=== PATIENT | male | born 1940 | race African-American/Black ===

== ENCOUNTER 2018-11-24 15:25 | Inpatient (IN) | payer BC, OTHER ==
[~2018-11-24] VITALS: Ht 162.6 cm; Wt 114.8 kg
[~2018-11-24 15:25] MED LIST: ACET325T9 PO; ACET500T33 PO; ACET500T68 PO; ALLO100T PO; AMLO10TA8 PO; AMLO5TAB10 PO; AMOX1TAB10 PO; ASPI-612 PO; ATOR40TA59 PO; ATORVASTATIN CA80 MG PO; CALC0.5C8 PO; CARV12.511 PO; CARV25TA2 PO; CARV3.1210 PO; CHOL2000 PO; CHOL200074 PO; CLON0.1T12 PO; CLOP75TA PO; CYAN-25 PO; FOLI0.8T21 PO; FURO20TA3 PO; FURO40TA4 PO; FURO80TA3 PO; HUM100VI5 SQ; HYDR-2761 PO; HYDR-3164 PO; INSU100I11 SQ; INSU100I16 SQ; LACT1CAP19 PO; LISI10TA2 PO; LOSA-73 PO; OMEP20CA10 PO; OMEP40CA5 PO; PANT40TA77 PO; PRED-220 PO; PREG25CA PO; PREG50CA PO; Pantoprazole PO; SENN1TAB15 PO; SEVE800T9 PO; WARF-31 PO; WARF-78 PO; WARF2TAB PO; WARF3TAB50 PO; WARF6TAB47 PO
[2018-11-24 17:52] VITALS: BP 119/35
[2018-11-24 19:00] VITALS: BP 149/90
[2018-11-24] MEDS ORDERED: ASPI-630 PO (20:22)
[2018-11-24] MEDS ORDERED: HYDR-2761 PO (20:22)
[2018-11-24] MEDS ORDERED: ACET325T9 PO (20:22)
[2018-11-24] MEDS ORDERED: CYAN-25 PO (20:22)
[2018-11-24] MEDS ORDERED: PREG50CA PO (20:22)
[2018-11-24] MEDS ORDERED: PANT20TA2 PO (20:22)
[2018-11-24] MEDS ORDERED: LACT1CAP48 PO (20:22)
[2018-11-24] MEDS ORDERED: SEVE800T9 PO (20:22)
[2018-11-24] MEDS ORDERED: FOLI1CAP10 PO (20:22)
[2018-11-24] MEDS ORDERED: CHOL10003 PO (20:22)
[2018-11-24] MEDS ORDERED: ALLO100T PO (20:22)
[2018-11-24] MEDS ORDERED: ATOR40TA PO (20:22)
[2018-11-24] MEDS ORDERED: CLOP75TA PO (20:22)
[2018-11-24] MEDS ORDERED: CARV3.1210 PO (20:22)
[2018-11-24] MEDS ORDERED: INSU100V SQ (20:29)
[2018-11-24] MEDS ORDERED: DEXTROSE 50% 25 GM / 50ML DISP.SYRIN. IV PRN (20:45)
[2018-11-24] MEDS ORDERED: INSULIN LISPRO 300 UNITS/3 ML INSULN.PEN. SQ SCH (21:00)
[2018-11-24] MEDS: LACTOBACILLUS RHAMNOSUS GG 1 CAPSULE. PO SCH (21:47)
[2018-11-24] MEDS: ATORVASTATIN CALCIUM 40 MG TABLET. PO SCH (21:47)
[2018-11-24] MEDS: HYDROcodone/APAP 5/325MG 1 TAB TABLET PO PRN (21:47)
[2018-11-24] MEDS: PREGABALIN 50 MG CAPSULE PO SCH (21:47)
[2018-11-24] MEDS: CARVEDILOL 3.125 MG TABLET. PO SCH (21:48)
[2018-11-24 22:44] VITALS: BP 136/88
--- NOTE | 2018-11-25 00:01 | NUR ---
Pt. arrived around 174 as a direct admit. He is A/O x4 and will make needs known.
[2018-11-25 02:37] VITALS: BP 108/43
[2018-11-25 06:07] LABS: BASO % 0 % (0-3); EOS # 0.3 x10^3/uL (0.0-0.7); EOS % 6 % (0-3); HEMATOCRIT 21.3 % (39.0-53.0); HEMOGLOBIN 7.2 g/dL (13.0-17.5); LYMPH # 1.1 x10^3/uL (1.0-4.8); LYMPH % 22 % (24-48); MEAN CORPUSCULAR HEMOGLOBIN 31 pg (25-35); MEAN CORPUSCULAR HGB CONC 34 g/dL (31-37); MEAN CORPUSCULAR VOLUME 92 fL (79-100); MONO # 0.4 x10^3/uL (0.0-1.1); MONO % 8 % (0-9); NEUT # 3.4 x10^3uL (1.8-7.7); NEUT % 64 % (31-73); PLATELET COUNT 109 x10^3/uL (140-400); RED BLOOD COUNT 2.32 x10^6/uL (4.30-5.70); WHITE BLOOD COUNT 5.3 x10^3/uL (4.0-11.0)
--- NOTE | 2018-11-25 06:23 | EKG ---
[facility] [address] [place] [address] Test Date: 2018-11-25 Test Time: 07:16:32 Pat Name: NARENDRA MACIAS Department: Room: 4 Gender: M E Commerce Developer: ADAN : 1940 Requested By: KIMI TIDWELL Order Number: [id number] Reading MD: Griffin Soto Measurements Intervals [place] Rate: 60 P: RI: QRS: 117 QRSD: 146 T: -178 QT: 474 QTc: 474 Interpretive Statements V PACED RHYTHM Electronically Signed On 11-30-2018 15:12:25 DIGITAL STRATEGIST SENIOR MANAGER by Griffin Soto
[2018-11-25 06:26] LABS: ALBUMIN 2.4 g/dL (3.4-5.0); ALBUMIN/GLOBULIN RATIO 0.5 (1.0-1.7); CALCIUM 8.6 mg/dL (8.5-10.1); CREATININE 6.9 mg/dL (0.7-1.3); GFR 9.4; TOTAL BILIRUBIN 0.9 mg/dL (0.2-1.0); TOTAL PROTEIN 6.9 g/dL (6.4-8.2)
[2018-11-25 06:31] LABS: POTASSIUM 5.9 mmol/L (3.5-5.1)
[2018-11-25 06:46] LABS: PROTHROMBIN TIME PATIENT 17.6 SEC (11.7-14.0)
[2018-11-25 07:00] VITALS: BP 109/43
--- NOTE | 2018-11-25 07:32 | NUR ---
Notified Dr. Byers's and Dr. James's answering services about consults and waiting for a call back. Talked w/ Dr Clay about consult and he will see him this am.
[2018-11-25] MEDS ORDERED: INSULIN LISPRO 300 UNITS/3 ML INSULN.PEN. SQ SCH (08:00)
[2018-11-25] MEDS: INSULIN LISPRO 300 UNITS/3 ML INSULN.PEN. SQ SCH ×3 (08:00→17:00)
[2018-11-25] MEDS: PANTOPRAZOLE 40 MG TABLET.DR. PO SCH (08:19)
[2018-11-25] MEDS: HYDROcodone/APAP 5/325MG 1 TAB TABLET PO PRN ×2 (08:19→21:21)
[2018-11-25] MEDS: ALLOPURINOL 100 MG TABLET. PO SCH (08:19)
[2018-11-25] MEDS: ASPIRIN CHEWABLE 81 MG TABLET. PO SCH (08:20)
[2018-11-25] MEDS: FOLIC/VIT B COMP W-C (RENAL) TABLET. PO SCH (08:20)
[2018-11-25] MEDS: CARVEDILOL 3.125 MG TABLET. PO SCH ×2 (08:20→19:20)
[2018-11-25] MEDS: LACTOBACILLUS RHAMNOSUS GG 1 CAPSULE. PO SCH ×2 (08:20→21:21)
[2018-11-25] MEDS: CLOPIDOGREL BISULFATE 75 MG TABLET PO SCH (08:20)
[2018-11-25] MEDS: SEVELAMER CARBONATE 800 MG TABLET. PO SCH ×3 (08:20→17:00)
[2018-11-25] MEDS: CHOLECALCIFEROL (VITAMIN D3) 1,000 UNIT TABLET PO SCH (08:20)
[2018-11-25] MEDS: CYANOCOBALAMIN (VITAMIN B-12) 1,000 MCG TABLET. PO SCH (08:21)
--- NOTE | 2018-11-25 08:38 | RAD ---
Chest radiograph 11/25/2018 7:26 AM INDICATION: Shortness of air, COPD COMPARISON: November 01, 2018 TECHNIQUE: Portable upright frontal view of the chest is provided. FINDINGS: The cardiomediastinal silhouette is enlarged. Right IJ central venous catheter is identified at the distal tip projecting over the cavoatrial junction. Left chest wall cardiac device is identified with a single lead projecting over the right ventricle. There are no pleural effusions. There is no pulmonary vascular congestion. There is no pneumothorax. The lungs are clear. No significant osseous abnormality is identified. IMPRESSION: Stable cardiomegaly without acute cardiopulmonary process. Electronically signed by: Radha Gonzalez MD (11/25/2018 8:34 AM) [id number]
--- NOTE | 2018-11-25 09:07 | PDOC ---
Provider Note Provider Note Vascular F/U consult , not dictated S/P recent amputation rt 1st toe S/P recent angiogram showing severe distal tibial disease Pt. with CRF on dialysis/DM/PVD S/P remote amp lt 1st toe , healed well PE: unable to palpate rt. popliteal or pedal pulse Nicely granulating ulcer lateral rt. ankle Some granulation tissue in proximal aspect of rt. 1st toe amp site, distally still with some necrotic tissue Imp: Poor chance of healing due to severe distal tibial disease Plan: Phani to wound, recommend HBO consult, if unable to heal would require a rt BK amp., Will follow while here. KIMI REBOLLEDO MD Nov 25, 2018 09:07
--- NOTE | 2018-11-25 09:31 | NUR ---
IP: Pt has a hx of vre and MSSA in toe on and R foot wound on 11/02/18. Pt readmitted with wound. Pt to be in contact precautions.
--- NOTE | 2018-11-25 09:36 | NUR ---
SW following for discharge planning, Discussed with RN. Pt is from [facility] and can return to [facility] when he is ready to discharge. SW will continue to follow.
[2018-11-25] MEDS: COLLAGENASE 250 UNIT/GM TOPICAL OINTMENT 30GM TUBE. TP SCH (09:51)
--- NOTE | 2018-11-25 10:22 | PDOC1 ---
History and Physical Date of Admission Date of Admission DATE: 11/25/18 TIME: 10:10 Identification/Chief Complaint Chief Complaint necrotic left foot wound with history of osteomyelitis of right first toe and first metatarsal History of Present Illness History of Present Illness history of osteomyelitis of right first toe and first metatarsal and non healing right great toe wound treated with iv meropenem and oral zyvox and wound vac at [facility] seeen by ID doctor Joselito trejo who recommended hospitalization because wound was necrotic and looked worse. no fever. Past Medical History Cardiovascular: AFIB, HTN, Other (PAD) CENTRAL NERVOUS SYSTEM: Periperal neuropathy Renal/: Other (end stage renal disease on hemodialyusis) Endocrine: Diabetes Past Surgical History Past Surgical History: Pacemaker, Cataract Removal, Other (pacemaker and lefgt femoral artery stend and amputation of lecft gret toe) Family History Family History: Other (not contributory) Social History Smoke: No ALCOHOL: none Drugs: None Current Medications Current Medications Current Medications Acetaminophen (Tylenol) 325 mg PRN Q4HRS PRN PO MILD PAIN / TEMP; Start at 20:30 Allopurinol (Zyloprim) 100 mg DAILY PO Last administered on 11/25/18at 08:19; Start 11/25/18 at 09:00 Aspirin (Children'S Aspirin) 81 mg DAILY PO Last administered on 11/25/18at 08: 20; Start 11/25/18 at 09:00 Atorvastatin Calcium (Lipitor) 40 mg HS PO Last administered on 11/24/18at 21: 47; Start 11/24/18 at 21:00 Carvedilol (Coreg) 3.125 mg BIDWMEALS PO Last administered on 11/25/18at 08:20 ; Start 11/24/18 at 21:00 Vitamin D (Vitamin D3) 1,000 unit DAILY PO Last administered on 11/25/18at 08: 20; Start 11/25/18 at 09:00 Clopidogrel Bisulfate (Plavix) 75 mg DAILY PO Last administered on 11/25/18at 08:20; Start 11/25/18 at 09:00 Cyanocobalamin (Vitamin B-12) 1,000 mcg DAILY PO Last administered on at 08:21; Start 11/25/18 at 09:00 Acetaminophen/ Hydrocodone Bitart (Lortab 5/325) 1 tab PRN Q4HRS PRN PO MODERATE - SEVERE PAIN Last administered on 11/25/18at 08:19; Start 11/24/18 at 20:30 Pregabalin (Lyrica) 50 mg HS PO Last administered on 11/24/18at 21:47; Start 11/24/18 at 21:00 Sevelamer Carbonate (Renvela) 800 mg TIDWMEALS PO Last administered on at 08:20; Start 11/25/18 at 08:00 Vitamin B Complex/ Vitamin C (Krista-Beatriz) 1 tab DAILY PO Last administered on at 08:20; Start 11/25/18 at 09:00 Lactobacillus Rhamnosus (Culturelle) 1 cap BID PO Last administered on at 08:20; Start 11/24/18 at 21:00 Pantoprazole Sodium (Protonix) 40 mg DAILYAC PO Last administered on at 08:19; Start 11/25/18 at 07:30 Insulin Human Lispro (HumaLOG) 0-5 UNITS TIDWMEALS SQ ; Start 11/24/18 at 21:00 ; Stop 11/24/18 at 21:57; Status DC Dextrose (Dextrose 50%-Water Syringe) 12.5 gm PRN Q15MIN PRN IV SEE COMMENTS; Start 11/24/18 at 20:45 Insulin Human Lispro (HumaLOG) 0-5 UNITS TIDWMEALS SQ ; Start 11/25/18 at 08:00 ; Stop 11/25/18 at 08:00; Status DC Insulin Human Lispro (HumaLOG) 0-5 UNITS TIDWMEALS SQ ; Start 11/25/18 at 08:00 Collagenase (Santyl) 1 judi DAILY TP Last administered on 11/25/18at 09:51; Start 11/25/18 at 10:00 Active Scripts Active Hydrocodone-Apap 5-325 (Hydrocodone Bit/Acetaminophen) 1 Tab Tablet 1 Tab PO PRN Q4HRS PRN 30 Days Aspirin Ec (Aspirin) 81 Mg Tablet. 81 Mg PO DAILYWBKFT 30 Days [Pantoprazole] 40 MG Tablet.dr 40 Mg PO DAILYAC 30 Days Humalog (Insulin Lispro) 100 Unit/1 Ml Insuln.pen 0 Units SQ TIDWMEALS 30 Days BG 150-199= 1 units 200-299= 2 units 300-399= 4 units 400-499= 6 units ac tid sliding scale Prednisone (Prednisone) 10 Mg Tablet 10 Mg PO DAILY 4 Days Culturelle (Lactobacillus Rhamnosus Gg) 1 Each Cap.sprink 1 Cap PO BID 30 Days Tylenol (Acetaminophen) 325 Mg Tablet 325 Mg PO PRN Q4HRS PRN 30 Days Carvedilol (Carvedilol) 3.125 Mg Tablet 3.125 Mg PO BIDWMEALS 30 Days Renvela (Sevelamer Carbonate) 800 Mg Tablet 800 Mg PO TIDWMEALS 30 Days Pantoprazole Sodium 40 Mg Tablet.dr 40 Mg PO DAILYAC 30 Days Krista-Beatriz Tablet (Folic Acid/Vitamin B Comp W-C) 0.8 Mg Tablet 1 Tab PO DAILY 30 Days Reported Humalog (Insulin Lispro) 100 Unit/1 Ml Vial 1 Unit SQ TIDAC Vitamin B-12 (Cyanocobalamin (Vitamin B-12)) 1,000 Mcg Tablet 1 Tab PO DAILY Vitamin D3 (Cholecalciferol (Vitamin D3)) 1,000 Unit Tablet 1 Tab PO DAILY Allopurinol 100 Mg Tablet 1 Tab PO DAILY Renal Caps Softgel (Folic Acid/Vitamin B Comp W-C) 1 Mg Capsule 1 Cap PO DAILY Acidophilus Lactobacilli (Lactobacillus Acidophilus) 1 Each Capsule 1 Each PO BID Protonix (Pantoprazole Sodium) 20 Mg Tablet.dr 40 Mg PO DAILY Renvela (Sevelamer Carbonate) 800 Mg Tablet 800 Mg PO TIDWMEALS Lyrica (Pregabalin) 50 Mg Capsule 50 Mg PO HS Tylenol (Acetaminophen) 325 Mg Tablet 1 Tab PO PRN Q4HRS Hydrocodone-Apap 5-325 (Hydrocodone Bit/Acetaminophen) 1 Tab Tablet 1 Tab PO PRN Q4HRS PRN Aspirin 81 Mg Tab.chew 81 Mg PO DAILY Carvedilol (Carvedilol) 3.125 Mg Tablet 3.125 Mg PO BIDWMEALS Lipitor (Atorvastatin Calcium) 40 Mg Tablet 40 Mg PO HS Clopidogrel (Clopidogrel Bisulfate) 75 Mg Tablet 75 Mg PO DAILY Vitamin D (Cholecalciferol (Vitamin D3)) 2,000 Unit Capsule 1 Cap PO DAILY Counselor 5-325 Tablet (Acetaminophen/Hydrocodone Bitart) 1 Each Tablet 1 Tab PO PRN Q4HRS PRN Lyrica (Pregabalin) 50 Mg Capsule 25 Mg PO HS Clopidogrel (Clopidogrel Bisulfate) 75 Mg Tablet 1 Tab PO DAILY Atorvastatin Calcium 40 Mg Tablet 40 Mg PO HS Allopurinol 100 Mg Tablet 1 Tab PO DAILY Vitamin B-12 (Cyanocobalamin (Vitamin B-12)) 1,000 Mcg Tablet 1 Tab PO DAILY Vitamin D-3 (Cholecalciferol (Vitamin D3)) 2,000 Unit Capsule 1,000 Unit PO DAILY Allergies Allergies: Coded Allergies: I S O L A T I O N *CONTACT* (Verified Allergy, Unknown, 11/25/18) vre No Known Medication Allergies (Verified Allergy, Unknown, 11/25/18) ROS Skin: Yes Other (foot wound) Physical Exam General: Alert HEENT: Atraumatic Lungs: Clear to auscultation Heart: S1S2 Abdomen: Soft, Other (obese) Extremities: No edema, Other (left great toe amputation. granulation tissure right ankle wound. necrotic left foot wound) Skin: No rashes Vitals Vitals Vital Signs Date Time Temp Pulse Resp B/P (MAP) Pulse Ox O2 Delivery O2 Flow Rate FiO2 11/25/18 09:44 Nasal Cannula 3.0 11/25/18 08:20 60 109/43 11/25/18 07:00 98.0 20 100 98.0 Labs Labs Laboratory Tests Test 11/24/18 19:56 11/25/18 05:25 11/25/18 07:03 Glucose (Fingerstick) 146 mg/dL (70-99) 82 mg/dL (70-99) White Blood Count 5.3 x10^3/uL (4.0-11.0) Red Blood Count 2.32 x10^6/uL (4.30-5.70) Hemoglobin 7.2 g/dL (13.0-17.5) Hematocrit 21.3 % (39.0-53.0) Mean Corpuscular Volume 92 fL (79-100) Mean Corpuscular Hemoglobin 31 pg (25-35) Mean Corpuscular Hemoglobin Concent 34 g/dL (31-37) Red Cell Distribution Width 19.0 % (11.5-14.5) Platelet Count 109 x10^3/uL (140-400) Neutrophils (%) (Auto) 64 % (31-73) Lymphocytes (%) (Auto) 22 % (24-48) Monocytes (%) (Auto) 8 % (0-9) Eosinophils (%) (Auto) 6 % (0-3) Basophils (%) (Auto) 0 % (0-3) Neutrophils # (Auto) 3.4 x10^3uL (1.8-7.7) Lymphocytes # (Auto) 1.1 x10^3/uL (1.0-4.8) Monocytes # (Auto) 0.4 x10^3/uL (0.0-1.1) Eosinophils # (Auto) 0.3 x10^3/uL (0.0-0.7) Basophils # (Auto) 0.0 x10^3/uL (0.0-0.2) Erythrocyte Sedimentation Rate 90 (0-15) Prothrombin Time 17.6 SEC (11.7-14.0) Prothromb Time International Ratio 1.5 (0.8-1.1) Sodium Level 138 mmol/L (136-145) Potassium Level 5.9 mmol/L (3.5-5.1) Chloride Level 99 mmol/L (98-107) Carbon Dioxide Level 31 mmol/L (21-32) Anion Gap 8 (6-14) Blood Urea Nitrogen 64 mg/dL (8-26) Creatinine 6.9 mg/dL (0.7-1.3) Estimated GFR (Cockcroft-Gault) 9.4 BUN/Creatinine Ratio 9 (6-20) Glucose Level 97 mg/dL (70-99) Calcium Level 8.6 mg/dL (8.5-10.1) Total Bilirubin 0.9 mg/dL (0.2-1.0) Aspartate Amino Transf (AST/SGOT) 20 U/L (15-37) Alanine Aminotransferase (ALT/SGPT) 22 U/L (16-63) Alkaline Phosphatase 144 U/L (46-116) Total Protein 6.9 g/dL (6.4-8.2) Albumin 2.4 g/dL (3.4-5.0) Albumin/Globulin Ratio 0.5 (1.0-1.7) Laboratory Tests Test 11/24/18 19:56 11/25/18 05:25 11/25/18 07:03 Glucose (Fingerstick) 146 mg/dL (70-99) 82 mg/dL (70-99) White Blood Count 5.3 x10^3/uL (4.0-11.0) Red Blood Count 2.32 x10^6/uL (4.30-5.70) Hemoglobin 7.2 g/dL (13.0-17.5) Hematocrit 21.3 % (39.0-53.0) Mean Corpuscular Volume 92 fL (79-100) Mean Corpuscular Hemoglobin 31 pg (25-35) Mean Corpuscular Hemoglobin Concent 34 g/dL (31-37) Red Cell Distribution Width 19.0 % (11.5-14.5) Platelet Count 109 x10^3/uL (140-400) Neutrophils (%) (Auto) 64 % (31-73) Lymphocytes (%) (Auto) 22 % (24-48) Monocytes (%) (Auto) 8 % (0-9) Eosinophils (%) (Auto) 6 % (0-3) Basophils (%) (Auto) 0 % (0-3) Neutrophils # (Auto) 3.4 x10^3uL (1.8-7.7) Lymphocytes # (Auto) 1.1 x10^3/uL (1.0-4.8) Monocytes # (Auto) 0.4 x10^3/uL (0.0-1.1) Eosinophils # (Auto) 0.3 x10^3/uL (0.0-0.7) Basophils # (Auto) 0.0 x10^3/uL (0.0-0.2) Erythrocyte Sedimentation Rate 90 (0-15) Prothrombin Time 17.6 SEC (11.7-14.0) Prothromb Time International Ratio 1.5 (0.8-1.1) Sodium Level 138 mmol/L (136-145) Potassium Level 5.9 mmol/L (3.5-5.1) Chloride Level 99 mmol/L (98-107) Carbon Dioxide Level 31 mmol/L (21-32) Anion Gap 8 (6-14) Blood Urea Nitrogen 64 mg/dL (8-26) Creatinine 6.9 mg/dL (0.7-1.3) Estimated GFR (Cockcroft-Gault) 9.4 BUN/Creatinine Ratio 9 (6-20) Glucose Level 97 mg/dL (70-99) Calcium Level 8.6 mg/dL (8.5-10.1) Total Bilirubin 0.9 mg/dL (0.2-1.0) Aspartate Amino Transf (AST/SGOT) 20 U/L (15-37) Alanine Aminotransferase (ALT/SGPT) 22 U/L (16-63) Alkaline Phosphatase 144 U/L (46-116) Total Protein 6.9 g/dL (6.4-8.2) Albumin 2.4 g/dL (3.4-5.0) Albumin/Globulin Ratio 0.5 (1.0-1.7) Images Images cxr negative ekg paced VTE Prophylaxis Ordered VTE Prophylaxis Devices: Yes VTE Pharmacological Prophylaxi: Yes (heparin sq) Assessment/Plan Assessment/Plan necrotic left foot wound osteomyelitis of right great toe and first metatarsal left ankle wound with granulation tissue severe PAD RLE involving tibial and pedal vessels ESRD on hemodialysis m-w-f diabetes mellitus type 2 with peripheral neuropathy morbid obesity debility Plan consult vascular surgery and ID and wound care HBO consult continue antibiotics and wound care and wound vac hemodialysis micaf KIMI TIDWELL MD Nov 25, 2018 10:22
--- NOTE | 2018-11-25 10:23 | PDOC ---
Infectious Disease Note Subjective Subjective pt known to us, was admitted from office with necrotic wound. ALEXUS VAUGHAN denies n/v/d/fever Vital Sign Vital Signs Vital Signs Date Time Temp Pulse Resp B/P (MAP) Pulse Ox O2 Delivery O2 Flow Rate FiO2 11/25/18 09:44 Nasal Cannula 3.0 11/25/18 08:20 60 109/43 11/25/18 07:00 98.0 20 100 98.0 Physical Exam PHYSICAL EXAM GENERAL:axox3 in nad HEENT: Oral cavity clear NECK: Supple. RT SCL (11/09) LUNGS: Clear. HEART: S1, S2 regular. ABDOMEN: Soft, NT, BS present EXTREMITIES: Wound vac in place right foot. seen wound with wound team, half wound looks good, rest necrotic NEUROLOGIC: Awake, responds appropriately Labs Lab Laboratory Tests Test 11/24/18 19:56 11/25/18 05:25 11/25/18 07:03 Glucose (Fingerstick) 146 mg/dL (70-99) 82 mg/dL (70-99) White Blood Count 5.3 x10^3/uL (4.0-11.0) Red Blood Count 2.32 x10^6/uL (4.30-5.70) Hemoglobin 7.2 g/dL (13.0-17.5) Hematocrit 21.3 % (39.0-53.0) Mean Corpuscular Volume 92 fL (79-100) Mean Corpuscular Hemoglobin 31 pg (25-35) Mean Corpuscular Hemoglobin Concent 34 g/dL (31-37) Red Cell Distribution Width 19.0 % (11.5-14.5) Platelet Count 109 x10^3/uL (140-400) Neutrophils (%) (Auto) 64 % (31-73) Lymphocytes (%) (Auto) 22 % (24-48) Monocytes (%) (Auto) 8 % (0-9) Eosinophils (%) (Auto) 6 % (0-3) Basophils (%) (Auto) 0 % (0-3) Neutrophils # (Auto) 3.4 x10^3uL (1.8-7.7) Lymphocytes # (Auto) 1.1 x10^3/uL (1.0-4.8) Monocytes # (Auto) 0.4 x10^3/uL (0.0-1.1) Eosinophils # (Auto) 0.3 x10^3/uL (0.0-0.7) Basophils # (Auto) 0.0 x10^3/uL (0.0-0.2) Erythrocyte Sedimentation Rate 90 (0-15) Prothrombin Time 17.6 SEC (11.7-14.0) Prothromb Time International Ratio 1.5 (0.8-1.1) Sodium Level 138 mmol/L (136-145) Potassium Level 5.9 mmol/L (3.5-5.1) Chloride Level 99 mmol/L (98-107) Carbon Dioxide Level 31 mmol/L (21-32) Anion Gap 8 (6-14) Blood Urea Nitrogen 64 mg/dL (8-26) Creatinine 6.9 mg/dL (0.7-1.3) Estimated GFR (Cockcroft-Gault) 9.4 BUN/Creatinine Ratio 9 (6-20) Glucose Level 97 mg/dL (70-99) Calcium Level 8.6 mg/dL (8.5-10.1) Total Bilirubin 0.9 mg/dL (0.2-1.0) Aspartate Amino Transf (AST/SGOT) 20 U/L (15-37) Alanine Aminotransferase (ALT/SGPT) 22 U/L (16-63) Alkaline Phosphatase 144 U/L (46-116) Total Protein 6.9 g/dL (6.4-8.2) Albumin 2.4 g/dL (3.4-5.0) Albumin/Globulin Ratio 0.5 (1.0-1.7) Objective Assessment Recent 1 st toe amp with developing gangrene, s/p right first toe open ray amputation, Right lateral malleolus wound s/p sharp excisional debridement removing necrotic subcutaneous tissue, 11/02. BC neg 11/02. enterobacter aerogenes,Cipro sensitive, enterococcus fecalis VRE, linezolid sensitive,Amp sens not available, daptomycin suscep,d/w micro Gram variable nuria id still pending PAD s/p angio recently ESRD/HD Diarrhea Plan Plan of Care cont zyvox and meropenem hyperbaric o2 supportive care d/w ROD Rucker MD Nov 25, 2018 10:23
[2018-11-25] MEDS ORDERED: DIALYSIS PATIENT. MC PRN ×3 (10:45→14:45)
[2018-11-25 11:00] VITALS: BP 96/33
[2018-11-25] MEDS: LINEZOLID 600 MG TABLET PO SCH ×2 (12:04→21:22)
--- NOTE | 2018-11-25 13:22 | PDOC2 ---
CONSULT Date of Consult Date of Consult DATE: 11/25/18 TIME: 13:16 Reason for Consult Reason for Consult: ESRD Source Source: Chart review, Patient History of Present Illness Reason for Visit: Pt is 77 yo AAM with necrotic left foot wound with history of osteomyelitis of right first toe and first metatarsal and non healing right great toe wound treated with iv meropenem and oral zyvox and wound vac at [facility] ESRD on HD MWF . denies N/V/D. No F/C Past Medical History Cardiovascular: AFIB, HTN, Other (PAD) CENTRAL NERVOUS SYSTEM: Periperal neuropathy Renal/: Other (end stage renal disease on hemodialyusis) Endocrine: Diabetes Past Surgical History Past Surgical History: Pacemaker, Cataract Removal, Other (pacemaker and lefgt femoral artery stend and amputation of lecft gret toe) Family History Family History: Other (not contributory) Social History No ALCOHOL: none Drugs: None Current Medications Current Medications Current Medications Acetaminophen (Tylenol) 325 mg PRN Q4HRS PRN PO MILD PAIN / TEMP; Start at 20:30 Allopurinol (Zyloprim) 100 mg DAILY PO Last administered on 11/25/18at 08:19; Start 11/25/18 at 09:00 Aspirin (Children'S Aspirin) 81 mg DAILY PO Last administered on 11/25/18at 08: 20; Start 11/25/18 at 09:00 Atorvastatin Calcium (Lipitor) 40 mg HS PO Last administered on 11/24/18at 21: 47; Start 11/24/18 at 21:00 Carvedilol (Coreg) 3.125 mg BIDWMEALS PO Last administered on 11/25/18at 08:20 ; Start 11/24/18 at 21:00 Vitamin D (Vitamin D3) 1,000 unit DAILY PO Last administered on 11/25/18at 08: 20; Start 11/25/18 at 09:00 Clopidogrel Bisulfate (Plavix) 75 mg DAILY PO Last administered on 11/25/18at 08:20; Start 11/25/18 at 09:00 Cyanocobalamin (Vitamin B-12) 1,000 mcg DAILY PO Last administered on at 08:21; Start 11/25/18 at 09:00 Acetaminophen/ Hydrocodone Bitart (Lortab 5/325) 1 tab PRN Q4HRS PRN PO MODERATE - SEVERE PAIN Last administered on 11/25/18at 08:19; Start 11/24/18 at 20:30 Pregabalin (Lyrica) 50 mg HS PO Last administered on 11/24/18at 21:47; Start 11/24/18 at 21:00 Sevelamer Carbonate (Renvela) 800 mg TIDWMEALS PO Last administered on at 12:04; Start 11/25/18 at 08:00 Vitamin B Complex/ Vitamin C (Krista-Beatriz) 1 tab DAILY PO Last administered on at 08:20; Start 11/25/18 at 09:00 Lactobacillus Rhamnosus (Culturelle) 1 cap BID PO Last administered on at 08:20; Start 11/24/18 at 21:00 Pantoprazole Sodium (Protonix) 40 mg DAILYAC PO Last administered on at 08:19; Start 11/25/18 at 07:30 Insulin Human Lispro (HumaLOG) 0-5 UNITS TIDWMEALS SQ ; Start 11/24/18 at 21:00 ; Stop 11/24/18 at 21:57; Status DC Dextrose (Dextrose 50%-Water Syringe) 12.5 gm PRN Q15MIN PRN IV SEE COMMENTS; Start 11/24/18 at 20:45 Insulin Human Lispro (HumaLOG) 0-5 UNITS TIDWMEALS SQ ; Start 11/25/18 at 08:00 ; Stop 11/25/18 at 08:00; Status DC Insulin Human Lispro (HumaLOG) 0-5 UNITS BG 300-39... TIDWMEALS SQ ; Start at 08:00 Collagenase (Santyl) 1 judi DAILY TP Last administered on 11/25/18at 09:51; Start 11/25/18 at 10:00 Meropenem 500 mg/ Sodium Chloride 50 ml @ 100 mls/hr Q12HR IV ; Start at 21:00; Status UNV Daptomycin 690 mg/ Sodium Chloride 50 ml @ 100 mls/hr MoWeFr@1600 IV ; Start 11/25/18 at 16:00 Heparin Sodium (Porcine) (Heparin Sodium) 5,000 unit Q12HR SQ ; Start 11/25/18 at 21:00 Meropenem 500 mg/ Sodium Chloride 50 ml @ 100 mls/hr DAILY16 IV ; Start at 16:00 Linezolid (Zyvox) 600 mg BID PO Last administered on 11/25/18at 12:04; Start 11/25/18 at 11:00 Info (PHARMACY MONITORING -- do not chart) 1 each PRN DAILY PRN MC SEE COMMENTS ; Start 11/25/18 at 10:45 Active Scripts Active Hydrocodone-Apap 5-325 (Hydrocodone Bit/Acetaminophen) 1 Tab Tablet 1 Tab PO PRN Q4HRS PRN 30 Days Aspirin Ec (Aspirin) 81 Mg Tablet. 81 Mg PO DAILYWBKFT 30 Days [Pantoprazole] 40 MG Tablet. 40 Mg PO DAILYAC 30 Days Humalog (Insulin Lispro) 100 Unit/1 Ml Insuln.pen 0 Units SQ TIDWMEALS 30 Days BG 150-199= 1 units 200-299= 2 units 300-399= 4 units 400-499= 6 units ac tid sliding scale Prednisone (Prednisone) 10 Mg Tablet 10 Mg PO DAILY 4 Days Culturelle (Lactobacillus Rhamnosus Gg) 1 Each Cap.sprink 1 Cap PO BID 30 Days Tylenol (Acetaminophen) 325 Mg Tablet 325 Mg PO PRN Q4HRS PRN 30 Days Carvedilol (Carvedilol) 3.125 Mg Tablet 3.125 Mg PO BIDWMEALS 30 Days Renvela (Sevelamer Carbonate) 800 Mg Tablet 800 Mg PO TIDWMEALS 30 Days Pantoprazole Sodium 40 Mg Tablet. 40 Mg PO DAILYAC 30 Days Krista-Beatriz Tablet (Folic Acid/Vitamin B Comp W-C) 0.8 Mg Tablet 1 Tab PO DAILY 30 Days Reported Humalog (Insulin Lispro) 100 Unit/1 Ml Vial 1 Unit SQ TIDAC Vitamin B-12 (Cyanocobalamin (Vitamin B-12)) 1,000 Mcg Tablet 1 Tab PO DAILY Vitamin D3 (Cholecalciferol (Vitamin D3)) 1,000 Unit Tablet 1 Tab PO DAILY Allopurinol 100 Mg Tablet 1 Tab PO DAILY Renal Caps Softgel (Folic Acid/Vitamin B Comp W-C) 1 Mg Capsule 1 Cap PO DAILY Acidophilus Lactobacilli (Lactobacillus Acidophilus) 1 Each Capsule 1 Each PO BID Protonix (Pantoprazole Sodium) 20 Mg Tablet.dr 40 Mg PO DAILY Renvela (Sevelamer Carbonate) 800 Mg Tablet 800 Mg PO TIDWMEALS Lyrica (Pregabalin) 50 Mg Capsule 50 Mg PO HS Tylenol (Acetaminophen) 325 Mg Tablet 1 Tab PO PRN Q4HRS Hydrocodone-Apap 5-325 (Hydrocodone Bit/Acetaminophen) 1 Tab Tablet 1 Tab PO PRN Q4HRS PRN Aspirin 81 Mg Tab.chew 81 Mg PO DAILY Carvedilol (Carvedilol) 3.125 Mg Tablet 3.125 Mg PO BIDWMEALS Lipitor (Atorvastatin Calcium) 40 Mg Tablet 40 Mg PO HS Clopidogrel (Clopidogrel Bisulfate) 75 Mg Tablet 75 Mg PO DAILY Vitamin D (Cholecalciferol (Vitamin D3)) 2,000 Unit Capsule 1 Cap PO DAILY [place] 5-325 Tablet (Acetaminophen/Hydrocodone Bitart) 1 Each Tablet 1 Tab PO PRN Q4HRS PRN Lyrica (Pregabalin) 50 Mg Capsule 25 Mg PO HS Clopidogrel (Clopidogrel Bisulfate) 75 Mg Tablet 1 Tab PO DAILY Atorvastatin Calcium 40 Mg Tablet 40 Mg PO HS Allopurinol 100 Mg Tablet 1 Tab PO DAILY Vitamin B-12 (Cyanocobalamin (Vitamin B-12)) 1,000 Mcg Tablet 1 Tab PO DAILY Vitamin D-3 (Cholecalciferol (Vitamin D3)) 2,000 Unit Capsule 1,000 Unit PO DAILY Allergies Allergies: Coded Allergies: I S O L A T I O N *CONTACT* (Verified Allergy, Unknown, 11/25/18) vre No Known Medication Allergies (Verified Allergy, Unknown, 11/25/18) ROS Review of System As per HPI Physical Exam Physical Exam GEN: NAD HEEN: om moist NECK: Supple CVS: RRR RESP: CTA, No Acc. Muscle Use GI: BS + ve, Non Tender, Non Distended : No Miller Ext- No edema Neuro Grossly normal Vital Signs Vital Signs Date Time Temp Pulse Resp B/P (MAP) Pulse Ox O2 Delivery O2 Flow Rate FiO2 11/25/18 11:00 98.8 68 20 96/33 (54) 100 RA/2L 98.8 11/25/18 09:44 3.0 Assessment & Plan ESRD - On HD MWF HD today as Ordered, seen on HD, tolerating well Discussed with lump receiver Labs reviewed Necrotic left foot wound/osteomyelitis of right great toe and first metatarsal ID and vascular Severe PAD RLE i DM type 2 with peripheral neuropathy- Morbid obesity Labs Labs Laboratory Tests Test 11/24/18 19:56 11/25/18 05:25 11/25/18 07:03 11/25/18 10:48 Glucose (Fingerstick) 146 mg/dL (70-99) 82 mg/dL (70-99) 101 mg/dL (70-99) White Blood Count 5.3 x10^3/uL (4.0-11.0) Red Blood Count 2.32 x10^6/uL (4.30-5.70) Hemoglobin 7.2 g/dL (13.0-17.5) Hematocrit 21.3 % (39.0-53.0) Mean Corpuscular Volume 92 fL (79-100) Mean Corpuscular Hemoglobin 31 pg (25-35) Mean Corpuscular Hemoglobin Concent 34 g/dL (31-37) Red Cell Distribution Width 19.0 % (11.5-14.5) Platelet Count 109 x10^3/uL (140-400) Neutrophils (%) (Auto) 64 % (31-73) Lymphocytes (%) (Auto) 22 % (24-48) Monocytes (%) (Auto) 8 % (0-9) Eosinophils (%) (Auto) 6 % (0-3) Basophils (%) (Auto) 0 % (0-3) Neutrophils # (Auto) 3.4 x10^3uL (1.8-7.7) Lymphocytes # (Auto) 1.1 x10^3/uL (1.0-4.8) Monocytes # (Auto) 0.4 x10^3/uL (0.0-1.1) Eosinophils # (Auto) 0.3 x10^3/uL (0.0-0.7) Basophils # (Auto) 0.0 x10^3/uL (0.0-0.2) Erythrocyte Sedimentation Rate 90 (0-15) Prothrombin Time 17.6 SEC (11.7-14.0) Prothromb Time International Ratio 1.5 (0.8-1.1) Sodium Level 138 mmol/L (136-145) Potassium Level 5.9 mmol/L (3.5-5.1) Chloride Level 99 mmol/L (98-107) Carbon Dioxide Level 31 mmol/L (21-32) Anion Gap 8 (6-14) Blood Urea Nitrogen 64 mg/dL (8-26) Creatinine 6.9 mg/dL (0.7-1.3) Estimated GFR (Cockcroft-Gault) 9.4 BUN/Creatinine Ratio 9 (6-20) Glucose Level 97 mg/dL (70-99) Calcium Level 8.6 mg/dL (8.5-10.1) Total Bilirubin 0.9 mg/dL (0.2-1.0) Aspartate Amino Transf (AST/SGOT) 20 U/L (15-37) Alanine Aminotransferase (ALT/SGPT) 22 U/L (16-63) Alkaline Phosphatase 144 U/L (46-116) Total Protein 6.9 g/dL (6.4-8.2) Albumin 2.4 g/dL (3.4-5.0) Albumin/Globulin Ratio 0.5 (1.0-1.7) Laboratory Tests Test 11/24/18 19:56 11/25/18 05:25 11/25/18 07:03 11/25/18 10:48 Glucose (Fingerstick) 146 mg/dL (70-99) 82 mg/dL (70-99) 101 mg/dL (70-99) White Blood Count 5.3 x10^3/uL (4.0-11.0) Red Blood Count 2.32 x10^6/uL (4.30-5.70) Hemoglobin 7.2 g/dL (13.0-17.5) Hematocrit 21.3 % (39.0-53.0) Mean Corpuscular Volume 92 fL (79-100) Mean Corpuscular Hemoglobin 31 pg (25-35) Mean Corpuscular Hemoglobin Concent 34 g/dL (31-37) Red Cell Distribution Width 19.0 % (11.5-14.5) Platelet Count 109 x10^3/uL (140-400) Neutrophils (%) (Auto) 64 % (31-73) Lymphocytes (%) (Auto) 22 % (24-48) Monocytes (%) (Auto) 8 % (0-9) Eosinophils (%) (Auto) 6 % (0-3) Basophils (%) (Auto) 0 % (0-3) Neutrophils # (Auto) 3.4 x10^3uL (1.8-7.7) Lymphocytes # (Auto) 1.1 x10^3/uL (1.0-4.8) Monocytes # (Auto) 0.4 x10^3/uL (0.0-1.1) Eosinophils # (Auto) 0.3 x10^3/uL (0.0-0.7) Basophils # (Auto) 0.0 x10^3/uL (0.0-0.2) Erythrocyte Sedimentation Rate 90 (0-15) Prothrombin Time 17.6 SEC (11.7-14.0) Prothromb Time International Ratio 1.5 (0.8-1.1) Sodium Level 138 mmol/L (136-145) Potassium Level 5.9 mmol/L (3.5-5.1) Chloride Level 99 mmol/L (98-107) Carbon Dioxide Level 31 mmol/L (21-32) Anion Gap 8 (6-14) Blood Urea Nitrogen 64 mg/dL (8-26) Creatinine 6.9 mg/dL (0.7-1.3) Estimated GFR (Cockcroft-Gault) 9.4 BUN/Creatinine Ratio 9 (6-20) Glucose Level 97 mg/dL (70-99) Calcium Level 8.6 mg/dL (8.5-10.1) Total Bilirubin 0.9 mg/dL (0.2-1.0) Aspartate Amino Transf (AST/SGOT) 20 U/L (15-37) Alanine Aminotransferase (ALT/SGPT) 22 U/L (16-63) Alkaline Phosphatase 144 U/L (46-116) Total Protein 6.9 g/dL (6.4-8.2) Albumin 2.4 g/dL (3.4-5.0) Albumin/Globulin Ratio 0.5 (1.0-1.7) Review All relevant outside records, renal labs, imaging studies, telemetry/EKG's were reviewed. WAYLON GONZALEZ MD Nov 25, 2018 13:22
--- NOTE | 2018-11-25 14:08 | NUR ---
Patient admitted last night. Spoke to Dr. Wilson, from vascular this morning, who reported no plan for surgery and that his recommendation is HBO therapy. Dr. Street updated with this plan who asked this RN to reach out to wound care for this to be set up as well as nephrology to have dialysis set up. This RN spoke to Kathryn MARTINEZ from Wound Care about the possibility of HBO therapy and how Dr. Wilson reported no need for surgery at this time. Kathryn reported to this RN that HBO therapy is usually done as outpatient and that their team will reach out to Dr. Wilson with this update and discuss patient . Dialysis set up as well and to start at 1530 today. Central line dressing also changed at this time.
[2018-11-25] MEDS ORDERED: IV NORMAL SALINE 1000ML BAG 1,000 ML IV PRN ×2 (14:30)
--- NOTE | 2018-11-25 16:00 | NUR ---
wound care patient in dialysis at this time, wound care will f/u on Wednesday11/28/2018.
[2018-11-25 19:00] VITALS: BP 125/35
[2018-11-25] MEDS: NORMAL SALINE IV SCH (19:21)
[2018-11-25] MEDS: DAPTOMYCIN IV SCH (19:21)
[2018-11-25] MEDS ORDERED: MEROPENEM 500 MG in IV NORMAL SALINE 50ML 50 ML IV SCH (21:00)
[2018-11-25] MEDS: MEROPENEM 500 MG in IV NORMAL SALINE 50ML 50 ML IV SCH (21:20)
[2018-11-25] MEDS: ATORVASTATIN CALCIUM 40 MG TABLET. PO SCH (21:22)
[2018-11-25] MEDS: PREGABALIN 50 MG CAPSULE PO SCH (21:22)
[2018-11-25] MEDS: HEPARIN for SUB-Q USE 5,000 UNIT/ML VIAL. SQ SCH (21:29)
[2018-11-25 22:42] VITALS: BP 121/30
--- NOTE | 2018-11-25 22:45 | NUR ---
Pt is refusing to be placed on the bipap due to the mask. He stated that he does not like the air to be all in his face. He has a nasal mask at home which he also states that his nephew will bring the mask in tomorrow.
--- NOTE | 2018-11-25 23:55 | NUR ---
Assuming care for this pt, report obtained from JUAN Dye. Will continue to monitor.
[2018-11-26 03:00] VITALS: BP 131/53
[2018-11-26 07:00] VITALS: BP 130/62
[2018-11-26] MEDS: INSULIN LISPRO 300 UNITS/3 ML INSULN.PEN. SQ SCH ×3 (07:39→16:48)
[2018-11-26] MEDS: CARVEDILOL 3.125 MG TABLET. PO SCH ×2 (08:03→16:47)
[2018-11-26] MEDS: HYDROcodone/APAP 5/325MG 1 TAB TABLET PO PRN ×3 (08:03→19:38)
[2018-11-26] MEDS: SEVELAMER CARBONATE 800 MG TABLET. PO SCH ×3 (08:03→16:47)
[2018-11-26] MEDS: PANTOPRAZOLE 40 MG TABLET.DR. PO SCH (08:03)
[2018-11-26] MEDS: ASPIRIN CHEWABLE 81 MG TABLET. PO SCH (08:04)
[2018-11-26] MEDS: CYANOCOBALAMIN (VITAMIN B-12) 1,000 MCG TABLET. PO SCH (08:04)
[2018-11-26] MEDS: ALLOPURINOL 100 MG TABLET. PO SCH (08:04)
[2018-11-26] MEDS: CLOPIDOGREL BISULFATE 75 MG TABLET PO SCH (08:04)
[2018-11-26] MEDS: LINEZOLID 600 MG TABLET PO SCH ×2 (08:04→21:09)
[2018-11-26] MEDS: LACTOBACILLUS RHAMNOSUS GG 1 CAPSULE. PO SCH ×2 (08:04→21:09)
[2018-11-26] MEDS: FOLIC/VIT B COMP W-C (RENAL) TABLET. PO SCH (08:04)
[2018-11-26] MEDS: CHOLECALCIFEROL (VITAMIN D3) 1,000 UNIT TABLET PO SCH (08:04)
[2018-11-26] MEDS: HEPARIN for SUB-Q USE 5,000 UNIT/ML VIAL. SQ SCH ×2 (08:24→21:18)
[2018-11-26] MEDS: COLLAGENASE 250 UNIT/GM TOPICAL OINTMENT 30GM TUBE. TP SCH (10:29)
--- NOTE | 2018-11-26 10:49 | PDOC ---
PROGRESS NOTES Subjective Subjective feels okay. discussed with nurse and patient. vascular surgery wants to rx with santyl and d/c wound vac and proceed with HBO which is done as out patient. Objective Objective Vital Signs Date Time Temp Pulse Resp B/P (MAP) Pulse Ox O2 Delivery O2 Flow Rate FiO2 11/26/18 09:10 Room Air 11/26/18 08:03 2.0 11/26/18 08:03 63 130/62 11/26/18 07:00 98.2 20 100 98.2 Intake and Output 11/26/18 07:01 Intake Total 600 ml Output Total 0 ml Balance 600 ml Intake Oral 600 ml Output Urine Total 0 ml # Voids 1 # Bowel Movements 1 Physical Exam Abdomen: Soft, Other (obese) Heart: Normal S1, Normal S2 Extremities: No edema, Other (left great toe amputation) General: Alert HEENT: Atraumatic Neuro: Normal speech Psych/Mental Status: Mental status NL Skin: No rashes, Other (dry dressing right foot) Assessment Assessment necrotic left foot wound osteomyelitis of right great toe and first metatarsal left ankle wound with granulation tissue severe PAD RLE involving tibial and pedal vessels ESRD on hemodialysis m-w-f diabetes mellitus type 2 with peripheral neuropathy morbid obesity debility Plan Plan of Care dismiss today to SNF if okay with ID out patient HBO rx santyl to wound continue iv meropenem and zyvox Comment Review of Relevant I have reviewed the following items simeon (where applicable) has been applied. Labs Laboratory Tests Test 11/24/18 19:56 11/24/18 22:50 11/25/18 05:25 11/25/18 07:03 Glucose (Fingerstick) 146 mg/dL (70-99) 82 mg/dL (70-99) Nasal Screen MRSA (PCR) Negative (Negative) White Blood Count 5.3 x10^3/uL (4.0-11.0) Red Blood Count 2.32 x10^6/uL (4.30-5.70) Hemoglobin 7.2 g/dL (13.0-17.5) Hematocrit 21.3 % (39.0-53.0) Mean Corpuscular Volume 92 fL (79-100) Mean Corpuscular Hemoglobin 31 pg (25-35) Mean Corpuscular Hemoglobin Concent 34 g/dL (31-37) Red Cell Distribution Width 19.0 % (11.5-14.5) Platelet Count 109 x10^3/uL (140-400) Neutrophils (%) (Auto) 64 % (31-73) Lymphocytes (%) (Auto) 22 % (24-48) Monocytes (%) (Auto) 8 % (0-9) Eosinophils (%) (Auto) 6 % (0-3) Basophils (%) (Auto) 0 % (0-3) Neutrophils # (Auto) 3.4 x10^3uL (1.8-7.7) Lymphocytes # (Auto) 1.1 x10^3/uL (1.0-4.8) Monocytes # (Auto) 0.4 x10^3/uL (0.0-1.1) Eosinophils # (Auto) 0.3 x10^3/uL (0.0-0.7) Basophils # (Auto) 0.0 x10^3/uL (0.0-0.2) Erythrocyte Sedimentation Rate 90 (0-15) Prothrombin Time 17.6 SEC (11.7-14.0) Prothromb Time International Ratio 1.5 (0.8-1.1) Sodium Level 138 mmol/L (136-145) Potassium Level 5.9 mmol/L (3.5-5.1) Chloride Level 99 mmol/L (98-107) Carbon Dioxide Level 31 mmol/L (21-32) Anion Gap 8 (6-14) Blood Urea Nitrogen 64 mg/dL (8-26) Creatinine 6.9 mg/dL (0.7-1.3) Estimated GFR (Cockcroft-Gault) 9.4 BUN/Creatinine Ratio 9 (6-20) Glucose Level 97 mg/dL (70-99) Calcium Level 8.6 mg/dL (8.5-10.1) Total Bilirubin 0.9 mg/dL (0.2-1.0) Aspartate Amino Transf (AST/SGOT) 20 U/L (15-37) Alanine Aminotransferase (ALT/SGPT) 22 U/L (16-63) Alkaline Phosphatase 144 U/L (46-116) Total Protein 6.9 g/dL (6.4-8.2) Albumin 2.4 g/dL (3.4-5.0) Albumin/Globulin Ratio 0.5 (1.0-1.7) Test 11/25/18 10:48 11/25/18 20:36 11/26/18 07:36 Glucose (Fingerstick) 101 mg/dL (70-99) 80 mg/dL (70-99) 103 mg/dL (70-99) Laboratory Tests Test 11/25/18 10:48 11/25/18 20:36 11/26/18 07:36 Glucose (Fingerstick) 101 mg/dL (70-99) 80 mg/dL (70-99) 103 mg/dL (70-99) Medications Current Medications Acetaminophen (Tylenol) 325 mg PRN Q4HRS PRN PO MILD PAIN / TEMP; Start at 20:30 Allopurinol (Zyloprim) 100 mg DAILY PO Last administered on 11/26/18 08:04; Start 11/25/18 at 09:00 Aspirin (Children'S Aspirin) 81 mg DAILY PO Last administered on 11/26/18 08: 04; Start 11/25/18 at 09:00 Atorvastatin Calcium (Lipitor) 40 mg HS PO Last administered on 11/25/18 21: 22; Start 11/24/18 at 21:00 Carvedilol (Coreg) 3.125 mg BIDWMEALS PO Last administered on 11/26/18 08:03 ; Start 11/24/18 at 21:00 Vitamin D (Vitamin D3) 1,000 unit DAILY PO Last administered on 11/26/18 08: 04; Start 11/25/18 at 09:00 Clopidogrel Bisulfate (Plavix) 75 mg DAILY PO Last administered on 11/26/18 08:04; Start 11/25/18 at 09:00 Cyanocobalamin (Vitamin B-12) 1,000 mcg DAILY PO Last administered on 08:04; Start 11/25/18 at 09:00 Acetaminophen/ Hydrocodone Bitart (Lortab 5/325) 1 tab PRN Q4HRS PRN PO MODERATE - SEVERE PAIN Last administered on 11/26/18 08:03; Start 11/24/18 at 20:30 Pregabalin (Lyrica) 50 mg HS PO Last administered on 11/25/18at 21:22; Start 11/24/18 at 21:00 Sevelamer Carbonate (Renvela) 800 mg TIDWMEALS PO Last administered on at 08:03; Start 11/25/18 at 08:00 Vitamin B Complex/ Vitamin C (Krista-Beatriz) 1 tab DAILY PO Last administered on at 08:04; Start 11/25/18 at 09:00 Lactobacillus Rhamnosus (Culturelle) 1 cap BID PO Last administered on at 08:04; Start 11/24/18 at 21:00 Pantoprazole Sodium (Protonix) 40 mg DAILYAC PO Last administered on at 08:03; Start 11/25/18 at 07:30 Insulin Human Lispro (HumaLOG) 0-5 UNITS TIDWMEALS SQ ; Start 11/24/18 at 21:00 ; Stop 11/24/18 at 21:57; Status DC Dextrose (Dextrose 50%-Water Syringe) 12.5 gm PRN Q15MIN PRN IV SEE COMMENTS; Start 11/24/18 at 20:45 Insulin Human Lispro (HumaLOG) 0-5 UNITS TIDWMEALS SQ ; Start 11/25/18 at 08:00 ; Stop 11/25/18 at 08:00; Status DC Insulin Human Lispro (HumaLOG) 0-5 UNITS BG 300-39... TIDWMEALS SQ ; Start at 08:00 Collagenase (Santyl) 1 judi DAILY TP Last administered on 11/26/18at 10:29; Start 11/25/18 at 10:00 Meropenem 500 mg/ Sodium Chloride 50 ml @ 100 mls/hr Q12HR IV ; Start at 21:00; Status UNV Daptomycin 690 mg/ Sodium Chloride 50 ml @ 100 mls/hr MoWeFr@1600 IV Last administered on 11/25/18at 19:21; Start 11/25/18 at 16:00 Heparin Sodium (Porcine) (Heparin Sodium) 5,000 unit Q12HR SQ Last administered on 11/26/18at 08:24; Start 11/25/18 at 21:00 Meropenem 500 mg/ Sodium Chloride 50 ml @ 100 mls/hr DAILY16 IV Last administered on 11/25/18at 21:20; Start 11/25/18 at 16:00 Linezolid (Zyvox) 600 mg BID PO Last administered on 11/26/18at 08:04; Start 11/25/18 at 11:00 Info (PHARMACY MONITORING -- do not chart) 1 each PRN DAILY PRN MC SEE COMMENTS ; Start 11/25/18 at 10:45 Sodium Chloride 1,000 ml @ 1,000 mls/hr Q1H PRN IV hypotension; Start at 14:30; Stop 11/25/18 at 20:30; Status DC Sodium Chloride 1,000 ml @ 400 mls/hr Q2H30M PRN IV PATENCY; Start 11/25/18 at 14:30; Stop 11/25/18 at 20:30; Status DC Info (PHARMACY MONITORING -- do not chart) 1 each PRN DAILY PRN MC SEE COMMENTS ; Start 11/25/18 at 14:45; Status UNV Info (PHARMACY MONITORING -- do not chart) 1 each PRN DAILY PRN MC SEE COMMENTS ; Start 11/25/18 at 14:45; Status UNV Active Scripts Active Hydrocodone-Apap 5-325 (Hydrocodone Bit/Acetaminophen) 1 Tab Tablet 1 Tab PO PRN Q4HRS PRN 30 Days Aspirin Ec (Aspirin) 81 Mg Tablet. 81 Mg PO DAILYWBKFT 30 Days [Pantoprazole] 40 MG Tablet. 40 Mg PO DAILYAC 30 Days Humalog (Insulin Lispro) 100 Unit/1 Ml Insuln.pen 0 Units SQ TIDWMEALS 30 Days BG 150-199= 1 units 200-299= 2 units 300-399= 4 units 400-499= 6 units ac tid sliding scale Prednisone (Prednisone) 10 Mg Tablet 10 Mg PO DAILY 4 Days Culturelle (Lactobacillus Rhamnosus Gg) 1 Each Cap.sprink 1 Cap PO BID 30 Days Tylenol (Acetaminophen) 325 Mg Tablet 325 Mg PO PRN Q4HRS PRN 30 Days Carvedilol (Carvedilol) 3.125 Mg Tablet 3.125 Mg PO BIDWMEALS 30 Days Renvela (Sevelamer Carbonate) 800 Mg Tablet 800 Mg PO TIDWMEALS 30 Days Pantoprazole Sodium 40 Mg Tablet. 40 Mg PO DAILYAC 30 Days Krista-Beatriz Tablet (Folic Acid/Vitamin B Comp W-C) 0.8 Mg Tablet 1 Tab PO DAILY 30 Days Reported Humalog (Insulin Lispro) 100 Unit/1 Ml Vial 1 Unit SQ TIDAC Vitamin B-12 (Cyanocobalamin (Vitamin B-12)) 1,000 Mcg Tablet 1 Tab PO DAILY Vitamin D3 (Cholecalciferol (Vitamin D3)) 1,000 Unit Tablet 1 Tab PO DAILY Allopurinol 100 Mg Tablet 1 Tab PO DAILY Renal Caps Softgel (Folic Acid/Vitamin B Comp W-C) 1 Mg Capsule 1 Cap PO DAILY Acidophilus Lactobacilli (Lactobacillus Acidophilus) 1 Each Capsule 1 Each PO BID Protonix (Pantoprazole Sodium) 20 Mg Tablet.dr 40 Mg PO DAILY Renvela (Sevelamer Carbonate) 800 Mg Tablet 800 Mg PO TIDWMEALS Lyrica (Pregabalin) 50 Mg Capsule 50 Mg PO HS Tylenol (Acetaminophen) 325 Mg Tablet 1 Tab PO PRN Q4HRS Hydrocodone-Apap 5-325 (Hydrocodone Bit/Acetaminophen) 1 Tab Tablet 1 Tab PO PRN Q4HRS PRN Aspirin 81 Mg Tab.chew 81 Mg PO DAILY Carvedilol (Carvedilol) 3.125 Mg Tablet 3.125 Mg PO BIDWMEALS Lipitor (Atorvastatin Calcium) 40 Mg Tablet 40 Mg PO HS Clopidogrel (Clopidogrel Bisulfate) 75 Mg Tablet 75 Mg PO DAILY Vitamin D (Cholecalciferol (Vitamin D3)) 2,000 Unit Capsule 1 Cap PO DAILY [place] 5-325 Tablet (Acetaminophen/Hydrocodone Bitart) 1 Each Tablet 1 Tab PO PRN Q4HRS PRN Lyrica (Pregabalin) 50 Mg Capsule 25 Mg PO HS Clopidogrel (Clopidogrel Bisulfate) 75 Mg Tablet 1 Tab PO DAILY Atorvastatin Calcium 40 Mg Tablet 40 Mg PO HS Allopurinol 100 Mg Tablet 1 Tab PO DAILY Vitamin B-12 (Cyanocobalamin (Vitamin B-12)) 1,000 Mcg Tablet 1 Tab PO DAILY Vitamin D-3 (Cholecalciferol (Vitamin D3)) 2,000 Unit Capsule 1,000 Unit PO DAILY Vitals/I & O Vital Sign - Last 24 Hours 11/25/18 11/25/18 11/25/18 11/25/18 11:00 19:00 19:20 20:19 Temp 98.8 98.0 98.8 98.0 Pulse 68 63 60 Resp 20 18 B/P (MAP) 96/33 (54) 125/35 (65) 108/60 Pulse Ox 100 97 O2 Delivery RA/2L Nasal Cannula Room Air O2 Flow Rate 2.0 11/25/18 11/25/18 11/25/18 11/26/18 21:21 22:22 22:42 03:00 Temp 98.4 98.5 98.4 98.5 Pulse 66 60 Resp 18 18 18 18 B/P (MAP) 121/30 (60) 131/53 (79) Pulse Ox 97 97 100 100 O2 Delivery Room Air Room Air Nasal Cannula O2 Flow Rate 3.0 3.0 2.0 11/26/18 11/26/18 11/26/18 11/26/18 07:00 08:00 08:03 08:03 Temp 98.2 98.2 Pulse 63 63 Resp 20 B/P (MAP) 130/62 (84) 130/62 Pulse Ox 100 O2 Delivery Nasal Cannula Nasal Cannula Room Air O2 Flow Rate 2.0 2.0 2.0 11/26/18 09:10 O2 Delivery Room Air Intake and Output 11/25/18 11/25/18 11/26/18 15:01 23:01 07:01 Intake Total 600 ml Output Total 0 ml Balance 600 ml 0 ml KIMI TIDWELL MD Nov 26, 2018 10:49
[2018-11-26] MEDS ORDERED: LINE600T PO (10:55)
--- NOTE | 2018-11-26 10:58 | DISCH ---
DISCHARGE DISCHARGE INFORMATION: DISCHARGE DATE: Nov 26, 2018 CONDITION ON DISCHARGE: Stable CODE STATUS: Code Status: Full FCI: SNF STAY <30 DAYS: Yes POST DISCHARGE ORDERS: DIET AFTER DISCHARGE: renal and ada diet WOUND/INCISION CARE: Other, see below (apply santyl to left foot wound daily. d /c wound vac. call [facility] wound care on wednesday to arrange out patient hyperbaric oxygen rx ) OTHER ORDERS: hemodialysis every -- FOLLOW-UP: PHYSICIAN FOLLOW-UP: vascular surgeon 11/30/18 as previously ordered ADDITIONAL FOLLOW-UP: cbc and sed reate and bmp every wednesday and fax results to dr. Talita trejo LAB ORDERS FOR FOLLOW-UP: cbc and bmp and sed rate every wednesday TREATMENT/EQUIPMENT ORDERS: Physical Therapy For: Evalulation/Treatment Occupational Therapy For: Evaluation/Treatment DISCHARGE MEDICATIONS: Home Meds Active Scripts Linezolid (ZYVOX) 600 Mg Tablet, 600 MG PO BID for osteomyelitis for 30 Days, # 60 TAB Prov:KIMI STREET MD 11/26/18 Hydrocodone Bit/Acetaminophen (HYDROCODONE-APAP 5-325 ) 1 Tab Tablet, 1 TAB PO PRN Q4HRS PRN for MODERATE - SEVERE PAIN for 30 Days, #30 TAB Prov:KIMI STREET MD 11/11/18 Aspirin (ASPIRIN EC) 81 Mg Tablet., 81 MG PO DAILYWBKFT for PAD for 30 Days, # 30 TAB.SR Prov:KIMI STREET MD 11/11/18 [Pantoprazole] 40 MG TABLET. No Conflict Check, 40 MG PO DAILYAC for gerd for 30 Days Prov:KIMI STREET MD 11/11/18 Insulin Lispro (HUMALOG) 100 Unit/1 Ml Insuln.pen, 0 UNITS SQ TIDWMEALS for diabetes for 30 Days, EACH BG 150-199= 1 units 200-299= 2 units 300-399= 4 units 400-499= 6 units ac tid sliding scale Prov:KIMI STREET MD 11/11/18 Prednisone (PREDNISONE ) 10 Mg Tablet, 10 MG PO DAILY for gout synovitis for 4 Days, #4 TAB Prov:KIMI STREET MD 11/11/18 Lactobacillus Rhamnosus Gg (CULTURELLE) 1 Each Cap.sprink, 1 CAP PO BID for probiotic for 30 Days, #60 CAP Prov:KIMI STREET MD 11/11/18 Acetaminophen (TYLENOL) 325 Mg Tablet, 325 MG PO PRN Q4HRS PRN for MILD PAIN / TEMP for 30 Days, TAB Prov:KIMI STREET MD 08/19/18 Carvedilol (CARVEDILOL ) 3.125 Mg Tablet, 3.125 MG PO BIDWMEALS for 30 Days, # 60 TAB Prov:KIMI STREET MD 01/15/18 Sevelamer Carbonate (RENVELA) 800 Mg Tablet, 800 MG PO TIDWMEALS for 30 Days, # 90 TAB Prov:KIMI STREET MD 09/26/17 Pantoprazole Sodium (PANTOPRAZOLE SODIUM) 40 Mg Tablet.dr, 40 MG PO DAILYAC for 30 Days, #30 TAB.SR Prov:KIMI STREET MD 09/26/17 Folic Acid/Vitamin B Comp W-C (HARPREET-MORA TABLET) 0.8 Mg Tablet, 1 TAB PO DAILY for 30 Days, #30 TAB Prov:KIMI STREET MD 09/26/17 Reported Medications Insulin Lispro (HUMALOG) 100 Unit/1 Ml Vial, 1 UNIT SQ TIDAC for sliding scale, VIAL 11/24/18 Cyanocobalamin (Vitamin B-12) (VITAMIN B-12) 1,000 Mcg Tablet, 1 TAB PO DAILY for supplement, #30 TAB 2 Refills 11/24/18 Cholecalciferol (Vitamin D3) (VITAMIN D3) 1,000 Unit Tablet, 1 TAB PO DAILY for supplement, #90 TAB 3 Refills 11/24/18 Allopurinol (ALLOPURINOL) 100 Mg Tablet, 1 TAB PO DAILY for gout, #90 TAB 3 Refills 11/24/18 Folic Acid/Vitamin B Comp W-C (RENAL CAPS SOFTGEL) 1 Mg Capsule, 1 CAP PO DAILY for renal vitamin, #90 CAP 3 Refills 11/24/18 Lactobacillus Acidophilus (Acidophilus Lactobacilli) 1 Each Capsule, 1 EACH PO BID for prophylaxis, CAP 11/24/18 Pantoprazole Sodium (PROTONIX) 20 Mg Tablet.dr, 40 MG PO DAILY for GERD, TAB 11/24/18 Sevelamer Carbonate (RENVELA) 800 Mg Tablet, 800 MG PO TIDWMEALS for ESRD, TAB 11/24/18 Pregabalin (LYRICA) 50 Mg Capsule, 50 MG PO HS for neuropathy, CAP 11/24/18 Acetaminophen (TYLENOL) 325 Mg Tablet, 1 TAB PO PRN Q4HRS for pain/temp, #30 TAB 11/24/18 Hydrocodone Bit/Acetaminophen (HYDROCODONE-APAP 5-325 ) 1 Tab Tablet, 1 TAB PO PRN Q4HRS PRN for PAIN, TAB 0 Refills 11/24/18 Aspirin (ASPIRIN) 81 Mg Tab.chew, 81 MG PO DAILY for prophylaxis, TAB.CHEW 11/24/18 Carvedilol (CARVEDILOL ) 3.125 Mg Tablet, 3.125 MG PO BIDWMEALS for CARDIAC, TAB 11/24/18 Atorvastatin Calcium (LIPITOR) 40 Mg Tablet, 40 MG PO HS for FOR CHOLESTEROL, # 30 TAB 0 Refills 11/24/18 Clopidogrel Bisulfate (CLOPIDOGREL) 75 Mg Tablet, 75 MG PO DAILY for TO PREVENT BLOOD CLOTS, #30 TAB 0 Refills 11/24/18 Cholecalciferol (Vitamin D3) (VITAMIN D) 2,000 Unit Capsule, 1 CAP PO DAILY for per Dr. Street's H&P, #30 CAP 3 Refills 11/01/18 Hydrocodone/Apap 5-325 (NORCO 5-325 TABLET) 1 Each Tablet, 1 TAB PO PRN Q4HRS PRN for PAIN, TAB 0 Refills 11/01/18 Pregabalin (LYRICA) 50 Mg Capsule, 25 MG PO HS for per Dr. street's H&P, CAP 11/01/18 Clopidogrel Bisulfate (CLOPIDOGREL) 75 Mg Tablet, 1 TAB PO DAILY for per Dr. street's H&P, #90 TAB 1 Refill 11/01/18 Atorvastatin Calcium (ATORVASTATIN CALCIUM) 40 Mg Tablet, 40 MG PO HS for FOR CHOLESTEROL, #30 TAB 0 Refills 10/12/18 Allopurinol (ALLOPURINOL) 100 Mg Tablet, 1 TAB PO DAILY, #30 TAB 5 Refills 09/13/17 Cyanocobalamin (Vitamin B-12) (VITAMIN B-12) 1,000 Mcg Tablet, 1 TAB PO DAILY, # 30 TAB 2 Refills 09/13/17 Cholecalciferol (Vitamin D3) (VITAMIN D-3) 2,000 Unit Capsule, 1000 UNIT PO DAILY, CAP 09/13/[address] MD Nov 26, 2018 10:58
[2018-11-26 11:00] VITALS: BP 142/40
--- NOTE | 2018-11-26 11:08 | PDOC ---
Provider Note Provider Note discharge summary dictated # [id number] KIMI TIDWELL MD Nov 26, 2018 11:08
--- NOTE | 2018-11-26 13:26 | PDOC ---
Infectious Disease Note Subjective Subjective Comfortable, denies pain Hoping to return to [facility] soon + loose stools Denies N/V/bloating/F/C/S ROS ROS per HPI otherwise neg Vital Sign Vital Signs Vital Signs Date Time Temp Pulse Resp B/P (MAP) Pulse Ox O2 Delivery O2 Flow Rate FiO2 11/26/18 11:00 98.1 59 20 142/40 (74) 100 Nasal Cannula 2.0 98.1 Physical Exam PHYSICAL EXAM GENERAL:Sitting in the chair, alert, NAD HEENT: Oral cavity clear NECK: Supple. LUNGS: Clear HEART: S1, S2 ABDOMEN: Soft, NT, BS present EXTREMITIES: Trace edema; right 1st toe amp site, w/ some necrotic tissue. Lateral ankle wound granulating. NEUROLOGIC: Alert, responds appropriately SKIN: No rash Right SCL (11/10) clean Labs Lab Laboratory Tests Test 11/25/18 20:36 11/26/18 07:36 11/26/18 11:38 Glucose (Fingerstick) 80 mg/dL (70-99) 103 mg/dL (70-99) 104 mg/dL (70-99) Objective Assessment Recent 1 st toe amp with developing gangrene, s/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 (h/o MSSA, Enterobacter and VRE). ESR 90 - wound is very clean Right lateral malleolus wound s/p sharp excisional debridement removing necrotic subcutaneous tissue, 11/02. -11/02. Enterobacter aerogenes, Cipro sensitive, VRE (linezolid sensitive, Amp sens not available, dapto sensitive) and Gram variable nuria id still pending PAD s/p angio 11/03. ESRD/HD Diarrhea/loose stools Thrombocytopenia Plan Plan of Care Discharging to [facility] when can be arranged Continue Dapto and meropenem Every Wednesday CBC, ESR, CPK. Fax results to [phone] f/u appt with us in 1-2 weeks f/u with vascular as directed HBO therapy d/w nursing Attending Co-Sign Attending Co-Sign The patient was seen and interviewed as well as examined at the bedside. The chart was reviewed. The case was discussed. Agree with the plan of care. SHAVON KNAPP APRN Nov 26, 2018 13:26 JAYY SUÁREZ MD Nov 26, 2018 17:00
[2018-11-26 14:55] VITALS: BP 136/60
--- NOTE | 2018-11-26 15:09 | PDOC ---
SUBJECTIVE ROS Were asked to see this gentleman for his ESRD needs He appears to be doing well today and wants to go home. CVS: no Orthopnea, no CP RESP: no SOB, no HUGGINS GI: no Nausea, no Vomiting : no Dysuria, no Urgency OBJECTIVE Vital Signs Vital Signs Date Time Temp Pulse Resp B/P (MAP) Pulse Ox O2 Delivery O2 Flow Rate FiO2 11/26/18 14:55 98.9 66 136/60 (85) 100 Nasal Cannula 2.0 98.9 11/26/18 11:00 20 I & 0 Intake and Output 11/26/18 07:01 Intake Total 600 ml Output Total 0 ml Balance 600 ml Intake Oral 600 ml Output Urine Total 0 ml # Voids 1 # Bowel Movements 1 PHYSICAL EXAM Physical Exam GEN: Awake, Oriented x 3, In no distress EYES: Vision Unchanged, Conjunctiva Normal EN: No EN Drainage, Mucous Membranes moist NECK: no JVD, no JVP, Supple, no Thyromegaly; short thick CVS: S1S2, no Murmur, No Gallop, No Rub,no Edema RESP: no Rales, no Rhonchi,no Acc. Muscle Use GI: BS + ve, NO Bruit, Non Tender, Non Distended : no CVA tenderness, no Suprapubic Tenderness DIAGNOSIS/ASSESSMENT Assessment & Plan ESRD: Current fluid and E-lyte status does not necessitate emergent need for dialysis. Will re-evaluate for dialysis in the am and continue on Wednesday schedule. Hyperkalemia from yesterday: I anticipate this to have resolved after dialysis as done yesterday. We'll recheck labs ANEMIA; Aranap as ordered, Transfuse with next HD as needed HTN: Current BP meds as reviewed. See orders for changes. BONE & MINERAL: Follow phosphorus levels and alter binder regimen as needed. Right foot wound: Antibiotics as an outpatient are being set up. We'll attempt to coordinate this with dialysis as an outpatient Discussed Plan of Care with family at bedside over the phone COMMENT/RELEVANT DATA Meds Current Medications Medications (Trade) Dose Ordered Sig/Bhavesh Start Time Stop Time Status Last Admin Dose Admin Acetaminophen (Tylenol) 325 mg PRN Q4HRS PRN 11/24/18 20:30 Acetaminophen/ Hydrocodone Bitart (Lortab 5/325) 1 tab PRN Q4HRS PRN 11/24/18 20:30 11/26/18 14:05 1 TAB Allopurinol (Zyloprim) 100 mg DAILY 11/25/18 09:00 11/26/18 08:04 100 MG Aspirin (Children'S Aspirin) 81 mg DAILY 11/25/18 09:00 11/26/18 08:04 81 MG Atorvastatin Calcium (Lipitor) 40 mg HS 11/24/18 21:00 11/25/18 21:22 40 MG Carvedilol (Coreg) 3.125 mg BIDWMEALS 11/24/18 21:00 11/26/18 08:03 3.125 MG Clopidogrel Bisulfate (Plavix) 75 mg DAILY 11/25/18 09:00 11/26/18 08:04 75 MG Collagenase (Santyl) 1 judi DAILY 11/25/18 10:00 11/26/18 10:29 1 JUDI Cyanocobalamin (Vitamin B-12) 1,000 mcg DAILY 11/25/18 09:00 11/26/18 08:04 1,000 MCG Daptomycin 690 mg/ Sodium Chloride 50 ml @ 100 mls/hr MoWeFr@1600 11/25/18 16:00 11/25/18 19:21 100 MLS/HR Dextrose (Dextrose 50%-Water Syringe) 12.5 gm PRN Q15MIN PRN 11/24/18 20:45 Heparin Sodium (Porcine) (Heparin Sodium) 5,000 unit Q12HR 11/25/18 21:00 11/26/18 08:24 5,000 UNIT Info (PHARMACY MONITORING -- do not chart) 1 each PRN DAILY PRN 11/25/18 14:45 UNV Insulin Human Lispro (HumaLOG) 0-5 UNITS BG 300-39... TIDWMEALS 11/25/18 08:00 Lactobacillus Rhamnosus (Culturelle) 1 cap BID 11/24/18 21:00 11/26/18 08:04 1 CAP Linezolid (Zyvox) 600 mg BID 11/25/18 11:00 11/26/18 08:04 600 MG Meropenem 500 mg/ Sodium Chloride 50 ml @ 100 mls/hr DAILY16 11/25/18 16:00 11/25/18 21:20 100 MLS/HR Pantoprazole Sodium (Protonix) 40 mg DAILYAC 11/25/18 07:30 11/26/18 08:03 40 MG Pregabalin (Lyrica) 50 mg HS 11/24/18 21:00 11/25/18 21:22 50 MG Sevelamer Carbonate (Renvela) 800 mg TIDWMEALS 11/25/18 08:00 11/26/18 11:52 800 MG Sodium Chloride 1,000 ml @ 400 mls/hr Q2H30M PRN 11/25/18 14:30 11/25/18 20:30 DC Vitamin B Complex/ Vitamin C (Krista-Beatriz) 1 tab DAILY 11/25/18 09:00 11/26/18 08:04 1 TAB Vitamin D (Vitamin D3) 1,000 unit DAILY 11/25/18 09:00 11/26/18 08:04 1,000 UNIT Lab Laboratory Tests Test 11/25/18 20:36 11/26/18 07:36 11/26/18 11:38 Glucose (Fingerstick) 80 mg/dL (70-99) 103 mg/dL (70-99) 104 mg/dL (70-99) Results All relevant outside records, renal labs, imaging studies, telemetry/EKG's were reviewed. JANAE MONTAGUE MD Nov 26, 2018 15:09
[2018-11-26] MEDS: MEROPENEM 500 MG in IV NORMAL SALINE 50ML 50 ML IV SCH (16:47)
--- NOTE | 2018-11-26 17:32 | NUR ---
Patient was not discharged due to patient needing to be set up with daptomycin during dialysis days and needing approval from insurance. Spoke to Dr. Street about situation, Dr. Street stated we had been through the process before and it was not approved due to daptomycin being too expensive and [facility] not accepting. Dr. Street asked to make Dr. Prado. Dr. Prado rounded on patient and was made aware of the daptomycin situation. Dr. Prado stated we will have to find another antibiotic for patient, however, he did not want patient going anywhere today. Will continue to monitor patient.
[2018-11-26 19:00] VITALS: BP 111/46
[2018-11-26] MEDS: PREGABALIN 50 MG CAPSULE PO SCH (21:09)
[2018-11-26] MEDS: ATORVASTATIN CALCIUM 40 MG TABLET. PO SCH (21:09)
--- NOTE | 2018-11-26 21:26 | DS ---
DATE OF DISCHARGE: 11/26/2018 CONSULTANTS: Dr. Wilson, Dr. Alex Muir, and Dr. Bear. FINAL DIAGNOSES: 1. Necrotic right foot wound. 2. Osteomyelitis of the right great toe and right first metatarsal. 3. Right ankle wound with granulation tissue. 4. Severe peripheral arterial disease to right lower extremity involving the tibial and pedal arteries. 5. End-stage renal disease on hemodialysis Mondays, Wednesdays and Fridays. 6. Diabetes mellitus type 2 with peripheral neuropathy. 7. Morbid obesity. 8. Debility. HOSPITAL COURSE: The patient is a 77-year-old morbidly obese -[place] male who has diabetes mellitus type 2 and peripheral arterial disease, end-stage renal disease, on hemodialysis Mondays, Wednesdays and Fridays with a history of a necrotic right great toe wound following a partial amputation of the right great toe. He had further amputation of the right great toe and the first metatarsal, right foot and was noted to have osteomyelitis of the right great toe and first metatarsal treated with IV daptomycin and oral Zyvox in a long-term facility with a wound VAC. The patient was seen by Dr. Ashley Muir for Infectious Disease in the office on 11/25/2018 and noted the foot wound looked worse with more necrosis, prompting admission to the [facility]. Her IV daptomycin and oral Zyvox were continued and the patient was seen by Dr. Wilson for Vascular Surgery in consultation who recommended discontinuing the wound VAC and to apply Santyl ointment to once a day to the right foot wound and recommended hyperbaric oxygen treatment, which needs to be done as an outpatient. The patient was seen by Dr. Alex Muir for Infectious Disease and also by Dr. Bear for Nephrology and he was dialyzed yesterday. The patient will be dismissed back to the long-term facility hopefully later today where hyperbaric oxygen treatment will be arranged as an outpatient and he will continue with the Zyvox 600 mg b.i.d. for 4 weeks and meropenem 500 mg IV every 24 hours at 4:00 p.m. for another 4 weeks and hydrocodone 5/325 mg one every 4 hours p.r.n. He will also be dismissed on Tylenol 325 mg every 4 hours, allopurinol 100 mg every day, aspirin 81 mg every day, atorvastatin 40 mg at bedtime, carvedilol 3.125 mg b.i.d., vitamin D 2000 units every day, Plavix 75 mg every day, Santyl apply daily to his right foot wound, vitamin B12 1000 mcg every day, as mentioned, meropenem 500 mg IV every day at 4:00 p.m., Nephro-Beatriz 1 every day, Amberg 5/325 one every 4 hours p.r.n., Humalog insulin sliding scale before meals t.i.d., lactobacilli 1 b.i.d., Zyvox 600 mg b.i.d. for 4 weeks. He is on meropenem 500 mg IV daily. He also be dismissed on Protonix 40 mg every day, Lyrica 50 mg at bedtime, Renvela 800 mg t.i.d. with meals. So it will not be daptomycin, he will be dismissed on Zyvox 600 mg b.i.d. for 4 weeks and meropenem 500 mg IV daily for 4 weeks and have a followup visit to see the vascular surgeon on November 30. KIMI TIDWELL MD DR: LOBO/dianna JOB#: [id number] / [id number]
[2018-11-26 23:00] VITALS: BP_SYST 119; BP_SYST 128; BP_DIAS 52; BP_DIAS 67
[2018-11-27] MEDS: ONDANSETRON ODT 4 MG TAB.RAPDIS. PO PRN ×2 (02:35→08:40)
[2018-11-27 03:00] VITALS: BP 117/49
[2018-11-27 07:00] VITALS: BP 123/49
[2018-11-27] MEDS: INSULIN LISPRO 300 UNITS/3 ML INSULN.PEN. SQ SCH ×3 (07:55→17:00)
[2018-11-27] MEDS: ASPIRIN CHEWABLE 81 MG TABLET. PO SCH (08:38)
[2018-11-27] MEDS: LINEZOLID 600 MG TABLET PO SCH ×2 (08:39→20:22)
[2018-11-27] MEDS: PANTOPRAZOLE 40 MG TABLET.DR. PO SCH (08:39)
[2018-11-27] MEDS: LACTOBACILLUS RHAMNOSUS GG 1 CAPSULE. PO SCH ×2 (08:39→20:21)
[2018-11-27] MEDS: FOLIC/VIT B COMP W-C (RENAL) TABLET. PO SCH (08:39)
[2018-11-27] MEDS: CARVEDILOL 3.125 MG TABLET. PO SCH ×2 (08:39→17:18)
[2018-11-27] MEDS: CYANOCOBALAMIN (VITAMIN B-12) 1,000 MCG TABLET. PO SCH (08:39)
[2018-11-27] MEDS: CHOLECALCIFEROL (VITAMIN D3) 1,000 UNIT TABLET PO SCH (08:39)
[2018-11-27] MEDS: CLOPIDOGREL BISULFATE 75 MG TABLET PO SCH (08:39)
[2018-11-27] MEDS: SEVELAMER CARBONATE 800 MG TABLET. PO SCH ×3 (08:39→17:17)
[2018-11-27] MEDS: ALLOPURINOL 100 MG TABLET. PO SCH (08:39)
[2018-11-27] MEDS: HYDROcodone/APAP 5/325MG 1 TAB TABLET PO PRN ×3 (08:40→20:21)
[2018-11-27] MEDS: HEPARIN for SUB-Q USE 5,000 UNIT/ML VIAL. SQ SCH ×2 (08:41→20:28)
--- NOTE | 2018-11-27 09:52 | PDOC ---
PROGRESS NOTES Subjective Subjective nausea resolved last night with zofran. had a soft stool. feels okay now. SNF will not cover daptomycin . currently receiving daptomycin and meropenem. was taking zyvox and metopenem piror to admission. Objective Objective Vital Signs Date Time Temp Pulse Resp B/P (MAP) Pulse Ox O2 Delivery O2 Flow Rate FiO2 11/27/18 08:40 Room Air 11/27/18 08:39 61 123/49 11/27/18 07:55 2.0 11/27/18 07:00 97.8 20 97 97.8 Intake and Output 11/27/18 07:01 Intake Total 1305 ml Output Total 600 ml Balance 705 ml Intake Oral 1230 ml IV Total 75 ml Output Urine Total 600 ml Physical Exam Abdomen: Soft Heart: Regular rate, Normal S1, Normal S2 Extremities: No edema, Other (dressing right foot. left great toe amputation) General: Alert HEENT: Atraumatic Lungs: Clear to auscultation Neuro: Normal speech Psych/Mental Status: Mental status NL Skin: No rashes Assessment Assessment necrotic right foot wound osteomyelitis of right great toe and first metatarsal right ankle wound with granulation tissue severe PAD RLE involving tibial and pedal vessels ESRD on hemodialysis m-w-f diabetes mellitus type 2 with peripheral neuropathy morbid obesity debility Plan Plan of Care antibiotics per ID wound care hemodialysis tomorrow anticipate dismissal to SNF tomorrow after hemodialysis Comment Review of Relevant I have reviewed the following items simeon (where applicable) has been applied. Labs Laboratory Tests Test 11/25/18 10:48 11/25/18 20:36 11/26/18 07:36 11/26/18 11:38 Glucose (Fingerstick) 101 mg/dL (70-99) 80 mg/dL (70-99) 103 mg/dL (70-99) 104 mg/dL (70-99) Test 11/26/18 16:39 11/26/18 19:27 11/26/18 21:22 11/27/18 07:11 Glucose (Fingerstick) 111 mg/dL (70-99) 85 mg/dL (70-99) 102 mg/dL (70-99) 76 mg/dL (70-99) Laboratory Tests Test 11/26/18 11:38 11/26/18 16:39 11/26/18 19:27 11/26/18 21:22 Glucose (Fingerstick) 104 mg/dL (70-99) 111 mg/dL (70-99) 85 mg/dL (70-99) 102 mg/dL (70-99) Test 11/27/18 07:11 Glucose (Fingerstick) 76 mg/dL (70-99) Medications Current Medications Acetaminophen (Tylenol) 325 mg PRN Q4HRS PRN PO MILD PAIN / TEMP; Start at 20:30 Allopurinol (Zyloprim) 100 mg DAILY PO Last administered on 11/27/18 08:39; Start 11/25/18 at 09:00 Aspirin (Children'S Aspirin) 81 mg DAILY PO Last administered on 11/27/18 08: 38; Start 11/25/18 at 09:00 Atorvastatin Calcium (Lipitor) 40 mg HS PO Last administered on 11/26/18 21: 09; Start 11/24/18 at 21:00 Carvedilol (Coreg) 3.125 mg BIDWMEALS PO Last administered on 11/27/18 08:39 ; Start 11/24/18 at 21:00 Vitamin D (Vitamin D3) 1,000 unit DAILY PO Last administered on 11/27/18 08: 39; Start 11/25/18 at 09:00 Clopidogrel Bisulfate (Plavix) 75 mg DAILY PO Last administered on 11/27/18 08:39; Start 11/25/18 at 09:00 Cyanocobalamin (Vitamin B-12) 1,000 mcg DAILY PO Last administered on 08:39; Start 11/25/18 at 09:00 Acetaminophen/ Hydrocodone Bitart (Lortab 5/325) 1 tab PRN Q4HRS PRN PO MODERATE - SEVERE PAIN Last administered on 11/27/18 08:40; Start 11/24/18 at 20:30 Pregabalin (Lyrica) 50 mg HS PO Last administered on 11/26/18 21:09; Start 11/24/18 at 21:00 Sevelamer Carbonate (Renvela) 800 mg TIDWMEALS PO Last administered on 08:39; Start 11/25/18 at 08:00 Vitamin B Complex/ Vitamin C (Krista-Beatriz) 1 tab DAILY PO Last administered on at 08:39; Start 11/25/18 at 09:00 Lactobacillus Rhamnosus (Culturelle) 1 cap BID PO Last administered on at 08:39; Start 11/24/18 at 21:00 Pantoprazole Sodium (Protonix) 40 mg DAILYAC PO Last administered on at 08:39; Start 11/25/18 at 07:30 Insulin Human Lispro (HumaLOG) 0-5 UNITS TIDWMEALS SQ ; Start 11/24/18 at 21:00 ; Stop 11/24/18 at 21:57; Status DC Dextrose (Dextrose 50%-Water Syringe) 12.5 gm PRN Q15MIN PRN IV SEE COMMENTS; Start 11/24/18 at 20:45 Insulin Human Lispro (HumaLOG) 0-5 UNITS TIDWMEALS SQ ; Start 11/25/18 at 08:00 ; Stop 11/25/18 at 08:00; Status DC Insulin Human Lispro (HumaLOG) 0-5 UNITS BG 300-39... TIDWMEALS SQ ; Start at 08:00 Collagenase (Santyl) 1 jdui DAILY TP Last administered on 11/26/18at 10:29; Start 11/25/18 at 10:00 Meropenem 500 mg/ Sodium Chloride 50 ml @ 100 mls/hr Q12HR IV ; Start at 21:00; Status UNV Daptomycin 690 mg/ Sodium Chloride 50 ml @ 100 mls/hr MoWeFr@1600 IV Last administered on 11/25/18at 19:21; Start 11/25/18 at 16:00 Heparin Sodium (Porcine) (Heparin Sodium) 5,000 unit Q12HR SQ Last administered on 11/27/18at 08:41; Start 11/25/18 at 21:00 Meropenem 500 mg/ Sodium Chloride 50 ml @ 100 mls/hr DAILY16 IV Last administered on 11/26/18at 16:47; Start 11/25/18 at 16:00 Linezolid (Zyvox) 600 mg BID PO Last administered on 11/27/18at 08:39; Start 11/25/18 at 11:00 Info (PHARMACY MONITORING -- do not chart) 1 each PRN DAILY PRN MC SEE COMMENTS ; Start 11/25/18 at 10:45 Sodium Chloride 1,000 ml @ 1,000 mls/hr Q1H PRN IV hypotension; Start at 14:30; Stop 11/25/18 at 20:30; Status DC Sodium Chloride 1,000 ml @ 400 mls/hr Q2H30M PRN IV PATENCY; Start 11/25/18 at 14:30; Stop 11/25/18 at 20:30; Status DC Info (PHARMACY MONITORING -- do not chart) 1 each PRN DAILY PRN MC SEE COMMENTS ; Start 11/25/18 at 14:45; Status UNV Info (PHARMACY MONITORING -- do not chart) 1 each PRN DAILY PRN MC SEE COMMENTS ; Start 11/25/18 at 14:45; Status UNV Ondansetron HCl (Zofran Odt) 4 mg PRN Q6HRS PRN PO NAUSEA/VOMITING Last administered on 11/27/18at 08:40; Start 11/27/18 at 02:15 Active Scripts Active Zyvox (Linezolid) 600 Mg Tablet 600 Mg PO BID 30 Days Hydrocodone-Apap 5-325 (Hydrocodone Bit/Acetaminophen) 1 Tab Tablet 1 Tab PO PRN Q4HRS PRN 30 Days Aspirin Ec (Aspirin) 81 Mg Tablet. 81 Mg PO DAILYWBKFT 30 Days [Pantoprazole] 40 MG Tablet.dr 40 Mg PO DAILYAC 30 Days Humalog (Insulin Lispro) 100 Unit/1 Ml Insuln.pen 0 Units SQ TIDWMEALS 30 Days BG 150-199= 1 units 200-299= 2 units 300-399= 4 units 400-499= 6 units ac tid sliding scale Culturelle (Lactobacillus Rhamnosus Gg) 1 Each Cap.sprink 1 Cap PO BID 30 Days Tylenol (Acetaminophen) 325 Mg Tablet 325 Mg PO PRN Q4HRS PRN 30 Days Carvedilol (Carvedilol) 3.125 Mg Tablet 3.125 Mg PO BIDWMEALS 30 Days Renvela (Sevelamer Carbonate) 800 Mg Tablet 800 Mg PO TIDWMEALS 30 Days Pantoprazole Sodium 40 Mg Tablet. 40 Mg PO DAILYAC 30 Days Krista-Beatriz Tablet (Folic Acid/Vitamin B Comp W-C) 0.8 Mg Tablet 1 Tab PO DAILY 30 Days Reported Vitamin B-12 (Cyanocobalamin (Vitamin B-12)) 1,000 Mcg Tablet 1 Tab PO DAILY Allopurinol 100 Mg Tablet 1 Tab PO DAILY Renal Caps Softgel (Folic Acid/Vitamin B Comp W-C) 1 Mg Capsule 1 Cap PO DAILY Acidophilus Lactobacilli (Lactobacillus Acidophilus) 1 Each Capsule 1 Each PO BID Protonix (Pantoprazole Sodium) 20 Mg Tablet.dr 40 Mg PO DAILY Renvela (Sevelamer Carbonate) 800 Mg Tablet 800 Mg PO TIDWMEALS Lyrica (Pregabalin) 50 Mg Capsule 50 Mg PO HS Tylenol (Acetaminophen) 325 Mg Tablet 1 Tab PO PRN Q4HRS Hydrocodone-Apap 5-325 (Hydrocodone Bit/Acetaminophen) 1 Tab Tablet 1 Tab PO PRN Q4HRS PRN Aspirin 81 Mg Tab.chew 81 Mg PO DAILY Carvedilol (Carvedilol) 3.125 Mg Tablet 3.125 Mg PO BIDWMEALS Lipitor (Atorvastatin Calcium) 40 Mg Tablet 40 Mg PO HS Clopidogrel (Clopidogrel Bisulfate) 75 Mg Tablet 75 Mg PO DAILY Vitamin D (Cholecalciferol (Vitamin D3)) 2,000 Unit Capsule 1 Cap PO DAILY [place] 5-325 Tablet (Acetaminophen/Hydrocodone Bitart) 1 Each Tablet 1 Tab PO PRN Q4HRS PRN Lyrica (Pregabalin) 50 Mg Capsule 25 Mg PO HS Clopidogrel (Clopidogrel Bisulfate) 75 Mg Tablet 1 Tab PO DAILY Atorvastatin Calcium 40 Mg Tablet 40 Mg PO HS Allopurinol 100 Mg Tablet 1 Tab PO DAILY Vitamin B-12 (Cyanocobalamin (Vitamin B-12)) 1,000 Mcg Tablet 1 Tab PO DAILY Vitamin D-3 (Cholecalciferol (Vitamin D3)) 2,000 Unit Capsule 1,000 Unit PO DAILY Vitals/I & O Vital Sign - Last 24 Hours 11/26/18 11/26/18 11/26/18 11/26/18 11:00 14:05 14:55 16:47 Temp 98.1 98.9 98.1 98.9 Pulse 59 66 60 Resp 20 B/P (MAP) 142/40 (74) 136/60 (85) 126/57 Pulse Ox 100 100 O2 Delivery Nasal Cannula Room Air Nasal Cannula O2 Flow Rate 2.0 2.0 11/26/18 11/26/18 11/26/1829/18 19:00 19:38 20:00 20:40 Temp 98.4 98.4 Pulse 76 Resp 17 B/P (MAP) 111/46 (67) Pulse Ox 90 100 100 O2 Delivery Nasal Cannula Room Air Nasal Cannula Nasal Cannula O2 Flow Rate 2.0 2.0 2.0 11/26/18 11/27/18 11/27/18 11/27/18 23:00 03:00 07:00 07:55 Temp 98.0 98.1 97.8 98.0 98.1 97.8 Pulse 59 57 61 Resp 16 16 20 B/P (MAP) 119/52 (74) 117/49 (71) 123/49 (73) Pulse Ox 93 94 97 O2 Delivery Room Air Room Air Room Air Nasal Cannula O2 Flow Rate 2.0 11/27/18 11/27/18 08:39 08:40 Pulse 61 B/P (MAP) 123/49 O2 Delivery Room Air Intake and Output 11/26/18 11/26/18 11/27/18 15:01 23:01 07:01 Intake Total 480 ml 825 ml Output Total 600 ml 0 ml Balance 480 ml 225 ml 0 ml KIMI TIDWELL MD Nov 27, 2018 09:52
[2018-11-27 10:39] VITALS: BP 125/50
[2018-11-27] MEDS: COLLAGENASE 250 UNIT/GM TOPICAL OINTMENT 30GM TUBE. TP SCH (12:11)
[2018-11-27] MEDS ORDERED: MAGNESIUM SULFATE 2GM 50 ML IV PRN (14:00)
--- NOTE | 2018-11-27 14:00 | PDOC ---
SUBJECTIVE ROS F/up for ESRD on HD Doing well overall. Waiting on Daptomycin approval as OP to be given on HD CVS: no Orthopnea, no CP RESP: no SOB, no HUGGINS GI: no Nausea, no Vomiting : no Dysuria, no Urgency OBJECTIVE Vital Signs Vital Signs Date Time Temp Pulse Resp B/P (MAP) Pulse Ox O2 Delivery O2 Flow Rate FiO2 11/27/18 13:29 Room Air 11/27/18 10:39 97.9 60 20 125/50 (75) 96 97.9 11/27/18 07:55 2.0 I & 0 Intake and Output 11/27/18 07:01 Intake Total 1305 ml Output Total 600 ml Balance 705 ml Intake Oral 1230 ml IV Total 75 ml Output Urine Total 600 ml PHYSICAL EXAM Physical Exam GEN: Awake, Oriented x 3, In no distress EYES: Vision Unchanged, Conjunctiva Normal EN: No EN Drainage, Mucous Membranes moist NECK: no JVD, no JVP, Supple, no Thyromegaly; short thick CVS: S1S2, no Murmur, No Gallop, No Rub,no Edema RESP: no Rales, no Rhonchi,no Acc. Muscle Use GI: BS + ve, NO Bruit, Non Tender, Non Distended : no CVA tenderness, no Suprapubic Tenderness DIAGNOSIS/ASSESSMENT Assessment & Plan ESRD: Current fluid and E-lyte status does not necessitate emergent need for dialysis. Will re-evaluate for dialysis in the am and continue on Wednesday schedule. Hyperkalemia from yesterday: I anticipate this to have resolved after dialysis as done . We'll recheck labs ANEMIA; Aranesp as ordered, Transfuse with next HD as needed HTN: Current BP meds as reviewed. See orders for changes. BONE & MINERAL: Follow phosphorus levels and alter binder regimen as needed. Right foot wound: Antibiotics as an outpatient are being set up. We'll attempt to coordinate this with dialysis as an outpatient if possible Discussed Plan of Care with family at bedside over the phone COMMENT/RELEVANT DATA Meds Current Medications Medications (Trade) Dose Ordered Sig/Bhavesh Start Time Stop Time Status Last Admin Dose Admin Acetaminophen (Tylenol) 325 mg PRN Q4HRS PRN 11/24/18 20:30 Acetaminophen/ Hydrocodone Bitart (Lortab 5/325) 1 tab PRN Q4HRS PRN 11/24/18 20:30 11/27/18 13:29 1 TAB Allopurinol (Zyloprim) 100 mg DAILY 11/25/18 09:00 11/27/18 08:39 100 MG Aspirin (Children'S Aspirin) 81 mg DAILY 11/25/18 09:00 11/27/18 08:38 81 MG Atorvastatin Calcium (Lipitor) 40 mg HS 11/24/18 21:00 11/26/18 21:09 40 MG Carvedilol (Coreg) 3.125 mg BIDWMEALS 11/24/18 21:00 11/27/18 08:39 3.125 MG Clopidogrel Bisulfate (Plavix) 75 mg DAILY 11/25/18 09:00 11/27/18 08:39 75 MG Collagenase (Santyl) 1 judi DAILY 11/25/18 10:00 11/27/18 12:11 1 JUDI Cyanocobalamin (Vitamin B-12) 1,000 mcg DAILY 11/25/18 09:00 11/27/18 08:39 1,000 MCG Daptomycin 690 mg/ Sodium Chloride 50 ml @ 100 mls/hr MoWeFr@1600 11/25/18 16:00 11/25/18 19:21 100 MLS/HR Dextrose (Dextrose 50%-Water Syringe) 12.5 gm PRN Q15MIN PRN 11/24/18 20:45 Heparin Sodium (Porcine) (Heparin Sodium) 5,000 unit Q12HR 11/25/18 21:00 11/27/18 08:41 5,000 UNIT Info (PHARMACY MONITORING -- do not chart) 1 each PRN DAILY PRN 11/25/18 14:45 UNV Insulin Human Lispro (HumaLOG) 0-5 UNITS BG 300-39... TIDWMEALS 11/25/18 08:00 Lactobacillus Rhamnosus (Culturelle) 1 cap BID 11/24/18 21:00 11/27/18 08:39 1 CAP Linezolid (Zyvox) 600 mg BID 11/25/18 11:00 11/27/18 08:39 600 MG Meropenem 500 mg/ Sodium Chloride 50 ml @ 100 mls/hr DAILY16 11/25/18 16:00 11/26/18 16:47 100 MLS/HR Ondansetron HCl (Zofran Odt) 4 mg PRN Q6HRS PRN 11/27/18 02:15 11/27/18 08:40 4 MG Pantoprazole Sodium (Protonix) 40 mg DAILYAC 11/25/18 07:30 11/27/18 08:39 40 MG Pregabalin (Lyrica) 50 mg HS 11/24/18 21:00 11/26/18 21:09 50 MG Sevelamer Carbonate (Renvela) 800 mg TIDWMEALS 11/25/18 08:00 11/27/18 12:10 800 MG Sodium Chloride 1,000 ml @ 400 mls/hr Q2H30M PRN 11/25/18 14:30 11/25/18 20:30 DC Vitamin B Complex/ Vitamin C (Krista-Beatriz) 1 tab DAILY 11/25/18 09:00 11/27/18 08:39 1 TAB Vitamin D (Vitamin D3) 1,000 unit DAILY 11/25/18 09:00 11/27/18 08:39 1,000 UNIT Lab Laboratory Tests Test 11/26/18 16:39 11/26/18 19:27 11/26/18 21:22 11/27/18 07:11 Glucose (Fingerstick) 111 mg/dL (70-99) 85 mg/dL (70-99) 102 mg/dL (70-99) 76 mg/dL (70-99) Test 11/27/18 11:15 Glucose (Fingerstick) 123 mg/dL (70-99) Results All relevant outside records, renal labs, imaging studies, telemetry/EKG's were reviewed. JANAE MONTAGUE MD Nov 27, 2018 14:00
[2018-11-27 15:00] VITALS: BP 122/49
[2018-11-27] MEDS: MEROPENEM 500 MG in IV NORMAL SALINE 50ML 50 ML IV SCH (16:39)
[2018-11-27 19:00] VITALS: BP 139/73
[2018-11-27] MEDS: ATORVASTATIN CALCIUM 40 MG TABLET. PO SCH (20:22)
[2018-11-27] MEDS: PREGABALIN 50 MG CAPSULE PO SCH (20:22)
[2018-11-27 23:00] VITALS: BP 128/67
[2018-11-28 03:00] VITALS: BP 118/50
[2018-11-28 07:00] VITALS: BP 88/35
[2018-11-28 07:33] LABS: BASO % 0 % (0-3); EOS # 0.2 x10^3/uL (0.0-0.7); EOS % 3 % (0-3); HEMATOCRIT 25.3 % (39.0-53.0); HEMOGLOBIN 8.3 g/dL (13.0-17.5); LYMPH # 0.9 x10^3/uL (1.0-4.8); LYMPH % 15 % (24-48); MEAN CORPUSCULAR HEMOGLOBIN 31 pg (25-35); MEAN CORPUSCULAR HGB CONC 33 g/dL (31-37); MEAN CORPUSCULAR VOLUME 94 fL (79-100); MONO # 0.6 x10^3/uL (0.0-1.1); MONO % 9 % (0-9); NEUT # 4.6 x10^3uL (1.8-7.7); NEUT % 73 % (31-73); PLATELET COUNT 92 x10^3/uL (140-400); RED CELL DISTRIBUTION WIDTH 19.2 % (11.5-14.5); WHITE BLOOD COUNT 6.3 x10^3/uL (4.0-11.0)
[2018-11-28 07:39] LABS: ALBUMIN 2.4 g/dL (3.4-5.0); CALCIUM 8.5 mg/dL (8.5-10.1); CREATININE 8.1 mg/dL (0.7-1.3); GFR 7.8; PHOSPHORUS 5.1 mg/dL (2.6-4.7)
[2018-11-28 07:47] LABS: POTASSIUM 6.3 mmol/L (3.5-5.1)
[2018-11-28] MEDS: INSULIN LISPRO 300 UNITS/3 ML INSULN.PEN. SQ SCH ×3 (08:00→17:00)
[2018-11-28] MEDS: ASPIRIN CHEWABLE 81 MG TABLET. PO SCH (08:47)
[2018-11-28] MEDS: CHOLECALCIFEROL (VITAMIN D3) 1,000 UNIT TABLET PO SCH (08:47)
[2018-11-28] MEDS: ALLOPURINOL 100 MG TABLET. PO SCH (08:47)
[2018-11-28] MEDS: SEVELAMER CARBONATE 800 MG TABLET. PO SCH ×3 (08:47→17:00)
[2018-11-28] MEDS: CYANOCOBALAMIN (VITAMIN B-12) 1,000 MCG TABLET. PO SCH (08:48)
[2018-11-28] MEDS: CLOPIDOGREL BISULFATE 75 MG TABLET PO SCH (08:48)
[2018-11-28] MEDS: LINEZOLID 600 MG TABLET PO SCH (08:48)
[2018-11-28] MEDS: LACTOBACILLUS RHAMNOSUS GG 1 CAPSULE. PO SCH ×2 (08:48→20:45)
[2018-11-28] MEDS: PANTOPRAZOLE 40 MG TABLET.DR. PO SCH (08:48)
[2018-11-28] MEDS: CARVEDILOL 3.125 MG TABLET. PO SCH ×2 (08:48→17:00)
[2018-11-28] MEDS: FOLIC/VIT B COMP W-C (RENAL) TABLET. PO SCH (08:48)
[2018-11-28] MEDS: COLLAGENASE 250 UNIT/GM TOPICAL OINTMENT 30GM TUBE. TP SCH (09:00)
[2018-11-28] MEDS ORDERED: IV NORMAL SALINE 1000ML BAG 1,000 ML IV PRN ×2 (09:05)
[2018-11-28] MEDS: ONDANSETRON ODT 4 MG TAB.RAPDIS. PO PRN ×2 (09:08→18:25)
[2018-11-28] MEDS ORDERED: DIALYSIS PATIENT. MC PRN ×2 (09:15)
[2018-11-28] MEDS: HYDROcodone/APAP 5/325MG 1 TAB TABLET PO PRN ×2 (09:15→23:30)
[2018-11-28] MEDS ORDERED: ALBUMIN HUMAN 25% 200 ML IV PRN (09:15)
--- NOTE | 2018-11-28 09:19 | PDOC ---
Provider Note Provider Note Vascular F/U Re: open amp rt 1st toe, PVD Distal necrotic tissue dissolving with Santyl Spoke with Daughter, Plan: HBO, if can't heal with HBO will require Rt BK amp KIMI REBOLLEDO MD Nov 28, 2018 09:19
--- NOTE | 2018-11-28 09:48 | PDOC ---
PROGRESS NOTES Subjective Subjective discussed with dr. Wilson and ID DIRECTOR MARKETING COMMUNICATIONS and patients nurse and with patient and his sister. discussed that if HBO oxygen rx does not work that he will need a right BKA. ID to evaluate antibiotics. platelet count 94K and will d/c sq heparin but also receiving zyvox. lab reviewed.. had loose stool today. some nausea. Objective Objective Vital Signs Date Time Temp Pulse Resp B/P (MAP) Pulse Ox O2 Delivery O2 Flow Rate FiO2 11/28/18 09:15 100 Room Air 2.0 11/28/18 08:48 60 88/35 11/28/18 07:00 98.1 18 98.1 Intake and Output 11/28/18 07:01 Intake Total 1280 ml Balance 1280 ml Intake Oral 1280 ml # Voids 2 # Bowel Movements 4 Physical Exam Abdomen: Soft, Other (obese) Heart: Normal S1, Normal S2 Extremities: No edema, Other (left great toe amputation. wound right ankle and right foot. latter with some necrosis distal wound) General: Alert HEENT: Atraumatic Lungs: Clear to auscultation Neuro: Normal speech Psych/Mental Status: Mental status NL Skin: No rashes Assessment Assessment necrotic right foot wound osteomyelitis of right great toe and first metatarsal right ankle wound with granulation tissue severe PAD RLE involving tibial and pedal vessels ESRD on hemodialysis m-w- diabetes mellitus type 2 with peripheral neuropathy morbid obesity debility Plan Plan of Care hemodialysis today antibiotics per ID d/c sq heparin continue aspirin and plavix zofran prn stool for c. diff toxin dismiss today to snf Comment Review of Relevant I have reviewed the following items simeon (where applicable) has been applied. Labs Laboratory Tests Test 11/26/18 11:38 11/26/18 16:39 11/26/18 19:27 11/26/18 21:22 Glucose (Fingerstick) 104 mg/dL (70-99) 111 mg/dL (70-99) 85 mg/dL (70-99) 102 mg/dL (70-99) Test 11/27/18 07:11 11/27/18 11:15 11/27/18 16:12 11/27/18 21:40 Glucose (Fingerstick) 76 mg/dL (70-99) 123 mg/dL (70-99) 125 mg/dL (70-99) 78 mg/dL (70-99) Test 11/28/18 07:00 11/28/18 07:23 White Blood Count 6.3 x10^3/uL (4.0-11.0) Red Blood Count 2.70 x10^6/uL (4.30-5.70) Hemoglobin 8.3 g/dL (13.0-17.5) Hematocrit 25.3 % (39.0-53.0) Mean Corpuscular Volume 94 fL (79-100) Mean Corpuscular Hemoglobin 31 pg (25-35) Mean Corpuscular Hemoglobin Concent 33 g/dL (31-37) Red Cell Distribution Width 19.2 % (11.5-14.5) Platelet Count 92 x10^3/uL (140-400) Neutrophils (%) (Auto) 73 % (31-73) Lymphocytes (%) (Auto) 15 % (24-48) Monocytes (%) (Auto) 9 % (0-9) Eosinophils (%) (Auto) 3 % (0-3) Basophils (%) (Auto) 0 % (0-3) Neutrophils # (Auto) 4.6 x10^3uL (1.8-7.7) Lymphocytes # (Auto) 0.9 x10^3/uL (1.0-4.8) Monocytes # (Auto) 0.6 x10^3/uL (0.0-1.1) Eosinophils # (Auto) 0.2 x10^3/uL (0.0-0.7) Basophils # (Auto) 0.0 x10^3/uL (0.0-0.2) Sodium Level 138 mmol/L (136-145) Potassium Level 6.3 mmol/L (3.5-5.1) Chloride Level 98 mmol/L (98-107) Carbon Dioxide Level 27 mmol/L (21-32) Anion Gap 13 (6-14) Blood Urea Nitrogen 70 mg/dL (8-26) Creatinine 8.1 mg/dL (0.7-1.3) Estimated GFR (Cockcroft-Gault) 7.8 Glucose Level 104 mg/dL (70-99) Calcium Level 8.5 mg/dL (8.5-10.1) Phosphorus Level 5.1 mg/dL (2.6-4.7) Magnesium Level 2.0 mg/dL (1.8-2.4) Creatine Kinase 35 U/L (39-308) Albumin 2.4 g/dL (3.4-5.0) Glucose (Fingerstick) 77 mg/dL (70-99) Laboratory Tests Test 11/27/18 11:15 11/27/18 16:12 11/27/18 21:40 11/28/18 07:00 Glucose (Fingerstick) 123 mg/dL (70-99) 125 mg/dL (70-99) 78 mg/dL (70-99) White Blood Count 6.3 x10^3/uL (4.0-11.0) Red Blood Count 2.70 x10^6/uL (4.30-5.70) Hemoglobin 8.3 g/dL (13.0-17.5) Hematocrit 25.3 % (39.0-53.0) Mean Corpuscular Volume 94 fL (79-100) Mean Corpuscular Hemoglobin 31 pg (25-35) Mean Corpuscular Hemoglobin Concent 33 g/dL (31-37) Red Cell Distribution Width 19.2 % (11.5-14.5) Platelet Count 92 x10^3/uL (140-400) Neutrophils (%) (Auto) 73 % (31-73) Lymphocytes (%) (Auto) 15 % (24-48) Monocytes (%) (Auto) 9 % (0-9) Eosinophils (%) (Auto) 3 % (0-3) Basophils (%) (Auto) 0 % (0-3) Neutrophils # (Auto) 4.6 x10^3uL (1.8-7.7) Lymphocytes # (Auto) 0.9 x10^3/uL (1.0-4.8) Monocytes # (Auto) 0.6 x10^3/uL (0.0-1.1) Eosinophils # (Auto) 0.2 x10^3/uL (0.0-0.7) Basophils # (Auto) 0.0 x10^3/uL (0.0-0.2) Sodium Level 138 mmol/L (136-145) Potassium Level 6.3 mmol/L (3.5-5.1) Chloride Level 98 mmol/L (98-107) Carbon Dioxide Level 27 mmol/L (21-32) Anion Gap 13 (6-14) Blood Urea Nitrogen 70 mg/dL (8-26) Creatinine 8.1 mg/dL (0.7-1.3) Estimated GFR (Cockcroft-Gault) 7.8 Glucose Level 104 mg/dL (70-99) Calcium Level 8.5 mg/dL (8.5-10.1) Phosphorus Level 5.1 mg/dL (2.6-4.7) Magnesium Level 2.0 mg/dL (1.8-2.4) Creatine Kinase 35 U/L (39-308) Albumin 2.4 g/dL (3.4-5.0) Test 11/28/18 07:23 Glucose (Fingerstick) 77 mg/dL (70-99) Medications Current Medications Acetaminophen (Tylenol) 325 mg PRN Q4HRS PRN PO MILD PAIN / TEMP; Start at 20:30 Allopurinol (Zyloprim) 100 mg DAILY PO Last administered on 11/28/18 08:47; Start 11/25/18 at 09:00 Aspirin (Children'S Aspirin) 81 mg DAILY PO Last administered on 11/28/18 08: 47; Start 11/25/18 at 09:00 Atorvastatin Calcium (Lipitor) 40 mg HS PO Last administered on 11/27/18at 20: 22; Start 11/24/18 at 21:00 Carvedilol (Coreg) 3.125 mg BIDWMEALS PO Last administered on 11/28/18 08:48 ; Start 11/24/18 at 21:00 Vitamin D (Vitamin D3) 1,000 unit DAILY PO Last administered on 11/28/18 08: 47; Start 11/25/18 at 09:00 Clopidogrel Bisulfate (Plavix) 75 mg DAILY PO Last administered on 11/28/18 08:48; Start 11/25/18 at 09:00 Cyanocobalamin (Vitamin B-12) 1,000 mcg DAILY PO Last administered on 08:48; Start 11/25/18 at 09:00 Acetaminophen/ Hydrocodone Bitart (Lortab 5/325) 1 tab PRN Q4HRS PRN PO MODERATE - SEVERE PAIN Last administered on 11/28/18at 09:15; Start 11/24/18 at 20:30 Pregabalin (Lyrica) 50 mg HS PO Last administered on 11/27/18at 20:22; Start 11/24/18 at 21:00 Sevelamer Carbonate (Renvela) 800 mg TIDWMEALS PO Last administered on at 08:47; Start 11/25/18 at 08:00 Vitamin B Complex/ Vitamin C (Krista-Beatriz) 1 tab DAILY PO Last administered on at 08:48; Start 11/25/18 at 09:00 Lactobacillus Rhamnosus (Culturelle) 1 cap BID PO Last administered on 08:48; Start 11/24/18 at 21:00 Pantoprazole Sodium (Protonix) 40 mg DAILYAC PO Last administered on at 08:48; Start 11/25/18 at 07:30 Insulin Human Lispro (HumaLOG) 0-5 UNITS TIDWMEALS SQ ; Start 11/24/18 at 21:00 ; Stop 11/24/18 at 21:57; Status DC Dextrose (Dextrose 50%-Water Syringe) 12.5 gm PRN Q15MIN PRN IV SEE COMMENTS; Start 11/24/18 at 20:45 Insulin Human Lispro (HumaLOG) 0-5 UNITS TIDWMEALS SQ ; Start 11/25/18 at 08:00 ; Stop 11/25/18 at 08:00; Status DC Insulin Human Lispro (HumaLOG) 0-5 UNITS BG 300-39... TIDWMEALS SQ ; Start at 08:00 Collagenase (Santyl) 1 judi DAILY TP Last administered on 11/27/18at 12:11; Start 11/25/18 at 10:00 Meropenem 500 mg/ Sodium Chloride 50 ml @ 100 mls/hr Q12HR IV ; Start at 21:00; Status UNV Daptomycin 690 mg/ Sodium Chloride 50 ml @ 100 mls/hr MoWeFr@1600 IV Last administered on 11/25/18at 19:21; Start 11/25/18 at 16:00 Heparin Sodium (Porcine) (Heparin Sodium) 5,000 unit Q12HR SQ Last administered on 11/27/18at 20:28; Start 11/25/18 at 21:00 Meropenem 500 mg/ Sodium Chloride 50 ml @ 100 mls/hr DAILY16 IV Last administered on 11/27/18at 16:39; Start 11/25/18 at 16:00 Linezolid (Zyvox) 600 mg BID PO Last administered on 11/28/18at 08:48; Start 11/25/18 at 11:00 Info (PHARMACY MONITORING -- do not chart) 1 each PRN DAILY PRN MC SEE COMMENTS ; Start 11/25/18 at 10:45 Sodium Chloride 1,000 ml @ 1,000 mls/hr Q1H PRN IV hypotension; Start at 14:30; Stop 11/25/18 at 20:30; Status DC Sodium Chloride 1,000 ml @ 400 mls/hr Q2H30M PRN IV PATENCY; Start 11/25/18 at 14:30; Stop 11/25/18 at 20:30; Status DC Info (PHARMACY MONITORING -- do not chart) 1 each PRN DAILY PRN MC SEE COMMENTS ; Start 11/25/18 at 14:45; Status UNV Info (PHARMACY MONITORING -- do not chart) 1 each PRN DAILY PRN MC SEE COMMENTS ; Start 11/25/18 at 14:45; Status UNV Ondansetron HCl (Zofran Odt) 4 mg PRN Q6HRS PRN PO NAUSEA/VOMITING Last administered on 11/28/18at 09:08; Start 11/27/18 at 02:15 Magnesium Sulfate 50 ml @ 25 mls/hr PRN DAILY PRN IV for Mag < 1.7 on am labs; Start 11/27/18 at 14:00 Sodium Chloride 1,000 ml @ 1,000 mls/hr Q1H PRN IV hypotension; Start at 09:05; Stop 11/28/18 at 15:04 Albumin Human 200 ml @ 200 mls/hr 1X PRN PRN IV Hypotension; Start 11/28/18 at 09:15; Stop 11/28/18 at 15:14 Sodium Chloride 1,000 ml @ 400 mls/hr Q2H30M PRN IV PATENCY; Start 11/28/18 at 09:05; Stop 11/28/18 at 21:04 Info (PHARMACY MONITORING -- do not chart) 1 each PRN DAILY PRN MC SEE COMMENTS ; Start 11/28/18 at 09:15 Info (PHARMACY MONITORING -- do not chart) 1 each PRN DAILY PRN MC SEE COMMENTS ; Start 11/28/18 at 09:15 Active Scripts Active Zyvox (Linezolid) 600 Mg Tablet 600 Mg PO BID 30 Days Hydrocodone-Apap 5-325 (Hydrocodone Bit/Acetaminophen) 1 Tab Tablet 1 Tab PO PRN Q4HRS PRN 30 Days Aspirin Ec (Aspirin) 81 Mg Tablet.dr 81 Mg PO DAILYWBKFT 30 Days [Pantoprazole] 40 MG Tablet.dr 40 Mg PO DAILYAC 30 Days Humalog (Insulin Lispro) 100 Unit/1 Ml Insuln.pen 0 Units SQ TIDWMEALS 30 Days BG 150-199= 1 units 200-299= 2 units 300-399= 4 units 400-499= 6 units ac tid sliding scale Culturelle (Lactobacillus Rhamnosus Gg) 1 Each Cap.sprink 1 Cap PO BID 30 Days Tylenol (Acetaminophen) 325 Mg Tablet 325 Mg PO PRN Q4HRS PRN 30 Days Carvedilol (Carvedilol) 3.125 Mg Tablet 3.125 Mg PO BIDWMEALS 30 Days Renvela (Sevelamer Carbonate) 800 Mg Tablet 800 Mg PO TIDWMEALS 30 Days Pantoprazole Sodium 40 Mg Tablet.dr 40 Mg PO DAILYAC 30 Days Krista-Beatriz Tablet (Folic Acid/Vitamin B Comp W-C) 0.8 Mg Tablet 1 Tab PO DAILY 30 Days Reported Vitamin B-12 (Cyanocobalamin (Vitamin B-12)) 1,000 Mcg Tablet 1 Tab PO DAILY Allopurinol 100 Mg Tablet 1 Tab PO DAILY Renal Caps Softgel (Folic Acid/Vitamin B Comp W-C) 1 Mg Capsule 1 Cap PO DAILY Acidophilus Lactobacilli (Lactobacillus Acidophilus) 1 Each Capsule 1 Each PO BID Protonix (Pantoprazole Sodium) 20 Mg Tablet.dr 40 Mg PO DAILY Renvela (Sevelamer Carbonate) 800 Mg Tablet 800 Mg PO TIDWMEALS Lyrica (Pregabalin) 50 Mg Capsule 50 Mg PO HS Tylenol (Acetaminophen) 325 Mg Tablet 1 Tab PO PRN Q4HRS Hydrocodone-Apap 5-325 (Hydrocodone Bit/Acetaminophen) 1 Tab Tablet 1 Tab PO PRN Q4HRS PRN Aspirin 81 Mg Tab.chew 81 Mg PO DAILY Carvedilol (Carvedilol) 3.125 Mg Tablet 3.125 Mg PO BIDWMEALS Lipitor (Atorvastatin Calcium) 40 Mg Tablet 40 Mg PO HS Clopidogrel (Clopidogrel Bisulfate) 75 Mg Tablet 75 Mg PO DAILY Vitamin D (Cholecalciferol (Vitamin D3)) 2,000 Unit Capsule 1 Cap PO DAILY [place] 5-325 Tablet (Acetaminophen/Hydrocodone Bitart) 1 Each Tablet 1 Tab PO PRN Q4HRS PRN Lyrica (Pregabalin) 50 Mg Capsule 25 Mg PO HS Clopidogrel (Clopidogrel Bisulfate) 75 Mg Tablet 1 Tab PO DAILY Atorvastatin Calcium 40 Mg Tablet 40 Mg PO HS Allopurinol 100 Mg Tablet 1 Tab PO DAILY Vitamin B-12 (Cyanocobalamin (Vitamin B-12)) 1,000 Mcg Tablet 1 Tab PO DAILY Vitamin D-3 (Cholecalciferol (Vitamin D3)) 2,000 Unit Capsule 1,000 Unit PO DAILY Vitals/I & O Vital Sign - Last 24 Hours 11/27/18 11/27/18 11/27/18 11/27/18 10:39 13:29 15:00 17:18 Temp 97.9 97.9 97.9 97.9 Pulse 60 60 60 Resp 20 20 B/P (MAP) 125/50 (75) 122/49 (73) 139/73 Pulse Ox 96 97 O2 Delivery Room Air Room Air Room Air 11/27/18 11/27/18 11/27/18 11/27/18 19:00 20:00 20:21 21:27 Temp 97.5 97.5 Pulse 60 Resp 20 B/P (MAP) 139/73 (95) Pulse Ox 69 97 97 O2 Delivery Room Air Room Air Nasal Cannula O2 Flow Rate 2.0 11/27/18 11/28/18 11/28/18 11/28/18 23:00 03:00 07:00 08:48 Temp 97.8 97.4 98.1 97.8 97.4 98.1 Pulse 63 82 60 60 Resp 20 16 18 B/P (MAP) 128/67 (87) 118/50 (72) 88/35 (52) 88/35 Pulse Ox 95 96 100 O2 Delivery 2L PRN 11/28/18 09:15 Pulse Ox 100 O2 Delivery Room Air O2 Flow Rate 2.0 Intake and Output 1211/27/18 11/28/18 15:01 23:01 07:01 Intake Total 960 ml 320 ml Balance 960 ml 320 ml KIMI TIDWELL MD Nov 28, 2018 09:48
[2018-11-28] MEDS ORDERED: ONDA4TAB7 PO (09:49)
--- NOTE | 2018-11-28 09:53 | PDOC ---
Provider Note Provider Note discharge summary addendum dictated # [id number] KIMI TIDWELL MD Nov 28, 2018 09:53
--- NOTE | 2018-11-28 10:26 | NUR ---
FABRIZIO following for dc planning. Discussed with RN, pt needs PT/OT for two days for insurance recertification to go back to [facility]. FABRIZIO faxed update to [facility]. Anticipate pt will discharge back to [facility] on Wednesday (11/30/18). FABRIZIO will continue to follow.
[2018-11-28 11:00] VITALS: BP 125/58
--- NOTE | 2018-11-28 11:10 | PDOC ---
Infectious Disease Note Subjective Subjective c/o N/V as well as 3-4 loose stools a day Diminished appetite Denies cramps/bloating Denies F/C/S/muscle aches ROS ROS per HPI otherwise neg Vital Sign Vital Signs Vital Signs Date Time Temp Pulse Resp B/P (MAP) Pulse Ox O2 Delivery O2 Flow Rate FiO2 11/28/18 09:15 100 Room Air 2.0 11/28/18 08:48 60 88/35 11/28/18 07:00 98.1 18 98.1 Physical Exam PHYSICAL EXAM GENERAL: Resting quietly HEENT: Oral cavity clear NECK: Supple. LUNGS: Clear HEART: S1, S2 ABDOMEN: Soft, NT, BS present EXTREMITIES: Trace edema; right 1st toe amp site w/ some nonviable tissue. Lateral ankle wound granulating. AV fistula NEUROLOGIC: Arouses to name, responds appropriately SKIN: No rash Right SCL (11/10) clean Labs Lab Laboratory Tests Test 11/27/18 11:15 11/27/18 16:12 11/27/18 21:40 11/28/18 07:00 Glucose (Fingerstick) 123 mg/dL (70-99) 125 mg/dL (70-99) 78 mg/dL (70-99) White Blood Count 6.3 x10^3/uL (4.0-11.0) Red Blood Count 2.70 x10^6/uL (4.30-5.70) Hemoglobin 8.3 g/dL (13.0-17.5) Hematocrit 25.3 % (39.0-53.0) Mean Corpuscular Volume 94 fL (79-100) Mean Corpuscular Hemoglobin 31 pg (25-35) Mean Corpuscular Hemoglobin Concent 33 g/dL (31-37) Red Cell Distribution Width 19.2 % (11.5-14.5) Platelet Count 92 x10^3/uL (140-400) Neutrophils (%) (Auto) 73 % (31-73) Lymphocytes (%) (Auto) 15 % (24-48) Monocytes (%) (Auto) 9 % (0-9) Eosinophils (%) (Auto) 3 % (0-3) Basophils (%) (Auto) 0 % (0-3) Neutrophils # (Auto) 4.6 x10^3uL (1.8-7.7) Lymphocytes # (Auto) 0.9 x10^3/uL (1.0-4.8) Monocytes # (Auto) 0.6 x10^3/uL (0.0-1.1) Eosinophils # (Auto) 0.2 x10^3/uL (0.0-0.7) Basophils # (Auto) 0.0 x10^3/uL (0.0-0.2) Sodium Level 138 mmol/L (136-145) Potassium Level 6.3 mmol/L (3.5-5.1) Chloride Level 98 mmol/L (98-107) Carbon Dioxide Level 27 mmol/L (21-32) Anion Gap 13 (6-14) Blood Urea Nitrogen 70 mg/dL (8-26) Creatinine 8.1 mg/dL (0.7-1.3) Estimated GFR (Cockcroft-Gault) 7.8 Glucose Level 104 mg/dL (70-99) Calcium Level 8.5 mg/dL (8.5-10.1) Phosphorus Level 5.1 mg/dL (2.6-4.7) Magnesium Level 2.0 mg/dL (1.8-2.4) Creatine Kinase 35 U/L (39-308) Albumin 2.4 g/dL (3.4-5.0) Test 11/28/18 07:23 Glucose (Fingerstick) 77 mg/dL (70-99) Objective Assessment Recent 1 st toe amp with developing gangrene, s/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 (h/o MSSA, Enterobacter and VRE). ESR 90 Right lateral malleolus wound s/p sharp excisional debridement removing necrotic subcutaneous tissue, 11/02. -11/02. Enterobacter aerogenes, Cipro sensitive, VRE (linezolid & Dapto sensistive; PCN resistent) and Gram variable nuria not ID PAD s/p angio 11/03. ESRD/HD Diarrhea/loose stools. C. diff pending Thrombocytopenia - on Zyvox Plan Plan of Care Discharging to [facility] when can be arranged Continue Dapto and meropenem D/c zyvox Repeat CBC in am monitor platelets f/u C. diff results Every Wednesday CBC, ESR, CPK. Fax results to [phone] f/u appt with us in 1-2 weeks f/u with vascular as directed HBO therapy - wound care team following D/w nursing and social insurance analyst D/w Dr. Street Attending Co-Sign Attending Co-Sign The patient was seen and interviewed as well as examined at the bedside. The chart was reviewed. The case was discussed. Agree with the plan of care. SHAVON KNAPP APRN Nov 28, 2018 11:10 JAYY SUÁREZ MD Nov 28, 2018 15:11
--- NOTE | 2018-11-28 11:15 | NUR ---
Wound Care Wound care follow up for multiple DFU's. Cleansed and measured and pictured R 2nd toe. L 2nd toe- applied xeroform and bandaid, change Q3D. R med foot- santyl and ABD with kerlix, change QD. R 2nd toe- betadine and bandaid, change Q3D. R lat ankle- xeroform and foam, change Q3D. No other wounds found on full skin inspection. Pt on P500 bed, left with heels floated. Educated pt on PU prevention. Discussed POC with Fern MARTINEZ. Pt will follow up in clinic on for hyperbarics consult and wound care.
--- NOTE | 2018-11-28 12:33 | NUR ---
1200 dose renvela non-admin as patient did not want to eat lunch
--- NOTE | 2018-11-28 13:37 | PDOC2 ---
CONSULT Date of Consult Date of Consult DATE: 11/28/18 TIME: 13:10 Reason for Consult Reason for Consult: Consideration of adjunctive hyperbaric oxygen therapy in the treatment of right forefoot diabetic ulcer Referring Physician Referring Physician: Dr. Street Identification/Chief Complaint Chief Complaint Right forefoot diabetic ulcer in the setting of severe diabetic angiopathy Source Source: Chart review, Patient History of Present Illness Reason for Visit: This is a 77-year-old patient previously known to the wound care center for right forefoot diabetic ulcer with evidence of bone necrosis. He underwent vascular intervention with angioplasty of the superficial femoral and tibial vessels by IR followed by right first toe partial closed amputation by orthopedic surgery in July of this year. Patient experienced wound dehiscence and was readmitted on 11/01 requiring right first toe amputation and distal metatarsal resection. He appeared to be improving in the immediate postoperative period until just recently when necrotic tissue and infection was evident requiring a third hospitalization. The patient has been unable to heal these and per vascular surgery has no further vascular intervention options. For this reason, adjunctive hyperbaric oxygen therapy is now considered in a limb saving effort. He has demonstrate consistent inability to heal surgical debridements despite all efforts to improve blood flow. Prior transcutaneous oximetry assessment has demonstrated poor readings. The original ulcer predates the July 2018 partial toe amputation for osteomyelitis. Original measurements in July showed ulcer square surface area less than 5 cm� with current measurement now greater than 21 cm�. Past Medical History Cardiovascular: AFIB, HTN, Other (PAD) CENTRAL NERVOUS SYSTEM: Periperal neuropathy Renal/: Other (end stage renal disease on hemodialyusis) Endocrine: Diabetes Past Surgical History Past Surgical History: Pacemaker, Cataract Removal, Other (pacemaker and lefgt femoral artery stend and amputation of lecft gret toe) Family History Family History: Other (not contributory) Social History No ALCOHOL: none Drugs: None Current Medications Current Medications Current Medications Acetaminophen (Tylenol) 325 mg PRN Q4HRS PRN PO MILD PAIN / TEMP; Start at 20:30 Allopurinol (Zyloprim) 100 mg DAILY PO Last administered on 11/28/18at 08:47; Start 11/25/18 at 09:00 Aspirin (Children'S Aspirin) 81 mg DAILY PO Last administered on 11/28/18at 08: 47; Start 11/25/18 at 09:00 Atorvastatin Calcium (Lipitor) 40 mg HS PO Last administered on 11/27/18 20: 22; Start 11/24/18 at 21:00 Carvedilol (Coreg) 3.125 mg BIDWMEALS PO Last administered on 11/28/18 08:48 ; Start 11/24/18 at 21:00 Vitamin D (Vitamin D3) 1,000 unit DAILY PO Last administered on 11/28/18 08: 47; Start 11/25/18 at 09:00 Clopidogrel Bisulfate (Plavix) 75 mg DAILY PO Last administered on 11/28/18 08:48; Start 11/25/18 at 09:00 Cyanocobalamin (Vitamin B-12) 1,000 mcg DAILY PO Last administered on 08:48; Start 11/25/18 at 09:00 Acetaminophen/ Hydrocodone Bitart (Lortab 5/325) 1 tab PRN Q4HRS PRN PO MODERATE - SEVERE PAIN Last administered on 11/28/18 09:15; Start 11/24/18 at 20:30 Pregabalin (Lyrica) 50 mg HS PO Last administered on 11/27/18 20:22; Start 11/24/18 at 21:00 Sevelamer Carbonate (Renvela) 800 mg TIDWMEALS PO Last administered on 08:47; Start 11/25/18 at 08:00 Vitamin B Complex/ Vitamin C (Krista-Beatriz) 1 tab DAILY PO Last administered on 08:48; Start 11/25/18 at 09:00 Lactobacillus Rhamnosus (Culturelle) 1 cap BID PO Last administered on 08:48; Start 11/24/18 at 21:00 Pantoprazole Sodium (Protonix) 40 mg DAILYAC PO Last administered on 08:48; Start 11/25/18 at 07:30 Insulin Human Lispro (HumaLOG) 0-5 UNITS TIDWMEALS SQ ; Start 11/24/18 at 21:00 ; Stop 11/24/18 at 21:57; Status DC Dextrose (Dextrose 50%-Water Syringe) 12.5 gm PRN Q15MIN PRN IV SEE COMMENTS; Start 11/24/18 at 20:45 Insulin Human Lispro (HumaLOG) 0-5 UNITS TIDWMEALS SQ ; Start 11/25/18 at 08:00 ; Stop 11/25/18 at 08:00; Status DC Insulin Human Lispro (HumaLOG) 0-5 UNITS BG 300-39... TIDWMEALS SQ ; Start at 08:00 Collagenase (Santyl) 1 judi DAILY TP Last administered on 11/27/18at 12:11; Start 11/25/18 at 10:00 Meropenem 500 mg/ Sodium Chloride 50 ml @ 100 mls/hr Q12HR IV ; Start at 21:00; Status UNV Daptomycin 690 mg/ Sodium Chloride 50 ml @ 100 mls/hr MoWeFr@1600 IV Last administered on 11/25/18at 19:21; Start 11/25/18 at 16:00 Heparin Sodium (Porcine) (Heparin Sodium) 5,000 unit Q12HR SQ Last administered on 11/27/18at 20:28; Start 11/25/18 at 21:00; Stop 11/28/18 at 09 :44; Status DC Meropenem 500 mg/ Sodium Chloride 50 ml @ 100 mls/hr DAILY16 IV Last administered on 11/27/18at 16:39; Start 11/25/18 at 16:00 Linezolid (Zyvox) 600 mg BID PO Last administered on 11/28/18at 08:48; Start 11/25/18 at 11:00; Stop 11/28/18 at 10:04; Status DC Info (PHARMACY MONITORING -- do not chart) 1 each PRN DAILY PRN MC SEE COMMENTS ; Start 11/25/18 at 10:45 Sodium Chloride 1,000 ml @ 1,000 mls/hr Q1H PRN IV hypotension; Start at 14:30; Stop 11/25/18 at 20:30; Status DC Sodium Chloride 1,000 ml @ 400 mls/hr Q2H30M PRN IV PATENCY; Start 11/25/18 at 14:30; Stop 11/25/18 at 20:30; Status DC Info (PHARMACY MONITORING -- do not chart) 1 each PRN DAILY PRN MC SEE COMMENTS ; Start 11/25/18 at 14:45; Status UNV Info (PHARMACY MONITORING -- do not chart) 1 each PRN DAILY PRN MC SEE COMMENTS ; Start 11/25/18 at 14:45; Status UNV Ondansetron HCl (Zofran Odt) 4 mg PRN Q6HRS PRN PO NAUSEA/VOMITING Last administered on 11/28/18at 09:08; Start 11/27/18 at 02:15 Magnesium Sulfate 50 ml @ 25 mls/hr PRN DAILY PRN IV for Mag < 1.7 on am labs; Start 11/27/18 at 14:00 Sodium Chloride 1,000 ml @ 1,000 mls/hr Q1H PRN IV hypotension; Start at 09:05; Stop 11/28/18 at 15:04 Albumin Human 200 ml @ 200 mls/hr 1X PRN PRN IV Hypotension; Start 11/28/18 at 09:15; Stop 11/28/18 at 15:14 Sodium Chloride 1,000 ml @ 400 mls/hr Q2H30M PRN IV PATENCY; Start 11/28/18 at 09:05; Stop 11/28/18 at 21:04 Info (PHARMACY MONITORING -- do not chart) 1 each PRN DAILY PRN MC SEE COMMENTS ; Start 11/28/18 at 09:15 Info (PHARMACY MONITORING -- do not chart) 1 each PRN DAILY PRN MC SEE COMMENTS ; Start 11/28/18 at 09:15 Active Scripts Active Zofran (Ondansetron Hcl) 4 Mg Tablet 1 Tab PO Q6HRS Zyvox (Linezolid) 600 Mg Tablet 600 Mg PO BID 30 Days Hydrocodone-Apap 5-325 (Hydrocodone Bit/Acetaminophen) 1 Tab Tablet 1 Tab PO PRN Q4HRS PRN 30 Days Aspirin Ec (Aspirin) 81 Mg Tablet.dr 81 Mg PO DAILYWBKFT 30 Days [Pantoprazole] 40 MG Tablet.dr 40 Mg PO DAILYAC 30 Days Humalog (Insulin Lispro) 100 Unit/1 Ml Insuln.pen 0 Units SQ TIDWMEALS 30 Days BG 150-199= 1 units 200-299= 2 units 300-399= 4 units 400-499= 6 units ac tid sliding scale Culturelle (Lactobacillus Rhamnosus Gg) 1 Each Cap.sprink 1 Cap PO BID 30 Days Tylenol (Acetaminophen) 325 Mg Tablet 325 Mg PO PRN Q4HRS PRN 30 Days Carvedilol (Carvedilol) 3.125 Mg Tablet 3.125 Mg PO BIDWMEALS 30 Days Renvela (Sevelamer Carbonate) 800 Mg Tablet 800 Mg PO TIDWMEALS 30 Days Pantoprazole Sodium 40 Mg Tablet.dr 40 Mg PO DAILYAC 30 Days Krista-Beatriz Tablet (Folic Acid/Vitamin B Comp W-C) 0.8 Mg Tablet 1 Tab PO DAILY 30 Days Reported Vitamin B-12 (Cyanocobalamin (Vitamin B-12)) 1,000 Mcg Tablet 1 Tab PO DAILY Allopurinol 100 Mg Tablet 1 Tab PO DAILY Renal Caps Softgel (Folic Acid/Vitamin B Comp W-C) 1 Mg Capsule 1 Cap PO DAILY Acidophilus Lactobacilli (Lactobacillus Acidophilus) 1 Each Capsule 1 Each PO BID Protonix (Pantoprazole Sodium) 20 Mg Tablet.dr 40 Mg PO DAILY Renvela (Sevelamer Carbonate) 800 Mg Tablet 800 Mg PO TIDWMEALS Lyrica (Pregabalin) 50 Mg Capsule 50 Mg PO HS Tylenol (Acetaminophen) 325 Mg Tablet 1 Tab PO PRN Q4HRS Hydrocodone-Apap 5-325 (Hydrocodone Bit/Acetaminophen) 1 Tab Tablet 1 Tab PO PRN Q4HRS PRN Aspirin 81 Mg Tab.chew 81 Mg PO DAILY Carvedilol (Carvedilol) 3.125 Mg Tablet 3.125 Mg PO BIDWMEALS Lipitor (Atorvastatin Calcium) 40 Mg Tablet 40 Mg PO HS Clopidogrel (Clopidogrel Bisulfate) 75 Mg Tablet 75 Mg PO DAILY Vitamin D (Cholecalciferol (Vitamin D3)) 2,000 Unit Capsule 1 Cap PO DAILY Melrose 5-325 Tablet (Acetaminophen/Hydrocodone Bitart) 1 Each Tablet 1 Tab PO PRN Q4HRS PRN Lyrica (Pregabalin) 50 Mg Capsule 25 Mg PO HS Clopidogrel (Clopidogrel Bisulfate) 75 Mg Tablet 1 Tab PO DAILY Atorvastatin Calcium 40 Mg Tablet 40 Mg PO HS Allopurinol 100 Mg Tablet 1 Tab PO DAILY Vitamin B-12 (Cyanocobalamin (Vitamin B-12)) 1,000 Mcg Tablet 1 Tab PO DAILY Vitamin D-3 (Cholecalciferol (Vitamin D3)) 2,000 Unit Capsule 1,000 Unit PO DAILY Allergies Allergies: Coded Allergies: I S O L A T I O N *CONTACT* (Verified Allergy, Unknown, 11/25/18) vre No Known Medication Allergies (Verified Allergy, Unknown, 11/25/18) ROS Review of System Negative except as reported below General: YES: Fatigue Eyes: Yes Blurry vision Respiratory: YES: SOB with excertion Genitourinary: YES Other (end-stage renal disease) Musculoskeletal: Yes Muscular Weakness Neurological: Yes Gait Disturbance, Yes Numbness/Tingling, Yes Weakness Skin: Yes Dry Skin, Yes Other (history of diabetic ulcerations resulting in amputation and multiple surgical debridements) Physical Exam General: Alert, Cooperative HEENT: Atraumatic, EOMI Lungs: Clear to auscultation, Normal air movement Heart: Regular rate Abdomen: Soft, No tenderness Extremities: Other (not palpable popliteal or dorsalis pedis pulse) Skin: Other (diabetic ulcer in consideration for a adjunctive hyperbaric therapy measures 2.9 cm x 7.3 cm x 0.9 cm with 50% slough) Neuro: Other Psych/Mental Status: Mental status NL ( of the right foot) MUSCULOSKELETAL: Not examined Vitals VITALS Vital Signs Date Time Temp Pulse Resp B/P (MAP) Pulse Ox O2 Delivery O2 Flow Rate FiO2 11/28/18 12:12 100 Room Air 2.0 11/28/18 11:00 97.7 61 18 125/58 (80) 97.7 Labs Labs Laboratory Tests Test 11/26/18 16:39 11/26/18 19:27 11/26/18 21:22 11/27/18 07:11 Glucose (Fingerstick) 111 mg/dL (70-99) 85 mg/dL (70-99) 102 mg/dL (70-99) 76 mg/dL (70-99) Test 11/27/18 11:15 11/27/18 16:12 11/27/18 21:40 11/28/18 07:00 Glucose (Fingerstick) 123 mg/dL (70-99) 125 mg/dL (70-99) 78 mg/dL (70-99) White Blood Count 6.3 x10^3/uL (4.0-11.0) Red Blood Count 2.70 x10^6/uL (4.30-5.70) Hemoglobin 8.3 g/dL (13.0-17.5) Hematocrit 25.3 % (39.0-53.0) Mean Corpuscular Volume 94 fL (79-100) Mean Corpuscular Hemoglobin 31 pg (25-35) Mean Corpuscular Hemoglobin Concent 33 g/dL (31-37) Red Cell Distribution Width 19.2 % (11.5-14.5) Platelet Count 92 x10^3/uL (140-400) Neutrophils (%) (Auto) 73 % (31-73) Lymphocytes (%) (Auto) 15 % (24-48) Monocytes (%) (Auto) 9 % (0-9) Eosinophils (%) (Auto) 3 % (0-3) Basophils (%) (Auto) 0 % (0-3) Neutrophils # (Auto) 4.6 x10^3uL (1.8-7.7) Lymphocytes # (Auto) 0.9 x10^3/uL (1.0-4.8) Monocytes # (Auto) 0.6 x10^3/uL (0.0-1.1) Eosinophils # (Auto) 0.2 x10^3/uL (0.0-0.7) Basophils # (Auto) 0.0 x10^3/uL (0.0-0.2) Sodium Level 138 mmol/L (136-145) Potassium Level 6.3 mmol/L (3.5-5.1) Chloride Level 98 mmol/L (98-107) Carbon Dioxide Level 27 mmol/L (21-32) Anion Gap 13 (6-14) Blood Urea Nitrogen 70 mg/dL (8-26) Creatinine 8.1 mg/dL (0.7-1.3) Estimated GFR (Cockcroft-Gault) 7.8 Glucose Level 104 mg/dL (70-99) Calcium Level 8.5 mg/dL (8.5-10.1) Phosphorus Level 5.1 mg/dL (2.6-4.7) Magnesium Level 2.0 mg/dL (1.8-2.4) Creatine Kinase 35 U/L (39-308) Albumin 2.4 g/dL (3.4-5.0) Test 11/28/18 07:23 11/28/18 11:22 Glucose (Fingerstick) 77 mg/dL (70-99) 85 mg/dL (70-99) Laboratory Tests Test 11/27/18 16:12 11/27/18 21:40 11/28/18 07:00 11/28/18 07:23 Glucose (Fingerstick) 125 mg/dL (70-99) 78 mg/dL (70-99) 77 mg/dL (70-99) White Blood Count 6.3 x10^3/uL (4.0-11.0) Red Blood Count 2.70 x10^6/uL (4.30-5.70) Hemoglobin 8.3 g/dL (13.0-17.5) Hematocrit 25.3 % (39.0-53.0) Mean Corpuscular Volume 94 fL (79-100) Mean Corpuscular Hemoglobin 31 pg (25-35) Mean Corpuscular Hemoglobin Concent 33 g/dL (31-37) Red Cell Distribution Width 19.2 % (11.5-14.5) Platelet Count 92 x10^3/uL (140-400) Neutrophils (%) (Auto) 73 % (31-73) Lymphocytes (%) (Auto) 15 % (24-48) Monocytes (%) (Auto) 9 % (0-9) Eosinophils (%) (Auto) 3 % (0-3) Basophils (%) (Auto) 0 % (0-3) Neutrophils # (Auto) 4.6 x10^3uL (1.8-7.7) Lymphocytes # (Auto) 0.9 x10^3/uL (1.0-4.8) Monocytes # (Auto) 0.6 x10^3/uL (0.0-1.1) Eosinophils # (Auto) 0.2 x10^3/uL (0.0-0.7) Basophils # (Auto) 0.0 x10^3/uL (0.0-0.2) Sodium Level 138 mmol/L (136-145) Potassium Level 6.3 mmol/L (3.5-5.1) Chloride Level 98 mmol/L (98-107) Carbon Dioxide Level 27 mmol/L (21-32) Anion Gap 13 (6-14) Blood Urea Nitrogen 70 mg/dL (8-26) Creatinine 8.1 mg/dL (0.7-1.3) Estimated GFR (Cockcroft-Gault) 7.8 Glucose Level 104 mg/dL (70-99) Calcium Level 8.5 mg/dL (8.5-10.1) Phosphorus Level 5.1 mg/dL (2.6-4.7) Magnesium Level 2.0 mg/dL (1.8-2.4) Creatine Kinase 35 U/L (39-308) Albumin 2.4 g/dL (3.4-5.0) Test 11/28/18 11:22 Glucose (Fingerstick) 85 mg/dL (70-99) Assessment/Plan Assessment/Plan Diabetic Emerson 3 ulceration of the right forefoot with evidence of bone necrosis in the setting of severe diabetic angiopathy and macrovascular peripheral vascular disease. Patient has failed to demonstrate healing in the course of >30 days with appropriate efforts to offload, treat infection, control blood sugar and maximize vascular status to the extremity. This failure will likely qualify the patient for adjunctive hyperbaric therapy in an effort to heal recalcitrant diabetic ulcer and salvage right lower leg. We're anticipating outpatient, wound clinic evaluation of the patient to complete education, discussed with family and verify insurance approval. In the interim, we are assessing his pacemaker device for safety at pressure, in the hyperbaric chamber. Complicating the administration of hyperbaric therapy will be the patient's hemodialysis regimen and time requirements. We are currently anticipating outpatient follow-up of Mr. Gaxiola in the wound care setting in 48 hours time. ULISES VELA DO Nov 28, 2018 13:37
--- NOTE | 2018-11-28 14:32 | PDOC ---
Dialysis Progress Note Dialysis Note Dialysis Note Seen on Hemodialysis, tolerating treatment Okay so far Vitals on Hemodialysis General Appearance: Asleep on dialysis and did not awaken Neck: No JVD or JVP Chest: CTA Misha Heart: S1 S2 Abdomen - Soft NTND Extremities - No Edema ESRD: Dialysis as below F 180 NR 3.5 Hrs 2 K 2.5 Ca 140 Na 35 HC03 Qb 350 + Qd 500+ Heparin 0 Units Uf 1 Kgs or to dry weight as tolerated May give 25-50 gms of 25% Albumin if needed to maintain Hemodynamic stability Treatment plan reviewed and discussed with project administrative assistant Vitals Vital Signs Vital Signs Date Time Temp Pulse Resp B/P (MAP) Pulse Ox O2 Delivery O2 Flow Rate FiO2 11/28/18 12:12 100 Room Air 2.0 11/28/18 11:00 97.7 61 18 125/58 (80) 97.7 Labs Last Labs Laboratory Tests Test 11/26/18 16:39 11/26/18 19:27 11/26/18 21:22 11/27/18 07:11 Glucose (Fingerstick) 111 mg/dL (70-99) 85 mg/dL (70-99) 102 mg/dL (70-99) 76 mg/dL (70-99) Test 11/27/18 11:15 11/27/18 16:12 11/27/18 21:40 11/28/18 07:00 Glucose (Fingerstick) 123 mg/dL (70-99) 125 mg/dL (70-99) 78 mg/dL (70-99) White Blood Count 6.3 x10^3/uL (4.0-11.0) Red Blood Count 2.70 x10^6/uL (4.30-5.70) Hemoglobin 8.3 g/dL (13.0-17.5) Hematocrit 25.3 % (39.0-53.0) Mean Corpuscular Volume 94 fL (79-100) Mean Corpuscular Hemoglobin 31 pg (25-35) Mean Corpuscular Hemoglobin Concent 33 g/dL (31-37) Red Cell Distribution Width 19.2 % (11.5-14.5) Platelet Count 92 x10^3/uL (140-400) Neutrophils (%) (Auto) 73 % (31-73) Lymphocytes (%) (Auto) 15 % (24-48) Monocytes (%) (Auto) 9 % (0-9) Eosinophils (%) (Auto) 3 % (0-3) Basophils (%) (Auto) 0 % (0-3) Neutrophils # (Auto) 4.6 x10^3uL (1.8-7.7) Lymphocytes # (Auto) 0.9 x10^3/uL (1.0-4.8) Monocytes # (Auto) 0.6 x10^3/uL (0.0-1.1) Eosinophils # (Auto) 0.2 x10^3/uL (0.0-0.7) Basophils # (Auto) 0.0 x10^3/uL (0.0-0.2) Sodium Level 138 mmol/L (136-145) Potassium Level 6.3 mmol/L (3.5-5.1) Chloride Level 98 mmol/L (98-107) Carbon Dioxide Level 27 mmol/L (21-32) Anion Gap 13 (6-14) Blood Urea Nitrogen 70 mg/dL (8-26) Creatinine 8.1 mg/dL (0.7-1.3) Estimated GFR (Cockcroft-Gault) 7.8 Glucose Level 104 mg/dL (70-99) Calcium Level 8.5 mg/dL (8.5-10.1) Phosphorus Level 5.1 mg/dL (2.6-4.7) Magnesium Level 2.0 mg/dL (1.8-2.4) Creatine Kinase 35 U/L (39-308) Albumin 2.4 g/dL (3.4-5.0) Test 11/28/18 07:23 11/28/18 11:22 Glucose (Fingerstick) 77 mg/dL (70-99) 85 mg/dL (70-99) Laboratory Tests Test 11/27/18 16:12 11/27/18 21:40 11/28/18 07:00 11/28/18 07:23 Glucose (Fingerstick) 125 mg/dL (70-99) 78 mg/dL (70-99) 77 mg/dL (70-99) White Blood Count 6.3 x10^3/uL (4.0-11.0) Red Blood Count 2.70 x10^6/uL (4.30-5.70) Hemoglobin 8.3 g/dL (13.0-17.5) Hematocrit 25.3 % (39.0-53.0) Mean Corpuscular Volume 94 fL (79-100) Mean Corpuscular Hemoglobin 31 pg (25-35) Mean Corpuscular Hemoglobin Concent 33 g/dL (31-37) Red Cell Distribution Width 19.2 % (11.5-14.5) Platelet Count 92 x10^3/uL (140-400) Neutrophils (%) (Auto) 73 % (31-73) Lymphocytes (%) (Auto) 15 % (24-48) Monocytes (%) (Auto) 9 % (0-9) Eosinophils (%) (Auto) 3 % (0-3) Basophils (%) (Auto) 0 % (0-3) Neutrophils # (Auto) 4.6 x10^3uL (1.8-7.7) Lymphocytes # (Auto) 0.9 x10^3/uL (1.0-4.8) Monocytes # (Auto) 0.6 x10^3/uL (0.0-1.1) Eosinophils # (Auto) 0.2 x10^3/uL (0.0-0.7) Basophils # (Auto) 0.0 x10^3/uL (0.0-0.2) Sodium Level 138 mmol/L (136-145) Potassium Level 6.3 mmol/L (3.5-5.1) Chloride Level 98 mmol/L (98-107) Carbon Dioxide Level 27 mmol/L (21-32) Anion Gap 13 (6-14) Blood Urea Nitrogen 70 mg/dL (8-26) Creatinine 8.1 mg/dL (0.7-1.3) Estimated GFR (Cockcroft-Gault) 7.8 Glucose Level 104 mg/dL (70-99) Calcium Level 8.5 mg/dL (8.5-10.1) Phosphorus Level 5.1 mg/dL (2.6-4.7) Magnesium Level 2.0 mg/dL (1.8-2.4) Creatine Kinase 35 U/L (39-308) Albumin 2.4 g/dL (3.4-5.0) Test 11/28/18 11:22 Glucose (Fingerstick) 85 mg/dL (70-99) MONTAGUE,ACHAL K MD Nov 28, 2018 14:32
[2018-11-28] MEDS: MEROPENEM 500 MG in IV NORMAL SALINE 50ML 50 ML IV SCH (18:25)
[2018-11-28 19:00] VITALS: BP 147/66
--- NOTE | 2018-11-28 19:36 | DS ---
DATE OF DISCHARGE: 11/28/2018 ADDENDUM Discharge summary is actually on the chart. He had to stay a couple more days because of [facility] not [facility] accept IV daptomycin and Infectious Disease doctors were deciding which antibiotics to put him on for his infected wound and osteomyelitis involving his right foot. So today is 11/28 and he will be dialyzed today and the antibiotics will be per the Infectious Disease doctor. The platelet counts a little bit lower than 94,000, so we will discontinue the subcutaneous heparin. Continue aspirin and Plavix. Infectious Disease will decide which antibiotics he will go with to halfway facility with hopefully later today after hemodialysis. I discussed the case with the patient and the nurse practitioner, Infectious Disease person Belen, the patient's daughter and also Dr. Wilson, the vascular surgeon. The plan is to treat him with outpatient hyperbaric oxygen treatment at the [facility] and if that does not help heal the wound, he will need to have a right below knee amputation due to poor circulation from the right knee to the right foot. He is not a candidate for any type of further angioplasty or bypass surgery to improve circulation as the anatomy will not support those procedures. Otherwise, his discharge medications are the same. We will be dismissed later today followed by the wound care center and hyperbaric oxygen treatments will be set up too. He will follow up with the vascular surgeon, I think he has got an appointment, 11/30. Follow up with the Infectious Disease doctor. He will receive physical therapy at the halfway facility and wound care. KIMI TIDWELL MD DR: LOBO/dianna JOB#: [id number] / [id number]
[2018-11-28] MEDS: NORMAL SALINE IV SCH (20:45)
[2018-11-28] MEDS: PREGABALIN 50 MG CAPSULE PO SCH (20:45)
[2018-11-28] MEDS: DAPTOMYCIN IV SCH (20:45)
[2018-11-28] MEDS: ATORVASTATIN CALCIUM 40 MG TABLET. PO SCH (20:45)
[2018-11-28 23:00] VITALS: BP 131/63
[2018-11-29 03:00] VITALS: BP 119/51
[2018-11-29 06:25] LABS: ALBUMIN 2.3 g/dL (3.4-5.0); CALCIUM 8.2 mg/dL (8.5-10.1); CREATININE 6.3 mg/dL (0.7-1.3); GFR 10.5; PHOSPHORUS 4.2 mg/dL (2.6-4.7); POTASSIUM 5.4 mmol/L (3.5-5.1)
[2018-11-29 07:00] VITALS: BP 132/64
[2018-11-29] MEDS: INSULIN LISPRO 300 UNITS/3 ML INSULN.PEN. SQ SCH ×3 (08:00→17:00)
[2018-11-29] MEDS: SEVELAMER CARBONATE 800 MG TABLET. PO SCH ×3 (08:21→17:00)
[2018-11-29] MEDS: CARVEDILOL 3.125 MG TABLET. PO SCH ×2 (08:21→18:49)
[2018-11-29] MEDS: CYANOCOBALAMIN (VITAMIN B-12) 1,000 MCG TABLET. PO SCH (08:21)
[2018-11-29] MEDS: LACTOBACILLUS RHAMNOSUS GG 1 CAPSULE. PO SCH ×2 (08:22→20:38)
[2018-11-29] MEDS: CLOPIDOGREL BISULFATE 75 MG TABLET PO SCH (08:22)
[2018-11-29] MEDS: ALLOPURINOL 100 MG TABLET. PO SCH (08:22)
[2018-11-29] MEDS: COLLAGENASE 250 UNIT/GM TOPICAL OINTMENT 30GM TUBE. TP SCH (08:22)
[2018-11-29] MEDS: PANTOPRAZOLE 40 MG TABLET.DR. PO SCH (08:22)
[2018-11-29] MEDS: FOLIC/VIT B COMP W-C (RENAL) TABLET. PO SCH (08:22)
[2018-11-29] MEDS: ASPIRIN CHEWABLE 81 MG TABLET. PO SCH (08:22)
[2018-11-29] MEDS: CHOLECALCIFEROL (VITAMIN D3) 1,000 UNIT TABLET PO SCH (08:22)
[2018-11-29] MEDS: HYDROcodone/APAP 5/325MG 1 TAB TABLET PO PRN ×3 (08:33→20:52)
--- NOTE | 2018-11-29 10:46 | PDOC ---
Infectious Disease Note Subjective Subjective Nausea better but still loose stools last pm Diminished appetite but some better Denies cramps/bloating Denies F/C/S/muscle aches ROS ROS o/w neg Vital Sign Vital Signs Vital Signs Date Time Temp Pulse Resp B/P (MAP) Pulse Ox O2 Delivery O2 Flow Rate FiO2 11/29/18 10:08 Room Air 11/29/18 08:21 61 132/64 11/29/18 07:00 99.5 18 95 99.5 11/29/18 00:30 2.0 Physical Exam PHYSICAL EXAM GENERAL: NAD - in chair HEENT: Oral cavity clear NECK: Supple. LUNGS: Clear HEART: S1, S2 ABDOMEN: Soft, NT, BS present - obese EXTREMITIES: Trace edema; right 1st toe amp site dressed AV fistula NEUROLOGIC: Alert and oriented SKIN: No rash Right SCL (11/10) clean Labs Lab Laboratory Tests Test 11/28/18 11:22 11/28/18 21:24 11/29/18 06:00 11/29/18 07:27 Glucose (Fingerstick) 85 mg/dL (70-99) 80 mg/dL (70-99) 74 mg/dL (70-99) Sodium Level 140 mmol/L (136-145) Potassium Level 5.4 mmol/L (3.5-5.1) Chloride Level 101 mmol/L (98-107) Carbon Dioxide Level 27 mmol/L (21-32) Anion Gap 12 (6-14) Blood Urea Nitrogen 45 mg/dL (8-26) Creatinine 6.3 mg/dL (0.7-1.3) Estimated GFR (Cockcroft-Gault) 10.5 Glucose Level 84 mg/dL (70-99) Calcium Level 8.2 mg/dL (8.5-10.1) Phosphorus Level 4.2 mg/dL (2.6-4.7) Magnesium Level 1.8 mg/dL (1.8-2.4) Albumin 2.3 g/dL (3.4-5.0) Objective Assessment Recent 1 st toe amp with developing gangrene, s/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 (h/o MSSA, Enterobacter and VRE). ESR 90 Right lateral malleolus wound s/p sharp excisional debridement removing necrotic subcutaneous tissue, 11/02. -12/5. Enterobacter aerogenes, Cipro sensitive, VRE (linezolid & Dapto sensistive; PCN resistent) and Gram variable nuria not ID PAD s/p angio 11/03. ESRD/HD Diarrhea/loose stools. C. diff pending Thrombocytopenia - on Zyvox Plan Plan of Care Discharging to [facility] when can be arranged however have issues with cost of Daptomycin and Zyvox causes issue with Thrombocytopenia Continue Dapto and meropenem Soc Service to check cost of Tigecycline as possible option D/c zyvox Repeat CBC in am monitor platelets f/u C. diff results Every Wednesday CBC, ESR, CPK. Fax results to [phone] f/u appt with us in 1-2 weeks f/u with vascular as directed HBO therapy - wound care team following D/w nursing D/w JAYY Robles MD Nov 29, 2018 10:46
--- NOTE | 2018-11-29 10:47 | PDOC ---
PROGRESS NOTES Subjective Subjective says he had diarrhea. stool neg for c. diff toxin. discussed with dr. Prado. has low grade fever. Objective Objective Vital Signs Date Time Temp Pulse Resp B/P (MAP) Pulse Ox O2 Delivery O2 Flow Rate FiO2 11/29/18 10:08 Room Air 11/29/18 08:21 61 132/64 11/29/18 07:00 99.5 18 95 99.5 11/29/18 00:30 2.0 Intake and Output 11/29/18 07:01 Intake Total 830 ml Output Total 200 ml Balance 630 ml Intake Oral 830 ml Output Urine Total 200 ml # Voids 3 # Bowel Movements 5 Physical Exam Abdomen: Soft, Other (obese) Heart: Normal S1, Normal S2 Extremities: No edema, Other (left great toe amputation) General: Alert HEENT: Atraumatic Lungs: Clear to auscultation Neuro: Normal speech Psych/Mental Status: Mental status NL Skin: Other (right ankle wound and right foot wound with dressing) Assessment Assessment necrotic right foot wound osteomyelitis of right great toe and first metatarsal right ankle wound with granulation tissue severe PAD RLE involving tibial and pedal vessels ESRD on hemodialysis m-w-f diabetes mellitus type 2 with peripheral neuropathy morbid obesity debility low grade fever thrombocytopenia suspect due to zyvox Plan Plan of Care continue iv daptomycin and meropenem SNF may not cover daptomycin. discussed with dr. Prado lab tomorrow hemodialysis tomorrow wound care Comment Review of Relevant I have reviewed the following items simeon (where applicable) has been applied. Labs Laboratory Tests Test 11/27/18 11:15 11/27/18 16:12 11/27/18 21:40 11/28/18 07:00 Glucose (Fingerstick) 123 mg/dL (70-99) 125 mg/dL (70-99) 78 mg/dL (70-99) White Blood Count 6.3 x10^3/uL (4.0-11.0) Red Blood Count 2.70 x10^6/uL (4.30-5.70) Hemoglobin 8.3 g/dL (13.0-17.5) Hematocrit 25.3 % (39.0-53.0) Mean Corpuscular Volume 94 fL (79-100) Mean Corpuscular Hemoglobin 31 pg (25-35) Mean Corpuscular Hemoglobin Concent 33 g/dL (31-37) Red Cell Distribution Width 19.2 % (11.5-14.5) Platelet Count 92 x10^3/uL (140-400) Neutrophils (%) (Auto) 73 % (31-73) Lymphocytes (%) (Auto) 15 % (24-48) Monocytes (%) (Auto) 9 % (0-9) Eosinophils (%) (Auto) 3 % (0-3) Basophils (%) (Auto) 0 % (0-3) Neutrophils # (Auto) 4.6 x10^3uL (1.8-7.7) Lymphocytes # (Auto) 0.9 x10^3/uL (1.0-4.8) Monocytes # (Auto) 0.6 x10^3/uL (0.0-1.1) Eosinophils # (Auto) 0.2 x10^3/uL (0.0-0.7) Basophils # (Auto) 0.0 x10^3/uL (0.0-0.2) Sodium Level 138 mmol/L (136-145) Potassium Level 6.3 mmol/L (3.5-5.1) Chloride Level 98 mmol/L (98-107) Carbon Dioxide Level 27 mmol/L (21-32) Anion Gap 13 (6-14) Blood Urea Nitrogen 70 mg/dL (8-26) Creatinine 8.1 mg/dL (0.7-1.3) Estimated GFR (Cockcroft-Gault) 7.8 Glucose Level 104 mg/dL (70-99) Calcium Level 8.5 mg/dL (8.5-10.1) Phosphorus Level 5.1 mg/dL (2.6-4.7) Magnesium Level 2.0 mg/dL (1.8-2.4) Creatine Kinase 35 U/L (39-308) Albumin 2.4 g/dL (3.4-5.0) Test 11/28/18 07:23 11/28/18 09:35 11/28/18 11:22 11/28/18 21:24 Glucose (Fingerstick) 77 mg/dL (70-99) 85 mg/dL (70-99) 80 mg/dL (70-99) Clostridium difficile Toxin B Gene Negative (Negative) Test 11/29/18 06:00 11/29/18 07:27 Sodium Level 140 mmol/L (136-145) Potassium Level 5.4 mmol/L (3.5-5.1) Chloride Level 101 mmol/L (98-107) Carbon Dioxide Level 27 mmol/L (21-32) Anion Gap 12 (6-14) Blood Urea Nitrogen 45 mg/dL (8-26) Creatinine 6.3 mg/dL (0.7-1.3) Estimated GFR (Cockcroft-Gault) 10.5 Glucose Level 84 mg/dL (70-99) Calcium Level 8.2 mg/dL (8.5-10.1) Phosphorus Level 4.2 mg/dL (2.6-4.7) Magnesium Level 1.8 mg/dL (1.8-2.4) Albumin 2.3 g/dL (3.4-5.0) Glucose (Fingerstick) 74 mg/dL (70-99) Laboratory Tests Test 11/28/18 11:22 11/28/18 21:24 11/29/18 06:00 11/29/18 07:27 Glucose (Fingerstick) 85 mg/dL (70-99) 80 mg/dL (70-99) 74 mg/dL (70-99) Sodium Level 140 mmol/L (136-145) Potassium Level 5.4 mmol/L (3.5-5.1) Chloride Level 101 mmol/L (98-107) Carbon Dioxide Level 27 mmol/L (21-32) Anion Gap 12 (6-14) Blood Urea Nitrogen 45 mg/dL (8-26) Creatinine 6.3 mg/dL (0.7-1.3) Estimated GFR (Cockcroft-Gault) 10.5 Glucose Level 84 mg/dL (70-99) Calcium Level 8.2 mg/dL (8.5-10.1) Phosphorus Level 4.2 mg/dL (2.6-4.7) Magnesium Level 1.8 mg/dL (1.8-2.4) Albumin 2.3 g/dL (3.4-5.0) Medications Current Medications Acetaminophen (Tylenol) 325 mg PRN Q4HRS PRN PO MILD PAIN / TEMP; Start at 20:30 Allopurinol (Zyloprim) 100 mg DAILY PO Last administered on 11/29/18 08:22; Start 11/25/18 at 09:00 Aspirin (Children'S Aspirin) 81 mg DAILY PO Last administered on 11/29/18 08:22 ; Start 11/25/18 at 09:00 Atorvastatin Calcium (Lipitor) 40 mg HS PO Last administered on 11/28/18 20: 45; Start 11/24/18 at 21:00 Carvedilol (Coreg) 3.125 mg BIDWMEALS PO Last administered on 11/29/18 08:21; Start 11/24/18 at 21:00 Vitamin D (Vitamin D3) 1,000 unit DAILY PO Last administered on 11/29/18 08:22 ; Start 11/25/18 at 09:00 Clopidogrel Bisulfate (Plavix) 75 mg DAILY PO Last administered on 11/29/18 08: 22; Start 11/25/18 at 09:00 Cyanocobalamin (Vitamin B-12) 1,000 mcg DAILY PO Last administered on 11/29/18 08:21; Start 11/25/18 at 09:00 Acetaminophen/ Hydrocodone Bitart (Lortab 5/325) 1 tab PRN Q4HRS PRN PO MODERATE - SEVERE PAIN Last administered on 11/29/18 08:33; Start 11/24/18 at 20:30 Pregabalin (Lyrica) 50 mg HS PO Last administered on 11/28/18at 20:45; Start 11/24/18 at 21:00 Sevelamer Carbonate (Renvela) 800 mg TIDWMEALS PO Last administered on 08:21; Start 11/25/18 at 08:00 Vitamin B Complex/ Vitamin C (Krista-Beatriz) 1 tab DAILY PO Last administered on 08:22; Start 11/25/18 at 09:00 Lactobacillus Rhamnosus (Culturelle) 1 cap BID PO Last administered on 08:22; Start 11/24/18 at 21:00 Pantoprazole Sodium (Protonix) 40 mg DAILYAC PO Last administered on 11/29/18 08:22; Start 11/25/18 at 07:30 Insulin Human Lispro (HumaLOG) 0-5 UNITS TIDWMEALS SQ ; Start 11/24/18 at 21:00 ; Stop 11/24/18 at 21:57; Status DC Dextrose (Dextrose 50%-Water Syringe) 12.5 gm PRN Q15MIN PRN IV SEE COMMENTS; Start 11/24/18 at 20:45 Insulin Human Lispro (HumaLOG) 0-5 UNITS TIDWMEALS SQ ; Start 11/25/18 at 08:00 ; Stop 11/25/18 at 08:00; Status DC Insulin Human Lispro (HumaLOG) 0-5 UNITS BG 300-39... TIDWMEALS SQ ; Start at 08:00 Collagenase (Santyl) 1 judi DAILY TP Last administered on 11/29/18at 08:22; Start 11/25/18 at 10:00 Meropenem 500 mg/ Sodium Chloride 50 ml @ 100 mls/hr Q12HR IV ; Start at 21:00; Status UNV Daptomycin 690 mg/ Sodium Chloride 50 ml @ 100 mls/hr MoWeFr@1600 IV Last administered on 11/28/18at 20:45; Start 11/25/18 at 16:00 Heparin Sodium (Porcine) (Heparin Sodium) 5,000 unit Q12HR SQ Last administered on 11/27/18at 20:28; Start 11/25/18 at 21:00; Stop 11/28/18 at 09 :44; Status DC Meropenem 500 mg/ Sodium Chloride 50 ml @ 100 mls/hr DAILY16 IV Last administered on 11/28/18at 18:25; Start 11/25/18 at 16:00 Linezolid (Zyvox) 600 mg BID PO Last administered on 11/28/18at 08:48; Start 11/25/18 at 11:00; Stop 11/28/18 at 10:04; Status DC Info (PHARMACY MONITORING -- do not chart) 1 each PRN DAILY PRN MC SEE COMMENTS ; Start 11/25/18 at 10:45; Stop 11/28/18 at 17:07; Status DC Sodium Chloride 1,000 ml @ 1,000 mls/hr Q1H PRN IV hypotension; Start at 14:30; Stop 11/25/18 at 20:30; Status DC Sodium Chloride 1,000 ml @ 400 mls/hr Q2H30M PRN IV PATENCY; Start 11/25/18 at 14:30; Stop 11/25/18 at 20:30; Status DC Info (PHARMACY MONITORING -- do not chart) 1 each PRN DAILY PRN MC SEE COMMENTS ; Start 11/25/18 at 14:45; Status UNV Info (PHARMACY MONITORING -- do not chart) 1 each PRN DAILY PRN MC SEE COMMENTS ; Start 11/25/18 at 14:45; Status UNV Ondansetron HCl (Zofran Odt) 4 mg PRN Q6HRS PRN PO NAUSEA/VOMITING Last administered on 11/28/18at 18:25; Start 11/27/18 at 02:15 Magnesium Sulfate 50 ml @ 25 mls/hr PRN DAILY PRN IV for Mag < 1.7 on am labs; Start 11/27/18 at 14:00 Sodium Chloride 1,000 ml @ 1,000 mls/hr Q1H PRN IV hypotension; Start at 09:05; Stop 11/28/18 at 15:04; Status DC Albumin Human 200 ml @ 200 mls/hr 1X PRN PRN IV Hypotension; Start 11/28/18 at 09:15; Stop 11/28/18 at 15:14; Status DC Sodium Chloride 1,000 ml @ 400 mls/hr Q2H30M PRN IV PATENCY; Start 11/28/18 at 09:05; Stop 11/28/18 at 21:04; Status DC Info (PHARMACY MONITORING -- do not chart) 1 each PRN DAILY PRN MC SEE COMMENTS ; Start 11/28/18 at 09:15; Stop 11/28/18 at 17:07; Status DC Info (PHARMACY MONITORING -- do not chart) 1 each PRN DAILY PRN MC SEE COMMENTS ; Start 11/28/18 at 09:15 Active Scripts Active Zofran (Ondansetron Hcl) 4 Mg Tablet 1 Tab PO Q6HRS Zyvox (Linezolid) 600 Mg Tablet 600 Mg PO BID 30 Days Hydrocodone-Apap 5-325 (Hydrocodone Bit/Acetaminophen) 1 Tab Tablet 1 Tab PO PRN Q4HRS PRN 30 Days Aspirin Ec (Aspirin) 81 Mg Tablet. 81 Mg PO DAILYWBKFT 30 Days [Pantoprazole] 40 MG Tablet. 40 Mg PO DAILYAC 30 Days Humalog (Insulin Lispro) 100 Unit/1 Ml Insuln.pen 0 Units SQ TIDWMEALS 30 Days BG 150-199= 1 units 200-299= 2 units 300-399= 4 units 400-499= 6 units ac tid sliding scale Culturelle (Lactobacillus Rhamnosus Gg) 1 Each Cap.sprink 1 Cap PO BID 30 Days Tylenol (Acetaminophen) 325 Mg Tablet 325 Mg PO PRN Q4HRS PRN 30 Days Carvedilol (Carvedilol) 3.125 Mg Tablet 3.125 Mg PO BIDWMEALS 30 Days Renvela (Sevelamer Carbonate) 800 Mg Tablet 800 Mg PO TIDWMEALS 30 Days Pantoprazole Sodium 40 Mg Tablet.dr 40 Mg PO DAILYAC 30 Days Krista-Beatriz Tablet (Folic Acid/Vitamin B Comp W-C) 0.8 Mg Tablet 1 Tab PO DAILY 30 Days Reported Vitamin B-12 (Cyanocobalamin (Vitamin B-12)) 1,000 Mcg Tablet 1 Tab PO DAILY Allopurinol 100 Mg Tablet 1 Tab PO DAILY Renal Caps Softgel (Folic Acid/Vitamin B Comp W-C) 1 Mg Capsule 1 Cap PO DAILY Acidophilus Lactobacilli (Lactobacillus Acidophilus) 1 Each Capsule 1 Each PO BID Protonix (Pantoprazole Sodium) 20 Mg Tablet.dr 40 Mg PO DAILY Renvela (Sevelamer Carbonate) 800 Mg Tablet 800 Mg PO TIDWMEALS Lyrica (Pregabalin) 50 Mg Capsule 50 Mg PO HS Tylenol (Acetaminophen) 325 Mg Tablet 1 Tab PO PRN Q4HRS Hydrocodone-Apap 5-325 (Hydrocodone Bit/Acetaminophen) 1 Tab Tablet 1 Tab PO PRN Q4HRS PRN Aspirin 81 Mg Tab.chew 81 Mg PO DAILY Carvedilol (Carvedilol) 3.125 Mg Tablet 3.125 Mg PO BIDWMEALS Lipitor (Atorvastatin Calcium) 40 Mg Tablet 40 Mg PO HS Clopidogrel (Clopidogrel Bisulfate) 75 Mg Tablet 75 Mg PO DAILY Vitamin D (Cholecalciferol (Vitamin D3)) 2,000 Unit Capsule 1 Cap PO DAILY Camp 5-325 Tablet (Acetaminophen/Hydrocodone Bitart) 1 Each Tablet 1 Tab PO PRN Q4HRS PRN Lyrica (Pregabalin) 50 Mg Capsule 25 Mg PO HS Clopidogrel (Clopidogrel Bisulfate) 75 Mg Tablet 1 Tab PO DAILY Atorvastatin Calcium 40 Mg Tablet 40 Mg PO HS Allopurinol 100 Mg Tablet 1 Tab PO DAILY Vitamin B-12 (Cyanocobalamin (Vitamin B-12)) 1,000 Mcg Tablet 1 Tab PO DAILY Vitamin D-3 (Cholecalciferol (Vitamin D3)) 2,000 Unit Capsule 1,000 Unit PO DAILY Vitals/I & O Vital Sign - Last 24 Hours 11/28/18 11/28/18 11/28/18 11/28/18 11:00 19:00 20:00 23:00 Temp 97.7 97.8 99.9 97.7 97.8 99.9 Pulse 61 64 62 Resp 18 20 20 B/P (MAP) 125/58 (80) 147/66 (93) 131/63 (85) Pulse Ox 100 98 99 O2 Delivery 2L PRN Room Air Room Air Room Air O2 Flow Rate 2.0 11/28/18 11/29/18 11/29/18 11/29/18 23:30 00:30 03:00 07:00 Temp 99.6 99.5 99.6 99.5 Pulse 63 61 Resp 20 18 B/P (MAP) 119/51 (73) 132/64 (86) Pulse Ox 98 98 98 95 O2 Delivery Room Air Room Air Room Air O2 Flow Rate 2.0 2.0 11/29/18 11/29/18 11/29/18 11/29/18 08:00 08:21 08:33 10:08 Pulse 61 B/P (MAP) 132/64 O2 Delivery Room Air Room Air Room Air Intake and Output 11/28/18 11/28/18 11/29/18 15:01 23:01 07:01 Intake Total 600 ml 30 ml 200 ml Output Total 200 ml Balance 600 ml -170 ml 200 ml KIMI TIDWELL MD Nov 29, 2018 10:47
[2018-11-29 11:00] VITALS: BP 109/52
--- NOTE | 2018-11-29 14:26 | PDOC ---
SUBJECTIVE ROS Follow-up for ESRD Pt reports he has ongoing diarrhea. CVS: no Orthopnea, no CP RESP: no SOB, no HUGGINS GI: no Nausea, no Vomiting : no Dysuria, no Urgency OBJECTIVE Vital Signs Vital Signs Date Time Temp Pulse Resp B/P (MAP) Pulse Ox O2 Delivery O2 Flow Rate FiO2 11/29/18 13:51 Room Air 11/29/18 11:00 99.3 62 18 109/52 (71) 96 99.3 11/29/18 00:30 2.0 I & 0 Intake and Output 11/29/18 07:01 Intake Total 830 ml Output Total 200 ml Balance 630 ml Intake Oral 830 ml Output Urine Total 200 ml # Voids 3 # Bowel Movements 5 PHYSICAL EXAM Physical Exam GEN: Awake, Oriented x 2- 3, In no distress EYES: Vision Unchanged, Conjunctiva Normal EN: No EN Drainage, Mucous Membranes moist NECK: no JVD, no JVP, Supple, no Thyromegaly; short thick CVS: S1S2, no Murmur, No Gallop, No Rub,no Edema RESP: no Rales, no Rhonchi,no Acc. Muscle Use GI: BS + ve, NO Bruit, Non Tender, Non Distended : no CVA tenderness, no Suprapubic Tenderness DIAGNOSIS/ASSESSMENT Assessment & Plan ESRD: We'll proceed with short run of dialysis today due to persistent hyperkalemia. Dialysis as below F 180 NR 2.0 Hrs 2 K 2.5 Ca 140 Na 35 HC03 Qb 350 + Qd 500+ Heparin 0 Units Uf 0 Kgs or to dry weight as tolerated May give 25-50 gms of 25% Albumin if needed to maintain Hemodynamic stability Treatment plan reviewed and discussed with social media marketing analyst Hyperkalemia from yesterday: It is better today but not back to normal yet. Unclear etiology of the same. Will order ultrasound of his shunt. CPK was normal previously. No obviously incriminating medications are noted ANEMIA; Aranesp as ordered, Transfuse with next HD as needed HTN: Current BP meds as reviewed. See orders for changes. BONE & MINERAL: Follow phosphorus levels and alter binder regimen as needed. Right foot wound: Antibiotics as an outpatient are being set up. We'll attempt to coordinate this with dialysis as an outpatient if possible Discussed Plan of Care with family at bedside over the phone COMMENT/RELEVANT DATA Meds Current Medications Medications (Trade) Dose Ordered Sig/Bhavesh Start Time Stop Time Status Last Admin Dose Admin Acetaminophen (Tylenol) 325 mg PRN Q4HRS PRN 11/24/18 20:30 Acetaminophen/ Hydrocodone Bitart (Lortab 5/325) 1 tab PRN Q4HRS PRN 11/24/18 20:30 11/29/18 12:44 1 TAB Albumin Human 200 ml @ 200 mls/hr 1X PRN PRN 11/28/18 09:15 11/28/18 15:14 DC Allopurinol (Zyloprim) 100 mg DAILY 11/25/18 09:00 11/29/18 08:22 100 MG Aspirin (Children'S Aspirin) 81 mg DAILY 11/25/18 09:00 11/29/18 08:22 81 MG Atorvastatin Calcium (Lipitor) 40 mg HS 11/24/18 21:00 11/28/18 20:45 40 MG Carvedilol (Coreg) 3.125 mg BIDWMEALS 11/24/18 21:00 11/29/18 08:21 3.125 MG Clopidogrel Bisulfate (Plavix) 75 mg DAILY 11/25/18 09:00 11/29/18 08:22 75 MG Collagenase (Santyl) 1 judi DAILY 11/25/18 10:00 11/29/18 08:22 1 JUDI Cyanocobalamin (Vitamin B-12) 1,000 mcg DAILY 11/25/18 09:00 11/29/18 08:21 1,000 MCG Daptomycin 690 mg/ Sodium Chloride 50 ml @ 100 mls/hr MoWeFr@1600 11/25/18 16:00 11/28/18 20:45 100 MLS/HR Dextrose (Dextrose 50%-Water Syringe) 12.5 gm PRN Q15MIN PRN 11/24/18 20:45 Heparin Sodium (Porcine) (Heparin Sodium) 5,000 unit Q12HR 11/25/18 21:00 11/28/18 09:44 DC 11/27/18 20:28 5,000 UNIT Info (PHARMACY MONITORING -- do not chart) 1 each PRN DAILY PRN 11/28/18 09:15 Insulin Human Lispro (HumaLOG) 0-5 UNITS BG 300-39... TIDWMEALS 11/25/18 08:00 Lactobacillus Rhamnosus (Culturelle) 1 cap BID 11/24/18 21:00 11/29/18 08:22 1 CAP Linezolid (Zyvox) 600 mg BID 11/25/18 11:00 11/28/18 10:04 DC 11/28/18 08:48 600 MG Magnesium Sulfate 50 ml @ 25 mls/hr PRN DAILY PRN 11/27/18 14:00 Meropenem 500 mg/ Sodium Chloride 50 ml @ 100 mls/hr DAILY16 11/25/18 16:00 11/28/18 18:25 100 MLS/HR Ondansetron HCl (Zofran Odt) 4 mg PRN Q6HRS PRN 11/27/18 02:15 11/28/18 18:25 4 MG Pantoprazole Sodium (Protonix) 40 mg DAILYAC 11/25/18 07:30 11/29/18 08:22 40 MG Pregabalin (Lyrica) 50 mg HS 11/24/18 21:00 11/28/18 20:45 50 MG Sevelamer Carbonate (Renvela) 800 mg TIDWMEALS 11/25/18 08:00 11/29/18 12:44 800 MG Sodium Chloride 1,000 ml @ 400 mls/hr Q2H30M PRN 11/28/18 09:05 11/28/18 21:04 DC Vitamin B Complex/ Vitamin C (Krista-Beatriz) 1 tab DAILY 11/25/18 09:00 11/29/18 08:22 1 TAB Vitamin D (Vitamin D3) 1,000 unit DAILY 11/25/18 09:00 11/29/18 08:22 1,000 UNIT Lab Laboratory Tests Test 11/28/18 21:24 11/29/18 06:00 11/29/18 07:27 11/29/18 10:58 Glucose (Fingerstick) 80 mg/dL (70-99) 74 mg/dL (70-99) 114 mg/dL (70-99) Sodium Level 140 mmol/L (136-145) Potassium Level 5.4 mmol/L (3.5-5.1) Chloride Level 101 mmol/L (98-107) Carbon Dioxide Level 27 mmol/L (21-32) Anion Gap 12 (6-14) Blood Urea Nitrogen 45 mg/dL (8-26) Creatinine 6.3 mg/dL (0.7-1.3) Estimated GFR (Cockcroft-Gault) 10.5 Glucose Level 84 mg/dL (70-99) Calcium Level 8.2 mg/dL (8.5-10.1) Phosphorus Level 4.2 mg/dL (2.6-4.7) Magnesium Level 1.8 mg/dL (1.8-2.4) Albumin 2.3 g/dL (3.4-5.0) Results All relevant outside records, renal labs, imaging studies, telemetry/EKG's were reviewed. JANAE MONTAGUE MD Nov 29, 2018 14:26
[2018-11-29 15:00] VITALS: BP 124/62
[2018-11-29] MEDS ORDERED: IV NORMAL SALINE 1000ML BAG 1,000 ML IV PRN (16:30)
[2018-11-29] MEDS ORDERED: DIALYSIS PATIENT. MC PRN ×2 (16:45)
[2018-11-29] MEDS: MEROPENEM 500 MG in IV NORMAL SALINE 50ML 50 ML IV SCH (18:48)
[2018-11-29 19:00] VITALS: BP 118/59
[2018-11-29] MEDS: PREGABALIN 50 MG CAPSULE PO SCH (20:37)
[2018-11-29] MEDS: ATORVASTATIN CALCIUM 40 MG TABLET. PO SCH (20:38)
[2018-11-29 23:00] VITALS: BP 111/57
[2018-11-30] VITALS (7 sets, daily range): BP systolic 96–141; BP diastolic 42–65
[2018-11-30 05:32] LABS: BASO % 0 % (0-3); EOS # 0.2 x10^3/uL (0.0-0.7); EOS % 5 % (0-3); HEMOGLOBIN 7.7 g/dL (13.0-17.5); LYMPH # 1.1 x10^3/uL (1.0-4.8); LYMPH % 23 % (24-48); MEAN CORPUSCULAR HEMOGLOBIN 31 pg (25-35); MEAN CORPUSCULAR HGB CONC 34 g/dL (31-37); MEAN CORPUSCULAR VOLUME 92 fL (79-100); MONO # 0.5 x10^3/uL (0.0-1.1); MONO % 11 % (0-9); NEUT % 62 % (31-73); PLATELET COUNT 71 x10^3/uL (140-400); RED BLOOD COUNT 2.49 x10^6/uL (4.30-5.70); WHITE BLOOD COUNT 4.9 x10^3/uL (4.0-11.0)
[2018-11-30 05:52] LABS: ALBUMIN 2.1 g/dL (3.4-5.0); CALCIUM 8.2 mg/dL (8.5-10.1); CREATININE 6.1 mg/dL (0.7-1.3); GFR 10.9; POTASSIUM 4.6 mmol/L (3.5-5.1)
[2018-11-30] MEDS: CARVEDILOL 3.125 MG TABLET. PO SCH (08:00)
[2018-11-30] MEDS: INSULIN LISPRO 300 UNITS/3 ML INSULN.PEN. SQ SCH ×3 (08:00→17:00)
--- NOTE | 2018-11-30 08:15 | RAD ---
Right upper extremity arterial ultrasound November 29, 2018 INDICATION: Arteriovenous shunt with dialysis on 11/29/2018. COMPARISON: None available TECHNIQUE: Sonographic evaluation of the right upper extremity arteriovenous shunt was performed utilizing grayscale, color Doppler and spectral waveform analysis. FINDINGS: The proximal right cephalic vein is patent with normal color Doppler and spectral analysis. Distal right subclavian vein is patent. Right brachial artery is normal in caliber, patent with normal spectral analysis and waveform. Findings are most suggestive of a brachial artery cephalic vein arteriovenous fistula with peak systolic velocity measuring 511 cm/s. No thrombus is identified. 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 Electronically signed by: Radha Gonzalez MD (11/30/2018 8:10 AM) [id number]
[2018-11-30] MEDS ORDERED: DIALYSIS PATIENT. MC PRN (08:30)
[2018-11-30] MEDS: CYANOCOBALAMIN (VITAMIN B-12) 1,000 MCG TABLET. PO SCH (08:57)
[2018-11-30] MEDS: SEVELAMER CARBONATE 800 MG TABLET. PO SCH ×3 (08:57→20:18)
[2018-11-30] MEDS: CLOPIDOGREL BISULFATE 75 MG TABLET PO SCH (08:57)
[2018-11-30] MEDS: LACTOBACILLUS RHAMNOSUS GG 1 CAPSULE. PO SCH ×2 (08:58→20:18)
[2018-11-30] MEDS: CHOLECALCIFEROL (VITAMIN D3) 1,000 UNIT TABLET PO SCH (08:58)
[2018-11-30] MEDS: PANTOPRAZOLE 40 MG TABLET.DR. PO SCH (08:59)
[2018-11-30] MEDS: ASPIRIN CHEWABLE 81 MG TABLET. PO SCH (08:59)
[2018-11-30] MEDS: FOLIC/VIT B COMP W-C (RENAL) TABLET. PO SCH (08:59)
[2018-11-30] MEDS: ALLOPURINOL 100 MG TABLET. PO SCH (08:59)
[2018-11-30] MEDS: COLLAGENASE 250 UNIT/GM TOPICAL OINTMENT 30GM TUBE. TP SCH (09:00)
--- NOTE | 2018-11-30 09:59 | PDOC ---
PROGRESS NOTES Subjective Subjective lab reviewed. platelet count 71K and magnesium low 1.7. will order iv magnesium today and monitor platelets. takes aspirin and plavix and will hold if platelet count less than 50K. no bleeding. discussed with ID BINDER AND BOX BUILDER and trying to find an antibiotic that SNF will accept as daptomycin is too expensive for SNF to accept. no new complaints. Objective Objective Vital Signs Date Time Temp Pulse Resp B/P (MAP) Pulse Ox O2 Delivery O2 Flow Rate FiO2 11/30/18 08:00 42 109/50 11/30/18 07:00 97.7 18 90 2L PRN 97.7 11/30/18 03:00 2.0 Intake and Output 11/30/18 07:01 Intake Total 650 ml Output Total 550 ml Balance 100 ml Intake Oral 600 ml IV Total 50 ml Output Urine Total 550 ml # Voids 2 # Bowel Movements 1 Physical Exam Abdomen: Soft, Other (obese) Heart: Normal S1, Normal S2 Extremities: No edema, Other (left great toe amputation. right ankle and right foot wound) General: Alert HEENT: Atraumatic Lungs: Clear to auscultation Neuro: Normal speech Psych/Mental Status: Mood NL Skin: No rashes Assessment Assessment necrotic right foot wound osteomyelitis of right great toe and first metatarsal right ankle wound with granulation tissue severe PAD RLE involving tibial and pedal vessels ESRD on hemodialysis m-w-f diabetes mellitus type 2 with peripheral neuropathy morbid obesity debility hypomagnesemia thrombocytopenia suspect due to zyvox Plan Plan of Care antibiotics per ID hemodialysis today iv magnesium today wound care iv daptomycin and meropenem but SNF wont accept daptomycin due to expense monitor platelet count Comment Review of Relevant I have reviewed the following items simeon (where applicable) has been applied. Labs Laboratory Tests Test 11/28/18 11:22 11/28/18 21:24 11/29/18 06:00 11/29/18 07:27 Glucose (Fingerstick) 85 mg/dL (70-99) 80 mg/dL (70-99) 74 mg/dL (70-99) Sodium Level 140 mmol/L (136-145) Potassium Level 5.4 mmol/L (3.5-5.1) Chloride Level 101 mmol/L (98-107) Carbon Dioxide Level 27 mmol/L (21-32) Anion Gap 12 (6-14) Blood Urea Nitrogen 45 mg/dL (8-26) Creatinine 6.3 mg/dL (0.7-1.3) Estimated GFR (Cockcroft-Gault) 10.5 Glucose Level 84 mg/dL (70-99) Calcium Level 8.2 mg/dL (8.5-10.1) Phosphorus Level 4.2 mg/dL (2.6-4.7) Magnesium Level 1.8 mg/dL (1.8-2.4) Albumin 2.3 g/dL (3.4-5.0) Test 11/29/18 10:58 11/29/18 20:16 11/30/18 05:10 11/30/18 07:46 Glucose (Fingerstick) 114 mg/dL (70-99) 108 mg/dL (70-99) 104 mg/dL (70-99) White Blood Count 4.9 x10^3/uL (4.0-11.0) Red Blood Count 2.49 x10^6/uL (4.30-5.70) Hemoglobin 7.7 g/dL (13.0-17.5) Hematocrit 23.0 % (39.0-53.0) Mean Corpuscular Volume 92 fL (79-100) Mean Corpuscular Hemoglobin 31 pg (25-35) Mean Corpuscular Hemoglobin Concent 34 g/dL (31-37) Red Cell Distribution Width 19.0 % (11.5-14.5) Platelet Count 71 x10^3/uL (140-400) Neutrophils (%) (Auto) 62 % (31-73) Lymphocytes (%) (Auto) 23 % (24-48) Monocytes (%) (Auto) 11 % (0-9) Eosinophils (%) (Auto) 5 % (0-3) Basophils (%) (Auto) 0 % (0-3) Neutrophils # (Auto) 3.0 x10^3uL (1.8-7.7) Lymphocytes # (Auto) 1.1 x10^3/uL (1.0-4.8) Monocytes # (Auto) 0.5 x10^3/uL (0.0-1.1) Eosinophils # (Auto) 0.2 x10^3/uL (0.0-0.7) Basophils # (Auto) 0.0 x10^3/uL (0.0-0.2) Sodium Level 139 mmol/L (136-145) Potassium Level 4.6 mmol/L (3.5-5.1) Chloride Level 101 mmol/L (98-107) Carbon Dioxide Level 29 mmol/L (21-32) Anion Gap 9 (6-14) Blood Urea Nitrogen 38 mg/dL (8-26) Creatinine 6.1 mg/dL (0.7-1.3) Estimated GFR (Cockcroft-Gault) 10.9 Glucose Level 107 mg/dL (70-99) Calcium Level 8.2 mg/dL (8.5-10.1) Phosphorus Level 4.0 mg/dL (2.6-4.7) Magnesium Level 1.7 mg/dL (1.8-2.4) Albumin 2.1 g/dL (3.4-5.0) Laboratory Tests Test 11/29/18 10:58 11/29/18 20:16 11/30/18 05:10 11/30/18 07:46 Glucose (Fingerstick) 114 mg/dL (70-99) 108 mg/dL (70-99) 104 mg/dL (70-99) White Blood Count 4.9 x10^3/uL (4.0-11.0) Red Blood Count 2.49 x10^6/uL (4.30-5.70) Hemoglobin 7.7 g/dL (13.0-17.5) Hematocrit 23.0 % (39.0-53.0) Mean Corpuscular Volume 92 fL (79-100) Mean Corpuscular Hemoglobin 31 pg (25-35) Mean Corpuscular Hemoglobin Concent 34 g/dL (31-37) Red Cell Distribution Width 19.0 % (11.5-14.5) Platelet Count 71 x10^3/uL (140-400) Neutrophils (%) (Auto) 62 % (31-73) Lymphocytes (%) (Auto) 23 % (24-48) Monocytes (%) (Auto) 11 % (0-9) Eosinophils (%) (Auto) 5 % (0-3) Basophils (%) (Auto) 0 % (0-3) Neutrophils # (Auto) 3.0 x10^3uL (1.8-7.7) Lymphocytes # (Auto) 1.1 x10^3/uL (1.0-4.8) Monocytes # (Auto) 0.5 x10^3/uL (0.0-1.1) Eosinophils # (Auto) 0.2 x10^3/uL (0.0-0.7) Basophils # (Auto) 0.0 x10^3/uL (0.0-0.2) Sodium Level 139 mmol/L (136-145) Potassium Level 4.6 mmol/L (3.5-5.1) Chloride Level 101 mmol/L (98-107) Carbon Dioxide Level 29 mmol/L (21-32) Anion Gap 9 (6-14) Blood Urea Nitrogen 38 mg/dL (8-26) Creatinine 6.1 mg/dL (0.7-1.3) Estimated GFR (Cockcroft-Gault) 10.9 Glucose Level 107 mg/dL (70-99) Calcium Level 8.2 mg/dL (8.5-10.1) Phosphorus Level 4.0 mg/dL (2.6-4.7) Magnesium Level 1.7 mg/dL (1.8-2.4) Albumin 2.1 g/dL (3.4-5.0) Medications Current Medications Acetaminophen (Tylenol) 325 mg PRN Q4HRS PRN PO MILD PAIN / TEMP; Start at 20:30 Allopurinol (Zyloprim) 100 mg DAILY PO Last administered on 11/30/18 08:59; Start 11/25/18 at 09:00 Aspirin (Children'S Aspirin) 81 mg DAILY PO Last administered on 11/30/18 08:59 ; Start 11/25/18 at 09:00 Atorvastatin Calcium (Lipitor) 40 mg HS PO Last administered on 11/29/18 20:38 ; Start 11/24/18 at 21:00 Carvedilol (Coreg) 3.125 mg BIDWMEALS PO Last administered on 11/29/18 18:49; Start 11/24/18 at 21:00 Vitamin D (Vitamin D3) 1,000 unit DAILY PO Last administered on 11/30/18 08:58 ; Start 11/25/18 at 09:00 Clopidogrel Bisulfate (Plavix) 75 mg DAILY PO Last administered on 11/30/18 08: 57; Start 11/25/18 at 09:00 Cyanocobalamin (Vitamin B-12) 1,000 mcg DAILY PO Last administered on 11/30/18 08:57; Start 11/25/18 at 09:00 Acetaminophen/ Hydrocodone Bitart (Lortab 5/325) 1 tab PRN Q4HRS PRN PO MODERATE - SEVERE PAIN Last administered on 11/29/18 20:52; Start 11/24/18 at 20:30 Pregabalin (Lyrica) 50 mg HS PO Last administered on 11/29/18 20:37; Start at 21:00 Sevelamer Carbonate (Renvela) 800 mg TIDWMEALS PO Last administered on 08:57; Start 11/25/18 at 08:00 Vitamin B Complex/ Vitamin C (Krista-Beatriz) 1 tab DAILY PO Last administered on 08:59; Start 11/25/18 at 09:00 Lactobacillus Rhamnosus (Culturelle) 1 cap BID PO Last administered on 08:58; Start 11/24/18 at 21:00 Pantoprazole Sodium (Protonix) 40 mg DAILYAC PO Last administered on 11/30/18 08:59; Start 11/25/18 at 07:30 Insulin Human Lispro (HumaLOG) 0-5 UNITS TIDWMEALS SQ ; Start 11/24/18 at 21:00 ; Stop 11/24/18 at 21:57; Status DC Dextrose (Dextrose 50%-Water Syringe) 12.5 gm PRN Q15MIN PRN IV SEE COMMENTS; Start 11/24/18 at 20:45 Insulin Human Lispro (HumaLOG) 0-5 UNITS TIDWMEALS SQ ; Start 11/25/18 at 08:00 ; Stop 11/25/18 at 08:00; Status DC Insulin Human Lispro (HumaLOG) 0-5 UNITS BG 300-39... TIDWMEALS SQ ; Start at 08:00 Collagenase (Santyl) 1 judi DAILY TP Last administered on 11/30/18 09:00; Start 11/25/18 at 10:00 Meropenem 500 mg/ Sodium Chloride 50 ml @ 100 mls/hr Q12HR IV ; Start at 21:00; Status UNV Daptomycin 690 mg/ Sodium Chloride 50 ml @ 100 mls/hr MoWeFr@1600 IV Last administered on 11/28/18at 20:45; Start 11/25/18 at 16:00 Heparin Sodium (Porcine) (Heparin Sodium) 5,000 unit Q12HR SQ Last administered on 11/27/18at 20:28; Start 11/25/18 at 21:00; Stop 11/28/18 at 09 :44; Status DC Meropenem 500 mg/ Sodium Chloride 50 ml @ 100 mls/hr DAILY16 IV Last administered on 11/29/18at 18:48; Start 11/25/18 at 16:00 Linezolid (Zyvox) 600 mg BID PO Last administered on 11/28/18at 08:48; Start 11/25/18 at 11:00; Stop 11/28/18 at 10:04; Status DC Info (PHARMACY MONITORING -- do not chart) 1 each PRN DAILY PRN MC SEE COMMENTS ; Start 11/25/18 at 10:45; Stop 11/28/18 at 17:07; Status DC Sodium Chloride 1,000 ml @ 1,000 mls/hr Q1H PRN IV hypotension; Start at 14:30; Stop 11/25/18 at 20:30; Status DC Sodium Chloride 1,000 ml @ 400 mls/hr Q2H30M PRN IV PATENCY; Start 11/25/18 at 14:30; Stop 11/25/18 at 20:30; Status DC Info (PHARMACY MONITORING -- do not chart) 1 each PRN DAILY PRN MC SEE COMMENTS ; Start 11/25/18 at 14:45; Status UNV Info (PHARMACY MONITORING -- do not chart) 1 each PRN DAILY PRN MC SEE COMMENTS ; Start 11/25/18 at 14:45; Status UNV Ondansetron HCl (Zofran Odt) 4 mg PRN Q6HRS PRN PO NAUSEA/VOMITING Last administered on 11/28/18at 18:25; Start 11/27/18 at 02:15 Magnesium Sulfate 50 ml @ 25 mls/hr PRN DAILY PRN IV for Mag < 1.7 on am labs; Start 11/27/18 at 14:00 Sodium Chloride 1,000 ml @ 1,000 mls/hr Q1H PRN IV hypotension; Start at 09:05; Stop 11/28/18 at 15:04; Status DC Albumin Human 200 ml @ 200 mls/hr 1X PRN PRN IV Hypotension; Start 11/28/18 at 09:15; Stop 11/28/18 at 15:14; Status DC Sodium Chloride 1,000 ml @ 400 mls/hr Q2H30M PRN IV PATENCY; Start 11/28/18 at 09:05; Stop 11/28/18 at 21:04; Status DC Info (PHARMACY MONITORING -- do not chart) 1 each PRN DAILY PRN MC SEE COMMENTS ; Start 11/28/18 at 09:15; Stop 11/28/18 at 17:07; Status DC Info (PHARMACY MONITORING -- do not chart) 1 each PRN DAILY PRN MC SEE COMMENTS ; Start 11/28/18 at 09:15 Sodium Chloride 1,000 ml @ 1,000 mls/hr Q1H PRN IV hypotension; Start 11/29/18 at 16:30; Stop 11/29/18 at 23:00; Status DC Info (PHARMACY MONITORING -- do not chart) 1 each PRN DAILY PRN MC SEE COMMENTS ; Start 11/29/18 at 16:45; Status UNV Info (PHARMACY MONITORING -- do not chart) 1 each PRN DAILY PRN MC SEE COMMENTS ; Start 11/29/18 at 16:45; Status UNV Info (PHARMACY MONITORING -- do not chart) 1 each PRN DAILY PRN MC SEE COMMENTS ; Start 11/30/18 at 08:30 Active Scripts Active Zofran (Ondansetron Hcl) 4 Mg Tablet 1 Tab PO Q6HRS Zyvox (Linezolid) 600 Mg Tablet 600 Mg PO BID 30 Days Hydrocodone-Apap 5-325 (Hydrocodone Bit/Acetaminophen) 1 Tab Tablet 1 Tab PO PRN Q4HRS PRN 30 Days Aspirin Ec (Aspirin) 81 Mg Tablet. 81 Mg PO DAILYWBKFT 30 Days [Pantoprazole] 40 MG Tablet. 40 Mg PO DAILYAC 30 Days Humalog (Insulin Lispro) 100 Unit/1 Ml Insuln.pen 0 Units SQ TIDWMEALS 30 Days BG 150-199= 1 units 200-299= 2 units 300-399= 4 units 400-499= 6 units ac tid sliding scale Culturelle (Lactobacillus Rhamnosus Gg) 1 Each Cap.sprink 1 Cap PO BID 30 Days Tylenol (Acetaminophen) 325 Mg Tablet 325 Mg PO PRN Q4HRS PRN 30 Days Carvedilol (Carvedilol) 3.125 Mg Tablet 3.125 Mg PO BIDWMEALS 30 Days Renvela (Sevelamer Carbonate) 800 Mg Tablet 800 Mg PO TIDWMEALS 30 Days Pantoprazole Sodium 40 Mg Tablet.dr 40 Mg PO DAILYAC 30 Days Krista-Beatriz Tablet (Folic Acid/Vitamin B Comp W-C) 0.8 Mg Tablet 1 Tab PO DAILY 30 Days Reported Vitamin B-12 (Cyanocobalamin (Vitamin B-12)) 1,000 Mcg Tablet 1 Tab PO DAILY Allopurinol 100 Mg Tablet 1 Tab PO DAILY Renal Caps Softgel (Folic Acid/Vitamin B Comp W-C) 1 Mg Capsule 1 Cap PO DAILY Acidophilus Lactobacilli (Lactobacillus Acidophilus) 1 Each Capsule 1 Each PO BID Protonix (Pantoprazole Sodium) 20 Mg Tablet.dr 40 Mg PO DAILY Renvela (Sevelamer Carbonate) 800 Mg Tablet 800 Mg PO TIDWMEALS Lyrica (Pregabalin) 50 Mg Capsule 50 Mg PO HS Tylenol (Acetaminophen) 325 Mg Tablet 1 Tab PO PRN Q4HRS Hydrocodone-Apap 5-325 (Hydrocodone Bit/Acetaminophen) 1 Tab Tablet 1 Tab PO PRN Q4HRS PRN Aspirin 81 Mg Tab.chew 81 Mg PO DAILY Carvedilol (Carvedilol) 3.125 Mg Tablet 3.125 Mg PO BIDWMEALS Lipitor (Atorvastatin Calcium) 40 Mg Tablet 40 Mg PO HS Clopidogrel (Clopidogrel Bisulfate) 75 Mg Tablet 75 Mg PO DAILY Vitamin D (Cholecalciferol (Vitamin D3)) 2,000 Unit Capsule 1 Cap PO DAILY [place] 5-325 Tablet (Acetaminophen/Hydrocodone Bitart) 1 Each Tablet 1 Tab PO PRN Q4HRS PRN Lyrica (Pregabalin) 50 Mg Capsule 25 Mg PO HS Clopidogrel (Clopidogrel Bisulfate) 75 Mg Tablet 1 Tab PO DAILY Atorvastatin Calcium 40 Mg Tablet 40 Mg PO HS Allopurinol 100 Mg Tablet 1 Tab PO DAILY Vitamin B-12 (Cyanocobalamin (Vitamin B-12)) 1,000 Mcg Tablet 1 Tab PO DAILY Vitamin D-3 (Cholecalciferol (Vitamin D3)) 2,000 Unit Capsule 1,000 Unit PO DAILY Vitals/I & O Vital Sign - Last 24 Hours 11/29/18 11/29/18 11/29/18 11/29/18 11:00 12:44 15:00 18:49 Temp 99.3 99.5 99.3 99.5 Pulse 62 62 62 Resp 18 18 B/P (MAP) 109/52 (71) 124/62 (82) 140/50 Pulse Ox 96 96 O2 Delivery Room Air Room Air Room Air 11/29/18 11/29/18 11/29/18 11/29/18 19:00 20:05 20:52 21:52 Temp 98.1 98.1 Pulse 63 Resp 22 20 20 B/P (MAP) 118/59 (78) Pulse Ox 95 O2 Delivery Room Air Nasal Cannula Nasal Cannula Nasal Cannula O2 Flow Rate 2.0 11/29/18 11/30/18 11/30/18 11/30/18 23:00 03:00 07:00 08:00 Temp 98.6 97.6 97.7 98.6 97.6 97.7 Pulse 60 61 42 42 Resp 20 14 18 B/P (MAP) 111/57 (75) 141/63 (89) 109/50 (69) 109/50 Pulse Ox 100 97 90 O2 Delivery Nasal Cannula Nasal Cannula 2L PRN O2 Flow Rate 2.0 2.0 Intake and Output 11/29/18 11/29/18 11/30/18 15:01 23:01 07:01 Intake Total 600 ml 50 ml Output Total 550 ml Balance 50 ml 50 ml KIMI TIDWELL MD Nov 30, 2018 09:59
[2018-11-30] MEDS ORDERED: MAGNESIUM SULFATE 2GM 50 ML IV ONE (10:00)
[2018-11-30] MEDS ORDERED: ALBUMIN HUMAN 25% 200 ML IV PRN (10:00)
[2018-11-30] MEDS ORDERED: IV NORMAL SALINE 1000ML BAG 1,000 ML IV PRN (10:00)
--- NOTE | 2018-11-30 10:21 | PDOC ---
SUBJECTIVE ROS Follow-up of ESRD on hemodialysis Wednesday Patient claims he currently has some right lower extremity pain. He denies any other sent symptoms at this time he does appear somewhat drowsy though. CVS: no Orthopnea, no CP RESP: no SOB, no HUGGINS GI: no Nausea, no Vomiting : no Dysuria, no Urgency OBJECTIVE Vital Signs Vital Signs Date Time Temp Pulse Resp B/P (MAP) Pulse Ox O2 Delivery O2 Flow Rate FiO2 11/30/18 08:00 Room Air 11/30/18 08:00 42 109/50 11/30/18 07:00 97.7 18 90 97.7 11/30/18 03:00 2.0 I & 0 Intake and Output 11/30/18 07:01 Intake Total 650 ml Output Total 550 ml Balance 100 ml Intake Oral 600 ml IV Total 50 ml Output Urine Total 550 ml # Voids 2 # Bowel Movements 1 PHYSICAL EXAM Physical Exam GEN: Awake, Oriented x1, Peter somewhat drowsy In no distress EYES: Vision Unchanged, Conjunctiva Normal EN: No EN Drainage, Mucous Membranes moist NECK: no JVD, no JVP, Supple, no Thyromegaly; short thick CVS: S1S2, no Murmur, No Gallop, No Rub,no Edema appears bradycardic RESP: no Rales, no Rhonchi,no Acc. Muscle Use GI: BS + ve, NO Bruit, Non Tender, Non Distended : no CVA tenderness, no Suprapubic Tenderness DIAGNOSIS/ASSESSMENT Assessment & Plan ESRD: We'll proceed with dialysis later today Dialysis as below F 180 NR 4.0 Hrs 2 K 2.5 Ca 140 Na 30 HC03 Qb 350 + Qd 500+ Heparin 0 Units Uf to dry weight as tolerated May give 25-50 gms of 25% Albumin if needed to maintain Hemodynamic stability Treatment plan reviewed and discussed with web developer programmer Possible symptomatic bradycardia. Discussed with nurse. May need transfer to telemetry unit. Coreg was discontinued Hyperkalemia from yesterday: Resolved currently. No signs of access recirculation is noted. Central vein stenosis cannot be ruled out. May need angiography later ANEMIA of chronic kidney disease; hemoglobin is lower, worse today. Aranesp as ordered, Transfuse with next HD as needed HTN: Current blood pressures somewhat marginal. Current BP meds as reviewed. See orders for changes. BONE & MINERAL: Follow phosphorus levels and alter binder regimen as needed. Marginal magnesium: magnesium ordered for today by Dr. Street. Underlying drowsiness, question of encephalopathy. Noted to have a fever currently. He is noted to be bradycardic. We'll hence transferred to environmental monitoring technician with Dr. Street's approval. May need cardiology evaluation. We'll check TSH Right foot wound: Antibiotics as an outpatient are being set up. We'll attempt to coordinate this with dialysis as an outpatient if possible Discussed Plan of Care with family at bedside over the phone COMMENT/RELEVANT DATA Meds Current Medications Medications (Trade) Dose Ordered Sig/Bhavesh Start Time Stop Time Status Last Admin Dose Admin Acetaminophen (Tylenol) 325 mg PRN Q4HRS PRN 11/24/18 20:30 Acetaminophen/ Hydrocodone Bitart (Lortab 5/325) 1 tab PRN Q4HRS PRN 11/24/18 20:30 11/29/18 20:52 1 TAB Albumin Human 200 ml @ 200 mls/hr 1X PRN PRN 11/28/18 09:15 11/28/18 15:14 DC Allopurinol (Zyloprim) 100 mg DAILY 11/25/18 09:00 11/30/18 08:59 100 MG Aspirin (Children'S Aspirin) 81 mg DAILY 11/25/18 09:00 11/30/18 08:59 81 MG Atorvastatin Calcium (Lipitor) 40 mg HS 11/24/18 21:00 11/29/18 20:38 40 MG Carvedilol (Coreg) 3.125 mg BIDWMEALS 11/24/18 21:00 11/29/18 18:49 3.125 MG Clopidogrel Bisulfate (Plavix) 75 mg DAILY 11/25/18 09:00 11/30/18 08:57 75 MG Collagenase (Santyl) 1 judi DAILY 11/25/18 10:00 11/30/18 09:00 1 JUDI Cyanocobalamin (Vitamin B-12) 1,000 mcg DAILY 11/25/18 09:00 11/30/18 08:57 1,000 MCG Daptomycin 690 mg/ Sodium Chloride 50 ml @ 100 mls/hr MoWeFr@1600 11/25/18 16:00 11/28/18 20:45 100 MLS/HR Dextrose (Dextrose 50%-Water Syringe) 12.5 gm PRN Q15MIN PRN 11/24/18 20:45 Heparin Sodium (Porcine) (Heparin Sodium) 5,000 unit Q12HR 11/25/18 21:00 11/28/18 09:44 DC 11/27/18 20:28 5,000 UNIT Info (PHARMACY MONITORING -- do not chart) 1 each PRN DAILY PRN 11/30/18 08:30 Insulin Human Lispro (HumaLOG) 0-5 UNITS BG 300-39... TIDWMEALS 11/25/18 08:00 Lactobacillus Rhamnosus (Culturelle) 1 cap BID 11/24/18 21:00 11/30/18 08:58 1 CAP Linezolid (Zyvox) 600 mg BID 11/25/18 11:00 11/28/18 10:04 DC 11/28/18 08:48 600 MG Magnesium Sulfate 50 ml @ 25 mls/hr 1X ONCE 11/30/18 10:00 11/30/18 11:59 Meropenem 500 mg/ Sodium Chloride 50 ml @ 100 mls/hr DAILY16 11/25/18 16:00 11/29/18 18:48 100 MLS/HR Ondansetron HCl (Zofran Odt) 4 mg PRN Q6HRS PRN 11/27/18 02:15 11/28/18 18:25 4 MG Pantoprazole Sodium (Protonix) 40 mg DAILYAC 11/25/18 07:30 11/30/18 08:59 40 MG Pregabalin (Lyrica) 50 mg HS 11/24/18 21:00 11/29/18 20:37 50 MG Sevelamer Carbonate (Renvela) 800 mg TIDWMEALS 11/25/18 08:00 11/30/18 08:57 800 MG Sodium Chloride 1,000 ml @ 1,000 mls/hr Q1H PRN 11/29/18 16:30 11/29/18 23:00 DC Vitamin B Complex/ Vitamin C (Krista-Beatriz) 1 tab DAILY 11/25/18 09:00 11/30/18 08:59 1 TAB Vitamin D (Vitamin D3) 1,000 unit DAILY 11/25/18 09:00 11/30/18 08:58 1,000 UNIT Lab Laboratory Tests Test 11/29/18 10:58 11/29/18 20:16 11/30/18 05:10 11/30/18 07:46 Glucose (Fingerstick) 114 mg/dL (70-99) 108 mg/dL (70-99) 104 mg/dL (70-99) White Blood Count 4.9 x10^3/uL (4.0-11.0) Red Blood Count 2.49 x10^6/uL (4.30-5.70) Hemoglobin 7.7 g/dL (13.0-17.5) Hematocrit 23.0 % (39.0-53.0) Mean Corpuscular Volume 92 fL (79-100) Mean Corpuscular Hemoglobin 31 pg (25-35) Mean Corpuscular Hemoglobin Concent 34 g/dL (31-37) Red Cell Distribution Width 19.0 % (11.5-14.5) Platelet Count 71 x10^3/uL (140-400) Neutrophils (%) (Auto) 62 % (31-73) Lymphocytes (%) (Auto) 23 % (24-48) Monocytes (%) (Auto) 11 % (0-9) Eosinophils (%) (Auto) 5 % (0-3) Basophils (%) (Auto) 0 % (0-3) Neutrophils # (Auto) 3.0 x10^3uL (1.8-7.7) Lymphocytes # (Auto) 1.1 x10^3/uL (1.0-4.8) Monocytes # (Auto) 0.5 x10^3/uL (0.0-1.1) Eosinophils # (Auto) 0.2 x10^3/uL (0.0-0.7) Basophils # (Auto) 0.0 x10^3/uL (0.0-0.2) Sodium Level 139 mmol/L (136-145) Potassium Level 4.6 mmol/L (3.5-5.1) Chloride Level 101 mmol/L (98-107) Carbon Dioxide Level 29 mmol/L (21-32) Anion Gap 9 (6-14) Blood Urea Nitrogen 38 mg/dL (8-26) Creatinine 6.1 mg/dL (0.7-1.3) Estimated GFR (Cockcroft-Gault) 10.9 Glucose Level 107 mg/dL (70-99) Calcium Level 8.2 mg/dL (8.5-10.1) Phosphorus Level 4.0 mg/dL (2.6-4.7) Magnesium Level 1.7 mg/dL (1.8-2.4) Albumin 2.1 g/dL (3.4-5.0) Results All relevant outside records, renal labs, imaging studies, telemetry/EKG's were reviewed. Other FINDINGS: The proximal right cephalic vein is patent with normal color Doppler and spectral analysis. Distal right subclavian vein is patent. Right brachial artery is normal in caliber, patent with normal spectral analysis and waveform. Findings are most suggestive of a brachial artery cephalic vein arteriovenous fistula with peak systolic velocity measuring 511 cm/s. No thrombus is identified. 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 JANAE MONTAGUE MD Nov 30, 2018 10:21
--- NOTE | 2018-11-30 10:23 | PDOC ---
Provider Note Provider Note Vascular S: Patient without complaints, asking about HBO therapy O: Awake and alert VSS, afebrile Right amputation site inspected, minimal change, large amount of slough distal wound, granulation distal proximal wound. Ankle ulcer clean with granulation tissue, 2nd toe with ulcer, dry. A/P: S/P recent amputation rt 1st toe, some areas of necrosis S/P recent angiogram showing severe distal tibial disease. Recommend Santyl and HBO-evaluation in process. If unsuccessful healing with wound care and HBO patient may need BKA. Antibiotics per ID Pt. with CRF on dialysis/DM/PVD, US of AVF demonstrates patent fistula with no central stenosis. [facility] and with Dr. Byers on 12/22/2018 1:45 DILLON MALDONADO APRN Nov 30, 2018 10:23
[2018-11-30] MEDS ORDERED: traMADol 50 MG TABLET PO PRN (11:00)
[2018-11-30 11:02] LABS: FREE T4 0.99 ng/dL (0.76-1.46); THYROID STIM HORMONE (TSH) 0.101 uIU/mL (0.358-3.74)
--- NOTE | 2018-11-30 11:49 | PDOC ---
Infectious Disease Note Subjective: Subjective pt sleepy did not wake him up transferred to 2nd floor for radha cardia on 5th floor but none since awaiting placement D/W RN ROS: ROS Negative except for above. Vital Signs: Vital Signs Vital Signs Date Time Temp Pulse Resp B/P (MAP) Pulse Ox O2 Delivery O2 Flow Rate FiO2 11/30/18 10:56 97.8 60 20 96/42 (60) 92 Room Air 97.8 11/30/18 10:24 2.0 Physical Exam: PHYSICAL EXAM GENERAL: NAD - in chair HEENT: Oral cavity clear NECK: Supple. LUNGS: Clear HEART: S1, S2 ABDOMEN: Soft, NT, BS present - obese EXTREMITIES: Trace edema; right 1st toe amp site dressed AV fistula NEUROLOGIC: Alert and oriented SKIN: No rash Right SCL (11/10) clean Medications: Inpatient Meds: Current Medications Medications (Trade) Dose Ordered Sig/Bhavesh Start Time Stop Time Status Last Admin Dose Admin Acetaminophen (Tylenol) 325 mg PRN Q4HRS PRN 11/24/18 20:30 Acetaminophen/ Hydrocodone Bitart (Lortab 5/325) 1 tab PRN Q4HRS PRN 11/24/18 20:30 11/30/18 11:04 DC 11/29/18 20:52 1 TAB Albumin Human 200 ml @ 200 mls/hr 1X PRN PRN 11/28/18 09:15 11/28/18 15:14 DC Allopurinol (Zyloprim) 100 mg DAILY 11/25/18 09:00 11/30/18 08:59 100 MG Aspirin (Children'S Aspirin) 81 mg DAILY 11/25/18 09:00 11/30/18 08:59 81 MG Atorvastatin Calcium (Lipitor) 40 mg HS 11/24/18 21:00 11/29/18 20:38 40 MG Carvedilol (Coreg) 3.125 mg BIDWMEALS 11/24/18 21:00 11/30/18 10:19 DC 11/29/18 18:49 3.125 MG Clopidogrel Bisulfate (Plavix) 75 mg DAILY 11/25/18 09:00 11/30/18 08:57 75 MG Collagenase (Santyl) 1 judi DAILY 11/25/18 10:00 11/30/18 09:00 1 JUDI Cyanocobalamin (Vitamin B-12) 1,000 mcg DAILY 11/25/18 09:00 11/30/18 08:57 1,000 MCG Daptomycin 690 mg/ Sodium Chloride 50 ml @ 100 mls/hr MoWeFr@1600 11/25/18 16:00 11/28/18 20:45 100 MLS/HR Darbepoetin Reinaldo (Aranesp) 100 mcg WEEKLYHS 11/30/18 21:00 Dextrose (Dextrose 50%-Water Syringe) 12.5 gm PRN Q15MIN PRN 11/24/18 20:45 Heparin Sodium (Porcine) (Heparin Sodium) 5,000 unit Q12HR 11/25/18 21:00 11/28/18 09:44 DC 11/27/18 20:28 5,000 UNIT Info (PHARMACY MONITORING -- do not chart) 1 each PRN DAILY PRN 11/30/18 08:30 Insulin Human Lispro (HumaLOG) 0-5 UNITS BG 300-39... TIDWMEALS 11/25/18 08:00 Lactobacillus Rhamnosus (Culturelle) 1 cap BID 11/24/18 21:00 11/30/18 08:58 1 CAP Linezolid (Zyvox) 600 mg BID 11/25/18 11:00 11/28/18 10:04 DC 11/28/18 08:48 600 MG Magnesium Sulfate 50 ml @ 25 mls/hr 1X ONCE 11/30/18 10:00 11/30/18 11:59 11/30/18 10:44 25 MLS/HR Meropenem 500 mg/ Sodium Chloride 50 ml @ 100 mls/hr DAILY16 11/25/18 16:00 11/29/18 18:48 100 MLS/HR Nystatin (Nystop) 1 judi BID 11/30/18 12:00 Ondansetron HCl (Zofran Odt) 4 mg PRN Q6HRS PRN 11/27/18 02:15 11/28/18 18:25 4 MG Pantoprazole Sodium (Protonix) 40 mg DAILYAC 11/25/18 07:30 11/30/18 08:59 40 MG Pregabalin (Lyrica) 50 mg HS 11/24/18 21:00 11/29/18 20:37 50 MG Sevelamer Carbonate (Renvela) 800 mg TIDWMEALS 11/25/18 08:00 11/30/18 08:57 800 MG Sodium Chloride 1,000 ml @ 1,000 mls/hr Q1H PRN 11/29/18 16:30 11/29/18 23:00 DC Tramadol HCl (Ultram) 25 mg PRN Q6HRS PRN 11/30/18 11:00 Vitamin B Complex/ Vitamin C (Krista-Beatriz) 1 tab DAILY 11/25/18 09:00 11/30/18 08:59 1 TAB Vitamin D (Vitamin D3) 1,000 unit DAILY 11/25/18 09:00 11/30/18 08:58 1,000 UNIT Labs: Lab Laboratory Tests Test 11/29/18 20:16 11/30/18 05:10 11/30/18 07:46 11/30/18 11:15 Glucose (Fingerstick) 108 mg/dL (70-99) 104 mg/dL (70-99) 128 mg/dL (70-99) White Blood Count 4.9 x10^3/uL (4.0-11.0) Red Blood Count 2.49 x10^6/uL (4.30-5.70) Hemoglobin 7.7 g/dL (13.0-17.5) Hematocrit 23.0 % (39.0-53.0) Mean Corpuscular Volume 92 fL (79-100) Mean Corpuscular Hemoglobin 31 pg (25-35) Mean Corpuscular Hemoglobin Concent 34 g/dL (31-37) Red Cell Distribution Width 19.0 % (11.5-14.5) Platelet Count 71 x10^3/uL (140-400) Neutrophils (%) (Auto) 62 % (31-73) Lymphocytes (%) (Auto) 23 % (24-48) Monocytes (%) (Auto) 11 % (0-9) Eosinophils (%) (Auto) 5 % (0-3) Basophils (%) (Auto) 0 % (0-3) Neutrophils # (Auto) 3.0 x10^3uL (1.8-7.7) Lymphocytes # (Auto) 1.1 x10^3/uL (1.0-4.8) Monocytes # (Auto) 0.5 x10^3/uL (0.0-1.1) Eosinophils # (Auto) 0.2 x10^3/uL (0.0-0.7) Basophils # (Auto) 0.0 x10^3/uL (0.0-0.2) Sodium Level 139 mmol/L (136-145) Potassium Level 4.6 mmol/L (3.5-5.1) Chloride Level 101 mmol/L (98-107) Carbon Dioxide Level 29 mmol/L (21-32) Anion Gap 9 (6-14) Blood Urea Nitrogen 38 mg/dL (8-26) Creatinine 6.1 mg/dL (0.7-1.3) Estimated GFR (Cockcroft-Gault) 10.9 Glucose Level 107 mg/dL (70-99) Calcium Level 8.2 mg/dL (8.5-10.1) Phosphorus Level 4.0 mg/dL (2.6-4.7) Magnesium Level 1.7 mg/dL (1.8-2.4) Albumin 2.1 g/dL (3.4-5.0) Thyroid Stimulating Hormone (TSH) 0.101 uIU/mL (0.358-3.74) Free Thyroxine 0.99 ng/dL (0.76-1.46) Objective: Assessment: Recent 1 st toe amp with developing gangrene, s/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 (h/o MSSA, Enterobacter and VRE). ESR 90 Right lateral malleolus wound s/p sharp excisional debridement removing necrotic subcutaneous tissue, 11/02. -11/02. Enterobacter aerogenes, Cipro sensitive, VRE (linezolid & Dapto sensistive; PCN resistent) and Gram variable nuria not ID PAD s/p angio 11/03. ESRD/HD Diarrhea/loose stools. C. diff neg Thrombocytopenia - on Zyvox,off zyvox Plan: Plan of Care Discharging to [facility] when can be arranged however have issues with cost of Daptomycin Zyvox causes issue with Thrombocytopenia so not an option Continue Dapto and meropenem Soc Service to check cost of Tigecycline as possible option Repeat CBC in am monitor platelets,plt still low at 79 Every Wednesday CBC, ESR, CPK. Fax results to [phone] f/u appt with us in 1-2 weeks f/u with vascular as directed HBO therapy - wound care team following LARISA MONTAGUE MD Nov 30, 2018 11:49
[2018-11-30] MEDS: NYSTATIN TOPICAL POWDER 15GM BOTTLE. TP SCH ×2 (12:00→20:12)
--- NOTE | 2018-11-30 12:02 | PDOC2 ---
YULI GANDHI LUSTER REPAIRER 11/30/18 1202: CARDIAC CONSULT DATE OF CONSULT Date of Consult DATE: 11/30/18 TIME: 11:54 REASON FOR CONSULT Reason for Consult: bradycardia REFERRING PHYSICIAN Referring Physician: Dr. Street SOURCE Source: Chart review, Patient HISTORY OF PRESENT ILLNESS HISTORY OF PRESENT ILLNESS This is a 77 yo male, with a history of PAD and non-healing right great toe wound, who was referred to hospitalization as wound continued to worsen despite aggressive antibiotic therapy and wound vac. Patient denies any chest pain, palpitations, dizziness, diaphoresis, or fevers. HR noted in the 40's this morning, which prompted this consult and transfer to [facility]. PAST MEDICAL HISTORY Past Medical History Cardiovascular: AFIB, CAD, CHF, HTN, Hyperlipidemia, PAD, SSS Pulmonary: Other (MOUNIKA) CENTRAL NERVOUS SYSTEM: CVA, peripheral neuropathy GI: GERD, diverticulosis Heme/Onc: Anemia Hepatobiliary: No pertinent hx Psych: No pertinent hx Musculoskeletal: Osteoarthritis Rheumatologic: No pertinent hx Infectious disease: No pertinent hx ENT: No pertinent hx Renal/: Chronic renal failure (ESRD on HD) Endocrine: Diabetes (2) Dermatology: No pertinent hx PAST SURGICAL HISTORY Past Surgical History Pacemaker, Cataract Removal, Other ((left toe amputation, right great toe partial amputations, PCI/stent; right SFA stent, left SFA and tibial angioplasty ) FAMILY HISTORY Family History: Coronary Artery Disease SOCIAL HISTORY Social History Smoke: No ALCOHOL: none Drugs: None Lives: Alone CURRENT MEDICATIONS CURRENT MEDICATIONS Current Medications Medications (Trade) Dose Ordered Sig/Bhavesh Route PRN Reason Start Time Stop Time Status Last Admin Dose Admin Magnesium Sulfate 50 ml @ 25 mls/hr 1X ONCE IV 11/30/18 10:00 11/30/18 11:59 11/30/18 10:44 ALLERGIES ALLERGIES: Coded Allergies: I S O L A T I O N *CONTACT* (Verified Allergy, Unknown, 11/25/18) vre No Known Medication Allergies (Verified Allergy, Unknown, 11/25/18) ROS Review of System 14 point ROS conducted with pertinent positives noted above in HPI. PHYSICAL EXAM PHYSICAL EXAM General: Alert, Cooperative, No acute distress HEENT: Atraumatic, Mucous membr. moist/pink Lungs: Clear to auscultation, Normal air movement Heart: Regular rate, Normal S1, Normal S2, Other (2/6 systolic murmur ) Abdomen: Soft, No tenderness Skin: right great toe s/p amputation with wound, right ankle ulcer Neuro: Normal speech, Sensation intact Psych/Mental Status: Mental status NL, Mood NL, drowsy MUSCULOSKELETAL: Osteoarthritic changes both hands VITALS VITALS Vital Signs Date Time Temp Pulse Resp B/P (MAP) Pulse Ox O2 Delivery O2 Flow Rate FiO2 11/30/18 10:56 97.8 60 20 96/42 (60) 92 Room Air 97.8 11/30/18 10:24 2.0 LABS Lab: Laboratory Tests Test 11/29/18 20:16 11/30/18 05:10 11/30/18 07:46 11/30/18 11:15 Glucose (Fingerstick) 108 mg/dL (70-99) 104 mg/dL (70-99) 128 mg/dL (70-99) White Blood Count 4.9 x10^3/uL (4.0-11.0) Red Blood Count 2.49 x10^6/uL (4.30-5.70) Hemoglobin 7.7 g/dL (13.0-17.5) Hematocrit 23.0 % (39.0-53.0) Mean Corpuscular Volume 92 fL (79-100) Mean Corpuscular Hemoglobin 31 pg (25-35) Mean Corpuscular Hemoglobin Concent 34 g/dL (31-37) Red Cell Distribution Width 19.0 % (11.5-14.5) Platelet Count 71 x10^3/uL (140-400) Neutrophils (%) (Auto) 62 % (31-73) Lymphocytes (%) (Auto) 23 % (24-48) Monocytes (%) (Auto) 11 % (0-9) Eosinophils (%) (Auto) 5 % (0-3) Basophils (%) (Auto) 0 % (0-3) Neutrophils # (Auto) 3.0 x10^3uL (1.8-7.7) Lymphocytes # (Auto) 1.1 x10^3/uL (1.0-4.8) Monocytes # (Auto) 0.5 x10^3/uL (0.0-1.1) Eosinophils # (Auto) 0.2 x10^3/uL (0.0-0.7) Basophils # (Auto) 0.0 x10^3/uL (0.0-0.2) Sodium Level 139 mmol/L (136-145) Potassium Level 4.6 mmol/L (3.5-5.1) Chloride Level 101 mmol/L (98-107) Carbon Dioxide Level 29 mmol/L (21-32) Anion Gap 9 (6-14) Blood Urea Nitrogen 38 mg/dL (8-26) Creatinine 6.1 mg/dL (0.7-1.3) Estimated GFR (Cockcroft-Gault) 10.9 Glucose Level 107 mg/dL (70-99) Calcium Level 8.2 mg/dL (8.5-10.1) Phosphorus Level 4.0 mg/dL (2.6-4.7) Magnesium Level 1.7 mg/dL (1.8-2.4) Albumin 2.1 g/dL (3.4-5.0) Thyroid Stimulating Hormone (TSH) 0.101 uIU/mL (0.358-3.74) Free Thyroxine 0.99 ng/dL (0.76-1.46) ECHOCARDIOGRAM ECHOCARDIOGRAM <Conclusion> The left ventricular systolic function is normal. The Ejection Fraction is 55-60%. There is normal LV segmental wall motion. There is a pacemaker lead in the right atrium and right ventricle. Mild aortic stenosis. Trace mitral regurgitation. Trace tricuspid regurgitation with an estimated PAP 56 mmHg. There is no evidence of significant pericardial effusion. DATE: 11/07/181801 ASSESSMENT/PLAN ASSESSMENT/PLAN 1. PAD; s/p previous right SFA stent and recent left SFA and tibial angioplasty. Vascular surgery following. 2. Right great toe wound. S/p recent amputation; non-healing with necrotic tissue and osteomyelitis. Also right ankle wound 3. SSS; s/p PPM ([employer]). Gen change earlier this year. HR noted to be in the 40's this am; no rhythm strips available to view; will have device interrogated. 4. CAD s/p PCI/stent. clinically stable. CP free. MPI conducted earlier this year with MAC 5. Chronic AFIB; previously on warfarin but was discontinued due to psoas hematoma, Rate controlled 6. Chronic diastolic CHF; compensated. LVEF 50% 7. Hypertension; controlled 8. Hyperlipidemia; well controlled. 9. Diabetes, II 10. ESRD on HD 11. Anemia of chronic disease 12. MOUNIKA; CPAP at home 13. H/o CVA with left side hemiparesis PAL CAMACHO MD 11/30/18 1632: CARDIAC CONSULT ASSESSMENT/PLAN ASSESSMENT/PLAN Patient seen and examined. Agree with ALTERNATIVE MEDICINE PRACTITIONER's assessment and plan. Agree with holding Coreg for episodes of bradycardia Permanent atrial fibrillation rate controlled now CAD status clinically stable Chronic diastolic heart failure well compensated SSS s/p PPM clinically stable Continue current treatment for PAD per vascular surgery team Thank you for your consultation YULI GANDHI APRN Nov 30, 2018 12:02 PAL CAMACHO MD Nov 30, 2018 16:32
--- NOTE | 2018-11-30 12:19 | NUR ---
Patient heart rate this morning 42, held Coreg dose, rechecked and HR now at 60. Dr. Emir Muir expressed concerned with patient bradycardia episode and remaining borderline bradycardic, as well as persistent drowsiness. Recommended for patient to be placed on tele. This RN said patient would have to be transferred as this floor no longer operates tele monitors. Dr. Muir said to ask Dr. Street permission. This RN paged Dr. Street who agreed with transfer to tele floor. Additional orders included cardiology consult, EKG, stop hydrocodone and replace with tramadol. This RN placed all orders. This RN gave report to Karey MARTINEZ, answered questions and concerns and can call back at anytime with further questions. Patient notified of transfer. This RN called Jennifer who is patient's sister with the new room number and asked her to spread the word to all family members. Shalini community midwife, called in new cardiology consult as patient was being transferred off of floor. This RN spoke with Dialysis nurse of [facility] room, who said it would be a couple hours before she got to run him. Patient transferred to [facility] room 246 with assistance of transportation team.
--- NOTE | 2018-11-30 14:17 | NUR ---
SW following for discharge planning. [facility] cannot pay for Tigecycline. Dr. Street and RN advised. Dahiana from [facility] is wanting to meet with pt. FABRIZIO will continue to follow.
--- NOTE | 2018-11-30 16:09 | EKG ---
[facility] [address] [place] [address] Test Date: 2018-11-30 Test Time: 16:02:33 Pat Name: NARENDRA MACIAS Department: Room: 246 1 Gender: M Ditcher: [facility] : 1940 Requested By: KIMI TIDWELL Order Number: [id number] Reading MD: David Henning Measurements Intervals [place] Rate: 60 P: 90 CT: 346 QRS: 152 QRSD: 154 T: -32 QT: 502 QTc: 502 Interpretive Statements VENTRICULAR PACED RHYTHM Electronically Signed On 12-10-2018 18:44:36 COAL INSPECTOR by David Henning
[2018-11-30] MEDS ORDERED: ALBUMIN HUMAN 25% 200 ML IV ONE (16:45)
[2018-11-30 18:18] LABS: BASE EXCESS ABG 4 mmol/L (-3-3); HCO3 ABG 29 mmol/L (21-28); PCO2 ABG 47 mmHg (35-46); PO2 ABG 115 mmHg (65-108); SAT O2 ABG 97 % (92-99)
[2018-11-30 18:19] LABS: FIO2 ABG 24
[2018-11-30] MEDS: MEROPENEM 500 MG in IV NORMAL SALINE 50ML 50 ML IV SCH (20:02)
[2018-11-30] MEDS: PREGABALIN 50 MG CAPSULE PO SCH (20:18)
[2018-11-30] MEDS: ATORVASTATIN CALCIUM 40 MG TABLET. PO SCH (20:18)
[2018-11-30] MEDS: DARBEPOETIN ALFA 100 MCG/0.5 ML DISP.SYRIN. SQ SCH (20:22)
[2018-11-30] MEDS: DAPTOMYCIN IV SCH (20:25)
[2018-11-30] MEDS: NORMAL SALINE IV SCH (20:25)
[2018-12-01 03:25] VITALS: BP 121/54
[2018-12-01 05:28] LABS: BASO % 0 % (0-3); EOS # 0.5 x10^3/uL (0.0-0.7); EOS % 8 % (0-3); HEMATOCRIT 22.1 % (39.0-53.0); HEMOGLOBIN 7.3 g/dL (13.0-17.5); LYMPH # 1.3 x10^3/uL (1.0-4.8); LYMPH % 21 % (24-48); MEAN CORPUSCULAR HEMOGLOBIN 31 pg (25-35); MEAN CORPUSCULAR HGB CONC 33 g/dL (31-37); MEAN CORPUSCULAR VOLUME 92 fL (79-100); MONO # 0.6 x10^3/uL (0.0-1.1); MONO % 10 % (0-9); NEUT # 3.6 x10^3uL (1.8-7.7); NEUT % 60 % (31-73); PLATELET COUNT 53 x10^3/uL (140-400); RED BLOOD COUNT 2.39 x10^6/uL (4.30-5.70); RED CELL DISTRIBUTION WIDTH 18.7 % (11.5-14.5); WHITE BLOOD COUNT 6.1 x10^3/uL (4.0-11.0)
[2018-12-01 05:54] LABS: ALBUMIN 2.7 g/dL (3.4-5.0); CALCIUM 8.5 mg/dL (8.5-10.1); CREATININE 5.4 mg/dL (0.7-1.3); GFR 12.5; PHOSPHORUS 3.3 mg/dL (2.6-4.7); POTASSIUM 4.4 mmol/L (3.5-5.1)
[2018-12-01] MEDS: PANTOPRAZOLE 40 MG TABLET.DR. PO SCH (06:54)
[2018-12-01 07:10] VITALS: BP 110/60
--- NOTE | 2018-12-01 07:13 | PDOC ---
Infectious Disease Note Subjective: Subjective pt has nausea , no vomiting cont to have diarrhea feels tired no f/c/v/abdo pain awaiting hbo tx today awaiting placement D/W RN ROS: ROS Negative except for above. Vital Signs: Vital Signs Vital Signs Date Time Temp Pulse Resp B/P (MAP) Pulse Ox O2 Delivery O2 Flow Rate FiO2 12/01/18 03:25 98.4 64 20 121/54 (76) 97 Nasal Cannula 2.0 98.4 Physical Exam: PHYSICAL EXAM GENERAL: NAD - in chair HEENT: Oral cavity clear NECK: Supple. LUNGS: Clear HEART: S1, S2 ABDOMEN: Soft, NT, BS present - obese EXTREMITIES: Trace edema; right 1st toe amp site dressed AV fistula NEUROLOGIC: Alert and oriented SKIN: No rash Right SCL (11/10) clean Medications: Inpatient Meds: Current Medications Medications (Trade) Dose Ordered Sig/Bhavesh Start Time Stop Time Status Last Admin Dose Admin Acetaminophen (Tylenol) 325 mg PRN Q4HRS PRN 11/24/18 20:30 Acetaminophen/ Hydrocodone Bitart (Lortab 5/325) 1 tab PRN Q4HRS PRN 11/24/18 20:30 11/30/18 11:04 DC 11/29/18 20:52 1 TAB Albumin Human 200 ml @ 100 mls/hr 1X ONCE 11/30/18 16:45 11/30/18 18:44 DC Allopurinol (Zyloprim) 100 mg DAILY 11/25/18 09:00 11/30/18 08:59 100 MG Aspirin (Children'S Aspirin) 81 mg DAILY 11/25/18 09:00 11/30/18 08:59 81 MG Atorvastatin Calcium (Lipitor) 40 mg HS 11/24/18 21:00 11/30/18 20:18 40 MG Carvedilol (Coreg) 3.125 mg BIDWMEALS 11/24/18 21:00 11/30/18 10:19 DC 11/29/18 18:49 3.125 MG Clopidogrel Bisulfate (Plavix) 75 mg DAILY 11/25/18 09:00 11/30/18 08:57 75 MG Collagenase (Santyl) 1 judi DAILY 11/25/18 10:00 11/30/18 09:00 1 JUDI Cyanocobalamin (Vitamin B-12) 1,000 mcg DAILY 11/25/18 09:00 1/2/19 08:57 1,000 MCG Daptomycin 690 mg/ Sodium Chloride 50 ml @ 100 mls/hr MoWeFr@1600 11/25/18 16:00 11/30/18 20:25 100 MLS/HR Darbepoetin Reinaldo (Aranesp) 100 mcg WEEKLYHS 11/30/18 21:00 11/30/18 20:22 100 MCG Dextrose (Dextrose 50%-Water Syringe) 12.5 gm PRN Q15MIN PRN 11/24/18 20:45 Heparin Sodium (Porcine) (Heparin Sodium) 5,000 unit Q12HR 11/25/18 21:00 11/28/18 09:44 DC 11/27/18 20:28 5,000 UNIT Info (PHARMACY MONITORING -- do not chart) 1 each PRN DAILY PRN 11/30/18 08:30 Insulin Human Lispro (HumaLOG) 0-5 UNITS BG 300-39... TIDWMEALS 11/25/18 08:00 Lactobacillus Rhamnosus (Culturelle) 1 cap BID 11/24/18 21:00 11/30/18 20:18 1 CAP Linezolid (Zyvox) 600 mg BID 11/25/18 11:00 11/28/18 10:04 DC 11/28/18 08:48 600 MG Magnesium Sulfate 50 ml @ 25 mls/hr 1X ONCE 11/30/18 10:00 11/30/18 11:59 DC 11/30/18 10:44 25 MLS/HR Meropenem 500 mg/ Sodium Chloride 50 ml @ 100 mls/hr DAILY16 11/25/18 16:00 11/30/18 20:02 100 MLS/HR Nystatin (Nystop) 1 judi BID 11/30/18 12:00 11/30/18 20:12 1 JUDI Ondansetron HCl (Zofran Odt) 4 mg PRN Q6HRS PRN 11/27/18 02:15 11/28/18 18:25 4 MG Pantoprazole Sodium (Protonix) 40 mg DAILYAC 11/25/18 07:30 12/01/18 06:54 40 MG Pregabalin (Lyrica) 50 mg HS 11/24/18 21:00 11/30/18 20:18 50 MG Sevelamer Carbonate (Renvela) 800 mg TIDWMEALS 11/25/18 08:00 11/30/18 20:18 800 MG Sodium Chloride 1,000 ml @ 1,000 mls/hr Q1H PRN 11/30/18 10:00 11/30/18 16:30 DC Tramadol HCl (Ultram) 25 mg PRN Q6HRS PRN 11/30/18 11:00 11/30/18 23:44 25 MG Vitamin B Complex/ Vitamin C (Krista-Beatriz) 1 tab DAILY 11/25/18 09:00 11/30/18 08:59 1 TAB Vitamin D (Vitamin D3) 1,000 unit DAILY 11/25/18 09:00 11/30/18 08:58 1,000 UNIT Labs: Lab Laboratory Tests Test 11/30/18 07:46 11/30/18 11:15 11/30/18 11:59 11/30/18 18:15 Glucose (Fingerstick) 104 mg/dL (70-99) 128 mg/dL (70-99) 111 mg/dL (70-99) O2 Saturation 97 % (92-99) Arterial Blood pH 7.41 (7.35-7.45) Arterial Blood pCO2 at Patient Temp 47 mmHg (35-46) Arterial Blood pO2 at Patient Temp 115 mmHg (65-108) Arterial Blood HCO3 29 mmol/L (21-28) Arterial Blood Base Excess 4 mmol/L (-3-3) FiO2 24 Test 11/30/18 19:59 12/01/18 05:15 Glucose (Fingerstick) 71 mg/dL (70-99) White Blood Count 6.1 x10^3/uL (4.0-11.0) Red Blood Count 2.39 x10^6/uL (4.30-5.70) Hemoglobin 7.3 g/dL (13.0-17.5) Hematocrit 22.1 % (39.0-53.0) Mean Corpuscular Volume 92 fL (79-100) Mean Corpuscular Hemoglobin 31 pg (25-35) Mean Corpuscular Hemoglobin Concent 33 g/dL (31-37) Red Cell Distribution Width 18.7 % (11.5-14.5) Platelet Count 53 x10^3/uL (140-400) Neutrophils (%) (Auto) 60 % (31-73) Lymphocytes (%) (Auto) 21 % (24-48) Monocytes (%) (Auto) 10 % (0-9) Eosinophils (%) (Auto) 8 % (0-3) Basophils (%) (Auto) 0 % (0-3) Neutrophils # (Auto) 3.6 x10^3uL (1.8-7.7) Lymphocytes # (Auto) 1.3 x10^3/uL (1.0-4.8) Monocytes # (Auto) 0.6 x10^3/uL (0.0-1.1) Eosinophils # (Auto) 0.5 x10^3/uL (0.0-0.7) Basophils # (Auto) 0.0 x10^3/uL (0.0-0.2) Sodium Level 140 mmol/L (136-145) Potassium Level 4.4 mmol/L (3.5-5.1) Chloride Level 102 mmol/L (98-107) Carbon Dioxide Level 31 mmol/L (21-32) Anion Gap 7 (6-14) Blood Urea Nitrogen 25 mg/dL (8-26) Creatinine 5.4 mg/dL (0.7-1.3) Estimated GFR (Cockcroft-Gault) 12.5 Glucose Level 121 mg/dL (70-99) Calcium Level 8.5 mg/dL (8.5-10.1) Phosphorus Level 3.3 mg/dL (2.6-4.7) Magnesium Level 2.0 mg/dL (1.8-2.4) Albumin 2.7 g/dL (3.4-5.0) Objective: Assessment: Recent 1 st toe amp with developing gangrene, s/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 (h/o MSSA, Enterobacter and VRE). ESR 90 Right lateral malleolus wound s/p sharp excisional debridement removing necrotic subcutaneous tissue, 11/02. -11/02. Enterobacter aerogenes, Cipro sensitive, VRE (linezolid & Dapto sensistive; PCN resistent) and Gram variable nuria not ID PAD s/p angio 11/03. ESRD/HD Diarrhea/loose stools. C. diff neg Thrombocytopenia - on Zyvox,off zyvox Nausea Plan: Plan of Care Nausea less likely from daptomycin and merrem as pt had been on the same during last admission starting hbo tx today no radha episodes per rn since transfer yesterday dc plans in process Discharging to [facility] when can be arranged however have issues with cost of Daptomycin Zyvox causes issue with Thrombocytopenia so not an option Continue Dapto and meropenem Soc Service to check cost of Tigecycline as possible option though latter can cause nausea would avoid giving a test dose until nausea subsides CPK 35 Repeat CBC in am monitor platelets When ready for dc home Every Wednesday CBC, ESR, CPK. Fax results to [phone] f/u appt with us in 1-2 weeks f/u with vascular as directed HBO therapy - wound care team following LARISA MONTAGUE MD Dec 01, 2018 07:13
[2018-12-01] MEDS: ONDANSETRON ODT 4 MG TAB.RAPDIS. PO PRN (07:30)
[2018-12-01] MEDS: INSULIN LISPRO 300 UNITS/3 ML INSULN.PEN. SQ SCH ×3 (08:00→17:00)
[2018-12-01] MEDS: CLOPIDOGREL BISULFATE 75 MG TABLET PO SCH (09:00)
[2018-12-01] MEDS: CHOLECALCIFEROL (VITAMIN D3) 1,000 UNIT TABLET PO SCH (09:23)
[2018-12-01] MEDS: LACTOBACILLUS RHAMNOSUS GG 1 CAPSULE. PO SCH ×2 (09:23→20:58)
[2018-12-01] MEDS: CYANOCOBALAMIN (VITAMIN B-12) 1,000 MCG TABLET. PO SCH (09:23)
[2018-12-01] MEDS: FOLIC/VIT B COMP W-C (RENAL) TABLET. PO SCH (09:23)
[2018-12-01] MEDS: ASPIRIN CHEWABLE 81 MG TABLET. PO SCH (09:23)
[2018-12-01] MEDS: ALLOPURINOL 100 MG TABLET. PO SCH (09:23)
[2018-12-01] MEDS: SEVELAMER CARBONATE 800 MG TABLET. PO SCH ×3 (09:23→17:22)
[2018-12-01] MEDS: NYSTATIN TOPICAL POWDER 15GM BOTTLE. TP SCH ×2 (09:24→20:58)
[2018-12-01 11:14] VITALS: BP 91/55
--- NOTE | 2018-12-01 11:34 | PDOC ---
Provider Note Provider Note Vascular S: Patient with complaints of nausea. Daughter at bedside O: Awake and alert VSS, afebrile Dressings dry and intact to right foot. Prevalon boot in place. A/P: S/P recent amputation rt 1st toe, some areas of necrosis S/P recent angiogram showing severe distal tibial disease. Discussed with wound care, re-evaluation and possibly resuming wound vac. HBO-evaluation in process. Discussed with SS, if patient is to remain in hospital recommend to start HBO now, this gives the patient the best option to salvage his leg. SS to also continue efforts to coordinate as outpatient along with dialysis. If unsuccessful healing with wound care and HBO patient may need BKA. Antibiotics per ID Pt. with CRF on dialysis/DM/PVD, US of AVF demonstrates patent fistula with no central stenosis. [facility] and with Dr. Byers on 12/22/2018 1:45 DILLON MALDONADO APRN Dec 01, 2018 11:34
--- NOTE | 2018-12-01 11:52 | PDOC ---
SUBJECTIVE ROS F/up for ESRD on HD MWF Pt claims that he has been having loose stools but RN reports none recently CVS: no Orthopnea, no CP RESP: no SOB, no HUGGINS GI: no Nausea, no Vomiting - ? Diarrhea : no Dysuria, no Urgency OBJECTIVE Vital Signs Vital Signs Date Time Temp Pulse Resp B/P (MAP) Pulse Ox O2 Delivery O2 Flow Rate FiO2 12/01/18 11:14 98.8 66 18 91/55 (67) 100 Nasal Cannula 2.0 98.8 I & 0 Intake and Output 12/01/18 07:01 Intake Total 950 ml Balance 950 ml Intake Oral 900 ml IV Total 50 ml # Voids 1 # Bowel Movements 3 PHYSICAL EXAM Physical Exam GEN: Awake, Oriented x 2- 3, In no distress EYES: Vision Unchanged, Conjunctiva Normal EN: No EN Drainage, Mucous Membranes moist NECK: no JVD, no JVP, Supple, no Thyromegaly; short thick CVS: S1S2, no Murmur, No Gallop, No Rub,no Edema RESP: no Rales, no Rhonchi,no Acc. Muscle Use GI: BS + ve, NO Bruit, Non Tender, Non Distended : no CVA tenderness, no Suprapubic Tenderness DIAGNOSIS/ASSESSMENT Assessment & Plan ESRD: Current fluid and E-lyte status does not necessitate emergent need for dialysis. Will re-evaluate for dialysis in the am and continue on MWF schedule. Hyperkalemia : now resolved ANEMIA; Aranesp as ordered, Transfuse with next HD as needed - suspect he will need BT in am HypoTN: with OCc Bradycardia - will use Vol repletion due to reported diarrhea and assess response. BONE & MINERAL: Follow phosphorus levels and alter binder regimen as needed. WNL for now Right foot wound: Antibiotics + HBO as an outpatient are being set up. We'll attempt to coordinate this with dialysis as an outpatient if possible - D/w VS [employer] Discussed Plan of Care with family at bedside over the phone DIAGNOSIS/ASSESSMENT Assessment & Plan COMMENT/RELEVANT DATA Meds Current Medications Medications (Trade) Dose Ordered Sig/Bhavesh Start Time Stop Time Status Last Admin Dose Admin Acetaminophen (Tylenol) 325 mg PRN Q4HRS PRN 11/24/18 20:30 Acetaminophen/ Hydrocodone Bitart (Lortab 5/325) 1 tab PRN Q4HRS PRN 11/24/18 20:30 11/30/18 11:04 DC 11/29/18 20:52 1 TAB Albumin Human 200 ml @ 100 mls/hr 1X ONCE 11/30/18 16:45 11/30/18 18:44 DC Allopurinol (Zyloprim) 100 mg DAILY 11/25/18 09:00 12/01/18 09:23 100 MG Aspirin (Children'S Aspirin) 81 mg DAILY 11/25/18 09:00 12/01/18 09:23 81 MG Atorvastatin Calcium (Lipitor) 40 mg HS 11/24/18 21:00 11/30/18 20:18 40 MG Carvedilol (Coreg) 3.125 mg BIDWMEALS 11/24/18 21:00 11/30/18 10:19 DC 11/29/18 18:49 3.125 MG Clopidogrel Bisulfate (Plavix) 75 mg DAILY 11/25/18 09:00 11/30/18 08:57 75 MG Collagenase (Santyl) 1 judi DAILY 11/25/18 10:00 11/30/18 09:00 1 JUDI Cyanocobalamin (Vitamin B-12) 1,000 mcg DAILY 11/25/18 09:00 12/01/18 09:23 1,000 MCG Daptomycin 690 mg/ Sodium Chloride 50 ml @ 100 mls/hr MoWeFr@1600 11/25/18 16:00 11/30/18 20:25 100 MLS/HR Darbepoetin Reinaldo (Aranesp) 100 mcg WEEKLYHS 11/30/18 21:00 11/30/18 20:22 100 MCG Dextrose (Dextrose 50%-Water Syringe) 12.5 gm PRN Q15MIN PRN 11/24/18 20:45 Heparin Sodium (Porcine) (Heparin Sodium) 5,000 unit Q12HR 11/25/18 21:00 11/28/18 09:44 DC 11/27/18 20:28 5,000 UNIT Info (PHARMACY MONITORING -- do not chart) 1 each PRN DAILY PRN 11/30/18 08:30 Insulin Human Lispro (HumaLOG) 0-5 UNITS BG 300-39... TIDWMEALS 11/25/18 08:00 Lactobacillus Rhamnosus (Culturelle) 1 cap BID 11/24/18 21:00 12/01/18 09:23 1 CAP Linezolid (Zyvox) 600 mg BID 11/25/18 11:00 11/28/18 10:04 DC 11/28/18 08:48 600 MG Magnesium Sulfate 50 ml @ 25 mls/hr 1X ONCE 11/30/18 10:00 11/30/18 11:59 DC 11/30/18 10:44 25 MLS/HR Meropenem 500 mg/ Sodium Chloride 50 ml @ 100 mls/hr DAILY16 11/25/18 16:00 11/30/18 20:02 100 MLS/HR Nystatin (Nystop) 1 judi BID 11/30/18 12:00 12/01/18 09:24 1 JUDI Ondansetron HCl (Zofran Odt) 4 mg PRN Q6HRS PRN 11/27/18 02:15 12/01/18 07:30 4 MG Pantoprazole Sodium (Protonix) 40 mg DAILYAC 11/25/18 07:30 12/01/18 06:54 40 MG Pregabalin (Lyrica) 50 mg HS 11/24/18 21:00 11/30/18 20:18 50 MG Sevelamer Carbonate (Renvela) 800 mg TIDWMEALS 11/25/18 08:00 12/01/18 09:23 800 MG Sodium Chloride 1,000 ml @ 1,000 mls/hr Q1H PRN 11/30/18 10:00 11/30/18 16:30 DC Tramadol HCl (Ultram) 25 mg PRN Q6HRS PRN 11/30/18 11:00 11/30/18 23:44 25 MG Vitamin B Complex/ Vitamin C (Krista-Beatriz) 1 tab DAILY 11/25/18 09:00 12/01/18 09:23 1 TAB Vitamin D (Vitamin D3) 1,000 unit DAILY 11/25/18 09:00 12/01/18 09:23 1,000 UNIT Lab Laboratory Tests Test 11/30/18 11:59 11/30/18 18:15 11/30/18 19:59 12/01/18 05:15 Glucose (Fingerstick) 111 mg/dL (70-99) 71 mg/dL (70-99) O2 Saturation 97 % (92-99) Arterial Blood pH 7.41 (7.35-7.45) Arterial Blood pCO2 at Patient Temp 47 mmHg (35-46) Arterial Blood pO2 at Patient Temp 115 mmHg (65-108) Arterial Blood HCO3 29 mmol/L (21-28) Arterial Blood Base Excess 4 mmol/L (-3-3) FiO2 24 White Blood Count 6.1 x10^3/uL (4.0-11.0) Red Blood Count 2.39 x10^6/uL (4.30-5.70) Hemoglobin 7.3 g/dL (13.0-17.5) Hematocrit 22.1 % (39.0-53.0) Mean Corpuscular Volume 92 fL (79-100) Mean Corpuscular Hemoglobin 31 pg (25-35) Mean Corpuscular Hemoglobin Concent 33 g/dL (31-37) Red Cell Distribution Width 18.7 % (11.5-14.5) Platelet Count 53 x10^3/uL (140-400) Neutrophils (%) (Auto) 60 % (31-73) Lymphocytes (%) (Auto) 21 % (24-48) Monocytes (%) (Auto) 10 % (0-9) Eosinophils (%) (Auto) 8 % (0-3) Basophils (%) (Auto) 0 % (0-3) Neutrophils # (Auto) 3.6 x10^3uL (1.8-7.7) Lymphocytes # (Auto) 1.3 x10^3/uL (1.0-4.8) Monocytes # (Auto) 0.6 x10^3/uL (0.0-1.1) Eosinophils # (Auto) 0.5 x10^3/uL (0.0-0.7) Basophils # (Auto) 0.0 x10^3/uL (0.0-0.2) Sodium Level 140 mmol/L (136-145) Potassium Level 4.4 mmol/L (3.5-5.1) Chloride Level 102 mmol/L (98-107) Carbon Dioxide Level 31 mmol/L (21-32) Anion Gap 7 (6-14) Blood Urea Nitrogen 25 mg/dL (8-26) Creatinine 5.4 mg/dL (0.7-1.3) Estimated GFR (Cockcroft-Gault) 12.5 Glucose Level 121 mg/dL (70-99) Calcium Level 8.5 mg/dL (8.5-10.1) Phosphorus Level 3.3 mg/dL (2.6-4.7) Magnesium Level 2.0 mg/dL (1.8-2.4) Albumin 2.7 g/dL (3.4-5.0) Test 12/01/18 07:57 Glucose (Fingerstick) 76 mg/dL (70-99) Results All relevant outside records, renal labs, imaging studies, telemetry/EKG's were reviewed. JANAE MONTAGUE MD Dec 01, 2018 11:52
[2018-12-01] MEDS: COLLAGENASE 250 UNIT/GM TOPICAL OINTMENT 30GM TUBE. TP SCH (11:56)
--- NOTE | 2018-12-01 12:17 | PDOC ---
PROGRESS NOTES Subjective Subjective has nausea and vomiting. platelet count lower 53K. SNF will not accept daptomycin due to expense. discussed with daughter. Objective Objective Vital Signs Date Time Temp Pulse Resp B/P (MAP) Pulse Ox O2 Delivery O2 Flow Rate FiO2 12/01/18 11:14 98.8 66 18 91/55 (67) 100 Nasal Cannula 2.0 98.8 Intake and Output 12/01/18 07:01 Intake Total 950 ml Balance 950 ml Intake Oral 900 ml IV Total 50 ml # Voids 1 # Bowel Movements 3 Physical Exam Abdomen: Soft, Other (obese) Heart: Normal S1, Normal S2 Extremities: No edema, Other (left great toe amputation . right ankle and right foot wound) General: Alert HEENT: Atraumatic Lungs: Clear to auscultation Neuro: Normal speech Psych/Mental Status: Mental status NL Skin: No rashes Assessment Assessment necrotic right foot wound osteomyelitis of right great toe and first metatarsal right ankle wound with granulation tissue severe PAD RLE involving tibial and pedal vessels ESRD on hemodialysis -- diabetes mellitus type 2 with peripheral neuropathy morbid obesity debility hypomagnesemia treated thrombocytopenia worsesuspect due to zyvox nausea and vomiting Plan Plan of Care zofran ac tid and prn start metoclopramide consult dr. silveira ID to address daptomycin as too expensive hemodialysis tomorrow may need to change dialysis on so he can receive HBO rx -- d/c tramadol GI consult Comment Review of Relevant I have reviewed the following items simeon (where applicable) has been applied. Labs Laboratory Tests Test 11/29/18 20:16 11/30/18 05:10 11/30/18 07:46 11/30/18 11:15 Glucose (Fingerstick) 108 mg/dL (70-99) 104 mg/dL (70-99) 128 mg/dL (70-99) White Blood Count 4.9 x10^3/uL (4.0-11.0) Red Blood Count 2.49 x10^6/uL (4.30-5.70) Hemoglobin 7.7 g/dL (13.0-17.5) Hematocrit 23.0 % (39.0-53.0) Mean Corpuscular Volume 92 fL (79-100) Mean Corpuscular Hemoglobin 31 pg (25-35) Mean Corpuscular Hemoglobin Concent 34 g/dL (31-37) Red Cell Distribution Width 19.0 % (11.5-14.5) Platelet Count 71 x10^3/uL (140-400) Neutrophils (%) (Auto) 62 % (31-73) Lymphocytes (%) (Auto) 23 % (24-48) Monocytes (%) (Auto) 11 % (0-9) Eosinophils (%) (Auto) 5 % (0-3) Basophils (%) (Auto) 0 % (0-3) Neutrophils # (Auto) 3.0 x10^3uL (1.8-7.7) Lymphocytes # (Auto) 1.1 x10^3/uL (1.0-4.8) Monocytes # (Auto) 0.5 x10^3/uL (0.0-1.1) Eosinophils # (Auto) 0.2 x10^3/uL (0.0-0.7) Basophils # (Auto) 0.0 x10^3/uL (0.0-0.2) Sodium Level 139 mmol/L (136-145) Potassium Level 4.6 mmol/L (3.5-5.1) Chloride Level 101 mmol/L (98-107) Carbon Dioxide Level 29 mmol/L (21-32) Anion Gap 9 (6-14) Blood Urea Nitrogen 38 mg/dL (8-26) Creatinine 6.1 mg/dL (0.7-1.3) Estimated GFR (Cockcroft-Gault) 10.9 Glucose Level 107 mg/dL (70-99) Calcium Level 8.2 mg/dL (8.5-10.1) Phosphorus Level 4.0 mg/dL (2.6-4.7) Magnesium Level 1.7 mg/dL (1.8-2.4) Albumin 2.1 g/dL (3.4-5.0) Thyroid Stimulating Hormone (TSH) 0.101 uIU/mL (0.358-3.74) Free Thyroxine 0.99 ng/dL (0.76-1.46) Test 11/30/18 11:59 11/30/18 18:15 11/30/18 19:59 12/01/18 05:15 Glucose (Fingerstick) 111 mg/dL (70-99) 71 mg/dL (70-99) O2 Saturation 97 % (92-99) Arterial Blood pH 7.41 (7.35-7.45) Arterial Blood pCO2 at Patient Temp 47 mmHg (35-46) Arterial Blood pO2 at Patient Temp 115 mmHg (65-108) Arterial Blood HCO3 29 mmol/L (21-28) Arterial Blood Base Excess 4 mmol/L (-3-3) FiO2 24 White Blood Count 6.1 x10^3/uL (4.0-11.0) Red Blood Count 2.39 x10^6/uL (4.30-5.70) Hemoglobin 7.3 g/dL (13.0-17.5) Hematocrit 22.1 % (39.0-53.0) Mean Corpuscular Volume 92 fL (79-100) Mean Corpuscular Hemoglobin 31 pg (25-35) Mean Corpuscular Hemoglobin Concent 33 g/dL (31-37) Red Cell Distribution Width 18.7 % (11.5-14.5) Platelet Count 53 x10^3/uL (140-400) Neutrophils (%) (Auto) 60 % (31-73) Lymphocytes (%) (Auto) 21 % (24-48) Monocytes (%) (Auto) 10 % (0-9) Eosinophils (%) (Auto) 8 % (0-3) Basophils (%) (Auto) 0 % (0-3) Neutrophils # (Auto) 3.6 x10^3uL (1.8-7.7) Lymphocytes # (Auto) 1.3 x10^3/uL (1.0-4.8) Monocytes # (Auto) 0.6 x10^3/uL (0.0-1.1) Eosinophils # (Auto) 0.5 x10^3/uL (0.0-0.7) Basophils # (Auto) 0.0 x10^3/uL (0.0-0.2) Sodium Level 140 mmol/L (136-145) Potassium Level 4.4 mmol/L (3.5-5.1) Chloride Level 102 mmol/L (98-107) Carbon Dioxide Level 31 mmol/L (21-32) Anion Gap 7 (6-14) Blood Urea Nitrogen 25 mg/dL (8-26) Creatinine 5.4 mg/dL (0.7-1.3) Estimated GFR (Cockcroft-Gault) 12.5 Glucose Level 121 mg/dL (70-99) Calcium Level 8.5 mg/dL (8.5-10.1) Phosphorus Level 3.3 mg/dL (2.6-4.7) Magnesium Level 2.0 mg/dL (1.8-2.4) Albumin 2.7 g/dL (3.4-5.0) Test 12/01/18 07:57 12/01/18 11:53 Glucose (Fingerstick) 76 mg/dL (70-99) 97 mg/dL (70-99) Laboratory Tests Test 11/30/18 18:15 11/30/18 19:59 12/01/18 05:15 12/01/18 07:57 O2 Saturation 97 % (92-99) Arterial Blood pH 7.41 (7.35-7.45) Arterial Blood pCO2 at Patient Temp 47 mmHg (35-46) Arterial Blood pO2 at Patient Temp 115 mmHg (65-108) Arterial Blood HCO3 29 mmol/L (21-28) Arterial Blood Base Excess 4 mmol/L (-3-3) FiO2 24 Glucose (Fingerstick) 71 mg/dL (70-99) 76 mg/dL (70-99) White Blood Count 6.1 x10^3/uL (4.0-11.0) Red Blood Count 2.39 x10^6/uL (4.30-5.70) Hemoglobin 7.3 g/dL (13.0-17.5) Hematocrit 22.1 % (39.0-53.0) Mean Corpuscular Volume 92 fL (79-100) Mean Corpuscular Hemoglobin 31 pg (25-35) Mean Corpuscular Hemoglobin Concent 33 g/dL (31-37) Red Cell Distribution Width 18.7 % (11.5-14.5) Platelet Count 53 x10^3/uL (140-400) Neutrophils (%) (Auto) 60 % (31-73) Lymphocytes (%) (Auto) 21 % (24-48) Monocytes (%) (Auto) 10 % (0-9) Eosinophils (%) (Auto) 8 % (0-3) Basophils (%) (Auto) 0 % (0-3) Neutrophils # (Auto) 3.6 x10^3uL (1.8-7.7) Lymphocytes # (Auto) 1.3 x10^3/uL (1.0-4.8) Monocytes # (Auto) 0.6 x10^3/uL (0.0-1.1) Eosinophils # (Auto) 0.5 x10^3/uL (0.0-0.7) Basophils # (Auto) 0.0 x10^3/uL (0.0-0.2) Sodium Level 140 mmol/L (136-145) Potassium Level 4.4 mmol/L (3.5-5.1) Chloride Level 102 mmol/L (98-107) Carbon Dioxide Level 31 mmol/L (21-32) Anion Gap 7 (6-14) Blood Urea Nitrogen 25 mg/dL (8-26) Creatinine 5.4 mg/dL (0.7-1.3) Estimated GFR (Cockcroft-Gault) 12.5 Glucose Level 121 mg/dL (70-99) Calcium Level 8.5 mg/dL (8.5-10.1) Phosphorus Level 3.3 mg/dL (2.6-4.7) Magnesium Level 2.0 mg/dL (1.8-2.4) Albumin 2.7 g/dL (3.4-5.0) Test 12/01/18 11:53 Glucose (Fingerstick) 97 mg/dL (70-99) Medications Current Medications Acetaminophen (Tylenol) 325 mg PRN Q4HRS PRN PO MILD PAIN / TEMP; Start at 20:30 Allopurinol (Zyloprim) 100 mg DAILY PO Last administered on 12/01/18 09:23; Start 11/25/18 at 09:00 Aspirin (Children'S Aspirin) 81 mg DAILY PO Last administered on 12/01/18 09:23 ; Start 11/25/18 at 09:00 Atorvastatin Calcium (Lipitor) 40 mg HS PO Last administered on 11/30/18 20:18 ; Start 11/24/18 at 21:00 Carvedilol (Coreg) 3.125 mg BIDWMEALS PO Last administered on 11/29/18 18:49; Start 11/24/18 at 21:00; Stop 11/30/18 at 10:19; Status DC Vitamin D (Vitamin D3) 1,000 unit DAILY PO Last administered on 12/01/18 09:23 ; Start 11/25/18 at 09:00 Clopidogrel Bisulfate (Plavix) 75 mg DAILY PO Last administered on 11/30/18 08: 57; Start 11/25/18 at 09:00 Cyanocobalamin (Vitamin B-12) 1,000 mcg DAILY PO Last administered on 12/01/18 09:23; Start 11/25/18 at 09:00 Acetaminophen/ Hydrocodone Bitart (Lortab 5/325) 1 tab PRN Q4HRS PRN PO MODERATE - SEVERE PAIN Last administered on 11/29/18 20:52; Start 11/24/18 at 20:30; Stop 11/30/18 at 11:04; Status DC Pregabalin (Lyrica) 50 mg HS PO Last administered on 11/30/18 20:18; Start at 21:00; Stop 12/01/18 at 12:12; Status DC Sevelamer Carbonate (Renvela) 800 mg TIDWMEALS PO Last administered on 11:56; Start 11/25/18 at 08:00 Vitamin B Complex/ Vitamin C (Krista-Beatriz) 1 tab DAILY PO Last administered on 09:23; Start 11/25/18 at 09:00 Lactobacillus Rhamnosus (Culturelle) 1 cap BID PO Last administered on 09:23; Start 11/24/18 at 21:00 Pantoprazole Sodium (Protonix) 40 mg DAILYAC PO Last administered on 12/01/18 06:54; Start 11/25/18 at 07:30 Insulin Human Lispro (HumaLOG) 0-5 UNITS TIDWMEALS SQ ; Start 11/24/18 at 21:00 ; Stop 11/24/18 at 21:57; Status DC Dextrose (Dextrose 50%-Water Syringe) 12.5 gm PRN Q15MIN PRN IV SEE COMMENTS; Start 11/24/18 at 20:45 Insulin Human Lispro (HumaLOG) 0-5 UNITS TIDWMEALS SQ ; Start 11/25/18 at 08:00 ; Stop 11/25/18 at 08:00; Status DC Insulin Human Lispro (HumaLOG) 0-5 UNITS BG 300-39... TIDWMEALS SQ ; Start at 08:00 Collagenase (Santyl) 1 judi DAILY TP Last administered on 12/01/18at 11:56; Start 11/25/18 at 10:00 Meropenem 500 mg/ Sodium Chloride 50 ml @ 100 mls/hr Q12HR IV ; Start at 21:00; Status UNV Daptomycin 690 mg/ Sodium Chloride 50 ml @ 100 mls/hr MoWeFr@1600 IV Last administered on 11/30/18 20:25; Start 11/25/18 at 16:00 Heparin Sodium (Porcine) (Heparin Sodium) 5,000 unit Q12HR SQ Last administered on 11/27/18at 20:28; Start 11/25/18 at 21:00; Stop 11/28/18 at 09 :44; Status DC Meropenem 500 mg/ Sodium Chloride 50 ml @ 100 mls/hr DAILY16 IV Last administered on 11/30/18 20:02; Start 11/25/18 at 16:00 Linezolid (Zyvox) 600 mg BID PO Last administered on 11/28/18at 08:48; Start 11/25/18 at 11:00; Stop 11/28/18 at 10:04; Status DC Info (PHARMACY MONITORING -- do not chart) 1 each PRN DAILY PRN MC SEE COMMENTS ; Start 11/25/18 at 10:45; Stop 11/28/18 at 17:07; Status DC Sodium Chloride 1,000 ml @ 1,000 mls/hr Q1H PRN IV hypotension; Start at 14:30; Stop 11/25/18 at 20:30; Status DC Sodium Chloride 1,000 ml @ 400 mls/hr Q2H30M PRN IV PATENCY; Start 11/25/18 at 14:30; Stop 11/25/18 at 20:30; Status DC Info (PHARMACY MONITORING -- do not chart) 1 each PRN DAILY PRN MC SEE COMMENTS ; Start 11/25/18 at 14:45; Status UNV Info (PHARMACY MONITORING -- do not chart) 1 each PRN DAILY PRN MC SEE COMMENTS ; Start 11/25/18 at 14:45; Status UNV Ondansetron HCl (Zofran Odt) 4 mg PRN Q6HRS PRN PO NAUSEA/VOMITING Last administered on 12/01/18at 07:30; Start 11/27/18 at 02:15 Magnesium Sulfate 50 ml @ 25 mls/hr PRN DAILY PRN IV for Mag < 1.7 on am labs; Start 11/27/18 at 14:00 Sodium Chloride 1,000 ml @ 1,000 mls/hr Q1H PRN IV hypotension; Start at 09:05; Stop 11/28/18 at 15:04; Status DC Albumin Human 200 ml @ 200 mls/hr 1X PRN PRN IV Hypotension; Start 11/28/18 at 09:15; Stop 11/28/18 at 15:14; Status DC Sodium Chloride 1,000 ml @ 400 mls/hr Q2H30M PRN IV PATENCY; Start 11/28/18 at 09:05; Stop 11/28/18 at 21:04; Status DC Info (PHARMACY MONITORING -- do not chart) 1 each PRN DAILY PRN MC SEE COMMENTS ; Start 11/28/18 at 09:15; Stop 11/28/18 at 17:07; Status DC Info (PHARMACY MONITORING -- do not chart) 1 each PRN DAILY PRN MC SEE COMMENTS ; Start 11/28/18 at 09:15 Sodium Chloride 1,000 ml @ 1,000 mls/hr Q1H PRN IV hypotension; Start 11/29/18 at 16:30; Stop 11/29/18 at 23:00; Status DC Info (PHARMACY MONITORING -- do not chart) 1 each PRN DAILY PRN MC SEE COMMENTS ; Start 11/29/18 at 16:45; Status UNV Info (PHARMACY MONITORING -- do not chart) 1 each PRN DAILY PRN MC SEE COMMENTS ; Start 11/29/18 at 16:45; Status UNV Info (PHARMACY MONITORING -- do not chart) 1 each PRN DAILY PRN MC SEE COMMENTS ; Start 11/30/18 at 08:30 Magnesium Sulfate 50 ml @ 25 mls/hr 1X ONCE IV Last administered on 11/30/18at 10:44; Start 11/30/18 at 10:00; Stop 11/30/18 at 11:59; Status DC Darbepoetin Reinaldo (Aranesp) 100 mcg WEEKLYHS SQ Last administered on 11/30/18at 20 :22; Start 11/30/18 at 21:00 Tramadol HCl (Ultram) 25 mg PRN Q6HRS PRN PO MODERATE PAIN Last administered on 11/30/18at 23:44; Start 11/30/18 at 11:00; Stop 12/01/18 at 12:12; Status DC Nystatin (Nystop) 1 judi BID TP Last administered on 12/01/18at 09:24; Start at 12:00 Sodium Chloride 1,000 ml @ 1,000 mls/hr Q1H PRN IV hypotension; Start 11/30/18 at 10:00; Stop 11/30/18 at 16:30; Status DC Albumin Human 200 ml @ 200 mls/hr 1X PRN PRN IV Hypotension; Start 11/30/18 at 10:00; Stop 11/30/18 at 16:30; Status DC Albumin Human 200 ml @ 100 mls/hr 1X ONCE IV ; Start 11/30/18 at 16:45; Stop at 18:44; Status DC Albumin Human 500 ml @ 125 mls/hr Q4H IV ; Start 12/01/18 at 12:00; Stop at 19:59 Pregabalin (Lyrica) 25 mg HS PO ; Start 12/01/18 at 21:00; Status UNV Ondansetron HCl (Zofran Odt) 4 mg TIDAC PO ; Start 12/01/18 at 16:30; Status UNV Metoclopramide HCl (Reglan) 5 mg TIDACHC PO ; Start 12/01/18 at 16:30; Status UNV Active Scripts Active Zofran (Ondansetron Hcl) 4 Mg Tablet 1 Tab PO Q6HRS Zyvox (Linezolid) 600 Mg Tablet 600 Mg PO BID 30 Days Hydrocodone-Apap 5-325 (Hydrocodone Bit/Acetaminophen) 1 Tab Tablet 1 Tab PO PRN Q4HRS PRN 30 Days Aspirin Ec (Aspirin) 81 Mg Tablet.dr 81 Mg PO DAILYWBKFT 30 Days [Pantoprazole] 40 MG Tablet.dr 40 Mg PO DAILYAC 30 Days Humalog (Insulin Lispro) 100 Unit/1 Ml Insuln.pen 0 Units SQ TIDWMEALS 30 Days BG 150-199= 1 units 200-299= 2 units 300-399= 4 units 400-499= 6 units ac tid sliding scale Culturelle (Lactobacillus Rhamnosus Gg) 1 Each Cap.sprink 1 Cap PO BID 30 Days Tylenol (Acetaminophen) 325 Mg Tablet 325 Mg PO PRN Q4HRS PRN 30 Days Carvedilol (Carvedilol) 3.125 Mg Tablet 3.125 Mg PO BIDWMEALS 30 Days Renvela (Sevelamer Carbonate) 800 Mg Tablet 800 Mg PO TIDWMEALS 30 Days Pantoprazole Sodium 40 Mg Tablet.dr 40 Mg PO DAILYAC 30 Days Krista-Beatriz Tablet (Folic Acid/Vitamin B Comp W-C) 0.8 Mg Tablet 1 Tab PO DAILY 30 Days Reported Vitamin B-12 (Cyanocobalamin (Vitamin B-12)) 1,000 Mcg Tablet 1 Tab PO DAILY Allopurinol 100 Mg Tablet 1 Tab PO DAILY Renal Caps Softgel (Folic Acid/Vitamin B Comp W-C) 1 Mg Capsule 1 Cap PO DAILY Acidophilus Lactobacilli (Lactobacillus Acidophilus) 1 Each Capsule 1 Each PO BID Protonix (Pantoprazole Sodium) 20 Mg Tablet.dr 40 Mg PO DAILY Renvela (Sevelamer Carbonate) 800 Mg Tablet 800 Mg PO TIDWMEALS Lyrica (Pregabalin) 50 Mg Capsule 50 Mg PO HS Tylenol (Acetaminophen) 325 Mg Tablet 1 Tab PO PRN Q4HRS Hydrocodone-Apap 5-325 (Hydrocodone Bit/Acetaminophen) 1 Tab Tablet 1 Tab PO PRN Q4HRS PRN Aspirin 81 Mg Tab.chew 81 Mg PO DAILY Carvedilol (Carvedilol) 3.125 Mg Tablet 3.125 Mg PO BIDWMEALS Lipitor (Atorvastatin Calcium) 40 Mg Tablet 40 Mg PO HS Clopidogrel (Clopidogrel Bisulfate) 75 Mg Tablet 75 Mg PO DAILY Vitamin D (Cholecalciferol (Vitamin D3)) 2,000 Unit Capsule 1 Cap PO DAILY [place] 5-325 Tablet (Acetaminophen/Hydrocodone Bitart) 1 Each Tablet 1 Tab PO PRN Q4HRS PRN Lyrica (Pregabalin) 50 Mg Capsule 25 Mg PO HS Clopidogrel (Clopidogrel Bisulfate) 75 Mg Tablet 1 Tab PO DAILY Atorvastatin Calcium 40 Mg Tablet 40 Mg PO HS Allopurinol 100 Mg Tablet 1 Tab PO DAILY Vitamin B-12 (Cyanocobalamin (Vitamin B-12)) 1,000 Mcg Tablet 1 Tab PO DAILY Vitamin D-3 (Cholecalciferol (Vitamin D3)) 2,000 Unit Capsule 1,000 Unit PO DAILY Vitals/I & O Vital Sign - Last 24 Hours 11/30/18 11/30/18 11/30/18 11/30/18 18:03 19:35 19:54 23:00 Temp 98.7 98.8 98.7 98.8 Pulse 60 59 Resp 18 20 B/P (MAP) 113/65 (81) 128/52 (77) Pulse Ox 96 96 O2 Delivery Nasal Cannula Nasal Cannula Nasal Cannula Nasal Cannula O2 Flow Rate 1.0 2.0 2.0 2.0 11/30/18 12/01/18 12/01/18 12/01/18 23:44 00:44 03:25 07:10 Temp 98.4 98.2 98.4 98.2 Pulse 64 58 Resp 18 18 20 16 B/P (MAP) 121/54 (76) 110/60 (77) Pulse Ox 95 95 97 95 O2 Delivery Nasal Cannula Nasal Cannula Nasal Cannula Nasal Cannula O2 Flow Rate 2.0 2.0 2.0 3.0 12/01/18 12/01/18 08:00 11:14 Temp 98.8 98.8 Pulse 66 Resp 18 B/P (MAP) 91/55 (67) Pulse Ox 100 O2 Delivery Nasal Cannula Nasal Cannula O2 Flow Rate 2.0 2.0 Intake and Output 11/30/18 11/30/18 12/01/18 15:01 23:01 07:01 Intake Total 650 ml 300 ml Balance 650 ml 300 ml KIMI TIDWELL MD Dec 01, 2018 12:17
[2018-12-01] MEDS: ALBUMIN HUMAN 5% 500 ML IV SCH ×2 (12:39→17:22)
--- NOTE | 2018-12-01 13:59 | PDOC2 ---
GI CONSULT Reason For Consult: N/v HPI: HPI: 77 y/o male here since 11/25 w/ necrotic foot wound and PAD. GI asked to see today for n/v. Per RN - complains of nausea, tolerating PO, not a great appetite today, no vomiting. Yesterday slept most of the day, then went to dialysis, then ate dinner very quickly and felt nauseated. Has had borderline runny stool today (C Diff negative on 11/28/18). On PPI and Zofran, Reglan added for later. The patient (who is not the greatest historian) says he has felt nauseous for a few days and vomited a couple times several days ago. He also reports diarrhea (says 4 stools today). Thinks symptoms are related to antibiotics. H/o GERD controlled w/ medication (I think on PPI at home). Denies dysphagia. Denies abdominal pain. Denies bleeding. Says nausea is unusual for him. I asked if he felt dizzy - he first said yes, and then no. EGD and colonoscopy (Dr. Coy) in 2012: mild esophagitis, gastric nodule ( hyperplastic polyp on biopsy), adenomatous and hyperplastic colon polyps, diverticulosis. Colonoscopy (Dr. Coy) in 07/2016: two adenomatous polyps in transverse colon, sigmoid diverticulosis. Cholelithiasis on past CT (ordered for elevated lipase in 700-800 range). Denies liver history. On Plavix and ASA. (Per chart, past Warfarin discontinued due to psoas hematoma ). PMH: PMH: A Fib, CAD, HTN, HLD, PAD w/ LE stents, CVA, ESRD on HD, DM, peripheral neuropathy, GERD, cholelithiasis, adenomatous colon polyps, diverticulosis, pacemaker, left great tow amputation, right great tow partial amputation FH: Family History: Other ("I don't think so but I don't remember.") Social History: Smoke: No ALCOHOL: none Drugs: None ROS: GEN: Denies fevers, chills, sweats HEENT: Denies blurred vision, sore throat CV: Denies chest pain RESP: Denies shortness of air, cough GI: Per HPI : Denies hematuria, dysuria ENDO: Denies weight changes NEURO: Denies confusion, dizziness MSK: +weakness +RLQ pain SKIN: Denies jaundice, pruritus Vitals: Vitals: Vital Signs Date Time Temp Pulse Resp B/P (MAP) Pulse Ox O2 Delivery O2 Flow Rate FiO2 12/01/18 11:14 98.8 66 18 91/55 (67) 100 Nasal Cannula 2.0 98.8 Labs: Labs: Laboratory Tests Test 11/30/18 18:15 11/30/18 19:59 12/01/18 05:15 12/01/18 07:57 O2 Saturation 97 % (92-99) Arterial Blood pH 7.41 (7.35-7.45) Arterial Blood pCO2 at Patient Temp 47 mmHg (35-46) Arterial Blood pO2 at Patient Temp 115 mmHg (65-108) Arterial Blood HCO3 29 mmol/L (21-28) Arterial Blood Base Excess 4 mmol/L (-3-3) FiO2 24 Glucose (Fingerstick) 71 mg/dL (70-99) 76 mg/dL (70-99) White Blood Count 6.1 x10^3/uL (4.0-11.0) Red Blood Count 2.39 x10^6/uL (4.30-5.70) Hemoglobin 7.3 g/dL (13.0-17.5) Hematocrit 22.1 % (39.0-53.0) Mean Corpuscular Volume 92 fL (79-100) Mean Corpuscular Hemoglobin 31 pg (25-35) Mean Corpuscular Hemoglobin Concent 33 g/dL (31-37) Red Cell Distribution Width 18.7 % (11.5-14.5) Platelet Count 53 x10^3/uL (140-400) Neutrophils (%) (Auto) 60 % (31-73) Lymphocytes (%) (Auto) 21 % (24-48) Monocytes (%) (Auto) 10 % (0-9) Eosinophils (%) (Auto) 8 % (0-3) Basophils (%) (Auto) 0 % (0-3) Neutrophils # (Auto) 3.6 x10^3uL (1.8-7.7) Lymphocytes # (Auto) 1.3 x10^3/uL (1.0-4.8) Monocytes # (Auto) 0.6 x10^3/uL (0.0-1.1) Eosinophils # (Auto) 0.5 x10^3/uL (0.0-0.7) Basophils # (Auto) 0.0 x10^3/uL (0.0-0.2) Sodium Level 140 mmol/L (136-145) Potassium Level 4.4 mmol/L (3.5-5.1) Chloride Level 102 mmol/L (98-107) Carbon Dioxide Level 31 mmol/L (21-32) Anion Gap 7 (6-14) Blood Urea Nitrogen 25 mg/dL (8-26) Creatinine 5.4 mg/dL (0.7-1.3) Estimated GFR (Cockcroft-Gault) 12.5 Glucose Level 121 mg/dL (70-99) Calcium Level 8.5 mg/dL (8.5-10.1) Phosphorus Level 3.3 mg/dL (2.6-4.7) Magnesium Level 2.0 mg/dL (1.8-2.4) Albumin 2.7 g/dL (3.4-5.0) Test 12/01/18 11:53 Glucose (Fingerstick) 97 mg/dL (70-99) Allergies: Coded Allergies: I S O L A T I O N *CONTACT* (Verified Allergy, Unknown, 11/25/18) vre No Known Medication Allergies (Verified Allergy, Unknown, 11/25/18) Medications: Current Medications Medications (Trade) Dose Ordered Sig/Bhavesh Route PRN Reason Start Time Stop Time Status Last Admin Dose Admin Darbepoetin Reinaldo (Aranesp) 100 mcg WEEKLYHS SQ 11/30/18 21:00 11/30/18 20:22 Albumin Human 500 ml @ 125 mls/hr Q4H IV 12/01/18 12:00 12/01/18 19:59 12/01/18 12:39 Imaging: Imaging: CXR IMPRESSION: Stable cardiomegaly without acute cardiopulmonary process. UE US IMPRESSION: Patent brachiocephalic arteriovenous fistula in the right upper extremity. PE: GEN: NAD HEENT: Atraumatic, PERRL LUNGS: CTAB, NC HEART: RRR ABD: NABS, S/ND/NT EXTREMITY/SKIN: LLE w/ sock, RLE w/ sock and boot NEURO/PSYCH: A & O �3 A/P: A/P: Right toe wound, PAD ESRD, CAD, DM N/v GERD - on PPI, mild esophagitis on past EGD CRC screen, h/o adenomatous polyps - UTD Diverticulosis Cholelithiasis - on past CT ACD -- Plans to try Reglan. Will review additional recs w/ Dr. Ty. KARLA WATT Dec 01, 2018 13:59
[2018-12-01] MEDS: HYDROcodone/APAP 5/325MG 1 TAB TABLET PO PRN ×2 (14:39→22:36)
[2018-12-01 15:10] VITALS: BP 98/62
[2018-12-01] MEDS: MEROPENEM 500 MG in IV NORMAL SALINE 50ML 50 ML IV SCH (17:22)
[2018-12-01] MEDS: METOCLOPRAMIDE 5 MG TABLET. PO SCH ×2 (17:22→20:58)
[2018-12-01] MEDS: ONDANSETRON ODT 4 MG TAB.RAPDIS. PO SCH (17:27)
[2018-12-01 19:43] VITALS: BP 134/79
[2018-12-01] MEDS: PREGABALIN 25 MG CAPSULE PO SCH (20:57)
[2018-12-01] MEDS: ATORVASTATIN CALCIUM 40 MG TABLET. PO SCH (20:58)
[2018-12-01 23:33] VITALS: BP 138/68
[2018-12-02] VITALS (11 sets, daily range): BP systolic 106–136; BP diastolic 44–67
[2018-12-02 05:18] LABS: BASO % 0 % (0-3); EOS # 0.4 x10^3/uL (0.0-0.7); EOS % 9 % (0-3); LYMPH # 1.1 x10^3/uL (1.0-4.8); LYMPH % 22 % (24-48); MEAN CORPUSCULAR HEMOGLOBIN 31 pg (25-35); MEAN CORPUSCULAR HGB CONC 33 g/dL (31-37); MEAN CORPUSCULAR VOLUME 92 fL (79-100); MONO # 0.6 x10^3/uL (0.0-1.1); MONO % 12 % (0-9); NEUT % 58 % (31-73); RED BLOOD COUNT 2.27 x10^6/uL (4.30-5.70); RED CELL DISTRIBUTION WIDTH 18.9 % (11.5-14.5); WHITE BLOOD COUNT 5.3 x10^3/uL (4.0-11.0)
[2018-12-02 05:26] LABS: HEMATOCRIT 20.9 % (39.0-53.0)
[2018-12-02 05:36] LABS: CALCIUM 8.7 mg/dL (8.5-10.1); CREATININE 7.1 mg/dL (0.7-1.3); GFR 9.1; PHOSPHORUS 2.9 mg/dL (2.6-4.7)
[2018-12-02] MEDS: METOCLOPRAMIDE 5 MG TABLET. PO SCH ×6 (07:30→21:05)
--- NOTE | 2018-12-02 08:13 | PDOC ---
Infectious Disease Note Subjective: Subjective pt drowsy but arousable denies any n/v/d/abdo pain underwent hbo tx yesterday had pain and took some lortab for pain control awaiting placement ROS: ROS Negative except for above. Vital Signs: Vital Signs Vital Signs Date Time Temp Pulse Resp B/P (MAP) Pulse Ox O2 Delivery O2 Flow Rate FiO2 12/02/18 07:00 99.1 59 20 106/44 (64) 92 Room Air 99.1 12/01/18 20:00 2.0 Physical Exam: PHYSICAL EXAM GENERAL: NAD - in chair HEENT: Oral cavity clear NECK: Supple. LUNGS: Clear HEART: S1, S2 ABDOMEN: Soft, NT, BS present - obese EXTREMITIES: Trace edema; right 1st toe amp site dressed AV fistula NEUROLOGIC: Alert and oriented SKIN: No rash Right SCL (11/10) clean Medications: Inpatient Meds: Current Medications Medications (Trade) Dose Ordered Sig/Bhavesh Start Time Stop Time Status Last Admin Dose Admin Acetaminophen (Tylenol) 325 mg PRN Q4HRS PRN 11/24/18 20:30 Acetaminophen/ Hydrocodone Bitart (Lortab 5/325) 0.5 tab PRN Q4HRS PRN 12/01/18 12:30 12/01/18 22:36 0.5 TAB Albumin Human 500 ml @ 125 mls/hr Q4H 12/01/18 12:00 12/01/18 19:59 DC 12/01/18 17:22 125 MLS/HR Allopurinol (Zyloprim) 100 mg DAILY 11/25/18 09:00 12/01/18 09:23 100 MG Aspirin (Children'S Aspirin) 81 mg DAILY 11/25/18 09:00 12/01/18 09:23 81 MG Atorvastatin Calcium (Lipitor) 40 mg HS 11/24/18 21:00 12/01/18 20:58 40 MG Carvedilol (Coreg) 3.125 mg BIDWMEALS 11/24/18 21:00 11/30/18 10:19 DC 11/29/18 18:49 3.125 MG Clopidogrel Bisulfate (Plavix) 75 mg DAILY 11/25/18 09:00 11/30/18 08:57 75 MG Collagenase (Santyl) 1 judi DAILY 11/25/18 10:00 12/01/18 11:56 1 JUDI Cyanocobalamin (Vitamin B-12) 1,000 mcg DAILY 11/25/18 09:00 12/01/18 09:23 1,000 MCG Daptomycin 690 mg/ Sodium Chloride 50 ml @ 100 mls/hr MoWeFr@1600 11/25/18 16:00 11/30/18 20:25 100 MLS/HR Darbepoetin Reinaldo (Aranesp) 100 mcg WEEKLYHS 11/30/18 21:00 11/30/18 20:22 100 MCG Dextrose (Dextrose 50%-Water Syringe) 12.5 gm PRN Q15MIN PRN 11/24/18 20:45 Heparin Sodium (Porcine) (Heparin Sodium) 5,000 unit Q12HR 11/25/18 21:00 11/28/18 09:44 DC 11/27/18 20:28 5,000 UNIT Info (PHARMACY MONITORING -- do not chart) 1 each PRN DAILY PRN 11/30/18 08:30 Insulin Human Lispro (HumaLOG) 0-5 UNITS BG 300-39... TIDWMEALS 11/25/18 08:00 Lactobacillus Rhamnosus (Culturelle) 1 cap BID 11/24/18 21:00 12/01/18 20:58 1 CAP Linezolid (Zyvox) 600 mg BID 11/25/18 11:00 11/28/18 10:04 DC 11/28/18 08:48 600 MG Magnesium Sulfate 50 ml @ 25 mls/hr 1X ONCE 11/30/18 10:00 11/30/18 11:59 DC 11/30/18 10:44 25 MLS/HR Meropenem 500 mg/ Sodium Chloride 50 ml @ 100 mls/hr DAILY16 11/25/18 16:00 12/01/18 17:22 100 MLS/HR Metoclopramide HCl (Reglan) 5 mg TIDACHC 12/01/18 16:30 12/01/18 20:58 5 MG Nystatin (Nystop) 1 judi BID 11/30/18 12:00 12/01/18 20:58 1 JUDI Ondansetron HCl (Zofran Odt) 4 mg TIDAC 12/01/18 16:30 12/01/18 17:27 4 MG Pantoprazole Sodium (Protonix) 40 mg DAILYAC 11/25/18 07:30 1/3/19 06:54 40 MG Pregabalin (Lyrica) 25 mg HS 12/01/18 21:00 Sevelamer Carbonate (Renvela) 800 mg TIDWMEALS 11/25/18 08:00 12/01/18 17:22 800 MG Sodium Chloride 1,000 ml @ 1,000 mls/hr Q1H PRN 11/30/18 10:00 11/30/18 16:30 DC Tramadol HCl (Ultram) 25 mg PRN Q6HRS PRN 11/30/18 11:00 12/01/18 12:12 DC 11/30/18 23:44 25 MG Vitamin B Complex/ Vitamin C (Krista-Beatriz) 1 tab DAILY 11/25/18 09:00 12/01/18 09:23 1 TAB Vitamin D (Vitamin D3) 1,000 unit DAILY 11/25/18 09:00 12/01/18 09:23 1,000 UNIT Labs: Lab Laboratory Tests Test 12/01/18 11:53 12/01/18 17:01 12/02/18 05:00 12/02/18 07:14 Glucose (Fingerstick) 97 mg/dL (70-99) 118 mg/dL (70-99) 138 mg/dL (70-99) White Blood Count 5.3 x10^3/uL (4.0-11.0) Red Blood Count 2.27 x10^6/uL (4.30-5.70) Hemoglobin 7.0 g/dL (13.0-17.5) Hematocrit 20.9 % (39.0-53.0) Mean Corpuscular Volume 92 fL (79-100) Mean Corpuscular Hemoglobin 31 pg (25-35) Mean Corpuscular Hemoglobin Concent 33 g/dL (31-37) Red Cell Distribution Width 18.9 % (11.5-14.5) Platelet Count 57 x10^3/uL (140-400) Neutrophils (%) (Auto) 58 % (31-73) Lymphocytes (%) (Auto) 22 % (24-48) Monocytes (%) (Auto) 12 % (0-9) Eosinophils (%) (Auto) 9 % (0-3) Basophils (%) (Auto) 0 % (0-3) Neutrophils # (Auto) 3.0 x10^3uL (1.8-7.7) Lymphocytes # (Auto) 1.1 x10^3/uL (1.0-4.8) Monocytes # (Auto) 0.6 x10^3/uL (0.0-1.1) Eosinophils # (Auto) 0.4 x10^3/uL (0.0-0.7) Basophils # (Auto) 0.0 x10^3/uL (0.0-0.2) Sodium Level 140 mmol/L (136-145) Potassium Level 4.0 mmol/L (3.5-5.1) Chloride Level 101 mmol/L (98-107) Carbon Dioxide Level 29 mmol/L (21-32) Anion Gap 10 (6-14) Blood Urea Nitrogen 31 mg/dL (8-26) Creatinine 7.1 mg/dL (0.7-1.3) Estimated GFR (Cockcroft-Gault) 9.1 Glucose Level 140 mg/dL (70-99) Calcium Level 8.7 mg/dL (8.5-10.1) Phosphorus Level 2.9 mg/dL (2.6-4.7) Magnesium Level 2.0 mg/dL (1.8-2.4) Albumin 3.0 g/dL (3.4-5.0) Objective: Assessment: Recent 1 st toe amp with developing gangrene, s/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 (h/o MSSA, Enterobacter and VRE). ESR 90 Right lateral malleolus wound s/p sharp excisional debridement removing necrotic subcutaneous tissue, 11/02. -11/02. Enterobacter aerogenes, Cipro sensitive, VRE (linezolid & Dapto sensistive; PCN resistent) and Gram variable nuria not ID PAD s/p angio 11/03. ESRD/HD Diarrhea/loose stools. C. diff neg Thrombocytopenia - on Zyvox,off zyvox Nausea Plan: Plan of Care Discharging to [facility] when can be arranged however have issues with cost of Daptomycin Zyvox causes issue with Thrombocytopenia so not an option Continue Dapto and meropenem for now Soc Service to check cost of Tigecycline as possible option though latter can cause nausea Give first dose here before transfer if approved by osh facility,give it slowly as it can cause nausea and gi upset CPK 35 Repeat CBC in am monitor platelets When ready for dc home Every Wednesday CBC, ESR, CPK.LFT Fax results to [id number] f/u appt with us in 1-2 weeks f/u with vascular as directed HBO therapy - wound care team following D/W Daughter at b [facility] D/W LARISA FARRELL MD Dec 02, 2018 08:13
[2018-12-02] MEDS ORDERED: IV NORMAL SALINE 1000ML BAG 1,000 ML IV PRN ×2 (08:27)
[2018-12-02] MEDS ORDERED: ALBUMIN HUMAN 25% 200 ML IV PRN (08:30)
[2018-12-02] MEDS ORDERED: DIALYSIS PATIENT. MC PRN ×2 (08:30)
[2018-12-02] MEDS: COLLAGENASE 250 UNIT/GM TOPICAL OINTMENT 30GM TUBE. TP SCH (08:43)
[2018-12-02] MEDS: NYSTATIN TOPICAL POWDER 15GM BOTTLE. TP SCH ×2 (08:44→21:05)
[2018-12-02] MEDS: PANTOPRAZOLE 40 MG TABLET.DR. PO SCH (08:44)
[2018-12-02] MEDS: FOLIC/VIT B COMP W-C (RENAL) TABLET. PO SCH (08:44)
[2018-12-02] MEDS: CYANOCOBALAMIN (VITAMIN B-12) 1,000 MCG TABLET. PO SCH (08:44)
[2018-12-02] MEDS: INSULIN LISPRO 300 UNITS/3 ML INSULN.PEN. SQ SCH ×3 (08:45→17:32)
[2018-12-02] MEDS: LACTOBACILLUS RHAMNOSUS GG 1 CAPSULE. PO SCH ×2 (08:45→21:00)
[2018-12-02] MEDS: ALLOPURINOL 100 MG TABLET. PO SCH (08:45)
[2018-12-02] MEDS: ONDANSETRON ODT 4 MG TAB.RAPDIS. PO SCH ×3 (08:45→17:30)
[2018-12-02] MEDS: SEVELAMER CARBONATE 800 MG TABLET. PO SCH ×3 (08:45→17:29)
[2018-12-02] MEDS: CHOLECALCIFEROL (VITAMIN D3) 1,000 UNIT TABLET PO SCH (09:00)
--- NOTE | 2018-12-02 09:46 | PDOC2 ---
CONSULT Date of Consult Date of Consult DATE: 12/02/18 TIME: 09:34 Reason for consultation: Thrombocytopenia Consult: Hematology oncology, Dr. Rosette Matthews History of present illness: He is a 77-year-old male with acute onset (normal plt's on 11/21) thrombocytopenia, moderately severe nadired at 53,000, however it remains greater than 50,000, slightly improved, had been lowering while on heparin but had been on Zyvox prior and had been lowering and has improved since the Zyvox has stopped, the linezolid was likely the main contributor, also he does remain off of heparin products which were recently stopped, gets dialysis, not having significant bleeding complications, but the thrombocytopenia is associated with anemia to a hemoglobin of 7 which is likely due to end-stage renal disease as well and all are likely worsened due to his necrotic foot wound and recent osteomyelitis, he has had bilat great toe amputations for PAD. Past medical history: End-stage renal disease on dialysis Anemia of chronic renal insufficiency Nausea GERD History of esophagitis and gastric polyp Colon polyps and diverticula in the past Cholelithiasis History of stroke History of diabetes with peripheral neuropathy History of psoas hematoma on Coumadin in the past A fibrillation Coronary artery disease Hypertension Hyperlipidemia Peripheral arterial disease with stents Past surgical history: Bilateral great toe amputation Peripheral arterial disease stents EGD Colonoscopy Pacemaker Cataract surgery Allergies: No known drug allergies Medications: See attached list Social history: No alcohol or tobacco or drugs Family history: He can't remember Review of systems: Right foot infection, nausea, some shortness of air, otherwise 10 point review of systems was negative Physical exam: Vitals reviewed Gen.: AA man in bed, in no acute distress HEENT: mucous membranes moist, head normocephalic atraumatic Neck: Supple, no lymphadenopathy Lymph nodes: No palpable lymphadenopathy neck or axilla though exam limited Lungs: Breathing comfortably, no evidence of respiratory distress Heart: Regular rate Abdomen: Soft, nontender, distended Extremities: BLE sl pitting edema, R foot bandaged, AVF R arm Skin: R foot wound Neuro: Alert and oriented �3, his helped answer ?s Psych: Normal mood and affect Lab reviewed: White count normal, hemoglobin 7 down from 11.4, platelets 57 up from 53, had been 174 on [place], MCV of 92 ESR of 98 INR 1.5 MRSA negative C. difficile negative Creatinine 7.1 Retic 2% Protein creatinine ratio 1036 Negative hep B and C and flu B12 elevated in July TSH suppressed Rads reviewed: Chest x-ray no acute disease Ultrasound showed patent right upper extremity AV fistula Case discussed with: Patient and his , and Dr. Street, records reviewed in [facility] and [facility], including labs and radiology, please see note for summary details. Assessment and Plan: He is a 77-year-old male with peripheral arterial disease and right foot wound as well as anemia and thrombocytopenia and end-stage renal disease and multiple other comorbidities. Thrombocytopenia: We'll check smear, PTT, fibrinogen, platelets are improving, suspect linezolid was contributing significantly as well as other multifactorial reasons, heparin has been avoided recently, low threshold to check PF 4 antibody if platelets don't continue to improve nicely, would continue to hold heparin products End-stage renal disease: Remains on dialysis, is on Aranesp 100 �g daily, will check a ferritin and iron panel, unsure if he's received IV iron in the recent past? Infection: On antibiotics, vascular surgery is involved, on Plavix and aspirin, okay to continue these with platelet count greater than 50 Suppressed TSH: Defer to primary Anemia: We'll continue the Aranesp, check an iron panel, will also review peripheral smear and he's getting red blood cell transfusion today On nausea: Improved with antiemetics Disposition: May be going to [facility] after discharge Thank you kindly for this consultation, and please don't hesitate to call with further questions. Past Medical History Cardiovascular: AFIB, HTN, Other (PAD) CENTRAL NERVOUS SYSTEM: Periperal neuropathy Renal/: Other (end stage renal disease on hemodialyusis) Endocrine: Diabetes Past Surgical History Past Surgical History: Pacemaker, Cataract Removal, Other (pacemaker and lefgt femoral artery stend and amputation of lecft gret toe) Family History Family History: Coronary Artery Disease Social History No ALCOHOL: none Drugs: None Current Medications Current Medications Current Medications Acetaminophen (Tylenol) 325 mg PRN Q4HRS PRN PO MILD PAIN / TEMP; Start at 20:30 Allopurinol (Zyloprim) 100 mg DAILY PO Last administered on 12/02/18at 08:45; Start 11/25/18 at 09:00 Aspirin (Children'S Aspirin) 81 mg DAILY PO Last administered on 12/01/18 09:23 ; Start 11/25/18 at 09:00 Atorvastatin Calcium (Lipitor) 40 mg HS PO Last administered on 12/01/18 20:58 ; Start 11/24/18 at 21:00 Carvedilol (Coreg) 3.125 mg BIDWMEALS PO Last administered on 11/29/18 18:49; Start 11/24/18 at 21:00; Stop 11/30/18 at 10:19; Status DC Vitamin D (Vitamin D3) 1,000 unit DAILY PO Last administered on 12/01/18 09:23 ; Start 11/25/18 at 09:00 Clopidogrel Bisulfate (Plavix) 75 mg DAILY PO Last administered on 11/30/18 08: 57; Start 11/25/18 at 09:00 Cyanocobalamin (Vitamin B-12) 1,000 mcg DAILY PO Last administered on 12/02/18 08:44; Start 11/25/18 at 09:00 Acetaminophen/ Hydrocodone Bitart (Lortab 5/325) 1 tab PRN Q4HRS PRN PO MODERATE - SEVERE PAIN Last administered on 11/29/18 20:52; Start 11/24/18 at 20:30; Stop 11/30/18 at 11:04; Status DC Pregabalin (Lyrica) 50 mg HS PO Last administered on 11/30/18 20:18; Start at 21:00; Stop 12/01/18 at 12:12; Status DC Sevelamer Carbonate (Renvela) 800 mg TIDWMEALS PO Last administered on 08:45; Start 11/25/18 at 08:00 Vitamin B Complex/ Vitamin C (Krista-Beatriz) 1 tab DAILY PO Last administered on 08:44; Start 11/25/18 at 09:00 Lactobacillus Rhamnosus (Culturelle) 1 cap BID PO Last administered on 08:45; Start 11/24/18 at 21:00 Pantoprazole Sodium (Protonix) 40 mg DAILYAC PO Last administered on 12/02/18 08:44; Start 11/25/18 at 07:30 Insulin Human Lispro (HumaLOG) 0-5 UNITS TIDWMEALS SQ ; Start 11/24/18 at 21:00 ; Stop 11/24/18 at 21:57; Status DC Dextrose (Dextrose 50%-Water Syringe) 12.5 gm PRN Q15MIN PRN IV SEE COMMENTS; Start 11/24/18 at 20:45 Insulin Human Lispro (HumaLOG) 0-5 UNITS TIDWMEALS SQ ; Start 11/25/18 at 08:00 ; Stop 11/25/18 at 08:00; Status DC Insulin Human Lispro (HumaLOG) 0-5 UNITS BG 300-39... TIDWMEALS SQ ; Start at 08:00 Collagenase (Santyl) 1 judi DAILY TP Last administered on 12/02/18at 08:43; Start 11/25/18 at 10:00 Meropenem 500 mg/ Sodium Chloride 50 ml @ 100 mls/hr Q12HR IV ; Start at 21:00; Status UNV Daptomycin 690 mg/ Sodium Chloride 50 ml @ 100 mls/hr [id number]@1600 IV Last administered on 11/30/18at 20:25; Start 11/25/18 at 16:00 Heparin Sodium (Porcine) (Heparin Sodium) 5,000 unit Q12HR SQ Last administered on 11/27/18at 20:28; Start 11/25/18 at 21:00; Stop 11/28/18 at 09 :44; Status DC Meropenem 500 mg/ Sodium Chloride 50 ml @ 100 mls/hr DAILY16 IV Last administered on 12/01/18at 17:22; Start 11/25/18 at 16:00 Linezolid (Zyvox) 600 mg BID PO Last administered on 11/28/18at 08:48; Start 11/25/18 at 11:00; Stop 11/28/18 at 10:04; Status DC Info (PHARMACY MONITORING -- do not chart) 1 each PRN DAILY PRN MC SEE COMMENTS ; Start 11/25/18 at 10:45; Stop 11/28/18 at 17:07; Status DC Sodium Chloride 1,000 ml @ 1,000 mls/hr Q1H PRN IV hypotension; Start at 14:30; Stop 11/25/18 at 20:30; Status DC Sodium Chloride 1,000 ml @ 400 mls/hr Q2H30M PRN IV PATENCY; Start 11/25/18 at 14:30; Stop 11/25/18 at 20:30; Status DC Info (PHARMACY MONITORING -- do not chart) 1 each PRN DAILY PRN MC SEE COMMENTS ; Start 11/25/18 at 14:45; Status UNV Info (PHARMACY MONITORING -- do not chart) 1 each PRN DAILY PRN MC SEE COMMENTS ; Start 11/25/18 at 14:45; Status UNV Ondansetron HCl (Zofran Odt) 4 mg PRN Q6HRS PRN PO NAUSEA/VOMITING Last administered on 12/01/18at 07:30; Start 11/27/18 at 02:15 Magnesium Sulfate 50 ml @ 25 mls/hr PRN DAILY PRN IV for Mag < 1.7 on am labs; Start 11/27/18 at 14:00 Sodium Chloride 1,000 ml @ 1,000 mls/hr Q1H PRN IV hypotension; Start at 09:05; Stop 11/28/18 at 15:04; Status DC Albumin Human 200 ml @ 200 mls/hr 1X PRN PRN IV Hypotension; Start 11/28/18 at 09:15; Stop 11/28/18 at 15:14; Status DC Sodium Chloride 1,000 ml @ 400 mls/hr Q2H30M PRN IV PATENCY; Start 11/28/18 at 09:05; Stop 11/28/18 at 21:04; Status DC Info (PHARMACY MONITORING -- do not chart) 1 each PRN DAILY PRN MC SEE COMMENTS ; Start 11/28/18 at 09:15; Stop 11/28/18 at 17:07; Status DC Info (PHARMACY MONITORING -- do not chart) 1 each PRN DAILY PRN MC SEE COMMENTS ; Start 11/28/18 at 09:15 Sodium Chloride 1,000 ml @ 1,000 mls/hr Q1H PRN IV hypotension; Start 11/29/18 at 16:30; Stop 11/29/18 at 23:00; Status DC Info (PHARMACY MONITORING -- do not chart) 1 each PRN DAILY PRN MC SEE COMMENTS ; Start 11/29/18 at 16:45; Status UNV Info (PHARMACY MONITORING -- do not chart) 1 each PRN DAILY PRN MC SEE COMMENTS ; Start 11/29/18 at 16:45; Status UNV Info (PHARMACY MONITORING -- do not chart) 1 each PRN DAILY PRN MC SEE COMMENTS ; Start 11/30/18 at 08:30 Magnesium Sulfate 50 ml @ 25 mls/hr 1X ONCE IV Last administered on 11/30/18 10:44; Start 11/30/18 at 10:00; Stop 11/30/18 at 11:59; Status DC Darbepoetin Reinaldo (Aranesp) 100 mcg WEEKLYHS SQ Last administered on 11/30/18at 20 :22; Start 11/30/18 at 21:00 Tramadol HCl (Ultram) 25 mg PRN Q6HRS PRN PO MODERATE PAIN Last administered on 11/30/18 23:44; Start 11/30/18 at 11:00; Stop 12/01/18 at 12:12; Status DC Nystatin (Nystop) 1 judi BID TP Last administered on 12/02/18 08:44; Start at 12:00 Sodium Chloride 1,000 ml @ 1,000 mls/hr Q1H PRN IV hypotension; Start 11/30/18 at 10:00; Stop 11/30/18 at 16:30; Status DC Albumin Human 200 ml @ 200 mls/hr 1X PRN PRN IV Hypotension; Start 11/30/18 at 10:00; Stop 11/30/18 at 16:30; Status DC Albumin Human 200 ml @ 100 mls/hr 1X ONCE IV Last administered on 11/30/18at 16 :45; Start 11/30/18 at 16:45; Stop 11/30/18 at 18:44; Status DC Albumin Human 500 ml @ 125 mls/hr Q4H IV Last administered on 12/01/18 17:22; Start 12/01/18 at 12:00; Stop 12/01/18 at 19:59; Status DC Pregabalin (Lyrica) 25 mg HS PO ; Start 12/01/18 at 21:00 Ondansetron HCl (Zofran Odt) 4 mg TIDAC PO Last administered on 12/02/18 08:45 ; Start 12/01/18 at 16:30 Metoclopramide HCl (Reglan) 5 mg TIDACHC PO Last administered on 12/02/18 08:44 ; Start 12/01/18 at 16:30 Acetaminophen/ Hydrocodone Bitart (Lortab 5/325) 0.5 tab PRN Q4HRS PRN PO MODERATE PAIN Last administered on 12/01/18at 22:36; Start 12/01/18 at 12:30 Sodium Chloride 1,000 ml @ 1,000 mls/hr Q1H PRN IV hypotension; Start 12/02/18 at 08:27; Stop 12/02/18 at 14:26 Albumin Human 200 ml @ 200 mls/hr 1X PRN PRN IV Hypotension; Start 12/02/18 at 08:30; Stop 12/02/18 at 14:29 Sodium Chloride 1,000 ml @ 400 mls/hr Q2H30M PRN IV PATENCY; Start 12/02/18 at 08:27; Stop 12/02/18 at 20:26 Info (PHARMACY MONITORING -- do not chart) 1 each PRN DAILY PRN MC SEE COMMENTS ; Start 12/02/18 at 08:30; Status UNV Info (PHARMACY MONITORING -- do not chart) 1 each PRN DAILY PRN MC SEE COMMENTS ; Start 12/02/18 at 08:30; Status UNV Active Scripts Active Zofran (Ondansetron Hcl) 4 Mg Tablet 1 Tab PO Q6HRS Zyvox (Linezolid) 600 Mg Tablet 600 Mg PO BID 30 Days Hydrocodone-Apap 5-325 (Hydrocodone Bit/Acetaminophen) 1 Tab Tablet 1 Tab PO PRN Q4HRS PRN 30 Days Aspirin Ec (Aspirin) 81 Mg Tablet. 81 Mg PO DAILYWBKFT 30 Days [Pantoprazole] 40 MG Tablet. 40 Mg PO DAILYAC 30 Days Humalog (Insulin Lispro) 100 Unit/1 Ml Insuln.pen 0 Units SQ TIDWMEALS 30 Days BG 150-199= 1 units 200-299= 2 units 300-399= 4 units 400-499= 6 units ac tid sliding scale Culturelle (Lactobacillus Rhamnosus Gg) 1 Each Cap.sprink 1 Cap PO BID 30 Days Tylenol (Acetaminophen) 325 Mg Tablet 325 Mg PO PRN Q4HRS PRN 30 Days Carvedilol (Carvedilol) 3.125 Mg Tablet 3.125 Mg PO BIDWMEALS 30 Days Renvela (Sevelamer Carbonate) 800 Mg Tablet 800 Mg PO TIDWMEALS 30 Days Pantoprazole Sodium 40 Mg Tablet.dr 40 Mg PO DAILYAC 30 Days Krista-Beatriz Tablet (Folic Acid/Vitamin B Comp W-C) 0.8 Mg Tablet 1 Tab PO DAILY 30 Days Reported Vitamin B-12 (Cyanocobalamin (Vitamin B-12)) 1,000 Mcg Tablet 1 Tab PO DAILY Allopurinol 100 Mg Tablet 1 Tab PO DAILY Renal Caps Softgel (Folic Acid/Vitamin B Comp W-C) 1 Mg Capsule 1 Cap PO DAILY Acidophilus Lactobacilli (Lactobacillus Acidophilus) 1 Each Capsule 1 Each PO BID Protonix (Pantoprazole Sodium) 20 Mg Tablet.dr 40 Mg PO DAILY Renvela (Sevelamer Carbonate) 800 Mg Tablet 800 Mg PO TIDWMEALS Lyrica (Pregabalin) 50 Mg Capsule 50 Mg PO HS Tylenol (Acetaminophen) 325 Mg Tablet 1 Tab PO PRN Q4HRS Hydrocodone-Apap 5-325 (Hydrocodone Bit/Acetaminophen) 1 Tab Tablet 1 Tab PO PRN Q4HRS PRN Aspirin 81 Mg Tab.chew 81 Mg PO DAILY Carvedilol (Carvedilol) 3.125 Mg Tablet 3.125 Mg PO BIDWMEALS Lipitor (Atorvastatin Calcium) 40 Mg Tablet 40 Mg PO HS Clopidogrel (Clopidogrel Bisulfate) 75 Mg Tablet 75 Mg PO DAILY Vitamin D (Cholecalciferol (Vitamin D3)) 2,000 Unit Capsule 1 Cap PO DAILY [place] 5-325 Tablet (Acetaminophen/Hydrocodone Bitart) 1 Each Tablet 1 Tab PO PRN Q4HRS PRN Lyrica (Pregabalin) 50 Mg Capsule 25 Mg PO HS Clopidogrel (Clopidogrel Bisulfate) 75 Mg Tablet 1 Tab PO DAILY Atorvastatin Calcium 40 Mg Tablet 40 Mg PO HS Allopurinol 100 Mg Tablet 1 Tab PO DAILY Vitamin B-12 (Cyanocobalamin (Vitamin B-12)) 1,000 Mcg Tablet 1 Tab PO DAILY Vitamin D-3 (Cholecalciferol (Vitamin D3)) 2,000 Unit Capsule 1,000 Unit PO DAILY Allergies Allergies: Coded Allergies: I S O L A T I O N *CONTACT* (Verified Allergy, Unknown, 11/25/18) vre No Known Medication Allergies (Verified Allergy, Unknown, 11/25/18) Vitals VITALS Vital Signs Date Time Temp Pulse Resp B/P (MAP) Pulse Ox O2 Delivery O2 Flow Rate FiO2 12/02/18 07:00 99.1 59 20 106/44 (64) 92 Room Air 99.1 12/01/18 20:00 2.0 Labs Labs Laboratory Tests Test 11/30/18 11:15 11/30/18 11:59 11/30/18 18:15 11/30/18 19:59 Glucose (Fingerstick) 128 mg/dL (70-99) 111 mg/dL (70-99) 71 mg/dL (70-99) O2 Saturation 97 % (92-99) Arterial Blood pH 7.41 (7.35-7.45) Arterial Blood pCO2 at Patient Temp 47 mmHg (35-46) Arterial Blood pO2 at Patient Temp 115 mmHg (65-108) Arterial Blood HCO3 29 mmol/L (21-28) Arterial Blood Base Excess 4 mmol/L (-3-3) FiO2 24 Test 12/01/18 05:15 12/01/18 07:57 12/01/18 11:53 12/01/18 17:01 White Blood Count 6.1 x10^3/uL (4.0-11.0) Red Blood Count 2.39 x10^6/uL (4.30-5.70) Hemoglobin 7.3 g/dL (13.0-17.5) Hematocrit 22.1 % (39.0-53.0) Mean Corpuscular Volume 92 fL (79-100) Mean Corpuscular Hemoglobin 31 pg (25-35) Mean Corpuscular Hemoglobin Concent 33 g/dL (31-37) Red Cell Distribution Width 18.7 % (11.5-14.5) Platelet Count 53 x10^3/uL (140-400) Neutrophils (%) (Auto) 60 % (31-73) Lymphocytes (%) (Auto) 21 % (24-48) Monocytes (%) (Auto) 10 % (0-9) Eosinophils (%) (Auto) 8 % (0-3) Basophils (%) (Auto) 0 % (0-3) Neutrophils # (Auto) 3.6 x10^3uL (1.8-7.7) Lymphocytes # (Auto) 1.3 x10^3/uL (1.0-4.8) Monocytes # (Auto) 0.6 x10^3/uL (0.0-1.1) Eosinophils # (Auto) 0.5 x10^3/uL (0.0-0.7) Basophils # (Auto) 0.0 x10^3/uL (0.0-0.2) Sodium Level 140 mmol/L (136-145) Potassium Level 4.4 mmol/L (3.5-5.1) Chloride Level 102 mmol/L (98-107) Carbon Dioxide Level 31 mmol/L (21-32) Anion Gap 7 (6-14) Blood Urea Nitrogen 25 mg/dL (8-26) Creatinine 5.4 mg/dL (0.7-1.3) Estimated GFR (Cockcroft-Gault) 12.5 Glucose Level 121 mg/dL (70-99) Calcium Level 8.5 mg/dL (8.5-10.1) Phosphorus Level 3.3 mg/dL (2.6-4.7) Magnesium Level 2.0 mg/dL (1.8-2.4) Albumin 2.7 g/dL (3.4-5.0) Glucose (Fingerstick) 76 mg/dL (70-99) 97 mg/dL (70-99) 118 mg/dL (70-99) Test 12/02/18 05:00 12/02/18 07:14 White Blood Count 5.3 x10^3/uL (4.0-11.0) Red Blood Count 2.27 x10^6/uL (4.30-5.70) Hemoglobin 7.0 g/dL (13.0-17.5) Hematocrit 20.9 % (39.0-53.0) Mean Corpuscular Volume 92 fL (79-100) Mean Corpuscular Hemoglobin 31 pg (25-35) Mean Corpuscular Hemoglobin Concent 33 g/dL (31-37) Red Cell Distribution Width 18.9 % (11.5-14.5) Platelet Count 57 x10^3/uL (140-400) Neutrophils (%) (Auto) 58 % (31-73) Lymphocytes (%) (Auto) 22 % (24-48) Monocytes (%) (Auto) 12 % (0-9) Eosinophils (%) (Auto) 9 % (0-3) Basophils (%) (Auto) 0 % (0-3) Neutrophils # (Auto) 3.0 x10^3uL (1.8-7.7) Lymphocytes # (Auto) 1.1 x10^3/uL (1.0-4.8) Monocytes # (Auto) 0.6 x10^3/uL (0.0-1.1) Eosinophils # (Auto) 0.4 x10^3/uL (0.0-0.7) Basophils # (Auto) 0.0 x10^3/uL (0.0-0.2) Sodium Level 140 mmol/L (136-145) Potassium Level 4.0 mmol/L (3.5-5.1) Chloride Level 101 mmol/L (98-107) Carbon Dioxide Level 29 mmol/L (21-32) Anion Gap 10 (6-14) Blood Urea Nitrogen 31 mg/dL (8-26) Creatinine 7.1 mg/dL (0.7-1.3) Estimated GFR (Cockcroft-Gault) 9.1 Glucose Level 140 mg/dL (70-99) Calcium Level 8.7 mg/dL (8.5-10.1) Phosphorus Level 2.9 mg/dL (2.6-4.7) Magnesium Level 2.0 mg/dL (1.8-2.4) Iron Level 52 ug/dL (65-175) Total Iron Binding Capacity 110 ug/dL (250-450) Iron Saturation 47 % (15-34) Ferritin 273 ng/mL (26-388) Albumin 3.0 g/dL (3.4-5.0) Glucose (Fingerstick) 138 mg/dL (70-99) Laboratory Tests Test 12/01/18 11:53 12/01/18 17:01 12/02/18 05:00 12/02/18 07:14 Glucose (Fingerstick) 97 mg/dL (70-99) 118 mg/dL (70-99) 138 mg/dL (70-99) White Blood Count 5.3 x10^3/uL (4.0-11.0) Red Blood Count 2.27 x10^6/uL (4.30-5.70) Hemoglobin 7.0 g/dL (13.0-17.5) Hematocrit 20.9 % (39.0-53.0) Mean Corpuscular Volume 92 fL (79-100) Mean Corpuscular Hemoglobin 31 pg (25-35) Mean Corpuscular Hemoglobin Concent 33 g/dL (31-37) Red Cell Distribution Width 18.9 % (11.5-14.5) Platelet Count 57 x10^3/uL (140-400) Neutrophils (%) (Auto) 58 % (31-73) Lymphocytes (%) (Auto) 22 % (24-48) Monocytes (%) (Auto) 12 % (0-9) Eosinophils (%) (Auto) 9 % (0-3) Basophils (%) (Auto) 0 % (0-3) Neutrophils # (Auto) 3.0 x10^3uL (1.8-7.7) Lymphocytes # (Auto) 1.1 x10^3/uL (1.0-4.8) Monocytes # (Auto) 0.6 x10^3/uL (0.0-1.1) Eosinophils # (Auto) 0.4 x10^3/uL (0.0-0.7) Basophils # (Auto) 0.0 x10^3/uL (0.0-0.2) Sodium Level 140 mmol/L (136-145) Potassium Level 4.0 mmol/L (3.5-5.1) Chloride Level 101 mmol/L (98-107) Carbon Dioxide Level 29 mmol/L (21-32) Anion Gap 10 (6-14) Blood Urea Nitrogen 31 mg/dL (8-26) Creatinine 7.1 mg/dL (0.7-1.3) Estimated GFR (Cockcroft-Gault) 9.1 Glucose Level 140 mg/dL (70-99) Calcium Level 8.7 mg/dL (8.5-10.1) Phosphorus Level 2.9 mg/dL (2.6-4.7) Magnesium Level 2.0 mg/dL (1.8-2.4) Iron Level 52 ug/dL (65-175) Total Iron Binding Capacity 110 ug/dL (250-450) Iron Saturation 47 % (15-34) Ferritin 273 ng/mL (26-388) Albumin 3.0 g/dL (3.4-5.0) ROSETTE MATTHEWS MD Dec 02, 2018 09:46
--- NOTE | 2018-12-02 09:50 | PDOC ---
PROGRESS NOTES Subjective Subjective no further nausea or vomiting per nurse. he did not receive HBO rx yesterday. discussed with dr. Matthews and note platelet count is slightly better 57K. hgb low 7.0 and bp is low and will transfuse 2 units prbc during dialysis to help with oxygen carrying capacity of his blood to facilitate wound healing. discussed with daughter and dr. Montaño. Isadora. Objective Objective Vital Signs Date Time Temp Pulse Resp B/P (MAP) Pulse Ox O2 Delivery O2 Flow Rate FiO2 12/02/18 07:00 99.1 59 20 106/44 (64) 92 Room Air 99.1 12/01/18 20:00 2.0 Intake and Output 12/02/18 07:01 Intake Total 2370 ml Output Total 200 ml Balance 2170 ml Intake Oral 1320 ml IV Total 1050 ml Output Urine Total 200 ml # Voids 3 # Bowel Movements 5 Physical Exam Abdomen: Soft (obese) Heart: Normal S1, Normal S2 Extremities: No edema, Other (dry dressing righit foot) General: Alert HEENT: Atraumatic Lungs: Clear to auscultation MUSCULOSKELETAL: Abnormal passive ROM of Neuro: Normal speech Psych/Mental Status: Mood NL Skin: No rashes Assessment Assessment necrotic right foot wound osteomyelitis of right great toe and first metatarsal right ankle wound with granulation tissue severe PAD RLE involving tibial and pedal vessels ESRD on hemodialysis m-w-f diabetes mellitus type 2 with peripheral neuropathy morbid obesity debility hypomagnesemia treated thrombocytopenia suspect due to zyvox nausea and vomiting better anemia of chronic disease Plan Plan of Care transfuse 2 units prbc with dialysis today continue zofran ac tid and relgan ac tid and hs continue wound care continue iv daptomycin and meropenem SNF will not accept patient back on iv daptomycin due to cost and ID to consider less expensive alternative Comment Review of Relevant I have reviewed the following items simeon (where applicable) has been applied. Labs Laboratory Tests Test 11/30/18 11:15 11/30/18 11:59 11/30/18 18:15 11/30/18 19:59 Glucose (Fingerstick) 128 mg/dL (70-99) 111 mg/dL (70-99) 71 mg/dL (70-99) O2 Saturation 97 % (92-99) Arterial Blood pH 7.41 (7.35-7.45) Arterial Blood pCO2 at Patient Temp 47 mmHg (35-46) Arterial Blood pO2 at Patient Temp 115 mmHg (65-108) Arterial Blood HCO3 29 mmol/L (21-28) Arterial Blood Base Excess 4 mmol/L (-3-3) FiO2 24 Test 12/01/18 05:15 12/01/18 07:57 12/01/18 11:53 12/01/18 17:01 White Blood Count 6.1 x10^3/uL (4.0-11.0) Red Blood Count 2.39 x10^6/uL (4.30-5.70) Hemoglobin 7.3 g/dL (13.0-17.5) Hematocrit 22.1 % (39.0-53.0) Mean Corpuscular Volume 92 fL (79-100) Mean Corpuscular Hemoglobin 31 pg (25-35) Mean Corpuscular Hemoglobin Concent 33 g/dL (31-37) Red Cell Distribution Width 18.7 % (11.5-14.5) Platelet Count 53 x10^3/uL (140-400) Neutrophils (%) (Auto) 60 % (31-73) Lymphocytes (%) (Auto) 21 % (24-48) Monocytes (%) (Auto) 10 % (0-9) Eosinophils (%) (Auto) 8 % (0-3) Basophils (%) (Auto) 0 % (0-3) Neutrophils # (Auto) 3.6 x10^3uL (1.8-7.7) Lymphocytes # (Auto) 1.3 x10^3/uL (1.0-4.8) Monocytes # (Auto) 0.6 x10^3/uL (0.0-1.1) Eosinophils # (Auto) 0.5 x10^3/uL (0.0-0.7) Basophils # (Auto) 0.0 x10^3/uL (0.0-0.2) Sodium Level 140 mmol/L (136-145) Potassium Level 4.4 mmol/L (3.5-5.1) Chloride Level 102 mmol/L (98-107) Carbon Dioxide Level 31 mmol/L (21-32) Anion Gap 7 (6-14) Blood Urea Nitrogen 25 mg/dL (8-26) Creatinine 5.4 mg/dL (0.7-1.3) Estimated GFR (Cockcroft-Gault) 12.5 Glucose Level 121 mg/dL (70-99) Calcium Level 8.5 mg/dL (8.5-10.1) Phosphorus Level 3.3 mg/dL (2.6-4.7) Magnesium Level 2.0 mg/dL (1.8-2.4) Albumin 2.7 g/dL (3.4-5.0) Glucose (Fingerstick) 76 mg/dL (70-99) 97 mg/dL (70-99) 118 mg/dL (70-99) Test 12/02/18 05:00 12/02/18 07:14 White Blood Count 5.3 x10^3/uL (4.0-11.0) Red Blood Count 2.27 x10^6/uL (4.30-5.70) Hemoglobin 7.0 g/dL (13.0-17.5) Hematocrit 20.9 % (39.0-53.0) Mean Corpuscular Volume 92 fL (79-100) Mean Corpuscular Hemoglobin 31 pg (25-35) Mean Corpuscular Hemoglobin Concent 33 g/dL (31-37) Red Cell Distribution Width 18.9 % (11.5-14.5) Platelet Count 57 x10^3/uL (140-400) Neutrophils (%) (Auto) 58 % (31-73) Lymphocytes (%) (Auto) 22 % (24-48) Monocytes (%) (Auto) 12 % (0-9) Eosinophils (%) (Auto) 9 % (0-3) Basophils (%) (Auto) 0 % (0-3) Neutrophils # (Auto) 3.0 x10^3uL (1.8-7.7) Lymphocytes # (Auto) 1.1 x10^3/uL (1.0-4.8) Monocytes # (Auto) 0.6 x10^3/uL (0.0-1.1) Eosinophils # (Auto) 0.4 x10^3/uL (0.0-0.7) Basophils # (Auto) 0.0 x10^3/uL (0.0-0.2) Sodium Level 140 mmol/L (136-145) Potassium Level 4.0 mmol/L (3.5-5.1) Chloride Level 101 mmol/L (98-107) Carbon Dioxide Level 29 mmol/L (21-32) Anion Gap 10 (6-14) Blood Urea Nitrogen 31 mg/dL (8-26) Creatinine 7.1 mg/dL (0.7-1.3) Estimated GFR (Cockcroft-Gault) 9.1 Glucose Level 140 mg/dL (70-99) Calcium Level 8.7 mg/dL (8.5-10.1) Phosphorus Level 2.9 mg/dL (2.6-4.7) Magnesium Level 2.0 mg/dL (1.8-2.4) Iron Level 52 ug/dL (65-175) Total Iron Binding Capacity 110 ug/dL (250-450) Iron Saturation 47 % (15-34) Ferritin 273 ng/mL (26-388) Albumin 3.0 g/dL (3.4-5.0) Glucose (Fingerstick) 138 mg/dL (70-99) Laboratory Tests Test 12/01/18 11:53 12/01/18 17:01 12/02/18 05:00 12/02/18 07:14 Glucose (Fingerstick) 97 mg/dL (70-99) 118 mg/dL (70-99) 138 mg/dL (70-99) White Blood Count 5.3 x10^3/uL (4.0-11.0) Red Blood Count 2.27 x10^6/uL (4.30-5.70) Hemoglobin 7.0 g/dL (13.0-17.5) Hematocrit 20.9 % (39.0-53.0) Mean Corpuscular Volume 92 fL (79-100) Mean Corpuscular Hemoglobin 31 pg (25-35) Mean Corpuscular Hemoglobin Concent 33 g/dL (31-37) Red Cell Distribution Width 18.9 % (11.5-14.5) Platelet Count 57 x10^3/uL (140-400) Neutrophils (%) (Auto) 58 % (31-73) Lymphocytes (%) (Auto) 22 % (24-48) Monocytes (%) (Auto) 12 % (0-9) Eosinophils (%) (Auto) 9 % (0-3) Basophils (%) (Auto) 0 % (0-3) Neutrophils # (Auto) 3.0 x10^3uL (1.8-7.7) Lymphocytes # (Auto) 1.1 x10^3/uL (1.0-4.8) Monocytes # (Auto) 0.6 x10^3/uL (0.0-1.1) Eosinophils # (Auto) 0.4 x10^3/uL (0.0-0.7) Basophils # (Auto) 0.0 x10^3/uL (0.0-0.2) Sodium Level 140 mmol/L (136-145) Potassium Level 4.0 mmol/L (3.5-5.1) Chloride Level 101 mmol/L (98-107) Carbon Dioxide Level 29 mmol/L (21-32) Anion Gap 10 (6-14) Blood Urea Nitrogen 31 mg/dL (8-26) Creatinine 7.1 mg/dL (0.7-1.3) Estimated GFR (Cockcroft-Gault) 9.1 Glucose Level 140 mg/dL (70-99) Calcium Level 8.7 mg/dL (8.5-10.1) Phosphorus Level 2.9 mg/dL (2.6-4.7) Magnesium Level 2.0 mg/dL (1.8-2.4) Iron Level 52 ug/dL (65-175) Total Iron Binding Capacity 110 ug/dL (250-450) Iron Saturation 47 % (15-34) Ferritin 273 ng/mL (26-388) Albumin 3.0 g/dL (3.4-5.0) Medications Current Medications Acetaminophen (Tylenol) 325 mg PRN Q4HRS PRN PO MILD PAIN / TEMP; Start at 20:30 Allopurinol (Zyloprim) 100 mg DAILY PO Last administered on 12/02/18 08:45; Start 11/25/18 at 09:00 Aspirin (Children'S Aspirin) 81 mg DAILY PO Last administered on 12/01/18 09:23 ; Start 11/25/18 at 09:00 Atorvastatin Calcium (Lipitor) 40 mg HS PO Last administered on 12/01/18 20:58 ; Start 11/24/18 at 21:00 Carvedilol (Coreg) 3.125 mg BIDWMEALS PO Last administered on 11/29/18 18:49; Start 11/24/18 at 21:00; Stop 11/30/18 at 10:19; Status DC Vitamin D (Vitamin D3) 1,000 unit DAILY PO Last administered on 12/01/18 09:23 ; Start 11/25/18 at 09:00 Clopidogrel Bisulfate (Plavix) 75 mg DAILY PO Last administered on 11/30/18 08: 57; Start 11/25/18 at 09:00 Cyanocobalamin (Vitamin B-12) 1,000 mcg DAILY PO Last administered on 12/02/18 08:44; Start 11/25/18 at 09:00 Acetaminophen/ Hydrocodone Bitart (Lortab 5/325) 1 tab PRN Q4HRS PRN PO MODERATE - SEVERE PAIN Last administered on 11/29/18 20:52; Start 11/24/18 at 20:30; Stop 11/30/18 at 11:04; Status DC Pregabalin (Lyrica) 50 mg HS PO Last administered on 11/30/18 20:18; Start at 21:00; Stop 12/01/18 at 12:12; Status DC Sevelamer Carbonate (Renvela) 800 mg TIDWMEALS PO Last administered on 08:45; Start 11/25/18 at 08:00 Vitamin B Complex/ Vitamin C (Krista-Beatriz) 1 tab DAILY PO Last administered on 08:44; Start 11/25/18 at 09:00 Lactobacillus Rhamnosus (Culturelle) 1 cap BID PO Last administered on 08:45; Start 11/24/18 at 21:00 Pantoprazole Sodium (Protonix) 40 mg DAILYAC PO Last administered on 12/02/18 08:44; Start 11/25/18 at 07:30 Insulin Human Lispro (HumaLOG) 0-5 UNITS TIDWMEALS SQ ; Start 11/24/18 at 21:00 ; Stop 11/24/18 at 21:57; Status DC Dextrose (Dextrose 50%-Water Syringe) 12.5 gm PRN Q15MIN PRN IV SEE COMMENTS; Start 11/24/18 at 20:45 Insulin Human Lispro (HumaLOG) 0-5 UNITS TIDWMEALS SQ ; Start 11/25/18 at 08:00 ; Stop 11/25/18 at 08:00; Status DC Insulin Human Lispro (HumaLOG) 0-5 UNITS BG 300-39... TIDWMEALS SQ ; Start at 08:00 Collagenase (Santyl) 1 judi DAILY TP Last administered on 12/02/18at 08:43; Start 11/25/18 at 10:00 Meropenem 500 mg/ Sodium Chloride 50 ml @ 100 mls/hr Q12HR IV ; Start at 21:00; Status UNV Daptomycin 690 mg/ Sodium Chloride 50 ml @ 100 mls/hr [id number]@1600 IV Last administered on 11/30/18at 20:25; Start 11/25/18 at 16:00 Heparin Sodium (Porcine) (Heparin Sodium) 5,000 unit Q12HR SQ Last administered on 11/27/18at 20:28; Start 11/25/18 at 21:00; Stop 11/28/18 at 09 :44; Status DC Meropenem 500 mg/ Sodium Chloride 50 ml @ 100 mls/hr DAILY16 IV Last administered on 12/01/18at 17:22; Start 11/25/18 at 16:00 Linezolid (Zyvox) 600 mg BID PO Last administered on 11/28/18at 08:48; Start 11/25/18 at 11:00; Stop 11/28/18 at 10:04; Status DC Info (PHARMACY MONITORING -- do not chart) 1 each PRN DAILY PRN MC SEE COMMENTS ; Start 11/25/18 at 10:45; Stop 11/28/18 at 17:07; Status DC Sodium Chloride 1,000 ml @ 1,000 mls/hr Q1H PRN IV hypotension; Start at 14:30; Stop 11/25/18 at 20:30; Status DC Sodium Chloride 1,000 ml @ 400 mls/hr Q2H30M PRN IV PATENCY; Start 11/25/18 at 14:30; Stop 11/25/18 at 20:30; Status DC Info (PHARMACY MONITORING -- do not chart) 1 each PRN DAILY PRN MC SEE COMMENTS ; Start 11/25/18 at 14:45; Status UNV Info (PHARMACY MONITORING -- do not chart) 1 each PRN DAILY PRN MC SEE COMMENTS ; Start 11/25/18 at 14:45; Status UNV Ondansetron HCl (Zofran Odt) 4 mg PRN Q6HRS PRN PO NAUSEA/VOMITING Last administered on 12/01/18at 07:30; Start 11/27/18 at 02:15 Magnesium Sulfate 50 ml @ 25 mls/hr PRN DAILY PRN IV for Mag < 1.7 on am labs; Start 11/27/18 at 14:00 Sodium Chloride 1,000 ml @ 1,000 mls/hr Q1H PRN IV hypotension; Start at 09:05; Stop 11/28/18 at 15:04; Status DC Albumin Human 200 ml @ 200 mls/hr 1X PRN PRN IV Hypotension; Start 11/28/18 at 09:15; Stop 11/28/18 at 15:14; Status DC Sodium Chloride 1,000 ml @ 400 mls/hr Q2H30M PRN IV PATENCY; Start 11/28/18 at 09:05; Stop 11/28/18 at 21:04; Status DC Info (PHARMACY MONITORING -- do not chart) 1 each PRN DAILY PRN MC SEE COMMENTS ; Start 11/28/18 at 09:15; Stop 11/28/18 at 17:07; Status DC Info (PHARMACY MONITORING -- do not chart) 1 each PRN DAILY PRN MC SEE COMMENTS ; Start 11/28/18 at 09:15 Sodium Chloride 1,000 ml @ 1,000 mls/hr Q1H PRN IV hypotension; Start 11/29/18 at 16:30; Stop 11/29/18 at 23:00; Status DC Info (PHARMACY MONITORING -- do not chart) 1 each PRN DAILY PRN MC SEE COMMENTS ; Start 11/29/18 at 16:45; Status UNV Info (PHARMACY MONITORING -- do not chart) 1 each PRN DAILY PRN MC SEE COMMENTS ; Start 11/29/18 at 16:45; Status UNV Info (PHARMACY MONITORING -- do not chart) 1 each PRN DAILY PRN MC SEE COMMENTS ; Start 11/30/18 at 08:30 Magnesium Sulfate 50 ml @ 25 mls/hr 1X ONCE IV Last administered on 11/30/18at 10:44; Start 11/30/18 at 10:00; Stop 11/30/18 at 11:59; Status DC Darbepoetin Reinaldo (Aranesp) 100 mcg WEEKLYHS SQ Last administered on 11/30/18 20 :22; Start 11/30/18 at 21:00 Tramadol HCl (Ultram) 25 mg PRN Q6HRS PRN PO MODERATE PAIN Last administered on 11/30/18 23:44; Start 11/30/18 at 11:00; Stop 12/01/18 at 12:12; Status DC Nystatin (Nystop) 1 judi BID TP Last administered on 12/02/18 08:44; Start at 12:00 Sodium Chloride 1,000 ml @ 1,000 mls/hr Q1H PRN IV hypotension; Start 11/30/18 at 10:00; Stop 11/30/18 at 16:30; Status DC Albumin Human 200 ml @ 200 mls/hr 1X PRN PRN IV Hypotension; Start 11/30/18 at 10:00; Stop 11/30/18 at 16:30; Status DC Albumin Human 200 ml @ 100 mls/hr 1X ONCE IV Last administered on 11/30/18at 16 :45; Start 11/30/18 at 16:45; Stop 11/30/18 at 18:44; Status DC Albumin Human 500 ml @ 125 mls/hr Q4H IV Last administered on 12/01/18 17:22; Start 12/01/18 at 12:00; Stop 12/01/18 at 19:59; Status DC Pregabalin (Lyrica) 25 mg HS PO ; Start 12/01/18 at 21:00 Ondansetron HCl (Zofran Odt) 4 mg TIDAC PO Last administered on 12/02/18 08:45 ; Start 12/01/18 at 16:30 Metoclopramide HCl (Reglan) 5 mg TIDACHC PO Last administered on 12/02/18 08:44 ; Start 12/01/18 at 16:30 Acetaminophen/ Hydrocodone Bitart (Lortab 5/325) 0.5 tab PRN Q4HRS PRN PO MODERATE PAIN Last administered on 12/01/18 22:36; Start 12/01/18 at 12:30 Sodium Chloride 1,000 ml @ 1,000 mls/hr Q1H PRN IV hypotension; Start 12/02/18 at 08:27; Stop 12/02/18 at 14:26 Albumin Human 200 ml @ 200 mls/hr 1X PRN PRN IV Hypotension; Start 12/02/18 at 08:30; Stop 12/02/18 at 14:29 Sodium Chloride 1,000 ml @ 400 mls/hr Q2H30M PRN IV PATENCY; Start 12/02/18 at 08:27; Stop 12/02/18 at 20:26 Info (PHARMACY MONITORING -- do not chart) 1 each PRN DAILY PRN MC SEE COMMENTS ; Start 12/02/18 at 08:30; Status UNV Info (PHARMACY MONITORING -- do not chart) 1 each PRN DAILY PRN MC SEE COMMENTS ; Start 12/02/18 at 08:30; Status UNV Active Scripts Active Zofran (Ondansetron Hcl) 4 Mg Tablet 1 Tab PO Q6HRS Zyvox (Linezolid) 600 Mg Tablet 600 Mg PO BID 30 Days Hydrocodone-Apap 5-325 (Hydrocodone Bit/Acetaminophen) 1 Tab Tablet 1 Tab PO PRN Q4HRS PRN 30 Days Aspirin Ec (Aspirin) 81 Mg Tablet. 81 Mg PO DAILYWBKFT 30 Days [Pantoprazole] 40 MG Tablet. 40 Mg PO DAILYAC 30 Days Humalog (Insulin Lispro) 100 Unit/1 Ml Insuln.pen 0 Units SQ TIDWMEALS 30 Days BG 150-199= 1 units 200-299= 2 units 300-399= 4 units 400-499= 6 units ac tid sliding scale Culturelle (Lactobacillus Rhamnosus Gg) 1 Each Cap.sprink 1 Cap PO BID 30 Days Tylenol (Acetaminophen) 325 Mg Tablet 325 Mg PO PRN Q4HRS PRN 30 Days Carvedilol (Carvedilol) 3.125 Mg Tablet 3.125 Mg PO BIDWMEALS 30 Days Renvela (Sevelamer Carbonate) 800 Mg Tablet 800 Mg PO TIDWMEALS 30 Days Pantoprazole Sodium 40 Mg Tablet. 40 Mg PO DAILYAC 30 Days Krista-Beatriz Tablet (Folic Acid/Vitamin B Comp W-C) 0.8 Mg Tablet 1 Tab PO DAILY 30 Days Reported Vitamin B-12 (Cyanocobalamin (Vitamin B-12)) 1,000 Mcg Tablet 1 Tab PO DAILY Allopurinol 100 Mg Tablet 1 Tab PO DAILY Renal Caps Softgel (Folic Acid/Vitamin B Comp W-C) 1 Mg Capsule 1 Cap PO DAILY Acidophilus Lactobacilli (Lactobacillus Acidophilus) 1 Each Capsule 1 Each PO BID Protonix (Pantoprazole Sodium) 20 Mg Tablet.dr 40 Mg PO DAILY Renvela (Sevelamer Carbonate) 800 Mg Tablet 800 Mg PO TIDWMEALS Lyrica (Pregabalin) 50 Mg Capsule 50 Mg PO HS Tylenol (Acetaminophen) 325 Mg Tablet 1 Tab PO PRN Q4HRS Hydrocodone-Apap 5-325 (Hydrocodone Bit/Acetaminophen) 1 Tab Tablet 1 Tab PO PRN Q4HRS PRN Aspirin 81 Mg Tab.chew 81 Mg PO DAILY Carvedilol (Carvedilol) 3.125 Mg Tablet 3.125 Mg PO BIDWMEALS Lipitor (Atorvastatin Calcium) 40 Mg Tablet 40 Mg PO HS Clopidogrel (Clopidogrel Bisulfate) 75 Mg Tablet 75 Mg PO DAILY Vitamin D (Cholecalciferol (Vitamin D3)) 2,000 Unit Capsule 1 Cap PO DAILY [place] 5-325 Tablet (Acetaminophen/Hydrocodone Bitart) 1 Each Tablet 1 Tab PO PRN Q4HRS PRN Lyrica (Pregabalin) 50 Mg Capsule 25 Mg PO HS Clopidogrel (Clopidogrel Bisulfate) 75 Mg Tablet 1 Tab PO DAILY Atorvastatin Calcium 40 Mg Tablet 40 Mg PO HS Allopurinol 100 Mg Tablet 1 Tab PO DAILY Vitamin B-12 (Cyanocobalamin (Vitamin B-12)) 1,000 Mcg Tablet 1 Tab PO DAILY Vitamin D-3 (Cholecalciferol (Vitamin D3)) 2,000 Unit Capsule 1,000 Unit PO DAILY Vitals/I & O Vital Sign - Last 24 Hours 12/01/18 12/01/18 12/01/18 12/01/18 11:14 14:39 15:10 19:43 Temp 98.8 98.6 98.5 98.8 98.6 98.5 Pulse 66 60 61 Resp 18 16 16 B/P (MAP) 91/55 (67) 98/62 (74) 134/79 (97) Pulse Ox 100 93 97 O2 Delivery Nasal Cannula Nasal Cannula Room Air Room Air O2 Flow Rate 2.0 2.0 12/01/18 12/01/18 12/01/18 12/01/18 20:00 22:36 23:33 23:36 Temp 97.7 97.7 Pulse 63 Resp 20 B/P (MAP) 138/68 (91) Pulse Ox 97 97 O2 Delivery Nasal Cannula Nasal Cannula Room Air Room Air O2 Flow Rate 2.0 12/02/18 12/02/18 04:50 07:00 Temp 98.9 99.1 98.9 99.1 Pulse 72 59 Resp 24 20 B/P (MAP) 108/46 (66) 106/44 (64) Pulse Ox 94 92 O2 Delivery Room Air Room Air Intake and Output 12/01/18 12/01/18 12/02/18 15:01 23:01 07:01 Intake Total 600 ml 1420 ml 350 ml Output Total 200 ml Balance 600 ml 1420 ml 150 ml KIMI TIDWELL MD Dec 02, 2018 09:50
[2018-12-02 10:30] LABS: FIBRINOGEN 389 mg/dL (200-440); PARTIAL THROMBOPLASTIN TIME 38 SEC (24-38)
--- NOTE | 2018-12-02 11:33 | PDOC ---
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 Vitals Vital Signs Vital Signs Date Time Temp Pulse Resp B/P (MAP) Pulse Ox O2 Delivery O2 Flow Rate FiO2 12/02/18 11:15 99.4 62 19 121/63 99.4 12/02/18 07:40 Nasal Cannula 2.0 12/02/18 07:00 92 Labs Last Labs Laboratory Tests Test 11/30/18 11:59 11/30/18 18:15 11/30/18 19:59 12/01/18 05:15 Glucose (Fingerstick) 111 mg/dL (70-99) 71 mg/dL (70-99) O2 Saturation 97 % (92-99) Arterial Blood pH 7.41 (7.35-7.45) Arterial Blood pCO2 at Patient Temp 47 mmHg (35-46) Arterial Blood pO2 at Patient Temp 115 mmHg (65-108) Arterial Blood HCO3 29 mmol/L (21-28) Arterial Blood Base Excess 4 mmol/L (-3-3) FiO2 24 White Blood Count 6.1 x10^3/uL (4.0-11.0) Red Blood Count 2.39 x10^6/uL (4.30-5.70) Hemoglobin 7.3 g/dL (13.0-17.5) Hematocrit 22.1 % (39.0-53.0) Mean Corpuscular Volume 92 fL (79-100) Mean Corpuscular Hemoglobin 31 pg (25-35) Mean Corpuscular Hemoglobin Concent 33 g/dL (31-37) Red Cell Distribution Width 18.7 % (11.5-14.5) Platelet Count 53 x10^3/uL (140-400) Neutrophils (%) (Auto) 60 % (31-73) Lymphocytes (%) (Auto) 21 % (24-48) Monocytes (%) (Auto) 10 % (0-9) Eosinophils (%) (Auto) 8 % (0-3) Basophils (%) (Auto) 0 % (0-3) Neutrophils # (Auto) 3.6 x10^3uL (1.8-7.7) Lymphocytes # (Auto) 1.3 x10^3/uL (1.0-4.8) Monocytes # (Auto) 0.6 x10^3/uL (0.0-1.1) Eosinophils # (Auto) 0.5 x10^3/uL (0.0-0.7) Basophils # (Auto) 0.0 x10^3/uL (0.0-0.2) Sodium Level 140 mmol/L (136-145) Potassium Level 4.4 mmol/L (3.5-5.1) Chloride Level 102 mmol/L (98-107) Carbon Dioxide Level 31 mmol/L (21-32) Anion Gap 7 (6-14) Blood Urea Nitrogen 25 mg/dL (8-26) Creatinine 5.4 mg/dL (0.7-1.3) Estimated GFR (Cockcroft-Gault) 12.5 Glucose Level 121 mg/dL (70-99) Calcium Level 8.5 mg/dL (8.5-10.1) Phosphorus Level 3.3 mg/dL (2.6-4.7) Magnesium Level 2.0 mg/dL (1.8-2.4) Albumin 2.7 g/dL (3.4-5.0) Test 12/01/18 07:57 12/01/18 11:53 12/01/18 17:01 12/02/18 05:00 Glucose (Fingerstick) 76 mg/dL (70-99) 97 mg/dL (70-99) 118 mg/dL (70-99) White Blood Count 5.3 x10^3/uL (4.0-11.0) Red Blood Count 2.27 x10^6/uL (4.30-5.70) Hemoglobin 7.0 g/dL (13.0-17.5) Hematocrit 20.9 % (39.0-53.0) Mean Corpuscular Volume 92 fL (79-100) Mean Corpuscular Hemoglobin 31 pg (25-35) Mean Corpuscular Hemoglobin Concent 33 g/dL (31-37) Red Cell Distribution Width 18.9 % (11.5-14.5) Platelet Count 57 x10^3/uL (140-400) Neutrophils (%) (Auto) 58 % (31-73) Lymphocytes (%) (Auto) 22 % (24-48) Monocytes (%) (Auto) 12 % (0-9) Eosinophils (%) (Auto) 9 % (0-3) Basophils (%) (Auto) 0 % (0-3) Neutrophils # (Auto) 3.0 x10^3uL (1.8-7.7) Lymphocytes # (Auto) 1.1 x10^3/uL (1.0-4.8) Monocytes # (Auto) 0.6 x10^3/uL (0.0-1.1) Eosinophils # (Auto) 0.4 x10^3/uL (0.0-0.7) Basophils # (Auto) 0.0 x10^3/uL (0.0-0.2) Sodium Level 140 mmol/L (136-145) Potassium Level 4.0 mmol/L (3.5-5.1) Chloride Level 101 mmol/L (98-107) Carbon Dioxide Level 29 mmol/L (21-32) Anion Gap 10 (6-14) Blood Urea Nitrogen 31 mg/dL (8-26) Creatinine 7.1 mg/dL (0.7-1.3) Estimated GFR (Cockcroft-Gault) 9.1 Glucose Level 140 mg/dL (70-99) Calcium Level 8.7 mg/dL (8.5-10.1) Phosphorus Level 2.9 mg/dL (2.6-4.7) Magnesium Level 2.0 mg/dL (1.8-2.4) Iron Level 52 ug/dL (65-175) Total Iron Binding Capacity 110 ug/dL (250-450) Iron Saturation 47 % (15-34) Ferritin 273 ng/mL (26-388) Albumin 3.0 g/dL (3.4-5.0) Test 12/02/18 07:14 12/02/18 10:05 Glucose (Fingerstick) 138 mg/dL (70-99) Activated Partial Thromboplast Time 38 SEC (24-38) Fibrinogen 389 mg/dL (200-440) Laboratory Tests Test 12/01/18 11:53 12/01/18 17:01 12/02/18 05:00 12/02/18 07:14 Glucose (Fingerstick) 97 mg/dL (70-99) 118 mg/dL (70-99) 138 mg/dL (70-99) White Blood Count 5.3 x10^3/uL (4.0-11.0) Red Blood Count 2.27 x10^6/uL (4.30-5.70) Hemoglobin 7.0 g/dL (13.0-17.5) Hematocrit 20.9 % (39.0-53.0) Mean Corpuscular Volume 92 fL (79-100) Mean Corpuscular Hemoglobin 31 pg (25-35) Mean Corpuscular Hemoglobin Concent 33 g/dL (31-37) Red Cell Distribution Width 18.9 % (11.5-14.5) Platelet Count 57 x10^3/uL (140-400) Neutrophils (%) (Auto) 58 % (31-73) Lymphocytes (%) (Auto) 22 % (24-48) Monocytes (%) (Auto) 12 % (0-9) Eosinophils (%) (Auto) 9 % (0-3) Basophils (%) (Auto) 0 % (0-3) Neutrophils # (Auto) 3.0 x10^3uL (1.8-7.7) Lymphocytes # (Auto) 1.1 x10^3/uL (1.0-4.8) Monocytes # (Auto) 0.6 x10^3/uL (0.0-1.1) Eosinophils # (Auto) 0.4 x10^3/uL (0.0-0.7) Basophils # (Auto) 0.0 x10^3/uL (0.0-0.2) Sodium Level 140 mmol/L (136-145) Potassium Level 4.0 mmol/L (3.5-5.1) Chloride Level 101 mmol/L (98-107) Carbon Dioxide Level 29 mmol/L (21-32) Anion Gap 10 (6-14) Blood Urea Nitrogen 31 mg/dL (8-26) Creatinine 7.1 mg/dL (0.7-1.3) Estimated GFR (Cockcroft-Gault) 9.1 Glucose Level 140 mg/dL (70-99) Calcium Level 8.7 mg/dL (8.5-10.1) Phosphorus Level 2.9 mg/dL (2.6-4.7) Magnesium Level 2.0 mg/dL (1.8-2.4) Iron Level 52 ug/dL (65-175) Total Iron Binding Capacity 110 ug/dL (250-450) Iron Saturation 47 % (15-34) Ferritin 273 ng/mL (26-388) Albumin 3.0 g/dL (3.4-5.0) Test 12/02/18 10:05 Activated Partial Thromboplast Time 38 SEC (24-38) Fibrinogen 389 mg/dL (200-440) JANAE MONTAGUE MD Dec 02, 2018 11:33
--- NOTE | 2018-12-02 14:36 | PDOC ---
Subjective: Subjective: Denies vomiting, feeling better - just tired. Objective: Objective: D/w RN this morning and saw pt in dialysis this morning. RN says gagged on a pill this morning but no vomiting, tolerated breakfast. Vital Signs: Vital Signs Date Time Temp Pulse Resp B/P (MAP) Pulse Ox O2 Delivery O2 Flow Rate FiO2 12/02/18 12:30 98.9 69 18 120/59 98.9 12/02/18 07:40 Nasal Cannula 2.0 12/02/18 07:00 92 Labs: Laboratory Tests Test 12/01/18 17:01 12/02/18 05:00 12/02/18 07:14 12/02/18 10:05 Glucose (Fingerstick) 118 mg/dL 138 mg/dL White Blood Count 5.3 x10^3/uL Red Blood Count 2.27 x10^6/uL Hemoglobin 7.0 g/dL Hematocrit 20.9 % Mean Corpuscular Volume 92 fL Mean Corpuscular Hemoglobin 31 pg Mean Corpuscular Hemoglobin Concent 33 g/dL Red Cell Distribution Width 18.9 % Platelet Count 57 x10^3/uL Neutrophils (%) (Auto) 58 % Lymphocytes (%) (Auto) 22 % Monocytes (%) (Auto) 12 % Eosinophils (%) (Auto) 9 % Basophils (%) (Auto) 0 % Neutrophils # (Auto) 3.0 x10^3uL Lymphocytes # (Auto) 1.1 x10^3/uL Monocytes # (Auto) 0.6 x10^3/uL Eosinophils # (Auto) 0.4 x10^3/uL Basophils # (Auto) 0.0 x10^3/uL Sodium Level 140 mmol/L Potassium Level 4.0 mmol/L Chloride Level 101 mmol/L Carbon Dioxide Level 29 mmol/L Anion Gap 10 Blood Urea Nitrogen 31 mg/dL Creatinine 7.1 mg/dL Estimated GFR (Cockcroft-Gault) 9.1 Glucose Level 140 mg/dL Calcium Level 8.7 mg/dL Phosphorus Level 2.9 mg/dL Magnesium Level 2.0 mg/dL Iron Level 52 ug/dL Total Iron Binding Capacity 110 ug/dL Iron Saturation 47 % Ferritin 273 ng/mL Albumin 3.0 g/dL Activated Partial Thromboplast Time 38 SEC Fibrinogen 389 mg/dL PE: GEN: dialyzing LUNGS: CTAB HEART: RRR ABD: non-tender NEURO/PSYCH: A & O �3 but drowsy A/P: Right toe wound, PAD, ESRD N/v -h/o GERD on PPI Anemia - transfused today -- Continue PPI, also looks like got Reglan twice yesterday. KARLA WATT Dec 02, 2018 14:36
[2018-12-02] MEDS: CLOPIDOGREL BISULFATE 75 MG TABLET PO SCH (14:38)
[2018-12-02] MEDS: ASPIRIN CHEWABLE 81 MG TABLET. PO SCH (14:38)
[2018-12-02] MEDS: HYDROcodone/APAP 5/325MG 1 TAB TABLET PO PRN ×3 (14:49→22:44)
--- NOTE | 2018-12-02 15:11 | NUR ---
SS following up with discharge planning. SS met with pt. Pt stated that he wants to do hypobaric treatments after speaking with physicians and does not want to transfer dialysis clinics due to the time and proximity to his home. Pt currently has M-W- dialysis chair time at 1030 at [facility]. SS also discuss pt's need for IV antibiotics as well. Pt requested to return to [facility] at discharge as he cannot manage wound care and IV abt at home. Pt reported that he would be agreeable to waking up early in the morning for treatments on Wednesday, Wednesday, and Fridays. SS met with piano case and bench assembler, Jaycee Garza, and discussed possible plans. SS suggested meeting with administration and discussing the possibility of having [facility] get pt up, dressed, and fed by 0630am and having pt brought to the hospital by 645am and receive hypobaric treatment from [id number] and then having transport take pt to dialysis at 0945 for his 1030 chair time and then have pt returned to [facility] at 1530 once dialysis is completed. enterprise applications manager, Jaycee Garza, reported that she would discuss with administration.
--- NOTE | 2018-12-02 15:29 | PDOC ---
Provider Note Provider Note AF VSS awake and alert right lateral ankle wound clean with good granulation tissue, right 1st toe open amputation has pink granulation tissue in the distal wound however there is necrotic tissue throughout the mid wound and adjacent to the 2nd metatarsal region, medial 2nd toe ulcer Hgb 7 A/P 77 year old male with a right 1st toe open ray amputation with necrotic tissue within the wound - plan right 1st toe amputation debridement and likely 2nd toe amputation on wednesday - will restart wound VAC following surgery on wednesday - continue antibiotics per ID - Hgb 7, will transfuse 1 unit of blood in preparation for surgery SITA ENRIQUEZ MD Dec 02, 2018 15:29
[2018-12-02] MEDS: NORMAL SALINE IV SCH (17:29)
[2018-12-02] MEDS: DAPTOMYCIN IV SCH (17:29)
[2018-12-02] MEDS: MEROPENEM 500 MG in IV NORMAL SALINE 50ML 50 ML IV SCH (17:29)
[2018-12-02] MEDS: ATORVASTATIN CALCIUM 40 MG TABLET. PO SCH (21:00)
[2018-12-02] MEDS: PREGABALIN 25 MG CAPSULE PO SCH (21:00)
[2018-12-02] MEDS: ACETAMINOPHEN 325 MG TABLET. PO PRN (21:01)
[2018-12-03] MEDS: ACETAMINOPHEN 325 MG TABLET. PO PRN (00:58)
[2018-12-03 03:30] VITALS: BP 125/56
[2018-12-03] MEDS: HYDROcodone/APAP 5/325MG 1 TAB TABLET PO PRN (03:53)
[2018-12-03 05:54] LABS: ALBUMIN 2.7 g/dL (3.4-5.0); CALCIUM 8.8 mg/dL (8.5-10.1); CREATININE 6.2 mg/dL (0.7-1.3); GFR 10.7; PHOSPHORUS 1.9 mg/dL (2.6-4.7); POTASSIUM 3.8 mmol/L (3.5-5.1)
[2018-12-03 07:20] VITALS: BP 120/59
--- NOTE | 2018-12-03 07:33 | PDOC ---
CARDIO Progress Notes Date and Time Date of Service 12/02/2018 Time of Evaluation 1500 Subjective Subjective: No Chest Pain, No shortness of breath, No Palpitations Vitals Vitals Vital Signs Date Time Temp Pulse Resp B/P (MAP) Pulse Ox O2 Delivery O2 Flow Rate FiO2 12/03/18 04:53 20 Room Air 3.0 12/03/18 03:30 98.9 68 125/56 (79) 96 98.9 Weight Weight [ ] Input and Output Intake and Output Intake and Output 12/03/18 07:01 Intake Total 100 ml Balance 100 ml Intake Oral 100 ml # Voids 1 # Bowel Movements 5 Laboratory Labs Laboratory Tests Test 12/02/18 10:05 12/02/18 14:56 12/02/18 16:54 12/02/18 21:11 Activated Partial Thromboplast Time 38 SEC (24-38) Fibrinogen 389 mg/dL (200-440) Glucose (Fingerstick) 113 mg/dL (70-99) 129 mg/dL (70-99) 139 mg/dL (70-99) Test 12/03/18 04:00 Sodium Level 140 mmol/L (136-145) Potassium Level 3.8 mmol/L (3.5-5.1) Chloride Level 100 mmol/L (98-107) Carbon Dioxide Level 30 mmol/L (21-32) Anion Gap 10 (6-14) Blood Urea Nitrogen 24 mg/dL (8-26) Creatinine 6.2 mg/dL (0.7-1.3) Estimated GFR (Cockcroft-Gault) 10.7 Glucose Level 126 mg/dL (70-99) Calcium Level 8.8 mg/dL (8.5-10.1) Phosphorus Level 1.9 mg/dL (2.6-4.7) Albumin 2.7 g/dL (3.4-5.0) Physical Exam HEENT: Neck Supple W Full Motion Chest: Symmetric LUNGS: Clear to Auscultation Heart: S1S2, irregularly irregular (AFIB rate controlled with lowest HR 60) Abdomen: Soft N/T Extremities: Other (amputated right first toe) Neurology: alert, oriented, follow commands Assessment Assessment Late entry 1. PAD; s/p previous right SFA stent and recent left SFA and tibial angioplasty. S/P right first toe amputation with pending further debridement. Vascular surgery managing 2. SSS; s/p PPM ([employer]). Normal device function single lead. 3. CAD s/p PCI/stent. clinically stable. Clinically stable. 4. Chronic AFIB; previously on warfarin but was discontinued due to psoas hematoma, Rate controlled 5. Chronic diastolic CHF; compensated. LVEF 50%, compensated 6 Hypertension; controlled 7. DM2/HLP 8. ESRD 9. Anemia of chronic disease: Hgb 7 per PCP 10.. MOUNIKA; CPAP at home 11. H/o CVA with left side hemiparesis Recommendations 1. Continue secondary prevention measures 2. Discussed with [employer] rep as I was not able to find the interrogation report done Wednesday. Normal device function with baseline set rate at 60 hence not possible to have bradycardic episode with normal functioning device. Will restart on coreg for rate control unless BP is marginally low. May switch to low dose metoprolol if need be. Further review of tele monitor did not reveal any forms of bradycardia and lowest noted HR was 60 3. ASA for stroke prevention as pt has been taken off coumadin due to psoas hematoma. Continue plavix 4. Fluid off loading per HD 5. Follow up with [facility] in 2-3 weeks. ROBBIE TORRES APRN Dec 03, 2018 07:33
[2018-12-03] MEDS: INSULIN LISPRO 300 UNITS/3 ML INSULN.PEN. SQ SCH ×3 (07:59→17:00)
[2018-12-03] MEDS: SEVELAMER CARBONATE 800 MG TABLET. PO SCH ×3 (08:52→16:40)
[2018-12-03] MEDS: ASPIRIN CHEWABLE 81 MG TABLET. PO SCH (08:52)
[2018-12-03] MEDS: ONDANSETRON ODT 4 MG TAB.RAPDIS. PO SCH ×3 (08:52→16:40)
[2018-12-03] MEDS: CLOPIDOGREL BISULFATE 75 MG TABLET PO SCH (08:52)
[2018-12-03] MEDS: LACTOBACILLUS RHAMNOSUS GG 1 CAPSULE. PO SCH ×2 (08:52→20:23)
[2018-12-03] MEDS: FOLIC/VIT B COMP W-C (RENAL) TABLET. PO SCH (08:52)
[2018-12-03] MEDS: ALLOPURINOL 100 MG TABLET. PO SCH (08:52)
[2018-12-03] MEDS: CYANOCOBALAMIN (VITAMIN B-12) 1,000 MCG TABLET. PO SCH (08:52)
[2018-12-03] MEDS: CHOLECALCIFEROL (VITAMIN D3) 1,000 UNIT TABLET PO SCH (08:53)
[2018-12-03] MEDS: PANTOPRAZOLE 40 MG TABLET.DR. PO SCH (08:53)
[2018-12-03] MEDS: CARVEDILOL 3.125 MG TABLET. PO SCH ×2 (08:53→16:47)
[2018-12-03] MEDS: METOCLOPRAMIDE 5 MG TABLET. PO SCH ×4 (08:53→20:22)
[2018-12-03] MEDS: COLLAGENASE 250 UNIT/GM TOPICAL OINTMENT 30GM TUBE. TP SCH (08:54)
[2018-12-03] MEDS: NYSTATIN TOPICAL POWDER 15GM BOTTLE. TP SCH ×2 (08:56→20:23)
[2018-12-03 11:30] VITALS: BP 121/62
--- NOTE | 2018-12-03 11:51 | PDOC ---
PROGRESS NOTES Subjective Subjective feels better. eating a big breakfast. appetite good. no nausea or vomiting. Objective Objective Vital Signs Date Time Temp Pulse Resp B/P (MAP) Pulse Ox O2 Delivery O2 Flow Rate FiO2 12/03/18 08:53 65 120/59 12/03/18 07:58 Room Air 12/03/18 07:20 98.5 16 97 98.5 12/03/18 04:53 3.0 Intake and Output 12/03/18 07:01 Intake Total 100 ml Balance 100 ml Intake Oral 100 ml # Voids 1 # Bowel Movements 5 Physical Exam Abdomen: Soft Heart: Normal S1, Normal S2 Extremities: No edema General: Alert HEENT: Atraumatic Lungs: Clear to auscultation Neuro: Normal speech Psych/Mental Status: Mental status NL Skin: No rashes Assessment Assessment necrotic right foot wound osteomyelitis of right great toe and first metatarsal right ankle wound with granulation tissue severe PAD RLE involving tibial and pedal vessels ESRD on hemodialysis m-w-f diabetes mellitus type 2 with peripheral neuropathy morbid obesity debility hypomagnesemia treated thrombocytopenia suspect due to zyvox nausea and vomiting better anemia of chronic disease Plan Plan of Care continue iv daptomycin and meropenem hemodialysis wednesday continue metoclopramide and zofran right great toe amputation debridement and 2 nd toe amputation wednesday wound vac to be ordered after surgery on wednesday lab tomorrow. monitor hgb and platelet count Comment Review of Relevant I have reviewed the following items simeon (where applicable) has been applied. Labs Laboratory Tests Test 12/01/18 11:53 12/01/18 17:01 12/02/18 05:00 12/02/18 07:14 Glucose (Fingerstick) 97 mg/dL (70-99) 118 mg/dL (70-99) 138 mg/dL (70-99) White Blood Count 5.3 x10^3/uL (4.0-11.0) Red Blood Count 2.27 x10^6/uL (4.30-5.70) Hemoglobin 7.0 g/dL (13.0-17.5) Hematocrit 20.9 % (39.0-53.0) Mean Corpuscular Volume 92 fL (79-100) Mean Corpuscular Hemoglobin 31 pg (25-35) Mean Corpuscular Hemoglobin Concent 33 g/dL (31-37) Red Cell Distribution Width 18.9 % (11.5-14.5) Platelet Count 57 x10^3/uL (140-400) Neutrophils (%) (Auto) 58 % (31-73) Lymphocytes (%) (Auto) 22 % (24-48) Monocytes (%) (Auto) 12 % (0-9) Eosinophils (%) (Auto) 9 % (0-3) Basophils (%) (Auto) 0 % (0-3) Neutrophils # (Auto) 3.0 x10^3uL (1.8-7.7) Lymphocytes # (Auto) 1.1 x10^3/uL (1.0-4.8) Monocytes # (Auto) 0.6 x10^3/uL (0.0-1.1) Eosinophils # (Auto) 0.4 x10^3/uL (0.0-0.7) Basophils # (Auto) 0.0 x10^3/uL (0.0-0.2) Sodium Level 140 mmol/L (136-145) Potassium Level 4.0 mmol/L (3.5-5.1) Chloride Level 101 mmol/L (98-107) Carbon Dioxide Level 29 mmol/L (21-32) Anion Gap 10 (6-14) Blood Urea Nitrogen 31 mg/dL (8-26) Creatinine 7.1 mg/dL (0.7-1.3) Estimated GFR (Cockcroft-Gault) 9.1 Glucose Level 140 mg/dL (70-99) Calcium Level 8.7 mg/dL (8.5-10.1) Phosphorus Level 2.9 mg/dL (2.6-4.7) Magnesium Level 2.0 mg/dL (1.8-2.4) Iron Level 52 ug/dL (65-175) Total Iron Binding Capacity 110 ug/dL (250-450) Iron Saturation 47 % (15-34) Ferritin 273 ng/mL (26-388) Albumin 3.0 g/dL (3.4-5.0) Test 12/02/18 10:05 12/02/18 14:56 12/02/18 16:54 12/02/18 21:11 Activated Partial Thromboplast Time 38 SEC (24-38) Fibrinogen 389 mg/dL (200-440) Glucose (Fingerstick) 113 mg/dL (70-99) 129 mg/dL (70-99) 139 mg/dL (70-99) Test 12/03/18 04:00 12/03/18 07:52 Sodium Level 140 mmol/L (136-145) Potassium Level 3.8 mmol/L (3.5-5.1) Chloride Level 100 mmol/L (98-107) Carbon Dioxide Level 30 mmol/L (21-32) Anion Gap 10 (6-14) Blood Urea Nitrogen 24 mg/dL (8-26) Creatinine 6.2 mg/dL (0.7-1.3) Estimated GFR (Cockcroft-Gault) 10.7 Glucose Level 126 mg/dL (70-99) Calcium Level 8.8 mg/dL (8.5-10.1) Phosphorus Level 1.9 mg/dL (2.6-4.7) Albumin 2.7 g/dL (3.4-5.0) Glucose (Fingerstick) 120 mg/dL (70-99) Laboratory Tests Test 12/02/18 14:56 12/02/18 16:54 12/02/18 21:11 12/03/18 04:00 Glucose (Fingerstick) 113 mg/dL (70-99) 129 mg/dL (70-99) 139 mg/dL (70-99) Sodium Level 140 mmol/L (136-145) Potassium Level 3.8 mmol/L (3.5-5.1) Chloride Level 100 mmol/L (98-107) Carbon Dioxide Level 30 mmol/L (21-32) Anion Gap 10 (6-14) Blood Urea Nitrogen 24 mg/dL (8-26) Creatinine 6.2 mg/dL (0.7-1.3) Estimated GFR (Cockcroft-Gault) 10.7 Glucose Level 126 mg/dL (70-99) Calcium Level 8.8 mg/dL (8.5-10.1) Phosphorus Level 1.9 mg/dL (2.6-4.7) Albumin 2.7 g/dL (3.4-5.0) Test 12/03/18 07:52 Glucose (Fingerstick) 120 mg/dL (70-99) Medications Current Medications Acetaminophen (Tylenol) 325 mg PRN Q4HRS PRN PO MILD PAIN / TEMP Last administered on 12/03/18 00:58; Start 11/24/18 at 20:30 Allopurinol (Zyloprim) 100 mg DAILY PO Last administered on 12/03/18 08:52; Start 11/25/18 at 09:00 Aspirin (Children'S Aspirin) 81 mg DAILY PO Last administered on 12/03/18 08:52 ; Start 11/25/18 at 09:00 Atorvastatin Calcium (Lipitor) 40 mg HS PO Last administered on 12/02/18 21:00 ; Start 11/24/18 at 21:00 Carvedilol (Coreg) 3.125 mg BIDWMEALS PO Last administered on 11/29/18 18:49; Start 11/24/18 at 21:00; Stop 11/30/18 at 10:19; Status DC Vitamin D (Vitamin D3) 1,000 unit DAILY PO Last administered on 12/03/18 08:53 ; Start 11/25/18 at 09:00 Clopidogrel Bisulfate (Plavix) 75 mg DAILY PO Last administered on 12/03/18 08: 52; Start 11/25/18 at 09:00 Cyanocobalamin (Vitamin B-12) 1,000 mcg DAILY PO Last administered on 12/03/18 08:52; Start 11/25/18 at 09:00 Acetaminophen/ Hydrocodone Bitart (Lortab 5/325) 1 tab PRN Q4HRS PRN PO MODERATE - SEVERE PAIN Last administered on 11/29/18 20:52; Start 11/24/18 at 20:30; Stop 11/30/18 at 11:04; Status DC Pregabalin (Lyrica) 50 mg HS PO Last administered on 11/30/18 20:18; Start at 21:00; Stop 12/01/18 at 12:12; Status DC Sevelamer Carbonate (Renvela) 800 mg TIDWMEALS PO Last administered on 11:39; Start 11/25/18 at 08:00 Vitamin B Complex/ Vitamin C (Krista-Beatriz) 1 tab DAILY PO Last administered on 08:52; Start 11/25/18 at 09:00 Lactobacillus Rhamnosus (Culturelle) 1 cap BID PO Last administered on 08:52; Start 11/24/18 at 21:00 Pantoprazole Sodium (Protonix) 40 mg DAILYAC PO Last administered on 12/03/18 08:53; Start 11/25/18 at 07:30 Insulin Human Lispro (HumaLOG) 0-5 UNITS TIDWMEALS SQ ; Start 11/24/18 at 21:00 ; Stop 11/24/18 at 21:57; Status DC Dextrose (Dextrose 50%-Water Syringe) 12.5 gm PRN Q15MIN PRN IV SEE COMMENTS; Start 11/24/18 at 20:45 Insulin Human Lispro (HumaLOG) 0-5 UNITS TIDWMEALS SQ ; Start 11/25/18 at 08:00 ; Stop 11/25/18 at 08:00; Status DC Insulin Human Lispro (HumaLOG) 0-5 UNITS BG 300-39... TIDWMEALS SQ ; Start at 08:00 Collagenase (Santyl) 1 judi DAILY TP Last administered on 12/03/18 08:54; Start 11/25/18 at 10:00 Meropenem 500 mg/ Sodium Chloride 50 ml @ 100 mls/hr Q12HR IV ; Start at 21:00; Status UNV Daptomycin 690 mg/ Sodium Chloride 50 ml @ 100 mls/hr MoWeFr@1600 IV Last administered on 12/02/18 17:29; Start 11/25/18 at 16:00 Heparin Sodium (Porcine) (Heparin Sodium) 5,000 unit Q12HR SQ Last administered on 11/27/18at 20:28; Start 11/25/18 at 21:00; Stop 11/28/18 at 09 :44; Status DC Meropenem 500 mg/ Sodium Chloride 50 ml @ 100 mls/hr DAILY16 IV Last administered on 12/02/18 17:29; Start 11/25/18 at 16:00 Linezolid (Zyvox) 600 mg BID PO Last administered on 11/28/18at 08:48; Start 11/25/18 at 11:00; Stop 11/28/18 at 10:04; Status DC Info (PHARMACY MONITORING -- do not chart) 1 each PRN DAILY PRN MC SEE COMMENTS ; Start 11/25/18 at 10:45; Stop 11/28/18 at 17:07; Status DC Sodium Chloride 1,000 ml @ 1,000 mls/hr Q1H PRN IV hypotension; Start at 14:30; Stop 11/25/18 at 20:30; Status DC Sodium Chloride 1,000 ml @ 400 mls/hr Q2H30M PRN IV PATENCY; Start 11/25/18 at 14:30; Stop 11/25/18 at 20:30; Status DC Info (PHARMACY MONITORING -- do not chart) 1 each PRN DAILY PRN MC SEE COMMENTS ; Start 11/25/18 at 14:45; Status UNV Info (PHARMACY MONITORING -- do not chart) 1 each PRN DAILY PRN MC SEE COMMENTS ; Start 11/25/18 at 14:45; Status UNV Ondansetron HCl (Zofran Odt) 4 mg PRN Q6HRS PRN PO NAUSEA/VOMITING Last administered on 12/01/18at 07:30; Start 11/27/18 at 02:15 Magnesium Sulfate 50 ml @ 25 mls/hr PRN DAILY PRN IV for Mag < 1.7 on am labs; Start 11/27/18 at 14:00 Sodium Chloride 1,000 ml @ 1,000 mls/hr Q1H PRN IV hypotension; Start at 09:05; Stop 11/28/18 at 15:04; Status DC Albumin Human 200 ml @ 200 mls/hr 1X PRN PRN IV Hypotension; Start 11/28/18 at 09:15; Stop 11/28/18 at 15:14; Status DC Sodium Chloride 1,000 ml @ 400 mls/hr Q2H30M PRN IV PATENCY; Start 11/28/18 at 09:05; Stop 11/28/18 at 21:04; Status DC Info (PHARMACY MONITORING -- do not chart) 1 each PRN DAILY PRN MC SEE COMMENTS ; Start 11/28/18 at 09:15; Stop 11/28/18 at 17:07; Status DC Info (PHARMACY MONITORING -- do not chart) 1 each PRN DAILY PRN MC SEE COMMENTS ; Start 11/28/18 at 09:15; Stop 12/02/18 at 15:15; Status DC Sodium Chloride 1,000 ml @ 1,000 mls/hr Q1H PRN IV hypotension; Start 11/29/18 at 16:30; Stop 11/29/18 at 23:00; Status DC Info (PHARMACY MONITORING -- do not chart) 1 each PRN DAILY PRN MC SEE COMMENTS ; Start 11/29/18 at 16:45; Status UNV Info (PHARMACY MONITORING -- do not chart) 1 each PRN DAILY PRN MC SEE COMMENTS ; Start 11/29/18 at 16:45; Status UNV Info (PHARMACY MONITORING -- do not chart) 1 each PRN DAILY PRN MC SEE COMMENTS ; Start 11/30/18 at 08:30 Magnesium Sulfate 50 ml @ 25 mls/hr 1X ONCE IV Last administered on 11/30/18at 10:44; Start 11/30/18 at 10:00; Stop 11/30/18 at 11:59; Status DC Darbepoetin Reinaldo (Aranesp) 100 mcg WEEKLYHS SQ Last administered on 11/30/18at 20 :22; Start 11/30/18 at 21:00 Tramadol HCl (Ultram) 25 mg PRN Q6HRS PRN PO MODERATE PAIN Last administered on 11/30/18at 23:44; Start 11/30/18 at 11:00; Stop 12/01/18 at 12:12; Status DC Nystatin (Nystop) 1 judi BID TP Last administered on 12/03/18at 08:56; Start at 12:00 Sodium Chloride 1,000 ml @ 1,000 mls/hr Q1H PRN IV hypotension; Start 11/30/18 at 10:00; Stop 11/30/18 at 16:30; Status DC Albumin Human 200 ml @ 200 mls/hr 1X PRN PRN IV Hypotension; Start 11/30/18 at 10:00; Stop 11/30/18 at 16:30; Status DC Albumin Human 200 ml @ 100 mls/hr 1X ONCE IV Last administered on 11/30/18at 16 :45; Start 11/30/18 at 16:45; Stop 11/30/18 at 18:44; Status DC Albumin Human 500 ml @ 125 mls/hr Q4H IV Last administered on 12/01/18at 17:22; Start 12/01/18 at 12:00; Stop 12/01/18 at 19:59; Status DC Pregabalin (Lyrica) 25 mg HS PO Last administered on 12/02/18at 21:00; Start 12/01 at 21:00 Ondansetron HCl (Zofran Odt) 4 mg TIDAC PO Last administered on 12/03/18at 11:39 ; Start 12/01/18 at 16:30 Metoclopramide HCl (Reglan) 5 mg TIDACHC PO Last administered on 12/03/18at 11:39 ; Start 12/01/18 at 16:30 Acetaminophen/ Hydrocodone Bitart (Lortab 5/325) 0.5 tab PRN Q4HRS PRN PO MODERATE PAIN Last administered on 12/03/18at 03:53; Start 12/01/18 at 12:30 Sodium Chloride 1,000 ml @ 1,000 mls/hr Q1H PRN IV hypotension; Start 12/02/18 at 08:27; Stop 12/02/18 at 14:26; Status DC Albumin Human 200 ml @ 200 mls/hr 1X PRN PRN IV Hypotension; Start 12/02/18 at 08:30; Stop 12/02/18 at 14:29; Status DC Sodium Chloride 1,000 ml @ 400 mls/hr Q2H30M PRN IV PATENCY; Start 12/02/18 at 08:27; Stop 12/02/18 at 20:26; Status DC Info (PHARMACY MONITORING -- do not chart) 1 each PRN DAILY PRN MC SEE COMMENTS ; Start 12/02/18 at 08:30; Status UNV Info (PHARMACY MONITORING -- do not chart) 1 each PRN DAILY PRN MC SEE COMMENTS ; Start 12/02/18 at 08:30; Status UNV Ondansetron HCl (Zofran) 4 mg PRN Q6HRS PRN IV NAUSEA/VOMITING; Start 12/05/18 at 07:00; Stop 12/06/18 at 06:59 Morphine Sulfate (Morphine Sulfate) 1 mg PRN Q10MIN PRN IV SEVERE PAIN; Start 12/05/18 at 07:00; Stop 12/05/18 at 18:00 Ringer's Solution 1,000 ml @ 30 mls/hr Q24H IV ; Start 12/05/18 at 07:00; Stop 12/05/18 at 18:59 Lidocaine HCl (Xylocaine-Mpf 1% 2ml Vial) 2 ml PRN 1X PRN ID PRIOR TO IV START ; Start 12/05/18 at 07:00; Stop 12/05/18 at 07:01 Hydromorphone HCl (Dilaudid) 0.5 mg PRN Q10MIN PRN IV SEV PAIN, Second choice; Start 12/05/18 at 07:00; Stop 12/06/18 at 06:59 Carvedilol (Coreg) 3.125 mg BIDWMEALS PO Last administered on 12/03/18at 08:53; Start 12/03/18 at 08:00 Active Scripts Active Zofran (Ondansetron Hcl) 4 Mg Tablet 1 Tab PO Q6HRS Zyvox (Linezolid) 600 Mg Tablet 600 Mg PO BID 30 Days Hydrocodone-Apap 5-325 (Hydrocodone Bit/Acetaminophen) 1 Tab Tablet 1 Tab PO PRN Q4HRS PRN 30 Days Aspirin Ec (Aspirin) 81 Mg Tablet. 81 Mg PO DAILYWBKFT 30 Days [Pantoprazole] 40 MG Tablet.dr 40 Mg PO DAILYAC 30 Days Humalog (Insulin Lispro) 100 Unit/1 Ml Insuln.pen 0 Units SQ TIDWMEALS 30 Days BG 150-199= 1 units 200-299= 2 units 300-399= 4 units 400-499= 6 units ac tid sliding scale Culturelle (Lactobacillus Rhamnosus Gg) 1 Each Cap.sprink 1 Cap PO BID 30 Days Tylenol (Acetaminophen) 325 Mg Tablet 325 Mg PO PRN Q4HRS PRN 30 Days Carvedilol (Carvedilol) 3.125 Mg Tablet 3.125 Mg PO BIDWMEALS 30 Days Renvela (Sevelamer Carbonate) 800 Mg Tablet 800 Mg PO TIDWMEALS 30 Days Pantoprazole Sodium 40 Mg Tablet.dr 40 Mg PO DAILYAC 30 Days Krista-Beatriz Tablet (Folic Acid/Vitamin B Comp W-C) 0.8 Mg Tablet 1 Tab PO DAILY 30 Days Reported Vitamin B-12 (Cyanocobalamin (Vitamin B-12)) 1,000 Mcg Tablet 1 Tab PO DAILY Allopurinol 100 Mg Tablet 1 Tab PO DAILY Renal Caps Softgel (Folic Acid/Vitamin B Comp W-C) 1 Mg Capsule 1 Cap PO DAILY Acidophilus Lactobacilli (Lactobacillus Acidophilus) 1 Each Capsule 1 Each PO BID Protonix (Pantoprazole Sodium) 20 Mg Tablet.dr 40 Mg PO DAILY Renvela (Sevelamer Carbonate) 800 Mg Tablet 800 Mg PO TIDWMEALS Lyrica (Pregabalin) 50 Mg Capsule 50 Mg PO HS Tylenol (Acetaminophen) 325 Mg Tablet 1 Tab PO PRN Q4HRS Hydrocodone-Apap 5-325 (Hydrocodone Bit/Acetaminophen) 1 Tab Tablet 1 Tab PO PRN Q4HRS PRN Aspirin 81 Mg Tab.chew 81 Mg PO DAILY Carvedilol (Carvedilol) 3.125 Mg Tablet 3.125 Mg PO BIDWMEALS Lipitor (Atorvastatin Calcium) 40 Mg Tablet 40 Mg PO HS Clopidogrel (Clopidogrel Bisulfate) 75 Mg Tablet 75 Mg PO DAILY Vitamin D (Cholecalciferol (Vitamin D3)) 2,000 Unit Capsule 1 Cap PO DAILY [place] 5-325 Tablet (Acetaminophen/Hydrocodone Bitart) 1 Each Tablet 1 Tab PO PRN Q4HRS PRN Lyrica (Pregabalin) 50 Mg Capsule 25 Mg PO HS Clopidogrel (Clopidogrel Bisulfate) 75 Mg Tablet 1 Tab PO DAILY Atorvastatin Calcium 40 Mg Tablet 40 Mg PO HS Allopurinol 100 Mg Tablet 1 Tab PO DAILY Vitamin B-12 (Cyanocobalamin (Vitamin B-12)) 1,000 Mcg Tablet 1 Tab PO DAILY Vitamin D-3 (Cholecalciferol (Vitamin D3)) 2,000 Unit Capsule 1,000 Unit PO DAILY Vitals/I & O Vital Sign - Last 24 Hours 12/02/18 12/02/18 12/02/18 12/02/18 12:30 14:49 15:00 19:04 Temp 98.9 99.2 98.9 99.2 Pulse 69 67 Resp 18 16 18 14 B/P (MAP) 120/59 129/57 (81) Pulse Ox 92 93 93 O2 Delivery Nasal Cannula Room Air Room Air O2 Flow Rate 2.0 2.0 12/02/18 12/02/18 12/02/18 12/02/18 19:15 19:25 22:44 23:46 Temp 98.8 99.2 98.8 99.2 Pulse 72 69 Resp 17 20 20 B/P (MAP) 127/66 (86) 136/67 (90) Pulse Ox 92 93 O2 Delivery Room Air Room Air Room Air Room Air 1/5/19 12/03/18 12/03/18 12/03/18 03:30 03:53 04:53 07:20 Temp 98.9 98.5 98.9 98.5 Pulse 68 60 Resp 16 20 20 16 B/P (MAP) 125/56 (79) 120/59 (79) Pulse Ox 96 97 O2 Delivery Room Air Room Air Room Air Room Air O2 Flow Rate 3.0 12/03/18 12/03/18 07:58 08:53 Pulse 65 B/P (MAP) 120/59 O2 Delivery Room Air Intake and Output 12/02/18 12/02/18 12/03/18 15:01 23:01 07:01 Intake Total 100 ml Balance 100 ml KIMI TIDWELL MD Dec 03, 2018 11:51
[2018-12-03 15:15] VITALS: BP 129/69
[2018-12-03 15:56] LABS: PLATELET COUNT 57 x10^3/uL (140-400)
[2018-12-03] MEDS: MEROPENEM 500 MG in IV NORMAL SALINE 50ML 50 ML IV SCH (17:11)
[2018-12-03 19:10] VITALS: BP 148/66
[2018-12-03] MEDS: PREGABALIN 25 MG CAPSULE PO SCH (20:23)
[2018-12-03] MEDS: ATORVASTATIN CALCIUM 40 MG TABLET. PO SCH (20:23)
[2018-12-03 23:05] VITALS: BP 142/62
[2018-12-04 03:55] VITALS: BP 128/54
[2018-12-04 06:37] LABS: ALBUMIN 2.4 g/dL (3.4-5.0); CALCIUM 8.8 mg/dL (8.5-10.1); PHOSPHORUS 1.7 mg/dL (2.6-4.7); POTASSIUM 3.8 mmol/L (3.5-5.1)
[2018-12-04 06:42] LABS: BASO % 0 % (0-3); EOS # 0.3 x10^3/uL (0.0-0.7); EOS % 5 % (0-3); HEMATOCRIT 24.3 % (39.0-53.0); HEMOGLOBIN 8.2 g/dL (13.0-17.5); LYMPH % 16 % (24-48); MEAN CORPUSCULAR HEMOGLOBIN 31 pg (25-35); MEAN CORPUSCULAR HGB CONC 34 g/dL (31-37); MEAN CORPUSCULAR VOLUME 91 fL (79-100); MONO # 0.7 x10^3/uL (0.0-1.1); MONO % 10 % (0-9); NEUT # 4.6 x10^3uL (1.8-7.7); NEUT % 69 % (31-73); PLATELET COUNT 103 x10^3/uL (140-400); RED BLOOD COUNT 2.67 x10^6/uL (4.30-5.70); RED CELL DISTRIBUTION WIDTH 17.6 % (11.5-14.5); WHITE BLOOD COUNT 6.6 x10^3/uL (4.0-11.0)
[2018-12-04 07:00] VITALS: BP 124/59
[2018-12-04] MEDS: INSULIN LISPRO 300 UNITS/3 ML INSULN.PEN. SQ SCH ×3 (08:00→16:47)
[2018-12-04] MEDS: FOLIC/VIT B COMP W-C (RENAL) TABLET. PO SCH (08:49)
[2018-12-04] MEDS: CLOPIDOGREL BISULFATE 75 MG TABLET PO SCH (08:49)
[2018-12-04] MEDS: NYSTATIN TOPICAL POWDER 15GM BOTTLE. TP SCH ×2 (08:49→20:15)
[2018-12-04] MEDS: ONDANSETRON ODT 4 MG TAB.RAPDIS. PO SCH ×3 (08:49→17:01)
[2018-12-04] MEDS: ALLOPURINOL 100 MG TABLET. PO SCH (08:49)
[2018-12-04] MEDS: COLLAGENASE 250 UNIT/GM TOPICAL OINTMENT 30GM TUBE. TP SCH (08:49)
[2018-12-04] MEDS: ASPIRIN CHEWABLE 81 MG TABLET. PO SCH (08:49)
[2018-12-04] MEDS: METOCLOPRAMIDE 5 MG TABLET. PO SCH ×4 (08:49→20:15)
[2018-12-04] MEDS: PANTOPRAZOLE 40 MG TABLET.DR. PO SCH (08:49)
[2018-12-04] MEDS: SEVELAMER CARBONATE 800 MG TABLET. PO SCH ×3 (08:49→17:01)
[2018-12-04] MEDS: CYANOCOBALAMIN (VITAMIN B-12) 1,000 MCG TABLET. PO SCH (08:49)
[2018-12-04] MEDS: LACTOBACILLUS RHAMNOSUS GG 1 CAPSULE. PO SCH ×2 (08:50→20:15)
[2018-12-04] MEDS: CHOLECALCIFEROL (VITAMIN D3) 1,000 UNIT TABLET PO SCH (08:50)
[2018-12-04] MEDS: CARVEDILOL 3.125 MG TABLET. PO SCH ×2 (08:51→17:02)
[2018-12-04] MEDS: HYDROcodone/APAP 5/325MG 1 TAB TABLET PO PRN ×2 (10:19→23:14)
--- NOTE | 2018-12-04 10:53 | PDOC ---
PROGRESS NOTES Subjective Subjective denies nausea and vomiting. lab reviewed. platelet count up to 103K . hgb better 8.2. discussed his surgery tomorrow with patient and his daughter. Objective Objective Vital Signs Date Time Temp Pulse Resp B/P (MAP) Pulse Ox O2 Delivery O2 Flow Rate FiO2 12/04/18 10:19 18 92 Room Air 3.0 12/04/18 08:51 124/59 12/04/18 07:00 99.7 60 99.7 Intake and Output 12/04/18 07:01 Intake Total 1240 ml Output Total 0 ml Balance 1240 ml Intake Oral 1240 ml Output Urine Total 0 ml # Voids 2 # Bowel Movements 1 Physical Exam Abdomen: Soft, Other (obese) Heart: Regular rate, Normal S1, Normal S2 Extremities: Other (left great toe amputaion. wounds right ankle and right foot with dry dressing) General: Alert HEENT: Atraumatic Lungs: Clear to auscultation Neuro: Normal speech Psych/Mental Status: Mental status NL Skin: No rashes Assessment Assessment necrotic right foot wound osteomyelitis of right great toe and first metatarsal right ankle wound with granulation tissue severe PAD RLE involving tibial and pedal vessels ESRD on hemodialysis m-w-f diabetes mellitus type 2 with peripheral neuropathy morbid obesity debility hypomagnesemia treated thrombocytopenia suspect due to zyvox . improved nausea and vomiting better anemia of chronic disease Plan Plan of Care right great toe amputation site debridement and 2nd toe amputation tomorrow continue iv daptomycin and meropenem. ID aware that SNF will not accept iv daptomycin due to expense hemodialysis tomorrow lab tomorrow wound care Comment Review of Relevant I have reviewed the following items simeon (where applicable) has been applied. Labs Laboratory Tests Test 12/02/18 14:56 12/02/18 16:54 12/02/18 21:11 12/03/18 04:00 Glucose (Fingerstick) 113 mg/dL (70-99) 129 mg/dL (70-99) 139 mg/dL (70-99) Sodium Level 140 mmol/L (136-145) Potassium Level 3.8 mmol/L (3.5-5.1) Chloride Level 100 mmol/L (98-107) Carbon Dioxide Level 30 mmol/L (21-32) Anion Gap 10 (6-14) Blood Urea Nitrogen 24 mg/dL (8-26) Creatinine 6.2 mg/dL (0.7-1.3) Estimated GFR (Cockcroft-Gault) 10.7 Glucose Level 126 mg/dL (70-99) Calcium Level 8.8 mg/dL (8.5-10.1) Phosphorus Level 1.9 mg/dL (2.6-4.7) Albumin 2.7 g/dL (3.4-5.0) Test 12/03/18 07:52 12/03/18 11:51 12/03/18 20:47 12/04/18 06:10 Glucose (Fingerstick) 120 mg/dL (70-99) 167 mg/dL (70-99) 134 mg/dL (70-99) White Blood Count 6.6 x10^3/uL (4.0-11.0) Red Blood Count 2.67 x10^6/uL (4.30-5.70) Hemoglobin 8.2 g/dL (13.0-17.5) Hematocrit 24.3 % (39.0-53.0) Mean Corpuscular Volume 91 fL (79-100) Mean Corpuscular Hemoglobin 31 pg (25-35) Mean Corpuscular Hemoglobin Concent 34 g/dL (31-37) Red Cell Distribution Width 17.6 % (11.5-14.5) Platelet Count 103 x10^3/uL (140-400) Neutrophils (%) (Auto) 69 % (31-73) Lymphocytes (%) (Auto) 16 % (24-48) Monocytes (%) (Auto) 10 % (0-9) Eosinophils (%) (Auto) 5 % (0-3) Basophils (%) (Auto) 0 % (0-3) Neutrophils # (Auto) 4.6 x10^3uL (1.8-7.7) Lymphocytes # (Auto) 1.0 x10^3/uL (1.0-4.8) Monocytes # (Auto) 0.7 x10^3/uL (0.0-1.1) Eosinophils # (Auto) 0.3 x10^3/uL (0.0-0.7) Basophils # (Auto) 0.0 x10^3/uL (0.0-0.2) Sodium Level 137 mmol/L (136-145) Potassium Level 3.8 mmol/L (3.5-5.1) Chloride Level 100 mmol/L (98-107) Carbon Dioxide Level 31 mmol/L (21-32) Anion Gap 6 (6-14) Blood Urea Nitrogen 33 mg/dL (8-26) Creatinine 8.0 mg/dL (0.7-1.3) Estimated GFR (Cockcroft-Gault) 8.0 Glucose Level 143 mg/dL (70-99) Calcium Level 8.8 mg/dL (8.5-10.1) Phosphorus Level 1.7 mg/dL (2.6-4.7) Albumin 2.4 g/dL (3.4-5.0) Test 12/04/18 07:17 Glucose (Fingerstick) 134 mg/dL (70-99) Laboratory Tests Test 12/03/18 11:51 12/03/18 20:47 12/04/18 06:10 12/04/18 07:17 Glucose (Fingerstick) 167 mg/dL (70-99) 134 mg/dL (70-99) 134 mg/dL (70-99) White Blood Count 6.6 x10^3/uL (4.0-11.0) Red Blood Count 2.67 x10^6/uL (4.30-5.70) Hemoglobin 8.2 g/dL (13.0-17.5) Hematocrit 24.3 % (39.0-53.0) Mean Corpuscular Volume 91 fL (79-100) Mean Corpuscular Hemoglobin 31 pg (25-35) Mean Corpuscular Hemoglobin Concent 34 g/dL (31-37) Red Cell Distribution Width 17.6 % (11.5-14.5) Platelet Count 103 x10^3/uL (140-400) Neutrophils (%) (Auto) 69 % (31-73) Lymphocytes (%) (Auto) 16 % (24-48) Monocytes (%) (Auto) 10 % (0-9) Eosinophils (%) (Auto) 5 % (0-3) Basophils (%) (Auto) 0 % (0-3) Neutrophils # (Auto) 4.6 x10^3uL (1.8-7.7) Lymphocytes # (Auto) 1.0 x10^3/uL (1.0-4.8) Monocytes # (Auto) 0.7 x10^3/uL (0.0-1.1) Eosinophils # (Auto) 0.3 x10^3/uL (0.0-0.7) Basophils # (Auto) 0.0 x10^3/uL (0.0-0.2) Sodium Level 137 mmol/L (136-145) Potassium Level 3.8 mmol/L (3.5-5.1) Chloride Level 100 mmol/L (98-107) Carbon Dioxide Level 31 mmol/L (21-32) Anion Gap 6 (6-14) Blood Urea Nitrogen 33 mg/dL (8-26) Creatinine 8.0 mg/dL (0.7-1.3) Estimated GFR (Cockcroft-Gault) 8.0 Glucose Level 143 mg/dL (70-99) Calcium Level 8.8 mg/dL (8.5-10.1) Phosphorus Level 1.7 mg/dL (2.6-4.7) Albumin 2.4 g/dL (3.4-5.0) Medications Current Medications Acetaminophen (Tylenol) 325 mg PRN Q4HRS PRN PO MILD PAIN / TEMP Last administered on 12/03/18 00:58; Start 11/24/18 at 20:30 Allopurinol (Zyloprim) 100 mg DAILY PO Last administered on 12/04/18 08:49; Start 11/25/18 at 09:00 Aspirin (Children'S Aspirin) 81 mg DAILY PO Last administered on 12/04/18 08:49 ; Start 11/25/18 at 09:00 Atorvastatin Calcium (Lipitor) 40 mg HS PO Last administered on 12/03/18 20:23 ; Start 11/24/18 at 21:00 Carvedilol (Coreg) 3.125 mg BIDWMEALS PO Last administered on 11/29/18 18:49; Start 11/24/18 at 21:00; Stop 11/30/18 at 10:19; Status DC Vitamin D (Vitamin D3) 1,000 unit DAILY PO Last administered on 12/04/18 08:50 ; Start 11/25/18 at 09:00 Clopidogrel Bisulfate (Plavix) 75 mg DAILY PO Last administered on 12/04/18 08: 49; Start 11/25/18 at 09:00 Cyanocobalamin (Vitamin B-12) 1,000 mcg DAILY PO Last administered on 12/04/18 08:49; Start 11/25/18 at 09:00 Acetaminophen/ Hydrocodone Bitart (Lortab 5/325) 1 tab PRN Q4HRS PRN PO MODERATE - SEVERE PAIN Last administered on 11/29/18 20:52; Start 11/24/18 at 20:30; Stop 11/30/18 at 11:04; Status DC Pregabalin (Lyrica) 50 mg HS PO Last administered on 11/30/18 20:18; Start at 21:00; Stop 12/01/18 at 12:12; Status DC Sevelamer Carbonate (Renvela) 800 mg TIDWMEALS PO Last administered on 08:49; Start 11/25/18 at 08:00 Vitamin B Complex/ Vitamin C (Krista-Beatriz) 1 tab DAILY PO Last administered on 08:49; Start 11/25/18 at 09:00 Lactobacillus Rhamnosus (Culturelle) 1 cap BID PO Last administered on 08:50; Start 11/24/18 at 21:00 Pantoprazole Sodium (Protonix) 40 mg DAILYAC PO Last administered on 12/04/18 08:49; Start 11/25/18 at 07:30 Insulin Human Lispro (HumaLOG) 0-5 UNITS TIDWMEALS SQ ; Start 11/24/18 at 21:00 ; Stop 11/24/18 at 21:57; Status DC Dextrose (Dextrose 50%-Water Syringe) 12.5 gm PRN Q15MIN PRN IV SEE COMMENTS; Start 11/24/18 at 20:45 Insulin Human Lispro (HumaLOG) 0-5 UNITS TIDWMEALS SQ ; Start 11/25/18 at 08:00 ; Stop 11/25/18 at 08:00; Status DC Insulin Human Lispro (HumaLOG) 0-5 UNITS BG 300-39... TIDWMEALS SQ ; Start at 08:00 Collagenase (Santyl) 1 judi DAILY TP Last administered on 12/04/18 08:49; Start 11/25/18 at 10:00 Meropenem 500 mg/ Sodium Chloride 50 ml @ 100 mls/hr Q12HR IV ; Start at 21:00; Status UNV Daptomycin 690 mg/ Sodium Chloride 50 ml @ 100 mls/hr MoWeFr@1600 IV Last administered on 12/02/18at 17:29; Start 11/25/18 at 16:00 Heparin Sodium (Porcine) (Heparin Sodium) 5,000 unit Q12HR SQ Last administered on 11/27/18at 20:28; Start 11/25/18 at 21:00; Stop 11/28/18 at 09 :44; Status DC Meropenem 500 mg/ Sodium Chloride 50 ml @ 100 mls/hr DAILY16 IV Last administered on 12/03/18at 17:11; Start 11/25/18 at 16:00 Linezolid (Zyvox) 600 mg BID PO Last administered on 11/28/18at 08:48; Start 11/25/18 at 11:00; Stop 11/28/18 at 10:04; Status DC Info (PHARMACY MONITORING -- do not chart) 1 each PRN DAILY PRN MC SEE COMMENTS ; Start 11/25/18 at 10:45; Stop 11/28/18 at 17:07; Status DC Sodium Chloride 1,000 ml @ 1,000 mls/hr Q1H PRN IV hypotension; Start at 14:30; Stop 11/25/18 at 20:30; Status DC Sodium Chloride 1,000 ml @ 400 mls/hr Q2H30M PRN IV PATENCY; Start 11/25/18 at 14:30; Stop 11/25/18 at 20:30; Status DC Info (PHARMACY MONITORING -- do not chart) 1 each PRN DAILY PRN MC SEE COMMENTS ; Start 11/25/18 at 14:45; Status UNV Info (PHARMACY MONITORING -- do not chart) 1 each PRN DAILY PRN MC SEE COMMENTS ; Start 11/25/18 at 14:45; Status UNV Ondansetron HCl (Zofran Odt) 4 mg PRN Q6HRS PRN PO NAUSEA/VOMITING Last administered on 12/01/18 07:30; Start 11/27/18 at 02:15 Magnesium Sulfate 50 ml @ 25 mls/hr PRN DAILY PRN IV for Mag < 1.7 on am labs; Start 11/27/18 at 14:00 Sodium Chloride 1,000 ml @ 1,000 mls/hr Q1H PRN IV hypotension; Start at 09:05; Stop 11/28/18 at 15:04; Status DC Albumin Human 200 ml @ 200 mls/hr 1X PRN PRN IV Hypotension; Start 11/28/18 at 09:15; Stop 11/28/18 at 15:14; Status DC Sodium Chloride 1,000 ml @ 400 mls/hr Q2H30M PRN IV PATENCY; Start 11/28/18 at 09:05; Stop 11/28/18 at 21:04; Status DC Info (PHARMACY MONITORING -- do not chart) 1 each PRN DAILY PRN MC SEE COMMENTS ; Start 11/28/18 at 09:15; Stop 11/28/18 at 17:07; Status DC Info (PHARMACY MONITORING -- do not chart) 1 each PRN DAILY PRN MC SEE COMMENTS ; Start 11/28/18 at 09:15; Stop 12/02/18 at 15:15; Status DC Sodium Chloride 1,000 ml @ 1,000 mls/hr Q1H PRN IV hypotension; Start 11/29/18 at 16:30; Stop 11/29/18 at 23:00; Status DC Info (PHARMACY MONITORING -- do not chart) 1 each PRN DAILY PRN MC SEE COMMENTS ; Start 11/29/18 at 16:45; Status UNV Info (PHARMACY MONITORING -- do not chart) 1 each PRN DAILY PRN MC SEE COMMENTS ; Start 11/29/18 at 16:45; Status UNV Info (PHARMACY MONITORING -- do not chart) 1 each PRN DAILY PRN MC SEE COMMENTS ; Start 11/30/18 at 08:30 Magnesium Sulfate 50 ml @ 25 mls/hr 1X ONCE IV Last administered on 11/30/18at 10:44; Start 11/30/18 at 10:00; Stop 11/30/18 at 11:59; Status DC Darbepoetin Reinaldo (Aranesp) 100 mcg WEEKLYHS SQ Last administered on 11/30/18at 20 :22; Start 11/30/18 at 21:00 Tramadol HCl (Ultram) 25 mg PRN Q6HRS PRN PO MODERATE PAIN Last administered on 11/30/18at 23:44; Start 11/30/18 at 11:00; Stop 12/01/18 at 12:12; Status DC Nystatin (Nystop) 1 judi BID TP Last administered on 12/04/18at 08:49; Start at 12:00 Sodium Chloride 1,000 ml @ 1,000 mls/hr Q1H PRN IV hypotension; Start 11/30/18 at 10:00; Stop 11/30/18 at 16:30; Status DC Albumin Human 200 ml @ 200 mls/hr 1X PRN PRN IV Hypotension; Start 11/30/18 at 10:00; Stop 11/30/18 at 16:30; Status DC Albumin Human 200 ml @ 100 mls/hr 1X ONCE IV Last administered on 11/30/18at 16 :45; Start 11/30/18 at 16:45; Stop 11/30/18 at 18:44; Status DC Albumin Human 500 ml @ 125 mls/hr Q4H IV Last administered on 12/01/18at 17:22; Start 12/01/18 at 12:00; Stop 12/01/18 at 19:59; Status DC Pregabalin (Lyrica) 25 mg HS PO Last administered on 12/03/18at 20:23; Start 12/01 at 21:00 Ondansetron HCl (Zofran Odt) 4 mg TIDAC PO Last administered on 12/04/18at 08:49 ; Start 12/01/18 at 16:30 Metoclopramide HCl (Reglan) 5 mg TIDACHC PO Last administered on 12/04/18at 08:49 ; Start 12/01/18 at 16:30 Acetaminophen/ Hydrocodone Bitart (Lortab 5/325) 0.5 tab PRN Q4HRS PRN PO MODERATE PAIN Last administered on 12/04/18at 10:19; Start 12/01/18 at 12:30 Sodium Chloride 1,000 ml @ 1,000 mls/hr Q1H PRN IV hypotension; Start 12/02/18 at 08:27; Stop 12/02/18 at 14:26; Status DC Albumin Human 200 ml @ 200 mls/hr 1X PRN PRN IV Hypotension; Start 12/02/18 at 08:30; Stop 12/02/18 at 14:29; Status DC Sodium Chloride 1,000 ml @ 400 mls/hr Q2H30M PRN IV PATENCY; Start 12/02/18 at 08:27; Stop 12/02/18 at 20:26; Status DC Info (PHARMACY MONITORING -- do not chart) 1 each PRN DAILY PRN MC SEE COMMENTS ; Start 12/02/18 at 08:30; Status UNV Info (PHARMACY MONITORING -- do not chart) 1 each PRN DAILY PRN MC SEE COMMENTS ; Start 12/02/18 at 08:30; Status UNV Ondansetron HCl (Zofran) 4 mg PRN Q6HRS PRN IV NAUSEA/VOMITING; Start 12/05/18 at 07:00; Stop 12/06/18 at 06:59 Morphine Sulfate (Morphine Sulfate) 1 mg PRN Q10MIN PRN IV SEVERE PAIN; Start 12/05/18 at 07:00; Stop 12/05/18 at 18:00 Ringer's Solution 1,000 ml @ 30 mls/hr Q24H IV ; Start 12/05/18 at 07:00; Stop 12/05/18 at 18:59 Lidocaine HCl (Xylocaine-Mpf 1% 2ml Vial) 2 ml PRN 1X PRN ID PRIOR TO IV START ; Start 12/05/18 at 07:00; Stop 12/05/18 at 07:01 Hydromorphone HCl (Dilaudid) 0.5 mg PRN Q10MIN PRN IV SEV PAIN, Second choice; Start 12/05/18 at 07:00; Stop 12/06/18 at 06:59 Carvedilol (Coreg) 3.125 mg BIDWMEALS PO Last administered on 12/04/18at 08:51; Start 12/03/18 at 08:00 Active Scripts Active Zofran (Ondansetron Hcl) 4 Mg Tablet 1 Tab PO Q6HRS Zyvox (Linezolid) 600 Mg Tablet 600 Mg PO BID 30 Days Hydrocodone-Apap 5-325 (Hydrocodone Bit/Acetaminophen) 1 Tab Tablet 1 Tab PO PRN Q4HRS PRN 30 Days Aspirin Ec (Aspirin) 81 Mg Tablet. 81 Mg PO DAILYWBKFT 30 Days [Pantoprazole] 40 MG Tablet. 40 Mg PO DAILYAC 30 Days Humalog (Insulin Lispro) 100 Unit/1 Ml Insuln.pen 0 Units SQ TIDWMEALS 30 Days BG 150-199= 1 units 200-299= 2 units 300-399= 4 units 400-499= 6 units ac tid sliding scale Culturelle (Lactobacillus Rhamnosus Gg) 1 Each Cap.sprink 1 Cap PO BID 30 Days Tylenol (Acetaminophen) 325 Mg Tablet 325 Mg PO PRN Q4HRS PRN 30 Days Carvedilol (Carvedilol) 3.125 Mg Tablet 3.125 Mg PO BIDWMEALS 30 Days Renvela (Sevelamer Carbonate) 800 Mg Tablet 800 Mg PO TIDWMEALS 30 Days Pantoprazole Sodium 40 Mg Tablet.dr 40 Mg PO DAILYAC 30 Days Krista-Beatriz Tablet (Folic Acid/Vitamin B Comp W-C) 0.8 Mg Tablet 1 Tab PO DAILY 30 Days Reported Vitamin B-12 (Cyanocobalamin (Vitamin B-12)) 1,000 Mcg Tablet 1 Tab PO DAILY Allopurinol 100 Mg Tablet 1 Tab PO DAILY Renal Caps Softgel (Folic Acid/Vitamin B Comp W-C) 1 Mg Capsule 1 Cap PO DAILY Acidophilus Lactobacilli (Lactobacillus Acidophilus) 1 Each Capsule 1 Each PO BID Protonix (Pantoprazole Sodium) 20 Mg Tablet.dr 40 Mg PO DAILY Renvela (Sevelamer Carbonate) 800 Mg Tablet 800 Mg PO TIDWMEALS Lyrica (Pregabalin) 50 Mg Capsule 50 Mg PO HS Tylenol (Acetaminophen) 325 Mg Tablet 1 Tab PO PRN Q4HRS Hydrocodone-Apap 5-325 (Hydrocodone Bit/Acetaminophen) 1 Tab Tablet 1 Tab PO PRN Q4HRS PRN Aspirin 81 Mg Tab.chew 81 Mg PO DAILY Carvedilol (Carvedilol) 3.125 Mg Tablet 3.125 Mg PO BIDWMEALS Lipitor (Atorvastatin Calcium) 40 Mg Tablet 40 Mg PO HS Clopidogrel (Clopidogrel Bisulfate) 75 Mg Tablet 75 Mg PO DAILY Vitamin D (Cholecalciferol (Vitamin D3)) 2,000 Unit Capsule 1 Cap PO DAILY [place] 5-325 Tablet (Acetaminophen/Hydrocodone Bitart) 1 Each Tablet 1 Tab PO PRN Q4HRS PRN Lyrica (Pregabalin) 50 Mg Capsule 25 Mg PO HS Clopidogrel (Clopidogrel Bisulfate) 75 Mg Tablet 1 Tab PO DAILY Atorvastatin Calcium 40 Mg Tablet 40 Mg PO HS Allopurinol 100 Mg Tablet 1 Tab PO DAILY Vitamin B-12 (Cyanocobalamin (Vitamin B-12)) 1,000 Mcg Tablet 1 Tab PO DAILY Vitamin D-3 (Cholecalciferol (Vitamin D3)) 2,000 Unit Capsule 1,000 Unit PO DAILY Vitals/I & O Vital Sign - Last 24 Hours 12/03/18 12/03/18 12/03/18 12/03/18 11:30 15:15 16:47 19:10 Temp 99.2 99.0 98.0 99.2 99.0 98.0 Pulse 62 50 60 62 Resp 16 20 18 B/P (MAP) 121/62 (81) 129/69 (89) 148/66 (93) Pulse Ox 93 96 96 O2 Delivery Room Air Room Air Room Air 12/03/18 12/03/18 12/04/18 12/04/18 19:15 23:05 03:55 07:00 Temp 99.1 98.8 99.7 99.1 98.8 99.7 Pulse 60 63 60 Resp 20 17 B/P (MAP) 142/62 (88) 128/54 (78) 124/59 (80) Pulse Ox 97 95 92 O2 Delivery Room Air Room Air Room Air Room Air 12/04/18 12/04/18 12/04/18 07:58 08:51 10:19 Resp 18 B/P (MAP) 124/59 Pulse Ox 92 O2 Delivery Room Air Room Air O2 Flow Rate 3.0 Intake and Output 12/03/18 12/03/18 12/04/18 15:01 23:01 07:01 Intake Total 280 ml 360 ml 600 ml Output Total 0 ml Balance 280 ml 360 ml 600 ml KIMI TIDWELL MD Dec 04, 2018 10:53
[2018-12-04 11:49] VITALS: BP 114/96
[2018-12-04 15:51] VITALS: BP 136/30
[2018-12-04] MEDS: MEROPENEM 500 MG in IV NORMAL SALINE 50ML 50 ML IV SCH (17:01)
[2018-12-04 19:25] VITALS: BP 103/40
[2018-12-04] MEDS: ATORVASTATIN CALCIUM 40 MG TABLET. PO SCH (20:15)
[2018-12-04] MEDS: PREGABALIN 25 MG CAPSULE PO SCH (20:15)
[2018-12-04 22:35] VITALS: BP 121/65
[2018-12-05 02:50] VITALS: BP 111/59
[2018-12-05] MEDS ORDERED: IV RINGERS,LACTATED 1000ML 1,000 ML IV SCH (07:00)
[2018-12-05] MEDS ORDERED: ONDANSETRON PF 4 MG/2 ML VIAL. IV PRN (07:00)
[2018-12-05] MEDS ORDERED: HYDROmorphone 2 MG/ML VIAL IV PRN (07:00)
[2018-12-05] MEDS ORDERED: MORPHINE SULFATE 2 MG/ML VIAL. IV PRN (07:00)
[2018-12-05] MEDS ORDERED: LIDOCAINE 1% PF 2 ML VIAL. ID PRN (07:00)
[2018-12-05 07:02] LABS: CALCIUM 8.7 mg/dL (8.5-10.1); CREATININE 9.6 mg/dL (0.7-1.3); GFR 6.4; POTASSIUM 4.2 mmol/L (3.5-5.1)
[2018-12-05 07:09] LABS: BASO % 0 % (0-3); EOS # 0.5 x10^3/uL (0.0-0.7); EOS % 6 % (0-3); HEMATOCRIT 23.6 % (39.0-53.0); LYMPH # 1.3 x10^3/uL (1.0-4.8); LYMPH % 18 % (24-48); MEAN CORPUSCULAR HEMOGLOBIN 31 pg (25-35); MEAN CORPUSCULAR HGB CONC 34 g/dL (31-37); MEAN CORPUSCULAR VOLUME 91 fL (79-100); MONO # 0.8 x10^3/uL (0.0-1.1); MONO % 11 % (0-9); NEUT # 4.8 x10^3uL (1.8-7.7); NEUT % 65 % (31-73); PLATELET COUNT 146 x10^3/uL (140-400); RED BLOOD COUNT 2.58 x10^6/uL (4.30-5.70); RED CELL DISTRIBUTION WIDTH 17.5 % (11.5-14.5); WHITE BLOOD COUNT 7.3 x10^3/uL (4.0-11.0)
--- NOTE | 2018-12-05 07:10 | NUR ---
Pt off unit for surgical procedure, amputation and debridement R 1st and 2nd toes. Assessment pending return.
[2018-12-05] MEDS ORDERED: PROPOFOL 20 ML IV ONE (07:15)
[2018-12-05] MEDS ORDERED: ONDANSETRON PF 4 MG/2 ML VIAL. ONE (07:15)
[2018-12-05] MEDS ORDERED: fentaNYL PF VIAL 100 MCG/2 ML VIAL ONE (07:15)
[2018-12-05] MEDS ORDERED: SEVOFLURANE 31 TO 60 MINUTES. IH ONE (07:15)
[2018-12-05] MEDS ORDERED: LIDOCAINE 2% PF 5 ML VIAL. ONE (07:15)
[2018-12-05] MEDS ORDERED: DEXAMETHASONE SOD PHOS 20 MG/5 ML VIAL. ONE (07:15)
[2018-12-05] MEDS ORDERED: SURGICEL FIBRILLAR 1X2 EACH. ONE (07:33)
[2018-12-05] MEDS ORDERED: LIDOCAINE 1% 20 ML VIAL. ONE (07:33)
[2018-12-05 07:42] LABS: PROTHROMBIN TIME PATIENT 17.4 SEC (11.7-14.0)
[2018-12-05] MEDS ORDERED: PHENYLEPHRINE in 0.9% NACL PF 1 MG/10 ML SYRINGE. IV ONE (07:56)
[2018-12-05] MEDS: CARVEDILOL 3.125 MG TABLET. PO SCH ×2 (08:00→17:00)
--- NOTE | 2018-12-05 08:15 | PDOC ---
Provider Note Provider Note Operative Report Dictated Pre-op: right 1st toe open ray amputation with necrotic tissue Post op: same Operation: debridement of the right 1st to ray amputation wound with amputation of the right 2nd toe and metatarsal bone, wound VAC placement Surgeon: Dr. Sita Byers Anesthesia: general Blood loss: 5ml SITA BYERS MD Dec 05, 2018 08:15
[2018-12-05] MEDS ORDERED: IV NORMAL SALINE 1000ML BAG 1,000 ML IV PRN ×2 (08:31)
[2018-12-05] MEDS ORDERED: DIALYSIS PATIENT. MC PRN ×2 (08:45)
[2018-12-05] MEDS ORDERED: ALBUMIN HUMAN 25% 200 ML IV PRN (08:45)
--- NOTE | 2018-12-05 08:55 | PDOC ---
SUBJECTIVE Subjective S: plt's improved O: vitals reviewed Gen: NAD, resting in bed Psych: pleasant mood and affect Labs: wbc 7.3, Hb 8.0, plt 146 fibrinogen nl PTT nl INR 1.7 A/P: He is a 77-year-old male with peripheral arterial disease and right foot wound as well as anemia and thrombocytopenia and end-stage renal disease and multiple other comorbidities. Thrombocytopenia: platelets are improving, almost normal, suspect linezolid was contributing significantly as well as other multifactorial reasons, heparin has been avoided recently End-stage renal disease: Remains on dialysis, is on Aranesp 100 �g weekly, ferritin 273 and iron panel w/ sat of 47%, no need for iron Infection: On antibiotics, vascular surgery is involved, on Plavix and aspirin, okay to continue these with platelet count greater than 50 Suppressed TSH: Defer to primary Anemia: he'll continue the Aranesp, transfuse if Hb <8 On nausea: Improved with antiemetics Disposition: May be going to [facility] after discharge, f/u w/ us is prn Thank you kindly and please do not hesitate to call w/ further questions. OBJECTIVE Vital Signs Vital Signs Date Time Temp Pulse Resp B/P (MAP) Pulse Ox O2 Delivery O2 Flow Rate FiO2 12/05/18 06:50 98.1 60 20 95/55 95 Room Air 98.1 12/05/18 02:50 98.1 62 20 111/59 (76) 97 Nasal Cannula 2.0 98.1 12/04/18 22:35 98.7 60 20 121/65 (83) 93 Nasal Cannula 2.0 98.7 12/04/18 19:26 Room Air 12/04/18 19:25 97.7 59 18 103/40 (61) 96 Room Air 97.7 12/04/18 17:02 63 12/04/18 15:51 99.1 60 136/30 (65) 97 Room Air 99.1 12/04/18 11:49 99.3 58 114/96 (102) 93 Room Air 99.3 12/04/18 11:19 18 92 Room Air 3.0 12/04/18 10:19 18 92 Room Air 3.0 12/04/18 08:51 124/59 I & O Intake and Output 12/05/18 07:01 Intake Total 1150 ml Balance 1150 ml Intake Oral 1100 ml IV Total 50 ml # Voids 1 # Bowel Movements 3 COMMENT Lab Laboratory Tests Test 12/04/18 11:12 12/04/18 16:33 12/04/18 21:03 12/05/18 06:30 Glucose (Fingerstick) 176 mg/dL (70-99) 130 mg/dL (70-99) 138 mg/dL (70-99) 61 mg/dL (70-99) Test 12/05/18 06:31 12/05/18 06:40 Glucose (Fingerstick) 124 mg/dL (70-99) White Blood Count 7.3 x10^3/uL (4.0-11.0) Red Blood Count 2.58 x10^6/uL (4.30-5.70) Hemoglobin 8.0 g/dL (13.0-17.5) Hematocrit 23.6 % (39.0-53.0) Mean Corpuscular Volume 91 fL (79-100) Mean Corpuscular Hemoglobin 31 pg (25-35) Mean Corpuscular Hemoglobin Concent 34 g/dL (31-37) Red Cell Distribution Width 17.5 % (11.5-14.5) Platelet Count 146 x10^3/uL (140-400) Neutrophils (%) (Auto) 65 % (31-73) Lymphocytes (%) (Auto) 18 % (24-48) Monocytes (%) (Auto) 11 % (0-9) Eosinophils (%) (Auto) 6 % (0-3) Basophils (%) (Auto) 0 % (0-3) Neutrophils # (Auto) 4.8 x10^3uL (1.8-7.7) Lymphocytes # (Auto) 1.3 x10^3/uL (1.0-4.8) Monocytes # (Auto) 0.8 x10^3/uL (0.0-1.1) Eosinophils # (Auto) 0.5 x10^3/uL (0.0-0.7) Basophils # (Auto) 0.0 x10^3/uL (0.0-0.2) Prothrombin Time 17.4 SEC (11.7-14.0) Prothromb Time International Ratio 1.5 (0.8-1.1) Sodium Level 139 mmol/L (136-145) Potassium Level 4.2 mmol/L (3.5-5.1) Chloride Level 101 mmol/L (98-107) Carbon Dioxide Level 31 mmol/L (21-32) Anion Gap 7 (6-14) Blood Urea Nitrogen 46 mg/dL (8-26) Creatinine 9.6 mg/dL (0.7-1.3) Estimated GFR (Cockcroft-Gault) 6.4 Glucose Level 128 mg/dL (70-99) Calcium Level 8.7 mg/dL (8.5-10.1) ROSETTE PEARSON MD Dec 05, 2018 08:55
[2018-12-05] MEDS: COLLAGENASE 250 UNIT/GM TOPICAL OINTMENT 30GM TUBE. TP SCH (09:00)
[2018-12-05] MEDS: NYSTATIN TOPICAL POWDER 15GM BOTTLE. TP SCH ×2 (09:00→21:47)
--- NOTE | 2018-12-05 09:02 | OP ---
DATE OF SURGERY: 12/05/2018 SURGEON: Sita Byers M.D. ANESTHESIA USED: General anesthesia. PREOPERATIVE DIAGNOSES: Right foot recent first toe ray amputation for severe gangrene and infection, this has developed further gangrene along the superior aspect of the wound adjacent to the second metatarsal bone, for which I recommend surgical debridement. POSTOPERATIVE DIAGNOSES: Right foot recent first toe ray amputation for severe gangrene and infection, this has developed further gangrene along the superior aspect of the wound adjacent to the second metatarsal bone, for which I recommend surgical debridement. OPERATION PERFORMED: 1. Right first toe open ray amputation wound debridement with amputation of his second toe including excision of the metatarsal head and proximal and mid metatarsal bone. 2. Right foot wound VAC dressing. BLOOD LOSS: 5 mL. INDICATIONS: The patient is a 77-year-old male with history of severe right lower extremity peripheral arterial disease and diabetes mellitus. He initially presented to [facility] with right first toe gangrene and severe infection. For this, he underwent a right open first toe ray amputation. He has been treated with a wound VAC. Portions of his wound along the distal aspect are healthy with granulation tissue; however, along the superior portion of the wounds adjacent to the second metatarsal bone, there is necrotic tissue and gangrene throughout this area of the wound. I recommend surgical debridement of this and likely second toe and metatarsal bone amputation. Informed consent was obtained from the patient and the family including the risk of nonhealing wound, possible need for future below the knee amputation if we cannot get this wound to heal, especially in light of his severe peripheral arterial disease and no further options for revascularization. DETAILS OF THE OPERATION: The patient was brought to the operating room and placed on table in supine position. He received general anesthesia monitored throughout the case by the anesthesiologist. His right foot was prepped and draped by normal sterile fashion. Sharp excisional debridement was used to excise necrotic tissue off the superior aspect of the wound where the first toe had been amputated, just beneath this was a copious amount of necrotic tissue which encompassed around the second metatarsal bone. I felt he needed to have the second toe removed for a chance to get this wound to heal. I therefore made an elliptical incision around the base of the second toe, extended the incision down along the length of the metatarsal bone and transected the mid metatarsal bone within the wound and removing the toe. I brought the bone back with a rongeur. I explored other areas of the wound. There was some necrotic tissue overlying the first metatarsal bone that I excised. I also excised more of the first metatarsal bone back to healthier tissue. After debridement, removing all tendons and necrotic tissue within the wound, the wound appeared healthy. There was adequate bleeding. Hemostasis was gained with electrocautery. I irrigated the open wound with copious amounts of antibiotic solution. A wound VAC sponge was placed within the wound and placed to suction. He tolerated the surgery with no immediate complications. SITA BYERS MD DR: KATLIN/dianna JOB#: [id number] / [id number]
[2018-12-05] MEDS ORDERED: MORPHINE SULFATE 4 MG/ML VIAL. ONE (09:35)
--- NOTE | 2018-12-05 09:50 | PDOC ---
Renal-Progress Notes Subjective Notes Notes NONE History of Present Illness Hx of present illness STABLE Vitals Vitals Vital Signs Date Time Temp Pulse Resp B/P (MAP) Pulse Ox O2 Delivery O2 Flow Rate FiO2 12/05/18 09:39 20 100 Nasal Cannula 3.0 12/05/18 06:50 98.1 60 95/55 98.1 Weight Weight [ ] I.O. Intake and Output Intake and Output 12/05/18 07:01 Intake Total 1150 ml Balance 1150 ml Intake Oral 1100 ml IV Total 50 ml # Voids 1 # Bowel Movements 3 Labs Labs Laboratory Tests Test 12/04/18 11:12 12/04/18 16:33 12/04/18 21:03 12/05/18 06:30 Glucose (Fingerstick) 176 mg/dL (70-99) 130 mg/dL (70-99) 138 mg/dL (70-99) 61 mg/dL (70-99) Test 12/05/18 06:31 12/05/18 06:40 12/05/18 09:15 Glucose (Fingerstick) 124 mg/dL (70-99) 111 mg/dL (70-99) White Blood Count 7.3 x10^3/uL (4.0-11.0) Red Blood Count 2.58 x10^6/uL (4.30-5.70) Hemoglobin 8.0 g/dL (13.0-17.5) Hematocrit 23.6 % (39.0-53.0) Mean Corpuscular Volume 91 fL (79-100) Mean Corpuscular Hemoglobin 31 pg (25-35) Mean Corpuscular Hemoglobin Concent 34 g/dL (31-37) Red Cell Distribution Width 17.5 % (11.5-14.5) Platelet Count 146 x10^3/uL (140-400) Neutrophils (%) (Auto) 65 % (31-73) Lymphocytes (%) (Auto) 18 % (24-48) Monocytes (%) (Auto) 11 % (0-9) Eosinophils (%) (Auto) 6 % (0-3) Basophils (%) (Auto) 0 % (0-3) Neutrophils # (Auto) 4.8 x10^3uL (1.8-7.7) Lymphocytes # (Auto) 1.3 x10^3/uL (1.0-4.8) Monocytes # (Auto) 0.8 x10^3/uL (0.0-1.1) Eosinophils # (Auto) 0.5 x10^3/uL (0.0-0.7) Basophils # (Auto) 0.0 x10^3/uL (0.0-0.2) Prothrombin Time 17.4 SEC (11.7-14.0) Prothromb Time International Ratio 1.5 (0.8-1.1) Sodium Level 139 mmol/L (136-145) Potassium Level 4.2 mmol/L (3.5-5.1) Chloride Level 101 mmol/L (98-107) Carbon Dioxide Level 31 mmol/L (21-32) Anion Gap 7 (6-14) Blood Urea Nitrogen 46 mg/dL (8-26) Creatinine 9.6 mg/dL (0.7-1.3) Estimated GFR (Cockcroft-Gault) 6.4 Glucose Level 128 mg/dL (70-99) Calcium Level 8.7 mg/dL (8.5-10.1) Review of Systems Constitutional: yes: alert, oriented Ears/Nose/Throat: Yes: no symptom reported Eyes: Yes: no symptom reported Pulmonary: Yes no symptom reported Cardiovascular: Yes no symptom reported Gastrointestional: Yes: no symptom reported Genitourinary: Yes: no symptom reported Musculoskeletal: Yes: no symptom reported Skin: Yes no symptom reported Psychiatric/Neurological: Yes: no symptom reported Endocrine: Yes: no symptom reported Physical Exam General Appearance: no apparent distress Skin: warm Respiratory: bilateral CTA Heart: S1S2, RRR Abdomen: soft Genitourinary: no mass Extremities: pulses present Assessment Assessment IMP ESRD DM II ANEMIA HTN RIGHT TOE WOUND PLAN HD TODAY' UF TO DW TOE AMP TODAY CONT BELLA CHAITANYA HILARIO MD Dec 05, 2018 09:50
--- NOTE | 2018-12-05 10:11 | PDOC ---
PROGRESS NOTES Subjective Subjective seen in recovery room. sleepy. lab reviewed. platelet count 146K Objective Objective Vital Signs Date Time Temp Pulse Resp B/P (MAP) Pulse Ox O2 Delivery O2 Flow Rate FiO2 12/05/18 09:39 20 100 Nasal Cannula 3.0 12/05/18 08:55 98.1 60 96/48 98.1 Intake and Output 12/05/18 07:01 Intake Total 1150 ml Balance 1150 ml Intake Oral 1100 ml IV Total 50 ml # Voids 1 # Bowel Movements 3 Physical Exam Abdomen: Soft Heart: Normal S1, Normal S2 Extremities: No edema, Other (dressing right foot with wound vac) General: Other (sleepy) HEENT: Atraumatic Lungs: Clear to auscultation Neuro: Other (sleepy) Psych/Mental Status: Mood NL Skin: No rashes Assessment Assessment necrotic right foot wound debridement of right first ray and 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 improved and almost normal nausea and vomiting resolved anemia of chronic disease Plan Plan of Care continue wound care and wound vac hemodialysis today continue iv daptomycin and meropenem Comment Review of Relevant I have reviewed the following items simeon (where applicable) has been applied. Labs Laboratory Tests Test 12/03/18 11:51 12/03/18 20:47 12/04/18 06:10 12/04/18 07:17 Glucose (Fingerstick) 167 mg/dL (70-99) 134 mg/dL (70-99) 134 mg/dL (70-99) White Blood Count 6.6 x10^3/uL (4.0-11.0) Red Blood Count 2.67 x10^6/uL (4.30-5.70) Hemoglobin 8.2 g/dL (13.0-17.5) Hematocrit 24.3 % (39.0-53.0) Mean Corpuscular Volume 91 fL (79-100) Mean Corpuscular Hemoglobin 31 pg (25-35) Mean Corpuscular Hemoglobin Concent 34 g/dL (31-37) Red Cell Distribution Width 17.6 % (11.5-14.5) Platelet Count 103 x10^3/uL (140-400) Neutrophils (%) (Auto) 69 % (31-73) Lymphocytes (%) (Auto) 16 % (24-48) Monocytes (%) (Auto) 10 % (0-9) Eosinophils (%) (Auto) 5 % (0-3) Basophils (%) (Auto) 0 % (0-3) Neutrophils # (Auto) 4.6 x10^3uL (1.8-7.7) Lymphocytes # (Auto) 1.0 x10^3/uL (1.0-4.8) Monocytes # (Auto) 0.7 x10^3/uL (0.0-1.1) Eosinophils # (Auto) 0.3 x10^3/uL (0.0-0.7) Basophils # (Auto) 0.0 x10^3/uL (0.0-0.2) Sodium Level 137 mmol/L (136-145) Potassium Level 3.8 mmol/L (3.5-5.1) Chloride Level 100 mmol/L (98-107) Carbon Dioxide Level 31 mmol/L (21-32) Anion Gap 6 (6-14) Blood Urea Nitrogen 33 mg/dL (8-26) Creatinine 8.0 mg/dL (0.7-1.3) Estimated GFR (Cockcroft-Gault) 8.0 Glucose Level 143 mg/dL (70-99) Calcium Level 8.8 mg/dL (8.5-10.1) Phosphorus Level 1.7 mg/dL (2.6-4.7) Albumin 2.4 g/dL (3.4-5.0) Test 12/04/18 11:12 12/04/18 16:33 12/04/18 21:03 12/05/18 06:30 Glucose (Fingerstick) 176 mg/dL (70-99) 130 mg/dL (70-99) 138 mg/dL (70-99) 61 mg/dL (70-99) Test 12/05/18 06:31 12/05/18 06:40 12/05/18 09:15 Glucose (Fingerstick) 124 mg/dL (70-99) 111 mg/dL (70-99) White Blood Count 7.3 x10^3/uL (4.0-11.0) Red Blood Count 2.58 x10^6/uL (4.30-5.70) Hemoglobin 8.0 g/dL (13.0-17.5) Hematocrit 23.6 % (39.0-53.0) Mean Corpuscular Volume 91 fL (79-100) Mean Corpuscular Hemoglobin 31 pg (25-35) Mean Corpuscular Hemoglobin Concent 34 g/dL (31-37) Red Cell Distribution Width 17.5 % (11.5-14.5) Platelet Count 146 x10^3/uL (140-400) Neutrophils (%) (Auto) 65 % (31-73) Lymphocytes (%) (Auto) 18 % (24-48) Monocytes (%) (Auto) 11 % (0-9) Eosinophils (%) (Auto) 6 % (0-3) Basophils (%) (Auto) 0 % (0-3) Neutrophils # (Auto) 4.8 x10^3uL (1.8-7.7) Lymphocytes # (Auto) 1.3 x10^3/uL (1.0-4.8) Monocytes # (Auto) 0.8 x10^3/uL (0.0-1.1) Eosinophils # (Auto) 0.5 x10^3/uL (0.0-0.7) Basophils # (Auto) 0.0 x10^3/uL (0.0-0.2) Prothrombin Time 17.4 SEC (11.7-14.0) Prothromb Time International Ratio 1.5 (0.8-1.1) Sodium Level 139 mmol/L (136-145) Potassium Level 4.2 mmol/L (3.5-5.1) Chloride Level 101 mmol/L (98-107) Carbon Dioxide Level 31 mmol/L (21-32) Anion Gap 7 (6-14) Blood Urea Nitrogen 46 mg/dL (8-26) Creatinine 9.6 mg/dL (0.7-1.3) Estimated GFR (Cockcroft-Gault) 6.4 Glucose Level 128 mg/dL (70-99) Calcium Level 8.7 mg/dL (8.5-10.1) Laboratory Tests Test 12/04/18 11:12 12/04/18 16:33 12/04/18 21:03 12/05/18 06:30 Glucose (Fingerstick) 176 mg/dL (70-99) 130 mg/dL (70-99) 138 mg/dL (70-99) 61 mg/dL (70-99) Test 12/05/18 06:31 12/05/18 06:40 12/05/18 09:15 Glucose (Fingerstick) 124 mg/dL (70-99) 111 mg/dL (70-99) White Blood Count 7.3 x10^3/uL (4.0-11.0) Red Blood Count 2.58 x10^6/uL (4.30-5.70) Hemoglobin 8.0 g/dL (13.0-17.5) Hematocrit 23.6 % (39.0-53.0) Mean Corpuscular Volume 91 fL (79-100) Mean Corpuscular Hemoglobin 31 pg (25-35) Mean Corpuscular Hemoglobin Concent 34 g/dL (31-37) Red Cell Distribution Width 17.5 % (11.5-14.5) Platelet Count 146 x10^3/uL (140-400) Neutrophils (%) (Auto) 65 % (31-73) Lymphocytes (%) (Auto) 18 % (24-48) Monocytes (%) (Auto) 11 % (0-9) Eosinophils (%) (Auto) 6 % (0-3) Basophils (%) (Auto) 0 % (0-3) Neutrophils # (Auto) 4.8 x10^3uL (1.8-7.7) Lymphocytes # (Auto) 1.3 x10^3/uL (1.0-4.8) Monocytes # (Auto) 0.8 x10^3/uL (0.0-1.1) Eosinophils # (Auto) 0.5 x10^3/uL (0.0-0.7) Basophils # (Auto) 0.0 x10^3/uL (0.0-0.2) Prothrombin Time 17.4 SEC (11.7-14.0) Prothromb Time International Ratio 1.5 (0.8-1.1) Sodium Level 139 mmol/L (136-145) Potassium Level 4.2 mmol/L (3.5-5.1) Chloride Level 101 mmol/L (98-107) Carbon Dioxide Level 31 mmol/L (21-32) Anion Gap 7 (6-14) Blood Urea Nitrogen 46 mg/dL (8-26) Creatinine 9.6 mg/dL (0.7-1.3) Estimated GFR (Cockcroft-Gault) 6.4 Glucose Level 128 mg/dL (70-99) Calcium Level 8.7 mg/dL (8.5-10.1) Medications Current Medications Acetaminophen (Tylenol) 325 mg PRN Q4HRS PRN PO MILD PAIN / TEMP Last administered on 12/03/18 00:58; Start 11/24/18 at 20:30 Allopurinol (Zyloprim) 100 mg DAILY PO Last administered on 12/04/18 08:49; Start 11/25/18 at 09:00 Aspirin (Children'S Aspirin) 81 mg DAILY PO Last administered on 12/04/18 08:49 ; Start 11/25/18 at 09:00 Atorvastatin Calcium (Lipitor) 40 mg HS PO Last administered on 12/04/18 20:15 ; Start 11/24/18 at 21:00 Carvedilol (Coreg) 3.125 mg BIDWMEALS PO Last administered on 11/29/18 18:49; Start 11/24/18 at 21:00; Stop 11/30/18 at 10:19; Status DC Vitamin D (Vitamin D3) 1,000 unit DAILY PO Last administered on 12/04/18 08:50 ; Start 11/25/18 at 09:00 Clopidogrel Bisulfate (Plavix) 75 mg DAILY PO Last administered on 12/04/18 08: 49; Start 11/25/18 at 09:00 Cyanocobalamin (Vitamin B-12) 1,000 mcg DAILY PO Last administered on 12/04/18 08:49; Start 11/25/18 at 09:00 Acetaminophen/ Hydrocodone Bitart (Lortab 5/325) 1 tab PRN Q4HRS PRN PO MODERATE - SEVERE PAIN Last administered on 11/29/18 20:52; Start 11/24/18 at 20:30; Stop 11/30/18 at 11:04; Status DC Pregabalin (Lyrica) 50 mg HS PO Last administered on 1/2/19at 20:18; Start at 21:00; Stop 12/01/18 at 12:12; Status DC Sevelamer Carbonate (Renvela) 800 mg TIDWMEALS PO Last administered on 17:01; Start 11/25/18 at 08:00 Vitamin B Complex/ Vitamin C (Krista-Beatriz) 1 tab DAILY PO Last administered on 08:49; Start 11/25/18 at 09:00 Lactobacillus Rhamnosus (Culturelle) 1 cap BID PO Last administered on 20:15; Start 11/24/18 at 21:00 Pantoprazole Sodium (Protonix) 40 mg DAILYAC PO Last administered on 12/04/18 08:49; Start 11/25/18 at 07:30 Insulin Human Lispro (HumaLOG) 0-5 UNITS TIDWMEALS SQ ; Start 11/24/18 at 21:00 ; Stop 11/24/18 at 21:57; Status DC Dextrose (Dextrose 50%-Water Syringe) 12.5 gm PRN Q15MIN PRN IV SEE COMMENTS; Start 11/24/18 at 20:45 Insulin Human Lispro (HumaLOG) 0-5 UNITS TIDWMEALS SQ ; Start 11/25/18 at 08:00 ; Stop 11/25/18 at 08:00; Status DC Insulin Human Lispro (HumaLOG) 0-5 UNITS BG 300-39... TIDWMEALS SQ Last administered on 12/04/18 11:51; Start 11/25/18 at 08:00 Collagenase (Santyl) 1 judi DAILY TP Last administered on 12/04/18 08:49; Start 11/25/18 at 10:00 Meropenem 500 mg/ Sodium Chloride 50 ml @ 100 mls/hr Q12HR IV ; Start at 21:00; Status UNV Daptomycin 690 mg/ Sodium Chloride 50 ml @ 100 mls/hr [id number] IV Last administered on 12/02/18 17:29; Start 11/25/18 at 16:00 Heparin Sodium (Porcine) (Heparin Sodium) 5,000 unit Q12HR SQ Last administered on 11/27/18at 20:28; Start 11/25/18 at 21:00; Stop 11/28/18 at 09 :44; Status DC Meropenem 500 mg/ Sodium Chloride 50 ml @ 100 mls/hr DAILY16 IV Last administered on 12/04/18at 17:01; Start 11/25/18 at 16:00 Linezolid (Zyvox) 600 mg BID PO Last administered on 11/28/18at 08:48; Start 11/25/18 at 11:00; Stop 11/28/18 at 10:04; Status DC Info (PHARMACY MONITORING -- do not chart) 1 each PRN DAILY PRN MC SEE COMMENTS ; Start 11/25/18 at 10:45; Stop 11/28/18 at 17:07; Status DC Sodium Chloride 1,000 ml @ 1,000 mls/hr Q1H PRN IV hypotension; Start at 14:30; Stop 11/25/18 at 20:30; Status DC Sodium Chloride 1,000 ml @ 400 mls/hr Q2H30M PRN IV PATENCY; Start 11/25/18 at 14:30; Stop 11/25/18 at 20:30; Status DC Info (PHARMACY MONITORING -- do not chart) 1 each PRN DAILY PRN MC SEE COMMENTS ; Start 11/25/18 at 14:45; Status UNV Info (PHARMACY MONITORING -- do not chart) 1 each PRN DAILY PRN MC SEE COMMENTS ; Start 11/25/18 at 14:45; Status UNV Ondansetron HCl (Zofran Odt) 4 mg PRN Q6HRS PRN PO NAUSEA/VOMITING Last administered on 12/01/18at 07:30; Start 11/27/18 at 02:15 Magnesium Sulfate 50 ml @ 25 mls/hr PRN DAILY PRN IV for Mag < 1.7 on am labs; Start 11/27/18 at 14:00 Sodium Chloride 1,000 ml @ 1,000 mls/hr Q1H PRN IV hypotension; Start at 09:05; Stop 11/28/18 at 15:04; Status DC Albumin Human 200 ml @ 200 mls/hr 1X PRN PRN IV Hypotension; Start 11/28/18 at 09:15; Stop 11/28/18 at 15:14; Status DC Sodium Chloride 1,000 ml @ 400 mls/hr Q2H30M PRN IV PATENCY; Start 11/28/18 at 09:05; Stop 11/28/18 at 21:04; Status DC Info (PHARMACY MONITORING -- do not chart) 1 each PRN DAILY PRN MC SEE COMMENTS ; Start 11/28/18 at 09:15; Stop 11/28/18 at 17:07; Status DC Info (PHARMACY MONITORING -- do not chart) 1 each PRN DAILY PRN MC SEE COMMENTS ; Start 11/28/18 at 09:15; Stop 12/02/18 at 15:15; Status DC Sodium Chloride 1,000 ml @ 1,000 mls/hr Q1H PRN IV hypotension; Start 11/29/18 at 16:30; Stop 11/29/18 at 23:00; Status DC Info (PHARMACY MONITORING -- do not chart) 1 each PRN DAILY PRN MC SEE COMMENTS ; Start 11/29/18 at 16:45; Status UNV Info (PHARMACY MONITORING -- do not chart) 1 each PRN DAILY PRN MC SEE COMMENTS ; Start 11/29/18 at 16:45; Status UNV Info (PHARMACY MONITORING -- do not chart) 1 each PRN DAILY PRN MC SEE COMMENTS ; Start 11/30/18 at 08:30 Magnesium Sulfate 50 ml @ 25 mls/hr 1X ONCE IV Last administered on 11/30/18at 10:44; Start 11/30/18 at 10:00; Stop 11/30/18 at 11:59; Status DC Darbepoetin Reinaldo (Aranesp) 100 mcg WEEKLYHS SQ Last administered on 11/30/18at 20 :22; Start 11/30/18 at 21:00 Tramadol HCl (Ultram) 25 mg PRN Q6HRS PRN PO MODERATE PAIN Last administered on 11/30/18at 23:44; Start 11/30/18 at 11:00; Stop 12/01/18 at 12:12; Status DC Nystatin (Nystop) 1 judi BID TP Last administered on 12/04/18at 20:15; Start at 12:00 Sodium Chloride 1,000 ml @ 1,000 mls/hr Q1H PRN IV hypotension; Start 11/30/18 at 10:00; Stop 11/30/18 at 16:30; Status DC Albumin Human 200 ml @ 200 mls/hr 1X PRN PRN IV Hypotension; Start 11/30/18 at 10:00; Stop 11/30/18 at 16:30; Status DC Albumin Human 200 ml @ 100 mls/hr 1X ONCE IV Last administered on 11/30/18at 16 :45; Start 11/30/18 at 16:45; Stop 11/30/18 at 18:44; Status DC Albumin Human 500 ml @ 125 mls/hr Q4H IV Last administered on 12/01/18at 17:22; Start 12/01/18 at 12:00; Stop 12/01/18 at 19:59; Status DC Pregabalin (Lyrica) 25 mg HS PO Last administered on 12/04/18at 20:15; Start 12/01 at 21:00 Ondansetron HCl (Zofran Odt) 4 mg TIDAC PO Last administered on 12/04/18at 17:01 ; Start 12/01/18 at 16:30 Metoclopramide HCl (Reglan) 5 mg TIDACHC PO Last administered on 12/04/18at 20:15 ; Start 12/01/18 at 16:30 Acetaminophen/ Hydrocodone Bitart (Lortab 5/325) 0.5 tab PRN Q4HRS PRN PO MODERATE PAIN Last administered on 12/04/18at 23:14; Start 12/01/18 at 12:30 Sodium Chloride 1,000 ml @ 1,000 mls/hr Q1H PRN IV hypotension; Start 12/02/18 at 08:27; Stop 12/02/18 at 14:26; Status DC Albumin Human 200 ml @ 200 mls/hr 1X PRN PRN IV Hypotension; Start 12/02/18 at 08:30; Stop 12/02/18 at 14:29; Status DC Sodium Chloride 1,000 ml @ 400 mls/hr Q2H30M PRN IV PATENCY; Start 12/02/18 at 08:27; Stop 12/02/18 at 20:26; Status DC Info (PHARMACY MONITORING -- do not chart) 1 each PRN DAILY PRN MC SEE COMMENTS ; Start 12/02/18 at 08:30; Status UNV Info (PHARMACY MONITORING -- do not chart) 1 each PRN DAILY PRN MC SEE COMMENTS ; Start 12/02/18 at 08:30; Status UNV Ondansetron HCl (Zofran) 4 mg PRN Q6HRS PRN IV NAUSEA/VOMITING; Start 12/05/18 at 07:00; Stop 12/06/18 at 06:59 Morphine Sulfate (Morphine Sulfate) 1 mg PRN Q10MIN PRN IV SEVERE PAIN Last administered on 12/05/18at 09:39; Start 12/05/18 at 07:00; Stop 12/05/18 at 18:00 Ringer's Solution 1,000 ml @ 30 mls/hr Q24H IV ; Start 12/05/18 at 07:00; Stop 12/05/18 at 18:59 Lidocaine HCl (Xylocaine-Mpf 1% 2ml Vial) 2 ml PRN 1X PRN ID PRIOR TO IV START ; Start 12/05/18 at 07:00; Stop 12/05/18 at 07:01; Status DC Hydromorphone HCl (Dilaudid) 0.5 mg PRN Q10MIN PRN IV SEV PAIN, Second choice; Start 12/05/18 at 07:00; Stop 12/06/18 at 06:59 Carvedilol (Coreg) 3.125 mg BIDWMEALS PO Last administered on 12/04/18at 17:02; Start 12/03/18 at 08:00 Sodium Chloride 500 ml @ 30 mls/hr [id number] IV ; Start 12/05/18 at 06:30; Stop at 06:29 Cefazolin Sodium 1 gm/Sodium Chloride 500 ml @ 500 mls/hr 1X ONCE IRR Last administered on 12/05/18at 07:45; Start 12/05/18 at 08:00; Stop 12/05/18 at 08:59; Status DC Sevoflurane (Ultane) 30 ml STK-MED ONCE IH ; Start 12/05/18 at 07:15; Stop at 07:16; Status DC Fentanyl Citrate (Fentanyl 2ml Vial) 100 mcg STK-MED ONCE .ROUTE ; Start at 07:15; Stop 12/05/18 at 07:17; Status DC Propofol 20 ml @ As Directed STK-MED ONCE IV ; Start 12/05/18 at 07:15; Stop 12/05 at 07:17; Status DC Lidocaine HCl (Lidocaine Pf 2% Vial) 5 ml STK-MED ONCE .ROUTE ; Start 12/05/18 at 07:15; Stop 12/05/18 at 07:17; Status DC Dexamethasone Sodium Phosphate (Decadron) 20 mg STK-MED ONCE .ROUTE ; Start 12/05 at 07:15; Stop 12/05/18 at 07:17; Status DC Ondansetron HCl (Zofran) 4 mg STK-MED ONCE .ROUTE ; Start 12/05/18 at 07:15; Stop 12/05/18 at 07:17; Status DC Lidocaine HCl 20 ml STK-MED ONCE .ROUTE ; Start 12/05/18 at 07:33; Stop 12/05/18 at 07:34; Status DC Cellulose (Surgicel Fibrillar 1x2) 1 each STK-MED ONCE .ROUTE ; Start 12/05/18 at 07:33; Stop 12/05/18 at 07:34; Status DC Phenylephrine HCl (PHENYLEPHRINE in 0.9% NACL PF) 1 mg STK-MED ONCE IV ; Start 12/05/18 at 07:56; Stop 12/05/18 at 07:58; Status DC Sodium Chloride 1,000 ml @ 1,000 mls/hr Q1H PRN IV hypotension; Start 12/05/18 at 08:31; Stop 12/05/18 at 14:30 Albumin Human 200 ml @ 200 mls/hr 1X PRN PRN IV Hypotension; Start 12/05/18 at 08:45; Stop 12/05/18 at 14:44 Sodium Chloride 1,000 ml @ 400 mls/hr Q2H30M PRN IV PATENCY; Start 12/05/18 at 08:31; Stop 12/05/18 at 20:30 Info (PHARMACY MONITORING -- do not chart) 1 each PRN DAILY PRN MC SEE COMMENTS ; Start 12/05/18 at 08:45; Status UNV Info (PHARMACY MONITORING -- do not chart) 1 each PRN DAILY PRN MC SEE COMMENTS ; Start 12/05/18 at 08:45; Status Cancel Morphine Sulfate (Morphine Sulfate) 4 mg STK-MED ONCE .ROUTE ; Start 12/05/18 at 09:35; Stop 12/05/18 at 09:37; Status DC Active Scripts Active Zofran (Ondansetron Hcl) 4 Mg Tablet 1 Tab PO Q6HRS Zyvox (Linezolid) 600 Mg Tablet 600 Mg PO BID 30 Days Hydrocodone-Apap 5-325 (Hydrocodone Bit/Acetaminophen) 1 Tab Tablet 1 Tab PO PRN Q4HRS PRN 30 Days Aspirin Ec (Aspirin) 81 Mg Tablet.dr 81 Mg PO DAILYWBKFT 30 Days [Pantoprazole] 40 MG Tablet.dr 40 Mg PO DAILYAC 30 Days Humalog (Insulin Lispro) 100 Unit/1 Ml Insuln.pen 0 Units SQ TIDWMEALS 30 Days BG 150-199= 1 units 200-299= 2 units 300-399= 4 units 400-499= 6 units ac tid sliding scale Culturelle (Lactobacillus Rhamnosus Gg) 1 Each Cap.sprink 1 Cap PO BID 30 Days Tylenol (Acetaminophen) 325 Mg Tablet 325 Mg PO PRN Q4HRS PRN 30 Days Carvedilol (Carvedilol) 3.125 Mg Tablet 3.125 Mg PO BIDWMEALS 30 Days Renvela (Sevelamer Carbonate) 800 Mg Tablet 800 Mg PO TIDWMEALS 30 Days Pantoprazole Sodium 40 Mg Tablet.dr 40 Mg PO DAILYAC 30 Days Krista-Beatriz Tablet (Folic Acid/Vitamin B Comp W-C) 0.8 Mg Tablet 1 Tab PO DAILY 30 Days Reported Vitamin B-12 (Cyanocobalamin (Vitamin B-12)) 1,000 Mcg Tablet 1 Tab PO DAILY Allopurinol 100 Mg Tablet 1 Tab PO DAILY Renal Caps Softgel (Folic Acid/Vitamin B Comp W-C) 1 Mg Capsule 1 Cap PO DAILY Acidophilus Lactobacilli (Lactobacillus Acidophilus) 1 Each Capsule 1 Each PO BID Protonix (Pantoprazole Sodium) 20 Mg Tablet.dr 40 Mg PO DAILY Renvela (Sevelamer Carbonate) 800 Mg Tablet 800 Mg PO TIDWMEALS Lyrica (Pregabalin) 50 Mg Capsule 50 Mg PO HS Tylenol (Acetaminophen) 325 Mg Tablet 1 Tab PO PRN Q4HRS Hydrocodone-Apap 5-325 (Hydrocodone Bit/Acetaminophen) 1 Tab Tablet 1 Tab PO PRN Q4HRS PRN Aspirin 81 Mg Tab.chew 81 Mg PO DAILY Carvedilol (Carvedilol) 3.125 Mg Tablet 3.125 Mg PO BIDWMEALS Lipitor (Atorvastatin Calcium) 40 Mg Tablet 40 Mg PO HS Clopidogrel (Clopidogrel Bisulfate) 75 Mg Tablet 75 Mg PO DAILY Vitamin D (Cholecalciferol (Vitamin D3)) 2,000 Unit Capsule 1 Cap PO DAILY [place] 5-325 Tablet (Acetaminophen/Hydrocodone Bitart) 1 Each Tablet 1 Tab PO PRN Q4HRS PRN Lyrica (Pregabalin) 50 Mg Capsule 25 Mg PO HS Clopidogrel (Clopidogrel Bisulfate) 75 Mg Tablet 1 Tab PO DAILY Atorvastatin Calcium 40 Mg Tablet 40 Mg PO HS Allopurinol 100 Mg Tablet 1 Tab PO DAILY Vitamin B-12 (Cyanocobalamin (Vitamin B-12)) 1,000 Mcg Tablet 1 Tab PO DAILY Vitamin D-3 (Cholecalciferol (Vitamin D3)) 2,000 Unit Capsule 1,000 Unit PO DAILY Vitals/I & O Vital Sign - Last 24 Hours 12/04/18 12/04/18 12/04/18 12/04/18 10:19 11:19 11:49 15:51 Temp 99.3 99.1 99.3 99.1 Pulse 58 60 Resp 18 18 B/P (MAP) 114/96 (102) 136/30 (65) Pulse Ox 92 92 93 97 O2 Delivery Room Air Room Air Room Air Room Air O2 Flow Rate 3.0 3.0 12/04/18 12/04/18 12/04/18 12/04/18 17:02 19:25 19:26 22:35 Temp 97.7 98.7 97.7 98.7 Pulse 63 59 60 Resp 18 20 B/P (MAP) 103/40 (61) 121/65 (83) Pulse Ox 96 93 O2 Delivery Room Air Room Air Nasal Cannula O2 Flow Rate 2.0 12/05/18 12/05/18 12/05/18 12/05/18 02:50 06:50 08:10 08:25 Temp 98.1 98.1 98.1 98.1 98.1 98.1 98.1 98.1 Pulse 62 60 60 60 Resp 20 20 16 18 B/P (MAP) 111/59 (76) 95/55 90/52 96/55 Pulse Ox 97 95 98 100 O2 Delivery Nasal Cannula Room Air Simple Mask Simple Mask O2 Flow Rate 2.0 8 8 12/05/18 12/05/18 12/05/18 08:40 08:55 09:39 Temp 98.1 98.1 98.1 98.1 Pulse 60 60 Resp 18 18 20 B/P (MAP) 92/55 96/48 Pulse Ox 100 88 100 O2 Delivery Simple Mask Room Air Nasal Cannula O2 Flow Rate 8 3.0 Intake and Output 12/04/18 12/04/18 12/05/18 15:01 23:01 07:01 Intake Total 600 ml 250 ml 300 ml Balance 600 ml 250 ml 300 ml KIMI TIDWELL MD Dec 05, 2018 10:11
[2018-12-05] MEDS: FOLIC/VIT B COMP W-C (RENAL) TABLET. PO SCH (10:46)
[2018-12-05] MEDS: SEVELAMER CARBONATE 800 MG TABLET. PO SCH ×3 (10:46→17:30)
[2018-12-05] MEDS: HYDROcodone/APAP 5/325MG 1 TAB TABLET PO PRN ×3 (10:46→21:45)
[2018-12-05] MEDS: PANTOPRAZOLE 40 MG TABLET.DR. PO SCH (10:47)
[2018-12-05] MEDS: METOCLOPRAMIDE 5 MG TABLET. PO SCH ×4 (10:47→21:00)
[2018-12-05] MEDS: CYANOCOBALAMIN (VITAMIN B-12) 1,000 MCG TABLET. PO SCH (10:47)
[2018-12-05] MEDS: CHOLECALCIFEROL (VITAMIN D3) 1,000 UNIT TABLET PO SCH (10:47)
[2018-12-05] MEDS: CLOPIDOGREL BISULFATE 75 MG TABLET PO SCH (10:47)
[2018-12-05] MEDS: ONDANSETRON ODT 4 MG TAB.RAPDIS. PO SCH ×3 (10:47→17:30)
[2018-12-05] MEDS: LACTOBACILLUS RHAMNOSUS GG 1 CAPSULE. PO SCH ×2 (10:47→20:24)
[2018-12-05] MEDS: ASPIRIN CHEWABLE 81 MG TABLET. PO SCH (10:47)
[2018-12-05] MEDS: ALLOPURINOL 100 MG TABLET. PO SCH (10:47)
[2018-12-05] MEDS: INSULIN LISPRO 300 UNITS/3 ML INSULN.PEN. SQ SCH ×3 (10:58→17:30)
[2018-12-05] MEDS: IV NORMAL SALINE 500ML BAG 500 ML IV SCH ×2 (11:05→23:10)
--- NOTE | 2018-12-05 13:47 | PDOC ---
Subjective: Subjective: Right foot pain comes and goes. Tolerating PO w/o n/v. Diarrhea "off and on." Objective: Objective: 3 stools charted. Vital Signs: Vital Signs Date Time Temp Pulse Resp B/P (MAP) Pulse Ox O2 Delivery O2 Flow Rate FiO2 12/05/18 11:46 18 Nasal Cannula 3.0 12/05/18 10:09 100 12/05/18 09:40 98.1 60 100/52 98.1 Labs: Laboratory Tests Test 12/04/18 16:33 12/04/18 21:03 12/05/18 06:30 12/05/18 06:31 Glucose (Fingerstick) 130 mg/dL (70-99) 138 mg/dL (70-99) 61 mg/dL (70-99) 124 mg/dL (70-99) Test 12/05/18 09:15 12/05/18 11:33 Glucose (Fingerstick) 111 mg/dL (70-99) 194 mg/dL (70-99) PE: GEN: dialyzing LUNGS: NC ABD: non-tender EXTREMITY: RLE w/ boot NEURO/PSYCH: A & O �3 A/P: S/p right toe amputations 12/05/18 ESRD on HD Anemia - stable N/v - resolved, looks like getting scheduled Reglan and PPI -- Stable GI-taylor. KARLA WATT Dec 05, 2018 13:47
[2018-12-05] MEDS: NORMAL SALINE IV SCH (17:30)
[2018-12-05] MEDS: DAPTOMYCIN IV SCH (17:30)
[2018-12-05] MEDS: MEROPENEM 500 MG in IV NORMAL SALINE 50ML 50 ML IV SCH (17:30)
[2018-12-05 19:10] VITALS: BP 106/52
[2018-12-05] MEDS: ATORVASTATIN CALCIUM 40 MG TABLET. PO SCH (20:25)
[2018-12-05] MEDS: PREGABALIN 25 MG CAPSULE PO SCH (20:25)
[2018-12-05 23:35] VITALS: BP 111/57
[2018-12-06] MEDS: HYDROcodone/APAP 5/325MG 1 TAB TABLET PO PRN ×3 (03:14→19:53)
[2018-12-06 03:40] VITALS: BP 118/59
[2018-12-06 07:30] VITALS: BP 103/56
[2018-12-06] MEDS: CLOPIDOGREL BISULFATE 75 MG TABLET PO SCH (07:46)
[2018-12-06] MEDS: CHOLECALCIFEROL (VITAMIN D3) 1,000 UNIT TABLET PO SCH (07:46)
[2018-12-06] MEDS: ASPIRIN CHEWABLE 81 MG TABLET. PO SCH (07:46)
[2018-12-06] MEDS: PANTOPRAZOLE 40 MG TABLET.DR. PO SCH (07:46)
[2018-12-06] MEDS: CYANOCOBALAMIN (VITAMIN B-12) 1,000 MCG TABLET. PO SCH (07:46)
[2018-12-06] MEDS: FOLIC/VIT B COMP W-C (RENAL) TABLET. PO SCH (07:47)
[2018-12-06] MEDS: SEVELAMER CARBONATE 800 MG TABLET. PO SCH ×3 (07:47→17:13)
[2018-12-06] MEDS: LACTOBACILLUS RHAMNOSUS GG 1 CAPSULE. PO SCH ×2 (07:47→20:59)
[2018-12-06] MEDS: ONDANSETRON ODT 4 MG TAB.RAPDIS. PO SCH ×3 (07:47→17:14)
[2018-12-06] MEDS: METOCLOPRAMIDE 5 MG TABLET. PO SCH ×4 (07:47→20:59)
[2018-12-06] MEDS: CARVEDILOL 3.125 MG TABLET. PO SCH ×2 (07:50→17:17)
[2018-12-06] MEDS: COLLAGENASE 250 UNIT/GM TOPICAL OINTMENT 30GM TUBE. TP SCH (07:51)
[2018-12-06] MEDS: NYSTATIN TOPICAL POWDER 15GM BOTTLE. TP SCH ×2 (07:54→20:59)
--- NOTE | 2018-12-06 08:08 | PDOC ---
Infectious Disease Note Subjective Subjective Doing ok pain ok denies any n/v/d/abdo pain/rash or generalized aches awaiting placement Vital Sign Vital Signs Vital Signs Date Time Temp Pulse Resp B/P (MAP) Pulse Ox O2 Delivery O2 Flow Rate FiO2 12/06/18 07:50 59 103/56 12/06/18 07:30 98.5 20 96 Room Air 98.5 12/06/18 04:20 2.0 Physical Exam PHYSICAL EXAM GENERAL: NAD - in bed HEENT: Oral cavity clear NECK: Supple. LUNGS: Clear HEART: S1, S2 ABDOMEN: Soft, NT, BS present - obese EXTREMITIES: Trace edema; right foot with vac in place AV fistula NEUROLOGIC: Alert and oriented SKIN: No rash Right SCL (11/10) clean Labs Lab Laboratory Tests Test 12/05/18 09:15 12/05/18 11:33 12/05/18 18:00 Glucose (Fingerstick) 111 mg/dL (70-99) 194 mg/dL (70-99) 191 mg/dL (70-99) Objective Assessment Recent 1 st toe amp with developing gangrene, s/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 (h/o MSSA, Enterobacter and VRE). ESR 90 S/p Right first toe open ray amputation wound debridement with amputation of his second toe including excision of the metatarsal head and proximal and mid metatarsal bone 12/05. Right foot wound VAC dressing. Right lateral malleolus wound s/p sharp excisional debridement removing necrotic subcutaneous tissue, 11/02. -11/02. Enterobacter aerogenes, Cipro sensitive, VRE (linezolid & Dapto sensistive; PCN resistent) and Gram variable nuria not ID PAD s/p angio 11/03. ESRD/HD Diarrhea/loose stools. C. diff pending Thrombocytopenia - on Zyvox Plan Plan of Care Discharging to [facility] when can be arranged however have issues with cost of Daptomycin Zyvox causes issue with Thrombocytopenia so not an option Continue Dapto and meropenem for now Soc Service to check cost of Tigecycline as possible option though latter can cause nausea Give first dose here before transfer if approved by osh facility,give it slowly as it can cause nausea and gi upset Check CK/CBC/CMP in am When ready for dc home Every Wednesday CBC, ESR, CPK.LFT Fax results to [phone] f/u appt with us in 1-2 weeks f/u with vascular as directed HBO therapy - wound care team following D/W Daughter at bedside D/W RN D/w Dr. Byers 12/05 JAYY SUÁREZ MD Dec 06, 2018 08:08
[2018-12-06] MEDS: INSULIN LISPRO 300 UNITS/3 ML INSULN.PEN. SQ SCH ×3 (09:08→17:31)
--- NOTE | 2018-12-06 09:39 | PDOC ---
Subjective: Subjective: Denies nausea - has not eaten breakfast yet (tray not delivered yet) but doesn' t feel too hungry. "But I could eat." Denies abd pain and diarrhea. Objective: Vital Signs: Vital Signs Date Time Temp Pulse Resp B/P (MAP) Pulse Ox O2 Delivery O2 Flow Rate FiO2 12/06/18 08:00 Room Air 12/06/18 07:50 59 103/56 12/06/18 07:30 98.5 20 96 98.5 12/06/18 04:20 2.0 Labs: Laboratory Tests Test 12/05/18 11:33 12/05/18 18:00 Glucose (Fingerstick) 194 mg/dL 191 mg/dL PE: GEN: NAD LUNGS: clear HEART: RRR ABD: NABS, S/ND/NT NEURO/PSYCH: A & O �3, probably a little forgetful A/P: S/p right toe amputations N/v - resolved -- Stable GI-t[facility]. KARLA WATT Dec 06, 2018 09:39
[2018-12-06] MEDS: ALLOPURINOL 100 MG TABLET. PO SCH (09:40)
--- NOTE | 2018-12-06 10:15 | PDOC ---
PROGRESS NOTES Subjective Subjective feels better. ate breakfast well. no vomiting. Objective Objective Vital Signs Date Time Temp Pulse Resp B/P (MAP) Pulse Ox O2 Delivery O2 Flow Rate FiO2 12/06/18 09:43 96 Room Air 12/06/18 07:50 59 103/56 12/06/18 07:30 98.5 20 98.5 12/06/18 04:20 2.0 Intake and Output 12/06/18 07:01 Intake Total 994 ml Output Total 5 ml Balance 989 ml Intake Oral 794 ml IV Total 200 ml Estimated Blood Loss 5 ml # Bowel Movements 1 Physical Exam Abdomen: Soft, Other (obese) Heart: Normal S1, Normal S2 Extremities: Other (right foot dressing with wound vac) General: Alert HEENT: Atraumatic Lungs: Clear to auscultation Neuro: Normal speech Psych/Mental Status: Mental status NL Skin: No rashes Assessment Assessment necrotic right foot wound debridement of right first ray and amputation of 2nd toe and 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 suspect due to zyvox. will avoid heparin products nausea and vomiting resolved anemia of chronic disease Plan Plan of Care continue iv daptomycin and meropenem continue wound care and wound vac hemodialysis tomorrow transfer to snf soon if they accept iv daptomycin Comment Review of Relevant I have reviewed the following items simeon (where applicable) has been applied. Labs Laboratory Tests Test 12/04/18 11:12 12/04/18 16:33 12/04/18 21:03 12/05/18 06:30 Glucose (Fingerstick) 176 mg/dL (70-99) 130 mg/dL (70-99) 138 mg/dL (70-99) 61 mg/dL (70-99) Test 12/05/18 06:31 12/05/18 06:40 12/05/18 09:15 12/05/18 11:33 Glucose (Fingerstick) 124 mg/dL (70-99) 111 mg/dL (70-99) 194 mg/dL (70-99) White Blood Count 7.3 x10^3/uL (4.0-11.0) Red Blood Count 2.58 x10^6/uL (4.30-5.70) Hemoglobin 8.0 g/dL (13.0-17.5) Hematocrit 23.6 % (39.0-53.0) Mean Corpuscular Volume 91 fL (79-100) Mean Corpuscular Hemoglobin 31 pg (25-35) Mean Corpuscular Hemoglobin Concent 34 g/dL (31-37) Red Cell Distribution Width 17.5 % (11.5-14.5) Platelet Count 146 x10^3/uL (140-400) Neutrophils (%) (Auto) 65 % (31-73) Lymphocytes (%) (Auto) 18 % (24-48) Monocytes (%) (Auto) 11 % (0-9) Eosinophils (%) (Auto) 6 % (0-3) Basophils (%) (Auto) 0 % (0-3) Neutrophils # (Auto) 4.8 x10^3uL (1.8-7.7) Lymphocytes # (Auto) 1.3 x10^3/uL (1.0-4.8) Monocytes # (Auto) 0.8 x10^3/uL (0.0-1.1) Eosinophils # (Auto) 0.5 x10^3/uL (0.0-0.7) Basophils # (Auto) 0.0 x10^3/uL (0.0-0.2) Prothrombin Time 17.4 SEC (11.7-14.0) Prothromb Time International Ratio 1.5 (0.8-1.1) Sodium Level 139 mmol/L (136-145) Potassium Level 4.2 mmol/L (3.5-5.1) Chloride Level 101 mmol/L (98-107) Carbon Dioxide Level 31 mmol/L (21-32) Anion Gap 7 (6-14) Blood Urea Nitrogen 46 mg/dL (8-26) Creatinine 9.6 mg/dL (0.7-1.3) Estimated GFR (Cockcroft-Gault) 6.4 Glucose Level 128 mg/dL (70-99) Calcium Level 8.7 mg/dL (8.5-10.1) Test 12/05/18 18:00 Glucose (Fingerstick) 191 mg/dL (70-99) Laboratory Tests Test 12/05/18 11:33 1/7/19 18:00 Glucose (Fingerstick) 194 mg/dL (70-99) 191 mg/dL (70-99) Medications Current Medications Acetaminophen (Tylenol) 325 mg PRN Q4HRS PRN PO MILD PAIN / TEMP Last administered on 12/03/18 00:58; Start 11/24/18 at 20:30 Allopurinol (Zyloprim) 100 mg DAILY PO Last administered on 12/06/18 09:40; Start 11/25/18 at 09:00 Aspirin (Children'S Aspirin) 81 mg DAILY PO Last administered on 12/06/18 07:46 ; Start 11/25/18 at 09:00 Atorvastatin Calcium (Lipitor) 40 mg HS PO Last administered on 12/05/18 20:25 ; Start 11/24/18 at 21:00 Carvedilol (Coreg) 3.125 mg BIDWMEALS PO Last administered on 11/29/18 18:49; Start 11/24/18 at 21:00; Stop 11/30/18 at 10:19; Status DC Vitamin D (Vitamin D3) 1,000 unit DAILY PO Last administered on 12/06/18 07:46 ; Start 11/25/18 at 09:00 Clopidogrel Bisulfate (Plavix) 75 mg DAILY PO Last administered on 12/06/18 07: 46; Start 11/25/18 at 09:00 Cyanocobalamin (Vitamin B-12) 1,000 mcg DAILY PO Last administered on 12/06/18 07:46; Start 11/25/18 at 09:00 Acetaminophen/ Hydrocodone Bitart (Lortab 5/325) 1 tab PRN Q4HRS PRN PO MODERATE - SEVERE PAIN Last administered on 11/29/18 20:52; Start 11/24/18 at 20:30; Stop 11/30/18 at 11:04; Status DC Pregabalin (Lyrica) 50 mg HS PO Last administered on 11/30/18 20:18; Start at 21:00; Stop 12/01/18 at 12:12; Status DC Sevelamer Carbonate (Renvela) 800 mg TIDWMEALS PO Last administered on 07:47; Start 11/25/18 at 08:00 Vitamin B Complex/ Vitamin C (Krista-Beatriz) 1 tab DAILY PO Last administered on 07:47; Start 11/25/18 at 09:00 Lactobacillus Rhamnosus (Culturelle) 1 cap BID PO Last administered on 07:47; Start 11/24/18 at 21:00 Pantoprazole Sodium (Protonix) 40 mg DAILYAC PO Last administered on 12/06/18 07:46; Start 11/25/18 at 07:30 Insulin Human Lispro (HumaLOG) 0-5 UNITS TIDWMEALS SQ ; Start 11/24/18 at 21:00 ; Stop 11/24/18 at 21:57; Status DC Dextrose (Dextrose 50%-Water Syringe) 12.5 gm PRN Q15MIN PRN IV SEE COMMENTS; Start 11/24/18 at 20:45 Insulin Human Lispro (HumaLOG) 0-5 UNITS TIDWMEALS SQ ; Start 11/25/18 at 08:00 ; Stop 11/25/18 at 08:00; Status DC Insulin Human Lispro (HumaLOG) 0-5 UNITS BG 300-39... TIDWMEALS SQ Last administered on 12/06/18 09:08; Start 11/25/18 at 08:00 Collagenase (Santyl) 1 judi DAILY TP Last administered on 12/04/18 08:49; Start 11/25/18 at 10:00 Meropenem 500 mg/ Sodium Chloride 50 ml @ 100 mls/hr Q12HR IV ; Start at 21:00; Status UNV Daptomycin 690 mg/ Sodium Chloride 50 ml @ 100 mls/hr [id number]@1600 IV Last administered on 12/05/18 17:30; Start 11/25/18 at 16:00 Heparin Sodium (Porcine) (Heparin Sodium) 5,000 unit Q12HR SQ Last administered on 11/27/18at 20:28; Start 11/25/18 at 21:00; Stop 11/28/18 at 09 :44; Status DC Meropenem 500 mg/ Sodium Chloride 50 ml @ 100 mls/hr DAILY16 IV Last administered on 12/05/18 17:30; Start 11/25/18 at 16:00 Linezolid (Zyvox) 600 mg BID PO Last administered on 11/28/18at 08:48; Start 11/25/18 at 11:00; Stop 11/28/18 at 10:04; Status DC Info (PHARMACY MONITORING -- do not chart) 1 each PRN DAILY PRN MC SEE COMMENTS ; Start 11/25/18 at 10:45; Stop 11/28/18 at 17:07; Status DC Sodium Chloride 1,000 ml @ 1,000 mls/hr Q1H PRN IV hypotension; Start at 14:30; Stop 11/25/18 at 20:30; Status DC Sodium Chloride 1,000 ml @ 400 mls/hr Q2H30M PRN IV PATENCY; Start 11/25/18 at 14:30; Stop 11/25/18 at 20:30; Status DC Info (PHARMACY MONITORING -- do not chart) 1 each PRN DAILY PRN MC SEE COMMENTS ; Start 11/25/18 at 14:45; Status UNV Info (PHARMACY MONITORING -- do not chart) 1 each PRN DAILY PRN MC SEE COMMENTS ; Start 11/25/18 at 14:45; Status UNV Ondansetron HCl (Zofran Odt) 4 mg PRN Q6HRS PRN PO NAUSEA/VOMITING Last administered on 12/01/18at 07:30; Start 11/27/18 at 02:15 Magnesium Sulfate 50 ml @ 25 mls/hr PRN DAILY PRN IV for Mag < 1.7 on am labs; Start 11/27/18 at 14:00 Sodium Chloride 1,000 ml @ 1,000 mls/hr Q1H PRN IV hypotension; Start at 09:05; Stop 11/28/18 at 15:04; Status DC Albumin Human 200 ml @ 200 mls/hr 1X PRN PRN IV Hypotension; Start 11/28/18 at 09:15; Stop 11/28/18 at 15:14; Status DC Sodium Chloride 1,000 ml @ 400 mls/hr Q2H30M PRN IV PATENCY; Start 11/28/18 at 09:05; Stop 11/28/18 at 21:04; Status DC Info (PHARMACY MONITORING -- do not chart) 1 each PRN DAILY PRN MC SEE COMMENTS ; Start 11/28/18 at 09:15; Stop 11/28/18 at 17:07; Status DC Info (PHARMACY MONITORING -- do not chart) 1 each PRN DAILY PRN MC SEE COMMENTS ; Start 11/28/18 at 09:15; Stop 12/02/18 at 15:15; Status DC Sodium Chloride 1,000 ml @ 1,000 mls/hr Q1H PRN IV hypotension; Start 11/29/18 at 16:30; Stop 11/29/18 at 23:00; Status DC Info (PHARMACY MONITORING -- do not chart) 1 each PRN DAILY PRN MC SEE COMMENTS ; Start 11/29/18 at 16:45; Status UNV Info (PHARMACY MONITORING -- do not chart) 1 each PRN DAILY PRN MC SEE COMMENTS ; Start 11/29/18 at 16:45; Status UNV Info (PHARMACY MONITORING -- do not chart) 1 each PRN DAILY PRN MC SEE COMMENTS ; Start 11/30/18 at 08:30 Magnesium Sulfate 50 ml @ 25 mls/hr 1X ONCE IV Last administered on 11/30/18at 10:44; Start 11/30/18 at 10:00; Stop 11/30/18 at 11:59; Status DC Darbepoetin Reinaldo (Aranesp) 100 mcg WEEKLYHS SQ Last administered on 11/30/18at 20 :22; Start 11/30/18 at 21:00 Tramadol HCl (Ultram) 25 mg PRN Q6HRS PRN PO MODERATE PAIN Last administered on 11/30/18at 23:44; Start 11/30/18 at 11:00; Stop 12/01/18 at 12:12; Status DC Nystatin (Nystop) 1 judi BID TP Last administered on 12/06/18at 07:54; Start at 12:00 Sodium Chloride 1,000 ml @ 1,000 mls/hr Q1H PRN IV hypotension; Start 11/30/18 at 10:00; Stop 11/30/18 at 16:30; Status DC Albumin Human 200 ml @ 200 mls/hr 1X PRN PRN IV Hypotension; Start 11/30/18 at 10:00; Stop 11/30/18 at 16:30; Status DC Albumin Human 200 ml @ 100 mls/hr 1X ONCE IV Last administered on 11/30/18at 16 :45; Start 11/30/18 at 16:45; Stop 11/30/18 at 18:44; Status DC Albumin Human 500 ml @ 125 mls/hr Q4H IV Last administered on 12/01/18at 17:22; Start 12/01/18 at 12:00; Stop 12/01/18 at 19:59; Status DC Pregabalin (Lyrica) 25 mg HS PO Last administered on 12/05/18at 20:25; Start 12/01 at 21:00 Ondansetron HCl (Zofran Odt) 4 mg TIDAC PO Last administered on 12/06/18at 07:47 ; Start 12/01/18 at 16:30 Metoclopramide HCl (Reglan) 5 mg TIDACHC PO Last administered on 12/06/18at 07:47 ; Start 12/01/18 at 16:30 Acetaminophen/ Hydrocodone Bitart (Lortab 5/325) 0.5 tab PRN Q4HRS PRN PO MODERATE PAIN Last administered on 12/06/18at 09:43; Start 12/01/18 at 12:30 Sodium Chloride 1,000 ml @ 1,000 mls/hr Q1H PRN IV hypotension; Start 12/02/18 at 08:27; Stop 12/02/18 at 14:26; Status DC Albumin Human 200 ml @ 200 mls/hr 1X PRN PRN IV Hypotension; Start 12/02/18 at 08:30; Stop 12/02/18 at 14:29; Status DC Sodium Chloride 1,000 ml @ 400 mls/hr Q2H30M PRN IV PATENCY; Start 12/02/18 at 08:27; Stop 12/02/18 at 20:26; Status DC Info (PHARMACY MONITORING -- do not chart) 1 each PRN DAILY PRN MC SEE COMMENTS ; Start 12/02/18 at 08:30; Status UNV Info (PHARMACY MONITORING -- do not chart) 1 each PRN DAILY PRN MC SEE COMMENTS ; Start 12/02/18 at 08:30; Status UNV Ondansetron HCl (Zofran) 4 mg PRN Q6HRS PRN IV NAUSEA/VOMITING; Start 12/05/18 at 07:00; Stop 12/06/18 at 06:59; Status DC Morphine Sulfate (Morphine Sulfate) 1 mg PRN Q10MIN PRN IV SEVERE PAIN Last administered on 12/05/18at 09:39; Start 12/05/18 at 07:00; Stop 12/05/18 at 18:00; Status DC Ringer's Solution 1,000 ml @ 30 mls/hr Q24H IV ; Start 12/05/18 at 07:00; Stop 12/05/18 at 18:59; Status DC Lidocaine HCl (Xylocaine-Mpf 1% 2ml Vial) 2 ml PRN 1X PRN ID PRIOR TO IV START ; Start 12/05/18 at 07:00; Stop 12/05/18 at 07:01; Status DC Hydromorphone HCl (Dilaudid) 0.5 mg PRN Q10MIN PRN IV SEV PAIN, Second choice; Start 12/05/18 at 07:00; Stop 12/06/18 at 06:59; Status DC Carvedilol (Coreg) 3.125 mg BIDWMEALS PO Last administered on 12/06/18at 07:50; Start 12/03/18 at 08:00 Sodium Chloride 500 ml @ 30 mls/hr [id number] IV Last administered on 12/05/18at 11 :05; Start 12/05/18 at 06:30; Stop 12/06/18 at 06:29; Status DC Cefazolin Sodium 1 gm/Sodium Chloride 500 ml @ 500 mls/hr 1X ONCE IRR Last administered on 12/05/18at 07:45; Start 12/05/18 at 08:00; Stop 12/05/18 at 08:59; Status DC Sevoflurane (Ultane) 30 ml STK-MED ONCE IH ; Start 12/05/18 at 07:15; Stop at 07:16; Status DC Fentanyl Citrate (Fentanyl 2ml Vial) 100 mcg STK-MED ONCE .ROUTE ; Start at 07:15; Stop 12/05/18 at 07:17; Status DC Propofol 20 ml @ As Directed STK-MED ONCE IV ; Start 12/05/18 at 07:15; Stop 12/05 at 07:17; Status DC Lidocaine HCl (Lidocaine Pf 2% Vial) 5 ml STK-MED ONCE .ROUTE ; Start 12/05/18 at 07:15; Stop 12/05/18 at 07:17; Status DC Dexamethasone Sodium Phosphate (Decadron) 20 mg STK-MED ONCE .ROUTE ; Start 12/05 at 07:15; Stop 12/05/18 at 07:17; Status DC Ondansetron HCl (Zofran) 4 mg STK-MED ONCE .ROUTE ; Start 12/05/18 at 07:15; Stop 12/05/18 at 07:17; Status DC Lidocaine HCl 20 ml STK-MED ONCE .ROUTE ; Start 12/05/18 at 07:33; Stop 12/05/18 at 07:34; Status DC Cellulose (Surgicel Fibrillar 1x2) 1 each STK-MED ONCE .ROUTE ; Start 12/05/18 at 07:33; Stop 12/05/18 at 07:34; Status DC Phenylephrine HCl (PHENYLEPHRINE in 0.9% NACL PF) 1 mg STK-MED ONCE IV ; Start 12/05/18 at 07:56; Stop 12/05/18 at 07:58; Status DC Sodium Chloride 1,000 ml @ 1,000 mls/hr Q1H PRN IV hypotension; Start 12/05/18 at 08:31; Stop 12/05/18 at 14:30; Status DC Albumin Human 200 ml @ 200 mls/hr 1X PRN PRN IV Hypotension; Start 12/05/18 at 08:45; Stop 12/05/18 at 14:44; Status DC Sodium Chloride 1,000 ml @ 400 mls/hr Q2H30M PRN IV PATENCY Last administered on 12/05/18at 11:04; Start 12/05/18 at 08:31; Stop 12/05/18 at 20:30; Status DC Info (PHARMACY MONITORING -- do not chart) 1 each PRN DAILY PRN MC SEE COMMENTS ; Start 12/05/18 at 08:45; Status UNV Info (PHARMACY MONITORING -- do not chart) 1 each PRN DAILY PRN MC SEE COMMENTS ; Start 12/05/18 at 08:45; Status Cancel Morphine Sulfate (Morphine Sulfate) 4 mg STK-MED ONCE .ROUTE ; Start 12/05/18 at 09:35; Stop 12/05/18 at 09:37; Status DC Active Scripts Active Zofran (Ondansetron Hcl) 4 Mg Tablet 1 Tab PO Q6HRS Zyvox (Linezolid) 600 Mg Tablet 600 Mg PO BID 30 Days Hydrocodone-Apap 5-325 (Hydrocodone Bit/Acetaminophen) 1 Tab Tablet 1 Tab PO PRN Q4HRS PRN 30 Days Aspirin Ec (Aspirin) 81 Mg Tablet.dr 81 Mg PO DAILYWBKFT 30 Days [Pantoprazole] 40 MG Tablet.dr 40 Mg PO DAILYAC 30 Days Humalog (Insulin Lispro) 100 Unit/1 Ml Insuln.pen 0 Units SQ TIDWMEALS 30 Days BG 150-199= 1 units 200-299= 2 units 300-399= 4 units 400-499= 6 units ac tid sliding scale Culturelle (Lactobacillus Rhamnosus Gg) 1 Each Cap.sprink 1 Cap PO BID 30 Days Tylenol (Acetaminophen) 325 Mg Tablet 325 Mg PO PRN Q4HRS PRN 30 Days Carvedilol (Carvedilol) 3.125 Mg Tablet 3.125 Mg PO BIDWMEALS 30 Days Renvela (Sevelamer Carbonate) 800 Mg Tablet 800 Mg PO TIDWMEALS 30 Days Pantoprazole Sodium 40 Mg Tablet.dr 40 Mg PO DAILYAC 30 Days Krista-Beatriz Tablet (Folic Acid/Vitamin B Comp W-C) 0.8 Mg Tablet 1 Tab PO DAILY 30 Days Reported Vitamin B-12 (Cyanocobalamin (Vitamin B-12)) 1,000 Mcg Tablet 1 Tab PO DAILY Allopurinol 100 Mg Tablet 1 Tab PO DAILY Renal Caps Softgel (Folic Acid/Vitamin B Comp W-C) 1 Mg Capsule 1 Cap PO DAILY Acidophilus Lactobacilli (Lactobacillus Acidophilus) 1 Each Capsule 1 Each PO BID Protonix (Pantoprazole Sodium) 20 Mg Tablet.dr 40 Mg PO DAILY Renvela (Sevelamer Carbonate) 800 Mg Tablet 800 Mg PO TIDWMEALS Lyrica (Pregabalin) 50 Mg Capsule 50 Mg PO HS Tylenol (Acetaminophen) 325 Mg Tablet 1 Tab PO PRN Q4HRS Hydrocodone-Apap 5-325 (Hydrocodone Bit/Acetaminophen) 1 Tab Tablet 1 Tab PO PRN Q4HRS PRN Aspirin 81 Mg Tab.chew 81 Mg PO DAILY Carvedilol (Carvedilol) 3.125 Mg Tablet 3.125 Mg PO BIDWMEALS Lipitor (Atorvastatin Calcium) 40 Mg Tablet 40 Mg PO HS Clopidogrel (Clopidogrel Bisulfate) 75 Mg Tablet 75 Mg PO DAILY Vitamin D (Cholecalciferol (Vitamin D3)) 2,000 Unit Capsule 1 Cap PO DAILY [place] 5-325 Tablet (Acetaminophen/Hydrocodone Bitart) 1 Each Tablet 1 Tab PO PRN Q4HRS PRN Lyrica (Pregabalin) 50 Mg Capsule 25 Mg PO HS Clopidogrel (Clopidogrel Bisulfate) 75 Mg Tablet 1 Tab PO DAILY Atorvastatin Calcium 40 Mg Tablet 40 Mg PO HS Allopurinol 100 Mg Tablet 1 Tab PO DAILY Vitamin B-12 (Cyanocobalamin (Vitamin B-12)) 1,000 Mcg Tablet 1 Tab PO DAILY Vitamin D-3 (Cholecalciferol (Vitamin D3)) 2,000 Unit Capsule 1,000 Unit PO DAILY Vitals/I & O Vital Sign - Last 24 Hours 12/05/18 12/05/18 12/05/18 12/05/18 10:46 14:59 17:00 19:10 Temp 98.5 98.5 Pulse 60 59 Resp 18 18 20 B/P (MAP) 100/52 106/52 (70) Pulse Ox 94 O2 Delivery Nasal Cannula Nasal Cannula Room Air O2 Flow Rate 3.0 3.0 12/05/18 12/05/18 12/05/18 12/06/18 20:00 21:45 23:35 03:14 Temp 98.3 98.3 Pulse 66 Resp 18 18 18 B/P (MAP) 111/57 (75) Pulse Ox 94 97 97 O2 Delivery Room Air Nasal Cannula Room Air Room Air O2 Flow Rate 3.0 3.0 12/06/18 12/06/18 12/06/18 12/06/18 03:40 04:20 07:30 07:50 Temp 99.0 98.5 99.0 98.5 Pulse 63 59 59 Resp 20 20 20 B/P (MAP) 118/59 (78) 103/56 (72) 103/56 Pulse Ox 99 99 96 O2 Delivery Nasal Cannula Room Air Room Air O2 Flow Rate 2.0 2.0 12/06/18 12/06/18 08:00 09:43 Pulse Ox 96 O2 Delivery Room Air Room Air Intake and Output 12/05/18 12/05/18 12/06/18 15:01 23:01 07:01 Intake Total 624 ml 50 ml 320 ml Output Total 5 ml Balance 619 ml 50 ml 320 ml KIMI TIDWELL MD Dec 06, 2018 10:15
--- NOTE | 2018-12-06 10:54 | PDOC ---
Renal-Progress Notes Subjective Notes Notes NO NEW COMPLAINTS History of Present Illness Hx of present illness STABLE Vitals Vitals Vital Signs Date Time Temp Pulse Resp B/P (MAP) Pulse Ox O2 Delivery O2 Flow Rate FiO2 12/06/18 10:49 96 Room Air 12/06/18 07:50 59 103/56 12/06/18 07:30 98.5 20 98.5 12/06/18 04:20 2.0 Weight Weight [ ] I.O. Intake and Output Intake and Output 12/06/18 07:01 Intake Total 994 ml Output Total 5 ml Balance 989 ml Intake Oral 794 ml IV Total 200 ml Estimated Blood Loss 5 ml # Bowel Movements 1 Labs Labs Laboratory Tests Test 12/05/18 11:33 12/05/18 18:00 Glucose (Fingerstick) 194 mg/dL (70-99) 191 mg/dL (70-99) Review of Systems Constitutional: yes: alert, oriented Ears/Nose/Throat: Yes: no symptom reported Eyes: Yes: no symptom reported Pulmonary: Yes no symptom reported Cardiovascular: Yes no symptom reported Gastrointestional: Yes: no symptom reported Genitourinary: Yes: no symptom reported Musculoskeletal: Yes: no symptom reported Skin: Yes no symptom reported Psychiatric/Neurological: Yes: no symptom reported Endocrine: Yes: no symptom reported Physical Exam General Appearance: no apparent distress Skin: warm Respiratory: bilateral CTA Heart: S1S2, RRR Abdomen: soft Genitourinary: no mass Extremities: pulses present Assessment Assessment IMP ESRD DM II ANEMIA HTN RIGHT TOE WOUND-S/P AMP PLAN HD TOMORROW CONT BELLA CHAITANYA HILARIO MD Dec 06, 2018 10:54
--- NOTE | 2018-12-06 10:57 | PDOC ---
PROGRESS NOTES Subjective Subjective "It hurts from time to time but it comes and goes." Objective Objective Vascular Surgery - POD#4 Right 2nd toe amputation O: Seen while on hemodialysis. Fell asleep during exam. Right Foot: Dressing removed. Small dime-sized spot of blood on dressing. 2nd toe amp site with stitches. Faint hue of dusky incision edges. Slight superficial separation noted mid-incision. No active drainage. Plan: 1. Continue to monitor incisional healing. 2. Removal of excess fluid will help wound healing as swelling pulls on incision. 3. Continue daily dressing changes. Vital Signs Date Time Temp Pulse Resp B/P (MAP) Pulse Ox O2 Delivery O2 Flow Rate FiO2 12/06/18 10:49 96 Room Air 12/06/18 07:50 59 103/56 12/06/18 07:30 98.5 20 98.5 12/06/18 04:20 2.0 Intake and Output 12/06/18 07:01 Intake Total 994 ml Output Total 5 ml Balance 989 ml Intake Oral 794 ml IV Total 200 ml Estimated Blood Loss 5 ml # Bowel Movements 1 Comment Review of Relevant I have reviewed the following items simeon (where applicable) has been applied. Labs Laboratory Tests Test 12/04/18 11:12 12/04/18 16:33 12/04/18 21:03 12/05/18 06:30 Glucose (Fingerstick) 176 mg/dL (70-99) 130 mg/dL (70-99) 138 mg/dL (70-99) 61 mg/dL (70-99) Test 12/05/18 06:31 12/05/18 06:40 12/05/18 09:15 12/05/18 11:33 Glucose (Fingerstick) 124 mg/dL (70-99) 111 mg/dL (70-99) 194 mg/dL (70-99) White Blood Count 7.3 x10^3/uL (4.0-11.0) Red Blood Count 2.58 x10^6/uL (4.30-5.70) Hemoglobin 8.0 g/dL (13.0-17.5) Hematocrit 23.6 % (39.0-53.0) Mean Corpuscular Volume 91 fL (79-100) Mean Corpuscular Hemoglobin 31 pg (25-35) Mean Corpuscular Hemoglobin Concent 34 g/dL (31-37) Red Cell Distribution Width 17.5 % (11.5-14.5) Platelet Count 146 x10^3/uL (140-400) Neutrophils (%) (Auto) 65 % (31-73) Lymphocytes (%) (Auto) 18 % (24-48) Monocytes (%) (Auto) 11 % (0-9) Eosinophils (%) (Auto) 6 % (0-3) Basophils (%) (Auto) 0 % (0-3) Neutrophils # (Auto) 4.8 x10^3uL (1.8-7.7) Lymphocytes # (Auto) 1.3 x10^3/uL (1.0-4.8) Monocytes # (Auto) 0.8 x10^3/uL (0.0-1.1) Eosinophils # (Auto) 0.5 x10^3/uL (0.0-0.7) Basophils # (Auto) 0.0 x10^3/uL (0.0-0.2) Prothrombin Time 17.4 SEC (11.7-14.0) Prothromb Time International Ratio 1.5 (0.8-1.1) Sodium Level 139 mmol/L (136-145) Potassium Level 4.2 mmol/L (3.5-5.1) Chloride Level 101 mmol/L (98-107) Carbon Dioxide Level 31 mmol/L (21-32) Anion Gap 7 (6-14) Blood Urea Nitrogen 46 mg/dL (8-26) Creatinine 9.6 mg/dL (0.7-1.3) Estimated GFR (Cockcroft-Gault) 6.4 Glucose Level 128 mg/dL (70-99) Calcium Level 8.7 mg/dL (8.5-10.1) Test 12/05/18 18:00 Glucose (Fingerstick) 191 mg/dL (70-99) Laboratory Tests Test 12/05/18 11:33 12/05/18 18:00 Glucose (Fingerstick) 194 mg/dL (70-99) 191 mg/dL (70-99) Medications Current Medications Acetaminophen (Tylenol) 325 mg PRN Q4HRS PRN PO MILD PAIN / TEMP Last administered on 12/03/18at 00:58; Start 11/24/18 at 20:30 Allopurinol (Zyloprim) 100 mg DAILY PO Last administered on 12/06/18 09:40; Start 11/25/18 at 09:00 Aspirin (Children'S Aspirin) 81 mg DAILY PO Last administered on 12/06/18 07:46 ; Start 11/25/18 at 09:00 Atorvastatin Calcium (Lipitor) 40 mg HS PO Last administered on 12/05/18 20:25 ; Start 11/24/18 at 21:00 Carvedilol (Coreg) 3.125 mg BIDWMEALS PO Last administered on 11/29/18 18:49; Start 11/24/18 at 21:00; Stop 11/30/18 at 10:19; Status DC Vitamin D (Vitamin D3) 1,000 unit DAILY PO Last administered on 12/06/18 07:46 ; Start 11/25/18 at 09:00 Clopidogrel Bisulfate (Plavix) 75 mg DAILY PO Last administered on 12/06/18 07: 46; Start 11/25/18 at 09:00 Cyanocobalamin (Vitamin B-12) 1,000 mcg DAILY PO Last administered on 12/06/18 07:46; Start 11/25/18 at 09:00 Acetaminophen/ Hydrocodone Bitart (Lortab 5/325) 1 tab PRN Q4HRS PRN PO MODERATE - SEVERE PAIN Last administered on 11/29/18 20:52; Start 11/24/18 at 20:30; Stop 11/30/18 at 11:04; Status DC Pregabalin (Lyrica) 50 mg HS PO Last administered on 11/30/18 20:18; Start at 21:00; Stop 12/01/18 at 12:12; Status DC Sevelamer Carbonate (Renvela) 800 mg TIDWMEALS PO Last administered on 07:47; Start 11/25/18 at 08:00 Vitamin B Complex/ Vitamin C (Krista-Beatriz) 1 tab DAILY PO Last administered on 07:47; Start 11/25/18 at 09:00 Lactobacillus Rhamnosus (Culturelle) 1 cap BID PO Last administered on 07:47; Start 11/24/18 at 21:00 Pantoprazole Sodium (Protonix) 40 mg DAILYAC PO Last administered on 12/06/18 07:46; Start 11/25/18 at 07:30 Insulin Human Lispro (HumaLOG) 0-5 UNITS TIDWMEALS SQ ; Start 11/24/18 at 21:00 ; Stop 11/24/18 at 21:57; Status DC Dextrose (Dextrose 50%-Water Syringe) 12.5 gm PRN Q15MIN PRN IV SEE COMMENTS; Start 11/24/18 at 20:45 Insulin Human Lispro (HumaLOG) 0-5 UNITS TIDWMEALS SQ ; Start 11/25/18 at 08:00 ; Stop 11/25/18 at 08:00; Status DC Insulin Human Lispro (HumaLOG) 0-5 UNITS BG 300-39... TIDWMEALS SQ Last administered on 12/06/18 09:08; Start 11/25/18 at 08:00 Collagenase (Santyl) 1 judi DAILY TP Last administered on 12/04/18 08:49; Start 11/25/18 at 10:00 Meropenem 500 mg/ Sodium Chloride 50 ml @ 100 mls/hr Q12HR IV ; Start at 21:00; Status UNV Daptomycin 690 mg/ Sodium Chloride 50 ml @ 100 mls/hr [id number]@1600 IV Last administered on 12/05/18 17:30; Start 11/25/18 at 16:00 Heparin Sodium (Porcine) (Heparin Sodium) 5,000 unit Q12HR SQ Last administered on 11/27/18at 20:28; Start 11/25/18 at 21:00; Stop 11/28/18 at 09 :44; Status DC Meropenem 500 mg/ Sodium Chloride 50 ml @ 100 mls/hr DAILY16 IV Last administered on 12/05/18 17:30; Start 11/25/18 at 16:00 Linezolid (Zyvox) 600 mg BID PO Last administered on 11/28/18at 08:48; Start 11/25/18 at 11:00; Stop 11/28/18 at 10:04; Status DC Info (PHARMACY MONITORING -- do not chart) 1 each PRN DAILY PRN MC SEE COMMENTS ; Start 11/25/18 at 10:45; Stop 11/28/18 at 17:07; Status DC Sodium Chloride 1,000 ml @ 1,000 mls/hr Q1H PRN IV hypotension; Start at 14:30; Stop 11/25/18 at 20:30; Status DC Sodium Chloride 1,000 ml @ 400 mls/hr Q2H30M PRN IV PATENCY; Start 11/25/18 at 14:30; Stop 11/25/18 at 20:30; Status DC Info (PHARMACY MONITORING -- do not chart) 1 each PRN DAILY PRN MC SEE COMMENTS ; Start 11/25/18 at 14:45; Status UNV Info (PHARMACY MONITORING -- do not chart) 1 each PRN DAILY PRN MC SEE COMMENTS ; Start 11/25/18 at 14:45; Status UNV Ondansetron HCl (Zofran Odt) 4 mg PRN Q6HRS PRN PO NAUSEA/VOMITING Last administered on 12/01/18at 07:30; Start 11/27/18 at 02:15 Magnesium Sulfate 50 ml @ 25 mls/hr PRN DAILY PRN IV for Mag < 1.7 on am labs; Start 11/27/18 at 14:00 Sodium Chloride 1,000 ml @ 1,000 mls/hr Q1H PRN IV hypotension; Start at 09:05; Stop 11/28/18 at 15:04; Status DC Albumin Human 200 ml @ 200 mls/hr 1X PRN PRN IV Hypotension; Start 11/28/18 at 09:15; Stop 11/28/18 at 15:14; Status DC Sodium Chloride 1,000 ml @ 400 mls/hr Q2H30M PRN IV PATENCY; Start 11/28/18 at 09:05; Stop 11/28/18 at 21:04; Status DC Info (PHARMACY MONITORING -- do not chart) 1 each PRN DAILY PRN MC SEE COMMENTS ; Start 11/28/18 at 09:15; Stop 11/28/18 at 17:07; Status DC Info (PHARMACY MONITORING -- do not chart) 1 each PRN DAILY PRN MC SEE COMMENTS ; Start 11/28/18 at 09:15; Stop 12/02/18 at 15:15; Status DC Sodium Chloride 1,000 ml @ 1,000 mls/hr Q1H PRN IV hypotension; Start 11/29/18 at 16:30; Stop 11/29/18 at 23:00; Status DC Info (PHARMACY MONITORING -- do not chart) 1 each PRN DAILY PRN MC SEE COMMENTS ; Start 11/29/18 at 16:45; Status UNV Info (PHARMACY MONITORING -- do not chart) 1 each PRN DAILY PRN MC SEE COMMENTS ; Start 11/29/18 at 16:45; Status UNV Info (PHARMACY MONITORING -- do not chart) 1 each PRN DAILY PRN MC SEE COMMENTS ; Start 11/30/18 at 08:30 Magnesium Sulfate 50 ml @ 25 mls/hr 1X ONCE IV Last administered on 11/30/18at 10:44; Start 11/30/18 at 10:00; Stop 11/30/18 at 11:59; Status DC Darbepoetin Reianldo (Aranesp) 100 mcg WEEKLYHS SQ Last administered on 11/30/18at 20 :22; Start 11/30/18 at 21:00 Tramadol HCl (Ultram) 25 mg PRN Q6HRS PRN PO MODERATE PAIN Last administered on 11/30/18at 23:44; Start 11/30/18 at 11:00; Stop 12/01/18 at 12:12; Status DC Nystatin (Nystop) 1 judi BID TP Last administered on 12/06/18at 07:54; Start at 12:00 Sodium Chloride 1,000 ml @ 1,000 mls/hr Q1H PRN IV hypotension; Start 11/30/18 at 10:00; Stop 11/30/18 at 16:30; Status DC Albumin Human 200 ml @ 200 mls/hr 1X PRN PRN IV Hypotension; Start 11/30/18 at 10:00; Stop 11/30/18 at 16:30; Status DC Albumin Human 200 ml @ 100 mls/hr 1X ONCE IV Last administered on 11/30/18at 16 :45; Start 11/30/18 at 16:45; Stop 11/30/18 at 18:44; Status DC Albumin Human 500 ml @ 125 mls/hr Q4H IV Last administered on 12/01/18at 17:22; Start 12/01/18 at 12:00; Stop 12/01/18 at 19:59; Status DC Pregabalin (Lyrica) 25 mg HS PO Last administered on 12/05/18at 20:25; Start 12/01 at 21:00 Ondansetron HCl (Zofran Odt) 4 mg TIDAC PO Last administered on 12/06/18 07:47 ; Start 12/01/18 at 16:30 Metoclopramide HCl (Reglan) 5 mg TIDACHC PO Last administered on 12/06/18 07:47 ; Start 12/01/18 at 16:30 Acetaminophen/ Hydrocodone Bitart (Lortab 5/325) 0.5 tab PRN Q4HRS PRN PO MODERATE PAIN Last administered on 12/06/18 09:43; Start 12/01/18 at 12:30 Sodium Chloride 1,000 ml @ 1,000 mls/hr Q1H PRN IV hypotension; Start 12/02/18 at 08:27; Stop 12/02/18 at 14:26; Status DC Albumin Human 200 ml @ 200 mls/hr 1X PRN PRN IV Hypotension; Start 12/02/18 at 08:30; Stop 12/02/18 at 14:29; Status DC Sodium Chloride 1,000 ml @ 400 mls/hr Q2H30M PRN IV PATENCY; Start 12/02/18 at 08:27; Stop 12/02/18 at 20:26; Status DC Info (PHARMACY MONITORING -- do not chart) 1 each PRN DAILY PRN MC SEE COMMENTS ; Start 12/02/18 at 08:30; Status UNV Info (PHARMACY MONITORING -- do not chart) 1 each PRN DAILY PRN MC SEE COMMENTS ; Start 12/02/18 at 08:30; Status UNV Ondansetron HCl (Zofran) 4 mg PRN Q6HRS PRN IV NAUSEA/VOMITING; Start 12/05/18 at 07:00; Stop 12/06/18 at 06:59; Status DC Morphine Sulfate (Morphine Sulfate) 1 mg PRN Q10MIN PRN IV SEVERE PAIN Last administered on 12/05/18at 09:39; Start 12/05/18 at 07:00; Stop 12/05/18 at 18:00; Status DC Ringer's Solution 1,000 ml @ 30 mls/hr Q24H IV ; Start 12/05/18 at 07:00; Stop 12/05/18 at 18:59; Status DC Lidocaine HCl (Xylocaine-Mpf 1% 2ml Vial) 2 ml PRN 1X PRN ID PRIOR TO IV START ; Start 12/05/18 at 07:00; Stop 12/05/18 at 07:01; Status DC Hydromorphone HCl (Dilaudid) 0.5 mg PRN Q10MIN PRN IV SEV PAIN, Second choice; Start 12/05/18 at 07:00; Stop 12/06/18 at 06:59; Status DC Carvedilol (Coreg) 3.125 mg BIDWMEALS PO Last administered on 12/06/18at 07:50; Start 12/03/18 at 08:00 Sodium Chloride 500 ml @ 30 mls/hr [id number] IV Last administered on 12/05/18at 11 :05; Start 12/05/18 at 06:30; Stop 12/06/18 at 06:29; Status DC Cefazolin Sodium 1 gm/Sodium Chloride 500 ml @ 500 mls/hr 1X ONCE IRR Last administered on 12/05/18at 07:45; Start 12/05/18 at 08:00; Stop 12/05/18 at 08:59; Status DC Sevoflurane (Ultane) 30 ml STK-MED ONCE IH ; Start 12/05/18 at 07:15; Stop at 07:16; Status DC Fentanyl Citrate (Fentanyl 2ml Vial) 100 mcg STK-MED ONCE .ROUTE ; Start at 07:15; Stop 12/05/18 at 07:17; Status DC Propofol 20 ml @ As Directed STK-MED ONCE IV ; Start 12/05/18 at 07:15; Stop 12/05 at 07:17; Status DC Lidocaine HCl (Lidocaine Pf 2% Vial) 5 ml STK-MED ONCE .ROUTE ; Start 12/05/18 at 07:15; Stop 12/05/18 at 07:17; Status DC Dexamethasone Sodium Phosphate (Decadron) 20 mg STK-MED ONCE .ROUTE ; Start 12/05 at 07:15; Stop 12/05/18 at 07:17; Status DC Ondansetron HCl (Zofran) 4 mg STK-MED ONCE .ROUTE ; Start 12/05/18 at 07:15; Stop 12/05/18 at 07:17; Status DC Lidocaine HCl 20 ml STK-MED ONCE .ROUTE ; Start 12/05/18 at 07:33; Stop 12/05/18 at 07:34; Status DC Cellulose (Surgicel Fibrillar 1x2) 1 each STK-MED ONCE .ROUTE ; Start 12/05/18 at 07:33; Stop 12/05/18 at 07:34; Status DC Phenylephrine HCl (PHENYLEPHRINE in 0.9% NACL PF) 1 mg STK-MED ONCE IV ; Start 12/05/18 at 07:56; Stop 12/05/18 at 07:58; Status DC Sodium Chloride 1,000 ml @ 1,000 mls/hr Q1H PRN IV hypotension; Start 12/05/18 at 08:31; Stop 12/05/18 at 14:30; Status DC Albumin Human 200 ml @ 200 mls/hr 1X PRN PRN IV Hypotension; Start 12/05/18 at 08:45; Stop 12/05/18 at 14:44; Status DC Sodium Chloride 1,000 ml @ 400 mls/hr Q2H30M PRN IV PATENCY Last administered on 12/05/18at 11:04; Start 12/05/18 at 08:31; Stop 12/05/18 at 20:30; Status DC Info (PHARMACY MONITORING -- do not chart) 1 each PRN DAILY PRN MC SEE COMMENTS ; Start 12/05/18 at 08:45; Status UNV Info (PHARMACY MONITORING -- do not chart) 1 each PRN DAILY PRN MC SEE COMMENTS ; Start 12/05/18 at 08:45; Status Cancel Morphine Sulfate (Morphine Sulfate) 4 mg STK-MED ONCE .ROUTE ; Start 12/05/18 at 09:35; Stop 12/05/18 at 09:37; Status DC Active Scripts Active Zofran (Ondansetron Hcl) 4 Mg Tablet 1 Tab PO Q6HRS Zyvox (Linezolid) 600 Mg Tablet 600 Mg PO BID 30 Days Hydrocodone-Apap 5-325 (Hydrocodone Bit/Acetaminophen) 1 Tab Tablet 1 Tab PO PRN Q4HRS PRN 30 Days Aspirin Ec (Aspirin) 81 Mg Tablet. 81 Mg PO [id number] 30 Days [Pantoprazole] 40 MG Tablet.dr 40 Mg PO DAILYAC 30 Days Humalog (Insulin Lispro) 100 Unit/1 Ml Insuln.pen 0 Units SQ TIDWMEALS 30 Days BG 150-199= 1 units 200-299= 2 units 300-399= 4 units 400-499= 6 units ac tid sliding scale Culturelle (Lactobacillus Rhamnosus Gg) 1 Each Cap.sprink 1 Cap PO BID 30 Days Tylenol (Acetaminophen) 325 Mg Tablet 325 Mg PO PRN Q4HRS PRN 30 Days Carvedilol (Carvedilol) 3.125 Mg Tablet 3.125 Mg PO BIDWMEALS 30 Days Renvela (Sevelamer Carbonate) 800 Mg Tablet 800 Mg PO TIDWMEALS 30 Days Pantoprazole Sodium 40 Mg Tablet.dr 40 Mg PO DAILYAC 30 Days Krista-Beatriz Tablet (Folic Acid/Vitamin B Comp W-C) 0.8 Mg Tablet 1 Tab PO DAILY 30 Days Reported Vitamin B-12 (Cyanocobalamin (Vitamin B-12)) 1,000 Mcg Tablet 1 Tab PO DAILY Allopurinol 100 Mg Tablet 1 Tab PO DAILY Renal Caps Softgel (Folic Acid/Vitamin B Comp W-C) 1 Mg Capsule 1 Cap PO DAILY Acidophilus Lactobacilli (Lactobacillus Acidophilus) 1 Each Capsule 1 Each PO BID Protonix (Pantoprazole Sodium) 20 Mg Tablet.dr 40 Mg PO DAILY Renvela (Sevelamer Carbonate) 800 Mg Tablet 800 Mg PO TIDWMEALS Lyrica (Pregabalin) 50 Mg Capsule 50 Mg PO HS Tylenol (Acetaminophen) 325 Mg Tablet 1 Tab PO PRN Q4HRS Hydrocodone-Apap 5-325 (Hydrocodone Bit/Acetaminophen) 1 Tab Tablet 1 Tab PO PRN Q4HRS PRN Aspirin 81 Mg Tab.chew 81 Mg PO DAILY Carvedilol (Carvedilol) 3.125 Mg Tablet 3.125 Mg PO BIDWMEALS Lipitor (Atorvastatin Calcium) 40 Mg Tablet 40 Mg PO HS Clopidogrel (Clopidogrel Bisulfate) 75 Mg Tablet 75 Mg PO DAILY Vitamin D (Cholecalciferol (Vitamin D3)) 2,000 Unit Capsule 1 Cap PO DAILY [place]klin 5-325 Tablet (Acetaminophen/Hydrocodone Bitart) 1 Each Tablet 1 Tab PO PRN Q4HRS PRN Lyrica (Pregabalin) 50 Mg Capsule 25 Mg PO HS Clopidogrel (Clopidogrel Bisulfate) 75 Mg Tablet 1 Tab PO DAILY Atorvastatin Calcium 40 Mg Tablet 40 Mg PO HS Allopurinol 100 Mg Tablet 1 Tab PO DAILY Vitamin B-12 (Cyanocobalamin (Vitamin B-12)) 1,000 Mcg Tablet 1 Tab PO DAILY Vitamin D-3 (Cholecalciferol (Vitamin D3)) 2,000 Unit Capsule 1,000 Unit PO DAILY Vitals/I & O Vital Sign - Last 24 Hours 12/05/18 12/05/18 12/05/18 12/05/18 14:59 17:00 19:10 20:00 Temp 98.5 98.5 Pulse 60 59 Resp 18 20 B/P (MAP) 100/52 106/52 (70) Pulse Ox 94 O2 Delivery Nasal Cannula Room Air Room Air O2 Flow Rate 3.0 12/05/18 12/05/18 12/06/18 12/06/18 21:45 23:35 03:14 03:40 Temp 98.3 99.0 98.3 99.0 Pulse 66 63 Resp 18 18 18 20 B/P (MAP) 111/57 (75) 118/59 (78) Pulse Ox 94 97 97 99 O2 Delivery Nasal Cannula Room Air Room Air Nasal Cannula O2 Flow Rate 3.0 3.0 2.0 12/06/18 12/06/18 12/06/18 12/06/18 04:20 07:30 07:50 08:00 Temp 98.5 98.5 Pulse 59 59 Resp 20 20 B/P (MAP) 103/56 (72) 103/56 Pulse Ox 96 O2 Delivery Room Air Room Air O2 Flow Rate 2.0 12/06/18 12/06/18 09:43 10:49 Pulse Ox 96 96 O2 Delivery Room Air Room Air Intake and Output 12/05/18 12/05/18 12/06/18 15:01 23:01 07:01 Intake Total 624 ml 50 ml 320 ml Output Total 5 ml Balance 619 ml 50 ml 320 ml RANDAL REBOLLEDO APRN Dec 06, 2018 10:57
[2018-12-06 11:00] VITALS: BP 106/59
--- NOTE | 2018-12-06 11:09 | PDOC ---
PROGRESS NOTES Subjective Subjective "Do you know what the plan is for me? My daughter has been trying to speak with the social work therapist while she's still in town." Objective Objective Vascular Surgery - POD#1 Debridement right foot wound with amputation right 2nd toe w/wound vac dressing O: Patient in good spirits visiting with daughter and family friend. Complains of mild pain that improves with pain medication. Vital signs stable. Afebrile RLE: Wound vac dressing intact to right foot. Mild bloody drainage noted in collection canister. Assessment/Plan: 1. Continue wound vac therapy. Will plan to observe wound with wound vac dressing change tomorrow. 2. CKD on hemodialysis - Patient scheduled for tomorrow. 3. dietary services director working on LTAC placement 4. Continue IV antibiotic therapy per ID. Vital Signs Date Time Temp Pulse Resp B/P (MAP) Pulse Ox O2 Delivery O2 Flow Rate FiO2 12/06/18 10:49 96 Room Air 12/06/18 07:50 59 103/56 12/06/18 07:30 98.5 20 98.5 12/06/18 04:20 2.0 Intake and Output 12/06/18 07:01 Intake Total 994 ml Output Total 5 ml Balance 989 ml Intake Oral 794 ml IV Total 200 ml Estimated Blood Loss 5 ml # Bowel Movements 1 Comment Review of Relevant I have reviewed the following items simeon (where applicable) has been applied. Labs Laboratory Tests Test 12/04/18 11:12 12/04/18 16:33 12/04/18 21:03 12/05/18 06:30 Glucose (Fingerstick) 176 mg/dL (70-99) 130 mg/dL (70-99) 138 mg/dL (70-99) 61 mg/dL (70-99) Test 12/05/18 06:31 12/05/18 06:40 12/05/18 09:15 12/05/18 11:33 Glucose (Fingerstick) 124 mg/dL (70-99) 111 mg/dL (70-99) 194 mg/dL (70-99) White Blood Count 7.3 x10^3/uL (4.0-11.0) Red Blood Count 2.58 x10^6/uL (4.30-5.70) Hemoglobin 8.0 g/dL (13.0-17.5) Hematocrit 23.6 % (39.0-53.0) Mean Corpuscular Volume 91 fL (79-100) Mean Corpuscular Hemoglobin 31 pg (25-35) Mean Corpuscular Hemoglobin Concent 34 g/dL (31-37) Red Cell Distribution Width 17.5 % (11.5-14.5) Platelet Count 146 x10^3/uL (140-400) Neutrophils (%) (Auto) 65 % (31-73) Lymphocytes (%) (Auto) 18 % (24-48) Monocytes (%) (Auto) 11 % (0-9) Eosinophils (%) (Auto) 6 % (0-3) Basophils (%) (Auto) 0 % (0-3) Neutrophils # (Auto) 4.8 x10^3uL (1.8-7.7) Lymphocytes # (Auto) 1.3 x10^3/uL (1.0-4.8) Monocytes # (Auto) 0.8 x10^3/uL (0.0-1.1) Eosinophils # (Auto) 0.5 x10^3/uL (0.0-0.7) Basophils # (Auto) 0.0 x10^3/uL (0.0-0.2) Prothrombin Time 17.4 SEC (11.7-14.0) Prothromb Time International Ratio 1.5 (0.8-1.1) Sodium Level 139 mmol/L (136-145) Potassium Level 4.2 mmol/L (3.5-5.1) Chloride Level 101 mmol/L (98-107) Carbon Dioxide Level 31 mmol/L (21-32) Anion Gap 7 (6-14) Blood Urea Nitrogen 46 mg/dL (8-26) Creatinine 9.6 mg/dL (0.7-1.3) Estimated GFR (Cockcroft-Gault) 6.4 Glucose Level 128 mg/dL (70-99) Calcium Level 8.7 mg/dL (8.5-10.1) Test 12/05/18 18:00 Glucose (Fingerstick) 191 mg/dL (70-99) Laboratory Tests Test 12/05/18 11:33 12/05/18 18:00 Glucose (Fingerstick) 194 mg/dL (70-99) 191 mg/dL (70-99) Medications Current Medications Acetaminophen (Tylenol) 325 mg PRN Q4HRS PRN PO MILD PAIN / TEMP Last administered on 12/03/18 00:58; Start 11/24/18 at 20:30 Allopurinol (Zyloprim) 100 mg DAILY PO Last administered on 12/06/18 09:40; Start 11/25/18 at 09:00 Aspirin (Children'S Aspirin) 81 mg DAILY PO Last administered on 12/06/18 07:46 ; Start 11/25/18 at 09:00 Atorvastatin Calcium (Lipitor) 40 mg HS PO Last administered on 12/05/18 20:25 ; Start 11/24/18 at 21:00 Carvedilol (Coreg) 3.125 mg BIDWMEALS PO Last administered on 11/29/18 18:49; Start 11/24/18 at 21:00; Stop 11/30/18 at 10:19; Status DC Vitamin D (Vitamin D3) 1,000 unit DAILY PO Last administered on 12/06/18 07:46 ; Start 11/25/18 at 09:00 Clopidogrel Bisulfate (Plavix) 75 mg DAILY PO Last administered on 12/06/18 07: 46; Start 11/25/18 at 09:00 Cyanocobalamin (Vitamin B-12) 1,000 mcg DAILY PO Last administered on 12/06/18 07:46; Start 11/25/18 at 09:00 Acetaminophen/ Hydrocodone Bitart (Lortab 5/325) 1 tab PRN Q4HRS PRN PO MODERATE - SEVERE PAIN Last administered on 11/29/18 20:52; Start 11/24/18 at 20:30; Stop 11/30/18 at 11:04; Status DC Pregabalin (Lyrica) 50 mg HS PO Last administered on 11/30/18 20:18; Start at 21:00; Stop 12/01/18 at 12:12; Status DC Sevelamer Carbonate (Renvela) 800 mg TIDWMEALS PO Last administered on 07:47; Start 11/25/18 at 08:00 Vitamin B Complex/ Vitamin C (Krista-Beatriz) 1 tab DAILY PO Last administered on 07:47; Start 11/25/18 at 09:00 Lactobacillus Rhamnosus (Culturelle) 1 cap BID PO Last administered on 07:47; Start 11/24/18 at 21:00 Pantoprazole Sodium (Protonix) 40 mg DAILYAC PO Last administered on 12/06/18 07:46; Start 11/25/18 at 07:30 Insulin Human Lispro (HumaLOG) 0-5 UNITS TIDWMEALS SQ ; Start 11/24/18 at 21:00 ; Stop 11/24/18 at 21:57; Status DC Dextrose (Dextrose 50%-Water Syringe) 12.5 gm PRN Q15MIN PRN IV SEE COMMENTS; Start 11/24/18 at 20:45 Insulin Human Lispro (HumaLOG) 0-5 UNITS TIDWMEALS SQ ; Start 11/25/18 at 08:00 ; Stop 11/25/18 at 08:00; Status DC Insulin Human Lispro (HumaLOG) 0-5 UNITS BG 300-39... TIDWMEALS SQ Last administered on 12/06/18 09:08; Start 11/25/18 at 08:00 Collagenase (Santyl) 1 judi DAILY TP Last administered on 12/04/18 08:49; Start 11/25/18 at 10:00 Meropenem 500 mg/ Sodium Chloride 50 ml @ 100 mls/hr Q12HR IV ; Start at 21:00; Status UNV Daptomycin 690 mg/ Sodium Chloride 50 ml @ 100 mls/hr [id number]@1600 IV Last administered on 12/05/18 17:30; Start 11/25/18 at 16:00 Heparin Sodium (Porcine) (Heparin Sodium) 5,000 unit Q12HR SQ Last administered on 11/27/18at 20:28; Start 11/25/18 at 21:00; Stop 11/28/18 at 09 :44; Status DC Meropenem 500 mg/ Sodium Chloride 50 ml @ 100 mls/hr DAILY16 IV Last administered on 12/05/18 17:30; Start 11/25/18 at 16:00 Linezolid (Zyvox) 600 mg BID PO Last administered on 11/28/18at 08:48; Start 11/25/18 at 11:00; Stop 11/28/18 at 10:04; Status DC Info (PHARMACY MONITORING -- do not chart) 1 each PRN DAILY PRN MC SEE COMMENTS ; Start 11/25/18 at 10:45; Stop 11/28/18 at 17:07; Status DC Sodium Chloride 1,000 ml @ 1,000 mls/hr Q1H PRN IV hypotension; Start at 14:30; Stop 11/25/18 at 20:30; Status DC Sodium Chloride 1,000 ml @ 400 mls/hr Q2H30M PRN IV PATENCY; Start 11/25/18 at 14:30; Stop 11/25/18 at 20:30; Status DC Info (PHARMACY MONITORING -- do not chart) 1 each PRN DAILY PRN MC SEE COMMENTS ; Start 11/25/18 at 14:45; Status UNV Info (PHARMACY MONITORING -- do not chart) 1 each PRN DAILY PRN MC SEE COMMENTS ; Start 11/25/18 at 14:45; Status UNV Ondansetron HCl (Zofran Odt) 4 mg PRN Q6HRS PRN PO NAUSEA/VOMITING Last administered on 12/01/18at 07:30; Start 11/27/18 at 02:15 Magnesium Sulfate 50 ml @ 25 mls/hr PRN DAILY PRN IV for Mag < 1.7 on am labs; Start 11/27/18 at 14:00 Sodium Chloride 1,000 ml @ 1,000 mls/hr Q1H PRN IV hypotension; Start at 09:05; Stop 11/28/18 at 15:04; Status DC Albumin Human 200 ml @ 200 mls/hr 1X PRN PRN IV Hypotension; Start 11/28/18 at 09:15; Stop 11/28/18 at 15:14; Status DC Sodium Chloride 1,000 ml @ 400 mls/hr Q2H30M PRN IV PATENCY; Start 11/28/18 at 09:05; Stop 11/28/18 at 21:04; Status DC Info (PHARMACY MONITORING -- do not chart) 1 each PRN DAILY PRN MC SEE COMMENTS ; Start 11/28/18 at 09:15; Stop 11/28/18 at 17:07; Status DC Info (PHARMACY MONITORING -- do not chart) 1 each PRN DAILY PRN MC SEE COMMENTS ; Start 11/28/18 at 09:15; Stop 12/02/18 at 15:15; Status DC Sodium Chloride 1,000 ml @ 1,000 mls/hr Q1H PRN IV hypotension; Start 11/29/18 at 16:30; Stop 11/29/18 at 23:00; Status DC Info (PHARMACY MONITORING -- do not chart) 1 each PRN DAILY PRN MC SEE COMMENTS ; Start 11/29/18 at 16:45; Status UNV Info (PHARMACY MONITORING -- do not chart) 1 each PRN DAILY PRN MC SEE COMMENTS ; Start 11/29/18 at 16:45; Status UNV Info (PHARMACY MONITORING -- do not chart) 1 each PRN DAILY PRN MC SEE COMMENTS ; Start 11/30/18 at 08:30 Magnesium Sulfate 50 ml @ 25 mls/hr 1X ONCE IV Last administered on 11/30/18at 10:44; Start 11/30/18 at 10:00; Stop 11/30/18 at 11:59; Status DC Darbepoetin Reinaldo (Aranesp) 100 mcg WEEKLYHS SQ Last administered on 11/30/18at 20 :22; Start 11/30/18 at 21:00 Tramadol HCl (Ultram) 25 mg PRN Q6HRS PRN PO MODERATE PAIN Last administered on 11/30/18at 23:44; Start 11/30/18 at 11:00; Stop 12/01/18 at 12:12; Status DC Nystatin (Nystop) 1 judi BID TP Last administered on 12/06/18at 07:54; Start at 12:00 Sodium Chloride 1,000 ml @ 1,000 mls/hr Q1H PRN IV hypotension; Start 11/30/18 at 10:00; Stop 11/30/18 at 16:30; Status DC Albumin Human 200 ml @ 200 mls/hr 1X PRN PRN IV Hypotension; Start 11/30/18 at 10:00; Stop 11/30/18 at 16:30; Status DC Albumin Human 200 ml @ 100 mls/hr 1X ONCE IV Last administered on 11/30/18at 16 :45; Start 11/30/18 at 16:45; Stop 11/30/18 at 18:44; Status DC Albumin Human 500 ml @ 125 mls/hr Q4H IV Last administered on 12/01/18at 17:22; Start 12/01/18 at 12:00; Stop 12/01/18 at 19:59; Status DC Pregabalin (Lyrica) 25 mg HS PO Last administered on 12/05/18at 20:25; Start 12/01 at 21:00 Ondansetron HCl (Zofran Odt) 4 mg TIDAC PO Last administered on 12/06/18 07:47 ; Start 12/01/18 at 16:30 Metoclopramide HCl (Reglan) 5 mg TIDACHC PO Last administered on 12/06/18at 07:47 ; Start 12/01/18 at 16:30 Acetaminophen/ Hydrocodone Bitart (Lortab 5/325) 0.5 tab PRN Q4HRS PRN PO MODERATE PAIN Last administered on 12/06/18 09:43; Start 12/01/18 at 12:30 Sodium Chloride 1,000 ml @ 1,000 mls/hr Q1H PRN IV hypotension; Start 12/02/18 at 08:27; Stop 12/02/18 at 14:26; Status DC Albumin Human 200 ml @ 200 mls/hr 1X PRN PRN IV Hypotension; Start 12/02/18 at 08:30; Stop 12/02/18 at 14:29; Status DC Sodium Chloride 1,000 ml @ 400 mls/hr Q2H30M PRN IV PATENCY; Start 12/02/18 at 08:27; Stop 12/02/18 at 20:26; Status DC Info (PHARMACY MONITORING -- do not chart) 1 each PRN DAILY PRN MC SEE COMMENTS ; Start 12/02/18 at 08:30; Status UNV Info (PHARMACY MONITORING -- do not chart) 1 each PRN DAILY PRN MC SEE COMMENTS ; Start 12/02/18 at 08:30; Status UNV Ondansetron HCl (Zofran) 4 mg PRN Q6HRS PRN IV NAUSEA/VOMITING; Start 12/05/18 at 07:00; Stop 12/06/18 at 06:59; Status DC Morphine Sulfate (Morphine Sulfate) 1 mg PRN Q10MIN PRN IV SEVERE PAIN Last administered on 12/05/18at 09:39; Start 12/05/18 at 07:00; Stop 12/05/18 at 18:00; Status DC Ringer's Solution 1,000 ml @ 30 mls/hr Q24H IV ; Start 12/05/18 at 07:00; Stop 12/05/18 at 18:59; Status DC Lidocaine HCl (Xylocaine-Mpf 1% 2ml Vial) 2 ml PRN 1X PRN ID PRIOR TO IV START ; Start 12/05/18 at 07:00; Stop 12/05/18 at 07:01; Status DC Hydromorphone HCl (Dilaudid) 0.5 mg PRN Q10MIN PRN IV SEV PAIN, Second choice; Start 12/05/18 at 07:00; Stop 12/06/18 at 06:59; Status DC Carvedilol (Coreg) 3.125 mg BIDWMEALS PO Last administered on 12/06/18at 07:50; Start 12/03/18 at 08:00 Sodium Chloride 500 ml @ 30 mls/hr [id number] IV Last administered on 12/05/18at 11 :05; Start 12/05/18 at 06:30; Stop 12/06/18 at 06:29; Status DC Cefazolin Sodium 1 gm/Sodium Chloride 500 ml @ 500 mls/hr 1X ONCE IRR Last administered on 12/05/18at 07:45; Start 12/05/18 at 08:00; Stop 12/05/18 at 08:59; Status DC Sevoflurane (Ultane) 30 ml STK-MED ONCE IH ; Start 12/05/18 at 07:15; Stop at 07:16; Status DC Fentanyl Citrate (Fentanyl 2ml Vial) 100 mcg STK-MED ONCE .ROUTE ; Start at 07:15; Stop 12/05/18 at 07:17; Status DC Propofol 20 ml @ As Directed STK-MED ONCE IV ; Start 12/05/18 at 07:15; Stop 12/05 at 07:17; Status DC Lidocaine HCl (Lidocaine Pf 2% Vial) 5 ml STK-MED ONCE .ROUTE ; Start 12/05/18 at 07:15; Stop 12/05/18 at 07:17; Status DC Dexamethasone Sodium Phosphate (Decadron) 20 mg STK-MED ONCE .ROUTE ; Start 12/05 at 07:15; Stop 12/05/18 at 07:17; Status DC Ondansetron HCl (Zofran) 4 mg STK-MED ONCE .ROUTE ; Start 12/05/18 at 07:15; Stop 12/05/18 at 07:17; Status DC Lidocaine HCl 20 ml STK-MED ONCE .ROUTE ; Start 12/05/18 at 07:33; Stop 12/05/18 at 07:34; Status DC Cellulose (Surgicel Fibrillar 1x2) 1 each STK-MED ONCE .ROUTE ; Start 12/05/18 at 07:33; Stop 12/05/18 at 07:34; Status DC Phenylephrine HCl (PHENYLEPHRINE in 0.9% NACL PF) 1 mg STK-MED ONCE IV ; Start 12/05/18 at 07:56; Stop 12/05/18 at 07:58; Status DC Sodium Chloride 1,000 ml @ 1,000 mls/hr Q1H PRN IV hypotension; Start 12/05/18 at 08:31; Stop 12/05/18 at 14:30; Status DC Albumin Human 200 ml @ 200 mls/hr 1X PRN PRN IV Hypotension; Start 12/05/18 at 08:45; Stop 12/05/18 at 14:44; Status DC Sodium Chloride 1,000 ml @ 400 mls/hr Q2H30M PRN IV PATENCY Last administered on 12/05/18at 11:04; Start 12/05/18 at 08:31; Stop 12/05/18 at 20:30; Status DC Info (PHARMACY MONITORING -- do not chart) 1 each PRN DAILY PRN MC SEE COMMENTS ; Start 12/05/18 at 08:45; Status UNV Info (PHARMACY MONITORING -- do not chart) 1 each PRN DAILY PRN MC SEE COMMENTS ; Start 12/05/18 at 08:45; Status Cancel Morphine Sulfate (Morphine Sulfate) 4 mg STK-MED ONCE .ROUTE ; Start 12/05/18 at 09:35; Stop 12/05/18 at 09:37; Status DC Active Scripts Active Zofran (Ondansetron Hcl) 4 Mg Tablet 1 Tab PO Q6HRS Zyvox (Linezolid) 600 Mg Tablet 600 Mg PO BID 30 Days Hydrocodone-Apap 5-325 (Hydrocodone Bit/Acetaminophen) 1 Tab Tablet 1 Tab PO PRN Q4HRS PRN 30 Days Aspirin Ec (Aspirin) 81 Mg Tablet.dr 81 Mg PO DAILYWBKFT 30 Days [Pantoprazole] 40 MG Tablet. 40 Mg PO DAILYAC 30 Days Humalog (Insulin Lispro) 100 Unit/1 Ml Insuln.pen 0 Units SQ TIDWMEALS 30 Days BG 150-199= 1 units 200-299= 2 units 300-399= 4 units 400-499= 6 units ac tid sliding scale Culturelle (Lactobacillus Rhamnosus Gg) 1 Each Cap.sprink 1 Cap PO BID 30 Days Tylenol (Acetaminophen) 325 Mg Tablet 325 Mg PO PRN Q4HRS PRN 30 Days Carvedilol (Carvedilol) 3.125 Mg Tablet 3.125 Mg PO BIDWMEALS 30 Days Renvela (Sevelamer Carbonate) 800 Mg Tablet 800 Mg PO TIDWMEALS 30 Days Pantoprazole Sodium 40 Mg Tablet.dr 40 Mg PO DAILYAC 30 Days Krista-Beatriz Tablet (Folic Acid/Vitamin B Comp W-C) 0.8 Mg Tablet 1 Tab PO DAILY 30 Days Reported Vitamin B-12 (Cyanocobalamin (Vitamin B-12)) 1,000 Mcg Tablet 1 Tab PO DAILY Allopurinol 100 Mg Tablet 1 Tab PO DAILY Renal Caps Softgel (Folic Acid/Vitamin B Comp W-C) 1 Mg Capsule 1 Cap PO DAILY Acidophilus Lactobacilli (Lactobacillus Acidophilus) 1 Each Capsule 1 Each PO BID Protonix (Pantoprazole Sodium) 20 Mg Tablet. 40 Mg PO DAILY Renvela (Sevelamer Carbonate) 800 Mg Tablet 800 Mg PO TIDWMEALS Lyrica (Pregabalin) 50 Mg Capsule 50 Mg PO HS Tylenol (Acetaminophen) 325 Mg Tablet 1 Tab PO PRN Q4HRS Hydrocodone-Apap 5-325 (Hydrocodone Bit/Acetaminophen) 1 Tab Tablet 1 Tab PO PRN Q4HRS PRN Aspirin 81 Mg Tab.chew 81 Mg PO DAILY Carvedilol (Carvedilol) 3.125 Mg Tablet 3.125 Mg PO BIDWMEALS Lipitor (Atorvastatin Calcium) 40 Mg Tablet 40 Mg PO HS Clopidogrel (Clopidogrel Bisulfate) 75 Mg Tablet 75 Mg PO DAILY Vitamin D (Cholecalciferol (Vitamin D3)) 2,000 Unit Capsule 1 Cap PO DAILY Rogers 5-325 Tablet (Acetaminophen/Hydrocodone Bitart) 1 Each Tablet 1 Tab PO PRN Q4HRS PRN Lyrica (Pregabalin) 50 Mg Capsule 25 Mg PO HS Clopidogrel (Clopidogrel Bisulfate) 75 Mg Tablet 1 Tab PO DAILY Atorvastatin Calcium 40 Mg Tablet 40 Mg PO HS Allopurinol 100 Mg Tablet 1 Tab PO DAILY Vitamin B-12 (Cyanocobalamin (Vitamin B-12)) 1,000 Mcg Tablet 1 Tab PO DAILY Vitamin D-3 (Cholecalciferol (Vitamin D3)) 2,000 Unit Capsule 1,000 Unit PO DAILY Vitals/I & O Vital Sign - Last 24 Hours 12/05/18 12/05/18 12/05/18 12/05/18 14:59 17:00 19:10 20:00 Temp 98.5 98.5 Pulse 60 59 Resp 18 20 B/P (MAP) 100/52 106/52 (70) Pulse Ox 94 O2 Delivery Nasal Cannula Room Air Room Air O2 Flow Rate 3.0 12/05/18 12/05/18 12/06/18 12/06/18 21:45 23:35 03:14 03:40 Temp 98.3 99.0 98.3 99.0 Pulse 66 63 Resp 18 18 18 20 B/P (MAP) 111/57 (75) 118/59 (78) Pulse Ox 94 97 97 99 O2 Delivery Nasal Cannula Room Air Room Air Nasal Cannula O2 Flow Rate 3.0 3.0 2.0 12/06/18 12/06/18 12/06/18 12/06/18 04:20 07:30 07:50 08:00 Temp 98.5 98.5 Pulse 59 59 Resp 20 20 B/P (MAP) 103/56 (72) 103/56 Pulse Ox 96 O2 Delivery Room Air Room Air O2 Flow Rate 2.0 12/06/18 12/06/18 09:43 10:49 Pulse Ox 96 96 O2 Delivery Room Air Room Air Intake and Output 12/05/18 12/05/18 12/06/18 15:01 23:01 07:01 Intake Total 624 ml 50 ml 320 ml Output Total 5 ml Balance 619 ml 50 ml 320 ml RANDAL REBOLLEDO APRN Dec 06, 2018 11:09
--- NOTE | 2018-12-06 12:00 | NUR ---
SS following up with discharge planning. SS received notification that pt needed referral to [facility]. SS phoned and faxed referral to [facility], ; fax [phone]. Pt's RN notified.
--- NOTE | 2018-12-06 13:09 | NUR ---
Wound Care Will evaluate pt's right foot and leg wound tomorrow with Vascular during next vac change.
[2018-12-06 15:00] VITALS: BP 119/61
[2018-12-06] MEDS: MEROPENEM 500 MG in IV NORMAL SALINE 50ML 50 ML IV SCH (17:13)
[2018-12-06 19:56] VITALS: BP 92/41
[2018-12-06] MEDS: ATORVASTATIN CALCIUM 40 MG TABLET. PO SCH (20:59)
[2018-12-06] MEDS: PREGABALIN 25 MG CAPSULE PO SCH (20:59)
[2018-12-06 23:18] VITALS: BP 104/57
[2018-12-07 03:37] VITALS: BP 97/52
[2018-12-07] MEDS: HYDROcodone/APAP 5/325MG 1 TAB TABLET PO PRN ×4 (06:50→22:34)
[2018-12-07 06:56] LABS: BASO % 1 % (0-3); EOS % 11 % (0-3); HEMATOCRIT 21.1 % (39.0-53.0); HEMOGLOBIN 7.3 g/dL (13.0-17.5); LYMPH # 1.5 x10^3/uL (1.0-4.8); LYMPH % 18 % (24-48); MEAN CORPUSCULAR HEMOGLOBIN 31 pg (25-35); MEAN CORPUSCULAR HGB CONC 35 g/dL (31-37); MEAN CORPUSCULAR VOLUME 91 fL (79-100); MONO # 0.7 x10^3/uL (0.0-1.1); MONO % 8 % (0-9); NEUT # 5.3 x10^3uL (1.8-7.7); NEUT % 63 % (31-73); PLATELET COUNT 179 x10^3/uL (140-400); RED BLOOD COUNT 2.32 x10^6/uL (4.30-5.70); RED CELL DISTRIBUTION WIDTH 17.6 % (11.5-14.5); WHITE BLOOD COUNT 8.4 x10^3/uL (4.0-11.0)
[2018-12-07 07:00] VITALS: BP 105/61
[2018-12-07 07:02] LABS: ALBUMIN 2.2 g/dL (3.4-5.0); ALBUMIN/GLOBULIN RATIO 0.6 (1.0-1.7); CALCIUM 8.4 mg/dL (8.5-10.1); CREATININE 8.9 mg/dL (0.7-1.3); POTASSIUM 4.8 mmol/L (3.5-5.1); TOTAL BILIRUBIN 0.3 mg/dL (0.2-1.0); TOTAL PROTEIN 6.1 g/dL (6.4-8.2)
[2018-12-07] MEDS: INSULIN LISPRO 300 UNITS/3 ML INSULN.PEN. SQ SCH ×3 (08:00→17:49)
[2018-12-07] MEDS: PANTOPRAZOLE 40 MG TABLET.DR. PO SCH (08:35)
[2018-12-07] MEDS: ONDANSETRON ODT 4 MG TAB.RAPDIS. PO SCH ×3 (08:35→17:38)
[2018-12-07] MEDS: ALLOPURINOL 100 MG TABLET. PO SCH (08:35)
[2018-12-07] MEDS: METOCLOPRAMIDE 5 MG TABLET. PO SCH (08:35)
[2018-12-07] MEDS: ASPIRIN CHEWABLE 81 MG TABLET. PO SCH (08:35)
[2018-12-07] MEDS: FOLIC/VIT B COMP W-C (RENAL) TABLET. PO SCH (08:35)
[2018-12-07] MEDS: CHOLECALCIFEROL (VITAMIN D3) 1,000 UNIT TABLET PO SCH (08:35)
[2018-12-07] MEDS: CYANOCOBALAMIN (VITAMIN B-12) 1,000 MCG TABLET. PO SCH (08:35)
[2018-12-07] MEDS: SEVELAMER CARBONATE 800 MG TABLET. PO SCH ×3 (08:35→17:38)
[2018-12-07] MEDS: CLOPIDOGREL BISULFATE 75 MG TABLET PO SCH (08:36)
[2018-12-07] MEDS: LACTOBACILLUS RHAMNOSUS GG 1 CAPSULE. PO SCH ×2 (08:36→21:54)
[2018-12-07] MEDS: CARVEDILOL 3.125 MG TABLET. PO SCH ×2 (08:36→17:40)
[2018-12-07] MEDS: NYSTATIN TOPICAL POWDER 15GM BOTTLE. TP SCH ×2 (08:39→21:00)
[2018-12-07] MEDS: COLLAGENASE 250 UNIT/GM TOPICAL OINTMENT 30GM TUBE. TP SCH (08:54)
--- NOTE | 2018-12-07 09:57 | PDOC ---
Infectious Disease Note Subjective Subjective Swallowed a med wrong and vomited times one but better Doing ok pain ok denies any n/v/d/abdo pain/rash or generalized aches awaiting placement Vital Sign Vital Signs Vital Signs Date Time Temp Pulse Resp B/P (MAP) Pulse Ox O2 Delivery O2 Flow Rate FiO2 12/07/18 08:36 60 105/61 12/07/18 08:36 96 Room Air 12/07/18 07:00 98.2 18 98.2 Physical Exam PHYSICAL EXAM GENERAL: NAD - in bed - eating HEENT: Oral cavity clear NECK: Supple. LUNGS: Clear HEART: S1, S2 ABDOMEN: Soft, NT, BS present - obese EXTREMITIES: Trace edema; right foot with vac in place AV fistula NEUROLOGIC: Alert and oriented SKIN: No rash Right SCL (11/10) clean Labs Lab Laboratory Tests Test 12/06/18 12:08 12/06/18 16:56 12/07/18 06:00 12/07/18 07:21 Glucose (Fingerstick) 168 mg/dL (70-99) 189 mg/dL (70-99) 131 mg/dL (70-99) White Blood Count 8.4 x10^3/uL (4.0-11.0) Red Blood Count 2.32 x10^6/uL (4.30-5.70) Hemoglobin 7.3 g/dL (13.0-17.5) Hematocrit 21.1 % (39.0-53.0) Mean Corpuscular Volume 91 fL (79-100) Mean Corpuscular Hemoglobin 31 pg (25-35) Mean Corpuscular Hemoglobin Concent 35 g/dL (31-37) Red Cell Distribution Width 17.6 % (11.5-14.5) Platelet Count 179 x10^3/uL (140-400) Neutrophils (%) (Auto) 63 % (31-73) Lymphocytes (%) (Auto) 18 % (24-48) Monocytes (%) (Auto) 8 % (0-9) Eosinophils (%) (Auto) 11 % (0-3) Basophils (%) (Auto) 1 % (0-3) Neutrophils # (Auto) 5.3 x10^3uL (1.8-7.7) Lymphocytes # (Auto) 1.5 x10^3/uL (1.0-4.8) Monocytes # (Auto) 0.7 x10^3/uL (0.0-1.1) Eosinophils # (Auto) 1.0 x10^3/uL (0.0-0.7) Basophils # (Auto) 0.0 x10^3/uL (0.0-0.2) Sodium Level 138 mmol/L (136-145) Potassium Level 4.8 mmol/L (3.5-5.1) Chloride Level 100 mmol/L (98-107) Carbon Dioxide Level 29 mmol/L (21-32) Anion Gap 9 (6-14) Blood Urea Nitrogen 58 mg/dL (8-26) Creatinine 8.9 mg/dL (0.7-1.3) Estimated GFR (Cockcroft-Gault) 7.0 BUN/Creatinine Ratio 7 (6-20) Glucose Level 150 mg/dL (70-99) Calcium Level 8.4 mg/dL (8.5-10.1) Total Bilirubin 0.3 mg/dL (0.2-1.0) Aspartate Amino Transf (AST/SGOT) 23 U/L (15-37) Alanine Aminotransferase (ALT/SGPT) 16 U/L (16-63) Alkaline Phosphatase 191 U/L (46-116) Creatine Kinase 25 U/L (39-308) Total Protein 6.1 g/dL (6.4-8.2) Albumin 2.2 g/dL (3.4-5.0) Albumin/Globulin Ratio 0.6 (1.0-1.7) Objective Assessment Recent 1 st toe amp with developing gangrene, s/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 (h/o MSSA, Enterobacter and VRE). ESR 90 S/p Right first toe open ray amputation wound debridement with amputation of his second toe including excision of the metatarsal head and proximal and mid metatarsal bone 12/05. Right foot wound VAC dressing. Right lateral malleolus wound s/p sharp excisional debridement removing necrotic subcutaneous tissue, 11/02. -11/02. Enterobacter aerogenes, Cipro sensitive, VRE (linezolid & Dapto sensistive; PCN resistent) and Gram variable nuria not ID PAD s/p angio 11/03. ESRD/HD Diarrhea/loose stools. C. diff pending Thrombocytopenia - on Zyvox Plan Plan of Care Discharging to [facility] when can be arranged however have issues with cost of Daptomycin Zyvox causes issue with Thrombocytopenia so not an option Continue Dapto and meropenem for now Soc Service to check cost of Tigecycline as possible option though latter can cause nausea Give first dose here before transfer if approved by osh facility,give it slowly as it can cause nausea and gi upset Check CK/CBC/CMP in am When ready for dc home Every Wednesday CBC, ESR, CPK.LFT Fax results to [phone] f/u appt with us in 1-2 weeks f/u with vascular as directed HBO therapy - wound care team following D/W Daughter at bedside D/W RN D/w Dr. Byers 12/05 JAYY SUÁREZ MD Dec 07, 2018 09:57
--- NOTE | 2018-12-07 10:06 | PDOC ---
PROGRESS NOTES Subjective Subjective vomited once during breakfast today. Objective Objective Vital Signs Date Time Temp Pulse Resp B/P (MAP) Pulse Ox O2 Delivery O2 Flow Rate FiO2 12/07/18 08:36 60 105/61 12/07/18 08:36 96 Room Air 12/07/18 07:00 98.2 18 98.2 12/06/18 04:20 2.0 Intake and Output 12/07/18 07:01 Intake Total 1210 ml Balance 1210 ml Intake Oral 1210 ml Physical Exam Abdomen: Soft, Other (obese) Heart: Normal S1, Normal S2 Extremities: No edema, Other (wound vac right foot with dry dressing) General: Alert HEENT: Atraumatic Lungs: Clear to auscultation Neuro: Normal speech Psych/Mental Status: Mental status NL Skin: No rashes Assessment Assessment necrotic right foot wound debridement of right first ray and amputation of 2nd toe and 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 suspect due to zyvox. will avoid heparin products nausea and vomiting . vomited once today anemia of chronic disease Plan Plan of Care continue daptomycin and merepenem continue wound care hemodialysis today Comment Review of Relevant I have reviewed the following items simeon (where applicable) has been applied. Labs Laboratory Tests Test 12/05/18 11:33 12/05/18 18:00 12/06/18 07:45 12/06/18 12:08 Glucose (Fingerstick) 194 mg/dL (70-99) 191 mg/dL (70-99) 164 mg/dL (70-99) 168 mg/dL (70-99) Test 12/06/18 16:56 12/07/18 06:00 12/07/18 07:21 Glucose (Fingerstick) 189 mg/dL (70-99) 131 mg/dL (70-99) White Blood Count 8.4 x10^3/uL (4.0-11.0) Red Blood Count 2.32 x10^6/uL (4.30-5.70) Hemoglobin 7.3 g/dL (13.0-17.5) Hematocrit 21.1 % (39.0-53.0) Mean Corpuscular Volume 91 fL (79-100) Mean Corpuscular Hemoglobin 31 pg (25-35) Mean Corpuscular Hemoglobin Concent 35 g/dL (31-37) Red Cell Distribution Width 17.6 % (11.5-14.5) Platelet Count 179 x10^3/uL (140-400) Neutrophils (%) (Auto) 63 % (31-73) Lymphocytes (%) (Auto) 18 % (24-48) Monocytes (%) (Auto) 8 % (0-9) Eosinophils (%) (Auto) 11 % (0-3) Basophils (%) (Auto) 1 % (0-3) Neutrophils # (Auto) 5.3 x10^3uL (1.8-7.7) Lymphocytes # (Auto) 1.5 x10^3/uL (1.0-4.8) Monocytes # (Auto) 0.7 x10^3/uL (0.0-1.1) Eosinophils # (Auto) 1.0 x10^3/uL (0.0-0.7) Basophils # (Auto) 0.0 x10^3/uL (0.0-0.2) Sodium Level 138 mmol/L (136-145) Potassium Level 4.8 mmol/L (3.5-5.1) Chloride Level 100 mmol/L (98-107) Carbon Dioxide Level 29 mmol/L (21-32) Anion Gap 9 (6-14) Blood Urea Nitrogen 58 mg/dL (8-26) Creatinine 8.9 mg/dL (0.7-1.3) Estimated GFR (Cockcroft-Gault) 7.0 BUN/Creatinine Ratio 7 (6-20) Glucose Level 150 mg/dL (70-99) Calcium Level 8.4 mg/dL (8.5-10.1) Total Bilirubin 0.3 mg/dL (0.2-1.0) Aspartate Amino Transf (AST/SGOT) 23 U/L (15-37) Alanine Aminotransferase (ALT/SGPT) 16 U/L (16-63) Alkaline Phosphatase 191 U/L (46-116) Creatine Kinase 25 U/L (39-308) Total Protein 6.1 g/dL (6.4-8.2) Albumin 2.2 g/dL (3.4-5.0) Albumin/Globulin Ratio 0.6 (1.0-1.7) Laboratory Tests Test 12/06/18 12:08 12/06/18 16:56 12/07/18 06:00 12/07/18 07:21 Glucose (Fingerstick) 168 mg/dL (70-99) 189 mg/dL (70-99) 131 mg/dL (70-99) White Blood Count 8.4 x10^3/uL (4.0-11.0) Red Blood Count 2.32 x10^6/uL (4.30-5.70) Hemoglobin 7.3 g/dL (13.0-17.5) Hematocrit 21.1 % (39.0-53.0) Mean Corpuscular Volume 91 fL (79-100) Mean Corpuscular Hemoglobin 31 pg (25-35) Mean Corpuscular Hemoglobin Concent 35 g/dL (31-37) Red Cell Distribution Width 17.6 % (11.5-14.5) Platelet Count 179 x10^3/uL (140-400) Neutrophils (%) (Auto) 63 % (31-73) Lymphocytes (%) (Auto) 18 % (24-48) Monocytes (%) (Auto) 8 % (0-9) Eosinophils (%) (Auto) 11 % (0-3) Basophils (%) (Auto) 1 % (0-3) Neutrophils # (Auto) 5.3 x10^3uL (1.8-7.7) Lymphocytes # (Auto) 1.5 x10^3/uL (1.0-4.8) Monocytes # (Auto) 0.7 x10^3/uL (0.0-1.1) Eosinophils # (Auto) 1.0 x10^3/uL (0.0-0.7) Basophils # (Auto) 0.0 x10^3/uL (0.0-0.2) Sodium Level 138 mmol/L (136-145) Potassium Level 4.8 mmol/L (3.5-5.1) Chloride Level 100 mmol/L (98-107) Carbon Dioxide Level 29 mmol/L (21-32) Anion Gap 9 (6-14) Blood Urea Nitrogen 58 mg/dL (8-26) Creatinine 8.9 mg/dL (0.7-1.3) Estimated GFR (Cockcroft-Gault) 7.0 BUN/Creatinine Ratio 7 (6-20) Glucose Level 150 mg/dL (70-99) Calcium Level 8.4 mg/dL (8.5-10.1) Total Bilirubin 0.3 mg/dL (0.2-1.0) Aspartate Amino Transf (AST/SGOT) 23 U/L (15-37) Alanine Aminotransferase (ALT/SGPT) 16 U/L (16-63) Alkaline Phosphatase 191 U/L (46-116) Creatine Kinase 25 U/L (39-308) Total Protein 6.1 g/dL (6.4-8.2) Albumin 2.2 g/dL (3.4-5.0) Albumin/Globulin Ratio 0.6 (1.0-1.7) Medications Current Medications Acetaminophen (Tylenol) 325 mg PRN Q4HRS PRN PO MILD PAIN / TEMP Last administered on 12/03/18 00:58; Start 11/24/18 at 20:30 Allopurinol (Zyloprim) 100 mg DAILY PO Last administered on 12/07/18 08:35; Start 11/25/18 at 09:00 Aspirin (Children'S Aspirin) 81 mg DAILY PO Last administered on 12/07/18 08:35 ; Start 11/25/18 at 09:00 Atorvastatin Calcium (Lipitor) 40 mg HS PO Last administered on 12/06/18 20:59 ; Start 11/24/18 at 21:00 Carvedilol (Coreg) 3.125 mg BIDWMEALS PO Last administered on 11/29/18 18:49; Start 11/24/18 at 21:00; Stop 11/30/18 at 10:19; Status DC Vitamin D (Vitamin D3) 1,000 unit DAILY PO Last administered on 12/07/18 08:35 ; Start 11/25/18 at 09:00 Clopidogrel Bisulfate (Plavix) 75 mg DAILY PO Last administered on 12/07/18 08: 36; Start 11/25/18 at 09:00 Cyanocobalamin (Vitamin B-12) 1,000 mcg DAILY PO Last administered on 12/07/18 08:35; Start 11/25/18 at 09:00 Acetaminophen/ Hydrocodone Bitart (Lortab 5/325) 1 tab PRN Q4HRS PRN PO MODERATE - SEVERE PAIN Last administered on 11/29/18 20:52; Start 11/24/18 at 20:30; Stop 11/30/18 at 11:04; Status DC Pregabalin (Lyrica) 50 mg HS PO Last administered on 11/30/18 20:18; Start at 21:00; Stop 12/01/18 at 12:12; Status DC Sevelamer Carbonate (Renvela) 800 mg TIDWMEALS PO Last administered on 08:35; Start 11/25/18 at 08:00 Vitamin B Complex/ Vitamin C (Krista-Beatriz) 1 tab DAILY PO Last administered on 08:35; Start 11/25/18 at 09:00 Lactobacillus Rhamnosus (Culturelle) 1 cap BID PO Last administered on 08:36; Start 11/24/18 at 21:00 Pantoprazole Sodium (Protonix) 40 mg DAILYAC PO Last administered on 12/07/18 08:35; Start 11/25/18 at 07:30 Insulin Human Lispro (HumaLOG) 0-5 UNITS TIDWMEALS SQ ; Start 11/24/18 at 21:00 ; Stop 11/24/18 at 21:57; Status DC Dextrose (Dextrose 50%-Water Syringe) 12.5 gm PRN Q15MIN PRN IV SEE COMMENTS; Start 11/24/18 at 20:45 Insulin Human Lispro (HumaLOG) 0-5 UNITS TIDWMEALS SQ ; Start 11/25/18 at 08:00 ; Stop 11/25/18 at 08:00; Status DC Insulin Human Lispro (HumaLOG) 0-5 UNITS BG 300-39... TIDWMEALS SQ Last administered on 12/06/18 17:31; Start 11/25/18 at 08:00 Collagenase (Santyl) 1 judi DAILY TP Last administered on 12/04/18 08:49; Start 11/25/18 at 10:00 Meropenem 500 mg/ Sodium Chloride 50 ml @ 100 mls/hr Q12HR IV ; Start at 21:00; Status UNV Daptomycin 690 mg/ Sodium Chloride 50 ml @ 100 mls/hr [id number]@1600 IV Last administered on 12/05/18at 17:30; Start 11/25/18 at 16:00 Heparin Sodium (Porcine) (Heparin Sodium) 5,000 unit Q12HR SQ Last administered on 11/27/18at 20:28; Start 11/25/18 at 21:00; Stop 11/28/18 at 09 :44; Status DC Meropenem 500 mg/ Sodium Chloride 50 ml @ 100 mls/hr DAILY16 IV Last administered on 12/06/18at 17:13; Start 11/25/18 at 16:00 Linezolid (Zyvox) 600 mg BID PO Last administered on 11/28/18at 08:48; Start 11/25/18 at 11:00; Stop 11/28/18 at 10:04; Status DC Info (PHARMACY MONITORING -- do not chart) 1 each PRN DAILY PRN MC SEE COMMENTS ; Start 11/25/18 at 10:45; Stop 11/28/18 at 17:07; Status DC Sodium Chloride 1,000 ml @ 1,000 mls/hr Q1H PRN IV hypotension; Start at 14:30; Stop 11/25/18 at 20:30; Status DC Sodium Chloride 1,000 ml @ 400 mls/hr Q2H30M PRN IV PATENCY; Start 11/25/18 at 14:30; Stop 11/25/18 at 20:30; Status DC Info (PHARMACY MONITORING -- do not chart) 1 each PRN DAILY PRN MC SEE COMMENTS ; Start 11/25/18 at 14:45; Status UNV Info (PHARMACY MONITORING -- do not chart) 1 each PRN DAILY PRN MC SEE COMMENTS ; Start 11/25/18 at 14:45; Status UNV Ondansetron HCl (Zofran Odt) 4 mg PRN Q6HRS PRN PO NAUSEA/VOMITING Last administered on 12/01/18at 07:30; Start 11/27/18 at 02:15 Magnesium Sulfate 50 ml @ 25 mls/hr PRN DAILY PRN IV for Mag < 1.7 on am labs; Start 11/27/18 at 14:00 Sodium Chloride 1,000 ml @ 1,000 mls/hr Q1H PRN IV hypotension; Start at 09:05; Stop 11/28/18 at 15:04; Status DC Albumin Human 200 ml @ 200 mls/hr 1X PRN PRN IV Hypotension; Start 11/28/18 at 09:15; Stop 11/28/18 at 15:14; Status DC Sodium Chloride 1,000 ml @ 400 mls/hr Q2H30M PRN IV PATENCY; Start 11/28/18 at 09:05; Stop 11/28/18 at 21:04; Status DC Info (PHARMACY MONITORING -- do not chart) 1 each PRN DAILY PRN MC SEE COMMENTS ; Start 11/28/18 at 09:15; Stop 11/28/18 at 17:07; Status DC Info (PHARMACY MONITORING -- do not chart) 1 each PRN DAILY PRN MC SEE COMMENTS ; Start 11/28/18 at 09:15; Stop 12/02/18 at 15:15; Status DC Sodium Chloride 1,000 ml @ 1,000 mls/hr Q1H PRN IV hypotension; Start 11/29/18 at 16:30; Stop 11/29/18 at 23:00; Status DC Info (PHARMACY MONITORING -- do not chart) 1 each PRN DAILY PRN MC SEE COMMENTS ; Start 11/29/18 at 16:45; Status UNV Info (PHARMACY MONITORING -- do not chart) 1 each PRN DAILY PRN MC SEE COMMENTS ; Start 11/29/18 at 16:45; Status UNV Info (PHARMACY MONITORING -- do not chart) 1 each PRN DAILY PRN MC SEE COMMENTS ; Start 11/30/18 at 08:30 Magnesium Sulfate 50 ml @ 25 mls/hr 1X ONCE IV Last administered on 11/30/18at 10:44; Start 11/30/18 at 10:00; Stop 11/30/18 at 11:59; Status DC Darbepoetin Reinaldo (Aranesp) 100 mcg WEEKLYHS SQ Last administered on 11/30/18at 20 :22; Start 11/30/18 at 21:00 Tramadol HCl (Ultram) 25 mg PRN Q6HRS PRN PO MODERATE PAIN Last administered on 11/30/18at 23:44; Start 11/30/18 at 11:00; Stop 12/01/18 at 12:12; Status DC Nystatin (Nystop) 1 judi BID TP Last administered on 12/07/18at 08:39; Start at 12:00 Sodium Chloride 1,000 ml @ 1,000 mls/hr Q1H PRN IV hypotension; Start 11/30/18 at 10:00; Stop 11/30/18 at 16:30; Status DC Albumin Human 200 ml @ 200 mls/hr 1X PRN PRN IV Hypotension; Start 11/30/18 at 10:00; Stop 11/30/18 at 16:30; Status DC Albumin Human 200 ml @ 100 mls/hr 1X ONCE IV Last administered on 11/30/18at 16 :45; Start 11/30/18 at 16:45; Stop 11/30/18 at 18:44; Status DC Albumin Human 500 ml @ 125 mls/hr Q4H IV Last administered on 12/01/18at 17:22; Start 12/01/18 at 12:00; Stop 12/01/18 at 19:59; Status DC Pregabalin (Lyrica) 25 mg HS PO Last administered on 12/06/18at 20:59; Start 12/01 at 21:00 Ondansetron HCl (Zofran Odt) 4 mg TIDAC PO Last administered on 12/07/18at 08:35 ; Start 12/01/18 at 16:30 Metoclopramide HCl (Reglan) 5 mg TIDACHC PO Last administered on 12/07/18at 08:35 ; Start 12/01/18 at 16:30 Acetaminophen/ Hydrocodone Bitart (Lortab 5/325) 0.5 tab PRN Q4HRS PRN PO MODERATE PAIN Last administered on 12/07/18at 06:50; Start 12/01/18 at 12:30 Sodium Chloride 1,000 ml @ 1,000 mls/hr Q1H PRN IV hypotension; Start 12/02/18 at 08:27; Stop 12/02/18 at 14:26; Status DC Albumin Human 200 ml @ 200 mls/hr 1X PRN PRN IV Hypotension; Start 12/02/18 at 08:30; Stop 12/02/18 at 14:29; Status DC Sodium Chloride 1,000 ml @ 400 mls/hr Q2H30M PRN IV PATENCY; Start 12/02/18 at 08:27; Stop 12/02/18 at 20:26; Status DC Info (PHARMACY MONITORING -- do not chart) 1 each PRN DAILY PRN MC SEE COMMENTS ; Start 12/02/18 at 08:30; Status UNV Info (PHARMACY MONITORING -- do not chart) 1 each PRN DAILY PRN MC SEE COMMENTS ; Start 12/02/18 at 08:30; Status UNV Ondansetron HCl (Zofran) 4 mg PRN Q6HRS PRN IV NAUSEA/VOMITING; Start 12/05/18 at 07:00; Stop 12/06/18 at 06:59; Status DC Morphine Sulfate (Morphine Sulfate) 1 mg PRN Q10MIN PRN IV SEVERE PAIN Last administered on 12/05/18at 09:39; Start 12/05/18 at 07:00; Stop 12/05/18 at 18:00; Status DC Ringer's Solution 1,000 ml @ 30 mls/hr Q24H IV ; Start 12/05/18 at 07:00; Stop 12/05/18 at 18:59; Status DC Lidocaine HCl (Xylocaine-Mpf 1% 2ml Vial) 2 ml PRN 1X PRN ID PRIOR TO IV START ; Start 12/05/18 at 07:00; Stop 12/05/18 at 07:01; Status DC Hydromorphone HCl (Dilaudid) 0.5 mg PRN Q10MIN PRN IV SEV PAIN, Second choice; Start 12/05/18 at 07:00; Stop 12/06/18 at 06:59; Status DC Carvedilol (Coreg) 3.125 mg BIDWMEALS PO Last administered on 12/07/18at 08:36; Start 12/03/18 at 08:00 Sodium Chloride 500 ml @ 30 mls/hr [id number] IV Last administered on 12/05/18at 11 :05; Start 12/05/18 at 06:30; Stop 12/06/18 at 06:29; Status DC Cefazolin Sodium 1 gm/Sodium Chloride 500 ml @ 500 mls/hr 1X ONCE IRR Last administered on 12/05/18at 07:45; Start 12/05/18 at 08:00; Stop 12/05/18 at 08:59; Status DC Sevoflurane (Ultane) 30 ml STK-MED ONCE IH ; Start 12/05/18 at 07:15; Stop at 07:16; Status DC Fentanyl Citrate (Fentanyl 2ml Vial) 100 mcg STK-MED ONCE .ROUTE ; Start at 07:15; Stop 12/05/18 at 07:17; Status DC Propofol 20 ml @ As Directed STK-MED ONCE IV ; Start 12/05/18 at 07:15; Stop 12/05 at 07:17; Status DC Lidocaine HCl (Lidocaine Pf 2% Vial) 5 ml STK-MED ONCE .ROUTE ; Start 12/05/18 at 07:15; Stop 12/05/18 at 07:17; Status DC Dexamethasone Sodium Phosphate (Decadron) 20 mg STK-MED ONCE .ROUTE ; Start 12/05 at 07:15; Stop 12/05/18 at 07:17; Status DC Ondansetron HCl (Zofran) 4 mg STK-MED ONCE .ROUTE ; Start 12/05/18 at 07:15; Stop 12/05/18 at 07:17; Status DC Lidocaine HCl 20 ml STK-MED ONCE .ROUTE ; Start 12/05/18 at 07:33; Stop 12/05/18 at 07:34; Status DC Cellulose (Surgicel Fibrillar 1x2) 1 each STK-MED ONCE .ROUTE ; Start 12/05/18 at 07:33; Stop 12/05/18 at 07:34; Status DC Phenylephrine HCl (PHENYLEPHRINE in 0.9% NACL PF) 1 mg STK-MED ONCE IV ; Start 12/05/18 at 07:56; Stop 12/05/18 at 07:58; Status DC Sodium Chloride 1,000 ml @ 1,000 mls/hr Q1H PRN IV hypotension; Start 12/05/18 at 08:31; Stop 12/05/18 at 14:30; Status DC Albumin Human 200 ml @ 200 mls/hr 1X PRN PRN IV Hypotension; Start 12/05/18 at 08:45; Stop 12/05/18 at 14:44; Status DC Sodium Chloride 1,000 ml @ 400 mls/hr Q2H30M PRN IV PATENCY Last administered on 12/05/18at 11:04; Start 12/05/18 at 08:31; Stop 12/05/18 at 20:30; Status DC Info (PHARMACY MONITORING -- do not chart) 1 each PRN DAILY PRN MC SEE COMMENTS ; Start 12/05/18 at 08:45; Status UNV Info (PHARMACY MONITORING -- do not chart) 1 each PRN DAILY PRN MC SEE COMMENTS ; Start 12/05/18 at 08:45; Status Cancel Morphine Sulfate (Morphine Sulfate) 4 mg STK-MED ONCE .ROUTE ; Start 12/05/18 at 09:35; Stop 12/05/18 at 09:37; Status DC Active Scripts Active Zofran (Ondansetron Hcl) 4 Mg Tablet 1 Tab PO Q6HRS Zyvox (Linezolid) 600 Mg Tablet 600 Mg PO BID 30 Days Hydrocodone-Apap 5-325 (Hydrocodone Bit/Acetaminophen) 1 Tab Tablet 1 Tab PO PRN Q4HRS PRN 30 Days Aspirin Ec (Aspirin) 81 Mg Tablet.dr 81 Mg PO DAILYWBKFT 30 Days [Pantoprazole] 40 MG Tablet.dr 40 Mg PO DAILYAC 30 Days Humalog (Insulin Lispro) 100 Unit/1 Ml Insuln.pen 0 Units SQ TIDWMEALS 30 Days BG 150-199= 1 units 200-299= 2 units 300-399= 4 units 400-499= 6 units ac tid sliding scale Culturelle (Lactobacillus Rhamnosus Gg) 1 Each Cap.sprink 1 Cap PO BID 30 Days Tylenol (Acetaminophen) 325 Mg Tablet 325 Mg PO PRN Q4HRS PRN 30 Days Carvedilol (Carvedilol) 3.125 Mg Tablet 3.125 Mg PO BIDWMEALS 30 Days Renvela (Sevelamer Carbonate) 800 Mg Tablet 800 Mg PO TIDWMEALS 30 Days Pantoprazole Sodium 40 Mg Tablet.dr 40 Mg PO DAILYAC 30 Days Krista-Beatriz Tablet (Folic Acid/Vitamin B Comp W-C) 0.8 Mg Tablet 1 Tab PO DAILY 30 Days Reported Vitamin B-12 (Cyanocobalamin (Vitamin B-12)) 1,000 Mcg Tablet 1 Tab PO DAILY Allopurinol 100 Mg Tablet 1 Tab PO DAILY Renal Caps Softgel (Folic Acid/Vitamin B Comp W-C) 1 Mg Capsule 1 Cap PO DAILY Acidophilus Lactobacilli (Lactobacillus Acidophilus) 1 Each Capsule 1 Each PO BID Protonix (Pantoprazole Sodium) 20 Mg Tablet. 40 Mg PO DAILY Renvela (Sevelamer Carbonate) 800 Mg Tablet 800 Mg PO TIDWMEALS Lyrica (Pregabalin) 50 Mg Capsule 50 Mg PO HS Tylenol (Acetaminophen) 325 Mg Tablet 1 Tab PO PRN Q4HRS Hydrocodone-Apap 5-325 (Hydrocodone Bit/Acetaminophen) 1 Tab Tablet 1 Tab PO PRN Q4HRS PRN Aspirin 81 Mg Tab.chew 81 Mg PO DAILY Carvedilol (Carvedilol) 3.125 Mg Tablet 3.125 Mg PO BIDWMEALS Lipitor (Atorvastatin Calcium) 40 Mg Tablet 40 Mg PO HS Clopidogrel (Clopidogrel Bisulfate) 75 Mg Tablet 75 Mg PO DAILY Vitamin D (Cholecalciferol (Vitamin D3)) 2,000 Unit Capsule 1 Cap PO DAILY Dexter 5-325 Tablet (Acetaminophen/Hydrocodone Bitart) 1 Each Tablet 1 Tab PO PRN Q4HRS PRN Lyrica (Pregabalin) 50 Mg Capsule 25 Mg PO HS Clopidogrel (Clopidogrel Bisulfate) 75 Mg Tablet 1 Tab PO DAILY Atorvastatin Calcium 40 Mg Tablet 40 Mg PO HS Allopurinol 100 Mg Tablet 1 Tab PO DAILY Vitamin B-12 (Cyanocobalamin (Vitamin B-12)) 1,000 Mcg Tablet 1 Tab PO DAILY Vitamin D-3 (Cholecalciferol (Vitamin D3)) 2,000 Unit Capsule 1,000 Unit PO DAILY Vitals/I & O Vital Sign - Last 24 Hours 12/06/18 12/06/18 12/06/18 12/06/18 11:00 15:00 17:17 19:53 Temp 98.6 98.4 98.6 98.4 Pulse 60 60 60 Resp 20 20 B/P (MAP) 106/59 (75) 119/61 (80) 98/53 Pulse Ox 97 97 97 O2 Delivery Room Air Room Air Room Air 12/06/18 12/06/18 12/06/18 12/07/18 19:56 20:00 23:18 03:37 Temp 99.0 98.5 98.6 99.0 98.5 98.6 Pulse 60 60 62 Resp 18 18 16 B/P (MAP) 92/41 (58) 104/57 (73) 97/52 (67) Pulse Ox 95 96 98 O2 Delivery Room Air Room Air Room Air Room Air 12/07/18 12/07/18 12/07/18 12/07/18 06:50 07:00 07:30 08:36 Temp 98.2 98.2 Pulse 60 Resp 18 B/P (MAP) 105/61 (76) Pulse Ox 98 96 96 O2 Delivery Room Air Room Air Room Air Room Air 12/07/18 08:36 Pulse 60 B/P (MAP) 105/61 Intake and Output 12/06/18 12/06/18 12/07/18 15:01 23:01 07:01 Intake Total 810 ml 300 ml 100 ml Balance 810 ml 300 ml 100 ml KIMI TIDWELL MD Dec 07, 2018 10:05
--- NOTE | 2018-12-07 10:18 | PDOC ---
Subjective: Subjective: Vomited while eating breakfast today, feels better now. Objective: Vital Signs: Vital Signs Date Time Temp Pulse Resp B/P (MAP) Pulse Ox O2 Delivery O2 Flow Rate FiO2 12/07/18 08:36 60 105/61 12/07/18 08:36 96 Room Air 12/07/18 07:00 98.2 18 98.2 Labs: Laboratory Tests Test 12/06/18 12:08 12/06/18 16:56 12/07/18 06:00 12/07/18 07:21 Glucose (Fingerstick) 168 mg/dL 189 mg/dL 131 mg/dL White Blood Count 8.4 x10^3/uL Red Blood Count 2.32 x10^6/uL Hemoglobin 7.3 g/dL Hematocrit 21.1 % Mean Corpuscular Volume 91 fL Mean Corpuscular Hemoglobin 31 pg Mean Corpuscular Hemoglobin Concent 35 g/dL Red Cell Distribution Width 17.6 % Platelet Count 179 x10^3/uL Neutrophils (%) (Auto) 63 % Lymphocytes (%) (Auto) 18 % Monocytes (%) (Auto) 8 % Eosinophils (%) (Auto) 11 % Basophils (%) (Auto) 1 % Neutrophils # (Auto) 5.3 x10^3uL Lymphocytes # (Auto) 1.5 x10^3/uL Monocytes # (Auto) 0.7 x10^3/uL Eosinophils # (Auto) 1.0 x10^3/uL Basophils # (Auto) 0.0 x10^3/uL Sodium Level 138 mmol/L Potassium Level 4.8 mmol/L Chloride Level 100 mmol/L Carbon Dioxide Level 29 mmol/L Anion Gap 9 Blood Urea Nitrogen 58 mg/dL Creatinine 8.9 mg/dL Estimated GFR (Cockcroft-Gault) 7.0 BUN/Creatinine Ratio 7 Glucose Level 150 mg/dL Calcium Level 8.4 mg/dL Total Bilirubin 0.3 mg/dL Aspartate Amino Transf (AST/SGOT) 23 U/L Alanine Aminotransferase (ALT/SGPT) 16 U/L Alkaline Phosphatase 191 U/L Creatine Kinase 25 U/L Total Protein 6.1 g/dL Albumin 2.2 g/dL Albumin/Globulin Ratio 0.6 PE: GEN: NAD, was asleep LUNGS: CTAB HEART: RRR ABD: S/ND/NT NEURO/PSYCH: A & O �3 A/P: S/p right toe amputations N/v - recurred this morning, on Reglan tabs TIDAC + PPI QD -- Will review w/ Dr. Ty. KARLA WATT Dec 07, 2018 10:17
--- NOTE | 2018-12-07 10:30 | NUR ---
Wound Care Pt seen for wound care follow up with Dr. Byers, see wound assessments. R foot vac dressing removed, wounds cleaned and assessed. R second toe open amputation site is now contiguous with previous 1st metatarsal open amputation, wound bed is mostly beefy red and granulated, bone exposed in the base of both tunnels with a small amount of dusky tissue at the distal wound edge. Dr. Byers pleased, ordered to continue current wound vac and we will reevaluate on Wednesday. Periwound skin prepped, ostomy ring applied, 3 pieces of silver foam placed into tunnels and wound bed, vac showing strong seal at -125 continuous suction, pt tolerated with minimal pain. R lateral ankle and L 2nd toe wounds cleaned and redressed with xeroform gauze, gauze and kerlix. INDEPENDENT LIVING SPECIALIST at bedside to give pt a bath.
[2018-12-07 10:58] VITALS: BP 108/60
--- NOTE | 2018-12-07 11:32 | PDOC ---
Provider Note Provider Note AF VSS awake and alert right foot wound VAC removed, the open 1st/2nd toe amputation wound is clean with no necrotic tissue, tissue pink lateral foot wound clean A/P POD#2 right 1st toe open amputation debridement and amputation of the right 2nd toe - continue wound care and VAC dressing - antibiotics per ID SITA ENRIQUEZ MD Dec 07, 2018 11:32
[2018-12-07] MEDS: METOCLOPRAMIDE ORAL SOLN 10 MG/10 ML SOLUTION. PO SCH ×3 (12:13→21:54)
--- NOTE | 2018-12-07 14:37 | PDOC ---
Renal-Progress Notes Subjective Notes Notes NONE History of Present Illness Hx of present illness STABLE Vitals Vitals Vital Signs Date Time Temp Pulse Resp B/P (MAP) Pulse Ox O2 Delivery O2 Flow Rate FiO2 12/07/18 11:56 99 Room Air 12/07/18 10:58 97.9 60 20 108/60 (76) 97.9 Weight Weight [ ] I.O. Intake and Output Intake and Output 12/07/18 07:01 Intake Total 1210 ml Balance 1210 ml Intake Oral 1210 ml Labs Labs Laboratory Tests Test 12/06/18 16:56 12/07/18 06:00 12/07/18 07:21 12/07/18 11:10 Glucose (Fingerstick) 189 mg/dL (70-99) 131 mg/dL (70-99) 181 mg/dL (70-99) White Blood Count 8.4 x10^3/uL (4.0-11.0) Red Blood Count 2.32 x10^6/uL (4.30-5.70) Hemoglobin 7.3 g/dL (13.0-17.5) Hematocrit 21.1 % (39.0-53.0) Mean Corpuscular Volume 91 fL (79-100) Mean Corpuscular Hemoglobin 31 pg (25-35) Mean Corpuscular Hemoglobin Concent 35 g/dL (31-37) Red Cell Distribution Width 17.6 % (11.5-14.5) Platelet Count 179 x10^3/uL (140-400) Neutrophils (%) (Auto) 63 % (31-73) Lymphocytes (%) (Auto) 18 % (24-48) Monocytes (%) (Auto) 8 % (0-9) Eosinophils (%) (Auto) 11 % (0-3) Basophils (%) (Auto) 1 % (0-3) Neutrophils # (Auto) 5.3 x10^3uL (1.8-7.7) Lymphocytes # (Auto) 1.5 x10^3/uL (1.0-4.8) Monocytes # (Auto) 0.7 x10^3/uL (0.0-1.1) Eosinophils # (Auto) 1.0 x10^3/uL (0.0-0.7) Basophils # (Auto) 0.0 x10^3/uL (0.0-0.2) Sodium Level 138 mmol/L (136-145) Potassium Level 4.8 mmol/L (3.5-5.1) Chloride Level 100 mmol/L (98-107) Carbon Dioxide Level 29 mmol/L (21-32) Anion Gap 9 (6-14) Blood Urea Nitrogen 58 mg/dL (8-26) Creatinine 8.9 mg/dL (0.7-1.3) Estimated GFR (Cockcroft-Gault) 7.0 BUN/Creatinine Ratio 7 (6-20) Glucose Level 150 mg/dL (70-99) Calcium Level 8.4 mg/dL (8.5-10.1) Total Bilirubin 0.3 mg/dL (0.2-1.0) Aspartate Amino Transf (AST/SGOT) 23 U/L (15-37) Alanine Aminotransferase (ALT/SGPT) 16 U/L (16-63) Alkaline Phosphatase 191 U/L (46-116) Creatine Kinase 25 U/L (39-308) Total Protein 6.1 g/dL (6.4-8.2) Albumin 2.2 g/dL (3.4-5.0) Albumin/Globulin Ratio 0.6 (1.0-1.7) Review of Systems Constitutional: yes: alert, oriented Ears/Nose/Throat: Yes: no symptom reported Eyes: Yes: no symptom reported Pulmonary: Yes no symptom reported Cardiovascular: Yes no symptom reported Gastrointestional: Yes: no symptom reported Genitourinary: Yes: no symptom reported Musculoskeletal: Yes: no symptom reported Skin: Yes no symptom reported Psychiatric/Neurological: Yes: no symptom reported Endocrine: Yes: no symptom reported Physical Exam General Appearance: no apparent distress Skin: warm Respiratory: bilateral CTA Heart: S1S2, RRR Abdomen: soft Genitourinary: no mass Extremities: pulses present Assessment Assessment IMP ESRD DM II ANEMIA HTN RIGHT TOE WOUND-S/P AMP PLAN HD TODAY UF TO [facility] CHAITANYA HILARIO MD Dec 07, 2018 14:37
[2018-12-07 14:59] VITALS: BP 92/54
--- NOTE | 2018-12-07 15:09 | PATHOLOGY ---
[facility] Accession Number: [id number] . 01 Material submitted: . RIGHT SECOND TOE AMPUTATION . 01 Clinical history: . Right second toe necrotic tissue . 02 Diagnosis: Right second toe amputation: - Focal ulceration, necrosis, and acute cellulitis of proximal medial and dorsal medial toe. . (JPM:mm; 12/07/2018) [facility]/12/07/2018 . 02 Comment: There is no evidence of osteomyelitis identified. . (JPM:mm; 12/07/2018) . 02 Electronically signed: . Farhat Mccurdy MD, Pathologist NPI- [id number] . 01 Gross description: . Received in formalin labeled "Keo Gaxiola Jr, right second toe amputation," is a digit amputation specimen measuring 7.9 x 3.6 x 2.1 cm in greatest dimensions. The bone margin is jagged in appearance. A possible nail plate is present in the nailbed that is thickened, granular and yellow-gaitan in appearance. The proximal medial aspect epidermal surface displays a gaitan-brown ulcerative area measuring 2.7 x 2.3 cm that extends to the soft tissue margin. A separate ulcerative lesion is noted on the dorsal medial epidermal surface, measuring 0.5 x 0.3 cm and extending to within 1.4 cm of the nearest soft tissue margin. The bone and soft tissue margins are inked black. A full-thickness cross-section is submitted proximal-distal in cassettes A1 through A4, following decalcification. Additional energy conservation representative sections of the epidermal surface ulcerative lesions are submitted in cassette A5. ([facility]; 12/06/2018) XDC/XDC . 02 Pathologist provided ICD-10: L97.519, I96, L03.031 . 02 CPT . 283125, 478522 Specimen Comment: A courtesy copy of this report has been sent to Specimen Comment: [phone], . Specimen Comment: Report sent to / DR TIDWELL Specimen Comment: A duplicate report has been generated due to demographic updates. Performed at: 01 [facility] [address] [facility] [address], [place] [id number] MD Alfredo Smith MD Phone: [phone] [facility]formed at: [facility] [address] [place], [place] [id number] MD Farhat Mccurdy MD Phone: [phone]
--- NOTE | 2018-12-07 15:56 | NUR ---
SS following up with discharge planning. BCBS denied pt for [facility]. [facility] notified and pursuing authorization and BCBS carve out for IV antibiotics. SS will await insurance determination and will proceed accordingly.
[2018-12-07] MEDS: DAPTOMYCIN IV SCH (16:15)
[2018-12-07] MEDS: NORMAL SALINE IV SCH (16:15)
[2018-12-07] MEDS ORDERED: IV NORMAL SALINE 1000ML BAG 1,000 ML IV PRN ×2 (16:46)
[2018-12-07] MEDS ORDERED: DIALYSIS PATIENT. MC PRN (17:00)
[2018-12-07] MEDS: MEROPENEM 500 MG in IV NORMAL SALINE 50ML 50 ML IV SCH (17:26)
[2018-12-07 17:32] VITALS: BP 127/60
[2018-12-07] MEDS: DARBEPOETIN ALFA 100 MCG/0.5 ML DISP.SYRIN. SQ SCH (21:54)
[2018-12-07] MEDS: PREGABALIN 25 MG CAPSULE PO SCH (21:54)
[2018-12-07] MEDS: ATORVASTATIN CALCIUM 40 MG TABLET. PO SCH (21:54)
[2018-12-07 22:34] VITALS: BP 135/79
[2018-12-08 03:00] VITALS: BP 144/60
[2018-12-08] MEDS: HYDROcodone/APAP 5/325MG 1 TAB TABLET PO PRN ×4 (04:01→23:05)
[2018-12-08 07:00] VITALS: BP 123/74
--- NOTE | 2018-12-08 07:22 | PDOC ---
Infectious Disease Note Subjective Subjective Doing well. Doing ok pain ok denies any n/v/d/abdo pain/rash or generalized aches awaiting placement Vital Sign Vital Signs Vital Signs Date Time Temp Pulse Resp B/P (MAP) Pulse Ox O2 Delivery O2 Flow Rate FiO2 12/08/18 05:01 90 Room Air 12/08/18 03:00 98.1 60 20 144/60 (88) 98.1 12/07/18 22:34 3.0 Physical Exam PHYSICAL EXAM GENERAL: NAD - in bed - looks well HEENT: Oral cavity clear NECK: Supple. LUNGS: Clear HEART: S1, S2 ABDOMEN: Soft, NT, BS present - obese EXTREMITIES: Trace edema; right foot with vac in place AV fistula NEUROLOGIC: Alert and oriented SKIN: No rash Right SCL (11/10) clean Labs Lab Laboratory Tests Test 12/07/18 11:10 12/07/18 16:35 12/07/18 21:50 Glucose (Fingerstick) 181 mg/dL (70-99) 157 mg/dL (70-99) 130 mg/dL (70-99) Objective Assessment Recent 1 st toe amp with developing gangrene, s/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 (h/o MSSA, Enterobacter and VRE). ESR 90 S/p Right first toe open ray amputation wound debridement with amputation of his second toe including excision of the metatarsal head and proximal and mid metatarsal bone 12/05. Right foot wound VAC dressing. Right lateral malleolus wound s/p sharp excisional debridement removing necrotic subcutaneous tissue, 11/02. -11/02. Enterobacter aerogenes, Cipro sensitive, VRE (linezolid & Dapto sensistive; PCN resistent) and Gram variable nuria not ID. Ck 25 on 12/07 PAD s/p angio 11/03. ESRD/HD Diarrhea/loose stools. C. diff pending Thrombocytopenia - on Zyvox Plan Plan of Care Consult IR to change or replace central line to change subclavian or place IJ PICC if possible Discharging to [facility] when can be arranged however have issues with cost of Daptomycin Zyvox causes issue with Thrombocytopenia so not an option Continue Dapto and meropenem for min 4 weeks Rx written When ready for dc home Every Wednesday CBC, ESR, CPK.cmp Fax results to [phone] f/u appt with us in 1-2 weeks f/u with vascular as directed HBO therapy - wound care team following D/W RN D/w Dr. Byers 12/05 JAYY SUÁREZ MD Dec 08, 2018 07:22
[2018-12-08] MEDS: INSULIN LISPRO 300 UNITS/3 ML INSULN.PEN. SQ SCH ×3 (08:00→17:50)
[2018-12-08] MEDS: FOLIC/VIT B COMP W-C (RENAL) TABLET. PO SCH (09:08)
[2018-12-08] MEDS: CLOPIDOGREL BISULFATE 75 MG TABLET PO SCH (09:08)
[2018-12-08] MEDS: CYANOCOBALAMIN (VITAMIN B-12) 1,000 MCG TABLET. PO SCH (09:08)
[2018-12-08] MEDS: LACTOBACILLUS RHAMNOSUS GG 1 CAPSULE. PO SCH ×2 (09:08→21:04)
[2018-12-08] MEDS: ALLOPURINOL 100 MG TABLET. PO SCH (09:09)
[2018-12-08] MEDS: ASPIRIN CHEWABLE 81 MG TABLET. PO SCH (09:09)
[2018-12-08] MEDS: PANTOPRAZOLE 40 MG TABLET.DR. PO SCH (09:09)
[2018-12-08] MEDS: CHOLECALCIFEROL (VITAMIN D3) 1,000 UNIT TABLET PO SCH (09:09)
[2018-12-08] MEDS: SEVELAMER CARBONATE 800 MG TABLET. PO SCH ×3 (09:09→17:42)
[2018-12-08] MEDS: ONDANSETRON ODT 4 MG TAB.RAPDIS. PO SCH ×3 (09:09→17:42)
[2018-12-08] MEDS: CARVEDILOL 3.125 MG TABLET. PO SCH ×2 (09:10→17:44)
[2018-12-08] MEDS: METOCLOPRAMIDE ORAL SOLN 10 MG/10 ML SOLUTION. PO SCH ×4 (09:10→21:04)
[2018-12-08] MEDS: COLLAGENASE 250 UNIT/GM TOPICAL OINTMENT 30GM TUBE. TP SCH (09:11)
[2018-12-08] MEDS: NYSTATIN TOPICAL POWDER 15GM BOTTLE. TP SCH ×2 (09:11→21:00)
--- NOTE | 2018-12-08 09:57 | PDOC ---
PROGRESS NOTES Subjective Subjective feels well comfortable. no nausea or vomiting Objective Objective Vital Signs Date Time Temp Pulse Resp B/P (MAP) Pulse Ox O2 Delivery O2 Flow Rate FiO2 12/08/18 09:10 60 123/74 12/08/18 07:27 Room Air 12/08/18 07:00 98.0 20 100 2.0 98.0 Intake and Output 12/08/18 07:01 Intake Total 720 ml Output Total 150 ml Balance 570 ml Intake Oral 720 ml Output Urine Total 150 ml # Bowel Movements 1 Physical Exam Abdomen: Soft, Other (obese) Heart: Normal S1, Normal S2 Extremities: No edema, Other (wound vac right foot with dry dressing) General: Alert HEENT: Atraumatic Lungs: Clear to auscultation Neuro: Normal gait Psych/Mental Status: Mental status NL Skin: No rashes Assessment Assessment necrotic right foot wound debridement of right first ray and 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 suspect due to zyvox. will avoid heparin products nausea and vomiting . improved anemia of chronic disease Plan Plan of Care wound care and wound vac continue iv daptomycin and meropenem hemodialysis and lab tomorrow continue zofran and metoclopramide awaiting SNF placement Comment Review of Relevant I have reviewed the following items simeon (where applicable) has been applied. Labs Laboratory Tests Test 12/06/18 12:08 12/06/18 16:56 12/07/18 06:00 12/07/18 07:21 Glucose (Fingerstick) 168 mg/dL (70-99) 189 mg/dL (70-99) 131 mg/dL (70-99) White Blood Count 8.4 x10^3/uL (4.0-11.0) Red Blood Count 2.32 x10^6/uL (4.30-5.70) Hemoglobin 7.3 g/dL (13.0-17.5) Hematocrit 21.1 % (39.0-53.0) Mean Corpuscular Volume 91 fL (79-100) Mean Corpuscular Hemoglobin 31 pg (25-35) Mean Corpuscular Hemoglobin Concent 35 g/dL (31-37) Red Cell Distribution Width 17.6 % (11.5-14.5) Platelet Count 179 x10^3/uL (140-400) Neutrophils (%) (Auto) 63 % (31-73) Lymphocytes (%) (Auto) 18 % (24-48) Monocytes (%) (Auto) 8 % (0-9) Eosinophils (%) (Auto) 11 % (0-3) Basophils (%) (Auto) 1 % (0-3) Neutrophils # (Auto) 5.3 x10^3uL (1.8-7.7) Lymphocytes # (Auto) 1.5 x10^3/uL (1.0-4.8) Monocytes # (Auto) 0.7 x10^3/uL (0.0-1.1) Eosinophils # (Auto) 1.0 x10^3/uL (0.0-0.7) Basophils # (Auto) 0.0 x10^3/uL (0.0-0.2) Sodium Level 138 mmol/L (136-145) Potassium Level 4.8 mmol/L (3.5-5.1) Chloride Level 100 mmol/L (98-107) Carbon Dioxide Level 29 mmol/L (21-32) Anion Gap 9 (6-14) Blood Urea Nitrogen 58 mg/dL (8-26) Creatinine 8.9 mg/dL (0.7-1.3) Estimated GFR (Cockcroft-Gault) 7.0 BUN/Creatinine Ratio 7 (6-20) Glucose Level 150 mg/dL (70-99) Calcium Level 8.4 mg/dL (8.5-10.1) Total Bilirubin 0.3 mg/dL (0.2-1.0) Aspartate Amino Transf (AST/SGOT) 23 U/L (15-37) Alanine Aminotransferase (ALT/SGPT) 16 U/L (16-63) Alkaline Phosphatase 191 U/L (46-116) Creatine Kinase 25 U/L (39-308) Total Protein 6.1 g/dL (6.4-8.2) Albumin 2.2 g/dL (3.4-5.0) Albumin/Globulin Ratio 0.6 (1.0-1.7) Test 12/07/18 11:10 12/07/18 16:35 12/07/18 21:50 12/08/18 07:24 Glucose (Fingerstick) 181 mg/dL (70-99) 157 mg/dL (70-99) 130 mg/dL (70-99) 127 mg/dL (70-99) Laboratory Tests Test 12/07/18 11:10 12/07/18 16:35 12/07/18 21:50 12/08/18 07:24 Glucose (Fingerstick) 181 mg/dL (70-99) 157 mg/dL (70-99) 130 mg/dL (70-99) 127 mg/dL (70-99) Medications Current Medications Acetaminophen (Tylenol) 325 mg PRN Q4HRS PRN PO MILD PAIN / TEMP Last administered on 12/03/18 00:58; Start 11/24/18 at 20:30 Allopurinol (Zyloprim) 100 mg DAILY PO Last administered on 12/08/18 09:09; Start 11/25/18 at 09:00 Aspirin (Children'S Aspirin) 81 mg DAILY PO Last administered on 12/08/18 09: 09; Start 11/25/18 at 09:00 Atorvastatin Calcium (Lipitor) 40 mg HS PO Last administered on 12/07/18 21:54 ; Start 11/24/18 at 21:00 Carvedilol (Coreg) 3.125 mg BIDWMEALS PO Last administered on 11/29/18 18:49; Start 11/24/18 at 21:00; Stop 11/30/18 at 10:19; Status DC Vitamin D (Vitamin D3) 1,000 unit DAILY PO Last administered on 12/08/18 09:09 ; Start 11/25/18 at 09:00 Clopidogrel Bisulfate (Plavix) 75 mg DAILY PO Last administered on 12/08/18 09 :08; Start 11/25/18 at 09:00 Cyanocobalamin (Vitamin B-12) 1,000 mcg DAILY PO Last administered on 09:08; Start 11/25/18 at 09:00 Acetaminophen/ Hydrocodone Bitart (Lortab 5/325) 1 tab PRN Q4HRS PRN PO MODERATE - SEVERE PAIN Last administered on 11/29/18 20:52; Start 11/24/18 at 20:30; Stop 11/30/18 at 11:04; Status DC Pregabalin (Lyrica) 50 mg HS PO Last administered on 11/30/18 20:18; Start at 21:00; Stop 12/01/18 at 12:12; Status DC Sevelamer Carbonate (Renvela) 800 mg TIDWMEALS PO Last administered on 09:09; Start 11/25/18 at 08:00 Vitamin B Complex/ Vitamin C (Krista-Beatriz) 1 tab DAILY PO Last administered on 09:08; Start 11/25/18 at 09:00 Lactobacillus Rhamnosus (Culturelle) 1 cap BID PO Last administered on 09:08; Start 11/24/18 at 21:00 Pantoprazole Sodium (Protonix) 40 mg DAILYAC PO Last administered on 12/08/18 09:09; Start 11/25/18 at 07:30 Insulin Human Lispro (HumaLOG) 0-5 UNITS TIDWMEALS SQ ; Start 11/24/18 at 21:00 ; Stop 11/24/18 at 21:57; Status DC Dextrose (Dextrose 50%-Water Syringe) 12.5 gm PRN Q15MIN PRN IV SEE COMMENTS; Start 11/24/18 at 20:45 Insulin Human Lispro (HumaLOG) 0-5 UNITS TIDWMEALS SQ ; Start 11/25/18 at 08:00 ; Stop 11/25/18 at 08:00; Status DC Insulin Human Lispro (HumaLOG) 0-5 UNITS BG 300-39... TIDWMEALS SQ Last administered on 12/07/18 17:49; Start 11/25/18 at 08:00 Collagenase (Santyl) 1 judi DAILY TP Last administered on 12/08/18 09:11; Start 11/25/18 at 10:00 Meropenem 500 mg/ Sodium Chloride 50 ml @ 100 mls/hr Q12HR IV ; Start at 21:00; Status UNV Daptomycin 690 mg/ Sodium Chloride 50 ml @ 100 mls/hr MoWeFr@1600 IV Last administered on 12/07/18 16:15; Start 11/25/18 at 16:00 Heparin Sodium (Porcine) (Heparin Sodium) 5,000 unit Q12HR SQ Last administered on 11/27/18at 20:28; Start 11/25/18 at 21:00; Stop 11/28/18 at 09 :44; Status DC Meropenem 500 mg/ Sodium Chloride 50 ml @ 100 mls/hr DAILY16 IV Last administered on 12/07/18at 17:26; Start 11/25/18 at 16:00 Linezolid (Zyvox) 600 mg BID PO Last administered on 11/28/18at 08:48; Start 11/25/18 at 11:00; Stop 11/28/18 at 10:04; Status DC Info (PHARMACY MONITORING -- do not chart) 1 each PRN DAILY PRN MC SEE COMMENTS ; Start 11/25/18 at 10:45; Stop 11/28/18 at 17:07; Status DC Sodium Chloride 1,000 ml @ 1,000 mls/hr Q1H PRN IV hypotension; Start at 14:30; Stop 11/25/18 at 20:30; Status DC Sodium Chloride 1,000 ml @ 400 mls/hr Q2H30M PRN IV PATENCY; Start 11/25/18 at 14:30; Stop 11/25/18 at 20:30; Status DC Info (PHARMACY MONITORING -- do not chart) 1 each PRN DAILY PRN MC SEE COMMENTS ; Start 11/25/18 at 14:45; Status UNV Info (PHARMACY MONITORING -- do not chart) 1 each PRN DAILY PRN MC SEE COMMENTS ; Start 11/25/18 at 14:45; Status UNV Ondansetron HCl (Zofran Odt) 4 mg PRN Q6HRS PRN PO NAUSEA/VOMITING Last administered on 12/01/18at 07:30; Start 11/27/18 at 02:15 Magnesium Sulfate 50 ml @ 25 mls/hr PRN DAILY PRN IV for Mag < 1.7 on am labs; Start 11/27/18 at 14:00 Sodium Chloride 1,000 ml @ 1,000 mls/hr Q1H PRN IV hypotension; Start at 09:05; Stop 11/28/18 at 15:04; Status DC Albumin Human 200 ml @ 200 mls/hr 1X PRN PRN IV Hypotension; Start 11/28/18 at 09:15; Stop 11/28/18 at 15:14; Status DC Sodium Chloride 1,000 ml @ 400 mls/hr Q2H30M PRN IV PATENCY; Start 11/28/18 at 09:05; Stop 11/28/18 at 21:04; Status DC Info (PHARMACY MONITORING -- do not chart) 1 each PRN DAILY PRN MC SEE COMMENTS ; Start 11/28/18 at 09:15; Stop 11/28/18 at 17:07; Status DC Info (PHARMACY MONITORING -- do not chart) 1 each PRN DAILY PRN MC SEE COMMENTS ; Start 11/28/18 at 09:15; Stop 12/02/18 at 15:15; Status DC Sodium Chloride 1,000 ml @ 1,000 mls/hr Q1H PRN IV hypotension; Start 11/29/18 at 16:30; Stop 11/29/18 at 23:00; Status DC Info (PHARMACY MONITORING -- do not chart) 1 each PRN DAILY PRN MC SEE COMMENTS ; Start 11/29/18 at 16:45; Status UNV Info (PHARMACY MONITORING -- do not chart) 1 each PRN DAILY PRN MC SEE COMMENTS ; Start 11/29/18 at 16:45; Status UNV Info (PHARMACY MONITORING -- do not chart) 1 each PRN DAILY PRN MC SEE COMMENTS ; Start 11/30/18 at 08:30 Magnesium Sulfate 50 ml @ 25 mls/hr 1X ONCE IV Last administered on 11/30/18at 10:44; Start 11/30/18 at 10:00; Stop 11/30/18 at 11:59; Status DC Darbepoetin Reinaldo (Aranesp) 100 mcg WEEKLYHS SQ Last administered on 12/07/18at 21 :54; Start 11/30/18 at 21:00 Tramadol HCl (Ultram) 25 mg PRN Q6HRS PRN PO MODERATE PAIN Last administered on 11/30/18at 23:44; Start 11/30/18 at 11:00; Stop 12/01/18 at 12:12; Status DC Nystatin (Nystop) 1 judi BID TP Last administered on 12/08/18at 09:11; Start 11/30 at 12:00 Sodium Chloride 1,000 ml @ 1,000 mls/hr Q1H PRN IV hypotension; Start 11/30/18 at 10:00; Stop 11/30/18 at 16:30; Status DC Albumin Human 200 ml @ 200 mls/hr 1X PRN PRN IV Hypotension; Start 11/30/18 at 10:00; Stop 11/30/18 at 16:30; Status DC Albumin Human 200 ml @ 100 mls/hr 1X ONCE IV Last administered on 11/30/18at 16 :45; Start 11/30/18 at 16:45; Stop 11/30/18 at 18:44; Status DC Albumin Human 500 ml @ 125 mls/hr Q4H IV Last administered on 12/01/18at 17:22; Start 12/01/18 at 12:00; Stop 12/01/18 at 19:59; Status DC Pregabalin (Lyrica) 25 mg HS PO Last administered on 12/07/18at 21:54; Start 12/01 at 21:00 Ondansetron HCl (Zofran Odt) 4 mg TIDAC PO Last administered on 12/08/18at 09:09 ; Start 12/01/18 at 16:30 Metoclopramide HCl (Reglan) 5 mg TIDACHC PO Last administered on 12/07/18at 08:35 ; Start 12/01/18 at 16:30; Stop 12/07/18 at 11:01; Status DC Acetaminophen/ Hydrocodone Bitart (Lortab 5/325) 0.5 tab PRN Q4HRS PRN PO MODERATE PAIN Last administered on 12/08/18at 04:01; Start 12/01/18 at 12:30 Sodium Chloride 1,000 ml @ 1,000 mls/hr Q1H PRN IV hypotension; Start 12/02/18 at 08:27; Stop 12/02/18 at 14:26; Status DC Albumin Human 200 ml @ 200 mls/hr 1X PRN PRN IV Hypotension; Start 12/02/18 at 08:30; Stop 12/02/18 at 14:29; Status DC Sodium Chloride 1,000 ml @ 400 mls/hr Q2H30M PRN IV PATENCY; Start 12/02/18 at 08:27; Stop 12/02/18 at 20:26; Status DC Info (PHARMACY MONITORING -- do not chart) 1 each PRN DAILY PRN MC SEE COMMENTS ; Start 12/02/18 at 08:30; Status UNV Info (PHARMACY MONITORING -- do not chart) 1 each PRN DAILY PRN MC SEE COMMENTS ; Start 12/02/18 at 08:30; Status UNV Ondansetron HCl (Zofran) 4 mg PRN Q6HRS PRN IV NAUSEA/VOMITING; Start 12/05/18 at 07:00; Stop 12/06/18 at 06:59; Status DC Morphine Sulfate (Morphine Sulfate) 1 mg PRN Q10MIN PRN IV SEVERE PAIN Last administered on 12/05/18at 09:39; Start 12/05/18 at 07:00; Stop 12/05/18 at 18:00; Status DC Ringer's Solution 1,000 ml @ 30 mls/hr Q24H IV ; Start 12/05/18 at 07:00; Stop 12/05/18 at 18:59; Status DC Lidocaine HCl (Xylocaine-Mpf 1% 2ml Vial) 2 ml PRN 1X PRN ID PRIOR TO IV START ; Start 12/05/18 at 07:00; Stop 12/05/18 at 07:01; Status DC Hydromorphone HCl (Dilaudid) 0.5 mg PRN Q10MIN PRN IV SEV PAIN, Second choice; Start 12/05/18 at 07:00; Stop 12/06/18 at 06:59; Status DC Carvedilol (Coreg) 3.125 mg BIDWMEALS PO Last administered on 12/08/18at 09:10; Start 12/03/18 at 08:00 Sodium Chloride 500 ml @ 30 mls/hr [id number] IV Last administered on 12/05/18at 11 :05; Start 12/05/18 at 06:30; Stop 12/06/18 at 06:29; Status DC Cefazolin Sodium 1 gm/Sodium Chloride 500 ml @ 500 mls/hr 1X ONCE IRR Last administered on 12/05/18at 07:45; Start 12/05/18 at 08:00; Stop 12/05/18 at 08:59; Status DC Sevoflurane (Ultane) 30 ml STK-MED ONCE IH ; Start 12/05/18 at 07:15; Stop at 07:16; Status DC Fentanyl Citrate (Fentanyl 2ml Vial) 100 mcg STK-MED ONCE .ROUTE ; Start at 07:15; Stop 12/05/18 at 07:17; Status DC Propofol 20 ml @ As Directed STK-MED ONCE IV ; Start 12/05/18 at 07:15; Stop 12/05 at 07:17; Status DC Lidocaine HCl (Lidocaine Pf 2% Vial) 5 ml STK-MED ONCE .ROUTE ; Start 12/05/18 at 07:15; Stop 12/05/18 at 07:17; Status DC Dexamethasone Sodium Phosphate (Decadron) 20 mg STK-MED ONCE .ROUTE ; Start 12/05 at 07:15; Stop 12/05/18 at 07:17; Status DC Ondansetron HCl (Zofran) 4 mg STK-MED ONCE .ROUTE ; Start 12/05/18 at 07:15; Stop 12/05/18 at 07:17; Status DC Lidocaine HCl 20 ml STK-MED ONCE .ROUTE ; Start 12/05/18 at 07:33; Stop 12/05/18 at 07:34; Status DC Cellulose (Surgicel Fibrillar 1x2) 1 each STK-MED ONCE .ROUTE ; Start 12/05/18 at 07:33; Stop 12/05/18 at 07:34; Status DC Phenylephrine HCl (PHENYLEPHRINE in 0.9% NACL PF) 1 mg STK-MED ONCE IV ; Start 12/05/18 at 07:56; Stop 12/05/18 at 07:58; Status DC Sodium Chloride 1,000 ml @ 1,000 mls/hr Q1H PRN IV hypotension; Start 12/05/18 at 08:31; Stop 12/05/18 at 14:30; Status DC Albumin Human 200 ml @ 200 mls/hr 1X PRN PRN IV Hypotension; Start 12/05/18 at 08:45; Stop 12/05/18 at 14:44; Status DC Sodium Chloride 1,000 ml @ 400 mls/hr Q2H30M PRN IV PATENCY Last administered on 12/05/18at 11:04; Start 12/05/18 at 08:31; Stop 12/05/18 at 20:30; Status DC Info (PHARMACY MONITORING -- do not chart) 1 each PRN DAILY PRN MC SEE COMMENTS ; Start 12/05/18 at 08:45; Status UNV Info (PHARMACY MONITORING -- do not chart) 1 each PRN DAILY PRN MC SEE COMMENTS ; Start 12/05/18 at 08:45; Status Cancel Morphine Sulfate (Morphine Sulfate) 4 mg STK-MED ONCE .ROUTE ; Start 12/05/18 at 09:35; Stop 12/05/18 at 09:37; Status DC Metoclopramide HCl (Reglan Oral Solution) 5 mg QIDACHS PO Last administered on 12/08/18at 09:10; Start 12/07/18 at 11:30 Sodium Chloride 1,000 ml @ 1,000 mls/hr Q1H PRN IV hypotension; Start 12/07/18 at 16:46; Stop 12/07/18 at 22:45; Status DC Sodium Chloride 1,000 ml @ 400 mls/hr Q2H30M PRN IV PATENCY; Start 12/07/18 at 16:46; Stop 12/08/18 at 04:45; Status DC Info (PHARMACY MONITORING -- do not chart) 1 each PRN DAILY PRN MC SEE COMMENTS ; Start 12/07/18 at 17:00 Active Scripts Active Zofran (Ondansetron Hcl) 4 Mg Tablet 1 Tab PO Q6HRS Zyvox (Linezolid) 600 Mg Tablet 600 Mg PO BID 30 Days Hydrocodone-Apap 5-325 (Hydrocodone Bit/Acetaminophen) 1 Tab Tablet 1 Tab PO PRN Q4HRS PRN 30 Days Aspirin Ec (Aspirin) 81 Mg Tablet. 81 Mg PO DAILYWBKFT 30 Days [Pantoprazole] 40 MG Tablet. 40 Mg PO DAILYAC 30 Days Humalog (Insulin Lispro) 100 Unit/1 Ml Insuln.pen 0 Units SQ TIDWMEALS 30 Days BG 150-199= 1 units 200-299= 2 units 300-399= 4 units 400-499= 6 units ac tid sliding scale Culturelle (Lactobacillus Rhamnosus Gg) 1 Each Cap.sprink 1 Cap PO BID 30 Days Tylenol (Acetaminophen) 325 Mg Tablet 325 Mg PO PRN Q4HRS PRN 30 Days Carvedilol (Carvedilol) 3.125 Mg Tablet 3.125 Mg PO BIDWMEALS 30 Days Renvela (Sevelamer Carbonate) 800 Mg Tablet 800 Mg PO TIDWMEALS 30 Days Pantoprazole Sodium 40 Mg Tablet.dr 40 Mg PO DAILYAC 30 Days Krista-Beatriz Tablet (Folic Acid/Vitamin B Comp W-C) 0.8 Mg Tablet 1 Tab PO DAILY 30 Days Reported Vitamin B-12 (Cyanocobalamin (Vitamin B-12)) 1,000 Mcg Tablet 1 Tab PO DAILY Allopurinol 100 Mg Tablet 1 Tab PO DAILY Renal Caps Softgel (Folic Acid/Vitamin B Comp W-C) 1 Mg Capsule 1 Cap PO DAILY Acidophilus Lactobacilli (Lactobacillus Acidophilus) 1 Each Capsule 1 Each PO BID Protonix (Pantoprazole Sodium) 20 Mg Tablet.dr 40 Mg PO DAILY Renvela (Sevelamer Carbonate) 800 Mg Tablet 800 Mg PO TIDWMEALS Lyrica (Pregabalin) 50 Mg Capsule 50 Mg PO HS Tylenol (Acetaminophen) 325 Mg Tablet 1 Tab PO PRN Q4HRS Hydrocodone-Apap 5-325 (Hydrocodone Bit/Acetaminophen) 1 Tab Tablet 1 Tab PO PRN Q4HRS PRN Aspirin 81 Mg Tab.chew 81 Mg PO DAILY Carvedilol (Carvedilol) 3.125 Mg Tablet 3.125 Mg PO BIDWMEALS Lipitor (Atorvastatin Calcium) 40 Mg Tablet 40 Mg PO HS Clopidogrel (Clopidogrel Bisulfate) 75 Mg Tablet 75 Mg PO DAILY Vitamin D (Cholecalciferol (Vitamin D3)) 2,000 Unit Capsule 1 Cap PO DAILY [place] 5-325 Tablet (Acetaminophen/Hydrocodone Bitart) 1 Each Tablet 1 Tab PO PRN Q4HRS PRN Lyrica (Pregabalin) 50 Mg Capsule 25 Mg PO HS Clopidogrel (Clopidogrel Bisulfate) 75 Mg Tablet 1 Tab PO DAILY Atorvastatin Calcium 40 Mg Tablet 40 Mg PO HS Allopurinol 100 Mg Tablet 1 Tab PO DAILY Vitamin B-12 (Cyanocobalamin (Vitamin B-12)) 1,000 Mcg Tablet 1 Tab PO DAILY Vitamin D-3 (Cholecalciferol (Vitamin D3)) 2,000 Unit Capsule 1,000 Unit PO DAILY Vitals/I & O Vital Sign - Last 24 Hours 12/07/18 12/07/18 12/07/18 12/07/18 10:40 10:58 14:59 17:32 Temp 97.9 97.9 97.9 97.9 Pulse 60 61 Resp 20 18 B/P (MAP) 108/60 (76) 92/54 (67) 127/60 (82) Pulse Ox 96 99 97 O2 Delivery Room Air Room Air Room Air 12/07/18 12/07/18 12/07/18 12/07/18 17:32 17:40 20:00 22:34 Pulse 61 B/P (MAP) 127/60 Pulse Ox 97 97 O2 Delivery Room Air Room Air Room Air 12/07/18 12/08/18 12/08/18 12/08/18 22:34 03:00 04:01 05:01 Temp 97.9 98.1 97.9 98.1 Pulse 62 60 Resp 19 20 B/P (MAP) 135/79 (97) 144/60 (88) Pulse Ox 96 90 90 90 O2 Delivery Room Air Room Air Room Air Room Air O2 Flow Rate 3.0 12/08/18 12/08/18 12/08/18 07:00 07:27 09:10 Temp 98.0 98.0 Pulse 60 60 Resp 20 B/P (MAP) 123/74 (90) 123/74 Pulse Ox 100 O2 Delivery Nasal Cannula Room Air O2 Flow Rate 2.0 Intake and Output 12/07/18 12/07/18 12/08/18 15:01 23:01 07:01 Intake Total 480 ml 240 ml Output Total 150 ml Balance 480 ml 240 ml -150 ml KIMI TIDWELL MD Dec 08, 2018 09:57
[2018-12-08 11:00] VITALS: BP 117/51
--- NOTE | 2018-12-08 11:02 | PDOC ---
Subjective: Subjective: No n/v, feels pretty good today. Objective: Vital Signs: Vital Signs Date Time Temp Pulse Resp B/P (MAP) Pulse Ox O2 Delivery O2 Flow Rate FiO2 12/08/18 09:10 60 123/74 12/08/18 07:27 Room Air 12/08/18 07:00 98.0 20 100 2.0 98.0 Labs: Laboratory Tests Test 12/07/18 11:10 12/07/18 16:35 12/07/18 21:50 12/08/18 07:24 Glucose (Fingerstick) 181 mg/dL 157 mg/dL 130 mg/dL 127 mg/dL PE: GEN: NAD LUNGS: NC HEART: RRR ABD: S/ND/NT NEURO/PSYCH: A & O �3 A/P: N/v - better -- Encouraged Reglan susp BEFORE meals. KARLA WATT Dec 08, 2018 11:02
--- NOTE | 2018-12-08 11:05 | PDOC ---
Renal-Progress Notes Subjective Notes Notes NONE History of Present Illness Hx of present illness STABLE Vitals Vitals Vital Signs Date Time Temp Pulse Resp B/P (MAP) Pulse Ox O2 Delivery O2 Flow Rate FiO2 12/08/18 09:10 60 123/74 12/08/18 07:27 Room Air 12/08/18 07:00 98.0 20 100 2.0 98.0 Weight Weight [ ] I.O. Intake and Output Intake and Output 12/08/18 07:01 Intake Total 720 ml Output Total 150 ml Balance 570 ml Intake Oral 720 ml Output Urine Total 150 ml # Bowel Movements 1 Labs Labs Laboratory Tests Test 12/07/18 11:10 12/07/18 16:35 12/07/18 21:50 12/08/18 07:24 Glucose (Fingerstick) 181 mg/dL (70-99) 157 mg/dL (70-99) 130 mg/dL (70-99) 127 mg/dL (70-99) Review of Systems Constitutional: yes: alert, oriented Ears/Nose/Throat: Yes: no symptom reported Eyes: Yes: no symptom reported Pulmonary: Yes no symptom reported Cardiovascular: Yes no symptom reported Gastrointestional: Yes: no symptom reported Genitourinary: Yes: no symptom reported Musculoskeletal: Yes: no symptom reported Skin: Yes no symptom reported Psychiatric/Neurological: Yes: no symptom reported Endocrine: Yes: no symptom reported Physical Exam General Appearance: no apparent distress Skin: warm Respiratory: bilateral CTA Heart: S1S2, RRR Abdomen: soft Genitourinary: no mass Extremities: pulses present Assessment Assessment IMP ESRD DM II ANEMIA HTN RIGHT TOE WOUND-S/P AMP PLAN HD [facility] SOON UPDATED FAMILY CHAITANYA HILARIO MD Dec 08, 2018 11:05
--- NOTE | 2018-12-08 13:43 | PDOC ---
Provider Note Provider Note Subjective Pt doing well today. Up in chair, feels good today. No complaints. Objective VSS, afebrile Alert, oriented, in no apparent distress Respirations nonlabored Wound vac dressing to right foot, with good suction. Mild bloody drainage noted in collection canister. Assessment/Plan: POD#3 Debridement right foot wound with amputation right 2nd toe w/wound vac dressing 1. Continue wound vac therapy. Plan is for patient to go to [facility], awaiting approval. Will plan to assess wound with wound vac dressing change tomorrow if pt still here. 2. Spoke with Alex at , unable to coordinate pt's schedule to do HBO in addition to his regular dialysis schedule. 3. Continue antibiotic therapy per ID. 4. Pt can be full weight bearing IF wearing forefoot offloading shoe. Without the shoe he is heel touch for transfers only with right foot. 5. Vac to be chaned 3x week, he will see Kayy [employer] at then upon leaving there will need weekly wound care visits. Pt will see Dr. Byers in our office as well. AMELIA ALICIA Dec 08, 2018 13:43
[2018-12-08 15:20] VITALS: BP_SYST 117; BP_SYST 131; BP_DIAS 51; BP_DIAS 64
[2018-12-08] MEDS: MEROPENEM 500 MG in IV NORMAL SALINE 50ML 50 ML IV SCH (16:13)
[2018-12-08 19:59] VITALS: BP 109/43
[2018-12-08] MEDS: ATORVASTATIN CALCIUM 40 MG TABLET. PO SCH (21:04)
[2018-12-08] MEDS: PREGABALIN 25 MG CAPSULE PO SCH (21:04)
[2018-12-08 22:16] VITALS: BP 128/64
[2018-12-09] VITALS (16 sets, daily range): BP systolic 110–125; BP diastolic 56–75
[2018-12-09 06:54] LABS: BASO # 0.1 x10^3/uL (0.0-0.2); BASO % 1 % (0-3); EOS # 1.2 x10^3/uL (0.0-0.7); EOS % 12 % (0-3); HEMATOCRIT 22.5 % (39.0-53.0); HEMOGLOBIN 7.6 g/dL (13.0-17.5); LYMPH # 1.8 x10^3/uL (1.0-4.8); LYMPH % 18 % (24-48); MEAN CORPUSCULAR HEMOGLOBIN 31 pg (25-35); MEAN CORPUSCULAR HGB CONC 34 g/dL (31-37); MEAN CORPUSCULAR VOLUME 92 fL (79-100); MONO # 0.6 x10^3/uL (0.0-1.1); MONO % 6 % (0-9); NEUT # 6.3 x10^3uL (1.8-7.7); NEUT % 63 % (31-73); PLATELET COUNT 221 x10^3/uL (140-400); RED BLOOD COUNT 2.46 x10^6/uL (4.30-5.70); RED CELL DISTRIBUTION WIDTH 17.7 % (11.5-14.5)
[2018-12-09 07:12] LABS: CALCIUM 8.7 mg/dL (8.5-10.1); CREATININE 8.3 mg/dL (0.7-1.3); GFR 7.6; POTASSIUM 4.9 mmol/L (3.5-5.1)
[2018-12-09] MEDS: METOCLOPRAMIDE ORAL SOLN 10 MG/10 ML SOLUTION. PO SCH ×4 (07:30→20:52)
[2018-12-09] MEDS: ONDANSETRON ODT 4 MG TAB.RAPDIS. PO SCH ×3 (07:30→16:48)
--- NOTE | 2018-12-09 07:34 | PDOC ---
Infectious Disease Note Subjective Subjective Doing well. Had a good night Doing ok pain ok denies any n/v/d/abdo pain/rash or generalized aches awaiting placement Vital Sign Vital Signs Vital Signs Date Time Temp Pulse Resp B/P (MAP) Pulse Ox O2 Delivery O2 Flow Rate FiO2 12/09/18 03:31 97.9 60 16 112/62 (79) 99 Nasal Cannula 2.0 97.9 Physical Exam PHYSICAL EXAM GENERAL: NAD - in chair- looks well HEENT: Oral cavity clear NECK: Supple. LUNGS: Clear HEART: S1, S2 ABDOMEN: Soft, NT, BS present - obese EXTREMITIES: Trace edema; right foot with vac in place AV fistula NEUROLOGIC: Alert and oriented SKIN: No rash Right SCL (11/10) clean Labs Lab Laboratory Tests Test 12/08/18 12:05 12/08/18 16:51 12/08/18 20:37 12/09/18 06:30 Glucose (Fingerstick) 160 mg/dL (70-99) 175 mg/dL (70-99) 158 mg/dL (70-99) White Blood Count 10.0 x10^3/uL (4.0-11.0) Red Blood Count 2.46 x10^6/uL (4.30-5.70) Hemoglobin 7.6 g/dL (13.0-17.5) Hematocrit 22.5 % (39.0-53.0) Mean Corpuscular Volume 92 fL (79-100) Mean Corpuscular Hemoglobin 31 pg (25-35) Mean Corpuscular Hemoglobin Concent 34 g/dL (31-37) Red Cell Distribution Width 17.7 % (11.5-14.5) Platelet Count 221 x10^3/uL (140-400) Neutrophils (%) (Auto) 63 % (31-73) Lymphocytes (%) (Auto) 18 % (24-48) Monocytes (%) (Auto) 6 % (0-9) Eosinophils (%) (Auto) 12 % (0-3) Basophils (%) (Auto) 1 % (0-3) Neutrophils # (Auto) 6.3 x10^3uL (1.8-7.7) Lymphocytes # (Auto) 1.8 x10^3/uL (1.0-4.8) Monocytes # (Auto) 0.6 x10^3/uL (0.0-1.1) Eosinophils # (Auto) 1.2 x10^3/uL (0.0-0.7) Basophils # (Auto) 0.1 x10^3/uL (0.0-0.2) Sodium Level 137 mmol/L (136-145) Potassium Level 4.9 mmol/L (3.5-5.1) Chloride Level 98 mmol/L (98-107) Carbon Dioxide Level 31 mmol/L (21-32) Anion Gap 8 (6-14) Blood Urea Nitrogen 57 mg/dL (8-26) Creatinine 8.3 mg/dL (0.7-1.3) Estimated GFR (Cockcroft-Gault) 7.6 Glucose Level 118 mg/dL (70-99) Calcium Level 8.7 mg/dL (8.5-10.1) Objective Assessment Recent 1 st toe amp with developing gangrene, s/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 (h/o MSSA, Enterobacter and VRE). ESR 90 S/p Right first toe open ray amputation wound debridement with amputation of his second toe including excision of the metatarsal head and proximal and mid metatarsal bone 12/05. Right foot wound VAC dressing. Right lateral malleolus wound s/p sharp excisional debridement removing necrotic subcutaneous tissue, 11/02. -11/02. Enterobacter aerogenes, Cipro sensitive, VRE (linezolid & Dapto sensistive; PCN resistent) and Gram variable nuria not ID. Ck 25 on 12/07 PAD s/p angio 11/03. ESRD/HD Diarrhea/loose stools. C. diff pending Thrombocytopenia - on Zyvox Plan Plan of Care Consulted IR to change or replace central line to change subclavian or place IJ PICC if possible Discharging to [facility] when can be arranged however have issues with cost of Daptomycin Zyvox causes issue with Thrombocytopenia so not an option Continue Dapto and meropenem for min 4 weeks Rx written When ready for dc home Every Wednesday CBC, ESR, CPK.cmp Fax results to [phone] f/u appt with us in 1-2 weeks f/u with vascular as directed HBO therapy - wound care team following D/W RN D/w Dr. Byers 12/05 JAYY SUÁREZ MD Dec 09, 2018 07:34
--- NOTE | 2018-12-09 07:35 | PDOC ---
SURGICAL PROGRESS NOTE Subjective Doing well with no complaints this am. Vital Signs Vital Signs Date Time Temp Pulse Resp B/P (MAP) Pulse Ox O2 Delivery O2 Flow Rate FiO2 12/09/18 03:31 97.9 60 16 112/62 (79) 99 Nasal Cannula 2.0 97.9 I&O Intake and Output 12/09/18 07:01 Intake Total 680 ml Balance 680 ml Intake Oral 680 ml # Bowel Movements 1 General: Alert, Oriented X3, Cooperative Lungs: Clear to auscultation, Normal air movement Heart: Regular rate, Normal S1, Normal S2 Skin: Other (Vac in place) Labs Laboratory Tests Test 12/07/18 11:10 12/07/18 16:35 12/07/18 21:50 12/08/18 07:24 Glucose (Fingerstick) 181 mg/dL (70-99) 157 mg/dL (70-99) 130 mg/dL (70-99) 127 mg/dL (70-99) Test 12/08/18 12:05 12/08/18 16:51 12/08/18 20:37 12/09/18 06:30 Glucose (Fingerstick) 160 mg/dL (70-99) 175 mg/dL (70-99) 158 mg/dL (70-99) White Blood Count 10.0 x10^3/uL (4.0-11.0) Red Blood Count 2.46 x10^6/uL (4.30-5.70) Hemoglobin 7.6 g/dL (13.0-17.5) Hematocrit 22.5 % (39.0-53.0) Mean Corpuscular Volume 92 fL (79-100) Mean Corpuscular Hemoglobin 31 pg (25-35) Mean Corpuscular Hemoglobin Concent 34 g/dL (31-37) Red Cell Distribution Width 17.7 % (11.5-14.5) Platelet Count 221 x10^3/uL (140-400) Neutrophils (%) (Auto) 63 % (31-73) Lymphocytes (%) (Auto) 18 % (24-48) Monocytes (%) (Auto) 6 % (0-9) Eosinophils (%) (Auto) 12 % (0-3) Basophils (%) (Auto) 1 % (0-3) Neutrophils # (Auto) 6.3 x10^3uL (1.8-7.7) Lymphocytes # (Auto) 1.8 x10^3/uL (1.0-4.8) Monocytes # (Auto) 0.6 x10^3/uL (0.0-1.1) Eosinophils # (Auto) 1.2 x10^3/uL (0.0-0.7) Basophils # (Auto) 0.1 x10^3/uL (0.0-0.2) Sodium Level 137 mmol/L (136-145) Potassium Level 4.9 mmol/L (3.5-5.1) Chloride Level 98 mmol/L (98-107) Carbon Dioxide Level 31 mmol/L (21-32) Anion Gap 8 (6-14) Blood Urea Nitrogen 57 mg/dL (8-26) Creatinine 8.3 mg/dL (0.7-1.3) Estimated GFR (Cockcroft-Gault) 7.6 Glucose Level 118 mg/dL (70-99) Calcium Level 8.7 mg/dL (8.5-10.1) Laboratory Tests Test 12/08/18 12:05 12/08/18 16:51 12/08/18 20:37 12/09/18 06:30 Glucose (Fingerstick) 160 mg/dL (70-99) 175 mg/dL (70-99) 158 mg/dL (70-99) White Blood Count 10.0 x10^3/uL (4.0-11.0) Red Blood Count 2.46 x10^6/uL (4.30-5.70) Hemoglobin 7.6 g/dL (13.0-17.5) Hematocrit 22.5 % (39.0-53.0) Mean Corpuscular Volume 92 fL (79-100) Mean Corpuscular Hemoglobin 31 pg (25-35) Mean Corpuscular Hemoglobin Concent 34 g/dL (31-37) Red Cell Distribution Width 17.7 % (11.5-14.5) Platelet Count 221 x10^3/uL (140-400) Neutrophils (%) (Auto) 63 % (31-73) Lymphocytes (%) (Auto) 18 % (24-48) Monocytes (%) (Auto) 6 % (0-9) Eosinophils (%) (Auto) 12 % (0-3) Basophils (%) (Auto) 1 % (0-3) Neutrophils # (Auto) 6.3 x10^3uL (1.8-7.7) Lymphocytes # (Auto) 1.8 x10^3/uL (1.0-4.8) Monocytes # (Auto) 0.6 x10^3/uL (0.0-1.1) Eosinophils # (Auto) 1.2 x10^3/uL (0.0-0.7) Basophils # (Auto) 0.1 x10^3/uL (0.0-0.2) Sodium Level 137 mmol/L (136-145) Potassium Level 4.9 mmol/L (3.5-5.1) Chloride Level 98 mmol/L (98-107) Carbon Dioxide Level 31 mmol/L (21-32) Anion Gap 8 (6-14) Blood Urea Nitrogen 57 mg/dL (8-26) Creatinine 8.3 mg/dL (0.7-1.3) Estimated GFR (Cockcroft-Gault) 7.6 Glucose Level 118 mg/dL (70-99) Calcium Level 8.7 mg/dL (8.5-10.1) Problem List Ok to D/C once social arrangements made. F/U [facility]. MITCHEL MONTANO DO Dec 09, 2018 07:35
[2018-12-09] MEDS ORDERED: IV NORMAL SALINE 1000ML BAG 1,000 ML IV PRN ×2 (07:50)
[2018-12-09] MEDS: INSULIN LISPRO 300 UNITS/3 ML INSULN.PEN. SQ SCH ×3 (08:00→16:44)
[2018-12-09] MEDS: SEVELAMER CARBONATE 800 MG TABLET. PO SCH ×3 (08:00→16:47)
[2018-12-09] MEDS ORDERED: DIALYSIS PATIENT. MC PRN ×2 (08:00)
--- NOTE | 2018-12-09 10:13 | PDOC ---
PROGRESS NOTES Subjective Subjective seen during hemodialysis and is sleeping. lab reviewed. Objective Objective Vital Signs Date Time Temp Pulse Resp B/P (MAP) Pulse Ox O2 Delivery O2 Flow Rate FiO2 12/09/18 07:45 Room Air 2.0 12/09/18 07:00 97.8 66 18 110/59 (76) 94 97.8 Intake and Output 12/09/18 07:01 Intake Total 680 ml Balance 680 ml Intake Oral 680 ml # Bowel Movements 1 Physical Exam Abdomen: Soft Heart: Normal S1, Normal S2 Extremities: Other (trace edema legs) General: Alert HEENT: Atraumatic Lungs: Clear to auscultation Neuro: Normal speech Psych/Mental Status: Mental status NL Skin: No rashes Assessment Assessment necrotic right foot wound debridement of right first ray and 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 suspect due to zyvox. will avoid heparin products nausea and vomiting . improved anemia of chronic disease Plan Plan of Care continue iv daptomycin and meropenem hemodialysis today HBO as out patient continue wound care and wound vac discussed with dr. 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 Labs Laboratory Tests Test 12/07/18 11:10 12/07/18 16:35 12/07/18 21:50 12/08/18 07:24 Glucose (Fingerstick) 181 mg/dL (70-99) 157 mg/dL (70-99) 130 mg/dL (70-99) 127 mg/dL (70-99) Test 12/08/18 12:05 12/08/18 16:51 12/08/18 20:37 12/09/18 06:30 Glucose (Fingerstick) 160 mg/dL (70-99) 175 mg/dL (70-99) 158 mg/dL (70-99) White Blood Count 10.0 x10^3/uL (4.0-11.0) Red Blood Count 2.46 x10^6/uL (4.30-5.70) Hemoglobin 7.6 g/dL (13.0-17.5) Hematocrit 22.5 % (39.0-53.0) Mean Corpuscular Volume 92 fL (79-100) Mean Corpuscular Hemoglobin 31 pg (25-35) Mean Corpuscular Hemoglobin Concent 34 g/dL (31-37) Red Cell Distribution Width 17.7 % (11.5-14.5) Platelet Count 221 x10^3/uL (140-400) Neutrophils (%) (Auto) 63 % (31-73) Lymphocytes (%) (Auto) 18 % (24-48) Monocytes (%) (Auto) 6 % (0-9) Eosinophils (%) (Auto) 12 % (0-3) Basophils (%) (Auto) 1 % (0-3) Neutrophils # (Auto) 6.3 x10^3uL (1.8-7.7) Lymphocytes # (Auto) 1.8 x10^3/uL (1.0-4.8) Monocytes # (Auto) 0.6 x10^3/uL (0.0-1.1) Eosinophils # (Auto) 1.2 x10^3/uL (0.0-0.7) Basophils # (Auto) 0.1 x10^3/uL (0.0-0.2) Sodium Level 137 mmol/L (136-145) Potassium Level 4.9 mmol/L (3.5-5.1) Chloride Level 98 mmol/L (98-107) Carbon Dioxide Level 31 mmol/L (21-32) Anion Gap 8 (6-14) Blood Urea Nitrogen 57 mg/dL (8-26) Creatinine 8.3 mg/dL (0.7-1.3) Estimated GFR (Cockcroft-Gault) 7.6 Glucose Level 118 mg/dL (70-99) Calcium Level 8.7 mg/dL (8.5-10.1) Test 12/09/18 07:11 Glucose (Fingerstick) 111 mg/dL (70-99) Laboratory Tests Test 12/08/18 12:05 12/08/18 16:51 12/08/18 20:37 12/09/18 06:30 Glucose (Fingerstick) 160 mg/dL (70-99) 175 mg/dL (70-99) 158 mg/dL (70-99) White Blood Count 10.0 x10^3/uL (4.0-11.0) Red Blood Count 2.46 x10^6/uL (4.30-5.70) Hemoglobin 7.6 g/dL (13.0-17.5) Hematocrit 22.5 % (39.0-53.0) Mean Corpuscular Volume 92 fL (79-100) Mean Corpuscular Hemoglobin 31 pg (25-35) Mean Corpuscular Hemoglobin Concent 34 g/dL (31-37) Red Cell Distribution Width 17.7 % (11.5-14.5) Platelet Count 221 x10^3/uL (140-400) Neutrophils (%) (Auto) 63 % (31-73) Lymphocytes (%) (Auto) 18 % (24-48) Monocytes (%) (Auto) 6 % (0-9) Eosinophils (%) (Auto) 12 % (0-3) Basophils (%) (Auto) 1 % (0-3) Neutrophils # (Auto) 6.3 x10^3uL (1.8-7.7) Lymphocytes # (Auto) 1.8 x10^3/uL (1.0-4.8) Monocytes # (Auto) 0.6 x10^3/uL (0.0-1.1) Eosinophils # (Auto) 1.2 x10^3/uL (0.0-0.7) Basophils # (Auto) 0.1 x10^3/uL (0.0-0.2) Sodium Level 137 mmol/L (136-145) Potassium Level 4.9 mmol/L (3.5-5.1) Chloride Level 98 mmol/L (98-107) Carbon Dioxide Level 31 mmol/L (21-32) Anion Gap 8 (6-14) Blood Urea Nitrogen 57 mg/dL (8-26) Creatinine 8.3 mg/dL (0.7-1.3) Estimated GFR (Cockcroft-Gault) 7.6 Glucose Level 118 mg/dL (70-99) Calcium Level 8.7 mg/dL (8.5-10.1) Test 12/09/18 07:11 Glucose (Fingerstick) 111 mg/dL (70-99) Medications Current Medications Acetaminophen (Tylenol) 325 mg PRN Q4HRS PRN PO MILD PAIN / TEMP Last administered on 12/03/18 00:58; Start 11/24/18 at 20:30 Allopurinol (Zyloprim) 100 mg DAILY PO Last administered on 12/08/18 09:09; Start 11/25/18 at 09:00 Aspirin (Children'S Aspirin) 81 mg DAILY PO Last administered on 12/08/18 09: 09; Start 11/25/18 at 09:00 Atorvastatin Calcium (Lipitor) 40 mg HS PO Last administered on 12/08/18 21:04 ; Start 11/24/18 at 21:00 Carvedilol (Coreg) 3.125 mg BIDWMEALS PO Last administered on 11/29/18 18:49; Start 11/24/18 at 21:00; Stop 11/30/18 at 10:19; Status DC Vitamin D (Vitamin D3) 1,000 unit DAILY PO Last administered on 12/08/18 09:09 ; Start 11/25/18 at 09:00 Clopidogrel Bisulfate (Plavix) 75 mg DAILY PO Last administered on 12/08/18 09 :08; Start 11/25/18 at 09:00 Cyanocobalamin (Vitamin B-12) 1,000 mcg DAILY PO Last administered on 09:08; Start 11/25/18 at 09:00 Acetaminophen/ Hydrocodone Bitart (Lortab 5/325) 1 tab PRN Q4HRS PRN PO MODERATE - SEVERE PAIN Last administered on 11/29/18 20:52; Start 11/24/18 at 20:30; Stop 11/30/18 at 11:04; Status DC Pregabalin (Lyrica) 50 mg HS PO Last administered on 11/30/18 20:18; Start at 21:00; Stop 12/01/18 at 12:12; Status DC Sevelamer Carbonate (Renvela) 800 mg TIDWMEALS PO Last administered on 17:42; Start 11/25/18 at 08:00 Vitamin B Complex/ Vitamin C (Krista-Beatriz) 1 tab DAILY PO Last administered on 09:08; Start 11/25/18 at 09:00 Lactobacillus Rhamnosus (Culturelle) 1 cap BID PO Last administered on 21:04; Start 11/24/18 at 21:00 Pantoprazole Sodium (Protonix) 40 mg DAILYAC PO Last administered on 12/08/18 09:09; Start 11/25/18 at 07:30 Insulin Human Lispro (HumaLOG) 0-5 UNITS TIDWMEALS SQ ; Start 11/24/18 at 21:00 ; Stop 11/24/18 at 21:57; Status DC Dextrose (Dextrose 50%-Water Syringe) 12.5 gm PRN Q15MIN PRN IV SEE COMMENTS; Start 11/24/18 at 20:45 Insulin Human Lispro (HumaLOG) 0-5 UNITS TIDWMEALS SQ ; Start 11/25/18 at 08:00 ; Stop 11/25/18 at 08:00; Status DC Insulin Human Lispro (HumaLOG) 0-5 UNITS BG 300-39... TIDWMEALS SQ Last administered on 12/08/18 17:50; Start 11/25/18 at 08:00 Collagenase (Santyl) 1 judi DAILY TP Last administered on 12/08/18 09:11; Start 11/25/18 at 10:00 Meropenem 500 mg/ Sodium Chloride 50 ml @ 100 mls/hr Q12HR IV ; Start at 21:00; Status UNV Daptomycin 690 mg/ Sodium Chloride 50 ml @ 100 mls/hr [id number]@1600 IV Last administered on 12/07/18 16:15; Start 11/25/18 at 16:00 Heparin Sodium (Porcine) (Heparin Sodium) 5,000 unit Q12HR SQ Last administered on 11/27/18at 20:28; Start 11/25/18 at 21:00; Stop 11/28/18 at 09 :44; Status DC Meropenem 500 mg/ Sodium Chloride 50 ml @ 100 mls/hr DAILY16 IV Last administered on 12/08/18 16:13; Start 11/25/18 at 16:00 Linezolid (Zyvox) 600 mg BID PO Last administered on 11/28/18at 08:48; Start 11/25/18 at 11:00; Stop 11/28/18 at 10:04; Status DC Info (PHARMACY MONITORING -- do not chart) 1 each PRN DAILY PRN MC SEE COMMENTS ; Start 11/25/18 at 10:45; Stop 11/28/18 at 17:07; Status DC Sodium Chloride 1,000 ml @ 1,000 mls/hr Q1H PRN IV hypotension; Start at 14:30; Stop 11/25/18 at 20:30; Status DC Sodium Chloride 1,000 ml @ 400 mls/hr Q2H30M PRN IV PATENCY; Start 11/25/18 at 14:30; Stop 11/25/18 at 20:30; Status DC Info (PHARMACY MONITORING -- do not chart) 1 each PRN DAILY PRN MC SEE COMMENTS ; Start 11/25/18 at 14:45; Status UNV Info (PHARMACY MONITORING -- do not chart) 1 each PRN DAILY PRN MC SEE COMMENTS ; Start 11/25/18 at 14:45; Status UNV Ondansetron HCl (Zofran Odt) 4 mg PRN Q6HRS PRN PO NAUSEA/VOMITING Last administered on 12/01/18at 07:30; Start 11/27/18 at 02:15 Magnesium Sulfate 50 ml @ 25 mls/hr PRN DAILY PRN IV for Mag < 1.7 on am labs; Start 11/27/18 at 14:00 Sodium Chloride 1,000 ml @ 1,000 mls/hr Q1H PRN IV hypotension; Start at 09:05; Stop 11/28/18 at 15:04; Status DC Albumin Human 200 ml @ 200 mls/hr 1X PRN PRN IV Hypotension; Start 11/28/18 at 09:15; Stop 11/28/18 at 15:14; Status DC Sodium Chloride 1,000 ml @ 400 mls/hr Q2H30M PRN IV PATENCY; Start 11/28/18 at 09:05; Stop 11/28/18 at 21:04; Status DC Info (PHARMACY MONITORING -- do not chart) 1 each PRN DAILY PRN MC SEE COMMENTS ; Start 11/28/18 at 09:15; Stop 11/28/18 at 17:07; Status DC Info (PHARMACY MONITORING -- do not chart) 1 each PRN DAILY PRN MC SEE COMMENTS ; Start 11/28/18 at 09:15; Stop 12/02/18 at 15:15; Status DC Sodium Chloride 1,000 ml @ 1,000 mls/hr Q1H PRN IV hypotension; Start 11/29/18 at 16:30; Stop 11/29/18 at 23:00; Status DC Info (PHARMACY MONITORING -- do not chart) 1 each PRN DAILY PRN MC SEE COMMENTS ; Start 11/29/18 at 16:45; Status UNV Info (PHARMACY MONITORING -- do not chart) 1 each PRN DAILY PRN MC SEE COMMENTS ; Start 11/29/18 at 16:45; Status UNV Info (PHARMACY MONITORING -- do not chart) 1 each PRN DAILY PRN MC SEE COMMENTS ; Start 11/30/18 at 08:30 Magnesium Sulfate 50 ml @ 25 mls/hr 1X ONCE IV Last administered on 11/30/18at 10:44; Start 11/30/18 at 10:00; Stop 11/30/18 at 11:59; Status DC Darbepoetin Reinaldo (Aranesp) 100 mcg WEEKLYHS SQ Last administered on 12/07/18at 21 :54; Start 11/30/18 at 21:00 Tramadol HCl (Ultram) 25 mg PRN Q6HRS PRN PO MODERATE PAIN Last administered on 11/30/18at 23:44; Start 11/30/18 at 11:00; Stop 12/01/18 at 12:12; Status DC Nystatin (Nystop) 1 judi BID TP Last administered on 12/08/18at 21:00; Start 11/30 at 12:00 Sodium Chloride 1,000 ml @ 1,000 mls/hr Q1H PRN IV hypotension; Start 11/30/18 at 10:00; Stop 11/30/18 at 16:30; Status DC Albumin Human 200 ml @ 200 mls/hr 1X PRN PRN IV Hypotension; Start 11/30/18 at 10:00; Stop 11/30/18 at 16:30; Status DC Albumin Human 200 ml @ 100 mls/hr 1X ONCE IV Last administered on 11/30/18at 16 :45; Start 11/30/18 at 16:45; Stop 11/30/18 at 18:44; Status DC Albumin Human 500 ml @ 125 mls/hr Q4H IV Last administered on 12/01/18at 17:22; Start 12/01/18 at 12:00; Stop 12/01/18 at 19:59; Status DC Pregabalin (Lyrica) 25 mg HS PO Last administered on 12/08/18at 21:04; Start 12/01/18 at 21:00 Ondansetron HCl (Zofran Odt) 4 mg TIDAC PO Last administered on 12/08/18at 17:42 ; Start 12/01/18 at 16:30 Metoclopramide HCl (Reglan) 5 mg TIDACHC PO Last administered on 12/07/18at 08:35 ; Start 12/01/18 at 16:30; Stop 12/07/18 at 11:01; Status DC Acetaminophen/ Hydrocodone Bitart (Lortab 5/325) 0.5 tab PRN Q4HRS PRN PO MODERATE PAIN Last administered on 12/08/18at 23:05; Start 12/01/18 at 12:30 Sodium Chloride 1,000 ml @ 1,000 mls/hr Q1H PRN IV hypotension; Start 12/02/18 at 08:27; Stop 12/02/18 at 14:26; Status DC Albumin Human 200 ml @ 200 mls/hr 1X PRN PRN IV Hypotension; Start 12/02/18 at 08:30; Stop 12/02/18 at 14:29; Status DC Sodium Chloride 1,000 ml @ 400 mls/hr Q2H30M PRN IV PATENCY; Start 12/02/18 at 08:27; Stop 12/02/18 at 20:26; Status DC Info (PHARMACY MONITORING -- do not chart) 1 each PRN DAILY PRN MC SEE COMMENTS ; Start 12/02/18 at 08:30; Status UNV Info (PHARMACY MONITORING -- do not chart) 1 each PRN DAILY PRN MC SEE COMMENTS ; Start 12/02/18 at 08:30; Status UNV Ondansetron HCl (Zofran) 4 mg PRN Q6HRS PRN IV NAUSEA/VOMITING; Start 12/05/18 at 07:00; Stop 12/06/18 at 06:59; Status DC Morphine Sulfate (Morphine Sulfate) 1 mg PRN Q10MIN PRN IV SEVERE PAIN Last administered on 12/05/18at 09:39; Start 12/05/18 at 07:00; Stop 12/05/18 at 18:00; Status DC Ringer's Solution 1,000 ml @ 30 mls/hr Q24H IV ; Start 12/05/18 at 07:00; Stop 12/05/18 at 18:59; Status DC Lidocaine HCl (Xylocaine-Mpf 1% 2ml Vial) 2 ml PRN 1X PRN ID PRIOR TO IV START ; Start 12/05/18 at 07:00; Stop 12/05/18 at 07:01; Status DC Hydromorphone HCl (Dilaudid) 0.5 mg PRN Q10MIN PRN IV SEV PAIN, Second choice; Start 12/05/18 at 07:00; Stop 12/06/18 at 06:59; Status DC Carvedilol (Coreg) 3.125 mg BIDWMEALS PO Last administered on 12/08/18at 17:44; Start 12/03/18 at 08:00 Sodium Chloride 500 ml @ 30 mls/hr [id number] IV Last administered on 12/05/18at 11 :05; Start 12/05/18 at 06:30; Stop 12/06/18 at 06:29; Status DC Cefazolin Sodium 1 gm/Sodium Chloride 500 ml @ 500 mls/hr 1X ONCE IRR Last administered on 12/05/18at 07:45; Start 12/05/18 at 08:00; Stop 12/05/18 at 08:59; Status DC Sevoflurane (Ultane) 30 ml STK-MED ONCE IH ; Start 12/05/18 at 07:15; Stop at 07:16; Status DC Fentanyl Citrate (Fentanyl 2ml Vial) 100 mcg STK-MED ONCE .ROUTE ; Start at 07:15; Stop 12/05/18 at 07:17; Status DC Propofol 20 ml @ As Directed STK-MED ONCE IV ; Start 12/05/18 at 07:15; Stop 12/05 at 07:17; Status DC Lidocaine HCl (Lidocaine Pf 2% Vial) 5 ml STK-MED ONCE .ROUTE ; Start 12/05/18 at 07:15; Stop 12/05/18 at 07:17; Status DC Dexamethasone Sodium Phosphate (Decadron) 20 mg STK-MED ONCE .ROUTE ; Start 12/05 at 07:15; Stop 12/05/18 at 07:17; Status DC Ondansetron HCl (Zofran) 4 mg STK-MED ONCE .ROUTE ; Start 12/05/18 at 07:15; Stop 12/05/18 at 07:17; Status DC Lidocaine HCl 20 ml STK-MED ONCE .ROUTE ; Start 12/05/18 at 07:33; Stop 12/05/18 at 07:34; Status DC Cellulose (Surgicel Fibrillar 1x2) 1 each STK-MED ONCE .ROUTE ; Start 12/05/18 at 07:33; Stop 12/05/18 at 07:34; Status DC Phenylephrine HCl (PHENYLEPHRINE in 0.9% NACL PF) 1 mg STK-MED ONCE IV ; Start 12/05/18 at 07:56; Stop 12/05/18 at 07:58; Status DC Sodium Chloride 1,000 ml @ 1,000 mls/hr Q1H PRN IV hypotension; Start 12/05/18 at 08:31; Stop 12/05/18 at 14:30; Status DC Albumin Human 200 ml @ 200 mls/hr 1X PRN PRN IV Hypotension; Start 12/05/18 at 08:45; Stop 12/05/18 at 14:44; Status DC Sodium Chloride 1,000 ml @ 400 mls/hr Q2H30M PRN IV PATENCY Last administered on 12/05/18at 11:04; Start 12/05/18 at 08:31; Stop 12/05/18 at 20:30; Status DC Info (PHARMACY MONITORING -- do not chart) 1 each PRN DAILY PRN MC SEE COMMENTS ; Start 12/05/18 at 08:45; Status UNV Info (PHARMACY MONITORING -- do not chart) 1 each PRN DAILY PRN MC SEE COMMENTS ; Start 12/05/18 at 08:45; Status Cancel Morphine Sulfate (Morphine Sulfate) 4 mg STK-MED ONCE .ROUTE ; Start 12/05/18 at 09:35; Stop 12/05/18 at 09:37; Status DC Metoclopramide HCl (Reglan Oral Solution) 5 mg QIDACHS PO Last administered on 12/08/18at 21:04; Start 12/07/18 at 11:30 Sodium Chloride 1,000 ml @ 1,000 mls/hr Q1H PRN IV hypotension; Start 12/07/18 at 16:46; Stop 12/07/18 at 22:45; Status DC Sodium Chloride 1,000 ml @ 400 mls/hr Q2H30M PRN IV PATENCY; Start 12/07/18 at 16:46; Stop 12/08/18 at 04:45; Status DC Info (PHARMACY MONITORING -- do not chart) 1 each PRN DAILY PRN MC SEE COMMENTS ; Start 12/07/18 at 17:00 Sodium Chloride 1,000 ml @ 1,000 mls/hr Q1H PRN IV hypotension; Start 12/09/18 at 07:50; Stop 12/09/18 at 13:49 Sodium Chloride 1,000 ml @ 400 mls/hr Q2H30M PRN IV PATENCY; Start 12/09/18 at 07:50; Stop 12/09/18 at 19:49 Info (PHARMACY MONITORING -- do not chart) 1 each PRN DAILY PRN MC SEE COMMENTS ; Start 12/09/18 at 08:00; Status UNV Info (PHARMACY MONITORING -- do not chart) 1 each PRN DAILY PRN MC SEE COMMENTS ; Start 12/09/18 at 08:00; Status UNV Active Scripts Active Zofran (Ondansetron Hcl) 4 Mg Tablet 1 Tab PO Q6HRS Zyvox (Linezolid) 600 Mg Tablet 600 Mg PO BID 30 Days Hydrocodone-Apap 5-325 (Hydrocodone Bit/Acetaminophen) 1 Tab Tablet 1 Tab PO PRN Q4HRS PRN 30 Days Aspirin Ec (Aspirin) 81 Mg Tablet. 81 Mg PO DAILYWBKFT 30 Days [Pantoprazole] 40 MG Tablet.dr 40 Mg PO DAILYAC 30 Days Humalog (Insulin Lispro) 100 Unit/1 Ml Insuln.pen 0 Units SQ TIDWMEALS 30 Days BG 150-199= 1 units 200-299= 2 units 300-399= 4 units 400-499= 6 units ac tid sliding scale Culturelle (Lactobacillus Rhamnosus Gg) 1 Each Cap.sprink 1 Cap PO BID 30 Days Tylenol (Acetaminophen) 325 Mg Tablet 325 Mg PO PRN Q4HRS PRN 30 Days Carvedilol (Carvedilol) 3.125 Mg Tablet 3.125 Mg PO BIDWMEALS 30 Days Renvela (Sevelamer Carbonate) 800 Mg Tablet 800 Mg PO TIDWMEALS 30 Days Pantoprazole Sodium 40 Mg Tablet.dr 40 Mg PO DAILYAC 30 Days Krista-Beatriz Tablet (Folic Acid/Vitamin B Comp W-C) 0.8 Mg Tablet 1 Tab PO DAILY 30 Days Reported Vitamin B-12 (Cyanocobalamin (Vitamin B-12)) 1,000 Mcg Tablet 1 Tab PO DAILY Allopurinol 100 Mg Tablet 1 Tab PO DAILY Renal Caps Softgel (Folic Acid/Vitamin B Comp W-C) 1 Mg Capsule 1 Cap PO DAILY Acidophilus Lactobacilli (Lactobacillus Acidophilus) 1 Each Capsule 1 Each PO BID Protonix (Pantoprazole Sodium) 20 Mg Tablet.dr 40 Mg PO DAILY Renvela (Sevelamer Carbonate) 800 Mg Tablet 800 Mg PO TIDWMEALS Lyrica (Pregabalin) 50 Mg Capsule 50 Mg PO HS Tylenol (Acetaminophen) 325 Mg Tablet 1 Tab PO PRN Q4HRS Hydrocodone-Apap 5-325 (Hydrocodone Bit/Acetaminophen) 1 Tab Tablet 1 Tab PO PRN Q4HRS PRN Aspirin 81 Mg Tab.chew 81 Mg PO DAILY Carvedilol (Carvedilol) 3.125 Mg Tablet 3.125 Mg PO BIDWMEALS Lipitor (Atorvastatin Calcium) 40 Mg Tablet 40 Mg PO HS Clopidogrel (Clopidogrel Bisulfate) 75 Mg Tablet 75 Mg PO DAILY Vitamin D (Cholecalciferol (Vitamin D3)) 2,000 Unit Capsule 1 Cap PO DAILY [place] 5-325 Tablet (Acetaminophen/Hydrocodone Bitart) 1 Each Tablet 1 Tab PO PRN Q4HRS PRN Lyrica (Pregabalin) 50 Mg Capsule 25 Mg PO HS Clopidogrel (Clopidogrel Bisulfate) 75 Mg Tablet 1 Tab PO DAILY Atorvastatin Calcium 40 Mg Tablet 40 Mg PO HS Allopurinol 100 Mg Tablet 1 Tab PO DAILY Vitamin B-12 (Cyanocobalamin (Vitamin B-12)) 1,000 Mcg Tablet 1 Tab PO DAILY Vitamin D-3 (Cholecalciferol (Vitamin D3)) 2,000 Unit Capsule 1,000 Unit PO DAILY Vitals/I & O Vital Sign - Last 24 Hours 12/08/18 12/08/18 12/08/18 12/08/18 11:00 14:29 15:20 17:44 Temp 98.2 97.8 98.2 97.8 Pulse 57 59 61 B/P (MAP) 117/51 (73) 131/64 (86) 131/64 Pulse Ox 94 94 97 O2 Delivery Room Air Room Air Room Air 12/08/18 12/08/18 12/08/18 12/08/18 18:25 19:59 20:00 22:16 Temp 98.8 97.9 98.8 97.9 Pulse 62 63 Resp 18 16 B/P (MAP) 109/43 (65) 128/64 (85) Pulse Ox 97 91 95 O2 Delivery Room Air Room Air Room Air Nasal Cannula O2 Flow Rate 2.0 12/08/18 12/09/18 12/09/18 12/09/18 23:05 00:05 03:31 07:00 Temp 97.9 97.8 97.9 97.8 Pulse 60 66 Resp 16 18 B/P (MAP) 112/62 (79) 110/59 (76) Pulse Ox 95 95 99 94 O2 Delivery Room Air Room Air Nasal Cannula Nasal Cannula O2 Flow Rate 2.0 2.0 12/09/18 07:45 O2 Delivery Room Air O2 Flow Rate 2.0 Intake and Output 12/08/18 12/08/18 12/09/18 15:01 23:01 07:01 Intake Total 240 ml 240 ml 200 ml Balance 240 ml 240 ml 200 ml KIMI TIDWELL MD Dec 09, 2018 10:13
[2018-12-09 10:46] LABS: % BANDS 4 % (0-9); % EOS 16 % (0-5); % LYMPHS 16 % (24-48); % MONOS 7 % (0-10); % SEGS 57 % (35-66)
[2018-12-09 10:47] LABS: PLT ESTIMATE ADEQUATE (ADEQUATE)
--- NOTE | 2018-12-09 10:47 | PDOC ---
Renal-Progress Notes Subjective Notes Notes NO NEW COMPLAINTS History of Present Illness Hx of present illness STABLE Vitals Vitals Vital Signs Date Time Temp Pulse Resp B/P (MAP) Pulse Ox O2 Delivery O2 Flow Rate FiO2 12/09/18 07:45 Room Air 2.0 12/09/18 07:00 97.8 66 18 110/59 (76) 94 97.8 Weight Weight [ ] I.O. Intake and Output Intake and Output 12/09/18 07:01 Intake Total 680 ml Balance 680 ml Intake Oral 680 ml # Bowel Movements 1 Labs Labs Laboratory Tests Test 12/08/18 12:05 12/08/18 16:51 12/08/18 20:37 12/09/18 06:30 Glucose (Fingerstick) 160 mg/dL (70-99) 175 mg/dL (70-99) 158 mg/dL (70-99) White Blood Count 10.0 x10^3/uL (4.0-11.0) Red Blood Count 2.46 x10^6/uL (4.30-5.70) Hemoglobin 7.6 g/dL (13.0-17.5) Hematocrit 22.5 % (39.0-53.0) Mean Corpuscular Volume 92 fL (79-100) Mean Corpuscular Hemoglobin 31 pg (25-35) Mean Corpuscular Hemoglobin Concent 34 g/dL (31-37) Red Cell Distribution Width 17.7 % (11.5-14.5) Platelet Count 221 x10^3/uL (140-400) Neutrophils (%) (Auto) 63 % (31-73) Lymphocytes (%) (Auto) 18 % (24-48) Monocytes (%) (Auto) 6 % (0-9) Eosinophils (%) (Auto) 12 % (0-3) Basophils (%) (Auto) 1 % (0-3) Neutrophils # (Auto) 6.3 x10^3uL (1.8-7.7) Lymphocytes # (Auto) 1.8 x10^3/uL (1.0-4.8) Monocytes # (Auto) 0.6 x10^3/uL (0.0-1.1) Eosinophils # (Auto) 1.2 x10^3/uL (0.0-0.7) Basophils # (Auto) 0.1 x10^3/uL (0.0-0.2) Sodium Level 137 mmol/L (136-145) Potassium Level 4.9 mmol/L (3.5-5.1) Chloride Level 98 mmol/L (98-107) Carbon Dioxide Level 31 mmol/L (21-32) Anion Gap 8 (6-14) Blood Urea Nitrogen 57 mg/dL (8-26) Creatinine 8.3 mg/dL (0.7-1.3) Estimated GFR (Cockcroft-Gault) 7.6 Glucose Level 118 mg/dL (70-99) Calcium Level 8.7 mg/dL (8.5-10.1) Test 12/09/18 07:11 Glucose (Fingerstick) 111 mg/dL (70-99) Review of Systems Constitutional: yes: alert, oriented Ears/Nose/Throat: Yes: no symptom reported Eyes: Yes: no symptom reported Pulmonary: Yes no symptom reported Cardiovascular: Yes no symptom reported Gastrointestional: Yes: no symptom reported Genitourinary: Yes: no symptom reported Musculoskeletal: Yes: no symptom reported Skin: Yes no symptom reported Psychiatric/Neurological: Yes: no symptom reported Endocrine: Yes: no symptom reported Physical Exam General Appearance: no apparent distress Skin: warm Respiratory: bilateral CTA Heart: S1S2, RRR Abdomen: soft Genitourinary: no mass Extremities: pulses present Assessment Assessment IMP ESRD DM II ANEMIA HTN RIGHT TOE WOUND-S/P AMP PLAN HD TODAY CONT [facility] SOON USUALLY MWF BUT WILL CHANGE TO TTS HD SCHEDULE TO ACCOMMODATE HBO TX D/W CHAITANYA JACKSON MD Dec 09, 2018 10:47
[2018-12-09 10:48] LABS: ANISOCYTOSIS SLIGHT
--- NOTE | 2018-12-09 12:52 | PDOC ---
Subjective: Subjective: Feeling good. Objective: Objective: D/w RN this morning - no GI concerns, possible DC today. Vital Signs: Vital Signs Date Time Temp Pulse Resp B/P (MAP) Pulse Ox O2 Delivery O2 Flow Rate FiO2 12/09/18 07:45 Room Air 2.0 12/09/18 07:00 97.8 66 18 110/59 (76) 94 97.8 Labs: Laboratory Tests Test 12/08/18 16:51 12/08/18 20:37 12/09/18 06:30 12/09/18 07:11 Glucose (Fingerstick) 175 mg/dL 158 mg/dL 111 mg/dL White Blood Count 10.0 x10^3/uL Red Blood Count 2.46 x10^6/uL Hemoglobin 7.6 g/dL Hematocrit 22.5 % Mean Corpuscular Volume 92 fL Mean Corpuscular Hemoglobin 31 pg Mean Corpuscular Hemoglobin Concent 34 g/dL Red Cell Distribution Width 17.7 % Platelet Count 221 x10^3/uL Neutrophils (%) (Auto) 63 % Lymphocytes (%) (Auto) 18 % Monocytes (%) (Auto) 6 % Eosinophils (%) (Auto) 12 % Basophils (%) (Auto) 1 % Neutrophils # (Auto) 6.3 x10^3uL Lymphocytes # (Auto) 1.8 x10^3/uL Monocytes # (Auto) 0.6 x10^3/uL Eosinophils # (Auto) 1.2 x10^3/uL Basophils # (Auto) 0.1 x10^3/uL Segmented Neutrophils % 57 % Band Neutrophils % 4 % Lymphocytes % 16 % Monocytes % 7 % Eosinophils % 16 % Platelet Estimate Adequate Basophilic Stippling Present Anisocytosis Slight Sodium Level 137 mmol/L Potassium Level 4.9 mmol/L Chloride Level 98 mmol/L Carbon Dioxide Level 31 mmol/L Anion Gap 8 Blood Urea Nitrogen 57 mg/dL Creatinine 8.3 mg/dL Estimated GFR (Cockcroft-Gault) 7.6 Glucose Level 118 mg/dL Calcium Level 8.7 mg/dL PE: GEN: NAD, leaving dialysis w/ transportation NEURO/PSYCH: A & O �3 A/P: N/v - resolved w/ Reglan susp AC and PPI QD -- DC per primary. KARLA WATT Dec 09, 2018 12:52
[2018-12-09] MEDS ORDERED: LIDOCAINE 1%/EPI 1:100,000 20 ML VIAL. ONE (12:59)
[2018-12-09] MEDS ORDERED: LIDOCAINE 1%/EPI 1:100,000 20 ML VIAL. IJ ONE (13:15)
[2018-12-09] MEDS ORDERED: HEPARIN PF 500 UNIT/5 ML DISP.SYRIN. IV ONE ×2 (13:17→13:30)
--- NOTE | 2018-12-09 14:05 | RAD ---
Procedure: Ultrasound and fluoroscopically guided placement of tunnel central venous catheter. 12/09/2018 1:59 PM Clinical Indication: DETENTION ACCESS FOR ANTIBX Sedation: Conscious sedation was administered for 30 minutes. The patient was monitored by a qualified independent observer throughout the time of sedation. Please refer to the medical record for exact doses of medications utilized to achieve moderate sedation. Fluoroscopy time: 0.3 minutes Dose area product: 2 Gycm2 Consent: The procedure was explained in its entirety to the patient or the patients designated energy conservation representative by a member of the treatment team, including a discussion of the risks, benefits and commonly accepted alternatives to the procedure, as well as the expected consequences of no therapy whatsoever. Discussion of the risks included, but was not limited to, those that are most frequent and those that are rare but possibly severe or life-threatening, as well as the possibility of unforeseen complications. Sterility: All elements of maximal sterile barrier technique including the use of a cap, mask, sterile gown, sterile gloves, large sterile sheet, appropriate hand hygiene, and 2% chlorhexidine for cutaneous antisepsis (or acceptable alternative antiseptic per current guidelines) were followed for this procedure. Technique and Findings: Right internal jugular line was removed prior to procedure. Following informed consent, the patient was prepped and draped in the usual sterile fashion. Ultrasound interrogation of the right neck revealed patency and compressibility of the right internal jugular vein. A 21-gauge micropuncture was then used to gain access to this vein under ultrasound guidance. A hard copy ultrasound image was recorded. The needle was exchanged over a wire for a sheath. A small incision was made several centimeters inferior to the right clavicle. A power line was trimmed to length, advanced from the small skin incision to the venotomy site, and then advanced through a peel-away sheath to the level of the cavoatrial junction. Catheter was found to flush and aspirate normally. Catheter was secured in place with 2-0 Prolene suture and a sterile dressing was applied. Catheter was packed with heparin per protocol. The neck dermatotomy was closed with Dermabond. No immediate complications were identified. Impression: Successful ultrasound and fluoroscopically guided placement of a right internal jugular tunneled central venous catheter
[2018-12-09] MEDS: FOLIC/VIT B COMP W-C (RENAL) TABLET. PO SCH (14:23)
[2018-12-09] MEDS: CYANOCOBALAMIN (VITAMIN B-12) 1,000 MCG TABLET. PO SCH (14:25)
[2018-12-09] MEDS: CLOPIDOGREL BISULFATE 75 MG TABLET PO SCH (14:25)
[2018-12-09] MEDS: LACTOBACILLUS RHAMNOSUS GG 1 CAPSULE. PO SCH ×2 (14:25→20:52)
[2018-12-09] MEDS: PANTOPRAZOLE 40 MG TABLET.DR. PO SCH (14:26)
[2018-12-09] MEDS: ASPIRIN CHEWABLE 81 MG TABLET. PO SCH (14:28)
[2018-12-09] MEDS: CHOLECALCIFEROL (VITAMIN D3) 1,000 UNIT TABLET PO SCH (14:34)
[2018-12-09] MEDS: ALLOPURINOL 100 MG TABLET. PO SCH (14:34)
[2018-12-09] MEDS: NYSTATIN TOPICAL POWDER 15GM BOTTLE. TP SCH ×2 (14:35→20:52)
--- NOTE | 2018-12-09 14:35 | NUR ---
SS following up with discharge planning. SS received notification from [facility] that [facility] has approved carve out for Daptomycin and Meropenum. [facility] stated that Daptomycin could not be delivered until Wednesday. [facility] stated that PT/OT needs to see and treat pt on 12/11/2018, and they will approve for pt to discharge to [facility] on 12/12/2018. Therapy and respiratory therapy director notified.
[2018-12-09] MEDS: CARVEDILOL 3.125 MG TABLET. PO SCH ×2 (14:43→17:00)
[2018-12-09] MEDS: COLLAGENASE 250 UNIT/GM TOPICAL OINTMENT 30GM TUBE. TP SCH (14:46)
[2018-12-09] MEDS: HYDROcodone/APAP 5/325MG 1 TAB TABLET PO PRN ×2 (14:46→20:52)
--- NOTE | 2018-12-09 16:10 | NUR ---
Wound Care Wound care follow up for vac change. Removed dressings and Cleansed wound. Wounds are beefy red with granulation throughout. Reapplied vac with 1 piece black GranuFoam at 125 mmHg continuous pressure. R lateral ankle dressed with Xeroform and gauze pad, secured with Kerlix. L 2nd toe dressing changes with Xeroform and gauze. WC will follow up for vac change on Wednesday. No other wounds found on full skin inspection, pt on P500 bed, left on his back for dinner with heel medix boot, educated pt on PU prevention.
[2018-12-09] MEDS: MEROPENEM 500 MG in IV NORMAL SALINE 50ML 50 ML IV SCH (16:48)
[2018-12-09] MEDS: DAPTOMYCIN IV SCH (16:50)
[2018-12-09] MEDS: NORMAL SALINE IV SCH (16:50)
[2018-12-09] MEDS: PREGABALIN 25 MG CAPSULE PO SCH (20:52)
[2018-12-09] MEDS: ATORVASTATIN CALCIUM 40 MG TABLET. PO SCH (20:52)
[2018-12-10 03:07] VITALS: BP 122/60
[2018-12-10 07:00] VITALS: BP 191/56
[2018-12-10] MEDS: CARVEDILOL 3.125 MG TABLET. PO SCH ×2 (08:00→16:47)
[2018-12-10] MEDS: INSULIN LISPRO 300 UNITS/3 ML INSULN.PEN. SQ SCH ×3 (08:00→17:00)
[2018-12-10] MEDS: PANTOPRAZOLE 40 MG TABLET.DR. PO SCH ×2 (08:04→08:46)
[2018-12-10] MEDS: METOCLOPRAMIDE ORAL SOLN 10 MG/10 ML SOLUTION. PO SCH ×4 (08:45→20:30)
[2018-12-10] MEDS: SEVELAMER CARBONATE 800 MG TABLET. PO SCH ×3 (08:45→17:00)
[2018-12-10] MEDS: CYANOCOBALAMIN (VITAMIN B-12) 1,000 MCG TABLET. PO SCH (08:45)
[2018-12-10] MEDS: ONDANSETRON ODT 4 MG TAB.RAPDIS. PO SCH ×3 (08:45→16:47)
[2018-12-10] MEDS: FOLIC/VIT B COMP W-C (RENAL) TABLET. PO SCH (08:45)
[2018-12-10] MEDS: ASPIRIN CHEWABLE 81 MG TABLET. PO SCH (08:45)
[2018-12-10] MEDS: NYSTATIN TOPICAL POWDER 15GM BOTTLE. TP SCH ×2 (08:46→20:44)
[2018-12-10] MEDS: CHOLECALCIFEROL (VITAMIN D3) 1,000 UNIT TABLET PO SCH (08:46)
[2018-12-10] MEDS: COLLAGENASE 250 UNIT/GM TOPICAL OINTMENT 30GM TUBE. TP SCH (08:46)
[2018-12-10] MEDS: ALLOPURINOL 100 MG TABLET. PO SCH (08:46)
[2018-12-10] MEDS: CLOPIDOGREL BISULFATE 75 MG TABLET PO SCH (08:46)
[2018-12-10] MEDS: LACTOBACILLUS RHAMNOSUS GG 1 CAPSULE. PO SCH ×2 (08:46→20:30)
--- NOTE | 2018-12-10 10:27 | PDOC ---
PROGRESS NOTES Subjective Subjective feels well. comfortable. eating well. insurance approved daptomycin at [facility] and will transfer wednesday. Objective Objective Vital Signs Date Time Temp Pulse Resp B/P (MAP) Pulse Ox O2 Delivery O2 Flow Rate FiO2 12/10/18 08:15 Room Air 12/10/18 08:00 61 191/56 12/10/18 07:00 97.9 20 92 97.9 12/09/18 21:52 2.0 Intake and Output 12/10/18 07:01 Intake Total 607 ml Output Total 50 ml Balance 557 ml Intake Oral 557 ml IV Total 50 ml Output Urine Total 50 ml Physical Exam Abdomen: Soft, Other (obese) Heart: Normal S1, Normal S2 Extremities: No edema, Other (left great toe amputation. 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 suspect due to zyvox. will avoid heparin products nausea and vomiting . resolved anemia of chronic disease Plan Plan of Care continue iv daptomycin and meropenem wound care and wound vac hemodialysis wednesday PT and OT transfer to [facility] on wednesday Comment Review of Relevant I have reviewed the following items simeon (where applicable) has been applied. Labs Laboratory Tests Test 12/08/18 12:05 12/08/18 16:51 12/08/18 20:37 12/09/18 06:30 Glucose (Fingerstick) 160 mg/dL (70-99) 175 mg/dL (70-99) 158 mg/dL (70-99) White Blood Count 10.0 x10^3/uL (4.0-11.0) Red Blood Count 2.46 x10^6/uL (4.30-5.70) Hemoglobin 7.6 g/dL (13.0-17.5) Hematocrit 22.5 % (39.0-53.0) Mean Corpuscular Volume 92 fL (79-100) Mean Corpuscular Hemoglobin 31 pg (25-35) Mean Corpuscular Hemoglobin Concent 34 g/dL (31-37) Red Cell Distribution Width 17.7 % (11.5-14.5) Platelet Count 221 x10^3/uL (140-400) Neutrophils (%) (Auto) 63 % (31-73) Lymphocytes (%) (Auto) 18 % (24-48) Monocytes (%) (Auto) 6 % (0-9) Eosinophils (%) (Auto) 12 % (0-3) Basophils (%) (Auto) 1 % (0-3) Neutrophils # (Auto) 6.3 x10^3uL (1.8-7.7) Lymphocytes # (Auto) 1.8 x10^3/uL (1.0-4.8) Monocytes # (Auto) 0.6 x10^3/uL (0.0-1.1) Eosinophils # (Auto) 1.2 x10^3/uL (0.0-0.7) Basophils # (Auto) 0.1 x10^3/uL (0.0-0.2) Segmented Neutrophils % 57 % (35-66) Band Neutrophils % 4 % (0-9) Lymphocytes % 16 % (24-48) Monocytes % 7 % (0-10) Eosinophils % 16 % (0-5) Platelet Estimate Adequate (ADEQUATE) Basophilic Stippling Present Anisocytosis Slight Sodium Level 137 mmol/L (136-145) Potassium Level 4.9 mmol/L (3.5-5.1) Chloride Level 98 mmol/L (98-107) Carbon Dioxide Level 31 mmol/L (21-32) Anion Gap 8 (6-14) Blood Urea Nitrogen 57 mg/dL (8-26) Creatinine 8.3 mg/dL (0.7-1.3) Estimated GFR (Cockcroft-Gault) 7.6 Glucose Level 118 mg/dL (70-99) Calcium Level 8.7 mg/dL (8.5-10.1) Test 12/09/18 07:11 12/09/18 14:35 12/09/18 16:33 12/09/18 20:52 Glucose (Fingerstick) 111 mg/dL (70-99) 92 mg/dL (70-99) 120 mg/dL (70-99) 157 mg/dL (70-99) Test 12/10/18 08:12 Glucose (Fingerstick) 97 mg/dL (70-99) Laboratory Tests Test 12/09/18 14:35 12/09/18 16:33 12/09/18 20:52 12/10/18 08:12 Glucose (Fingerstick) 92 mg/dL (70-99) 120 mg/dL (70-99) 157 mg/dL (70-99) 97 mg/dL (70-99) Medications Current Medications Acetaminophen (Tylenol) 325 mg PRN Q4HRS PRN PO MILD PAIN / TEMP Last administered on 12/03/18 00:58; Start 11/24/18 at 20:30 Allopurinol (Zyloprim) 100 mg DAILY PO Last administered on 12/10/18 08:46; Start 11/25/18 at 09:00 Aspirin (Children'S Aspirin) 81 mg DAILY PO Last administered on 12/10/18 08: 45; Start 11/25/18 at 09:00 Atorvastatin Calcium (Lipitor) 40 mg HS PO Last administered on 12/09/18 20:52 ; Start 11/24/18 at 21:00 Carvedilol (Coreg) 3.125 mg BIDWMEALS PO Last administered on 11/29/18 18:49; Start 11/24/18 at 21:00; Stop 11/30/18 at 10:19; Status DC Vitamin D (Vitamin D3) 1,000 unit DAILY PO Last administered on 12/10/18 08:46 ; Start 11/25/18 at 09:00 Clopidogrel Bisulfate (Plavix) 75 mg DAILY PO Last administered on 12/10/18 08 :46; Start 11/25/18 at 09:00 Cyanocobalamin (Vitamin B-12) 1,000 mcg DAILY PO Last administered on 08:45; Start 11/25/18 at 09:00 Acetaminophen/ Hydrocodone Bitart (Lortab 5/325) 1 tab PRN Q4HRS PRN PO MODERATE - SEVERE PAIN Last administered on 11/29/18 20:52; Start 11/24/18 at 20:30; Stop 11/30/18 at 11:04; Status DC Pregabalin (Lyrica) 50 mg HS PO Last administered on 11/30/18 20:18; Start at 21:00; Stop 12/01/18 at 12:12; Status DC Sevelamer Carbonate (Renvela) 800 mg TIDWMEALS PO Last administered on 08:45; Start 11/25/18 at 08:00 Vitamin B Complex/ Vitamin C (Krista-Beatriz) 1 tab DAILY PO Last administered on 08:45; Start 11/25/18 at 09:00 Lactobacillus Rhamnosus (Culturelle) 1 cap BID PO Last administered on 08:46; Start 11/24/18 at 21:00 Pantoprazole Sodium (Protonix) 40 mg DAILYAC PO Last administered on 12/10/18 08:46; Start 11/25/18 at 07:30 Insulin Human Lispro (HumaLOG) 0-5 UNITS TIDWMEALS SQ ; Start 11/24/18 at 21:00 ; Stop 11/24/18 at 21:57; Status DC Dextrose (Dextrose 50%-Water Syringe) 12.5 gm PRN Q15MIN PRN IV SEE COMMENTS; Start 11/24/18 at 20:45 Insulin Human Lispro (HumaLOG) 0-5 UNITS TIDWMEALS SQ ; Start 11/25/18 at 08:00 ; Stop 11/25/18 at 08:00; Status DC Insulin Human Lispro (HumaLOG) 0-5 UNITS BG 300-39... TIDWMEALS SQ Last administered on 12/08/18 17:50; Start 11/25/18 at 08:00 Collagenase (Santyl) 1 judi DAILY TP Last administered on 12/10/18 08:46; Start 11/25/18 at 10:00 Meropenem 500 mg/ Sodium Chloride 50 ml @ 100 mls/hr Q12HR IV ; Start at 21:00; Status UNV Daptomycin 690 mg/ Sodium Chloride 50 ml @ 100 mls/hr [id number]@1600 IV Last administered on 12/09/18 16:50; Start 11/25/18 at 16:00 Heparin Sodium (Porcine) (Heparin Sodium) 5,000 unit Q12HR SQ Last administered on 11/27/18at 20:28; Start 11/25/18 at 21:00; Stop 11/28/18 at 09 :44; Status DC Meropenem 500 mg/ Sodium Chloride 50 ml @ 100 mls/hr DAILY16 IV Last administered on 12/09/18at 16:48; Start 11/25/18 at 16:00 Linezolid (Zyvox) 600 mg BID PO Last administered on 11/28/18at 08:48; Start 11/25/18 at 11:00; Stop 11/28/18 at 10:04; Status DC Info (PHARMACY MONITORING -- do not chart) 1 each PRN DAILY PRN MC SEE COMMENTS ; Start 11/25/18 at 10:45; Stop 11/28/18 at 17:07; Status DC Sodium Chloride 1,000 ml @ 1,000 mls/hr Q1H PRN IV hypotension; Start at 14:30; Stop 11/25/18 at 20:30; Status DC Sodium Chloride 1,000 ml @ 400 mls/hr Q2H30M PRN IV PATENCY; Start 11/25/18 at 14:30; Stop 11/25/18 at 20:30; Status DC Info (PHARMACY MONITORING -- do not chart) 1 each PRN DAILY PRN MC SEE COMMENTS ; Start 11/25/18 at 14:45; Status UNV Info (PHARMACY MONITORING -- do not chart) 1 each PRN DAILY PRN MC SEE COMMENTS ; Start 11/25/18 at 14:45; Status UNV Ondansetron HCl (Zofran Odt) 4 mg PRN Q6HRS PRN PO NAUSEA/VOMITING Last administered on 12/01/18at 07:30; Start 11/27/18 at 02:15 Magnesium Sulfate 50 ml @ 25 mls/hr PRN DAILY PRN IV for Mag < 1.7 on am labs; Start 11/27/18 at 14:00 Sodium Chloride 1,000 ml @ 1,000 mls/hr Q1H PRN IV hypotension; Start at 09:05; Stop 11/28/18 at 15:04; Status DC Albumin Human 200 ml @ 200 mls/hr 1X PRN PRN IV Hypotension; Start 11/28/18 at 09:15; Stop 11/28/18 at 15:14; Status DC Sodium Chloride 1,000 ml @ 400 mls/hr Q2H30M PRN IV PATENCY; Start 11/28/18 at 09:05; Stop 11/28/18 at 21:04; Status DC Info (PHARMACY MONITORING -- do not chart) 1 each PRN DAILY PRN MC SEE COMMENTS ; Start 11/28/18 at 09:15; Stop 11/28/18 at 17:07; Status DC Info (PHARMACY MONITORING -- do not chart) 1 each PRN DAILY PRN MC SEE COMMENTS ; Start 11/28/18 at 09:15; Stop 12/02/18 at 15:15; Status DC Sodium Chloride 1,000 ml @ 1,000 mls/hr Q1H PRN IV hypotension; Start 11/29/18 at 16:30; Stop 11/29/18 at 23:00; Status DC Info (PHARMACY MONITORING -- do not chart) 1 each PRN DAILY PRN MC SEE COMMENTS ; Start 11/29/18 at 16:45; Status UNV Info (PHARMACY MONITORING -- do not chart) 1 each PRN DAILY PRN MC SEE COMMENTS ; Start 11/29/18 at 16:45; Status UNV Info (PHARMACY MONITORING -- do not chart) 1 each PRN DAILY PRN MC SEE COMMENTS ; Start 11/30/18 at 08:30 Magnesium Sulfate 50 ml @ 25 mls/hr 1X ONCE IV Last administered on 11/30/18at 10:44; Start 11/30/18 at 10:00; Stop 11/30/18 at 11:59; Status DC Darbepoetin Reinaldo (Aranesp) 100 mcg WEEKLYHS SQ Last administered on 12/07/18at 21 :54; Start 11/30/18 at 21:00 Tramadol HCl (Ultram) 25 mg PRN Q6HRS PRN PO MODERATE PAIN Last administered on 11/30/18at 23:44; Start 11/30/18 at 11:00; Stop 12/01/18 at 12:12; Status DC Nystatin (Nystop) 1 judi BID TP Last administered on 12/10/18at 08:46; Start 11/30 at 12:00 Sodium Chloride 1,000 ml @ 1,000 mls/hr Q1H PRN IV hypotension; Start 11/30/18 at 10:00; Stop 11/30/18 at 16:30; Status DC Albumin Human 200 ml @ 200 mls/hr 1X PRN PRN IV Hypotension; Start 11/30/18 at 10:00; Stop 11/30/18 at 16:30; Status DC Albumin Human 200 ml @ 100 mls/hr 1X ONCE IV Last administered on 11/30/18at 16 :45; Start 11/30/18 at 16:45; Stop 11/30/18 at 18:44; Status DC Albumin Human 500 ml @ 125 mls/hr Q4H IV Last administered on 12/01/18at 17:22; Start 12/01/18 at 12:00; Stop 12/01/18 at 19:59; Status DC Pregabalin (Lyrica) 25 mg HS PO Last administered on 12/09/18at 20:52; Start 12/01/18 at 21:00 Ondansetron HCl (Zofran Odt) 4 mg TIDAC PO Last administered on 12/10/18at 08:45 ; Start 12/01/18 at 16:30 Metoclopramide HCl (Reglan) 5 mg TIDACHC PO Last administered on 12/07/18at 08:35 ; Start 12/01/18 at 16:30; Stop 12/07/18 at 11:01; Status DC Acetaminophen/ Hydrocodone Bitart (Lortab 5/325) 0.5 tab PRN Q4HRS PRN PO MODERATE PAIN Last administered on 12/09/18at 20:52; Start 12/01/18 at 12:30 Sodium Chloride 1,000 ml @ 1,000 mls/hr Q1H PRN IV hypotension; Start 12/02/18 at 08:27; Stop 12/02/18 at 14:26; Status DC Albumin Human 200 ml @ 200 mls/hr 1X PRN PRN IV Hypotension; Start 12/02/18 at 08:30; Stop 12/02/18 at 14:29; Status DC Sodium Chloride 1,000 ml @ 400 mls/hr Q2H30M PRN IV PATENCY; Start 12/02/18 at 08:27; Stop 12/02/18 at 20:26; Status DC Info (PHARMACY MONITORING -- do not chart) 1 each PRN DAILY PRN MC SEE COMMENTS ; Start 12/02/18 at 08:30; Status UNV Info (PHARMACY MONITORING -- do not chart) 1 each PRN DAILY PRN MC SEE COMMENTS ; Start 12/02/18 at 08:30; Status UNV Ondansetron HCl (Zofran) 4 mg PRN Q6HRS PRN IV NAUSEA/VOMITING; Start 12/05/18 at 07:00; Stop 12/06/18 at 06:59; Status DC Morphine Sulfate (Morphine Sulfate) 1 mg PRN Q10MIN PRN IV SEVERE PAIN Last administered on 12/05/18at 09:39; Start 12/05/18 at 07:00; Stop 12/05/18 at 18:00; Status DC Ringer's Solution 1,000 ml @ 30 mls/hr Q24H IV ; Start 12/05/18 at 07:00; Stop 12/05/18 at 18:59; Status DC Lidocaine HCl (Xylocaine-Mpf 1% 2ml Vial) 2 ml PRN 1X PRN ID PRIOR TO IV START ; Start 12/05/18 at 07:00; Stop 12/05/18 at 07:01; Status DC Hydromorphone HCl (Dilaudid) 0.5 mg PRN Q10MIN PRN IV SEV PAIN, Second choice; Start 12/05/18 at 07:00; Stop 12/06/18 at 06:59; Status DC Carvedilol (Coreg) 3.125 mg BIDWMEALS PO Last administered on 12/10/18at 08:00; Start 12/03/18 at 08:00 Sodium Chloride 500 ml @ 30 mls/hr [id number] IV Last administered on 12/05/18at 11 :05; Start 12/05/18 at 06:30; Stop 12/06/18 at 06:29; Status DC Cefazolin Sodium 1 gm/Sodium Chloride 500 ml @ 500 mls/hr 1X ONCE IRR Last administered on 12/05/18at 07:45; Start 12/05/18 at 08:00; Stop 12/05/18 at 08:59; Status DC Sevoflurane (Ultane) 30 ml STK-MED ONCE IH ; Start 12/05/18 at 07:15; Stop at 07:16; Status DC Fentanyl Citrate (Fentanyl 2ml Vial) 100 mcg STK-MED ONCE .ROUTE ; Start at 07:15; Stop 12/05/18 at 07:17; Status DC Propofol 20 ml @ As Directed STK-MED ONCE IV ; Start 12/05/18 at 07:15; Stop 12/05 at 07:17; Status DC Lidocaine HCl (Lidocaine Pf 2% Vial) 5 ml STK-MED ONCE .ROUTE ; Start 12/05/18 at 07:15; Stop 12/05/18 at 07:17; Status DC Dexamethasone Sodium Phosphate (Decadron) 20 mg STK-MED ONCE .ROUTE ; Start 12/05 at 07:15; Stop 12/05/18 at 07:17; Status DC Ondansetron HCl (Zofran) 4 mg STK-MED ONCE .ROUTE ; Start 12/05/18 at 07:15; Stop 12/05/18 at 07:17; Status DC Lidocaine HCl 20 ml STK-MED ONCE .ROUTE ; Start 12/05/18 at 07:33; Stop 12/05/18 at 07:34; Status DC Cellulose (Surgicel Fibrillar 1x2) 1 each STK-MED ONCE .ROUTE ; Start 12/05/18 at 07:33; Stop 12/05/18 at 07:34; Status DC Phenylephrine HCl (PHENYLEPHRINE in 0.9% NACL PF) 1 mg STK-MED ONCE IV ; Start 12/05/18 at 07:56; Stop 12/05/18 at 07:58; Status DC Sodium Chloride 1,000 ml @ 1,000 mls/hr Q1H PRN IV hypotension; Start 12/05/18 at 08:31; Stop 12/05/18 at 14:30; Status DC Albumin Human 200 ml @ 200 mls/hr 1X PRN PRN IV Hypotension; Start 12/05/18 at 08:45; Stop 12/05/18 at 14:44; Status DC Sodium Chloride 1,000 ml @ 400 mls/hr Q2H30M PRN IV PATENCY Last administered on 12/05/18at 11:04; Start 12/05/18 at 08:31; Stop 12/05/18 at 20:30; Status DC Info (PHARMACY MONITORING -- do not chart) 1 each PRN DAILY PRN MC SEE COMMENTS ; Start 12/05/18 at 08:45; Status UNV Info (PHARMACY MONITORING -- do not chart) 1 each PRN DAILY PRN MC SEE COMMENTS ; Start 12/05/18 at 08:45; Status Cancel Morphine Sulfate (Morphine Sulfate) 4 mg STK-MED ONCE .ROUTE ; Start 12/05/18 at 09:35; Stop 12/05/18 at 09:37; Status DC Metoclopramide HCl (Reglan Oral Solution) 5 mg QIDACHS PO Last administered on 12/10/18at 08:45; Start 12/07/18 at 11:30 Sodium Chloride 1,000 ml @ 1,000 mls/hr Q1H PRN IV hypotension; Start 12/07/18 at 16:46; Stop 12/07/18 at 22:45; Status DC Sodium Chloride 1,000 ml @ 400 mls/hr Q2H30M PRN IV PATENCY; Start 12/07/18 at 16:46; Stop 12/08/18 at 04:45; Status DC Info (PHARMACY MONITORING -- do not chart) 1 each PRN DAILY PRN MC SEE COMMENTS ; Start 12/07/18 at 17:00 Sodium Chloride 1,000 ml @ 1,000 mls/hr Q1H PRN IV hypotension; Start 12/09/18 at 07:50; Stop 12/09/18 at 13:49; Status DC Sodium Chloride 1,000 ml @ 400 mls/hr Q2H30M PRN IV PATENCY; Start 12/09/18 at 07:50; Stop 12/09/18 at 19:49; Status DC Info (PHARMACY MONITORING -- do not chart) 1 each PRN DAILY PRN MC SEE COMMENTS ; Start 12/09/18 at 08:00; Status UNV Info (PHARMACY MONITORING -- do not chart) 1 each PRN DAILY PRN MC SEE COMMENTS ; Start 12/09/18 at 08:00; Status UNV Lidocaine/ Epinephrine (LIDOCAINE 1%-EPI 1:100,000 Multi-Dose) 20 ml STK-MED ONCE .ROUTE ; Start 12/09/18 at 12:59; Stop 12/09/18 at 13:01; Status DC Lidocaine/ Epinephrine (LIDOCAINE 1%-EPI 1:100,000 Multi-Dose) 20 ml 1X ONCE IJ Last administered on 12/09/18at 13:37; Start 12/09/18 at 13:15; Stop at 13:21; Status DC Heparin Sodium (Porcine) (Hep Lock Adult) 500 unit STK-MED ONCE IV ; Start 12/09 at 13:17; Stop 12/09/18 at 13:19; Status DC Heparin Sodium (Porcine) (Hep Lock Adult) 500 unit 1X ONCE IV Last administered on 12/09/18at 13:40; Start 12/09/18 at 13:30; Stop 12/09/18 at 13:31 ; Status DC Active Scripts Active Zofran (Ondansetron Hcl) 4 Mg Tablet 1 Tab PO Q6HRS Zyvox (Linezolid) 600 Mg Tablet 600 Mg PO BID 30 Days Hydrocodone-Apap 5-325 (Hydrocodone Bit/Acetaminophen) 1 Tab Tablet 1 Tab PO PRN Q4HRS PRN 30 Days Aspirin Ec (Aspirin) 81 Mg Tablet. 81 Mg PO DAILYWBKFT 30 Days [Pantoprazole] 40 MG Tablet.dr 40 Mg PO DAILYAC 30 Days Humalog (Insulin Lispro) 100 Unit/1 Ml Insuln.pen 0 Units SQ TIDWMEALS 30 Days BG 150-199= 1 units 200-299= 2 units 300-399= 4 units 400-499= 6 units ac tid sliding scale Culturelle (Lactobacillus Rhamnosus Gg) 1 Each Cap.sprink 1 Cap PO BID 30 Days Tylenol (Acetaminophen) 325 Mg Tablet 325 Mg PO PRN Q4HRS PRN 30 Days Carvedilol (Carvedilol) 3.125 Mg Tablet 3.125 Mg PO BIDWMEALS 30 Days Renvela (Sevelamer Carbonate) 800 Mg Tablet 800 Mg PO TIDWMEALS 30 Days Pantoprazole Sodium 40 Mg Tablet.dr 40 Mg PO DAILYAC 30 Days Krista-Beatriz Tablet (Folic Acid/Vitamin B Comp W-C) 0.8 Mg Tablet 1 Tab PO DAILY 30 Days Reported Vitamin B-12 (Cyanocobalamin (Vitamin B-12)) 1,000 Mcg Tablet 1 Tab PO DAILY Allopurinol 100 Mg Tablet 1 Tab PO DAILY Renal Caps Softgel (Folic Acid/Vitamin B Comp W-C) 1 Mg Capsule 1 Cap PO DAILY Acidophilus Lactobacilli (Lactobacillus Acidophilus) 1 Each Capsule 1 Each PO BID Protonix (Pantoprazole Sodium) 20 Mg Tablet.dr 40 Mg PO DAILY Renvela (Sevelamer Carbonate) 800 Mg Tablet 800 Mg PO TIDWMEALS Lyrica (Pregabalin) 50 Mg Capsule 50 Mg PO HS Tylenol (Acetaminophen) 325 Mg Tablet 1 Tab PO PRN Q4HRS Hydrocodone-Apap 5-325 (Hydrocodone Bit/Acetaminophen) 1 Tab Tablet 1 Tab PO PRN Q4HRS PRN Aspirin 81 Mg Tab.chew 81 Mg PO DAILY Carvedilol (Carvedilol) 3.125 Mg Tablet 3.125 Mg PO BIDWMEALS Lipitor (Atorvastatin Calcium) 40 Mg Tablet 40 Mg PO HS Clopidogrel (Clopidogrel Bisulfate) 75 Mg Tablet 75 Mg PO DAILY Vitamin D (Cholecalciferol (Vitamin D3)) 2,000 Unit Capsule 1 Cap PO DAILY [place] 5-325 Tablet (Acetaminophen/Hydrocodone Bitart) 1 Each Tablet 1 Tab PO PRN Q4HRS PRN Lyrica (Pregabalin) 50 Mg Capsule 25 Mg PO HS Clopidogrel (Clopidogrel Bisulfate) 75 Mg Tablet 1 Tab PO DAILY Atorvastatin Calcium 40 Mg Tablet 40 Mg PO HS Allopurinol 100 Mg Tablet 1 Tab PO DAILY Vitamin B-12 (Cyanocobalamin (Vitamin B-12)) 1,000 Mcg Tablet 1 Tab PO DAILY Vitamin D-3 (Cholecalciferol (Vitamin D3)) 2,000 Unit Capsule 1,000 Unit PO DAILY Vitals/I & O Vital Sign - Last 24 Hours 12/09/18 12/09/18 12/09/18 12/09/18 13:53 14:08 14:23 14:38 B/P (MAP) 119/75 (90) 120/56 (77) 122/62 (82) 125/66 (85) 12/09/18 12/09/18 12/09/18 12/09/18 14:43 14:46 14:53 15:08 Pulse 62 Resp 20 B/P (MAP) 125/66 121/64 (83) 122/71 (88) Pulse Ox 96 O2 Delivery Room Air 12/09/18 12/09/18 12/09/18 12/09/18 15:10 15:23 15:29 15:53 Temp 98.3 98.3 Pulse 66 Resp 18 B/P (MAP) 118/62 (80) 116/64 (81) 118/62 (80) 125/60 (81) Pulse Ox 95 O2 Delivery Nasal Cannula O2 Flow Rate 2.0 12/09/18 12/09/18 12/09/18 12/09/18 16:08 16:23 19:59 20:00 Temp 98.3 98.3 Pulse 59 Resp 16 B/P (MAP) 117/58 (77) 113/57 (75) 121/69 (86) Pulse Ox 92 O2 Delivery Room Air Room Air O2 Flow Rate 2.0 12/09/18 12/09/18 12/09/18 12/10/18 20:52 21:52 23:46 03:07 Temp 98.4 98.3 98.4 98.3 Pulse 66 60 Resp 18 18 16 16 B/P (MAP) 115/58 (77) 122/60 (80) Pulse Ox 92 92 96 97 O2 Delivery Room Air Room Air Room Air Room Air O2 Flow Rate 2.0 2.0 12/10/18 12/10/18 12/10/18 07:00 08:00 08:15 Temp 97.9 97.9 Pulse 61 61 Resp 20 B/P (MAP) 191/56 (101) 191/56 Pulse Ox 92 O2 Delivery Room Air Room Air Intake and Output 12/09/18 12/09/18 12/10/18 15:01 23:01 07:01 Intake Total 0 ml 607 ml Output Total 50 ml Balance 0 ml 607 ml -50 ml KIMI TIDWELL MD Dec 10, 2018 10:27
--- NOTE | 2018-12-10 10:43 | PDOC ---
Infectious Disease Note Subjective Subjective Comfortable Some loose stools Denies N/V/cramps No F/C/S/aches ROS ROS per HPI Vital Sign Vital Signs Vital Signs Date Time Temp Pulse Resp B/P (MAP) Pulse Ox O2 Delivery O2 Flow Rate FiO2 12/10/18 08:15 Room Air 12/10/18 08:00 61 191/56 12/10/18 07:00 97.9 20 92 97.9 12/09/18 21:52 2.0 Physical Exam PHYSICAL EXAM GENERAL: In chair, alert, relaxed appearance HEENT: Oral cavity clear NECK: Supple. LUNGS: Clear HEART: S1, S2 ABDOMEN: Obese, soft, NT, BS present EXTREMITIES: 1+ edema BLE, right foot with vac in place RUE-AV fistula -unremarkable NEUROLOGIC: Alert and oriented x 3 SKIN: No rash Right tunnelled RIJ (12/09) clean Labs Lab Laboratory Tests Test 12/09/18 14:35 12/09/18 16:33 12/09/18 20:52 12/10/18 08:12 Glucose (Fingerstick) 92 mg/dL (70-99) 120 mg/dL (70-99) 157 mg/dL (70-99) 97 mg/dL (70-99) Objective Assessment Recent 1 st toe amp with developing gangrene, s/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 (h/o MSSA, Enterobacter and VRE). ESR 90. S/p Right first toe open ray amputation wound debridement with amputation of his second toe including excision of the metatarsal head and proximal and mid metatarsal bone 12/05. Right foot wound VAC dressing. Right lateral malleolus wound s/p sharp excisional debridement removing necrotic subcutaneous tissue, 11/02. -11/02. Enterobacter aerogenes, Cipro sensitive, VRE (linezolid & Dapto sensistive; PCN resistent) and Gram variable nuria not ID. Ck 25 on 12/07 PAD s/p angio 11/03. ESRD/HD Diarrhea/loose stools. C. diff neg 11/28 Thrombocytopenia - on Zyvox Plan Plan of Care Discharging to [facility] when can be arranged however have issues with cost of Daptomycin Zyvox causes issue with Thrombocytopenia so not an option Continue Dapto and meropenem for min 4 weeks Rx written When ready for dc home Every Wednesday CBC, ESR, CPK.cmp Fax results to [phone] f/u appt with us in 1-2 weeks f/u with vascular as directed HBO therapy - wound care team following Attending Co-Sign The patient was seen and interviewed as well as examined at the bedside. The chart was reviewed. The case was discussed. Agree with the plan of care. SHAVON KNAPP APRN Dec 10, 2018 10:43 ROD MONTAGUE MD Dec 10, 2018 14:57
[2018-12-10 11:00] VITALS: BP 114/52
[2018-12-10] MEDS: HYDROcodone/APAP 5/325MG 1 TAB TABLET PO PRN ×3 (11:38→20:36)
[2018-12-10 15:12] VITALS: BP 118/60
[2018-12-10] MEDS: MEROPENEM 500 MG in IV NORMAL SALINE 50ML 50 ML IV SCH (16:50)
[2018-12-10 19:10] VITALS: BP 102/52
[2018-12-10] MEDS: ATORVASTATIN CALCIUM 40 MG TABLET. PO SCH (20:30)
[2018-12-10] MEDS: PREGABALIN 25 MG CAPSULE PO SCH (20:30)
[2018-12-10 23:49] VITALS: BP 128/44
[2018-12-11] MEDS: HYDROcodone/APAP 5/325MG 1 TAB TABLET PO PRN ×4 (02:59→19:18)
[2018-12-11 03:28] VITALS: BP 120/34
[2018-12-11] MEDS: ONDANSETRON ODT 4 MG TAB.RAPDIS. PO SCH ×3 (07:21→17:10)
[2018-12-11] MEDS: METOCLOPRAMIDE ORAL SOLN 10 MG/10 ML SOLUTION. PO SCH ×4 (07:22→21:01)
[2018-12-11 07:39] VITALS: BP 128/69
[2018-12-11] MEDS: INSULIN LISPRO 300 UNITS/3 ML INSULN.PEN. SQ SCH ×3 (08:00→17:00)
--- NOTE | 2018-12-11 09:01 | PDOC ---
Infectious Disease Note Subjective Subjective Comfortable, denies pain/muscle aches Enjoyed the football game yesterday Denies F/C/N/V Some loose stools ROS ROS per HPI Vital Sign Vital Signs Vital Signs Date Time Temp Pulse Resp B/P (MAP) Pulse Ox O2 Delivery O2 Flow Rate FiO2 12/11/18 07:39 97.6 56 18 128/69 (88) 98 Nasal Cannula 2.0 97.6 Physical Exam PHYSICAL EXAM GENERAL: Propped up in bed, alert, watching TV HEENT: Oral cavity clear NECK: Supple. LUNGS: Clear HEART: S1, S2 ABDOMEN: Obese, soft, NT, BS present EXTREMITIES: 1+ edema BLE, right foot with vac in place RUE-AV fistula -unremarkable NEUROLOGIC: Alert and oriented x 3 SKIN: No rash Right tunnelled RIJ (12/09) clean Labs Lab Laboratory Tests Test 12/10/18 11:20 12/10/18 17:01 12/10/18 20:28 12/11/18 07:06 Glucose (Fingerstick) 172 mg/dL (70-99) 153 mg/dL (70-99) 156 mg/dL (70-99) 107 mg/dL (70-99) Objective Assessment s/p right first toe open ray amputation wound debridement with amputation of his second due to further developing gangrene on 12/05. Right foot wound VAC dressing. s/p right first toe open ray amputation due to infected gangrene, on 11/02. Enterobacter aerogenes, Cipro sensitive, VRE (linezolid & Dapto sensistive; PCN resistent) and Gram variable nuria not ID. s/p right lateral malleolus wound s/p sharp excisional debridement removing necrotic subcutaneous tissue, 11/02. PAD s/p angio 11/03. ESRD/HD Diarrhea/loose stools. C. diff neg 11/28 Thrombocytopenia - improved, off Zyvox Plan Plan of Care Continue Dapto and meropenem for min 4 weeks Rx written Zyvox causes issue with Thrombocytopenia so not an option Monitor for toxicities CPK 25 When ready for discharge: Every Wednesday CBC, ESR, CPK. CMP Fax results to [phone] f/u appt with us in 1-2 weeks f/u with vascular as directed HBO therapy - wound care team following Attending Co-Sign The patient was seen and interviewed as well as examined at the bedside. The chart was reviewed. The case was discussed. Agree with the plan of care. SHAVON KNAPP APRN Dec 11, 2018 09:01 ROD MONTAGUE MD Dec 11, 2018 15:42
[2018-12-11] MEDS: FOLIC/VIT B COMP W-C (RENAL) TABLET. PO SCH (09:08)
[2018-12-11] MEDS: ALLOPURINOL 100 MG TABLET. PO SCH (09:08)
[2018-12-11] MEDS: LACTOBACILLUS RHAMNOSUS GG 1 CAPSULE. PO SCH ×2 (09:08→21:01)
[2018-12-11] MEDS: CHOLECALCIFEROL (VITAMIN D3) 1,000 UNIT TABLET PO SCH (09:08)
[2018-12-11] MEDS: CLOPIDOGREL BISULFATE 75 MG TABLET PO SCH (09:08)
[2018-12-11] MEDS: SEVELAMER CARBONATE 800 MG TABLET. PO SCH ×3 (09:08→17:09)
[2018-12-11] MEDS: CYANOCOBALAMIN (VITAMIN B-12) 1,000 MCG TABLET. PO SCH (09:09)
[2018-12-11] MEDS: ASPIRIN CHEWABLE 81 MG TABLET. PO SCH (09:09)
[2018-12-11] MEDS: CARVEDILOL 3.125 MG TABLET. PO SCH ×2 (09:09→17:10)
[2018-12-11 10:54] VITALS: BP 119/61
--- NOTE | 2018-12-11 10:55 | PDOC ---
PROGRESS NOTES Subjective Subjective feels well. no nausea or vomiting. eating well. bowels are okay. comfortable. blood sugars okay Objective Objective Vital Signs Date Time Temp Pulse Resp B/P (MAP) Pulse Ox O2 Delivery O2 Flow Rate FiO2 12/11/18 09:09 56 128/69 12/11/18 08:00 Room Air 12/11/18 07:39 97.6 18 98 2.0 97.6 Intake and Output 12/11/18 07:01 Intake Total 1070 ml Balance 1070 ml Intake Oral 1020 ml IV Total 50 ml # Voids 1 # Bowel Movements 1 Physical Exam Abdomen: Soft, Other (obese) Heart: Normal S1, Normal S2 Extremities: No edema, Other (wound vac right foot) General: Alert HEENT: Atraumatic Lungs: Clear to auscultation Neuro: Normal speech Psych/Mental Status: Mental status NL Skin: No rashes Assessment Assessment Assessment chronic right foot wound with debridement of right first ray and 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 suspect due to zyvox. will avoid heparin products nausea and vomiting . resolved anemia of chronic disease Plan Plan of Care continue iv daptomycin and meropenem hemodialysis tomorrow continue wound care and wound vac dismiss tomorrow to SNF after dialysis Comment Review of Relevant I have reviewed the following items simeon (where applicable) has been applied. Labs Laboratory Tests Test 12/09/18 14:35 12/09/18 16:33 12/09/18 20:52 12/10/18 08:12 Glucose (Fingerstick) 92 mg/dL (70-99) 120 mg/dL (70-99) 157 mg/dL (70-99) 97 mg/dL (70-99) Test 12/10/18 11:20 12/10/18 17:01 12/10/18 20:28 12/11/18 07:06 Glucose (Fingerstick) 172 mg/dL (70-99) 153 mg/dL (70-99) 156 mg/dL (70-99) 107 mg/dL (70-99) Laboratory Tests Test 1/12/19 11:20 12/10/18 17:01 12/10/18 20:28 12/11/18 07:06 Glucose (Fingerstick) 172 mg/dL (70-99) 153 mg/dL (70-99) 156 mg/dL (70-99) 107 mg/dL (70-99) Medications Current Medications Acetaminophen (Tylenol) 325 mg PRN Q4HRS PRN PO MILD PAIN / TEMP Last administered on 12/03/18 00:58; Start 11/24/18 at 20:30 Allopurinol (Zyloprim) 100 mg DAILY PO Last administered on 12/11/18 09:08; Start 11/25/18 at 09:00 Aspirin (Children'S Aspirin) 81 mg DAILY PO Last administered on 12/11/18 09: 09; Start 11/25/18 at 09:00 Atorvastatin Calcium (Lipitor) 40 mg HS PO Last administered on 12/10/18 20:30 ; Start 11/24/18 at 21:00 Carvedilol (Coreg) 3.125 mg BIDWMEALS PO Last administered on 11/29/18 18:49; Start 11/24/18 at 21:00; Stop 11/30/18 at 10:19; Status DC Vitamin D (Vitamin D3) 1,000 unit DAILY PO Last administered on 12/11/18 09:08 ; Start 11/25/18 at 09:00 Clopidogrel Bisulfate (Plavix) 75 mg DAILY PO Last administered on 12/11/18 09 :08; Start 11/25/18 at 09:00 Cyanocobalamin (Vitamin B-12) 1,000 mcg DAILY PO Last administered on 09:09; Start 11/25/18 at 09:00 Acetaminophen/ Hydrocodone Bitart (Lortab 5/325) 1 tab PRN Q4HRS PRN PO MODERATE - SEVERE PAIN Last administered on 11/29/18 20:52; Start 11/24/18 at 20:30; Stop 11/30/18 at 11:04; Status DC Pregabalin (Lyrica) 50 mg HS PO Last administered on 11/30/18 20:18; Start at 21:00; Stop 12/01/18 at 12:12; Status DC Sevelamer Carbonate (Renvela) 800 mg TIDWMEALS PO Last administered on 09:08; Start 11/25/18 at 08:00 Vitamin B Complex/ Vitamin C (Krista-Beatriz) 1 tab DAILY PO Last administered on 09:08; Start 11/25/18 at 09:00 Lactobacillus Rhamnosus (Culturelle) 1 cap BID PO Last administered on 09:08; Start 11/24/18 at 21:00 Pantoprazole Sodium (Protonix) 40 mg DAILYAC PO Last administered on 12/10/18 08:46; Start 11/25/18 at 07:30 Insulin Human Lispro (HumaLOG) 0-5 UNITS TIDWMEALS SQ ; Start 11/24/18 at 21:00 ; Stop 11/24/18 at 21:57; Status DC Dextrose (Dextrose 50%-Water Syringe) 12.5 gm PRN Q15MIN PRN IV SEE COMMENTS; Start 11/24/18 at 20:45 Insulin Human Lispro (HumaLOG) 0-5 UNITS TIDWMEALS SQ ; Start 11/25/18 at 08:00 ; Stop 11/25/18 at 08:00; Status DC Insulin Human Lispro (HumaLOG) 0-5 UNITS BG 300-39... TIDWMEALS SQ Last administered on 12/10/18 11:44; Start 11/25/18 at 08:00 Collagenase (Santyl) 1 judi DAILY TP Last administered on 12/10/18 08:46; Start 11/25/18 at 10:00 Meropenem 500 mg/ Sodium Chloride 50 ml @ 100 mls/hr Q12HR IV ; Start at 21:00; Status UNV Daptomycin 690 mg/ Sodium Chloride 50 ml @ 100 mls/hr MoWeFr@1600 IV Last administered on 12/09/18 16:50; Start 11/25/18 at 16:00 Heparin Sodium (Porcine) (Heparin Sodium) 5,000 unit Q12HR SQ Last administered on 11/27/18at 20:28; Start 11/25/18 at 21:00; Stop 11/28/18 at 09 :44; Status DC Meropenem 500 mg/ Sodium Chloride 50 ml @ 100 mls/hr DAILY16 IV Last administered on 1/12/19at 16:50; Start 11/25/18 at 16:00 Linezolid (Zyvox) 600 mg BID PO Last administered on 11/28/18at 08:48; Start 11/25/18 at 11:00; Stop 11/28/18 at 10:04; Status DC Info (PHARMACY MONITORING -- do not chart) 1 each PRN DAILY PRN MC SEE COMMENTS ; Start 11/25/18 at 10:45; Stop 11/28/18 at 17:07; Status DC Sodium Chloride 1,000 ml @ 1,000 mls/hr Q1H PRN IV hypotension; Start at 14:30; Stop 11/25/18 at 20:30; Status DC Sodium Chloride 1,000 ml @ 400 mls/hr Q2H30M PRN IV PATENCY; Start 11/25/18 at 14:30; Stop 11/25/18 at 20:30; Status DC Info (PHARMACY MONITORING -- do not chart) 1 each PRN DAILY PRN MC SEE COMMENTS ; Start 11/25/18 at 14:45; Status UNV Info (PHARMACY MONITORING -- do not chart) 1 each PRN DAILY PRN MC SEE COMMENTS ; Start 11/25/18 at 14:45; Status UNV Ondansetron HCl (Zofran Odt) 4 mg PRN Q6HRS PRN PO NAUSEA/VOMITING Last administered on 12/01/18at 07:30; Start 11/27/18 at 02:15 Magnesium Sulfate 50 ml @ 25 mls/hr PRN DAILY PRN IV for Mag < 1.7 on am labs; Start 11/27/18 at 14:00 Sodium Chloride 1,000 ml @ 1,000 mls/hr Q1H PRN IV hypotension; Start at 09:05; Stop 11/28/18 at 15:04; Status DC Albumin Human 200 ml @ 200 mls/hr 1X PRN PRN IV Hypotension; Start 11/28/18 at 09:15; Stop 11/28/18 at 15:14; Status DC Sodium Chloride 1,000 ml @ 400 mls/hr Q2H30M PRN IV PATENCY; Start 11/28/18 at 09:05; Stop 11/28/18 at 21:04; Status DC Info (PHARMACY MONITORING -- do not chart) 1 each PRN DAILY PRN MC SEE COMMENTS ; Start 11/28/18 at 09:15; Stop 11/28/18 at 17:07; Status DC Info (PHARMACY MONITORING -- do not chart) 1 each PRN DAILY PRN MC SEE COMMENTS ; Start 11/28/18 at 09:15; Stop 12/02/18 at 15:15; Status DC Sodium Chloride 1,000 ml @ 1,000 mls/hr Q1H PRN IV hypotension; Start 11/29/18 at 16:30; Stop 11/29/18 at 23:00; Status DC Info (PHARMACY MONITORING -- do not chart) 1 each PRN DAILY PRN MC SEE COMMENTS ; Start 11/29/18 at 16:45; Status UNV Info (PHARMACY MONITORING -- do not chart) 1 each PRN DAILY PRN MC SEE COMMENTS ; Start 11/29/18 at 16:45; Status UNV Info (PHARMACY MONITORING -- do not chart) 1 each PRN DAILY PRN MC SEE COMMENTS ; Start 11/30/18 at 08:30 Magnesium Sulfate 50 ml @ 25 mls/hr 1X ONCE IV Last administered on 11/30/18at 10:44; Start 11/30/18 at 10:00; Stop 11/30/18 at 11:59; Status DC Darbepoetin Reinaldo (Aranesp) 100 mcg WEEKLYHS SQ Last administered on 12/07/18at 21 :54; Start 11/30/18 at 21:00 Tramadol HCl (Ultram) 25 mg PRN Q6HRS PRN PO MODERATE PAIN Last administered on 11/30/18at 23:44; Start 11/30/18 at 11:00; Stop 12/01/18 at 12:12; Status DC Nystatin (Nystop) 1 judi BID TP Last administered on 12/10/18at 20:44; Start 11/30 at 12:00 Sodium Chloride 1,000 ml @ 1,000 mls/hr Q1H PRN IV hypotension; Start 11/30/18 at 10:00; Stop 11/30/18 at 16:30; Status DC Albumin Human 200 ml @ 200 mls/hr 1X PRN PRN IV Hypotension; Start 11/30/18 at 10:00; Stop 11/30/18 at 16:30; Status DC Albumin Human 200 ml @ 100 mls/hr 1X ONCE IV Last administered on 11/30/18at 16 :45; Start 11/30/18 at 16:45; Stop 11/30/18 at 18:44; Status DC Albumin Human 500 ml @ 125 mls/hr Q4H IV Last administered on 12/01/18at 17:22; Start 12/01/18 at 12:00; Stop 12/01/18 at 19:59; Status DC Pregabalin (Lyrica) 25 mg HS PO Last administered on 12/10/18at 20:30; Start 12/01/18 at 21:00 Ondansetron HCl (Zofran Odt) 4 mg TIDAC PO Last administered on 12/11/18at 07:21 ; Start 12/01/18 at 16:30 Metoclopramide HCl (Reglan) 5 mg TIDACHC PO Last administered on 12/07/18at 08:35 ; Start 12/01/18 at 16:30; Stop 12/07/18 at 11:01; Status DC Acetaminophen/ Hydrocodone Bitart (Lortab 5/325) 0.5 tab PRN Q4HRS PRN PO MODERATE PAIN Last administered on 12/11/18at 07:22; Start 12/01/18 at 12:30 Sodium Chloride 1,000 ml @ 1,000 mls/hr Q1H PRN IV hypotension; Start 12/02/18 at 08:27; Stop 12/02/18 at 14:26; Status DC Albumin Human 200 ml @ 200 mls/hr 1X PRN PRN IV Hypotension; Start 12/02/18 at 08:30; Stop 12/02/18 at 14:29; Status DC Sodium Chloride 1,000 ml @ 400 mls/hr Q2H30M PRN IV PATENCY; Start 12/02/18 at 08:27; Stop 12/02/18 at 20:26; Status DC Info (PHARMACY MONITORING -- do not chart) 1 each PRN DAILY PRN MC SEE COMMENTS ; Start 12/02/18 at 08:30; Status UNV Info (PHARMACY MONITORING -- do not chart) 1 each PRN DAILY PRN MC SEE COMMENTS ; Start 12/02/18 at 08:30; Status UNV Ondansetron HCl (Zofran) 4 mg PRN Q6HRS PRN IV NAUSEA/VOMITING; Start 12/05/18 at 07:00; Stop 12/06/18 at 06:59; Status DC Morphine Sulfate (Morphine Sulfate) 1 mg PRN Q10MIN PRN IV SEVERE PAIN Last administered on 12/05/18at 09:39; Start 12/05/18 at 07:00; Stop 12/05/18 at 18:00; Status DC Ringer's Solution 1,000 ml @ 30 mls/hr Q24H IV ; Start 12/05/18 at 07:00; Stop 12/05/18 at 18:59; Status DC Lidocaine HCl (Xylocaine-Mpf 1% 2ml Vial) 2 ml PRN 1X PRN ID PRIOR TO IV START ; Start 12/05/18 at 07:00; Stop 12/05/18 at 07:01; Status DC Hydromorphone HCl (Dilaudid) 0.5 mg PRN Q10MIN PRN IV SEV PAIN, Second choice; Start 12/05/18 at 07:00; Stop 12/06/18 at 06:59; Status DC Carvedilol (Coreg) 3.125 mg BIDWMEALS PO Last administered on 12/11/18at 09:09; Start 12/03/18 at 08:00 Sodium Chloride 500 ml @ 30 mls/hr [id number] IV Last administered on 12/05/18at 11 :05; Start 12/05/18 at 06:30; Stop 12/06/18 at 06:29; Status DC Cefazolin Sodium 1 gm/Sodium Chloride 500 ml @ 500 mls/hr 1X ONCE IRR Last administered on 12/05/18at 07:45; Start 12/05/18 at 08:00; Stop 12/05/18 at 08:59; Status DC Sevoflurane (Ultane) 30 ml STK-MED ONCE IH ; Start 12/05/18 at 07:15; Stop at 07:16; Status DC Fentanyl Citrate (Fentanyl 2ml Vial) 100 mcg STK-MED ONCE .ROUTE ; Start at 07:15; Stop 12/05/18 at 07:17; Status DC Propofol 20 ml @ As Directed STK-MED ONCE IV ; Start 12/05/18 at 07:15; Stop 12/05 at 07:17; Status DC Lidocaine HCl (Lidocaine Pf 2% Vial) 5 ml STK-MED ONCE .ROUTE ; Start 12/05/18 at 07:15; Stop 12/05/18 at 07:17; Status DC Dexamethasone Sodium Phosphate (Decadron) 20 mg STK-MED ONCE .ROUTE ; Start 12/05 at 07:15; Stop 12/05/18 at 07:17; Status DC Ondansetron HCl (Zofran) 4 mg STK-MED ONCE .ROUTE ; Start 12/05/18 at 07:15; Stop 12/05/18 at 07:17; Status DC Lidocaine HCl 20 ml STK-MED ONCE .ROUTE ; Start 12/05/18 at 07:33; Stop 12/05/18 at 07:34; Status DC Cellulose (Surgicel Fibrillar 1x2) 1 each STK-MED ONCE .ROUTE ; Start 12/05/18 at 07:33; Stop 12/05/18 at 07:34; Status DC Phenylephrine HCl (PHENYLEPHRINE in 0.9% NACL PF) 1 mg STK-MED ONCE IV ; Start 12/05/18 at 07:56; Stop 12/05/18 at 07:58; Status DC Sodium Chloride 1,000 ml @ 1,000 mls/hr Q1H PRN IV hypotension; Start 12/05/18 at 08:31; Stop 12/05/18 at 14:30; Status DC Albumin Human 200 ml @ 200 mls/hr 1X PRN PRN IV Hypotension; Start 12/05/18 at 08:45; Stop 12/05/18 at 14:44; Status DC Sodium Chloride 1,000 ml @ 400 mls/hr Q2H30M PRN IV PATENCY Last administered on 12/05/18at 11:04; Start 12/05/18 at 08:31; Stop 12/05/18 at 20:30; Status DC Info (PHARMACY MONITORING -- do not chart) 1 each PRN DAILY PRN MC SEE COMMENTS ; Start 12/05/18 at 08:45; Status UNV Info (PHARMACY MONITORING -- do not chart) 1 each PRN DAILY PRN MC SEE COMMENTS ; Start 12/05/18 at 08:45; Status Cancel Morphine Sulfate (Morphine Sulfate) 4 mg STK-MED ONCE .ROUTE ; Start 12/05/18 at 09:35; Stop 12/05/18 at 09:37; Status DC Metoclopramide HCl (Reglan Oral Solution) 5 mg QIDACHS PO Last administered on 12/11/18at 07:22; Start 12/07/18 at 11:30 Sodium Chloride 1,000 ml @ 1,000 mls/hr Q1H PRN IV hypotension; Start 12/07/18 at 16:46; Stop 12/07/18 at 22:45; Status DC Sodium Chloride 1,000 ml @ 400 mls/hr Q2H30M PRN IV PATENCY; Start 12/07/18 at 16:46; Stop 12/08/18 at 04:45; Status DC Info (PHARMACY MONITORING -- do not chart) 1 each PRN DAILY PRN MC SEE COMMENTS ; Start 12/07/18 at 17:00 Sodium Chloride 1,000 ml @ 1,000 mls/hr Q1H PRN IV hypotension; Start 12/09/18 at 07:50; Stop 12/09/18 at 13:49; Status DC Sodium Chloride 1,000 ml @ 400 mls/hr Q2H30M PRN IV PATENCY; Start 12/09/18 at 07:50; Stop 12/09/18 at 19:49; Status DC Info (PHARMACY MONITORING -- do not chart) 1 each PRN DAILY PRN MC SEE COMMENTS ; Start 12/09/18 at 08:00; Status UNV Info (PHARMACY MONITORING -- do not chart) 1 each PRN DAILY PRN MC SEE COMMENTS ; Start 12/09/18 at 08:00; Status UNV Lidocaine/ Epinephrine (LIDOCAINE 1%-EPI 1:100,000 Multi-Dose) 20 ml STK-MED ONCE .ROUTE ; Start 12/09/18 at 12:59; Stop 12/09/18 at 13:01; Status DC Lidocaine/ Epinephrine (LIDOCAINE 1%-EPI 1:100,000 Multi-Dose) 20 ml 1X ONCE IJ Last administered on 12/09/18at 13:37; Start 12/09/18 at 13:15; Stop at 13:21; Status DC Heparin Sodium (Porcine) (Hep Lock Adult) 500 unit STK-MED ONCE IV ; Start 12/09 at 13:17; Stop 12/09/18 at 13:19; Status DC Heparin Sodium (Porcine) (Hep Lock Adult) 500 unit 1X ONCE IV Last administered on 12/09/18at 13:40; Start 12/09/18 at 13:30; Stop 12/09/18 at 13:31 ; Status DC Active Scripts Active Zofran (Ondansetron Hcl) 4 Mg Tablet 1 Tab PO Q6HRS Zyvox (Linezolid) 600 Mg Tablet 600 Mg PO BID 30 Days Hydrocodone-Apap 5-325 (Hydrocodone Bit/Acetaminophen) 1 Tab Tablet 1 Tab PO PRN Q4HRS PRN 30 Days Aspirin Ec (Aspirin) 81 Mg Tablet.dr 81 Mg PO DAILYWBKFT 30 Days [Pantoprazole] 40 MG Tablet.dr 40 Mg PO DAILYAC 30 Days Humalog (Insulin Lispro) 100 Unit/1 Ml Insuln.pen 0 Units SQ TIDWMEALS 30 Days BG 150-199= 1 units 200-299= 2 units 300-399= 4 units 400-499= 6 units ac tid sliding scale Culturelle (Lactobacillus Rhamnosus Gg) 1 Each Cap.sprink 1 Cap PO BID 30 Days Tylenol (Acetaminophen) 325 Mg Tablet 325 Mg PO PRN Q4HRS PRN 30 Days Carvedilol (Carvedilol) 3.125 Mg Tablet 3.125 Mg PO BIDWMEALS 30 Days Renvela (Sevelamer Carbonate) 800 Mg Tablet 800 Mg PO TIDWMEALS 30 Days Pantoprazole Sodium 40 Mg Tablet.dr 40 Mg PO DAILYAC 30 Days Krista-Beatriz Tablet (Folic Acid/Vitamin B Comp W-C) 0.8 Mg Tablet 1 Tab PO DAILY 30 Days Reported Vitamin B-12 (Cyanocobalamin (Vitamin B-12)) 1,000 Mcg Tablet 1 Tab PO DAILY Allopurinol 100 Mg Tablet 1 Tab PO DAILY Renal Caps Softgel (Folic Acid/Vitamin B Comp W-C) 1 Mg Capsule 1 Cap PO DAILY Acidophilus Lactobacilli (Lactobacillus Acidophilus) 1 Each Capsule 1 Each PO BID Protonix (Pantoprazole Sodium) 20 Mg Tablet.dr 40 Mg PO DAILY Renvela (Sevelamer Carbonate) 800 Mg Tablet 800 Mg PO TIDWMEALS Lyrica (Pregabalin) 50 Mg Capsule 50 Mg PO HS Tylenol (Acetaminophen) 325 Mg Tablet 1 Tab PO PRN Q4HRS Hydrocodone-Apap 5-325 (Hydrocodone Bit/Acetaminophen) 1 Tab Tablet 1 Tab PO PRN Q4HRS PRN Aspirin 81 Mg Tab.chew 81 Mg PO DAILY Carvedilol (Carvedilol) 3.125 Mg Tablet 3.125 Mg PO BIDWMEALS Lipitor (Atorvastatin Calcium) 40 Mg Tablet 40 Mg PO HS Clopidogrel (Clopidogrel Bisulfate) 75 Mg Tablet 75 Mg PO DAILY Vitamin D (Cholecalciferol (Vitamin D3)) 2,000 Unit Capsule 1 Cap PO DAILY [place] 5-325 Tablet (Acetaminophen/Hydrocodone Bitart) 1 Each Tablet 1 Tab PO PRN Q4HRS PRN Lyrica (Pregabalin) 50 Mg Capsule 25 Mg PO HS Clopidogrel (Clopidogrel Bisulfate) 75 Mg Tablet 1 Tab PO DAILY Atorvastatin Calcium 40 Mg Tablet 40 Mg PO HS Allopurinol 100 Mg Tablet 1 Tab PO DAILY Vitamin B-12 (Cyanocobalamin (Vitamin B-12)) 1,000 Mcg Tablet 1 Tab PO DAILY Vitamin D-3 (Cholecalciferol (Vitamin D3)) 2,000 Unit Capsule 1,000 Unit PO DAILY Vitals/I & O Vital Sign - Last 24 Hours 12/10/18 12/10/18 12/10/18 12/10/18 11:00 11:38 15:12 15:26 Temp 98.6 98.5 98.6 98.5 Pulse 61 60 Resp 16 20 24 20 B/P (MAP) 114/52 (72) 118/60 (79) Pulse Ox 96 100 96 O2 Delivery Room Air Room Air Room Air Room Air 12/10/18 12/10/18 12/10/18 12/10/18 16:47 19:10 20:00 20:36 Temp 98.8 98.8 Pulse 60 68 Resp 18 18 B/P (MAP) 118/60 102/52 (69) Pulse Ox 97 97 O2 Delivery Room Air Room Air Room Air O2 Flow Rate 2.0 2.0 12/10/18 12/11/18 12/11/18 12/11/18 23:49 02:59 03:28 03:59 Temp 98.9 98.6 98.9 98.6 Pulse 60 59 Resp 17 18 18 18 B/P (MAP) 128/44 (72) 120/34 (62) Pulse Ox 97 97 96 96 O2 Delivery Room Air Room Air Nasal Cannula Room Air O2 Flow Rate 2.0 2.0 2.0 12/11/18 12/11/1812/11/19 07:39 08:00 09:09 Temp 97.6 97.6 Pulse 56 56 Resp 18 B/P (MAP) 128/69 (88) 128/69 Pulse Ox 98 O2 Delivery Nasal Cannula Room Air O2 Flow Rate 2.0 Intake and Output 12/10/18 12/10/18 12/11/18 15:01 23:01 07:01 Intake Total 820 ml 50 ml 200 ml Balance 820 ml 50 ml 200 ml KIMI TIDWELL MD Dec 11, 2018 10:55
--- NOTE | 2018-12-11 11:08 | DISCH ---
DISCHARGE DISCHARGE INFORMATION: DISCHARGE DATE: Dec 12, 2018 FINAL DIAGNOSIS osteomyelitis right foot with right foot wound and PAD CONDITION ON DISCHARGE: Stable CODE STATUS: Code Status: Full DETENTION: SNF STAY <30 DAYS: Yes POST DISCHARGE ORDERS: ACTIVITY ORDERS: Activity as tolerated, Other, see below WEIGHT BEARING STATUS: Non weight bearing, Other, see below DIET AFTER DISCHARGE: ada and renal diet WOUND/INCISION CARE: Other, see below (change wound vac every m-w-f. continue same wound care as [facility]. arrange HBO RX via wound care clinic at [facility]) OTHER ORDERS: hemodialysis every m-w-f CHECKS AFTER DISCHARGE: CHECKS AFTER DISCHARGE: Check blood press - daily, Check blood sugar, ac/hs, Weigh Yourself Daily FOLLOW-UP: PHYSICIAN FOLLOW-UP: dr. felix in [address] Prado in 1 to 2 weeks ADDITIONAL FOLLOW-UP: cbc,cmp,cpk,sedrate every Wednesday. fax results to dr. Prado fax [phone] LAB ORDERS FOR FOLLOW-UP: see above lab tests TREATMENT/EQUIPMENT ORDERS: ADAPTIVE EQUIPMENT NEEDED: None Physical Therapy For: Other: (off load right foot) Occupational Therapy For: Evaluation/Treatment DISCHARGE MEDICATIONS: Home Meds Active Scripts Ondansetron Hcl (ZOFRAN) 4 Mg Tablet, 1 TAB PO Q6HRS for nausea or vomiting, # 20 TAB Prov:KIMI STREET MD 11/28/18 Aspirin (ASPIRIN EC) 81 Mg Tablet., 81 MG PO DAILYWBKFT for PAD for 30 Days, # 30 TAB.SR Prov:KIMI STREET MD 11/11/18 [Pantoprazole] 40 MG TABLET. No Conflict Check, 40 MG PO DAILYAC for gerd for 30 Days Prov:KIMI STREET MD 11/11/18 Insulin Lispro (HUMALOG) 100 Unit/1 Ml Insuln.pen, 0 UNITS SQ TIDWMEALS for diabetes for 30 Days, EACH BG 150-199= 1 units 200-299= 2 units 300-399= 4 units 400-499= 6 units ac tid sliding scale Prov:KIMI STREET MD 11/11/18 Lactobacillus Rhamnosus Gg (CULTURELLE) 1 Each Cap.sprink, 1 CAP PO BID for probiotic for 30 Days, #60 CAP Prov:KIMI STREET MD 11/11/18 Acetaminophen (TYLENOL) 325 Mg Tablet, 325 MG PO PRN Q4HRS PRN for MILD PAIN / TEMP for 30 Days, TAB Prov:KIMI STREET MD 08/19/18 Carvedilol (CARVEDILOL ) 3.125 Mg Tablet, 3.125 MG PO BIDWMEALS for 30 Days, # 60 TAB Prov:KIMI STREET MD 01/15/18 Sevelamer Carbonate (RENVELA) 800 Mg Tablet, 800 MG PO TIDWMEALS for 30 Days, # 90 TAB Prov:KIMI STREET MD 09/26/17 Pantoprazole Sodium (PANTOPRAZOLE SODIUM) 40 Mg Tablet.dr, 40 MG PO DAILYAC for 30 Days, #30 TAB.SR Prov:KIMI STREET MD 09/26/17 Folic Acid/Vitamin B Comp W-C (HARPREET-MORA TABLET) 0.8 Mg Tablet, 1 TAB PO DAILY for 30 Days, #30 TAB Prov:KIMI STREET MD 09/26/17 Reported Medications Cyanocobalamin (Vitamin B-12) (VITAMIN B-12) 1,000 Mcg Tablet, 1 TAB PO DAILY for supplement, #30 TAB 2 Refills 11/24/18 Allopurinol (ALLOPURINOL) 100 Mg Tablet, 1 TAB PO DAILY for gout, #90 TAB 3 Refills 11/24/18 Folic Acid/Vitamin B Comp W-C (RENAL CAPS SOFTGEL) 1 Mg Capsule, 1 CAP PO DAILY for renal vitamin, #90 CAP 3 Refills 11/24/18 Lactobacillus Acidophilus (Acidophilus Lactobacilli) 1 Each Capsule, 1 EACH PO BID for prophylaxis, CAP 11/24/18 Pantoprazole Sodium (PROTONIX) 20 Mg Tablet.dr, 40 MG PO DAILY for GERD, TAB 11/24/18 Sevelamer Carbonate (RENVELA) 800 Mg Tablet, 800 MG PO TIDWMEALS for ESRD, TAB 11/24/18 Pregabalin (LYRICA) 50 Mg Capsule, 50 MG PO HS for neuropathy, CAP 11/24/18 Acetaminophen (TYLENOL) 325 Mg Tablet, 1 TAB PO PRN Q4HRS for pain/temp, #30 TAB 11/24/18 Aspirin (ASPIRIN) 81 Mg Tab.chew, 81 MG PO DAILY for prophylaxis, TAB.CHEW 11/24/18 Carvedilol (CARVEDILOL ) 3.125 Mg Tablet, 3.125 MG PO BIDWMEALS for CARDIAC, TAB 11/24/18 Atorvastatin Calcium (LIPITOR) 40 Mg Tablet, 40 MG PO HS for FOR CHOLESTEROL, # 30 TAB 0 Refills 11/24/18 Clopidogrel Bisulfate (CLOPIDOGREL) 75 Mg Tablet, 75 MG PO DAILY for TO PREVENT BLOOD CLOTS, #30 TAB 0 Refills 11/24/18 Cholecalciferol (Vitamin D3) (VITAMIN D) 2,000 Unit Capsule, 1 CAP PO DAILY for per Dr. Street's H&P, #30 CAP 3 Refills 11/01/18 Pregabalin (LYRICA) 50 Mg Capsule, 25 MG PO HS for per Dr. street's H&P, CAP 11/01/18 Clopidogrel Bisulfate (CLOPIDOGREL) 75 Mg Tablet, 1 TAB PO DAILY for per Dr. street's H&P, #90 TAB 1 Refill 11/01/18 Atorvastatin Calcium (ATORVASTATIN CALCIUM) 40 Mg Tablet, 40 MG PO HS for FOR CHOLESTEROL, #30 TAB 0 Refills 10/12/18 Allopurinol (ALLOPURINOL) 100 Mg Tablet, 1 TAB PO DAILY, #30 TAB 5 Refills 09/13/17 Cyanocobalamin (Vitamin B-12) (VITAMIN B-12) 1,000 Mcg Tablet, 1 TAB PO DAILY, # 30 TAB 2 Refills 09/13/17 Cholecalciferol (Vitamin D3) (VITAMIN D-3) 2,000 Unit Capsule, 1000 UNIT PO DAILY, CAP 09/13/17 Discontinued Reported Medications Hydrocodone Bit/Acetaminophen (HYDROCODONE-APAP 5-325 ) 1 Tab Tablet, 1 TAB PO PRN Q4HRS PRN for PAIN, TAB 0 Refills 11/24/18 Hydrocodone/Apap 5-325 (NORCO 5-325 TABLET) 1 Each Tablet, 1 TAB PO PRN Q4HRS PRN for PAIN, TAB 0 Refills 11/01/18 Discontinued Scripts Hydrocodone Bit/Acetaminophen (HYDROCODONE-APAP 5-325 ) 1 Tab Tablet, 1 TAB PO PRN Q4HRS PRN for MODERATE - SEVERE PAIN for 30 Days, #30 TAB Prov:KIMI STREET MD 11/11/[address] MD Dec 11, 2018 11:08
--- NOTE | 2018-12-11 11:21 | PDOC ---
Provider Note Provider Note discharge summary dictated # [id number] KIMI TIDWELL MD Dec 11, 2018 11:21
[2018-12-11] MEDS: COLLAGENASE 250 UNIT/GM TOPICAL OINTMENT 30GM TUBE. TP SCH (12:31)
[2018-12-11] MEDS: NYSTATIN TOPICAL POWDER 15GM BOTTLE. TP SCH ×2 (12:31→21:00)
--- NOTE | 2018-12-11 12:36 | DS ---
DATE OF DISCHARGE: DATE OF ANTICIPATED DISMISSAL: 12/12/2017 CONSULTANTS: Include Dr. Carmen Matthews, Dr. Jay Ty, Dr. Rose, Dr. Bear, Dr. James, Dr. Bar, Dr. Alex Muir, Dr. Celina Byers. PROCEDURE: He had a right first toe open ray amputation wound debridement with amputation of the second toe, including excision of the metatarsal head, proximal and mid metatarsal bone and right foot wound VAC dressing applied. FINAL DIAGNOSES: 1. Chronic right foot wound with necrosis and underwent debridement of the first right great toe with amputation of the second toe and proximal to mid second metatarsal for osteomyelitis of the right great toe and first metatarsal. 2. Right ankle wound with granulation tissue. 3. Severe peripheral arterial disease involving right lower extremity, especially involving the vessels below the knee including the tibial and pedal vessels. 4. End-stage renal disease on hemodialysis Mondays, Wednesdays and Fridays. 5. Diabetes mellitus type 2 with peripheral neuropathy. 6. Morbid obesity. 7. Debility. 8. Hypomagnesemia. 9. Thrombocytopenia due to Zyvox which resolved. 10. Nausea and vomiting, resolved with Zofran and metoclopramide. 11. Anemia of chronic disease. HOSPITAL COURSE: The patient is a 77-year-old morbidly obese -[place] male who has diabetes mellitus type 2, hypertension, peripheral arterial disease, and end-stage renal disease, on hemodialysis, who has a history of an osteomyelitis of the right first toe and first metatarsal and nonhealing right great toe wound, followed at the [facility] at [facility] who had been treated with IV meropenem and Zyvox and had a wound VAC, was at the shelter facility when he saw the Infectious Disease doctor in the office and noted that he had necrotic area on his right foot wound and the wound looked worse, so he was subsequently admitted to [facility] on 11/17/2018. Seen in consultation by Dr. Celina Byers and the patient eventually underwent a procedure, which included a right first toe open ray amputation with wound debridement and amputation of the second toe, including excision of the metatarsal head and proximal mid metatarsal bone with a wound VAC applied to his right foot. The patient was also noted to have thrombocytopenia, thought to be secondary to Zyvox which was discontinued. His platelet count normalized. Heparin products were discontinued. He was on subcutaneous heparin but he had thrombocytopenia before that was started. He was seen by Dr. Matthews for Hematology for that. In addition, he had some nausea, vomiting, seen by Dr. Ty and was treated with Zofran and metoclopramide with resolution of nausea and vomiting. He is eating well, also seen by Cardiology in consultation as he has a history of permanent atrial fibrillation, but not a candidate for Coumadin due to his fall risk. Seen by the wound care doctor also, Dr. Ortega and also seen by Dr. Bear and Dr. James for Nephrology, he was dialyzed Mondays, Wednesdays, and Fridays. The thought was to go ahead with hyperbaric oxygen treatment but those treatments had to be given 5 days a week and this is no way that can be done as he is dialyzed 3 days a week. So I asked his senior case manager and addiction social worker to work on that and speak with the wound care physician and Dr. James, the medical typist and also to contact Dr. Byers to let her know that we are unable to do hyperbaric oxygen treatment currently because of the hemodialysis interfering with it 3 days a week. In addition, he had his wound VAC applied as mentioned. He was seen by Dr. Bar and Dr. Alex Muir for Infectious Disease and his antibiotics were changed to IV daptomycin and meropenem and Zyvox was discontinued due to thrombocytopenia. We had problems getting the patient be admitted to the shelter facility because of the cost of the daptomycin, but finally it was worked out with the insurance company and he will be dismissed on 12/12/2018 after dialysis, but then will have the IV daptomycin available and will be dismissed tomorrow, 12/12/2018. Therefore, he will be dismissed on Zofran 4 mg before meals t.i.d. and every 6 hours p.r.n., metoclopramide 5 mg before meals t.i.d. and at bedtime, [place] 5/325 one half tablet every 6 hours p.r.n. for severe pain, 30 tablets, no refill, daptomycin 690 mg IV after hemodialysis Mondays, Wednesdays, and Fridays for 4 weeks and that is being given at 1600 and meropenem 500 mg IV every day at 1600 for about 4 weeks total. Stop the Zyvox. He also will be dismissed on Tylenol 325 mg every 4 hours, allopurinol 100 mg every day, aspirin 81 mg every day, atorvastatin 40 mg at bedtime, carvedilol 3.125 mg b.i.d., vitamin D 1000 units every day, Plavix 75 mg every day, vitamin B12 1000 mcg daily. Nephro-Beatriz 1 everyday, Humalog insulin sliding scale low dose as written before meals t.i.d., lactobacilli 1 b.i.d., nystatin powder applied b.i.d., Protonix 40 mg every day, Lyrica 25 mg at bedtime and Renvela 800 mg t.i.d. with meals. An order for him to follow up with Dr. Byers in [address] Bar in 1-2 weeks. He will have a CBC, CMP, sed rate, and CPK every Wednesday and results will be faxed to Dr. Bar. He will be going to shelter facility tomorrow. Continue with outpatient hemodialysis and wound care and his wound VAC to be changed every Wednesday, Wednesday and Wednesday. The patient is aware that if his wound does not heal with the current measures that he may need a right below-knee amputation. The patient and daughter are aware of that. JAY TIDWELL MD DR: LOBO/dianna JOB#: [id number] / [id number]
--- NOTE | 2018-12-11 14:05 | PDOC ---
SUBJECTIVE ROS No complaints, Jose dc to [facility] tomorrow OBJECTIVE Vital Signs Vital Signs Date Time Temp Pulse Resp B/P (MAP) Pulse Ox O2 Delivery O2 Flow Rate FiO2 12/11/18 10:54 98.5 60 18 119/61 (80) 99 Room Air 98.5 12/11/18 07:39 2.0 I & 0 Intake and Output 12/11/18 07:01 Intake Total 1070 ml Balance 1070 ml Intake Oral 1020 ml IV Total 50 ml # Voids 1 # Bowel Movements 1 PHYSICAL EXAM Physical Exam GENERAL: in chair , NAD HEENT: Oral cavity moist NECK: Supple. LUNGS: Clear HEART: S1, S2 ABDOMEN: Obese, soft, NT, BS present EXTREMITIES: 1+ edema BLE, right foot with vac in place RUE-AV fistula ,Right tunnelled RIJ (12/09) NEUROLOGIC: Alert and oriented x 3 SKIN: No rash DIAGNOSIS/ASSESSMENT Assessment & Plan ESRD- MWF Dialysis Tomorrow as per schedule Wound care requesting to Switch to TTS as OP , will need HBO and ABx SW following s/p right first toe amputation ,wound debridement with amputation of his second On Abx - ID and wound care following HBO therapy - wound care team following PAD s/p angio 11/03. Diarrhea/loose stools. C. diff neg 11/28 Thrombocytopenia - improved, off Zyvox Discussed with RN COMMENT/RELEVANT DATA Meds Current Medications Medications (Trade) Dose Ordered Sig/Bhavesh Start Time Stop Time Status Last Admin Dose Admin Acetaminophen (Tylenol) 325 mg PRN Q4HRS PRN 11/24/18 20:30 12/03/18 00:58 325 MG Acetaminophen/ Hydrocodone Bitart (Lortab 5/325) 0.5 tab PRN Q4HRS PRN 12/01/18 12:30 12/11/18 12:32 0.5 TAB Albumin Human 200 ml @ 200 mls/hr 1X PRN PRN 12/05/18 08:45 12/05/18 14:44 DC Allopurinol (Zyloprim) 100 mg DAILY 11/25/18 09:00 12/11/18 09:08 100 MG Aspirin (Children'S Aspirin) 81 mg DAILY 11/25/18 09:00 12/11/18 09:09 81 MG Atorvastatin Calcium (Lipitor) 40 mg HS 11/24/18 21:00 12/10/18 20:30 40 MG Carvedilol (Coreg) 3.125 mg BIDWMEALS 12/03/18 08:00 12/11/18 09:09 3.125 MG Cefazolin Sodium 1 gm/Sodium Chloride 500 ml @ 500 mls/hr 1X ONCE 12/05/18 08:00 12/05/18 08:59 DC 12/05/18 07:45 Cellulose (Surgicel Fibrillar 1x2) 1 each STK-MED ONCE 12/05/18 07:33 12/05/18 07:34 DC Clopidogrel Bisulfate (Plavix) 75 mg DAILY 11/25/18 09:00 12/11/18 09:08 75 MG Collagenase (Santyl) 1 judi DAILY 11/25/18 10:00 12/11/18 12:31 1 JUDI Cyanocobalamin (Vitamin B-12) 1,000 mcg DAILY 11/25/18 09:00 12/11/18 09:09 1,000 MCG Daptomycin 690 mg/ Sodium Chloride 50 ml @ 100 mls/hr MoWeFr@1600 11/25/18 16:00 12/09/18 16:50 100 MLS/HR Darbepoetin Reinaldo (Aranesp) 100 mcg WEEKLYHS 11/30/18 21:00 12/07/18 21:54 100 MCG Dexamethasone Sodium Phosphate (Decadron) 20 mg STK-MED ONCE 12/05/18 07:15 12/05/18 07:17 DC Dextrose (Dextrose 50%-Water Syringe) 12.5 gm PRN Q15MIN PRN 11/24/18 20:45 Fentanyl Citrate (Fentanyl 2ml Vial) 100 mcg STK-MED ONCE 12/05/18 07:15 12/05/18 07:17 DC Heparin Sodium (Porcine) (Hep Lock Adult) 500 unit 1X ONCE 12/09/18 13:30 12/09/18 13:31 DC 12/09/18 13:40 500 UNIT Heparin Sodium (Porcine) (Heparin Sodium) 5,000 unit Q12HR 11/25/18 21:00 11/28/18 09:44 DC 11/27/18 20:28 5,000 UNIT Hydromorphone HCl (Dilaudid) 0.5 mg PRN Q10MIN PRN 12/05/18 07:00 12/06/18 06:59 DC Info (PHARMACY MONITORING -- do not chart) 1 each PRN DAILY PRN 12/09/18 08:00 UNV Insulin Human Lispro (HumaLOG) 0-5 UNITS BG 300-39... TIDWMEALS 11/25/18 08:00 12/11/18 12:34 1 UNITS Lactobacillus Rhamnosus (Culturelle) 1 cap BID 11/24/18 21:00 12/11/18 09:08 1 CAP Lidocaine HCl 20 ml STK-MED ONCE 12/05/18 07:33 12/05/18 07:34 DC Lidocaine HCl (Lidocaine Pf 2% Vial) 5 ml STK-MED ONCE 12/05/18 07:15 12/05/18 07:17 DC Lidocaine HCl (Xylocaine-Mpf 1% 2ml Vial) 2 ml PRN 1X PRN 12/05/18 07:00 12/05/18 07:01 DC Lidocaine/ Epinephrine (LIDOCAINE 1%-EPI 1:100,000 Multi-Dose) 20 ml 1X ONCE 12/09/18 13:15 12/09/18 13:21 DC 12/09/18 13:37 10 ML Linezolid (Zyvox) 600 mg BID 11/25/18 11:00 11/28/18 10:04 DC 11/28/18 08:48 600 MG Magnesium Sulfate 50 ml @ 25 mls/hr 1X ONCE 11/30/18 10:00 11/30/18 11:59 DC 11/30/18 10:44 25 MLS/HR Meropenem 500 mg/ Sodium Chloride 50 ml @ 100 mls/hr DAILY16 11/25/18 16:00 12/10/18 16:50 100 MLS/HR Metoclopramide HCl (Reglan Oral Solution) 5 mg QIDACHS 12/07/18 11:30 12/11/18 12:32 5 MG Metoclopramide HCl (Reglan) 5 mg TIDACHC 12/01/18 16:30 12/07/18 11:01 DC 12/07/18 08:35 5 MG Morphine Sulfate (Morphine Sulfate) 4 mg STK-MED ONCE 12/05/18 09:35 12/05/18 09:37 DC Nystatin (Nystop) 1 judi BID 11/30/18 12:00 12/11/18 12:31 1 JUDI Ondansetron HCl (Zofran Odt) 4 mg TIDAC 12/01/18 16:30 12/11/18 12:32 4 MG Ondansetron HCl (Zofran) 4 mg STK-MED ONCE 12/05/18 07:15 12/05/18 07:17 DC Pantoprazole Sodium (Protonix) 40 mg DAILYAC 11/25/18 07:30 12/10/18 08:46 40 MG Phenylephrine HCl (PHENYLEPHRINE in 0.9% NACL PF) 1 mg STK-MED ONCE 12/05/18 07:56 12/05/18 07:58 DC Pregabalin (Lyrica) 25 mg HS 12/01/18 21:00 12/10/18 20:30 25 MG Propofol 20 ml @ As Directed STK-MED ONCE 12/05/18 07:15 12/05/18 07:17 DC Ringer's Solution 1,000 ml @ 30 mls/hr Q24H 12/05/18 07:00 12/05/18 18:59 DC Sevelamer Carbonate (Renvela) 800 mg TIDWMEALS 11/25/18 08:00 12/11/18 12:30 800 MG Sevoflurane (Ultane) 30 ml STK-MED ONCE 12/05/18 07:15 12/05/18 07:16 DC Sodium Chloride 1,000 ml @ 400 mls/hr Q2H30M PRN 12/09/18 07:50 12/09/18 19:49 DC Tramadol HCl (Ultram) 25 mg PRN Q6HRS PRN 11/30/18 11:00 12/01/18 12:12 DC 11/30/18 23:44 25 MG Vitamin B Complex/ Vitamin C (Krista-Beatriz) 1 tab DAILY 11/25/18 09:00 12/11/18 09:08 1 TAB Vitamin D (Vitamin D3) 1,000 unit DAILY 11/25/18 09:00 12/11/18 09:08 1,000 UNIT Lab Laboratory Tests Test 12/10/18 17:01 12/10/18 20:28 12/11/18 07:06 12/11/18 11:33 Glucose (Fingerstick) 153 mg/dL (70-99) 156 mg/dL (70-99) 107 mg/dL (70-99) 173 mg/dL (70-99) Results All relevant outside records, renal labs, imaging studies, telemetry/EKG's were reviewed. WAYLON GONZALEZ MD Dec 11, 2018 14:05
[2018-12-11 14:49] VITALS: BP 123/69
[2018-12-11] MEDS: MEROPENEM 500 MG in IV NORMAL SALINE 50ML 50 ML IV SCH (17:09)
[2018-12-11 19:05] VITALS: BP 138/71
[2018-12-11] MEDS: ACETAMINOPHEN 325 MG TABLET. PO PRN (19:18)
[2018-12-11] MEDS: PREGABALIN 25 MG CAPSULE PO SCH (21:01)
[2018-12-11] MEDS: ATORVASTATIN CALCIUM 40 MG TABLET. PO SCH (21:01)
[2018-12-11 23:40] VITALS: BP 141/70
[2018-12-12] VITALS (8 sets, daily range): BP systolic 98–138; BP diastolic 35–76
[2018-12-12] MEDS: ACETAMINOPHEN 325 MG TABLET. PO PRN (04:55)
[2018-12-12] MEDS: HYDROcodone/APAP 5/325MG 1 TAB TABLET PO PRN (04:55)
[2018-12-12 05:12] LABS: BASO # 0.1 x10^3/uL (0.0-0.2); BASO % 1 % (0-3); EOS # 0.7 x10^3/uL (0.0-0.7); EOS % 9 % (0-3); LYMPH # 1.4 x10^3/uL (1.0-4.8); LYMPH % 17 % (24-48); MEAN CORPUSCULAR HEMOGLOBIN 31 pg (25-35); MEAN CORPUSCULAR HGB CONC 34 g/dL (31-37); MEAN CORPUSCULAR VOLUME 91 fL (79-100); MONO # 0.5 x10^3/uL (0.0-1.1); MONO % 6 % (0-9); NEUT # 5.3 x10^3uL (1.8-7.7); NEUT % 67 % (31-73); PLATELET COUNT 251 x10^3/uL (140-400); RED BLOOD COUNT 2.27 x10^6/uL (4.30-5.70); RED CELL DISTRIBUTION WIDTH 18.4 % (11.5-14.5)
[2018-12-12 05:19] LABS: HEMATOCRIT 20.7 % (39.0-53.0)
[2018-12-12 05:35] LABS: ALBUMIN 2.2 g/dL (3.4-5.0); ALBUMIN/GLOBULIN RATIO 0.5 (1.0-1.7); CALCIUM 8.6 mg/dL (8.5-10.1); CREATININE 8.8 mg/dL (0.7-1.3); GFR 7.1; POTASSIUM 5.3 mmol/L (3.5-5.1); TOTAL BILIRUBIN 0.3 mg/dL (0.2-1.0); TOTAL PROTEIN 6.5 g/dL (6.4-8.2)
[2018-12-12] MEDS: INSULIN LISPRO 300 UNITS/3 ML INSULN.PEN. SQ SCH (08:00)
[2018-12-12] MEDS: LACTOBACILLUS RHAMNOSUS GG 1 CAPSULE. PO SCH (08:03)
[2018-12-12] MEDS: CHOLECALCIFEROL (VITAMIN D3) 1,000 UNIT TABLET PO SCH (08:03)
[2018-12-12] MEDS: FOLIC/VIT B COMP W-C (RENAL) TABLET. PO SCH (08:03)
[2018-12-12] MEDS: ALLOPURINOL 100 MG TABLET. PO SCH (08:03)
[2018-12-12] MEDS: METOCLOPRAMIDE ORAL SOLN 10 MG/10 ML SOLUTION. PO SCH ×2 (08:03→11:30)
[2018-12-12] MEDS: CLOPIDOGREL BISULFATE 75 MG TABLET PO SCH (08:04)
[2018-12-12] MEDS: SEVELAMER CARBONATE 800 MG TABLET. PO SCH ×2 (08:04→12:00)
[2018-12-12] MEDS: ASPIRIN CHEWABLE 81 MG TABLET. PO SCH (08:04)
[2018-12-12] MEDS: NYSTATIN TOPICAL POWDER 15GM BOTTLE. TP SCH (08:04)
[2018-12-12] MEDS: PANTOPRAZOLE 40 MG TABLET.DR. PO SCH (08:04)
[2018-12-12] MEDS: ONDANSETRON ODT 4 MG TAB.RAPDIS. PO SCH ×2 (08:04→11:30)
[2018-12-12] MEDS: CYANOCOBALAMIN (VITAMIN B-12) 1,000 MCG TABLET. PO SCH (08:04)
[2018-12-12] MEDS: CARVEDILOL 3.125 MG TABLET. PO SCH (08:05)
[2018-12-12] MEDS ORDERED: DIALYSIS PATIENT. MC PRN ×2 (08:45)
--- NOTE | 2018-12-12 08:52 | PDOC ---
Provider Note Provider Note Vascular S: Patient without complaints, plan to discharge to SNF today. O: Awake and alert VSS wound vac removed right foot, pink granulation tissue noted, some areas of slough. A/P: POD # 6 1. Right first toe open ray amputation wound debridement with amputation of his second toe including excision of the metatarsal head and proximal and mid metatarsal bone. 2. Right foot wound VAC dressing. Continue wound vac Antibiotics per ID Follow up in [facility] DILLON MALDONADO APRN Dec 12, 2018 08:52
--- NOTE | 2018-12-12 08:54 | NUR ---
SS following up with discharge planning. Pt has authorization with [employer] for transfer to [facility] today. SS met with pt and notified pt's daughter by phone, . Pt will discharge today and go to [facility] at 1500 via [facility] transport. Pt choice and rights forms signed by pt and placed in chart. Pt, pt's RN, and pt's daughter notified.
[2018-12-12] MEDS: COLLAGENASE 250 UNIT/GM TOPICAL OINTMENT 30GM TUBE. TP SCH (09:00)
[2018-12-12] MEDS ORDERED: IV NORMAL SALINE 1000ML BAG 1,000 ML IV PRN ×2 (09:00)
--- NOTE | 2018-12-12 09:24 | PDOC ---
Subjective: Subjective: Didn't eat breakfast because he was sleeping. No nausea. Says going to [facility] after dialysis. Objective: Vital Signs: Vital Signs Date Time Temp Pulse Resp B/P (MAP) Pulse Ox O2 Delivery O2 Flow Rate FiO2 12/12/18 08:05 60 138/63 12/12/18 07:00 97.5 18 97 Nasal Cannula 2.0 97.5 Labs: Laboratory Tests Test 12/11/18 11:33 12/11/18 16:55 12/11/18 20:38 12/12/18 05:00 Glucose (Fingerstick) 173 mg/dL 145 mg/dL 164 mg/dL White Blood Count 8.0 x10^3/uL Red Blood Count 2.27 x10^6/uL Hemoglobin 7.0 g/dL Hematocrit 20.7 % Mean Corpuscular Volume 91 fL Mean Corpuscular Hemoglobin 31 pg Mean Corpuscular Hemoglobin Concent 34 g/dL Red Cell Distribution Width 18.4 % Platelet Count 251 x10^3/uL Neutrophils (%) (Auto) 67 % Lymphocytes (%) (Auto) 17 % Monocytes (%) (Auto) 6 % Eosinophils (%) (Auto) 9 % Basophils (%) (Auto) 1 % Neutrophils # (Auto) 5.3 x10^3uL Lymphocytes # (Auto) 1.4 x10^3/uL Monocytes # (Auto) 0.5 x10^3/uL Eosinophils # (Auto) 0.7 x10^3/uL Basophils # (Auto) 0.1 x10^3/uL Erythrocyte Sedimentation Rate 73 Sodium Level 138 mmol/L Potassium Level 5.3 mmol/L Chloride Level 100 mmol/L Carbon Dioxide Level 28 mmol/L Anion Gap 10 Blood Urea Nitrogen 68 mg/dL Creatinine 8.8 mg/dL Estimated GFR (Cockcroft-Gault) 7.1 BUN/Creatinine Ratio 8 Glucose Level 166 mg/dL Calcium Level 8.6 mg/dL Total Bilirubin 0.3 mg/dL Aspartate Amino Transf (AST/SGOT) 37 U/L Alanine Aminotransferase (ALT/SGPT) 33 U/L Alkaline Phosphatase 230 U/L Creatine Kinase 35 U/L Total Protein 6.5 g/dL Albumin 2.2 g/dL Albumin/Globulin Ratio 0.5 Test 12/12/18 07:04 Glucose (Fingerstick) 130 mg/dL PE: GEN: NAD LUNGS: CTAB HEART: RRR ABD: S/ND/NT NEURO/PSYCH: A & O �3 A/P: N/v - resolved -- DC per primary. KARLA WATT Dec 12, 2018 09:24
--- NOTE | 2018-12-12 09:32 | PDOC ---
Infectious Disease Note Subjective Subjective Comfortable, denies pain/muscle aches Enjoyed the football game yesterday Denies F/C/N/V Some loose stools ROS ROS no n/v/d/ Vital Sign Vital Signs Vital Signs Date Time Temp Pulse Resp B/P (MAP) Pulse Ox O2 Delivery O2 Flow Rate FiO2 12/12/18 08:05 60 138/63 12/12/18 07:00 97.5 18 97 Nasal Cannula 2.0 97.5 Physical Exam PHYSICAL EXAM GENERAL: Propped up in bed, alert, watching TV HEENT: Oral cavity clear NECK: Supple. LUNGS: Clear HEART: S1, S2 ABDOMEN: Obese, soft, NT, BS present EXTREMITIES: 1+ edema BLE, right foot with vac in place RUE-AV fistula -unremarkable NEUROLOGIC: Alert and oriented x 3 SKIN: No rash Right tunnelled RIJ (12/09) clean Labs Lab Laboratory Tests Test 12/11/18 11:33 12/11/18 16:55 12/11/18 20:38 12/12/18 05:00 Glucose (Fingerstick) 173 mg/dL (70-99) 145 mg/dL (70-99) 164 mg/dL (70-99) White Blood Count 8.0 x10^3/uL (4.0-11.0) Red Blood Count 2.27 x10^6/uL (4.30-5.70) Hemoglobin 7.0 g/dL (13.0-17.5) Hematocrit 20.7 % (39.0-53.0) Mean Corpuscular Volume 91 fL (79-100) Mean Corpuscular Hemoglobin 31 pg (25-35) Mean Corpuscular Hemoglobin Concent 34 g/dL (31-37) Red Cell Distribution Width 18.4 % (11.5-14.5) Platelet Count 251 x10^3/uL (140-400) Neutrophils (%) (Auto) 67 % (31-73) Lymphocytes (%) (Auto) 17 % (24-48) Monocytes (%) (Auto) 6 % (0-9) Eosinophils (%) (Auto) 9 % (0-3) Basophils (%) (Auto) 1 % (0-3) Neutrophils # (Auto) 5.3 x10^3uL (1.8-7.7) Lymphocytes # (Auto) 1.4 x10^3/uL (1.0-4.8) Monocytes # (Auto) 0.5 x10^3/uL (0.0-1.1) Eosinophils # (Auto) 0.7 x10^3/uL (0.0-0.7) Basophils # (Auto) 0.1 x10^3/uL (0.0-0.2) Erythrocyte Sedimentation Rate 73 (0-15) Sodium Level 138 mmol/L (136-145) Potassium Level 5.3 mmol/L (3.5-5.1) Chloride Level 100 mmol/L (98-107) Carbon Dioxide Level 28 mmol/L (21-32) Anion Gap 10 (6-14) Blood Urea Nitrogen 68 mg/dL (8-26) Creatinine 8.8 mg/dL (0.7-1.3) Estimated GFR (Cockcroft-Gault) 7.1 BUN/Creatinine Ratio 8 (6-20) Glucose Level 166 mg/dL (70-99) Calcium Level 8.6 mg/dL (8.5-10.1) Total Bilirubin 0.3 mg/dL (0.2-1.0) Aspartate Amino Transf (AST/SGOT) 37 U/L (15-37) Alanine Aminotransferase (ALT/SGPT) 33 U/L (16-63) Alkaline Phosphatase 230 U/L (46-116) Creatine Kinase 35 U/L (39-308) Total Protein 6.5 g/dL (6.4-8.2) Albumin 2.2 g/dL (3.4-5.0) Albumin/Globulin Ratio 0.5 (1.0-1.7) Test 12/12/18 07:04 Glucose (Fingerstick) 130 mg/dL (70-99) Objective Assessment Recent 1 st toe amp with developing gangrene, s/p right first toe open ray amputation, s/p I and D , wound is large and clean, will try , likely may end up with BKA Right lateral malleolus wound s/p sharp excisional debridement removing necrotic subcutaneous tissue, 11/02. BC neg 11/02. enterobacter aerogenes,Cipro sensitive, enterococcus fecalis VRE, linezolid sensitive,Amp sens not available, daptomycin suscep,d/w micro Gram variable nuria id still pending PAD s/p angio recently ESRD/HD Diarrhea Plan Plan of Care Continue Dapto and meropenem for min 4 weeks Rx written Zyvox causes issue with Thrombocytopenia so not an option Monitor for toxicities CPK 25 When ready for discharge: Every Wednesday CBC, ESR, CPK. CMP Fax results to [phone] f/u appt with us in 1-2 weeks f/u with vascular as directed HBO therapy - wound care team following ROD MONTAGUE MD Dec 12, 2018 09:32
--- NOTE | 2018-12-12 10:16 | PDOC ---
SUBJECTIVE ROS No complaints, seen on HD OBJECTIVE Vital Signs Vital Signs Date Time Temp Pulse Resp B/P (MAP) Pulse Ox O2 Delivery O2 Flow Rate FiO2 12/12/18 10:03 97.3 60 16 129/65 97.3 12/12/18 07:00 97 Nasal Cannula 2.0 I & 0 Intake and Output 12/12/18 07:01 Intake Total 1240 ml Output Total 0 ml Balance 1240 ml Intake Oral 1240 ml Output Urine Total 0 ml PHYSICAL EXAM Physical Exam GENERAL: NAD HEENT: Oral cavity moist NECK: Supple. LUNGS: Clear HEART: S1, S2 ABDOMEN: Obese, soft, NT, BS present EXTREMITIES: 1+ edema BLE, right foot with vac in place RUE-AV fistula ,Right tunnelled RIJ (12/09) NEUROLOGIC: Alert and oriented x 3 SKIN: No rash DIAGNOSIS/ASSESSMENT Assessment & Plan ESRD- MWF Seen on HD, tolerating well , continue as Ordered Discussed with larriman helper SW following to switch to TTS as OP s/p right first toe amputation ,wound debridement with amputation of his second On Abx - ID and wound care following HBO therapy Anemia- Hgb 7 , PRBC with HD PAD s/p angio 11/03. Diarrhea/loose stools. C. diff neg 11/28 Thrombocytopenia - improved, off Zyvox Discussed with RN COMMENT/RELEVANT DATA Meds Current Medications Medications (Trade) Dose Ordered Sig/Bhavesh Start Time Stop Time Status Last Admin Dose Admin Acetaminophen (Tylenol) 325 mg PRN Q4HRS PRN 11/24/18 20:30 12/12/18 04:55 325 MG Acetaminophen/ Hydrocodone Bitart (Lortab 5/325) 0.5 tab PRN Q4HRS PRN 12/01/18 12:30 12/12/18 04:55 0.5 TAB Albumin Human 200 ml @ 200 mls/hr 1X PRN PRN 12/05/18 08:45 12/05/18 14:44 DC Allopurinol (Zyloprim) 100 mg DAILY 11/25/18 09:00 12/12/18 08:03 100 MG Aspirin (Children'S Aspirin) 81 mg DAILY 11/25/18 09:00 12/12/18 08:04 81 MG Atorvastatin Calcium (Lipitor) 40 mg HS 11/24/18 21:00 12/11/18 21:01 40 MG Carvedilol (Coreg) 3.125 mg BIDWMEALS 12/03/18 08:00 12/12/18 08:05 3.125 MG Cefazolin Sodium 1 gm/Sodium Chloride 500 ml @ 500 mls/hr 1X ONCE 12/05/18 08:00 12/05/18 08:59 DC 12/05/18 07:45 Cellulose (Surgicel Fibrillar 1x2) 1 each STK-MED ONCE 12/05/18 07:33 12/05/18 07:34 DC Clopidogrel Bisulfate (Plavix) 75 mg DAILY 11/25/18 09:00 12/12/18 08:04 75 MG Collagenase (Santyl) 1 judi DAILY 11/25/18 10:00 12/11/18 12:31 1 JUDI Cyanocobalamin (Vitamin B-12) 1,000 mcg DAILY 11/25/18 09:00 12/12/18 08:04 1,000 MCG Daptomycin 690 mg/ Sodium Chloride 50 ml @ 100 mls/hr MoWeFr@1600 11/25/18 16:00 12/09/18 16:50 100 MLS/HR Darbepoetin Reinaldo (Aranesp) 100 mcg WEEKLYHS 11/30/18 21:00 12/07/18 21:54 100 MCG Dexamethasone Sodium Phosphate (Decadron) 20 mg STK-MED ONCE 12/05/18 07:15 12/05/18 07:17 DC Dextrose (Dextrose 50%-Water Syringe) 12.5 gm PRN Q15MIN PRN 11/24/18 20:45 Fentanyl Citrate (Fentanyl 2ml Vial) 100 mcg STK-MED ONCE 12/05/18 07:15 12/05/18 07:17 DC Heparin Sodium (Porcine) (Hep Lock Adult) 500 unit 1X ONCE 12/09/18 13:30 12/09/18 13:31 DC 12/09/18 13:40 500 UNIT Heparin Sodium (Porcine) (Heparin Sodium) 5,000 unit Q12HR 11/25/18 21:00 11/28/18 09:44 DC 11/27/18 20:28 5,000 UNIT Hydromorphone HCl (Dilaudid) 0.5 mg PRN Q10MIN PRN 12/05/18 07:00 12/06/18 06:59 DC Info (PHARMACY MONITORING -- do not chart) 1 each PRN DAILY PRN 12/12/18 08:45 UNV Insulin Human Lispro (HumaLOG) 0-5 UNITS BG 300-39... TIDWMEALS 11/25/18 08:00 12/11/18 12:34 1 UNITS Lactobacillus Rhamnosus (Culturelle) 1 cap BID 11/24/18 21:00 12/12/18 08:03 1 CAP Lidocaine HCl 20 ml STK-MED ONCE 12/05/18 07:33 12/05/18 07:34 DC Lidocaine HCl (Lidocaine Pf 2% Vial) 5 ml STK-MED ONCE 12/05/18 07:15 12/05/18 07:17 DC Lidocaine HCl (Xylocaine-Mpf 1% 2ml Vial) 2 ml PRN 1X PRN 12/05/18 07:00 12/05/18 07:01 DC Lidocaine/ Epinephrine (LIDOCAINE 1%-EPI 1:100,000 Multi-Dose) 20 ml 1X ONCE 12/09/18 13:15 12/09/18 13:21 DC 12/09/18 13:37 10 ML Linezolid (Zyvox) 600 mg BID 11/25/18 11:00 11/28/18 10:04 DC 11/28/18 08:48 600 MG Magnesium Sulfate 50 ml @ 25 mls/hr 1X ONCE 11/30/18 10:00 11/30/18 11:59 DC 11/30/18 10:44 25 MLS/HR Meropenem 500 mg/ Sodium Chloride 50 ml @ 100 mls/hr DAILY16 11/25/18 16:00 12/11/18 17:09 100 MLS/HR Metoclopramide HCl (Reglan Oral Solution) 5 mg QIDACHS 12/07/18 11:30 12/12/18 08:03 5 MG Metoclopramide HCl (Reglan) 5 mg TIDACHC 12/01/18 16:30 12/07/18 11:01 DC 12/07/18 08:35 5 MG Morphine Sulfate (Morphine Sulfate) 4 mg STK-MED ONCE 12/05/18 09:35 12/05/18 09:37 DC Nystatin (Nystop) 1 judi BID 11/30/18 12:00 12/12/18 08:04 1 JUDI Ondansetron HCl (Zofran Odt) 4 mg TIDAC 12/01/18 16:30 12/12/18 08:04 4 MG Ondansetron HCl (Zofran) 4 mg STK-MED ONCE 12/05/18 07:15 12/05/18 07:17 DC Pantoprazole Sodium (Protonix) 40 mg DAILYAC 11/25/18 07:30 12/12/18 08:04 40 MG Phenylephrine HCl (PHENYLEPHRINE in 0.9% NACL PF) 1 mg STK-MED ONCE 12/05/18 07:56 12/05/18 07:58 DC Pregabalin (Lyrica) 25 mg HS 12/01/18 21:00 12/11/18 21:01 25 MG Propofol 20 ml @ As Directed STK-MED ONCE 12/05/18 07:15 12/05/18 07:17 DC Ringer's Solution 1,000 ml @ 30 mls/hr Q24H 12/05/18 07:00 12/05/18 18:59 DC Sevelamer Carbonate (Renvela) 800 mg TIDWMEALS 11/25/18 08:00 12/12/18 08:04 800 MG Sevoflurane (Ultane) 30 ml STK-MED ONCE 12/05/18 07:15 12/05/18 07:16 DC Sodium Chloride 1,000 ml @ 400 mls/hr Q2H30M PRN 12/12/18 09:00 12/12/18 18:00 Tramadol HCl (Ultram) 25 mg PRN Q6HRS PRN 11/30/18 11:00 12/01/18 12:12 DC 11/30/18 23:44 25 MG Vitamin B Complex/ Vitamin C (Krista-Beatriz) 1 tab DAILY 11/25/18 09:00 12/12/18 08:03 1 TAB Vitamin D (Vitamin D3) 1,000 unit DAILY 11/25/18 09:00 12/12/18 08:03 1,000 UNIT Lab Laboratory Tests Test 12/11/18 11:33 12/11/18 16:55 12/11/18 20:38 12/12/18 05:00 Glucose (Fingerstick) 173 mg/dL (70-99) 145 mg/dL (70-99) 164 mg/dL (70-99) White Blood Count 8.0 x10^3/uL (4.0-11.0) Red Blood Count 2.27 x10^6/uL (4.30-5.70) Hemoglobin 7.0 g/dL (13.0-17.5) Hematocrit 20.7 % (39.0-53.0) Mean Corpuscular Volume 91 fL (79-100) Mean Corpuscular Hemoglobin 31 pg (25-35) Mean Corpuscular Hemoglobin Concent 34 g/dL (31-37) Red Cell Distribution Width 18.4 % (11.5-14.5) Platelet Count 251 x10^3/uL (140-400) Neutrophils (%) (Auto) 67 % (31-73) Lymphocytes (%) (Auto) 17 % (24-48) Monocytes (%) (Auto) 6 % (0-9) Eosinophils (%) (Auto) 9 % (0-3) Basophils (%) (Auto) 1 % (0-3) Neutrophils # (Auto) 5.3 x10^3uL (1.8-7.7) Lymphocytes # (Auto) 1.4 x10^3/uL (1.0-4.8) Monocytes # (Auto) 0.5 x10^3/uL (0.0-1.1) Eosinophils # (Auto) 0.7 x10^3/uL (0.0-0.7) Basophils # (Auto) 0.1 x10^3/uL (0.0-0.2) Erythrocyte Sedimentation Rate 73 (0-15) Sodium Level 138 mmol/L (136-145) Potassium Level 5.3 mmol/L (3.5-5.1) Chloride Level 100 mmol/L (98-107) Carbon Dioxide Level 28 mmol/L (21-32) Anion Gap 10 (6-14) Blood Urea Nitrogen 68 mg/dL (8-26) Creatinine 8.8 mg/dL (0.7-1.3) Estimated GFR (Cockcroft-Gault) 7.1 BUN/Creatinine Ratio 8 (6-20) Glucose Level 166 mg/dL (70-99) Calcium Level 8.6 mg/dL (8.5-10.1) Total Bilirubin 0.3 mg/dL (0.2-1.0) Aspartate Amino Transf (AST/SGOT) 37 U/L (15-37) Alanine Aminotransferase (ALT/SGPT) 33 U/L (16-63) Alkaline Phosphatase 230 U/L (46-116) Creatine Kinase 35 U/L (39-308) Total Protein 6.5 g/dL (6.4-8.2) Albumin 2.2 g/dL (3.4-5.0) Albumin/Globulin Ratio 0.5 (1.0-1.7) Test 12/12/18 07:04 Glucose (Fingerstick) 130 mg/dL (70-99) Results All relevant outside records, renal labs, imaging studies, telemetry/EKG's were reviewed. WAYLON GONZALEZ MD Dec 12, 2018 10:16
--- NOTE | 2018-12-12 10:18 | PDOC ---
PROGRESS NOTES Subjective Subjective feels well. seen during dialysis. hgb 7.0 and will transfuse 2 units prbc during dialysis today. Objective Objective Vital Signs Date Time Temp Pulse Resp B/P (MAP) Pulse Ox O2 Delivery O2 Flow Rate FiO2 12/12/18 10:03 97.3 60 16 129/65 97.3 12/12/18 07:00 97 Nasal Cannula 2.0 Intake and Output 12/12/18 07:01 Intake Total 1240 ml Output Total 0 ml Balance 1240 ml Intake Oral 1240 ml Output Urine Total 0 ml Physical Exam Abdomen: Soft, Other (obese) Heart: Normal S1, Normal S2, Other (chronic atrial fibrillation) Extremities: No edema, Other (wound vac right foot) General: Alert HEENT: Atraumatic Lungs: Clear to auscultation Neuro: Normal speech Psych/Mental Status: Mental status NL Skin: No rashes Assessment Assessment chronic right foot wound with debridement of right first ray and 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 suspect due to zyvox. will avoid heparin products nausea and vomiting . resolved anemia of chronic disease Plan Plan of Care transfuse 2 units prbc during dialysis today weekly cbc cmp cpk and sed rate continue wound vac and wound care continue iv daptomycin and meropenem dismiss today to snf Comment Review of Relevant I have reviewed the following items simeon (where applicable) has been applied. Labs Laboratory Tests Test 12/10/18 11:20 12/10/18 17:01 12/10/18 20:28 12/11/18 07:06 Glucose (Fingerstick) 172 mg/dL (70-99) 153 mg/dL (70-99) 156 mg/dL (70-99) 107 mg/dL (70-99) Test 12/11/18 11:33 12/11/18 16:55 12/11/18 20:38 12/12/18 05:00 Glucose (Fingerstick) 173 mg/dL (70-99) 145 mg/dL (70-99) 164 mg/dL (70-99) White Blood Count 8.0 x10^3/uL (4.0-11.0) Red Blood Count 2.27 x10^6/uL (4.30-5.70) Hemoglobin 7.0 g/dL (13.0-17.5) Hematocrit 20.7 % (39.0-53.0) Mean Corpuscular Volume 91 fL (79-100) Mean Corpuscular Hemoglobin 31 pg (25-35) Mean Corpuscular Hemoglobin Concent 34 g/dL (31-37) Red Cell Distribution Width 18.4 % (11.5-14.5) Platelet Count 251 x10^3/uL (140-400) Neutrophils (%) (Auto) 67 % (31-73) Lymphocytes (%) (Auto) 17 % (24-48) Monocytes (%) (Auto) 6 % (0-9) Eosinophils (%) (Auto) 9 % (0-3) Basophils (%) (Auto) 1 % (0-3) Neutrophils # (Auto) 5.3 x10^3uL (1.8-7.7) Lymphocytes # (Auto) 1.4 x10^3/uL (1.0-4.8) Monocytes # (Auto) 0.5 x10^3/uL (0.0-1.1) Eosinophils # (Auto) 0.7 x10^3/uL (0.0-0.7) Basophils # (Auto) 0.1 x10^3/uL (0.0-0.2) Erythrocyte Sedimentation Rate 73 (0-15) Sodium Level 138 mmol/L (136-145) Potassium Level 5.3 mmol/L (3.5-5.1) Chloride Level 100 mmol/L (98-107) Carbon Dioxide Level 28 mmol/L (21-32) Anion Gap 10 (6-14) Blood Urea Nitrogen 68 mg/dL (8-26) Creatinine 8.8 mg/dL (0.7-1.3) Estimated GFR (Cockcroft-Gault) 7.1 BUN/Creatinine Ratio 8 (6-20) Glucose Level 166 mg/dL (70-99) Calcium Level 8.6 mg/dL (8.5-10.1) Total Bilirubin 0.3 mg/dL (0.2-1.0) Aspartate Amino Transf (AST/SGOT) 37 U/L (15-37) Alanine Aminotransferase (ALT/SGPT) 33 U/L (16-63) Alkaline Phosphatase 230 U/L (46-116) Creatine Kinase 35 U/L (39-308) Total Protein 6.5 g/dL (6.4-8.2) Albumin 2.2 g/dL (3.4-5.0) Albumin/Globulin Ratio 0.5 (1.0-1.7) Test 12/12/18 07:04 Glucose (Fingerstick) 130 mg/dL (70-99) Laboratory Tests Test 12/11/18 11:33 12/11/18 16:55 12/11/18 20:38 12/12/18 05:00 Glucose (Fingerstick) 173 mg/dL (70-99) 145 mg/dL (70-99) 164 mg/dL (70-99) White Blood Count 8.0 x10^3/uL (4.0-11.0) Red Blood Count 2.27 x10^6/uL (4.30-5.70) Hemoglobin 7.0 g/dL (13.0-17.5) Hematocrit 20.7 % (39.0-53.0) Mean Corpuscular Volume 91 fL (79-100) Mean Corpuscular Hemoglobin 31 pg (25-35) Mean Corpuscular Hemoglobin Concent 34 g/dL (31-37) Red Cell Distribution Width 18.4 % (11.5-14.5) Platelet Count 251 x10^3/uL (140-400) Neutrophils (%) (Auto) 67 % (31-73) Lymphocytes (%) (Auto) 17 % (24-48) Monocytes (%) (Auto) 6 % (0-9) Eosinophils (%) (Auto) 9 % (0-3) Basophils (%) (Auto) 1 % (0-3) Neutrophils # (Auto) 5.3 x10^3uL (1.8-7.7) Lymphocytes # (Auto) 1.4 x10^3/uL (1.0-4.8) Monocytes # (Auto) 0.5 x10^3/uL (0.0-1.1) Eosinophils # (Auto) 0.7 x10^3/uL (0.0-0.7) Basophils # (Auto) 0.1 x10^3/uL (0.0-0.2) Erythrocyte Sedimentation Rate 73 (0-15) Sodium Level 138 mmol/L (136-145) Potassium Level 5.3 mmol/L (3.5-5.1) Chloride Level 100 mmol/L (98-107) Carbon Dioxide Level 28 mmol/L (21-32) Anion Gap 10 (6-14) Blood Urea Nitrogen 68 mg/dL (8-26) Creatinine 8.8 mg/dL (0.7-1.3) Estimated GFR (Cockcroft-Gault) 7.1 BUN/Creatinine Ratio 8 (6-20) Glucose Level 166 mg/dL (70-99) Calcium Level 8.6 mg/dL (8.5-10.1) Total Bilirubin 0.3 mg/dL (0.2-1.0) Aspartate Amino Transf (AST/SGOT) 37 U/L (15-37) Alanine Aminotransferase (ALT/SGPT) 33 U/L (16-63) Alkaline Phosphatase 230 U/L (46-116) Creatine Kinase 35 U/L (39-308) Total Protein 6.5 g/dL (6.4-8.2) Albumin 2.2 g/dL (3.4-5.0) Albumin/Globulin Ratio 0.5 (1.0-1.7) Test 12/12/18 07:04 Glucose (Fingerstick) 130 mg/dL (70-99) Medications Current Medications Acetaminophen (Tylenol) 325 mg PRN Q4HRS PRN PO MILD PAIN / TEMP Last administered on 12/12/18 04:55; Start 11/24/18 at 20:30 Allopurinol (Zyloprim) 100 mg DAILY PO Last administered on 12/12/18 08:03; Start 11/25/18 at 09:00 Aspirin (Children'S Aspirin) 81 mg DAILY PO Last administered on 12/12/18 08: 04; Start 11/25/18 at 09:00 Atorvastatin Calcium (Lipitor) 40 mg HS PO Last administered on 12/11/18 21:01 ; Start 11/24/18 at 21:00 Carvedilol (Coreg) 3.125 mg BIDWMEALS PO Last administered on 11/29/18 18:49; Start 11/24/18 at 21:00; Stop 11/30/18 at 10:19; Status DC Vitamin D (Vitamin D3) 1,000 unit DAILY PO Last administered on 12/12/18 08:03 ; Start 11/25/18 at 09:00 Clopidogrel Bisulfate (Plavix) 75 mg DAILY PO Last administered on 12/12/18 08 :04; Start 11/25/18 at 09:00 Cyanocobalamin (Vitamin B-12) 1,000 mcg DAILY PO Last administered on 08:04; Start 11/25/18 at 09:00 Acetaminophen/ Hydrocodone Bitart (Lortab 5/325) 1 tab PRN Q4HRS PRN PO MODERATE - SEVERE PAIN Last administered on 11/29/18 20:52; Start 11/24/18 at 20:30; Stop 11/30/18 at 11:04; Status DC Pregabalin (Lyrica) 50 mg HS PO Last administered on 11/30/18 20:18; Start at 21:00; Stop 12/01/18 at 12:12; Status DC Sevelamer Carbonate (Renvela) 800 mg TIDWMEALS PO Last administered on 08:04; Start 11/25/18 at 08:00 Vitamin B Complex/ Vitamin C (Krista-Beatriz) 1 tab DAILY PO Last administered on 08:03; Start 11/25/18 at 09:00 Lactobacillus Rhamnosus (Culturelle) 1 cap BID PO Last administered on 08:03; Start 11/24/18 at 21:00 Pantoprazole Sodium (Protonix) 40 mg DAILYAC PO Last administered on 12/12/18 08:04; Start 11/25/18 at 07:30 Insulin Human Lispro (HumaLOG) 0-5 UNITS TIDWMEALS SQ ; Start 11/24/18 at 21:00 ; Stop 11/24/18 at 21:57; Status DC Dextrose (Dextrose 50%-Water Syringe) 12.5 gm PRN Q15MIN PRN IV SEE COMMENTS; Start 11/24/18 at 20:45 Insulin Human Lispro (HumaLOG) 0-5 UNITS TIDWMEALS SQ ; Start 11/25/18 at 08:00 ; Stop 11/25/18 at 08:00; Status DC Insulin Human Lispro (HumaLOG) 0-5 UNITS BG 300-39... TIDWMEALS SQ Last administered on 12/11/18at 12:34; Start 11/25/18 at 08:00 Collagenase (Santyl) 1 judi DAILY TP Last administered on 12/11/18at 12:31; Start 11/25/18 at 10:00 Meropenem 500 mg/ Sodium Chloride 50 ml @ 100 mls/hr Q12HR IV ; Start at 21:00; Status UNV Daptomycin 690 mg/ Sodium Chloride 50 ml @ 100 mls/hr [id number]@1600 IV Last administered on 12/09/18at 16:50; Start 11/25/18 at 16:00 Heparin Sodium (Porcine) (Heparin Sodium) 5,000 unit Q12HR SQ Last administered on 11/27/18at 20:28; Start 11/25/18 at 21:00; Stop 11/28/18 at 09 :44; Status DC Meropenem 500 mg/ Sodium Chloride 50 ml @ 100 mls/hr DAILY16 IV Last administered on 12/11/18at 17:09; Start 11/25/18 at 16:00 Linezolid (Zyvox) 600 mg BID PO Last administered on 11/28/18at 08:48; Start 11/25/18 at 11:00; Stop 11/28/18 at 10:04; Status DC Info (PHARMACY MONITORING -- do not chart) 1 each PRN DAILY PRN MC SEE COMMENTS ; Start 11/25/18 at 10:45; Stop 11/28/18 at 17:07; Status DC Sodium Chloride 1,000 ml @ 1,000 mls/hr Q1H PRN IV hypotension; Start at 14:30; Stop 11/25/18 at 20:30; Status DC Sodium Chloride 1,000 ml @ 400 mls/hr Q2H30M PRN IV PATENCY; Start 11/25/18 at 14:30; Stop 11/25/18 at 20:30; Status DC Info (PHARMACY MONITORING -- do not chart) 1 each PRN DAILY PRN MC SEE COMMENTS ; Start 11/25/18 at 14:45; Status UNV Info (PHARMACY MONITORING -- do not chart) 1 each PRN DAILY PRN MC SEE COMMENTS ; Start 11/25/18 at 14:45; Status UNV Ondansetron HCl (Zofran Odt) 4 mg PRN Q6HRS PRN PO NAUSEA/VOMITING Last administered on 12/01/18at 07:30; Start 11/27/18 at 02:15 Magnesium Sulfate 50 ml @ 25 mls/hr PRN DAILY PRN IV for Mag < 1.7 on am labs; Start 11/27/18 at 14:00 Sodium Chloride 1,000 ml @ 1,000 mls/hr Q1H PRN IV hypotension; Start at 09:05; Stop 11/28/18 at 15:04; Status DC Albumin Human 200 ml @ 200 mls/hr 1X PRN PRN IV Hypotension; Start 11/28/18 at 09:15; Stop 11/28/18 at 15:14; Status DC Sodium Chloride 1,000 ml @ 400 mls/hr Q2H30M PRN IV PATENCY; Start 11/28/18 at 09:05; Stop 11/28/18 at 21:04; Status DC Info (PHARMACY MONITORING -- do not chart) 1 each PRN DAILY PRN MC SEE COMMENTS ; Start 11/28/18 at 09:15; Stop 11/28/18 at 17:07; Status DC Info (PHARMACY MONITORING -- do not chart) 1 each PRN DAILY PRN MC SEE COMMENTS ; Start 11/28/18 at 09:15; Stop 12/02/18 at 15:15; Status DC Sodium Chloride 1,000 ml @ 1,000 mls/hr Q1H PRN IV hypotension; Start 11/29/18 at 16:30; Stop 11/29/18 at 23:00; Status DC Info (PHARMACY MONITORING -- do not chart) 1 each PRN DAILY PRN MC SEE COMMENTS ; Start 11/29/18 at 16:45; Status UNV Info (PHARMACY MONITORING -- do not chart) 1 each PRN DAILY PRN MC SEE COMMENTS ; Start 11/29/18 at 16:45; Status UNV Info (PHARMACY MONITORING -- do not chart) 1 each PRN DAILY PRN MC SEE COMMENTS ; Start 11/30/18 at 08:30 Magnesium Sulfate 50 ml @ 25 mls/hr 1X ONCE IV Last administered on 11/30/18at 10:44; Start 11/30/18 at 10:00; Stop 11/30/18 at 11:59; Status DC Darbepoetin Reinaldo (Aranesp) 100 mcg WEEKLYHS SQ Last administered on 12/07/18 21 :54; Start 11/30/18 at 21:00 Tramadol HCl (Ultram) 25 mg PRN Q6HRS PRN PO MODERATE PAIN Last administered on 11/30/18at 23:44; Start 11/30/18 at 11:00; Stop 12/01/18 at 12:12; Status DC Nystatin (Nystop) 1 judi BID TP Last administered on 12/12/18at 08:04; Start 11/30 at 12:00 Sodium Chloride 1,000 ml @ 1,000 mls/hr Q1H PRN IV hypotension; Start 11/30/18 at 10:00; Stop 11/30/18 at 16:30; Status DC Albumin Human 200 ml @ 200 mls/hr 1X PRN PRN IV Hypotension; Start 11/30/18 at 10:00; Stop 11/30/18 at 16:30; Status DC Albumin Human 200 ml @ 100 mls/hr 1X ONCE IV Last administered on 11/30/18at 16 :45; Start 11/30/18 at 16:45; Stop 11/30/18 at 18:44; Status DC Albumin Human 500 ml @ 125 mls/hr Q4H IV Last administered on 12/01/18at 17:22; Start 12/01/18 at 12:00; Stop 12/01/18 at 19:59; Status DC Pregabalin (Lyrica) 25 mg HS PO Last administered on 12/11/18at 21:01; Start 12/01/18 at 21:00 Ondansetron HCl (Zofran Odt) 4 mg TIDAC PO Last administered on 12/12/18 08:04 ; Start 12/01/18 at 16:30 Metoclopramide HCl (Reglan) 5 mg TIDACHC PO Last administered on 12/07/18 08:35 ; Start 12/01/18 at 16:30; Stop 12/07/18 at 11:01; Status DC Acetaminophen/ Hydrocodone Bitart (Lortab 5/325) 0.5 tab PRN Q4HRS PRN PO MODERATE PAIN Last administered on 12/12/18 04:55; Start 12/01/18 at 12:30 Sodium Chloride 1,000 ml @ 1,000 mls/hr Q1H PRN IV hypotension; Start 12/02/18 at 08:27; Stop 12/02/18 at 14:26; Status DC Albumin Human 200 ml @ 200 mls/hr 1X PRN PRN IV Hypotension; Start 12/02/18 at 08:30; Stop 12/02/18 at 14:29; Status DC Sodium Chloride 1,000 ml @ 400 mls/hr Q2H30M PRN IV PATENCY; Start 12/02/18 at 08:27; Stop 12/02/18 at 20:26; Status DC Info (PHARMACY MONITORING -- do not chart) 1 each PRN DAILY PRN MC SEE COMMENTS ; Start 12/02/18 at 08:30; Status UNV Info (PHARMACY MONITORING -- do not chart) 1 each PRN DAILY PRN MC SEE COMMENTS ; Start 12/02/18 at 08:30; Status UNV Ondansetron HCl (Zofran) 4 mg PRN Q6HRS PRN IV NAUSEA/VOMITING; Start 12/05/18 at 07:00; Stop 12/06/18 at 06:59; Status DC Morphine Sulfate (Morphine Sulfate) 1 mg PRN Q10MIN PRN IV SEVERE PAIN Last administered on 12/05/18at 09:39; Start 12/05/18 at 07:00; Stop 12/05/18 at 18:00; Status DC Ringer's Solution 1,000 ml @ 30 mls/hr Q24H IV ; Start 12/05/18 at 07:00; Stop 12/05/18 at 18:59; Status DC Lidocaine HCl (Xylocaine-Mpf 1% 2ml Vial) 2 ml PRN 1X PRN ID PRIOR TO IV START ; Start 12/05/18 at 07:00; Stop 12/05/18 at 07:01; Status DC Hydromorphone HCl (Dilaudid) 0.5 mg PRN Q10MIN PRN IV SEV PAIN, Second choice; Start 12/05/18 at 07:00; Stop 12/06/18 at 06:59; Status DC Carvedilol (Coreg) 3.125 mg BIDWMEALS PO Last administered on 12/12/18at 08:05; Start 12/03/18 at 08:00 Sodium Chloride 500 ml @ 30 mls/hr [id number] IV Last administered on 12/05/18at 11 :05; Start 12/05/18 at 06:30; Stop 12/06/18 at 06:29; Status DC Cefazolin Sodium 1 gm/Sodium Chloride 500 ml @ 500 mls/hr 1X ONCE IRR Last administered on 12/05/18at 07:45; Start 12/05/18 at 08:00; Stop 12/05/18 at 08:59; Status DC Sevoflurane (Ultane) 30 ml STK-MED ONCE IH ; Start 12/05/18 at 07:15; Stop at 07:16; Status DC Fentanyl Citrate (Fentanyl 2ml Vial) 100 mcg STK-MED ONCE .ROUTE ; Start at 07:15; Stop 12/05/18 at 07:17; Status DC Propofol 20 ml @ As Directed STK-MED ONCE IV ; Start 12/05/18 at 07:15; Stop 12/05 at 07:17; Status DC Lidocaine HCl (Lidocaine Pf 2% Vial) 5 ml STK-MED ONCE .ROUTE ; Start 12/05/18 at 07:15; Stop 12/05/18 at 07:17; Status DC Dexamethasone Sodium Phosphate (Decadron) 20 mg STK-MED ONCE .ROUTE ; Start 12/05 at 07:15; Stop 12/05/18 at 07:17; Status DC Ondansetron HCl (Zofran) 4 mg STK-MED ONCE .ROUTE ; Start 12/05/18 at 07:15; Stop 12/05/18 at 07:17; Status DC Lidocaine HCl 20 ml STK-MED ONCE .ROUTE ; Start 12/05/18 at 07:33; Stop 12/05/18 at 07:34; Status DC Cellulose (Surgicel Fibrillar 1x2) 1 each STK-MED ONCE .ROUTE ; Start 12/05/18 at 07:33; Stop 12/05/18 at 07:34; Status DC Phenylephrine HCl (PHENYLEPHRINE in 0.9% NACL PF) 1 mg STK-MED ONCE IV ; Start 12/05/18 at 07:56; Stop 12/05/18 at 07:58; Status DC Sodium Chloride 1,000 ml @ 1,000 mls/hr Q1H PRN IV hypotension; Start 1/7/19 at 08:31; Stop 12/05/18 at 14:30; Status DC Albumin Human 200 ml @ 200 mls/hr 1X PRN PRN IV Hypotension; Start 12/05/18 at 08:45; Stop 12/05/18 at 14:44; Status DC Sodium Chloride 1,000 ml @ 400 mls/hr Q2H30M PRN IV PATENCY Last administered on 12/05/18at 11:04; Start 12/05/18 at 08:31; Stop 12/05/18 at 20:30; Status DC Info (PHARMACY MONITORING -- do not chart) 1 each PRN DAILY PRN MC SEE COMMENTS ; Start 12/05/18 at 08:45; Status UNV Info (PHARMACY MONITORING -- do not chart) 1 each PRN DAILY PRN MC SEE COMMENTS ; Start 12/05/18 at 08:45; Status Cancel Morphine Sulfate (Morphine Sulfate) 4 mg STK-MED ONCE .ROUTE ; Start 12/05/18 at 09:35; Stop 12/05/18 at 09:37; Status DC Metoclopramide HCl (Reglan Oral Solution) 5 mg QIDACHS PO Last administered on 12/12/18at 08:03; Start 12/07/18 at 11:30 Sodium Chloride 1,000 ml @ 1,000 mls/hr Q1H PRN IV hypotension; Start 12/07/18 at 16:46; Stop 12/07/18 at 22:45; Status DC Sodium Chloride 1,000 ml @ 400 mls/hr Q2H30M PRN IV PATENCY; Start 12/07/18 at 16:46; Stop 12/08/18 at 04:45; Status DC Info (PHARMACY MONITORING -- do not chart) 1 each PRN DAILY PRN MC SEE COMMENTS ; Start 12/07/18 at 17:00; Status Cancel Sodium Chloride 1,000 ml @ 1,000 mls/hr Q1H PRN IV hypotension; Start 12/09/18 at 07:50; Stop 12/09/18 at 13:49; Status DC Sodium Chloride 1,000 ml @ 400 mls/hr Q2H30M PRN IV PATENCY; Start 12/09/18 at 07:50; Stop 12/09/18 at 19:49; Status DC Info (PHARMACY MONITORING -- do not chart) 1 each PRN DAILY PRN MC SEE COMMENTS ; Start 12/09/18 at 08:00; Status UNV Info (PHARMACY MONITORING -- do not chart) 1 each PRN DAILY PRN MC SEE COMMENTS ; Start 12/09/18 at 08:00; Status UNV Lidocaine/ Epinephrine (LIDOCAINE 1%-EPI 1:100,000 Multi-Dose) 20 ml STK-MED ONCE .ROUTE ; Start 12/09/18 at 12:59; Stop 12/09/18 at 13:01; Status DC Lidocaine/ Epinephrine (LIDOCAINE 1%-EPI 1:100,000 Multi-Dose) 20 ml 1X ONCE IJ Last administered on 12/09/18at 13:37; Start 12/09/18 at 13:15; Stop at 13:21; Status DC Heparin Sodium (Porcine) (Hep Lock Adult) 500 unit STK-MED ONCE IV ; Start 12/09 at 13:17; Stop 12/09/18 at 13:19; Status DC Heparin Sodium (Porcine) (Hep Lock Adult) 500 unit 1X ONCE IV Last administered on 12/09/18at 13:40; Start 12/09/18 at 13:30; Stop 12/09/18 at 13:31 ; Status DC Sodium Chloride 1,000 ml @ 1,000 mls/hr Q1H PRN IV hypotension; Start 12/12/18 at 09:00; Stop 12/12/18 at 18:00 Sodium Chloride 1,000 ml @ 400 mls/hr Q2H30M PRN IV PATENCY; Start 12/12/18 at 09:00; Stop 12/12/18 at 18:00 Info (PHARMACY MONITORING -- do not chart) 1 each PRN DAILY PRN MC SEE COMMENTS ; Start 12/12/18 at 08:45; Status UNV Info (PHARMACY MONITORING -- do not chart) 1 each PRN DAILY PRN MC SEE COMMENTS ; Start 12/12/18 at 08:45; Status UNV Active Scripts Active Zofran (Ondansetron Hcl) 4 Mg Tablet 1 Tab PO Q6HRS Aspirin Ec (Aspirin) 81 Mg Tablet.dr 81 Mg PO [id number] 30 Days [Pantoprazole] 40 MG Tablet.dr 40 Mg PO DAILYAC 30 Days Humalog (Insulin Lispro) 100 Unit/1 Ml Insuln.pen 0 Units SQ TIDWMEALS 30 Days BG 150-199= 1 units 200-299= 2 units 300-399= 4 units 400-499= 6 units ac tid sliding scale Culturelle (Lactobacillus Rhamnosus Gg) 1 Each Cap.sprink 1 Cap PO BID 30 Days Tylenol (Acetaminophen) 325 Mg Tablet 325 Mg PO PRN Q4HRS PRN 30 Days Carvedilol (Carvedilol) 3.125 Mg Tablet 3.125 Mg PO BIDWMEALS 30 Days Renvela (Sevelamer Carbonate) 800 Mg Tablet 800 Mg PO TIDWMEALS 30 Days Pantoprazole Sodium 40 Mg Tablet.dr 40 Mg PO DAILYAC 30 Days Krista-Beatriz Tablet (Folic Acid/Vitamin B Comp W-C) 0.8 Mg Tablet 1 Tab PO DAILY 30 Days Reported Vitamin B-12 (Cyanocobalamin (Vitamin B-12)) 1,000 Mcg Tablet 1 Tab PO DAILY Allopurinol 100 Mg Tablet 1 Tab PO DAILY Renal Caps Softgel (Folic Acid/Vitamin B Comp W-C) 1 Mg Capsule 1 Cap PO DAILY Acidophilus Lactobacilli (Lactobacillus Acidophilus) 1 Each Capsule 1 Each PO BID Protonix (Pantoprazole Sodium) 20 Mg Tablet.dr 40 Mg PO DAILY Renvela (Sevelamer Carbonate) 800 Mg Tablet 800 Mg PO TIDWMEALS Lyrica (Pregabalin) 50 Mg Capsule 50 Mg PO HS Tylenol (Acetaminophen) 325 Mg Tablet 1 Tab PO PRN Q4HRS Aspirin 81 Mg Tab.chew 81 Mg PO DAILY Carvedilol (Carvedilol) 3.125 Mg Tablet 3.125 Mg PO BIDWMEALS Lipitor (Atorvastatin Calcium) 40 Mg Tablet 40 Mg PO HS Clopidogrel (Clopidogrel Bisulfate) 75 Mg Tablet 75 Mg PO DAILY Vitamin D (Cholecalciferol (Vitamin D3)) 2,000 Unit Capsule 1 Cap PO DAILY Lyrica (Pregabalin) 50 Mg Capsule 25 Mg PO HS Clopidogrel (Clopidogrel Bisulfate) 75 Mg Tablet 1 Tab PO DAILY Atorvastatin Calcium 40 Mg Tablet 40 Mg PO HS Allopurinol 100 Mg Tablet 1 Tab PO DAILY Vitamin B-12 (Cyanocobalamin (Vitamin B-12)) 1,000 Mcg Tablet 1 Tab PO DAILY Vitamin D-3 (Cholecalciferol (Vitamin D3)) 2,000 Unit Capsule 1,000 Unit PO DAILY Vitals/I & O Vital Sign - Last 24 Hours 12/11/18 12/11/18 12/11/18 12/11/18 10:54 14:49 17:10 19:05 Temp 98.5 98.2 98.2 98.5 98.2 98.2 Pulse 60 56 56 67 Resp 18 18 18 B/P (MAP) 119/61 (80) 123/69 (87) 123/69 138/71 (93) Pulse Ox 99 99 97 O2 Delivery Room Air Room Air Room Air 12/11/18 12/11/18 12/11/18 12/12/18 19:18 19:30 23:40 03:20 Temp 98.3 98.1 98.3 98.1 Pulse 59 60 Resp 20 15 18 B/P (MAP) 141/70 (93) 132/76 (94) Pulse Ox 96 100 O2 Delivery Room Air Nasal Cannula Nasal Cannula O2 Flow Rate 2.0 2.0 12/12/18 12/12/18 12/12/18 12/12/18 04:55 05:58 07:00 08:05 Temp 97.5 97.5 Pulse 60 60 Resp 18 20 18 B/P (MAP) 138/63 (88) 138/63 Pulse Ox 97 O2 Delivery Nasal Cannula Room Air Nasal Cannula O2 Flow Rate 2.0 2.0 2.0 12/12/18 12/12/18 09:43 10:03 Temp 97.7 97.3 97.7 97.3 Pulse 60 60 Resp 16 16 B/P (MAP) 114/67 129/65 Intake and Output 12/11/18 12/11/18 12/12/18 15:01 23:01 07:01 Intake Total 540 ml 500 ml 200 ml Output Total 0 ml Balance 540 ml 500 ml 200 ml KIMI TIDWELL MD Dec 12, 2018 10:18
--- NOTE | 2018-12-12 14:40 | NUR ---
Wound Care Pt seen for wound care follow up and wound vac change prior to d/c to [facility] today. Wound dressings removed, L second toe is healed and left LOGAN, all wounds cleaned, measured and photographed. R lateral ankle/lower leg ulcer has filled in well, beefy red granulation tissue present, dressed with collagen, Xeroform gauze and foam dressing. R medial foot open amp site is still with beefy red granulation tissue, but the proximal portion of wound bed is turning a little dusky and pale, with some slough present. 1 piece of silver foam packed into tunnels and wound bed, foam tracked up R medial lower leg. Vac showing strong seal at -125 mmHg continuous suction, pt tolerated well. No other wounds noted on full skin inspection, calazime cream applied to pink buttocks areas, skin intact and blanchable.
--- NOTE | 2018-12-12 15:28 | NUR ---
Patient discharge to [facility]. patient was stable upon discharge. Patient central line was left in due to patient will be receiving IV medication Daptomycin and merepenom. Report was given to nurse at [facility]. Wound care dressed wound and sent patient with wound vac. [facility].
--- NOTE | 2018-12-12 15:30 | NUR ---
Patient took all belongings with them on discharge.
[2018-12-30] MEDS ORDERED: METO10TA81 PO (18:00)
[2018-12-30] MEDS ORDERED: DAPT350V IV (18:01)
[2018-12-30] MEDS ORDERED: MERO500V15 IV (18:03)
[2019-01-03] MEDS ORDERED: CARV25TA2 PO (06:25)
[2019-01-05] MEDS ORDERED: TRAM50TA PO (10:56)
[2019-01-05] MEDS ORDERED: ACET325T9 PO (10:56)
[2019-01-05] MEDS ORDERED: ONDA4TAB12 PO (10:56)
[2019-01-05] MEDS ORDERED: METO5TAB PO (10:56)
[2019-04-11] MEDS ORDERED: TRAM50TA PO (09:41)
[2019-04-11] MEDS ORDERED: BISA10SU4 RC (09:41)
[2019-04-11] MEDS ORDERED: SENN-80 PO (09:41)
[2019-04-11] MEDS ORDERED: PANT20TA2 PO (09:41)
[2019-04-24] MEDS ORDERED: CYAN-25 PO (13:22)
[2019-05-31] MEDS ORDERED: OMEP20TA8 PO (11:18)
[2019-06-22] MEDS ORDERED: HYDR-3164 PO (10:55)
[2019-06-22] MEDS ORDERED: AMOX1TAB10 PO (10:55)
[2019-06-22] MEDS ORDERED: LINE600T PO (10:55)
== END 2018-12-12 15:15 | disposition home or self-care (01) | DRG 255 ==
LOC: MERGE 16:56 → 5 SOUTH 16:56 → 2 SOUTH 11-30 11:52
PROVIDERS: ADMIT Internal Medicine; ATTEND Internal Medicine
PROC: 0Y6R0Z2 Detachment at Right 2nd Toe, Mid, Open Approach (ICD-10-PCS; principal; 2018-11-24)
PROC: 0QBN0ZZ Excision of Right Metatarsal, Open Approach (ICD-10-PCS; 2018-11-24)
PROC: 30233N1 Transfusion of Nonautologous Red Blood Cells into Peripheral Vein, Percutaneous Approach (ICD-10-PCS; 2018-11-25)
PROC: 02HV33Z Insertion of Infusion Device into Superior Vena Cava, Percutaneous Approach (ICD-10-PCS; 2018-11-25)
PROC: 5A1D70Z Performance of Urinary Filtration, Intermittent, Less than 6 Hours Per Day (ICD-10-PCS; 2018-11-25)
PROC: 5A1D70Z Performance of Urinary Filtration, Intermittent, Less than 6 Hours Per Day (ICD-10-PCS; 2018-11-25)
PROC: B5181ZA Fluoroscopy of Superior Vena Cava using Low Osmolar Contrast, Guidance (ICD-10-PCS; 2018-11-28)
PROC: 5A1D70Z Performance of Urinary Filtration, Intermittent, Less than 6 Hours Per Day (ICD-10-PCS; 2018-11-28)
PROC: 5A1D70Z Performance of Urinary Filtration, Intermittent, Less than 6 Hours Per Day (ICD-10-PCS; 2018-11-30)
PROC: 5A1D70Z Performance of Urinary Filtration, Intermittent, Less than 6 Hours Per Day (ICD-10-PCS; 2018-12-02)
PROC: 5A1D70Z Performance of Urinary Filtration, Intermittent, Less than 6 Hours Per Day (ICD-10-PCS; 2018-12-05)
PROC: 5A1D70Z Performance of Urinary Filtration, Intermittent, Less than 6 Hours Per Day (ICD-10-PCS; 2018-12-07)
PROC: 0JH63XZ Insertion of Tunneled Vascular Access Device into Chest Subcutaneous Tissue and Fascia, Percutaneous Approach (ICD-10-PCS; 2018-12-09)
PROC: B548ZZA Ultrasonography of Superior Vena Cava, Guidance (ICD-10-PCS; 2018-12-09)
PROC: 5A1D70Z Performance of Urinary Filtration, Intermittent, Less than 6 Hours Per Day (ICD-10-PCS; 2018-12-09)
PROC: 5A1D70Z Performance of Urinary Filtration, Intermittent, Less than 6 Hours Per Day (ICD-10-PCS; 2018-12-12)
DX: E11.52 Type 2 diabetes mellitus with diabetic peripheral angiopathy with gangrene (principal); N18.6 End stage renal disease; G81.94 Hemiplegia, unspecified affecting left nondominant side; I13.2 Hypertensive heart and chronic kidney disease with heart failure and with stage 5 chronic kidney disease, or end stage renal disease; I50.32 Chronic diastolic (congestive) heart failure; M86.8X6 Other osteomyelitis, lower leg; Z68.41 Body mass index [BMI] 40.0-44.9, adult; E11.69 Type 2 diabetes mellitus with other specified complication; D12.3 Benign neoplasm of transverse colon; D63.1 Anemia in chronic kidney disease; D69.6 Thrombocytopenia, unspecified; E11.22 Type 2 diabetes mellitus with diabetic chronic kidney disease; E11.42 Type 2 diabetes mellitus with diabetic polyneuropathy; E11.622 Type 2 diabetes mellitus with other skin ulcer; E66.01 Morbid (severe) obesity due to excess calories; E78.5 Hyperlipidemia, unspecified; E83.42 Hypomagnesemia; G47.33 Obstructive sleep apnea (adult) (pediatric); I25.10 Atherosclerotic heart disease of native coronary artery without angina pectoris; I48.2 Chronic atrial fibrillation; K21.9 Gastro-esophageal reflux disease without esophagitis; L98.499 Non-pressure chronic ulcer of skin of other sites with unspecified severity; S30.1XXA Contusion of abdominal wall, initial encounter; D69.59 Other secondary thrombocytopenia; S98.111A Complete traumatic amputation of right great toe, initial encounter; K57.30 Diverticulosis of large intestine without perforation or abscess without bleeding; M19.90 Unspecified osteoarthritis, unspecified site; K80.20 Calculus of gallbladder without cholecystitis without obstruction; Z16.11 Resistance to penicillins; Z79.01 Long term (current) use of anticoagulants; Z79.02 Long term (current) use of antithrombotics/antiplatelets; Z79.82 Long term (current) use of aspirin; Z79.899 Other long term (current) drug therapy; Z82.49 Family history of ischemic heart disease and other diseases of the circulatory system; Z86.010 Personal history of colon polyps; Z86.73 Personal history of transient ischemic attack (TIA), and cerebral infarction without residual deficits; Z89.419 Acquired absence of unspecified great toe; Z91.81 History of falling; Z95.5 Presence of coronary angioplasty implant and graft; Z95.820 Peripheral vascular angioplasty status with implants and grafts; Z99.2 Dependence on renal dialysis; Z79.4 Long term (current) use of insulin
CPT/HCPCS: 36415; 36558; 36600; 71045; 76937; 77001; 80048; 80053; 80069; 82550; 82728; 82805; 82962; 83540; 83550; 83735; 84439; 84443; 85007; 85025; 85384; 85610; 85651; 85730; 86850; 86900; 86901; 86920; 87493; 87641; 88305; 88311; 93005; 93931; 97164; C1751; C1892; J0690; J0775; J0878; J0881; J1100; J1644; J1815; J2001; J2185; J2270; J2370; J2405; J2704; J3010; J3475; J3490; J7030; J7040; J8597; P9016; P9045; P9046; Q0162; 97110; 97116; 97530; 97535; A4461; G0378

== ENCOUNTER → 2019-03-06 | Outpatient (CLI) | payer BC, OTHER ==
[2019-01-05 11:00] VITALS: BP 109/58
[~2019-03-06] MED LIST changes: +AMMO225L8 TP; +AMMO226L TP; +ASPI-630 PO; +ASPI81TA50 PO; +ATOR40TA PO; +BISA10SU2 RC; +BISA10SU55 RC; +CEPH250C PO; +CHOL10003 PO; +CLIN150C14 PO; -CYAN-25 PO; +CYAN10005 PO; +DAPT350V IV; +DIPH-121 PO; +FOLI1CAP10 PO; +GUAI-108 PO; +INSU100V SQ; +IPRA3AMP29 NEB; +LACT1CAP48 PO; +LACT1CAP6 PO; +LINE600T PO; +MAGN400O7 PO; +MERO500V15 IV; +METO10TA81 PO; +METO5TAB PO; +ONDA4TAB12 PO; +ONDA4TAB7 PO; +PANT20TA2 PO; +PANT40TA5 PO; -PANT40TA77 PO; +SENN-80 PO; +SENN1TAB99 PO; +TRAM50TA PO
[2019-03-06 05:24] LABS: BASO # 0.1 x10^3/uL (0.0-0.2); BASO % 1 % (0-3); EOS # 0.8 x10^3/uL (0.0-0.7); EOS % 6 % (0-3); LYMPH # 1.6 x10^3/uL (1.0-4.8); LYMPH % 12 % (24-48); MEAN CORPUSCULAR HEMOGLOBIN 28 pg (25-35); MEAN CORPUSCULAR HGB CONC 31 g/dL (31-37); MEAN CORPUSCULAR VOLUME 90 fL (79-100); MONO # 0.8 x10^3/uL (0.0-1.1); MONO % 6 % (0-9); NEUT # 10.4 x10^3uL (1.8-7.7); NEUT % 76 % (31-73); PLATELET COUNT 251 x10^3/uL (140-400); RED BLOOD COUNT 3.57 x10^6/uL (4.30-5.70); WHITE BLOOD COUNT 13.6 x10^3/uL (4.0-11.0)
[2019-03-06 05:43] LABS: ALBUMIN 2.7 g/dL (3.4-5.0); ALBUMIN/GLOBULIN RATIO 0.5 (1.0-1.7); CALCIUM 9.3 mg/dL (8.5-10.1); CREATININE 6.1 mg/dL (0.7-1.3); GFR 10.9; TOTAL BILIRUBIN 0.6 mg/dL (0.2-1.0)
== END | disposition home or self-care (01) ==
LOC: SPEC 03:38 → MERGE 03:38
PROVIDERS: ATTEND Internal Medicine
DX: C47 Malignant neoplasm of peripheral nerves and autonomic nervous system (principal)
CPT/HCPCS: 36415; 80053; 82550; 85025; 85651

== ENCOUNTER 2019-03-12 23:52 | Inpatient (IN) | payer BC, OTHER ==
[~2019-03-12] VITALS: Ht 175.3 cm; Wt 109.8 kg
[~2019-03-12 23:52] MED LIST changes: -AMMO225L8 TP; -AMMO226L TP; -ASPI81TA50 PO; -BISA10SU2 RC; -BISA10SU55 RC; -CEPH250C PO; -CLIN150C14 PO; -DIPH-121 PO; -GUAI-108 PO; -IPRA3AMP29 NEB; -LACT1CAP6 PO; -MAGN400O7 PO; -SENN-80 PO; -SENN1TAB99 PO
[2019-03-13] VITALS (18 sets, daily range): BP systolic 100–148; BP diastolic 49–69
[2019-03-13 00:36] LABS: BASO # 0.1 x10^3/uL (0.0-0.2); BASO % 1 % (0-3); EOS # 0.6 x10^3/uL (0.0-0.7); EOS % 7 % (0-3); HEMATOCRIT 28.4 % (39.0-53.0); HEMOGLOBIN 8.8 g/dL (13.0-17.5); LYMPH # 1.4 x10^3/uL (1.0-4.8); LYMPH % 17 % (24-48); MEAN CORPUSCULAR HEMOGLOBIN 27 pg (25-35); MEAN CORPUSCULAR HGB CONC 31 g/dL (31-37); MEAN CORPUSCULAR VOLUME 88 fL (79-100); MONO # 0.5 x10^3/uL (0.0-1.1); MONO % 6 % (0-9); NEUT # 5.7 x10^3uL (1.8-7.7); NEUT % 69 % (31-73); PLATELET COUNT 221 x10^3/uL (140-400); RED BLOOD COUNT 3.23 x10^6/uL (4.30-5.70); RED CELL DISTRIBUTION WIDTH 19.3 % (11.5-14.5); WHITE BLOOD COUNT 8.2 x10^3/uL (4.0-11.0)
[2019-03-13 01:52] LABS: CALCIUM 8.9 mg/dL (8.5-10.1); CREATININE 5.7 mg/dL (0.7-1.3); GFR 11.7; POTASSIUM 3.6 mmol/L (3.5-5.1)
[2019-03-13 01:58] LABS: ALBUMIN 2.8 g/dL (3.4-5.0); ALBUMIN/GLOBULIN RATIO 0.7 (1.0-1.7); TOTAL BILIRUBIN 0.5 mg/dL (0.2-1.0); TOTAL PROTEIN 6.9 g/dL (6.4-8.2)
[2019-03-13 02:47] LABS: BASE EXCESS ABG 7 mmol/L (-3-3); HCO3 ABG 33 mmol/L (21-28); PCO2 ABG 50 mmHg (35-46); PO2 ABG 149 mmHg (65-108); SAT O2 ABG 99 % (92-99)
[2019-03-13] MEDS ORDERED: FUROSEMIDE 40 MG/4 ML VIAL. IVP ONE (03:00)
[2019-03-13 03:10] LABS: FIO2 ABG 36
--- NOTE | 2019-03-13 04:40 | PHYS DOC ---
Past Medical History Past Medical History: A-Fib, CHF, CVA, Diabetes-Type II, High Cholesterol, Hypertension, DE Additional Past Medical Histor: SLEEP APNEA Past Surgical History: Pacemaker, Other Additional Past Surgical Histo: Back Sx, SHUNT R CHEST Alcohol Use: None Drug Use: None Adult General Chief Complaint Chief Complaint: SHORTNESS OF BREATH HPI HPI Patient is a 78 year old -[place] male presenting from [facility] with increased shortness of breath, edema, cough, and bilateral leg pain. Patient hypoxic, requiring oxygen on ED arrival. No fever chills, nausea vomiting or sweats. Patient has history of chronic renal failure. No chest pain. No other acute symptoms or complaints. [] Review of Systems Review of Systems Review of symptoms as per history of present illness. All other review symptoms are negative. All other systems were reviewed and found to be within normal limits, except as documented in this note. Current Medications Current Medications Current Medications Medications (Trade) Dose Ordered Sig/Bhavesh Start Time Stop Time Status Last Admin Dose Admin Furosemide (Lasix) 40 mg 1X ONCE 03/13/19 03:00 03/13/19 03:01 DC 03/13/19 02:56 40 MG Allergies Allergies Allergies Coded Allergies Type Severity Reaction Last Updated Verified I S O L A T I O N *CONTACT* Allergy Unknown 01/03/19 Yes No Known Medication Allergies Allergy Unknown 01/03/19 Yes Physical Exam Physical Exam Constitutional: Patient's labored, coarse diminished breath sounds bilaterally.. [] HENT: Normocephalic, atraumatic, bilateral external ears normal, oropharynx moist, no oral exudates, nose normal. [] Eyes: PERRLA, EOMI, conjunctiva normal, no discharge. [] Neck: Normal range of motion, no tenderness, supple, no stridor. [] Cardiovascular: Regular rate and rhythm.Edema lower extremity extending to proximal legs... [] Lungs & Thorax: Patient's labored, coarse diminished breath sounds bilaterally.[ ] Abdomen: Bowel sounds normal, soft, no tenderness. [] Skin: Warm, dry, no erythema, no rash. [] Back: No tenderness, no CVA tenderness. [] Neurologic: Alert and oriented X 3, normal motor function, normal sensory function, no focal deficits noted. [] Psychologic: Affect normal, judgement normal, mood normal. [] Current Patient Data Vital Signs Vital Signs Date Time Temp Pulse Resp B/P (MAP) Pulse Ox O2 Delivery O2 Flow Rate FiO2 03/13/19 02:49 98 BiPAP/CPAP 03/13/19 02:40 5.0 03/13/19 00:20 98.7 61 20 131/69 (89) 98.7 Lab Values Laboratory Tests Test 03/13/19 00:33 03/13/19 01:23 03/13/19 02:31 White Blood Count 8.2 x10^3/uL (4.0-11.0) Red Blood Count 3.23 x10^6/uL (4.30-5.70) L Hemoglobin 8.8 g/dL (13.0-17.5) L Hematocrit 28.4 % (39.0-53.0) L Mean Corpuscular Volume 88 fL (79-100) Mean Corpuscular Hemoglobin 27 pg (25-35) Mean Corpuscular Hemoglobin Concent 31 g/dL (31-37) Red Cell Distribution Width 19.3 % (11.5-14.5) H Platelet Count 221 x10^3/uL (140-400) Neutrophils (%) (Auto) 69 % (31-73) Lymphocytes (%) (Auto) 17 % (24-48) L Monocytes (%) (Auto) 6 % (0-9) Eosinophils (%) (Auto) 7 % (0-3) H Basophils (%) (Auto) 1 % (0-3) Neutrophils # (Auto) 5.7 x10^3uL (1.8-7.7) Lymphocytes # (Auto) 1.4 x10^3/uL (1.0-4.8) Monocytes # (Auto) 0.5 x10^3/uL (0.0-1.1) Eosinophils # (Auto) 0.6 x10^3/uL (0.0-0.7) Basophils # (Auto) 0.1 x10^3/uL (0.0-0.2) Sodium Level 139 mmol/L (136-145) Potassium Level 3.6 mmol/L (3.5-5.1) Chloride Level 97 mmol/L (98-107) L Carbon Dioxide Level 32 mmol/L (21-32) Anion Gap 10 (6-14) Blood Urea Nitrogen 71 mg/dL (8-26) H Creatinine 5.7 mg/dL (0.7-1.3) H Estimated GFR (Cockcroft-Gault) 11.7 BUN/Creatinine Ratio 12 (6-20) Glucose Level 185 mg/dL (70-99) H Calcium Level 8.9 mg/dL (8.5-10.1) Total Bilirubin 0.5 mg/dL (0.2-1.0) Aspartate Amino Transferase (AST) 26 U/L (15-37) Alanine Aminotransferase (ALT) 24 U/L (16-63) Alkaline Phosphatase 182 U/L (46-116) H Troponin I Quantitative 0.096 ng/mL (0.000-0.055) RW-Hnl-L-Type Natriuretic Peptide 60325 pg/mL (0-449) H Total Protein 6.9 g/dL (6.4-8.2) Albumin 2.8 g/dL (3.4-5.0) L Albumin/Globulin Ratio 0.7 (1.0-1.7) L O2 Saturation 99 % (92-99) Arterial Blood pH 7.43 (7.35-7.45) Arterial Blood pCO2 at Patient Temp 50 mmHg (35-46) H Arterial Blood pO2 at Patient Temp 149 mmHg (65-108) H Arterial Blood HCO3 33 mmol/L (21-28) H Arterial Blood Base Excess 7 mmol/L (-3-3) H FiO2 36 Laboratory Tests 03/13/19 00:33 Laboratory Tests 03/13/19 01:23 EKG EKG [EKG: reviewed] Radiology/Procedures Radiology/Procedures CXR: CM, PVC[] Course & Med Decision Making Course & Med Decision Making Pertinent Labs and Imaging studies reviewed. (See chart for details) [Improved with bipap, O2, and breathing tx. Lasix given. Will admit to Dr. Street. ] Dragon Disclaimer Dragon Disclaimer This electronic medical record was generated, in whole or in part, using a voice recognition dictation system. Departure Departure Impression: Primary Impression: Acute CHF (congestive heart failure) Additional Impression: End stage heart failure Disposition: ADMITTED INPATIENT Admitting Physician: Jay Street Condition: IMPROVED Referrals: JAY STREET MD (PCP) Problem Qualifiers FAUSTINOPUJA WALKER Mar 13, 2019 04:40
[2019-03-13] MEDS ORDERED: BISA10SU55 RC (06:42)
[2019-03-13] MEDS ORDERED: DIPH-121 PO (06:42)
[2019-03-13] MEDS ORDERED: GUAI-108 PO (06:42)
[2019-03-13] MEDS ORDERED: MAGN400O7 PO (06:42)
[2019-03-13] MEDS ORDERED: AMMO226L TP (06:42)
[2019-03-13] MEDS ORDERED: IPRA3AMP29 NEB (06:42)
[2019-03-13] MEDS ORDERED: SENN1TAB99 PO (06:42)
[2019-03-13] MEDS ORDERED: ONDANSETRON ODT 4 MG TAB.RAPDIS. PO SCH (07:30)
[2019-03-13] MEDS ORDERED: guaiFENesin DM 600/30MG 1 TAB TAB.ER.12H PO PRN (07:30)
--- NOTE | 2019-03-13 07:45 | RAD ---
Portable chest, 03/13/2019: HISTORY: Shortness of breath Comparison is made to a study from 03/07/2019. A left-sided transvenous pacing device remains in place with a single lead extending into the right ventricle. The heart is enlarged. The pulmonary vascularity is normal. No pulmonary infiltrate is seen. There is no evidence of pleural fluid. IMPRESSION: 1. Unchanged cardiomegaly. 2. No acute infiltrates. Electronically signed by: Raul Goldsmith MD (03/13/2019 7:42 AM) [facility]
--- NOTE | 2019-03-13 07:54 | EKG ---
[facility] [address] [place] [address] Test Date: 2019-03-13 Test Time: 00:27:07 Pat Name: NARENDRA MACIAS Department: Room: 106 1 Gender: M Ob Scrub Tech: : [id number] Requested By: PUJA HARMON Order Number: [id number] Reading MD: David Henning Measurements Intervals [place] Rate: 61 P: -125 SC: 198 QRS: -46 QRSD: 114 T: 147 QT: 466 QTc: 471 Interpretive Statements SINUS RHYTHM ABNORMAL LEFT AXIS DEVIATION LEFT ANTERIOR FASCICULAR BLOCK LVH WITH REPOLARIZATION ABNORMALITY PROLONGED QT ABNORMAL ECG Electronically Signed On 03-20-2019 12:57:01 CDT by David Henning
[2019-03-13] MEDS ORDERED: IV NORMAL SALINE 1000ML BAG 1,000 ML IV PRN ×2 (08:14)
[2019-03-13] MEDS ORDERED: DIALYSIS PATIENT. MC PRN (08:15)
[2019-03-13] MEDS ORDERED: diphenhydrAMINE 50 MG/ML VIAL IV PRN ×2 (08:15)
[2019-03-13] MEDS: IPRATRPIUM/ALBUTEROL 0.5/2.5MG 3 ML NEBU. NEB SCH ×4 (08:32→20:03)
[2019-03-13] MEDS: PANTOPRAZOLE 40 MG TABLET.DR. PO SCH (08:54)
[2019-03-13] MEDS: CLOPIDOGREL BISULFATE 75 MG TABLET PO SCH (08:54)
[2019-03-13] MEDS: ALLOPURINOL 100 MG TABLET. PO SCH (08:54)
[2019-03-13] MEDS: FOLIC/VIT B COMP W-C (RENAL) TABLET. PO SCH (08:54)
[2019-03-13] MEDS: ASPIRIN CHEWABLE 81 MG TABLET. PO SCH (08:54)
[2019-03-13] MEDS: LACTOBACILLUS RHAMNOSUS GG 1 CAPSULE. PO SCH (08:54)
[2019-03-13] MEDS: CYANOCOBALAMIN (VITAMIN B-12) 1,000 MCG TABLET. PO SCH (08:54)
[2019-03-13] MEDS: CHOLECALCIFEROL (VITAMIN D3) 1,000 UNIT TABLET PO SCH (08:54)
--- NOTE | 2019-03-13 09:19 | NUR ---
IP: Pt has a hx of mrsa in toe and R foot wounds 10/2018. Pt to be in contact precautions until there are 2 mrsa screen negatives 7 days apart and no open wounds. 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
[2019-03-13] MEDS ORDERED: MAGNESIUM HYDROXIDE 2,400 MG/30 ML ORAL.SUSP. PO PRN (10:30)
--- NOTE | 2019-03-13 10:32 | PDOC ---
Provider Note Provider Note history and physical dictated # [id number] KIMI TIDWELL MD Mar 13, 2019 10:32
--- NOTE | 2019-03-13 10:43 | PDOC2 ---
CONSULT Date of Consult Date of Consult DATE: 03/13/19 TIME: 10:36 Reason for Consult Reason for Consult: ESRD Identification/Chief Complaint Chief Complaint No complaints currently, somewhat somnolent Source Source: Chart review History of Present Illness Reason for Visit: Hx Obtained from chart review Patient is a 78 year old -[place] male ESRD on HD MWF , presented to ER from [facility] with increased shortness of breath, edema, cough, and bilateral leg pain. Patient was hypoxic, requiring oxygen on ED arrival. No fever chills, nausea vomiting or sweats. No chest pain. No other acute symptoms or complaints. His last HD was Wednesday, did not miss any treatments . Has Dx of MOUNIKA . CxR unremarkable Past Medical History Cardiovascular: AFIB, HTN, Other Pulmonary: Other CENTRAL NERVOUS SYSTEM: Periperal neuropathy GI: GERD, Other Heme/Onc: No pertinent hx Hepatobiliary: No pertinent hx Psych: No pertinent hx Rheumatologic: No pertinent hx Infectious disease: No pertinent hx Renal/: Other Endocrine: Diabetes Past Surgical History Past Surgical History: Pacemaker, Cataract Removal, Other Family History Family History: Coronary Artery Disease Social History ALCOHOL: none Drugs: None Lives: Alone Current Problem List Problem List Problems Medical Problems: (1) End stage heart failure Status: Acute Current Medications Current Medications Current Medications Furosemide (Lasix) 40 mg 1X ONCE IVP Last administered on 03/13/19at 02:56; Start 03/13/19 at 03:00; Stop 03/13/19 at 03:01; Status DC Albuterol/ Ipratropium (Duoneb) 3 ml RTQID NEB Last administered on 03/13/19at 08:32; Start 03/13/19 at 08:00; Stop 03/14/19 at 07:59 Allopurinol (Zyloprim) 100 mg DAILY PO Last administered on 03/13/19at 08:54; Start 03/13/19 at 09:00 Aspirin (Children'S Aspirin) 81 mg DAILY PO Last administered on 03/13/19at 08: 54; Start 03/13/19 at 09:00 Atorvastatin Calcium (Lipitor) 40 mg HS PO ; Start 03/13/19 at 21:00 Clopidogrel Bisulfate (Plavix) 75 mg DAILY PO Last administered on 03/13/19at 08 :54; Start 03/13/19 at 09:00 Cyanocobalamin (Vitamin B-12) 1,000 mcg DAILY PO Last administered on at 08:54; Start 03/13/19 at 09:00 Guaifenesin (MUCINEX ER with DM) 1 tab PRN Q12HRS PRN PO COUGH; Start 03/13/19 at 07:30 Ondansetron HCl (Zofran Odt) 4 mg TIDAC PO Last administered on 03/13/19 08:54 ; Start 03/13/19 at 07:30 Vitamin D (Vitamin D3) 1,000 unit DAILY PO Last administered on 03/13/19 08:54 ; Start 03/13/19 at 09:00 Vitamin B Complex/ Vitamin C (Krista-Beatriz) 1 tab DAILY PO Last administered on at 08:54; Start 03/13/19 at 09:00 Lactobacillus Rhamnosus (Culturelle) 1 cap BID PO Last administered on at 08:54; Start 03/13/19 at 09:00 Pantoprazole Sodium (Protonix) 40 mg DAILYAC PO Last administered on 03/13/19at 08:54; Start 03/13/19 at 07:30 Sodium Chloride 1,000 ml @ 1,000 mls/hr Q1H PRN IV hypotension; Start 03/13/19 at 08:14; Stop 03/13/19 at 14:13 Diphenhydramine HCl (Benadryl) 25 mg 1X PRN PRN IV ITCHING; Start 03/13/19 at 08:15; Stop 03/14/19 at 08:14 Diphenhydramine HCl (Benadryl) 25 mg 1X PRN PRN IV ITCHING; Start 03/13/19 at 08:15; Stop 03/14/19 at 08:14 Sodium Chloride 1,000 ml @ 400 mls/hr Q2H30M PRN IV PATENCY; Start 03/13/19 at 08:14; Stop 03/13/19 at 20:13 Info (PHARMACY MONITORING -- do not chart) 1 each PRN DAILY PRN MC SEE COMMENTS ; Start 03/13/19 at 08:15 Active Scripts Active Metoclopramide Hcl 5 Mg Tablet 5 Mg PO TIDACHC Ondansetron Odt (Ondansetron) 4 Mg Tab.rapdis 4 Mg PO TIDAC Tylenol (Acetaminophen) 325 Mg Tablet 325 Mg PO QID 30 Days Humalog (Insulin Lispro) 100 Unit/1 Ml Insuln.pen 0 Units SQ TIDWMEALS 30 Days BG 150-199= 1 units 200-299= 2 units 300-399= 4 units 400-499= 6 units ac tid sliding scale Reported Duoneb 0.5-3(2.5) Mg/3 Ml (Albuterol/Ipratropium) 3 Ml Ampul.neb 3 Ml NEB PRN Q4HRS PRN Senna-Docusate Sodium Tablet (Sennosides/Docusate Sodium) 1 Each Tablet 2 Each PO PRN QHS PRN Mucinex Dm Er 600-30 Mg Tablet (Guaifenesin/Dextromethorphan) 1 Each Tab.er.12h 1 Tab PO PRN Q12HRS Milk Of Magnesia (Magnesium Hydroxide) 400 Mg/5 Ml Oral.susp 400 Mg PO PRN DAILY PRN Lac-Hydrin Five (Ammonium Lactate) 226 Gm Lotion 226 Gm TP BID Dulcolax (Bisacodyl) 10 Mg Supp.rect 10 Mg RC PRN DAILY PRN Benadryl Allergy (Diphenhydramine Hcl) 12.5 Mg/5 Ml Liquid 25 Mg PO PRN Q6HRS PRN Vitamin B-12 (Cyanocobalamin (Vitamin B-12)) 1,000 Mcg Tablet 1 Tab PO DAILY Allopurinol 100 Mg Tablet 1 Tab PO DAILY Renal Caps Softgel (Folic Acid/Vitamin B Comp W-C) 1 Mg Capsule 1 Cap PO DAILY Acidophilus Lactobacilli (Lactobacillus Acidophilus) 1 Each Capsule 1 Each PO BID Protonix (Pantoprazole Sodium) 20 Mg Tablet.dr 40 Mg PO DAILY Renvela (Sevelamer Carbonate) 800 Mg Tablet 800 Mg PO TIDWMEALS Tylenol (Acetaminophen) 325 Mg Tablet 1 Tab PO PRN Q4HRS Aspirin 81 Mg Tab.chew 81 Mg PO DAILY Lipitor (Atorvastatin Calcium) 40 Mg Tablet 40 Mg PO HS Clopidogrel (Clopidogrel Bisulfate) 75 Mg Tablet 75 Mg PO DAILY Vitamin D-3 (Cholecalciferol (Vitamin D3)) 2,000 Unit Capsule 1,000 Unit PO DAILY Allergies Allergies: Coded Allergies: I S O L A T I O N *CONTACT* (Verified Allergy, Unknown, 01/03/19) vre No Known Medication Allergies (Verified Allergy, Unknown, 01/03/19) ROS Review of System Unable to obtain Physical Exam Physical Exam GEN: Mild distress HEENT: O2 by NC, Upper dentures are loose. NECK: supple HEART: S1, S2 LUNGS: mild rhonchi and decreased breath sounds anteriorly. ABDOMEN: Soft, obese, nontender. 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 Anemia- Aranesp Acute hypoxic and hypercarbic respiratory failure No Vol Overload clinically, HD Today Obstructive sleep apnea- At [facility] Diabetes mellitus type 2. Peripheral arterial disease. Severe protein-calorie malnutrition. Labs Labs Laboratory Tests Test 03/13/19 00:33 03/13/19 01:23 03/13/19 02:31 03/13/19 06:20 White Blood Count 8.2 x10^3/uL (4.0-11.0) Red Blood Count 3.23 x10^6/uL (4.30-5.70) Hemoglobin 8.8 g/dL (13.0-17.5) Hematocrit 28.4 % (39.0-53.0) Mean Corpuscular Volume 88 fL (79-100) Mean Corpuscular Hemoglobin 27 pg (25-35) Mean Corpuscular Hemoglobin Concent 31 g/dL (31-37) Red Cell Distribution Width 19.3 % (11.5-14.5) Platelet Count 221 x10^3/uL (140-400) Neutrophils (%) (Auto) 69 % (31-73) Lymphocytes (%) (Auto) 17 % (24-48) Monocytes (%) (Auto) 6 % (0-9) Eosinophils (%) (Auto) 7 % (0-3) Basophils (%) (Auto) 1 % (0-3) Neutrophils # (Auto) 5.7 x10^3uL (1.8-7.7) Lymphocytes # (Auto) 1.4 x10^3/uL (1.0-4.8) Monocytes # (Auto) 0.5 x10^3/uL (0.0-1.1) Eosinophils # (Auto) 0.6 x10^3/uL (0.0-0.7) Basophils # (Auto) 0.1 x10^3/uL (0.0-0.2) Sodium Level 139 mmol/L (136-145) Potassium Level 3.6 mmol/L (3.5-5.1) Chloride Level 97 mmol/L (98-107) Carbon Dioxide Level 32 mmol/L (21-32) Anion Gap 10 (6-14) Blood Urea Nitrogen 71 mg/dL (8-26) Creatinine 5.7 mg/dL (0.7-1.3) Estimated GFR (Cockcroft-Gault) 11.7 BUN/Creatinine Ratio 12 (6-20) Glucose Level 185 mg/dL (70-99) Calcium Level 8.9 mg/dL (8.5-10.1) Total Bilirubin 0.5 mg/dL (0.2-1.0) Aspartate Amino Transf (AST/SGOT) 26 U/L (15-37) Alanine Aminotransferase (ALT/SGPT) 24 U/L (16-63) Alkaline Phosphatase 182 U/L (46-116) Troponin I Quantitative 0.096 ng/mL (0.000-0.055) 0.094 ng/mL (0.000-0.055) OA-Vvp-Y-Type Natriuretic Peptide 35283 pg/mL (0-449) Total Protein 6.9 g/dL (6.4-8.2) Albumin 2.8 g/dL (3.4-5.0) Albumin/Globulin Ratio 0.7 (1.0-1.7) O2 Saturation 99 % (92-99) Arterial Blood pH 7.43 (7.35-7.45) Arterial Blood pCO2 at Patient Temp 50 mmHg (35-46) Arterial Blood pO2 at Patient Temp 149 mmHg (65-108) Arterial Blood HCO3 33 mmol/L (21-28) Arterial Blood Base Excess 7 mmol/L (-3-3) FiO2 36 Laboratory Tests Test 03/13/19 00:33 4/15/19 01:23 03/13/19 02:31 03/13/19 06:20 White Blood Count 8.2 x10^3/uL (4.0-11.0) Red Blood Count 3.23 x10^6/uL (4.30-5.70) Hemoglobin 8.8 g/dL (13.0-17.5) Hematocrit 28.4 % (39.0-53.0) Mean Corpuscular Volume 88 fL (79-100) Mean Corpuscular Hemoglobin 27 pg (25-35) Mean Corpuscular Hemoglobin Concent 31 g/dL (31-37) Red Cell Distribution Width 19.3 % (11.5-14.5) Platelet Count 221 x10^3/uL (140-400) Neutrophils (%) (Auto) 69 % (31-73) Lymphocytes (%) (Auto) 17 % (24-48) Monocytes (%) (Auto) 6 % (0-9) Eosinophils (%) (Auto) 7 % (0-3) Basophils (%) (Auto) 1 % (0-3) Neutrophils # (Auto) 5.7 x10^3uL (1.8-7.7) Lymphocytes # (Auto) 1.4 x10^3/uL (1.0-4.8) Monocytes # (Auto) 0.5 x10^3/uL (0.0-1.1) Eosinophils # (Auto) 0.6 x10^3/uL (0.0-0.7) Basophils # (Auto) 0.1 x10^3/uL (0.0-0.2) Sodium Level 139 mmol/L (136-145) Potassium Level 3.6 mmol/L (3.5-5.1) Chloride Level 97 mmol/L (98-107) Carbon Dioxide Level 32 mmol/L (21-32) Anion Gap 10 (6-14) Blood Urea Nitrogen 71 mg/dL (8-26) Creatinine 5.7 mg/dL (0.7-1.3) Estimated GFR (Cockcroft-Gault) 11.7 BUN/Creatinine Ratio 12 (6-20) Glucose Level 185 mg/dL (70-99) Calcium Level 8.9 mg/dL (8.5-10.1) Total Bilirubin 0.5 mg/dL (0.2-1.0) Aspartate Amino Transf (AST/SGOT) 26 U/L (15-37) Alanine Aminotransferase (ALT/SGPT) 24 U/L (16-63) Alkaline Phosphatase 182 U/L (46-116) Troponin I Quantitative 0.096 ng/mL (0.000-0.055) 0.094 ng/mL (0.000-0.055) AY-Jsj-X-Type Natriuretic Peptide 57626 pg/mL (0-449) Total Protein 6.9 g/dL (6.4-8.2) Albumin 2.8 g/dL (3.4-5.0) Albumin/Globulin Ratio 0.7 (1.0-1.7) O2 Saturation 99 % (92-99) Arterial Blood pH 7.43 (7.35-7.45) Arterial Blood pCO2 at Patient Temp 50 mmHg (35-46) Arterial Blood pO2 at Patient Temp 149 mmHg (65-108) Arterial Blood HCO3 33 mmol/L (21-28) Arterial Blood Base Excess 7 mmol/L (-3-3) FiO2 36 Review All relevant outside records, renal labs, imaging studies, telemetry/EKG's were reviewed. Images Images CxR-- Comparison is made to a study from 03/07/2019. A left-sided transvenous pacing device remains in place with a single lead extending into the right ventricle. The heart is enlarged. The pulmonary vascularity is normal. No pulmonary infiltrate is seen. There is no evidence of pleural fluid. IMPRESSION: 1. Unchanged cardiomegaly. 2. No acute infiltrates. WAYLON GONZALEZ MD Mar 13, 2019 10:43
[2019-03-13] MEDS ORDERED: ONDANSETRON ODT 4 MG TAB.RAPDIS. PO PRN (10:45)
[2019-03-13] MEDS: INSULIN LISPRO 300 UNITS/3 ML INSULN.PEN. SQ SCH ×2 (11:48→17:00)
--- NOTE | 2019-03-13 11:48 | CONS ---
DATE OF CONSULTATION: ATTENDING PHYSICIAN: Dr. Street. REASON FOR CONSULTATION: Dyspnea. HISTORY OF PRESENT ILLNESS: The patient is a 78-year-old obese male with a BMI of 35.6. The patient uses CPAP at home, not sure about the compliance. He was brought in from [facility] with increased shortness of breath and lower extremity edema and signs of venous stasis. He has a cough with white sputum production. He is on dialysis. His chest x-ray was reviewed by me. The vascularity looks at the upper limit of normal, but no obvious CHF was noted. His arterial blood gases showed compensated respiratory acidosis with a pH of 7.43, pCO2 of 50 and a pO2 of 149, with a bicarbonate 33 on 36% FiO2. Initially, he was not able to speak well. We took his upper dentures off, and he was able to talk better. He says this is his baseline speech. No fever and no chills were reported. No headaches, no nausea, vomiting or diarrhea. He does have lower extremity edema. Cardiology has also been consulted. PAST MEDICAL HISTORY: Significant for history of end-stage renal disease, on hemodialysis. History of CVA, history of type 2 diabetes, dyslipidemia, hypertension, atrial fibrillation, history of sleep apnea, History of pacemaker. PAST SURGICAL HISTORY: Shunt. REVIEW OF SYSTEMS: Limited, but pertinent positives discussed in my history of present illness, otherwise noncontributory. All systems that were negative were reviewed as well. ALLERGIES: None. CURRENT MEDICATIONS: Reviewed as listed in the MRAD. SOCIAL HISTORY: Had minimal history of tobacco use. PHYSICAL EXAMINATION: VITAL SIGNS: Blood pressure stable, pulse ox 100% on 5 liters, afebrile. NECK: Supple. LUNGS: With diminished breath sounds. CARDIOVASCULAR: With no arrhythmia. ABDOMEN: Soft, nontender. EXTREMITIES: With pitting edema and venous stasis both lower extremities. LABORATORY DATA: Reviewed. ABG discussed in my history of present illness. BUN 71, creatinine 5.7. ProBNP is 23,000. Troponin is elevated at 0.096. Albumin is 2.8. IMPRESSION: 1. Acute hypoxic respiratory failure, likely related to mild congestive heart failure, although not well seen on chest x-ray. 2. Chronic hypercapnia, likely related to obesity hypoventilation syndrome. Denies significant tobacco history. ABG shows compensated respiratory acidosis. 3. End-stage renal disease, on hemodialysis. RECOMMENDATIONS: 1. Discussed with RN and RT. At this point, continue with hemodialysis with ultrafiltration. 2. We will do a noncontrast CT post-hemodialysis to assess for any infiltrates. 3. Wean oxygen off. 4. Minimize the use of narcotics. 5. Continue DuoNebs. 6. Deep venous thrombosis prophylaxis. 7. Discussed with Renal. We will follow along with you. Critical care time 35 minutes. YARELIS COWAN MD DR: NEVIN/dianna JOB#: [id number] / [id number]
--- NOTE | 2019-03-13 12:00 | PDOC2 ---
YULI GANDHI BUSINESS PROCESS SPECIALIST 03/13/19 1200: CARDIAC CONSULT DATE OF CONSULT Date of Consult DATE: 03/13/19 TIME: 11:50 REASON FOR CONSULT Reason for Consult: CHF Exacerbation REFERRING PHYSICIAN Referring Physician: Dr. Duran SOURCE Source: Chart review, Patient HISTORY OF PRESENT ILLNESS HISTORY OF PRESENT ILLNESS This is a 78 yo male, with a history of AFIB, CAD, CHF, Hypertension, hyperlipidemia, ESRD on HD, and PAD with chronic right foot wound with osteomyelitis, who presented from [facility] secondary to shortness of breath. Patient presently drowsy; difficulty to attain history from. Per chart review, patient was noted to be hypoxic with oxygen saturation in the low 80's so he was sent to [facility] for further evaluation and treatment. Was initially place on BiPAP, now is on 2LNC. Denies any chest pain SOA presently. Is scheduled for flap procedure on right foot later this week at [facility]. Follows with [facility] PAST MEDICAL HISTORY Past Medical History Cardiovascular: AFIB, CAD, CHF, HTN, Hyperlipidemia, PAD Pulmonary: Other (MOUNIKA) CENTRAL NERVOUS SYSTEM: CVA GI: GERD, Other (colon polyps) Heme/Onc: psoas hematoma Hepatobiliary: No pertinent hx Psych: No pertinent hx Musculoskeletal: Osteoarthritis Rheumatologic: No pertinent hx Infectious disease: No pertinent hx ENT: No pertinent hx Renal/: Chronic renal insuff Endocrine: Diabetes (2) Dermatology: No pertinent hx PAST SURGICAL HISTORY Past Surgical History Other (left toe amputation; PCI/stent; SUPERINTENDENT/stent, PPM, amputation of the right 3rd through the 5th toes, debridement of a right ankle wound, SUPERINTENDENT/stenting of the right SFA, POBA right PT and Peroneal) FAMILY HISTORY Family History Coronary Artery Disease (father) SOCIAL HISTORY Social History Smoke: No ALCOHOL: none Drugs: None Lives: [facility] CURRENT MEDICATIONS CURRENT MEDICATIONS Current Medications Medications (Trade) Dose Ordered Sig/Bhavesh Route PRN Reason Start Time Stop Time Status Last Admin Dose Admin Furosemide (Lasix) 40 mg 1X ONCE IVP 03/13/19 03:00 03/13/19 03:01 DC 03/13/19 02:56 Albuterol/ Ipratropium (Duoneb) 3 ml RTQID NEB 03/13/19 08:00 03/14/19 07:59 03/13/19 08:32 Allopurinol (Zyloprim) 100 mg DAILY PO 03/13/19 09:00 03/13/19 08:54 Aspirin (Children'S Aspirin) 81 mg DAILY PO 03/13/19 09:00 03/13/19 08:54 Clopidogrel Bisulfate (Plavix) 75 mg DAILY PO 03/13/19 09:00 03/13/19 08:54 Cyanocobalamin (Vitamin B-12) 1,000 mcg DAILY PO 03/13/19 09:00 03/13/19 08:54 Ondansetron HCl (Zofran Odt) 4 mg TIDAC PO 03/13/19 07:30 03/13/19 10:41 DC 03/13/19 08:54 Vitamin D (Vitamin D3) 1,000 unit DAILY PO 03/13/19 09:00 03/13/19 08:54 Vitamin B Complex/ Vitamin C (Krista-Beatriz) 1 tab DAILY PO 03/13/19 09:00 03/13/19 08:54 Lactobacillus Rhamnosus (Culturelle) 1 cap BID PO 03/13/19 09:00 03/13/19 08:54 Pantoprazole Sodium (Protonix) 40 mg DAILYAC PO 03/13/19 07:30 03/13/19 08:54 ALLERGIES ALLERGIES: Coded Allergies: I S O L A T I O N *CONTACT* (Verified Allergy, Unknown, 01/03/19) vre No Known Medication Allergies (Verified Allergy, Unknown, 01/03/19) ROS Review of System 14 point ROS conducted with pertinent positives noted above in HPI. PHYSICAL EXAM PHYSICAL EXAM General: drowsy, No acute distress HEENT: Atraumatic, Mucous membr. moist/pink Lungs: Clear to auscultation, Normal air movement Heart: Normal S1, Normal S2, Other (100% v-paced with underlying AFIB) Abdomen: Soft, No tenderness Extremities: no edema. Bilateral LE with dressings intact Skin: No breakdown, No significant lesion Neuro: Normal speech, Sensation intact Psych/Mental Status: Mental status NL, Mood NL, Other (forgetful) MUSCULOSKELETAL: Osteoarthritic changes both hands VITALS VITALS Vital Signs Date Time Temp Pulse Resp B/P (MAP) Pulse Ox O2 Delivery O2 Flow Rate FiO2 03/13/19 11:00 61 22 112/69 (83) 100 Nasal Cannula 5.0 03/13/19 08:00 97.6 97.6 LABS Lab: Laboratory Tests Test 03/13/19 00:33 03/13/19 01:23 03/13/19 02:31 03/13/19 06:20 White Blood Count 8.2 x10^3/uL (4.0-11.0) Red Blood Count 3.23 x10^6/uL (4.30-5.70) Hemoglobin 8.8 g/dL (13.0-17.5) Hematocrit 28.4 % (39.0-53.0) Mean Corpuscular Volume 88 fL (79-100) Mean Corpuscular Hemoglobin 27 pg (25-35) Mean Corpuscular Hemoglobin Concent 31 g/dL (31-37) Red Cell Distribution Width 19.3 % (11.5-14.5) Platelet Count 221 x10^3/uL (140-400) Neutrophils (%) (Auto) 69 % (31-73) Lymphocytes (%) (Auto) 17 % (24-48) Monocytes (%) (Auto) 6 % (0-9) Eosinophils (%) (Auto) 7 % (0-3) Basophils (%) (Auto) 1 % (0-3) Neutrophils # (Auto) 5.7 x10^3uL (1.8-7.7) Lymphocytes # (Auto) 1.4 x10^3/uL (1.0-4.8) Monocytes # (Auto) 0.5 x10^3/uL (0.0-1.1) Eosinophils # (Auto) 0.6 x10^3/uL (0.0-0.7) Basophils # (Auto) 0.1 x10^3/uL (0.0-0.2) Sodium Level 139 mmol/L (136-145) Potassium Level 3.6 mmol/L (3.5-5.1) Chloride Level 97 mmol/L (98-107) Carbon Dioxide Level 32 mmol/L (21-32) Anion Gap 10 (6-14) Blood Urea Nitrogen 71 mg/dL (8-26) Creatinine 5.7 mg/dL (0.7-1.3) Estimated GFR (Cockcroft-Gault) 11.7 BUN/Creatinine Ratio 12 (6-20) Glucose Level 185 mg/dL (70-99) Calcium Level 8.9 mg/dL (8.5-10.1) Total Bilirubin 0.5 mg/dL (0.2-1.0) Aspartate Amino Transf (AST/SGOT) 26 U/L (15-37) Alanine Aminotransferase (ALT/SGPT) 24 U/L (16-63) Alkaline Phosphatase 182 U/L (46-116) Troponin I Quantitative 0.096 ng/mL (0.000-0.055) 0.094 ng/mL (0.000-0.055) KR-Ehz-B-Type Natriuretic Peptide 16107 pg/mL (0-449) Total Protein 6.9 g/dL (6.4-8.2) Albumin 2.8 g/dL (3.4-5.0) Albumin/Globulin Ratio 0.7 (1.0-1.7) O2 Saturation 99 % (92-99) Arterial Blood pH 7.43 (7.35-7.45) Arterial Blood pCO2 at Patient Temp 50 mmHg (35-46) Arterial Blood pO2 at Patient Temp 149 mmHg (65-108) Arterial Blood HCO3 33 mmol/L (21-28) Arterial Blood Base Excess 7 mmol/L (-3-3) FiO2 36 Test 03/13/19 11:47 Glucose (Fingerstick) 94 mg/dL (70-99) ECHOCARDIOGRAM ECHOCARDIOGRAM <Conclusion> The left ventricular systolic function is normal. The Ejection Fraction is 55-60%. There is normal LV segmental wall motion. There is a pacemaker lead in the right atrium and right ventricle. Mild aortic stenosis. Trace mitral regurgitation. Trace tricuspid regurgitation with an estimated PAP 56 mmHg. There is no evidence of significant pericardial effusion. DATE: 11/07/181801 ASSESSMENT/PLAN ASSESSMENT/PLAN 1. Acute respiratory failure; improved, off BiPAP 2. Mild acute on chronic diastolic HF 3. Persistent AFIB; previously on warfarin, was discontinued due to psoas hematoma. Rate controlled 4. Hypertension; controlled 5. CAD; s/p PCI/stent in the past. clinically stable. CP free. 6. PAD with chronic right foot wound. s/p recent SUPERINTENDENT/stent. Scheduled for procedure at later this week 7. Mild troponin elevation. Most probably type II, demand ischemia 8. H/o CVA with left side hemiparesis 9. Morbid obesity, MOUNIKA; CPAP at home 10. ESRD on HD 11. SSS s/p PPM ([employer]) 12. Diabetes, II 13. Hyperlipidemia Recommendations Trend troponin Continue with ASA, Plavix, statin Fluid offloading/management via HD as per nephrology. Follow pulm recommendations PAL CAMACHO MD 03/13/19 1635: CARDIAC CONSULT ASSESSMENT/PLAN ASSESSMENT/PLAN Patient seen and examined. Agree with STERILE TECH's assessment and plan. Continue fluid removal with hemodialysis for mild acute on chronic diastolic heart failure Permanent atrial fibrillation rate controlled He is a poor candidate for long-term anticoagulation CAD status clinically stable Slight troponin elevation probably demand ischemia SSS s/p PPM stable Thank you for your consultation YULI GANDHI APRN Mar 13, 2019 12:00 PAL CAMACHO MD Mar 13, 2019 16:35
--- NOTE | 2019-03-13 12:16 | HP ---
ADMIT DATE: 03/13/2019 HISTORY OF PRESENT ILLNESS: The patient is a 78-year-old -[place] male who has a history of end-stage renal disease, on hemodialysis, Mondays, Wednesdays and Fridays, who has diabetes mellitus type 2 and peripheral arterial disease, anemia of chronic disease, hyperlipidemia, morbid obesity and has a chronic right foot wound with previous osteomyelitis, completed his course of IV antibiotics and was to be scheduled for a flap procedure at [facility] later this week, he was scheduled to have a flap procedure for his right foot later this week. The patient through the weekend received a couple of calls from the nurses taking care of him at [facility]. Once the nurse called me during the night and said that the patient was having some problems with swallowing his secretions and pills and ordered a transderm scopolamine patch. He said it was not on formulary and was attempting to get that. Then, I got a call last night that the patient was hypoxic with an oxygen saturation of 83%, so the patient was sent to the [facility] Emergency Room. I spoke with the Emergency Room doctor this morning who felt that the patient had congestive heart failure. The patient received IV Lasix. Chest x-ray reviewed by the radiologist showed no evidence of congestive heart failure. He did have a chest x-ray done a couple days ago last week, and the lungs were clear at that time too. The patient had an arterial blood gas done with oxygen and did have some CO2 retention. He was treated with BiPAP, admitted to the Intensive Care Unit, currently receiving hemodialysis and is off BiPAP, on oxygen per nasal cannula. He is quite sleepy this morning, and he can wake up and say hello and goes right back to sleep. He does have a history of obstructive sleep apnea and apparently is on CPAP. The patient is admitted to [facility] for further evaluation of his acute hypoxic and hypercarbic respiratory failure. ALLERGIES AND INTOLERANCES: None. MEDICATIONS: He is taking allopurinol 100 mg every day, aspirin 81 mg every day, atorvastatin 40 mg at bedtime, vitamin D 1000 units every day, Plavix 75 mg every day, vitamin B12 of 1000 mcg p.o. daily, Nephro-Beatriz 1 every day. He is on Robitussin-DM p.r.n., lactobacilli 1 b.i.d., Zofran 4 mg before meals t.i.d., Protonix 40 mg every day. PAST MEDICAL HISTORY: Significant for end-stage renal disease, on hemodialysis Mondays, Wednesdays and Fridays. Diabetes mellitus type 2, on NovoLog insulin sliding scale. Peripheral arterial disease, anemia of chronic disease, diabetic peripheral neuropathy, morbid obesity, debility. He also has a nonhealing wound in his right foot. He has had amputations of all the digits of the right foot. He was to be scheduled for a flap procedure for his right foot later this week. He also recently completed a course of IV antibiotics for osteomyelitis involving the right foot. He has had a stent to his left femoral artery in the past with a previous amputation of left great toe. He has severe peripheral arterial disease involving the right lower extremity, especially from the knees down. SOCIAL HISTORY: Does not drink alcohol nor does he smoke cigarettes. He resides in a fdc. FAMILY HISTORY: Noncontributory. REVIEW OF SYSTEMS: Unobtainable as he is quite sleepy. PHYSICAL EXAMINATION: VITAL SIGNS: Temperature is 97.6 degrees, apical pulse 59, respiratory rate was 30, blood pressure is 130/65, oxygen saturation 100% on 5 liters per nasal cannula. HEENT: EYES: He opens his eyes momentarily. Gaze was conjugate. Mouth is symmetrical. Upper dentures are loose. NECK: There is no cervical lymphadenopathy or thyroid enlargement. HEART: Reveals an S1, S2. There is no S3 or murmur. LUNGS: Reveal some mild rhonchi and decreased breath sounds anteriorly. ABDOMEN: Soft, obese, nontender. EXTREMITIES: Lower extremities without edema. He has got a dry dressing over his right foot. He has got dry skin over his left foot. Could not appreciate any pulses in the left foot, the left foot is warm. There is no gangrene. NEUROLOGIC: Limited because he is sleeping. LABORATORY DATA: His white count is 8.2, with hemoglobin 8.8, with a platelet count of 221,000, with 69 polys and 17 lymphocytes. It should be noted that he is currently receiving hemodialysis. His arterial blood gas showed on oxygen at 2:31 this morning showed a pH of 7.43, pCO2 of 50 and a pO2 of 149 on FiO2 of 36%. Serum sodium 139, potassium 3.6, chloride 97, total CO2 of 32, blood sugar 185. Liver function tests were okay except for an alkaline phosphatase was 182, albumin was 2.8. An EKG, which showed normal sinus rhythm, left axis deviation, left anterior hemiblock and nonspecific ST-T wave changes. He had a chest x-ray done this morning, which showed unchanged cardiomegaly and no acute infiltrates. Pulmonary vascularity was normal, but no evidence of pleural fluid. ASSESSMENT: 1. Acute hypoxic and hypercarbic respiratory failure. The etiology of this is unclear. 2. Obstructive sleep apnea. 3. Chronic right foot wound. 4. End-stage renal disease, on hemodialysis. 5. Diabetes mellitus type 2. 6. Peripheral arterial disease. 7. Anemia of chronic kidney disease. 8. Hyperlipidemia. 9. Morbid obesity. 10. Severe protein-calorie malnutrition. PLAN: At this time is to consult Dr. Montgomery, the broacher and will consult Dr. Mayes for Cardiology, although at this time there is no evidence of congestive heart failure, and we will also consult the wound care doctor and wound care team. We will also consult Dr. James for Nephrology as he is receiving hemodialysis now. We will get a venous Doppler of both legs to rule out a deep vein thrombosis. Also have Speech Therapy evaluate his swallow as the nurse mentioned he was having problems with secretions and swallowing of some of his food and pills over the weekend. We will try to put more adhesive on his upper dentures, which are loose. We will continue with the oxygen, which is at high flow 5 liters per nasal cannula and try to lower it to maintain oxygen saturations above 90%, do not make his carbon dioxide retention worse. We will continue with his other current medications. We will order some heparin for deep vein thrombosis prophylaxis. KIMI TIDWELL MD DR: LOBO/dianna JOB#: [id number] / [id number]
--- NOTE | 2019-03-13 12:46 | RAD ---
EXAM: Bilateral lower extremity venous Doppler sonogram. HISTORY: Pain and swelling. TECHNIQUE: Dawson scale and color Doppler sonographic evaluation of the bilateral lower extremity veins with spectral waveform analysis was performed. FINDINGS: The left peroneal veins are not seen. There is normal color flow, normal compressibility and there are normal spectral waveforms in the remainder of the lower extremity veins. IMPRESSION: No Doppler evidence of lower extremity deep venous thrombosis, with nonassessment of the left peroneal veins due to nonvisualization. Electronically signed by: Marie Kapoor MD (03/13/2019 12:42 PM) [place] [id number]
--- NOTE | 2019-03-13 13:43 | NUR ---
Wound Care Wound care consult for multiple DFUs to bilat feet. Cleansed wounds and redressed (see wound assessment). Wound vac applied to right distal foot wound with silver foam at 125 mmHg continuous suction. WC will change all dressings on Wed, Wed and Wednesday while inpatient. No other wounds noted on full skin inspection. Pt left on right side with heels floated.
--- NOTE | 2019-03-13 14:52 | RAD ---
CT HEAD WO CONTRAST History: Altered mental status Comparison: None. Technique: Noncontrast CT imaging was performed of the head. Exposure: One or more of the following individualized dose reduction techniques were utilized for this examination: 1. Automated exposure control 2. Adjustment of the mA and/or kV according to patient size 3. Use of iterative reconstruction technique. Findings: No acute extra-axial or parenchymal hemorrhage is identified. There is no significant intra-axial mass effect, midline shift, or extra-axial fluid collection. The piper-white differentiation of the major vascular territories is preserved. Ventricular size is proportionate to the sulcal spaces. There is [id number] fairly generalized supratentorial atrophy. There is multifocal moderate to severe ill-defined low-density of the supratentorial parenchyma greatest of the frontal lobes. Mastoid air cells are aerated. There is complete opacification of the right sphenoid sinus, also contiguous density projecting into posterior right ethmoid air cells and right nasal cavity. No acute calvarial abnormality is identified. There is atherosclerotic calcification carotid siphons bilaterally. Impression: 1. There is generalized supratentorial atrophy. There is multifocal ill-defined low-density of the supratentorial parenchyma greater of the frontal lobes, nonspecific findings more commonly due to chronic microvascular ischemic disease in a patient this age. 2. There is complete opacification of the right sphenoid sinus also with abnormal contiguous density protruding into the right posterior ethmoid air cells and right nasal cavity, underlying mass possible. Electronically signed by: Manuel Squires MD (03/13/2019 2:49 PM) [id number]
[2019-03-13] MEDS: HEPARIN for SUB-Q USE 5,000 UNIT/ML VIAL. SQ SCH (15:19)
--- NOTE | 2019-03-13 15:29 | NUR ---
SS following up with discharge planning. SS received notification from [facility], ; fax [phone], stating that pt was a LTC resident from there facility and was able to return when medically stable. Clair DINH, from [facility], notified SS that pt's DPOA is her daughter, Madelyn Garcia, . Clair faxed SS copy of pt's Medical DPOA.
--- NOTE | 2019-03-13 16:17 | RAD ---
CT of the chest without contrast, 03/13/2019: HISTORY: Evaluate congestive heart failure Noncontrast scans were obtained with multiplanar reconstructions produced. The heart is moderately enlarged. A transvenous pacing lead extends into the right ventricle. Extensive coronary artery calcifications are present. There is moderate calcific plaquing of the thoracic aorta without evidence of aneurysm. Multiple small mediastinal lymph nodes are seen. The largest of these along the anterolateral aspect of the aortic arch is a borderline size measuring 1.1 cm in short axis dimension. The thyroid gland is mildly enlarged and asymmetric being larger on the left than the right. There is a small amount of left-sided pleural fluid. There are minimal streaky and groundglass opacities posteriorly in the lungs suggesting dependent atelectasis and/or edema. There is a 6 mm nonspecific peripheral parenchymal nodule in the posterior lateral aspect of the left lower lobe as seen on axial image 30 uterus series #2. Small radiopacities along the posterior wall the gallbladder probably represent calculi. There is mild bilateral renal cortical scarring. IMPRESSION: 1. Moderate cardiomegaly with extensive coronary artery calcifications. 2. Mediastinal lymph nodes of borderline size. 3. Small right pleural effusion. 4. Mild bilateral dependent atelectasis and/or edema. 5. Small nonspecific left basilar pulmonary nodule. CT follow-up may be prudent to exclude a neoplastic etiology. 6. Cholelithiasis. PQRS Compliance Statement: One or more of the following individualized dose reduction techniques were utilized for this examination: 1. Automated exposure control 2. Adjustment of the mA and/or kV according to patient size 3. Use of iterative reconstruction technique Electronically signed by: Raul Goldsmith MD (03/13/2019 4:14 PM) [facility]
[2019-03-13] MEDS ORDERED: DEXTROSE 50% 25 GM / 50ML DISP.SYRIN. IV ONE ×3 (18:00→18:15)
[2019-03-13] MEDS ORDERED: DEXTROSE ORAL GEL 15 GM TUBE. ONE (18:05)
[2019-03-13] MEDS ORDERED: DEXTROSE ORAL GEL 15 GM TUBE. PO ONE (18:15)
[2019-03-13] MEDS ORDERED: DEXTROSE ORAL GEL 15 GM TUBE. PO PRN (18:30)
[2019-03-13] MEDS ORDERED: DARBEPOETIN ALFA 60 MCG/0.3 ML DISP.SYRIN. SQ SCH (21:00)
[2019-03-14] VITALS (15 sets, daily range): BP systolic 100–159; BP diastolic 54–76
[2019-03-14] MEDS: LACTOBACILLUS RHAMNOSUS GG 1 CAPSULE. PO SCH ×3 (01:45→20:06)
[2019-03-14] MEDS: ATORVASTATIN CALCIUM 40 MG TABLET. PO SCH ×2 (01:45→20:06)
[2019-03-14] MEDS: HEPARIN for SUB-Q USE 5,000 UNIT/ML VIAL. SQ SCH ×4 (01:47→22:27)
[2019-03-14 06:17] LABS: BASO # 0.1 x10^3/uL (0.0-0.2); BASO % 1 % (0-3); EOS # 0.5 x10^3/uL (0.0-0.7); EOS % 8 % (0-3); HEMATOCRIT 32.9 % (39.0-53.0); LYMPH # 1.3 x10^3/uL (1.0-4.8); LYMPH % 20 % (24-48); MEAN CORPUSCULAR HEMOGLOBIN 28 pg (25-35); MEAN CORPUSCULAR HGB CONC 30 g/dL (31-37); MEAN CORPUSCULAR VOLUME 92 fL (79-100); MONO # 0.5 x10^3/uL (0.0-1.1); MONO % 8 % (0-9); NEUT # 3.9 x10^3uL (1.8-7.7); NEUT % 63 % (31-73); PLATELET COUNT 185 x10^3/uL (140-400); RED BLOOD COUNT 3.59 x10^6/uL (4.30-5.70); RED CELL DISTRIBUTION WIDTH 19.1 % (11.5-14.5); WHITE BLOOD COUNT 6.3 x10^3/uL (4.0-11.0)
[2019-03-14 06:32] LABS: ALBUMIN 2.8 g/dL (3.4-5.0); ALBUMIN/GLOBULIN RATIO 0.6 (1.0-1.7); CALCIUM 8.9 mg/dL (8.5-10.1); CREATININE 4.2 mg/dL (0.7-1.3); GFR 16.7; POTASSIUM 4.6 mmol/L (3.5-5.1); TOTAL BILIRUBIN 0.7 mg/dL (0.2-1.0); TOTAL PROTEIN 7.2 g/dL (6.4-8.2)
[2019-03-14] MEDS: IPRATRPIUM/ALBUTEROL 0.5/2.5MG 3 ML NEBU. NEB SCH ×2 (07:37→20:16)
[2019-03-14] MEDS: PANTOPRAZOLE 40 MG TABLET.DR. PO SCH (07:55)
[2019-03-14] MEDS: INSULIN LISPRO 300 UNITS/3 ML INSULN.PEN. SQ SCH ×3 (08:00→17:51)
[2019-03-14] MEDS: CLOPIDOGREL BISULFATE 75 MG TABLET PO SCH ×2 (09:00→10:03)
[2019-03-14] MEDS: ASPIRIN CHEWABLE 81 MG TABLET. PO SCH ×2 (09:00→10:03)
[2019-03-14] MEDS: CYANOCOBALAMIN (VITAMIN B-12) 1,000 MCG TABLET. PO SCH (09:00)
[2019-03-14] MEDS: ALLOPURINOL 100 MG TABLET. PO SCH ×2 (09:00→10:02)
[2019-03-14] MEDS: FOLIC/VIT B COMP W-C (RENAL) TABLET. PO SCH (09:00)
[2019-03-14] MEDS: CHOLECALCIFEROL (VITAMIN D3) 1,000 UNIT TABLET PO SCH (09:00)
--- NOTE | 2019-03-14 10:31 | PDOC ---
PULMONARY PROGRESS NOTES Subjective no soa Vitals Vital Signs Date Time Temp Pulse Resp B/P (MAP) Pulse Ox O2 Delivery O2 Flow Rate FiO2 03/14/19 10:00 61 20 118/60 (79) 98 Nasal Cannula 1.0 03/14/19 08:30 97.9 97.9 General: Alert, No acute distress HEENT: Other Lungs: Clear Cardiovascular: S1, S2 Abdomen: Soft, Non-tender Extremities: Other (1+edema/ stasis) Labs Laboratory Tests Test 03/13/19 00:33 03/13/19 01:23 03/13/19 02:31 03/13/19 05:30 White Blood Count 8.2 x10^3/uL (4.0-11.0) Red Blood Count 3.23 x10^6/uL (4.30-5.70) Hemoglobin 8.8 g/dL (13.0-17.5) Hematocrit 28.4 % (39.0-53.0) Mean Corpuscular Volume 88 fL (79-100) Mean Corpuscular Hemoglobin 27 pg (25-35) Mean Corpuscular Hemoglobin Concent 31 g/dL (31-37) Red Cell Distribution Width 19.3 % (11.5-14.5) Platelet Count 221 x10^3/uL (140-400) Neutrophils (%) (Auto) 69 % (31-73) Lymphocytes (%) (Auto) 17 % (24-48) Monocytes (%) (Auto) 6 % (0-9) Eosinophils (%) (Auto) 7 % (0-3) Basophils (%) (Auto) 1 % (0-3) Neutrophils # (Auto) 5.7 x10^3uL (1.8-7.7) Lymphocytes # (Auto) 1.4 x10^3/uL (1.0-4.8) Monocytes # (Auto) 0.5 x10^3/uL (0.0-1.1) Eosinophils # (Auto) 0.6 x10^3/uL (0.0-0.7) Basophils # (Auto) 0.1 x10^3/uL (0.0-0.2) Sodium Level 139 mmol/L (136-145) Potassium Level 3.6 mmol/L (3.5-5.1) Chloride Level 97 mmol/L (98-107) Carbon Dioxide Level 32 mmol/L (21-32) Anion Gap 10 (6-14) Blood Urea Nitrogen 71 mg/dL (8-26) Creatinine 5.7 mg/dL (0.7-1.3) Estimated GFR (Cockcroft-Gault) 11.7 BUN/Creatinine Ratio 12 (6-20) Glucose Level 185 mg/dL (70-99) Calcium Level 8.9 mg/dL (8.5-10.1) Total Bilirubin 0.5 mg/dL (0.2-1.0) Aspartate Amino Transf (AST/SGOT) 26 U/L (15-37) Alanine Aminotransferase (ALT/SGPT) 24 U/L (16-63) Alkaline Phosphatase 182 U/L (46-116) Troponin I Quantitative 0.096 ng/mL (0.000-0.055) EP-Ldl-H-Type Natriuretic Peptide 12652 pg/mL (0-449) Total Protein 6.9 g/dL (6.4-8.2) Albumin 2.8 g/dL (3.4-5.0) Albumin/Globulin Ratio 0.7 (1.0-1.7) O2 Saturation 99 % (92-99) Arterial Blood pH 7.43 (7.35-7.45) Arterial Blood pCO2 at Patient Temp 50 mmHg (35-46) Arterial Blood pO2 at Patient Temp 149 mmHg (65-108) Arterial Blood HCO3 33 mmol/L (21-28) Arterial Blood Base Excess 7 mmol/L (-3-3) FiO2 36 Nasal Screen MRSA (PCR) Negative (Negative) Test 03/13/19 06:20 03/13/19 11:47 03/13/19 12:00 03/13/19 18:00 Troponin I Quantitative 0.094 ng/mL (0.000-0.055) 0.101 ng/mL (0.000-0.055) Glucose (Fingerstick) 94 mg/dL (70-99) 58 mg/dL (70-99) Test 03/13/19 18:25 03/13/19 18:59 03/13/19 20:11 03/13/19 21:15 Glucose (Fingerstick) 63 mg/dL (70-99) 66 mg/dL (70-99) 169 mg/dL (70-99) Troponin I Quantitative 0.082 ng/mL (0.000-0.055) Test 03/14/19 00:04 03/14/19 05:45 03/14/19 08:12 Glucose (Fingerstick) 117 mg/dL (70-99) 77 mg/dL (70-99) White Blood Count 6.3 x10^3/uL (4.0-11.0) Red Blood Count 3.59 x10^6/uL (4.30-5.70) Hemoglobin 10.0 g/dL (13.0-17.5) Hematocrit 32.9 % (39.0-53.0) Mean Corpuscular Volume 92 fL (79-100) Mean Corpuscular Hemoglobin 28 pg (25-35) Mean Corpuscular Hemoglobin Concent 30 g/dL (31-37) Red Cell Distribution Width 19.1 % (11.5-14.5) Platelet Count 185 x10^3/uL (140-400) Neutrophils (%) (Auto) 63 % (31-73) Lymphocytes (%) (Auto) 20 % (24-48) Monocytes (%) (Auto) 8 % (0-9) Eosinophils (%) (Auto) 8 % (0-3) Basophils (%) (Auto) 1 % (0-3) Neutrophils # (Auto) 3.9 x10^3uL (1.8-7.7) Lymphocytes # (Auto) 1.3 x10^3/uL (1.0-4.8) Monocytes # (Auto) 0.5 x10^3/uL (0.0-1.1) Eosinophils # (Auto) 0.5 x10^3/uL (0.0-0.7) Basophils # (Auto) 0.1 x10^3/uL (0.0-0.2) Sodium Level 138 mmol/L (136-145) Potassium Level 4.6 mmol/L (3.5-5.1) Chloride Level 99 mmol/L (98-107) Carbon Dioxide Level 30 mmol/L (21-32) Anion Gap 9 (6-14) Blood Urea Nitrogen 38 mg/dL (8-26) Creatinine 4.2 mg/dL (0.7-1.3) Estimated GFR (Cockcroft-Gault) 16.7 BUN/Creatinine Ratio 9 (6-20) Glucose Level 102 mg/dL (70-99) Calcium Level 8.9 mg/dL (8.5-10.1) Total Bilirubin 0.7 mg/dL (0.2-1.0) Aspartate Amino Transf (AST/SGOT) 32 U/L (15-37) Alanine Aminotransferase (ALT/SGPT) 22 U/L (16-63) Alkaline Phosphatase 158 U/L (46-116) Total Protein 7.2 g/dL (6.4-8.2) Albumin 2.8 g/dL (3.4-5.0) Albumin/Globulin Ratio 0.6 (1.0-1.7) Laboratory Tests Test 03/13/19 11:47 03/13/19 12:00 03/13/19 18:00 03/13/19 18:25 Glucose (Fingerstick) 94 mg/dL (70-99) 58 mg/dL (70-99) 63 mg/dL (70-99) Troponin I Quantitative 0.101 ng/mL (0.000-0.055) Test 03/13/19 18:59 03/13/19 20:11 03/13/19 21:15 03/14/19 00:04 Glucose (Fingerstick) 66 mg/dL (70-99) 169 mg/dL (70-99) 117 mg/dL (70-99) Troponin I Quantitative 0.082 ng/mL (0.000-0.055) Test 03/14/19 05:45 03/14/19 08:12 White Blood Count 6.3 x10^3/uL (4.0-11.0) Red Blood Count 3.59 x10^6/uL (4.30-5.70) Hemoglobin 10.0 g/dL (13.0-17.5) Hematocrit 32.9 % (39.0-53.0) Mean Corpuscular Volume 92 fL (79-100) Mean Corpuscular Hemoglobin 28 pg (25-35) Mean Corpuscular Hemoglobin Concent 30 g/dL (31-37) Red Cell Distribution Width 19.1 % (11.5-14.5) Platelet Count 185 x10^3/uL (140-400) Neutrophils (%) (Auto) 63 % (31-73) Lymphocytes (%) (Auto) 20 % (24-48) Monocytes (%) (Auto) 8 % (0-9) Eosinophils (%) (Auto) 8 % (0-3) Basophils (%) (Auto) 1 % (0-3) Neutrophils # (Auto) 3.9 x10^3uL (1.8-7.7) Lymphocytes # (Auto) 1.3 x10^3/uL (1.0-4.8) Monocytes # (Auto) 0.5 x10^3/uL (0.0-1.1) Eosinophils # (Auto) 0.5 x10^3/uL (0.0-0.7) Basophils # (Auto) 0.1 x10^3/uL (0.0-0.2) Sodium Level 138 mmol/L (136-145) Potassium Level 4.6 mmol/L (3.5-5.1) Chloride Level 99 mmol/L (98-107) Carbon Dioxide Level 30 mmol/L (21-32) Anion Gap 9 (6-14) Blood Urea Nitrogen 38 mg/dL (8-26) Creatinine 4.2 mg/dL (0.7-1.3) Estimated GFR (Cockcroft-Gault) 16.7 BUN/Creatinine Ratio 9 (6-20) Glucose Level 102 mg/dL (70-99) Calcium Level 8.9 mg/dL (8.5-10.1) Total Bilirubin 0.7 mg/dL (0.2-1.0) Aspartate Amino Transf (AST/SGOT) 32 U/L (15-37) Alanine Aminotransferase (ALT/SGPT) 22 U/L (16-63) Alkaline Phosphatase 158 U/L (46-116) Total Protein 7.2 g/dL (6.4-8.2) Albumin 2.8 g/dL (3.4-5.0) Albumin/Globulin Ratio 0.6 (1.0-1.7) Glucose (Fingerstick) 77 mg/dL (70-99) Medications Active Scripts Medications Dose Route/Sig Max Daily Dose Days Date Category Dose Instructions Duoneb 0.5-3(2.5) Mg/3 Ml (Albuterol/Ipratropium) 3 Ml Ampul.neb 3 Ml NEB PRN Q4HRS PRN 03/13/19 Reported Senna-Docusate Sodium Tablet (Sennosides/Docusate Sodium) 1 Each Tablet 2 Each PO PRN QHS PRN 03/13/19 Reported Mucinex Dm Er 600-30 Mg Tablet (Guaifenesin/Dextromethorphan) 1 Each Tab.er.12h 1 Tab PO PRN Q12HRS 03/13/19 Reported Milk Of Magnesia (Magnesium Hydroxide) 400 Mg/5 Ml Oral.susp 400 Mg PO PRN DAILY PRN 03/13/19 Reported Lac-Hydrin Five (Ammonium Lactate) 226 Gm Lotion 226 Gm TP BID 03/13/19 Reported Dulcolax (Bisacodyl) 10 Mg Supp.rect 10 Mg RC PRN DAILY PRN 03/13/19 Reported Benadryl Allergy (Diphenhydramine Hcl) 12.5 Mg/5 Ml Liquid 25 Mg PO PRN Q6HRS PRN 03/13/19 Reported Metoclopramide Hcl 5 Mg Tablet 5 Mg PO TIDACHC 01/05/19 Rx Ondansetron Odt (Ondansetron) 4 Mg Tab.rapdis 4 Mg PO TIDAC 01/05/19 Rx Tylenol (Acetaminophen) 325 Mg Tablet 325 Mg PO QID 30 01/05/19 Rx Vitamin B-12 (Cyanocobalamin (Vitamin B-12)) 1,000 Mcg Tablet 1 Tab PO DAILY 11/24/18 Reported Allopurinol 100 Mg Tablet 1 Tab PO DAILY 11/24/18 Reported Renal Caps Softgel (Folic Acid/Vitamin B Comp W-C) 1 Mg Capsule 1 Cap PO DAILY 11/24/18 Reported Acidophilus Lactobacilli (Lactobacillus Acidophilus) 1 Each Capsule 1 Each PO BID 11/24/18 Reported Protonix (Pantoprazole Sodium) 20 Mg Tablet.dr 40 Mg PO DAILY 11/24/18 Reported Renvela (Sevelamer Carbonate) 800 Mg Tablet 800 Mg PO TIDWMEALS 11/24/18 Reported Tylenol (Acetaminophen) 325 Mg Tablet 1 Tab PO PRN Q4HRS 11/24/18 Reported Aspirin 81 Mg Tab.chew 81 Mg PO DAILY 11/24/18 Reported Lipitor (Atorvastatin Calcium) 40 Mg Tablet 40 Mg PO HS 11/24/18 Reported Clopidogrel (Clopidogrel Bisulfate) 75 Mg Tablet 75 Mg PO DAILY 11/24/18 Reported Humalog (Insulin Lispro) 100 Unit/1 Ml Insuln.pen 0 Units SQ TIDWMEALS 30 11/11/18 Rx BG 150-199= 1 units 200-299= 2 units 300-399= 4 units 400-499= 6 units ac tid sliding scale Vitamin D-3 (Cholecalciferol (Vitamin D3)) 2,000 Unit Capsule 1,000 Unit PO DAILY 09/13/17 Reported Comments IMPRESSION: 1. Moderate cardiomegaly with extensive coronary artery calcifications. 2. Mediastinal lymph nodes of borderline size. 3. Small right pleural effusion. 4. Mild bilateral dependent atelectasis and/or edema. 5. Small nonspecific left basilar pulmonary nodule. CT follow-up may be prudent to exclude a neoplastic etiology. 6. Cholelithiasis. Impression . 1. Acute hypoxic respiratory failure, likely related to mild congestive heart failure, although not well seen on chest x-ray. 2. Chronic hypercapnia, likely related to obesity hypoventilation syndrome. Denies significant tobacco history. ABG shows compensated respiratory acidosis. 3. End-stage renal disease, on hemodialysis. Plan . 1. Discussed with RN continue with hemodialysis with ultrafiltration. 2. CT post-hemodialysis reviewed, no obvious CHF, Tiny 6 mm LLL nodule. D/W DR TIDWELL, Rec ct chest in 6 months 3. Wean oxygen off. 4. Minimize the use of narcotics. 5. Continue DuoNebs. 6. Deep venous thrombosis prophylaxis. 7. Discussed with Renal. We will follow along with you. transfer to floor YARELIS COWAN MD Mar 14, 2019 10:31
--- NOTE | 2019-03-14 10:56 | PDOC ---
PROGRESS NOTES Subjective Subjective feels okay. discussed with nurse and ST. will have a video swallow.bilateral LE venous doppler neg for dvt. ct chest with LLL lung nodule. lab reviewed. ct head . atrophy and sphenoid sinus opacification and possible mass Objective Objective Vital Signs Date Time Temp Pulse Resp B/P (MAP) Pulse Ox O2 Delivery O2 Flow Rate FiO2 03/14/19 10:00 61 20 118/60 (79) 98 Nasal Cannula 1.0 03/14/19 08:30 97.9 97.9 Intake and Output 03/14/19 06:59 Intake Total 100 ml Output Total 0 ml Balance 100 ml Intake Oral 100 ml Output Urine Total 0 ml # Voids 1 Physical Exam Abdomen: Soft Heart: Regular rate, Normal S1, Normal S2 Extremities: No edema General: Alert HEENT: Atraumatic Lungs: Clear to auscultation Neuro: Normal speech Psych/Mental Status: Mental status NL Skin: No rashes, Other (wound vac right foot. amputatiion toes right foot) Assessment Assessment Problems1. Acute hypoxic and hypercarbic respiratory failure. The etiology of this is unclear. suspect acute on chronic diastolic chf 2. Obstructive sleep apnea. 3. Chronic right foot wound. wound vac applied 4. End-stage renal disease, on hemodialysis. 5. Diabetes mellitus type 2. 6. Peripheral arterial disease. 7. Anemia of chronic kidney disease. 8. Hyperlipidemia. 9. Morbid obesity. 10. Severe protein-calorie malnutrition. opacification of sphenoid sinus Medical Problems: (1) End stage heart failure Status: Acute Plan Plan of Care transfer to monitor unit on floor video swallow per ST hemodialysis tomorrow continue sq heparin wound care consult ENT Comment Review of Relevant I have reviewed the following items simeon (where applicable) has been applied. Labs Laboratory Tests Test 03/13/19 00:33 03/13/19 01:23 03/13/19 02:31 03/13/19 05:30 White Blood Count 8.2 x10^3/uL (4.0-11.0) Red Blood Count 3.23 x10^6/uL (4.30-5.70) Hemoglobin 8.8 g/dL (13.0-17.5) Hematocrit 28.4 % (39.0-53.0) Mean Corpuscular Volume 88 fL (79-100) Mean Corpuscular Hemoglobin 27 pg (25-35) Mean Corpuscular Hemoglobin Concent 31 g/dL (31-37) Red Cell Distribution Width 19.3 % (11.5-14.5) Platelet Count 221 x10^3/uL (140-400) Neutrophils (%) (Auto) 69 % (31-73) Lymphocytes (%) (Auto) 17 % (24-48) Monocytes (%) (Auto) 6 % (0-9) Eosinophils (%) (Auto) 7 % (0-3) Basophils (%) (Auto) 1 % (0-3) Neutrophils # (Auto) 5.7 x10^3uL (1.8-7.7) Lymphocytes # (Auto) 1.4 x10^3/uL (1.0-4.8) Monocytes # (Auto) 0.5 x10^3/uL (0.0-1.1) Eosinophils # (Auto) 0.6 x10^3/uL (0.0-0.7) Basophils # (Auto) 0.1 x10^3/uL (0.0-0.2) Sodium Level 139 mmol/L (136-145) Potassium Level 3.6 mmol/L (3.5-5.1) Chloride Level 97 mmol/L (98-107) Carbon Dioxide Level 32 mmol/L (21-32) Anion Gap 10 (6-14) Blood Urea Nitrogen 71 mg/dL (8-26) Creatinine 5.7 mg/dL (0.7-1.3) Estimated GFR (Cockcroft-Gault) 11.7 BUN/Creatinine Ratio 12 (6-20) Glucose Level 185 mg/dL (70-99) Calcium Level 8.9 mg/dL (8.5-10.1) Total Bilirubin 0.5 mg/dL (0.2-1.0) Aspartate Amino Transf (AST/SGOT) 26 U/L (15-37) Alanine Aminotransferase (ALT/SGPT) 24 U/L (16-63) Alkaline Phosphatase 182 U/L (46-116) Troponin I Quantitative 0.096 ng/mL (0.000-0.055) BQ-Xsu-B-Type Natriuretic Peptide 23626 pg/mL (0-449) Total Protein 6.9 g/dL (6.4-8.2) Albumin 2.8 g/dL (3.4-5.0) Albumin/Globulin Ratio 0.7 (1.0-1.7) O2 Saturation 99 % (92-99) Arterial Blood pH 7.43 (7.35-7.45) Arterial Blood pCO2 at Patient Temp 50 mmHg (35-46) Arterial Blood pO2 at Patient Temp 149 mmHg (65-108) Arterial Blood HCO3 33 mmol/L (21-28) Arterial Blood Base Excess 7 mmol/L (-3-3) FiO2 36 Nasal Screen MRSA (PCR) Negative (Negative) Test 03/13/19 06:20 03/13/19 11:47 03/13/19 12:00 03/13/19 18:00 Troponin I Quantitative 0.094 ng/mL (0.000-0.055) 0.101 ng/mL (0.000-0.055) Glucose (Fingerstick) 94 mg/dL (70-99) 58 mg/dL (70-99) Test 03/13/19 18:25 03/13/19 18:59 03/13/19 20:11 03/13/19 21:15 Glucose (Fingerstick) 63 mg/dL (70-99) 66 mg/dL (70-99) 169 mg/dL (70-99) Troponin I Quantitative 0.082 ng/mL (0.000-0.055) Test 03/14/19 00:04 03/14/19 05:45 03/14/19 08:12 Glucose (Fingerstick) 117 mg/dL (70-99) 77 mg/dL (70-99) White Blood Count 6.3 x10^3/uL (4.0-11.0) Red Blood Count 3.59 x10^6/uL (4.30-5.70) Hemoglobin 10.0 g/dL (13.0-17.5) Hematocrit 32.9 % (39.0-53.0) Mean Corpuscular Volume 92 fL (79-100) Mean Corpuscular Hemoglobin 28 pg (25-35) Mean Corpuscular Hemoglobin Concent 30 g/dL (31-37) Red Cell Distribution Width 19.1 % (11.5-14.5) Platelet Count 185 x10^3/uL (140-400) Neutrophils (%) (Auto) 63 % (31-73) Lymphocytes (%) (Auto) 20 % (24-48) Monocytes (%) (Auto) 8 % (0-9) Eosinophils (%) (Auto) 8 % (0-3) Basophils (%) (Auto) 1 % (0-3) Neutrophils # (Auto) 3.9 x10^3uL (1.8-7.7) Lymphocytes # (Auto) 1.3 x10^3/uL (1.0-4.8) Monocytes # (Auto) 0.5 x10^3/uL (0.0-1.1) Eosinophils # (Auto) 0.5 x10^3/uL (0.0-0.7) Basophils # (Auto) 0.1 x10^3/uL (0.0-0.2) Sodium Level 138 mmol/L (136-145) Potassium Level 4.6 mmol/L (3.5-5.1) Chloride Level 99 mmol/L (98-107) Carbon Dioxide Level 30 mmol/L (21-32) Anion Gap 9 (6-14) Blood Urea Nitrogen 38 mg/dL (8-26) Creatinine 4.2 mg/dL (0.7-1.3) Estimated GFR (Cockcroft-Gault) 16.7 BUN/Creatinine Ratio 9 (6-20) Glucose Level 102 mg/dL (70-99) Calcium Level 8.9 mg/dL (8.5-10.1) Total Bilirubin 0.7 mg/dL (0.2-1.0) Aspartate Amino Transf (AST/SGOT) 32 U/L (15-37) Alanine Aminotransferase (ALT/SGPT) 22 U/L (16-63) Alkaline Phosphatase 158 U/L (46-116) Total Protein 7.2 g/dL (6.4-8.2) Albumin 2.8 g/dL (3.4-5.0) Albumin/Globulin Ratio 0.6 (1.0-1.7) Laboratory Tests Test 03/13/19 11:47 03/13/19 12:00 03/13/19 18:00 03/13/19 18:25 Glucose (Fingerstick) 94 mg/dL (70-99) 58 mg/dL (70-99) 63 mg/dL (70-99) Troponin I Quantitative 0.101 ng/mL (0.000-0.055) Test 03/13/19 18:59 03/13/19 20:11 03/13/19 21:15 03/14/19 00:04 Glucose (Fingerstick) 66 mg/dL (70-99) 169 mg/dL (70-99) 117 mg/dL (70-99) Troponin I Quantitative 0.082 ng/mL (0.000-0.055) Test 03/14/19 05:45 03/14/19 08:12 White Blood Count 6.3 x10^3/uL (4.0-11.0) Red Blood Count 3.59 x10^6/uL (4.30-5.70) Hemoglobin 10.0 g/dL (13.0-17.5) Hematocrit 32.9 % (39.0-53.0) Mean Corpuscular Volume 92 fL (79-100) Mean Corpuscular Hemoglobin 28 pg (25-35) Mean Corpuscular Hemoglobin Concent 30 g/dL (31-37) Red Cell Distribution Width 19.1 % (11.5-14.5) Platelet Count 185 x10^3/uL (140-400) Neutrophils (%) (Auto) 63 % (31-73) Lymphocytes (%) (Auto) 20 % (24-48) Monocytes (%) (Auto) 8 % (0-9) Eosinophils (%) (Auto) 8 % (0-3) Basophils (%) (Auto) 1 % (0-3) Neutrophils # (Auto) 3.9 x10^3uL (1.8-7.7) Lymphocytes # (Auto) 1.3 x10^3/uL (1.0-4.8) Monocytes # (Auto) 0.5 x10^3/uL (0.0-1.1) Eosinophils # (Auto) 0.5 x10^3/uL (0.0-0.7) Basophils # (Auto) 0.1 x10^3/uL (0.0-0.2) Sodium Level 138 mmol/L (136-145) Potassium Level 4.6 mmol/L (3.5-5.1) Chloride Level 99 mmol/L (98-107) Carbon Dioxide Level 30 mmol/L (21-32) Anion Gap 9 (6-14) Blood Urea Nitrogen 38 mg/dL (8-26) Creatinine 4.2 mg/dL (0.7-1.3) Estimated GFR (Cockcroft-Gault) 16.7 BUN/Creatinine Ratio 9 (6-20) Glucose Level 102 mg/dL (70-99) Calcium Level 8.9 mg/dL (8.5-10.1) Total Bilirubin 0.7 mg/dL (0.2-1.0) Aspartate Amino Transf (AST/SGOT) 32 U/L (15-37) Alanine Aminotransferase (ALT/SGPT) 22 U/L (16-63) Alkaline Phosphatase 158 U/L (46-116) Total Protein 7.2 g/dL (6.4-8.2) Albumin 2.8 g/dL (3.4-5.0) Albumin/Globulin Ratio 0.6 (1.0-1.7) Glucose (Fingerstick) 77 mg/dL (70-99) Medications Current Medications Furosemide (Lasix) 40 mg 1X ONCE IVP Last administered on 03/13/19 02:56; Start 03/13/19 at 03:00; Stop 03/13/19 at 03:01; Status DC Albuterol/ Ipratropium (Duoneb) 3 ml RTQID NEB Last administered on 03/14/19 07:37; Start 03/13/19 at 08:00; Stop 03/14/19 at 07:59; Status DC Allopurinol (Zyloprim) 100 mg DAILY PO Last administered on 03/13/19 08:54; Start 03/13/19 at 09:00 Aspirin (Children'S Aspirin) 81 mg DAILY PO Last administered on 03/13/19 08: 54; Start 03/13/19 at 09:00 Atorvastatin Calcium (Lipitor) 40 mg HS PO Last administered on 03/14/19at 01:45 ; Start 03/13/19 at 21:00 Clopidogrel Bisulfate (Plavix) 75 mg DAILY PO Last administered on 03/13/19at 08 :54; Start 03/13/19 at 09:00 Cyanocobalamin (Vitamin B-12) 1,000 mcg DAILY PO Last administered on at 08:54; Start 03/13/19 at 09:00 Guaifenesin (MUCINEX ER with DM) 1 tab PRN Q12HRS PRN PO COUGH; Start 03/13/19 at 07:30 Ondansetron HCl (Zofran Odt) 4 mg TIDAC PO Last administered on 03/13/19at 08:54 ; Start 03/13/19 at 07:30; Stop 03/13/19 at 10:41; Status DC Vitamin D (Vitamin D3) 1,000 unit DAILY PO Last administered on 03/13/19at 08:54 ; Start 03/13/19 at 09:00 Vitamin B Complex/ Vitamin C (Krista-Beatriz) 1 tab DAILY PO Last administered on at 08:54; Start 03/13/19 at 09:00 Lactobacillus Rhamnosus (Culturelle) 1 cap BID PO Last administered on at 01:45; Start 03/13/19 at 09:00 Pantoprazole Sodium (Protonix) 40 mg DAILYAC PO Last administered on 03/14/19at 07:55; Start 03/13/19 at 07:30 Sodium Chloride 1,000 ml @ 1,000 mls/hr Q1H PRN IV hypotension; Start 03/13/19 at 08:14; Stop 03/13/19 at 14:13; Status DC Diphenhydramine HCl (Benadryl) 25 mg 1X PRN PRN IV ITCHING; Start 03/13/19 at 08:15; Stop 03/14/19 at 08:14; Status DC Diphenhydramine HCl (Benadryl) 25 mg 1X PRN PRN IV ITCHING; Start 03/13/19 at 08:15; Stop 03/14/19 at 08:14; Status DC Sodium Chloride 1,000 ml @ 400 mls/hr Q2H30M PRN IV PATENCY; Start 03/13/19 at 08:14; Stop 03/13/19 at 20:13; Status DC Info (PHARMACY MONITORING -- do not chart) 1 each PRN DAILY PRN MC SEE COMMENTS ; Start 03/13/19 at 08:15 Ondansetron HCl (Zofran Odt) 4 mg Q6HRS PRN PO NAUSEA/VOMITING; Start 03/13/19 at 10:45 Insulin Human Lispro (HumaLOG) 0-6 UNITS BG 300-39... TIDWMEALS SQ ; Start 03/13 at 12:00 Acetaminophen (Tylenol) 650 mg PRN Q6HRS PRN PO MILD PAIN / TEMP; Start at 10:30 Magnesium Hydroxide (Milk Of Magnesia) 2,400 mg PRN DAILY PRN PO CONSTIPATION; Start 03/13/19 at 10:30 Darbepoetin Reinaldo (Aranesp) 60 mcg WEEKLYHS SQ Last administered on 03/14/19at 01 :44; Start 03/13/19 at 21:00 Heparin Sodium (Porcine) (Heparin Sodium) 5,000 unit Q8HRS SQ Last administered on 03/14/19at 05:56; Start 03/13/19 at 14:00 Dextrose (Dextrose 50%-Water Syringe) 25 gm STK-MED ONCE IV ; Start 03/13/19 at 18:01; Stop 03/13/19 at 18:02; Status DC Glucose (Insta-Glucose) 15 gm STK-MED ONCE .ROUTE ; Start 03/13/19 at 18:05; Stop 03/13/19 at 18:06; Status DC Dextrose (Dextrose 50%-Water Syringe) 25 gm 1X ONCE IV ; Start 03/13/19 at 18: 15; Stop 03/13/19 at 18:16; Status DC Glucose (Insta-Glucose) 15 gm 1X ONCE PO Last administered on 03/13/19at 18:12 ; Start 03/13/19 at 18:15; Stop 03/13/19 at 18:16; Status DC Glucose (Insta-Glucose) 15 gm PRN Q15MIN PRN PO LOW BLOOD SUGAR Last administered on 03/13/19at 18:34; Start 03/13/19 at 18:30 Dextrose (Dextrose 50%-Water Syringe) 25 gm STK-MED ONCE IV ; Start 03/13/19 at 18:00; Stop 03/14/19 at 07:40; Status DC Active Scripts Active Metoclopramide Hcl 5 Mg Tablet 5 Mg PO TIDACHC Ondansetron Odt (Ondansetron) 4 Mg Tab.rapdis 4 Mg PO TIDAC Tylenol (Acetaminophen) 325 Mg Tablet 325 Mg PO QID 30 Days Humalog (Insulin Lispro) 100 Unit/1 Ml Insuln.pen 0 Units SQ TIDWMEALS 30 Days BG 150-199= 1 units 200-299= 2 units 300-399= 4 units 400-499= 6 units ac tid sliding scale Reported Duoneb 0.5-3(2.5) Mg/3 Ml (Albuterol/Ipratropium) 3 Ml Ampul.neb 3 Ml NEB PRN Q4HRS PRN Senna-Docusate Sodium Tablet (Sennosides/Docusate Sodium) 1 Each Tablet 2 Each PO PRN QHS PRN Mucinex Dm Er 600-30 Mg Tablet (Guaifenesin/Dextromethorphan) 1 Each Tab.er.12h 1 Tab PO PRN Q12HRS Milk Of Magnesia (Magnesium Hydroxide) 400 Mg/5 Ml Oral.susp 400 Mg PO PRN DAILY PRN Lac-Hydrin Five (Ammonium Lactate) 226 Gm Lotion 226 Gm TP BID Dulcolax (Bisacodyl) 10 Mg Supp.rect 10 Mg RC PRN DAILY PRN Benadryl Allergy (Diphenhydramine Hcl) 12.5 Mg/5 Ml Liquid 25 Mg PO PRN Q6HRS PRN Vitamin B-12 (Cyanocobalamin (Vitamin B-12)) 1,000 Mcg Tablet 1 Tab PO DAILY Allopurinol 100 Mg Tablet 1 Tab PO DAILY Renal Caps Softgel (Folic Acid/Vitamin B Comp W-C) 1 Mg Capsule 1 Cap PO DAILY Acidophilus Lactobacilli (Lactobacillus Acidophilus) 1 Each Capsule 1 Each PO BID Protonix (Pantoprazole Sodium) 20 Mg Tablet.dr 40 Mg PO DAILY Renvela (Sevelamer Carbonate) 800 Mg Tablet 800 Mg PO TIDWMEALS Tylenol (Acetaminophen) 325 Mg Tablet 1 Tab PO PRN Q4HRS Aspirin 81 Mg Tab.chew 81 Mg PO DAILY Lipitor (Atorvastatin Calcium) 40 Mg Tablet 40 Mg PO HS Clopidogrel (Clopidogrel Bisulfate) 75 Mg Tablet 75 Mg PO DAILY Vitamin D-3 (Cholecalciferol (Vitamin D3)) 2,000 Unit Capsule 1,000 Unit PO DAILY Vitals/I & O Vital Sign - Last 24 Hours 03/13/19 03/13/19 03/13/19 03/13/19 11:00 12:00 12:00 12:00 Temp 98.0 98.0 Pulse 61 59 Resp 22 19 B/P (MAP) 112/69 (83) 120/61 (80) Pulse Ox 100 99 O2 Delivery Nasal Cannula Nasal Cannula Nasal Cannula O2 Flow Rate 5.0 5.0 5.0 5.0 03/13/19 03/13/19 03/13/19 03/13/19 12:56 13:00 14:00 15:00 Pulse 60 62 60 Resp 16 17 22 B/P (MAP) 121/56 (77) 111/52 (71) 103/49 (67) Pulse Ox 98 100 92 96 O2 Delivery Nasal Cannula Nasal Cannula Nasal Cannula Nasal Cannula O2 Flow Rate 5.0 5.0 5.0 5.0 03/13/19 03/13/19 03/13/19 03/13/19 16:00 16:00 16:00 16:41 Temp 97.5 97.5 Pulse 59 Resp 29 B/P (MAP) 112/62 (79) Pulse Ox 99 98 O2 Delivery Nasal Cannula Nasal Cannula Nasal Cannula O2 Flow Rate 5.0 5.0 5.0 5.0 03/13/19 03/13/19 03/13/19 03/13/19 17:00 18:00 19:00 20:00 Pulse 59 60 63 Resp 21 25 21 B/P (MAP) 108/53 (71) 100/53 (69) 101/54 (70) Pulse Ox 98 95 100 O2 Delivery Nasal Cannula Nasal Cannula Nasal Cannula O2 Flow Rate 5.0 5.0 5.0 5.0 03/13/19 03/13/19 03/13/19 03/13/19 20:00 20:00 20:04 21:00 Temp 97.9 97.9 Pulse 64 60 Resp 18 14 B/P (MAP) 100/53 (69) 100/53 (69) Pulse Ox 94 98 94 O2 Delivery Nasal Cannula Nasal Cannula Nasal Cannula BiPAP/CPAP O2 Flow Rate 5.0 5.0 5.0 03/13/19 03/13/19 03/13/19 03/14/19 21:10 23:00 23:59 00:00 Pulse 61 Resp 14 B/P (MAP) 113/58 (76) Pulse Ox 96 95 O2 Delivery BiPAP/CPAP BiPAP/CPAP Bi-pap O2 Flow Rate 5.0 03/14/19 03/14/19 03/14/19 03/14/19 00:01 00:15 01:00 02:00 Temp 98.6 98.6 Pulse 62 62 Resp 20 18 B/P (MAP) 115/60 (78) 113/58 (76) Pulse Ox 95 100 95 100 O2 Delivery BiPAP/CPAP BiPAP/CPAP BiPAP/CPAP BiPAP/CPAP 03/14/19 03/14/19 03/14/19 03/14/19 02:00 03:00 04:00 04:00 Temp 97.3 97.3 Pulse 65 65 60 Resp 27 14 20 B/P (MAP) 127/65 (85) 100/65 (77) 120/60 (80) Pulse Ox 95 95 99 O2 Delivery BiPAP/CPAP BiPAP/CPAP BiPAP/CPAP O2 Flow Rate 40.0 5.0 40.0 03/14/19 03/14/19 03/14/19 03/14/19 04:00 05:00 05:15 06:00 Pulse 61 61 Resp 21 17 B/P (MAP) 138/70 (92) 118/61 (80) Pulse Ox 100 100 100 O2 Delivery Bi-pap BiPAP/CPAP BiPAP/CPAP BiPAP/CPAP O2 Flow Rate 40.0 40.0 03/14/19 03/14/19 03/14/19 03/14/19 07:30 07:30 07:30 08:05 Pulse 61 Resp 20 B/P (MAP) 122/71 (88) Pulse Ox 100 O2 Delivery Nasal Cannula Bi-pap Nasal Cannula O2 Flow Rate 4.0 4.0 4.0 4.0 03/14/19 03/14/19 03/14/19 08:30 09:02 10:00 Temp 97.9 97.9 Pulse 62 60 61 Resp 20 18 20 B/P (MAP) 116/76 (89) 159/73 (101) 118/60 (79) Pulse Ox 100 98 O2 Delivery Nasal Cannula Nasal Cannula Nasal Cannula O2 Flow Rate 4.0 4.0 1.0 Intake and Output 03/13/19 03/13/19 03/14/19 14:59 22:59 06:59 Intake Total 50 ml 50 ml Output Total 0 ml 0 ml 0 ml Balance 50 ml 50 ml 0 ml KIMI TIDWELL MD Mar 14, 2019 10:56
[2019-03-14] MEDS ORDERED: BARIUM SULFATE 40% (APPLE) 148 GM PWD. PO ONE (11:15)
--- NOTE | 2019-03-14 12:00 | RAD ---
Video dysphasia study, 03/14/2019: History: Dysphasia The swallowing mechanism was examined fluoroscopically in the lateral projection while the patient ingested a variety of food materials mixed with barium. 4.7 minutes of fluoroscopy time was utilized. One video fluoroscopic loop was recorded by a member of the speech Department. The patient demonstrated a marked delay in passage of materials from the mouth into the hypopharynx. There was also considerable delay in initiation of pharyngeal peristalsis with pooling of materials in the vallecula and piriform sinuses. Once initiated the pharyngeal peristalsis was good with normal passage of the majority of the barium bolus through the cervical esophagus. There was very little vallecular or performed sinus residue following swallowing. When swallowing the thin liquids there was mild intermittent laryngeal penetration. Due to patient positioning the focal cords were not clearly visualized. No definite aspiration was observed. The laryngeal penetration seemed to shi when utilizing the nectar and honey thickened materials. IMPRESSION: 1. Delayed oral phase and delayed pharyngeal peristalsis. 2. Mild laryngeal penetration of the thin liquids. 3. No toro aspiration was observed, however, the vocal cord region was not clearly visualized.
--- NOTE | 2019-03-14 12:12 | PDOC ---
CARDIO Progress Notes Date and Time Date of Service 03/14/2019 Time of Evaluation 1200 Subjective Subjective: No Chest Pain, No shortness of breath, No Palpitations Vitals Vitals Vital Signs Date Time Temp Pulse Resp B/P (MAP) Pulse Ox O2 Delivery O2 Flow Rate FiO2 03/14/19 10:00 61 20 118/60 (79) 98 Nasal Cannula 1.0 03/14/19 08:30 97.9 97.9 Weight Weight [ ] Input and Output Intake and Output Intake and Output 03/14/19 06:59 Intake Total 100 ml Output Total 0 ml Balance 100 ml Intake Oral 100 ml Output Urine Total 0 ml # Voids 1 Laboratory Labs Laboratory Tests Test 03/13/19 18:00 03/13/19 18:25 03/13/19 18:59 03/13/19 20:11 Glucose (Fingerstick) 58 mg/dL (70-99) 63 mg/dL (70-99) 66 mg/dL (70-99) 169 mg/dL (70-99) Test 03/13/19 21:15 03/14/19 00:04 03/14/19 05:45 03/14/19 08:12 Troponin I Quantitative 0.082 ng/mL (0.000-0.055) Glucose (Fingerstick) 117 mg/dL (70-99) 77 mg/dL (70-99) White Blood Count 6.3 x10^3/uL (4.0-11.0) Red Blood Count 3.59 x10^6/uL (4.30-5.70) Hemoglobin 10.0 g/dL (13.0-17.5) Hematocrit 32.9 % (39.0-53.0) Mean Corpuscular Volume 92 fL (79-100) Mean Corpuscular Hemoglobin 28 pg (25-35) Mean Corpuscular Hemoglobin Concent 30 g/dL (31-37) Red Cell Distribution Width 19.1 % (11.5-14.5) Platelet Count 185 x10^3/uL (140-400) Neutrophils (%) (Auto) 63 % (31-73) Lymphocytes (%) (Auto) 20 % (24-48) Monocytes (%) (Auto) 8 % (0-9) Eosinophils (%) (Auto) 8 % (0-3) Basophils (%) (Auto) 1 % (0-3) Neutrophils # (Auto) 3.9 x10^3uL (1.8-7.7) Lymphocytes # (Auto) 1.3 x10^3/uL (1.0-4.8) Monocytes # (Auto) 0.5 x10^3/uL (0.0-1.1) Eosinophils # (Auto) 0.5 x10^3/uL (0.0-0.7) Basophils # (Auto) 0.1 x10^3/uL (0.0-0.2) Sodium Level 138 mmol/L (136-145) Potassium Level 4.6 mmol/L (3.5-5.1) Chloride Level 99 mmol/L (98-107) Carbon Dioxide Level 30 mmol/L (21-32) Anion Gap 9 (6-14) Blood Urea Nitrogen 38 mg/dL (8-26) Creatinine 4.2 mg/dL (0.7-1.3) Estimated GFR (Cockcroft-Gault) 16.7 BUN/Creatinine Ratio 9 (6-20) Glucose Level 102 mg/dL (70-99) Calcium Level 8.9 mg/dL (8.5-10.1) Total Bilirubin 0.7 mg/dL (0.2-1.0) Aspartate Amino Transf (AST/SGOT) 32 U/L (15-37) Alanine Aminotransferase (ALT/SGPT) 22 U/L (16-63) Alkaline Phosphatase 158 U/L (46-116) Total Protein 7.2 g/dL (6.4-8.2) Albumin 2.8 g/dL (3.4-5.0) Albumin/Globulin Ratio 0.6 (1.0-1.7) Physical Exam HEENT: Neck Supple W Full Motion Chest: Symmetric LUNGS: Other (diminisehd bases) Heart: irregularly irregular (AFIB) Abdomen: Soft N/T Extremities: Other (1+ bilateral LE pitting edema) Neurology: alert, other (pleasantly confused) Assessment Assessment 1. Acute respiratory failure; improved, off BiPAP 2. Mild acute on chronic diastolic CHF: compensated 3. Persistent AFIB; rate controlled 4. Hypertension; controlled 5. CAD; s/p PCI/stent in the past. clinically stable. CP free. 6. PAD with chronic right foot wound. s/p recent PURSE MAKER/stent. Scheduled for procedure at later this week 7. Mild troponin elevation. Most probably type II, demand ischemia. peaked at 0.1 8. H/o CVA with left side hemiparesis 9. Morbid obesity, MOUNIKA; CPAP at home 10. ESRD on HD 11. SSS s/p PPM ([employer]) stable 12. Diabetes, II/HLP Recommendations Continue with ASA, Plavix, statin. follow up with cardiology as scheduled Fluid offloading/management via HD as per nephrology. Follow pulm recommendations Not a candidate for previous coumadin due to past bleed with psoas hematoma. ASA for stroke prevention ROBBIE TORRES APRN Mar 14, 2019 12:12
--- NOTE | 2019-03-14 13:16 | PDOC2 ---
CONSULT Date of Consult Date of Consult DATE: 03/14/19 TIME: 13:05 Reason for Consult Reason for Consult: right sphenoid sinus infection/mass Identification/Chief Complaint Chief Complaint right sphenoid sinus infection/mass History of Present Illness Reason for Visit: 78 year old male was admitted to hospital for ongoing evaluation of shortness of breath. Incidental finding of right sphenoid opacification, possible mass on CT head imaging. Patient has multiple co-morbidities and is on anticoagulation. Patient denies any sinus headaches, pressure, drainage. He denies any epistaxis. Past Medical History Cardiovascular: AFIB, HTN, Other Pulmonary: Other CENTRAL NERVOUS SYSTEM: Periperal neuropathy GI: GERD, Other Heme/Onc: No pertinent hx Hepatobiliary: No pertinent hx Psych: No pertinent hx Rheumatologic: No pertinent hx Infectious disease: No pertinent hx Renal/: Other Endocrine: Diabetes Past Surgical History Past Surgical History: Pacemaker, Cataract Removal, Other Family History Family History: Coronary Artery Disease Social History ALCOHOL: none Drugs: None Lives: Alone Current Problem List Problem List Problems Medical Problems: (1) End stage heart failure Status: Acute Current Medications Current Medications Current Medications Furosemide (Lasix) 40 mg 1X ONCE IVP Last administered on 03/13/19 02:56; Start 03/13/19 at 03:00; Stop 03/13/19 at 03:01; Status DC Albuterol/ Ipratropium (Duoneb) 3 ml RTQID NEB Last administered on 03/14/19at 07:37; Start 03/13/19 at 08:00; Stop 03/14/19 at 07:59; Status DC Allopurinol (Zyloprim) 100 mg DAILY PO Last administered on 03/13/19at 08:54; Start 03/13/19 at 09:00 Aspirin (Children'S Aspirin) 81 mg DAILY PO Last administered on 03/13/19at 08: 54; Start 03/13/19 at 09:00 Atorvastatin Calcium (Lipitor) 40 mg HS PO Last administered on 03/14/19at 01:45 ; Start 03/13/19 at 21:00 Clopidogrel Bisulfate (Plavix) 75 mg DAILY PO Last administered on 03/13/19at 08 :54; Start 03/13/19 at 09:00 Cyanocobalamin (Vitamin B-12) 1,000 mcg DAILY PO Last administered on at 08:54; Start 03/13/19 at 09:00 Guaifenesin (MUCINEX ER with DM) 1 tab PRN Q12HRS PRN PO COUGH; Start 03/13/19 at 07:30 Ondansetron HCl (Zofran Odt) 4 mg TIDAC PO Last administered on 03/13/19at 08:54 ; Start 03/13/19 at 07:30; Stop 03/13/19 at 10:41; Status DC Vitamin D (Vitamin D3) 1,000 unit DAILY PO Last administered on 03/13/19at 08:54 ; Start 03/13/19 at 09:00 Vitamin B Complex/ Vitamin C (Krista-Beatriz) 1 tab DAILY PO Last administered on at 08:54; Start 03/13/19 at 09:00 Lactobacillus Rhamnosus (Culturelle) 1 cap BID PO Last administered on at 01:45; Start 03/13/19 at 09:00 Pantoprazole Sodium (Protonix) 40 mg DAILYAC PO Last administered on 03/14/19at 07:55; Start 03/13/19 at 07:30 Sodium Chloride 1,000 ml @ 1,000 mls/hr Q1H PRN IV hypotension; Start 03/13/19 at 08:14; Stop 03/13/19 at 14:13; Status DC Diphenhydramine HCl (Benadryl) 25 mg 1X PRN PRN IV ITCHING; Start 03/13/19 at 08:15; Stop 03/14/19 at 08:14; Status DC Diphenhydramine HCl (Benadryl) 25 mg 1X PRN PRN IV ITCHING; Start 03/13/19 at 08:15; Stop 03/14/19 at 08:14; Status DC Sodium Chloride 1,000 ml @ 400 mls/hr Q2H30M PRN IV PATENCY; Start 03/13/19 at 08:14; Stop 03/13/19 at 20:13; Status DC Info (PHARMACY MONITORING -- do not chart) 1 each PRN DAILY PRN MC SEE COMMENTS ; Start 03/13/19 at 08:15 Ondansetron HCl (Zofran Odt) 4 mg Q6HRS PRN PO NAUSEA/VOMITING; Start 03/13/19 at 10:45 Insulin Human Lispro (HumaLOG) 0-6 UNITS BG 300-39... TIDWMEALS SQ ; Start 03/13 at 12:00 Acetaminophen (Tylenol) 650 mg PRN Q6HRS PRN PO MILD PAIN / TEMP; Start at 10:30 Magnesium Hydroxide (Milk Of Magnesia) 2,400 mg PRN DAILY PRN PO CONSTIPATION; Start 03/13/19 at 10:30 Darbepoetin Reinaldo (Aranesp) 60 mcg WEEKLYHS SQ Last administered on 03/14/19at 01 :44; Start 03/13/19 at 21:00 Heparin Sodium (Porcine) (Heparin Sodium) 5,000 unit Q8HRS SQ Last administered on 03/14/19at 05:56; Start 03/13/19 at 14:00 Dextrose (Dextrose 50%-Water Syringe) 25 gm STK-MED ONCE IV ; Start 03/13/19 at 18:01; Stop 03/13/19 at 18:02; Status DC Glucose (Insta-Glucose) 15 gm STK-MED ONCE .ROUTE ; Start 03/13/19 at 18:05; Stop 03/13/19 at 18:06; Status DC Dextrose (Dextrose 50%-Water Syringe) 25 gm 1X ONCE IV ; Start 03/13/19 at 18: 15; Stop 03/13/19 at 18:16; Status DC Glucose (Insta-Glucose) 15 gm 1X ONCE PO Last administered on 03/13/19at 18:12 ; Start 03/13/19 at 18:15; Stop 03/13/19 at 18:16; Status DC Glucose (Insta-Glucose) 15 gm PRN Q15MIN PRN PO LOW BLOOD SUGAR Last administered on 03/13/19at 18:34; Start 03/13/19 at 18:30 Dextrose (Dextrose 50%-Water Syringe) 25 gm STK-MED ONCE IV ; Start 03/13/19 at 18:00; Stop 03/14/19 at 07:40; Status DC Barium Sulfate (Varibar Thin Liquid Apple) 148 gm 1X ONCE PO Last administered on 03/14/19at 11:55; Start 03/14/19 at 11:15; Stop 03/14/19 at 11:17 ; Status DC Active Scripts Active Metoclopramide Hcl 5 Mg Tablet 5 Mg PO TIDACHC Ondansetron Odt (Ondansetron) 4 Mg Tab.rapdis 4 Mg PO TIDAC Tylenol (Acetaminophen) 325 Mg Tablet 325 Mg PO QID 30 Days Humalog (Insulin Lispro) 100 Unit/1 Ml Insuln.pen 0 Units SQ TIDWMEALS 30 Days BG 150-199= 1 units 200-299= 2 units 300-399= 4 units 400-499= 6 units ac tid sliding scale Reported Duoneb 0.5-3(2.5) Mg/3 Ml (Albuterol/Ipratropium) 3 Ml Ampul.neb 3 Ml NEB PRN Q4HRS PRN Senna-Docusate Sodium Tablet (Sennosides/Docusate Sodium) 1 Each Tablet 2 Each PO PRN QHS PRN Mucinex Dm Er 600-30 Mg Tablet (Guaifenesin/Dextromethorphan) 1 Each Tab.er.12h 1 Tab PO PRN Q12HRS Milk Of Magnesia (Magnesium Hydroxide) 400 Mg/5 Ml Oral.susp 400 Mg PO PRN DAILY PRN Lac-Hydrin Five (Ammonium Lactate) 226 Gm Lotion 226 Gm TP BID Dulcolax (Bisacodyl) 10 Mg Supp.rect 10 Mg RC PRN DAILY PRN Benadryl Allergy (Diphenhydramine Hcl) 12.5 Mg/5 Ml Liquid 25 Mg PO PRN Q6HRS PRN Vitamin B-12 (Cyanocobalamin (Vitamin B-12)) 1,000 Mcg Tablet 1 Tab PO DAILY Allopurinol 100 Mg Tablet 1 Tab PO DAILY Renal Caps Softgel (Folic Acid/Vitamin B Comp W-C) 1 Mg Capsule 1 Cap PO DAILY Acidophilus Lactobacilli (Lactobacillus Acidophilus) 1 Each Capsule 1 Each PO BID Protonix (Pantoprazole Sodium) 20 Mg Tablet.dr 40 Mg PO DAILY Renvela (Sevelamer Carbonate) 800 Mg Tablet 800 Mg PO TIDWMEALS Tylenol (Acetaminophen) 325 Mg Tablet 1 Tab PO PRN Q4HRS Aspirin 81 Mg Tab.chew 81 Mg PO DAILY Lipitor (Atorvastatin Calcium) 40 Mg Tablet 40 Mg PO HS Clopidogrel (Clopidogrel Bisulfate) 75 Mg Tablet 75 Mg PO DAILY Vitamin D-3 (Cholecalciferol (Vitamin D3)) 2,000 Unit Capsule 1,000 Unit PO DAILY Allergies Allergies: Coded Allergies: I S O L A T I O N *CONTACT* (Verified Allergy, Unknown, 01/03/19) vre No Known Medication Allergies (Verified Allergy, Unknown, 01/03/19) Physical Exam General: Alert, Cooperative, No acute distress HEENT: Atraumatic, PERRLA, EOMI, Mucous membr. moist/pink (Oral Cavity/ Oropharynx: upper dentures, no mucosal lesions or masses. Neck: soft, NT, ND ), Other (Nose: septum relatively straight but toro crusting and irritation of bilateral nasal cavity due to oxygen nasal cannula. ) Vitals VITALS Vital Signs Date Time Temp Pulse Resp B/P (MAP) Pulse Ox O2 Delivery O2 Flow Rate FiO2 03/14/19 12:36 Nasal Cannula 4.0 03/14/19 10:00 61 20 118/60 (79) 98 03/14/19 08:30 97.9 97.9 Labs Labs Laboratory Tests Test 03/13/19 00:33 03/13/19 01:23 03/13/19 02:31 03/13/19 05:30 White Blood Count 8.2 x10^3/uL (4.0-11.0) Red Blood Count 3.23 x10^6/uL (4.30-5.70) Hemoglobin 8.8 g/dL (13.0-17.5) Hematocrit 28.4 % (39.0-53.0) Mean Corpuscular Volume 88 fL (79-100) Mean Corpuscular Hemoglobin 27 pg (25-35) Mean Corpuscular Hemoglobin Concent 31 g/dL (31-37) Red Cell Distribution Width 19.3 % (11.5-14.5) Platelet Count 221 x10^3/uL (140-400) Neutrophils (%) (Auto) 69 % (31-73) Lymphocytes (%) (Auto) 17 % (24-48) Monocytes (%) (Auto) 6 % (0-9) Eosinophils (%) (Auto) 7 % (0-3) Basophils (%) (Auto) 1 % (0-3) Neutrophils # (Auto) 5.7 x10^3uL (1.8-7.7) Lymphocytes # (Auto) 1.4 x10^3/uL (1.0-4.8) Monocytes # (Auto) 0.5 x10^3/uL (0.0-1.1) Eosinophils # (Auto) 0.6 x10^3/uL (0.0-0.7) Basophils # (Auto) 0.1 x10^3/uL (0.0-0.2) Sodium Level 139 mmol/L (136-145) Potassium Level 3.6 mmol/L (3.5-5.1) Chloride Level 97 mmol/L (98-107) Carbon Dioxide Level 32 mmol/L (21-32) Anion Gap 10 (6-14) Blood Urea Nitrogen 71 mg/dL (8-26) Creatinine 5.7 mg/dL (0.7-1.3) Estimated GFR (Cockcroft-Gault) 11.7 BUN/Creatinine Ratio 12 (6-20) Glucose Level 185 mg/dL (70-99) Calcium Level 8.9 mg/dL (8.5-10.1) Total Bilirubin 0.5 mg/dL (0.2-1.0) Aspartate Amino Transf (AST/SGOT) 26 U/L (15-37) Alanine Aminotransferase (ALT/SGPT) 24 U/L (16-63) Alkaline Phosphatase 182 U/L (46-116) Troponin I Quantitative 0.096 ng/mL (0.000-0.055) ZQ-Yyi-R-Type Natriuretic Peptide 74743 pg/mL (0-449) Total Protein 6.9 g/dL (6.4-8.2) Albumin 2.8 g/dL (3.4-5.0) Albumin/Globulin Ratio 0.7 (1.0-1.7) O2 Saturation 99 % (92-99) Arterial Blood pH 7.43 (7.35-7.45) Arterial Blood pCO2 at Patient Temp 50 mmHg (35-46) Arterial Blood pO2 at Patient Temp 149 mmHg (65-108) Arterial Blood HCO3 33 mmol/L (21-28) Arterial Blood Base Excess 7 mmol/L (-3-3) FiO2 36 Nasal Screen MRSA (PCR) Negative (Negative) Test 03/13/19 06:20 03/13/19 11:47 03/13/19 12:00 03/13/19 18:00 Troponin I Quantitative 0.094 ng/mL (0.000-0.055) 0.101 ng/mL (0.000-0.055) Glucose (Fingerstick) 94 mg/dL (70-99) 58 mg/dL (70-99) Test 03/13/19 18:25 03/13/19 18:59 03/13/19 20:11 03/13/19 21:15 Glucose (Fingerstick) 63 mg/dL (70-99) 66 mg/dL (70-99) 169 mg/dL (70-99) Troponin I Quantitative 0.082 ng/mL (0.000-0.055) Test 03/14/19 00:04 03/14/19 05:45 03/14/19 08:12 03/14/19 12:35 Glucose (Fingerstick) 117 mg/dL (70-99) 77 mg/dL (70-99) 72 mg/dL (70-99) White Blood Count 6.3 x10^3/uL (4.0-11.0) Red Blood Count 3.59 x10^6/uL (4.30-5.70) Hemoglobin 10.0 g/dL (13.0-17.5) Hematocrit 32.9 % (39.0-53.0) Mean Corpuscular Volume 92 fL (79-100) Mean Corpuscular Hemoglobin 28 pg (25-35) Mean Corpuscular Hemoglobin Concent 30 g/dL (31-37) Red Cell Distribution Width 19.1 % (11.5-14.5) Platelet Count 185 x10^3/uL (140-400) Neutrophils (%) (Auto) 63 % (31-73) Lymphocytes (%) (Auto) 20 % (24-48) Monocytes (%) (Auto) 8 % (0-9) Eosinophils (%) (Auto) 8 % (0-3) Basophils (%) (Auto) 1 % (0-3) Neutrophils # (Auto) 3.9 x10^3uL (1.8-7.7) Lymphocytes # (Auto) 1.3 x10^3/uL (1.0-4.8) Monocytes # (Auto) 0.5 x10^3/uL (0.0-1.1) Eosinophils # (Auto) 0.5 x10^3/uL (0.0-0.7) Basophils # (Auto) 0.1 x10^3/uL (0.0-0.2) Sodium Level 138 mmol/L (136-145) Potassium Level 4.6 mmol/L (3.5-5.1) Chloride Level 99 mmol/L (98-107) Carbon Dioxide Level 30 mmol/L (21-32) Anion Gap 9 (6-14) Blood Urea Nitrogen 38 mg/dL (8-26) Creatinine 4.2 mg/dL (0.7-1.3) Estimated GFR (Cockcroft-Gault) 16.7 BUN/Creatinine Ratio 9 (6-20) Glucose Level 102 mg/dL (70-99) Calcium Level 8.9 mg/dL (8.5-10.1) Total Bilirubin 0.7 mg/dL (0.2-1.0) Aspartate Amino Transf (AST/SGOT) 32 U/L (15-37) Alanine Aminotransferase (ALT/SGPT) 22 U/L (16-63) Alkaline Phosphatase 158 U/L (46-116) Total Protein 7.2 g/dL (6.4-8.2) Albumin 2.8 g/dL (3.4-5.0) Albumin/Globulin Ratio 0.6 (1.0-1.7) Laboratory Tests Test 03/13/19 18:00 03/13/19 18:25 03/13/19 18:59 03/13/19 20:11 Glucose (Fingerstick) 58 mg/dL (70-99) 63 mg/dL (70-99) 66 mg/dL (70-99) 169 mg/dL (70-99) Test 03/13/19 21:15 03/14/19 00:04 03/14/19 05:45 03/14/19 08:12 Troponin I Quantitative 0.082 ng/mL (0.000-0.055) Glucose (Fingerstick) 117 mg/dL (70-99) 77 mg/dL (70-99) White Blood Count 6.3 x10^3/uL (4.0-11.0) Red Blood Count 3.59 x10^6/uL (4.30-5.70) Hemoglobin 10.0 g/dL (13.0-17.5) Hematocrit 32.9 % (39.0-53.0) Mean Corpuscular Volume 92 fL (79-100) Mean Corpuscular Hemoglobin 28 pg (25-35) Mean Corpuscular Hemoglobin Concent 30 g/dL (31-37) Red Cell Distribution Width 19.1 % (11.5-14.5) Platelet Count 185 x10^3/uL (140-400) Neutrophils (%) (Auto) 63 % (31-73) Lymphocytes (%) (Auto) 20 % (24-48) Monocytes (%) (Auto) 8 % (0-9) Eosinophils (%) (Auto) 8 % (0-3) Basophils (%) (Auto) 1 % (0-3) Neutrophils # (Auto) 3.9 x10^3uL (1.8-7.7) Lymphocytes # (Auto) 1.3 x10^3/uL (1.0-4.8) Monocytes # (Auto) 0.5 x10^3/uL (0.0-1.1) Eosinophils # (Auto) 0.5 x10^3/uL (0.0-0.7) Basophils # (Auto) 0.1 x10^3/uL (0.0-0.2) Sodium Level 138 mmol/L (136-145) Potassium Level 4.6 mmol/L (3.5-5.1) Chloride Level 99 mmol/L (98-107) Carbon Dioxide Level 30 mmol/L (21-32) Anion Gap 9 (6-14) Blood Urea Nitrogen 38 mg/dL (8-26) Creatinine 4.2 mg/dL (0.7-1.3) Estimated GFR (Cockcroft-Gault) 16.7 BUN/Creatinine Ratio 9 (6-20) Glucose Level 102 mg/dL (70-99) Calcium Level 8.9 mg/dL (8.5-10.1) Total Bilirubin 0.7 mg/dL (0.2-1.0) Aspartate Amino Transf (AST/SGOT) 32 U/L (15-37) Alanine Aminotransferase (ALT/SGPT) 22 U/L (16-63) Alkaline Phosphatase 158 U/L (46-116) Total Protein 7.2 g/dL (6.4-8.2) Albumin 2.8 g/dL (3.4-5.0) Albumin/Globulin Ratio 0.6 (1.0-1.7) Test 03/14/19 12:35 Glucose (Fingerstick) 72 mg/dL (70-99) Images Images CT Head (03/14/19): Complete opacification of right sphenoid sinus, slight protuberance at sphenoid ostia extending into nasal cavity. Assessment/Plan Assessment/Plan Procedure Noted: Nasal Endoscopy-- Patient was not very compliant with examination as he felt was uncomfortable. Nasal cavity was anesthetized with 4 % lidocaine and Afrin mixture topically. I then used fiberoptic scope to visualize posterior nasal cavity bilaterally. No definitive mass or purulent discharge seen bilaterally. Difficult exam due to patient movement and uncomfortable. Assessment: 78 year old male with opacification of right sphenoid sinus. At ostia, possibly having obstructive lesion but only visualized on head CT. Plan. 1. Recommend mupirocin ointment to inside of nose BID along septum as severely dried/crusted from oxygen at this area. 2. Recommend further evaluation with CT sinus imaging (Order per Image Guided protocol) and MRI Brain with contrast for further evaluation. ANITA SALAZAR MD Mar 14, 2019 13:16
--- NOTE | 2019-03-14 15:35 | NUR ---
Patient on bedside commode scratched R inner thigh/groin area and was bleeding. I assessed/ cleaned area, photographed and documented under wound assessment.
[2019-03-14] MEDS ORDERED: IPRATRPIUM/ALBUTEROL 0.5/2.5MG 3 ML NEBU. NEB ONE (16:15)
[2019-03-14] MEDS: ACETAMINOPHEN 325 MG TABLET. PO PRN (20:10)
[2019-03-15] VITALS (7 sets, daily range): BP systolic 113–137; BP diastolic 51–65
[2019-03-15] MEDS: IPRATRPIUM/ALBUTEROL 0.5/2.5MG 3 ML NEBU. NEB SCH ×4 (06:10→19:19)
[2019-03-15] MEDS: HEPARIN for SUB-Q USE 5,000 UNIT/ML VIAL. SQ SCH ×3 (06:12→21:18)
[2019-03-15] MEDS ORDERED: IV NORMAL SALINE 1000ML BAG 1,000 ML IV PRN ×4 (07:34→16:00)
[2019-03-15] MEDS ORDERED: ALBUMIN HUMAN 25% 200 ML IV PRN (07:45)
[2019-03-15] MEDS ORDERED: DIALYSIS PATIENT. MC PRN ×2 (07:45)
[2019-03-15] MEDS: INSULIN LISPRO 300 UNITS/3 ML INSULN.PEN. SQ SCH ×3 (08:00→17:00)
[2019-03-15] MEDS: PANTOPRAZOLE 40 MG TABLET.DR. PO SCH (08:27)
--- NOTE | 2019-03-15 10:31 | PDOC ---
PROGRESS NOTES Subjective Subjective feels better. alert . started HTL and ground meat texture diet. lab reviewed. comfortable. on oxygen 3LNC. Objective Objective Vital Signs Date Time Temp Pulse Resp B/P (MAP) Pulse Ox O2 Delivery O2 Flow Rate FiO2 03/15/19 07:00 98.3 60 17 124/60 (81) 98 Nasal Cannula 4.0 98.3 Intake and Output 03/15/19 07:00 Intake Total 480 ml Output Total 225 ml Balance 255 ml Intake Oral 480 ml Output Urine Total 225 ml Physical Exam Abdomen: Soft, Other (obese) Heart: Regular rate, Normal S1, Normal S2 Extremities: No edema General: Alert HEENT: Atraumatic Lungs: Clear to auscultation Neuro: Normal speech Psych/Mental Status: Mental status NL Skin: No rashes, Other (wound vac right foot. amputation of all digits right foot. left great toe amputation) Assessment Assessment Problems1. Acute hypoxic and hypercarbic respiratory failure. suspect acute on chronic diastolic chf compensated 2. Obstructive sleep apnea. 3. Chronic right foot wound. wound vac applied 4. End-stage renal disease, on hemodialysis. 5. Diabetes mellitus type 2. 6. Peripheral arterial disease. 7. Anemia of chronic kidney disease. 8. Hyperlipidemia. 9. Morbid obesity. 10. Severe protein-calorie malnutrition. opacification of sphenoid sinus oropharyngeal dysphagia Medical Problems: (1) End stage heart failure Status: Acute Plan Plan of Care hemodialysis today ground meat with HTL monitor oral intake continue oxygen consider dismissal tomorrow Comment Review of Relevant I have reviewed the following items simeon (where applicable) has been applied. Labs Laboratory Tests Test 03/13/19 11:47 03/13/19 12:00 03/13/19 18:00 03/13/19 18:25 Glucose (Fingerstick) 94 mg/dL (70-99) 58 mg/dL (70-99) 63 mg/dL (70-99) Troponin I Quantitative 0.101 ng/mL (0.000-0.055) Test 03/13/19 18:59 03/13/19 20:11 03/13/19 21:15 03/14/19 00:04 Glucose (Fingerstick) 66 mg/dL (70-99) 169 mg/dL (70-99) 117 mg/dL (70-99) Troponin I Quantitative 0.082 ng/mL (0.000-0.055) Test 03/14/19 05:45 03/14/19 08:12 03/14/19 12:35 03/14/19 16:27 White Blood Count 6.3 x10^3/uL (4.0-11.0) Red Blood Count 3.59 x10^6/uL (4.30-5.70) Hemoglobin 10.0 g/dL (13.0-17.5) Hematocrit 32.9 % (39.0-53.0) Mean Corpuscular Volume 92 fL (79-100) Mean Corpuscular Hemoglobin 28 pg (25-35) Mean Corpuscular Hemoglobin Concent 30 g/dL (31-37) Red Cell Distribution Width 19.1 % (11.5-14.5) Platelet Count 185 x10^3/uL (140-400) Neutrophils (%) (Auto) 63 % (31-73) Lymphocytes (%) (Auto) 20 % (24-48) Monocytes (%) (Auto) 8 % (0-9) Eosinophils (%) (Auto) 8 % (0-3) Basophils (%) (Auto) 1 % (0-3) Neutrophils # (Auto) 3.9 x10^3uL (1.8-7.7) Lymphocytes # (Auto) 1.3 x10^3/uL (1.0-4.8) Monocytes # (Auto) 0.5 x10^3/uL (0.0-1.1) Eosinophils # (Auto) 0.5 x10^3/uL (0.0-0.7) Basophils # (Auto) 0.1 x10^3/uL (0.0-0.2) Sodium Level 138 mmol/L (136-145) Potassium Level 4.6 mmol/L (3.5-5.1) Chloride Level 99 mmol/L (98-107) Carbon Dioxide Level 30 mmol/L (21-32) Anion Gap 9 (6-14) Blood Urea Nitrogen 38 mg/dL (8-26) Creatinine 4.2 mg/dL (0.7-1.3) Estimated GFR (Cockcroft-Gault) 16.7 BUN/Creatinine Ratio 9 (6-20) Glucose Level 102 mg/dL (70-99) Calcium Level 8.9 mg/dL (8.5-10.1) Total Bilirubin 0.7 mg/dL (0.2-1.0) Aspartate Amino Transf (AST/SGOT) 32 U/L (15-37) Alanine Aminotransferase (ALT/SGPT) 22 U/L (16-63) Alkaline Phosphatase 158 U/L (46-116) Total Protein 7.2 g/dL (6.4-8.2) Albumin 2.8 g/dL (3.4-5.0) Albumin/Globulin Ratio 0.6 (1.0-1.7) Glucose (Fingerstick) 77 mg/dL (70-99) 72 mg/dL (70-99) 186 mg/dL (70-99) Test 03/14/19 20:33 03/15/19 07:23 Glucose (Fingerstick) 162 mg/dL (70-99) 139 mg/dL (70-99) Laboratory Tests Test 03/14/19 12:35 03/14/19 16:27 03/14/19 20:33 03/15/19 07:23 Glucose (Fingerstick) 72 mg/dL (70-99) 186 mg/dL (70-99) 162 mg/dL (70-99) 139 mg/dL (70-99) Medications Current Medications Furosemide (Lasix) 40 mg 1X ONCE IVP Last administered on 03/13/19 02:56; Start 03/13/19 at 03:00; Stop 03/13/19 at 03:01; Status DC Albuterol/ Ipratropium (Duoneb) 3 ml RTQID NEB Last administered on 03/14/19at 07:37; Start 03/13/19 at 08:00; Stop 03/14/19 at 07:59; Status DC Allopurinol (Zyloprim) 100 mg DAILY PO Last administered on 03/13/19at 08:54; Start 03/13/19 at 09:00 Aspirin (Children'S Aspirin) 81 mg DAILY PO Last administered on 03/13/19at 08: 54; Start 03/13/19 at 09:00 Atorvastatin Calcium (Lipitor) 40 mg HS PO Last administered on 03/14/19at 20:06 ; Start 03/13/19 at 21:00 Clopidogrel Bisulfate (Plavix) 75 mg DAILY PO Last administered on 03/13/19 08 :54; Start 03/13/19 at 09:00 Cyanocobalamin (Vitamin B-12) 1,000 mcg DAILY PO Last administered on 08:54; Start 03/13/19 at 09:00 Guaifenesin (MUCINEX ER with DM) 1 tab PRN Q12HRS PRN PO COUGH Last administered on 03/15/19 06:05; Start 03/13/19 at 07:30 Ondansetron HCl (Zofran Odt) 4 mg TIDAC PO Last administered on 03/13/19 08:54 ; Start 03/13/19 at 07:30; Stop 03/13/19 at 10:41; Status DC Vitamin D (Vitamin D3) 1,000 unit DAILY PO Last administered on 03/13/19 08:54 ; Start 03/13/19 at 09:00 Vitamin B Complex/ Vitamin C (Krista-Beatriz) 1 tab DAILY PO Last administered on 08:54; Start 03/13/19 at 09:00 Lactobacillus Rhamnosus (Culturelle) 1 cap BID PO Last administered on at 20:06; Start 03/13/19 at 09:00 Pantoprazole Sodium (Protonix) 40 mg DAILYAC PO Last administered on 03/15/19 08:27; Start 03/13/19 at 07:30 Sodium Chloride 1,000 ml @ 1,000 mls/hr Q1H PRN IV hypotension; Start 03/13/19 at 08:14; Stop 03/13/19 at 14:13; Status DC Diphenhydramine HCl (Benadryl) 25 mg 1X PRN PRN IV ITCHING; Start 03/13/19 at 08:15; Stop 03/14/19 at 08:14; Status DC Diphenhydramine HCl (Benadryl) 25 mg 1X PRN PRN IV ITCHING; Start 03/13/19 at 08:15; Stop 03/14/19 at 08:14; Status DC Sodium Chloride 1,000 ml @ 400 mls/hr Q2H30M PRN IV PATENCY; Start 03/13/19 at 08:14; Stop 03/13/19 at 20:13; Status DC Info (PHARMACY MONITORING -- do not chart) 1 each PRN DAILY PRN MC SEE COMMENTS ; Start 03/13/19 at 08:15 Ondansetron HCl (Zofran Odt) 4 mg Q6HRS PRN PO NAUSEA/VOMITING; Start 03/13/19 at 10:45 Insulin Human Lispro (HumaLOG) 0-6 UNITS BG 300-39... TIDWMEALS SQ Last administered on 03/14/19at 17:51; Start 03/13/19 at 12:00 Acetaminophen (Tylenol) 650 mg PRN Q6HRS PRN PO MILD PAIN / TEMP Last administered on 03/14/19at 20:10; Start 03/13/19 at 10:30 Magnesium Hydroxide (Milk Of Magnesia) 2,400 mg PRN DAILY PRN PO CONSTIPATION; Start 03/13/19 at 10:30 Darbepoetin Reinaldo (Aranesp) 60 mcg WEEKLYHS SQ Last administered on 03/14/19at 01 :44; Start 03/13/19 at 21:00 Heparin Sodium (Porcine) (Heparin Sodium) 5,000 unit Q8HRS SQ Last administered on 03/15/19at 06:12; Start 03/13/19 at 14:00 Dextrose (Dextrose 50%-Water Syringe) 25 gm STK-MED ONCE IV ; Start 03/13/19 at 18:01; Stop 03/13/19 at 18:02; Status DC Glucose (Insta-Glucose) 15 gm STK-MED ONCE .ROUTE ; Start 03/13/19 at 18:05; Stop 03/13/19 at 18:06; Status DC Dextrose (Dextrose 50%-Water Syringe) 25 gm 1X ONCE IV ; Start 03/13/19 at 18: 15; Stop 03/13/19 at 18:16; Status DC Glucose (Insta-Glucose) 15 gm 1X ONCE PO Last administered on 03/13/19at 18:12 ; Start 03/13/19 at 18:15; Stop 03/13/19 at 18:16; Status DC Glucose (Insta-Glucose) 15 gm PRN Q15MIN PRN PO LOW BLOOD SUGAR Last administered on 03/13/19at 18:34; Start 03/13/19 at 18:30 Dextrose (Dextrose 50%-Water Syringe) 25 gm STK-MED ONCE IV ; Start 03/13/19 at 18:00; Stop 03/14/19 at 07:40; Status DC Barium Sulfate (Varibar Thin Liquid Apple) 148 gm 1X ONCE PO Last administered on 03/14/19at 11:55; Start 03/14/19 at 11:15; Stop 03/14/19 at 11:17 ; Status DC Albuterol/ Ipratropium (Duoneb) 3 ml RTQID NEB Last administered on 03/15/19at 06:10; Start 03/14/19 at 20:00 Albuterol/ Ipratropium (Duoneb) 3 ml 1X ONCE NEB Last administered on at 16:18; Start 03/14/19 at 16:15; Stop 03/14/19 at 16:18; Status DC Sodium Chloride 1,000 ml @ 1,000 mls/hr Q1H PRN IV hypotension; Start 03/15/19 at 07:34; Stop 03/15/19 at 13:33 Albumin Human 200 ml @ 200 mls/hr 1X PRN PRN IV Hypotension; Start 03/15/19 at 07:45; Stop 03/15/19 at 13:44 Sodium Chloride 1,000 ml @ 400 mls/hr Q2H30M PRN IV PATENCY; Start 03/15/19 at 07:34; Stop 03/15/19 at 19:33 Info (PHARMACY MONITORING -- do not chart) 1 each PRN DAILY PRN MC SEE COMMENTS ; Start 03/15/19 at 07:45; Status UNV Info (PHARMACY MONITORING -- do not chart) 1 each PRN DAILY PRN MC SEE COMMENTS ; Start 03/15/19 at 07:45; Status UNV Cefazolin Sodium 1 gm/Sodium Chloride 500 ml @ 500 mls/hr 1X ONCE IRR ; Start 03/16/19 at 06:00; Stop 03/16/19 at 06:59 Active Scripts Active Metoclopramide Hcl 5 Mg Tablet 5 Mg PO TIDACHC Ondansetron Odt (Ondansetron) 4 Mg Tab.rapdis 4 Mg PO TIDAC Tylenol (Acetaminophen) 325 Mg Tablet 325 Mg PO QID 30 Days Humalog (Insulin Lispro) 100 Unit/1 Ml Insuln.pen 0 Units SQ TIDWMEALS 30 Days BG 150-199= 1 units 200-299= 2 units 300-399= 4 units 400-499= 6 units ac tid sliding scale Reported Duoneb 0.5-3(2.5) Mg/3 Ml (Albuterol/Ipratropium) 3 Ml Ampul.neb 3 Ml NEB PRN Q4HRS PRN Senna-Docusate Sodium Tablet (Sennosides/Docusate Sodium) 1 Each Tablet 2 Each PO PRN QHS PRN Mucinex Dm Er 600-30 Mg Tablet (Guaifenesin/Dextromethorphan) 1 Each Tab.er.12h 1 Tab PO PRN Q12HRS Milk Of Magnesia (Magnesium Hydroxide) 400 Mg/5 Ml Oral.susp 400 Mg PO PRN DAILY PRN Lac-Hydrin Five (Ammonium Lactate) 226 Gm Lotion 226 Gm TP BID Dulcolax (Bisacodyl) 10 Mg Supp.rect 10 Mg RC PRN DAILY PRN Benadryl Allergy (Diphenhydramine Hcl) 12.5 Mg/5 Ml Liquid 25 Mg PO PRN Q6HRS PRN Vitamin B-12 (Cyanocobalamin (Vitamin B-12)) 1,000 Mcg Tablet 1 Tab PO DAILY Allopurinol 100 Mg Tablet 1 Tab PO DAILY Renal Caps Softgel (Folic Acid/Vitamin B Comp W-C) 1 Mg Capsule 1 Cap PO DAILY Acidophilus Lactobacilli (Lactobacillus Acidophilus) 1 Each Capsule 1 Each PO BID Protonix (Pantoprazole Sodium) 20 Mg Tablet.dr 40 Mg PO DAILY Renvela (Sevelamer Carbonate) 800 Mg Tablet 800 Mg PO TIDWMEALS Tylenol (Acetaminophen) 325 Mg Tablet 1 Tab PO PRN Q4HRS Aspirin 81 Mg Tab.chew 81 Mg PO DAILY Lipitor (Atorvastatin Calcium) 40 Mg Tablet 40 Mg PO HS Clopidogrel (Clopidogrel Bisulfate) 75 Mg Tablet 75 Mg PO DAILY Vitamin D-3 (Cholecalciferol (Vitamin D3)) 2,000 Unit Capsule 1,000 Unit PO DAILY Vitals/I & O Vital Sign - Last 24 Hours 03/14/19 03/14/19 03/14/19 03/14/19 12:30 12:36 12:55 15:14 Temp 98.2 97.6 98.2 97.6 Pulse 65 62 Resp 18 20 B/P (MAP) 122/61 (81) 130/68 (88) Pulse Ox 98 99 O2 Delivery Nasal Cannula Nasal Cannula Nasal Cannula Nasal Cannula O2 Flow Rate 4.0 4.0 4.0 4.0 03/14/19 03/14/19 03/14/19 03/14/19 16:18 19:00 20:00 20:18 Temp 98.6 98.6 Pulse 60 Resp 20 B/P (MAP) 108/60 (76) Pulse Ox 99 98 99 O2 Delivery Nasal Cannula Nasal Cannula Nasal Cannula Nasal Cannula O2 Flow Rate 4.0 4.0 4.0 4.0 03/14/19 03/15/19 03/15/19 03/15/19 23:00 03:00 06:10 07:00 Temp 98.2 97.4 98.3 98.2 97.4 98.3 Pulse 60 63 60 Resp 20 18 17 B/P (MAP) 121/54 (76) 113/57 (75) 124/60 (81) Pulse Ox 93 93 96 98 O2 Delivery Nasal Cannula Nasal Cannula Nasal Cannula Nasal Cannula O2 Flow Rate 4.0 4.0 3.0 4.0 Intake and Output 03/14/19 03/14/19 03/15/19 15:00 23:00 07:00 Intake Total 480 ml Output Total 0 ml 0 ml 225 ml Balance 0 ml 480 ml -225 ml KIMI TIDWELL MD Mar 15, 2019 10:31
[2019-03-15] MEDS: ASPIRIN CHEWABLE 81 MG TABLET. PO SCH (10:59)
[2019-03-15] MEDS: CYANOCOBALAMIN (VITAMIN B-12) 1,000 MCG TABLET. PO SCH (10:59)
[2019-03-15] MEDS: FOLIC/VIT B COMP W-C (RENAL) TABLET. PO SCH (10:59)
[2019-03-15] MEDS: ALLOPURINOL 100 MG TABLET. PO SCH (10:59)
[2019-03-15] MEDS: CLOPIDOGREL BISULFATE 75 MG TABLET PO SCH (10:59)
[2019-03-15] MEDS: CHOLECALCIFEROL (VITAMIN D3) 1,000 UNIT TABLET PO SCH (10:59)
[2019-03-15] MEDS: LACTOBACILLUS RHAMNOSUS GG 1 CAPSULE. PO SCH ×2 (11:00→21:07)
--- NOTE | 2019-03-15 11:03 | NUR ---
Held am meds for dialysis. Pt will be going late this afternoon, gave meds after given update on estimated time of dialysis.
--- NOTE | 2019-03-15 12:10 | NUR ---
Wound Care: Patient seen per wound care follow up regarding multiple wounds. All wounds cleansed and assessed and redressed. (see wound assessment). Wound vac applied to right distal foot wound with piper foam at 125 mmHg continuous suction, ostomy ring to nasim-wound, vac tracked up to anterior right leg. WC will change all dressings on Wed, Wed and Wednesday while inpatient. No other wounds noted on full skin inspection. Patient in chair at this time. Call light in reach. Spoke with RN regarding POC. Wheelchair cushion ordered for this patient. Nystatin powder needed for groin area. Wound care will follow up with patient on Wednesday.
[2019-03-15] MEDS ORDERED: CONTRAST GIVEN. MC PRN (12:45)
[2019-03-15] MEDS ORDERED: IOHEXOL 300 MG/ML 100ML VIAL. IV ONE (12:45)
[2019-03-15] MEDS: ACETAMINOPHEN 325 MG TABLET. PO PRN ×2 (14:25→21:09)
--- NOTE | 2019-03-15 15:20 | PDOC ---
PULMONARY PROGRESS NOTES Subjective no soa Vitals Vital Signs Date Time Temp Pulse Resp B/P (MAP) Pulse Ox O2 Delivery O2 Flow Rate FiO2 03/15/19 15:00 97.5 60 17 125/65 (85) 95 Nasal Cannula 4.0 97.5 General: Alert, No acute distress HEENT: Other Lungs: Clear Cardiovascular: S1, S2 Abdomen: Soft, Non-tender Extremities: Other (1+edema/ stasis) Labs Laboratory Tests Test 03/13/19 18:00 03/13/19 18:25 03/13/19 18:59 03/13/19 20:11 Glucose (Fingerstick) 58 mg/dL (70-99) 63 mg/dL (70-99) 66 mg/dL (70-99) 169 mg/dL (70-99) Test 03/13/19 21:15 03/14/19 00:04 03/14/19 05:45 03/14/19 08:12 Troponin I Quantitative 0.082 ng/mL (0.000-0.055) Glucose (Fingerstick) 117 mg/dL (70-99) 77 mg/dL (70-99) White Blood Count 6.3 x10^3/uL (4.0-11.0) Red Blood Count 3.59 x10^6/uL (4.30-5.70) Hemoglobin 10.0 g/dL (13.0-17.5) Hematocrit 32.9 % (39.0-53.0) Mean Corpuscular Volume 92 fL (79-100) Mean Corpuscular Hemoglobin 28 pg (25-35) Mean Corpuscular Hemoglobin Concent 30 g/dL (31-37) Red Cell Distribution Width 19.1 % (11.5-14.5) Platelet Count 185 x10^3/uL (140-400) Neutrophils (%) (Auto) 63 % (31-73) Lymphocytes (%) (Auto) 20 % (24-48) Monocytes (%) (Auto) 8 % (0-9) Eosinophils (%) (Auto) 8 % (0-3) Basophils (%) (Auto) 1 % (0-3) Neutrophils # (Auto) 3.9 x10^3uL (1.8-7.7) Lymphocytes # (Auto) 1.3 x10^3/uL (1.0-4.8) Monocytes # (Auto) 0.5 x10^3/uL (0.0-1.1) Eosinophils # (Auto) 0.5 x10^3/uL (0.0-0.7) Basophils # (Auto) 0.1 x10^3/uL (0.0-0.2) Sodium Level 138 mmol/L (136-145) Potassium Level 4.6 mmol/L (3.5-5.1) Chloride Level 99 mmol/L (98-107) Carbon Dioxide Level 30 mmol/L (21-32) Anion Gap 9 (6-14) Blood Urea Nitrogen 38 mg/dL (8-26) Creatinine 4.2 mg/dL (0.7-1.3) Estimated GFR (Cockcroft-Gault) 16.7 BUN/Creatinine Ratio 9 (6-20) Glucose Level 102 mg/dL (70-99) Calcium Level 8.9 mg/dL (8.5-10.1) Total Bilirubin 0.7 mg/dL (0.2-1.0) Aspartate Amino Transf (AST/SGOT) 32 U/L (15-37) Alanine Aminotransferase (ALT/SGPT) 22 U/L (16-63) Alkaline Phosphatase 158 U/L (46-116) Total Protein 7.2 g/dL (6.4-8.2) Albumin 2.8 g/dL (3.4-5.0) Albumin/Globulin Ratio 0.6 (1.0-1.7) Test 03/14/19 12:35 03/14/19 16:27 03/14/19 20:33 03/15/19 07:23 Glucose (Fingerstick) 72 mg/dL (70-99) 186 mg/dL (70-99) 162 mg/dL (70-99) 139 mg/dL (70-99) Test 03/15/19 11:29 Glucose (Fingerstick) 190 mg/dL (70-99) Laboratory Tests Test 03/14/19 16:27 03/14/19 20:33 03/15/19 07:23 03/15/19 11:29 Glucose (Fingerstick) 186 mg/dL (70-99) 162 mg/dL (70-99) 139 mg/dL (70-99) 190 mg/dL (70-99) Medications Active Scripts Medications Dose Route/Sig Max Daily Dose Days Date Category Dose Instructions Duoneb 0.5-3(2.5) Mg/3 Ml (Albuterol/Ipratropium) 3 Ml Ampul.neb 3 Ml NEB PRN Q4HRS PRN 03/13/19 Reported Senna-Docusate Sodium Tablet (Sennosides/Docusate Sodium) 1 Each Tablet 2 Each PO PRN QHS PRN 03/13/19 Reported Mucinex Dm Er 600-30 Mg Tablet (Guaifenesin/Dextromethorphan) 1 Each Tab.er.12h 1 Tab PO PRN Q12HRS 03/13/19 Reported Milk Of Magnesia (Magnesium Hydroxide) 400 Mg/5 Ml Oral.susp 400 Mg PO PRN DAILY PRN 03/13/19 Reported Lac-Hydrin Five (Ammonium Lactate) 226 Gm Lotion 226 Gm TP BID 03/13/19 Reported Dulcolax (Bisacodyl) 10 Mg Supp.rect 10 Mg RC PRN DAILY PRN 03/13/19 Reported Benadryl Allergy (Diphenhydramine Hcl) 12.5 Mg/5 Ml Liquid 25 Mg PO PRN Q6HRS PRN 03/13/19 Reported Metoclopramide Hcl 5 Mg Tablet 5 Mg PO TIDACHC 01/05/19 Rx Ondansetron Odt (Ondansetron) 4 Mg Tab.rapdis 4 Mg PO TIDAC 01/05/19 Rx Tylenol (Acetaminophen) 325 Mg Tablet 325 Mg PO QID 30 01/05/19 Rx Vitamin B-12 (Cyanocobalamin (Vitamin B-12)) 1,000 Mcg Tablet 1 Tab PO DAILY 11/24/18 Reported Allopurinol 100 Mg Tablet 1 Tab PO DAILY 11/24/18 Reported Renal Caps Softgel (Folic Acid/Vitamin B Comp W-C) 1 Mg Capsule 1 Cap PO DAILY 11/24/18 Reported Acidophilus Lactobacilli (Lactobacillus Acidophilus) 1 Each Capsule 1 Each PO BID 11/24/18 Reported Protonix (Pantoprazole Sodium) 20 Mg Tablet.dr 40 Mg PO DAILY 11/24/18 Reported Renvela (Sevelamer Carbonate) 800 Mg Tablet 800 Mg PO TIDWMEALS 11/24/18 Reported Tylenol (Acetaminophen) 325 Mg Tablet 1 Tab PO PRN Q4HRS 11/24/18 Reported Aspirin 81 Mg Tab.chew 81 Mg PO DAILY 11/24/18 Reported Lipitor (Atorvastatin Calcium) 40 Mg Tablet 40 Mg PO HS 11/24/18 Reported Clopidogrel (Clopidogrel Bisulfate) 75 Mg Tablet 75 Mg PO DAILY 11/24/18 Reported Humalog (Insulin Lispro) 100 Unit/1 Ml Insuln.pen 0 Units SQ TIDWMEALS 30 11/11/18 Rx BG 150-199= 1 units 200-299= 2 units 300-399= 4 units 400-499= 6 units ac tid sliding scale Vitamin D-3 (Cholecalciferol (Vitamin D3)) 2,000 Unit Capsule 1,000 Unit PO DAILY 09/13/17 Reported Comments IMPRESSION: 1. Moderate cardiomegaly with extensive coronary artery calcifications. 2. Mediastinal lymph nodes of borderline size. 3. Small right pleural effusion. 4. Mild bilateral dependent atelectasis and/or edema. 5. Small nonspecific left basilar pulmonary nodule. CT follow-up may be prudent to exclude a neoplastic etiology. 6. Cholelithiasis. Impression . 1. Acute hypoxic respiratory failure, likely related to mild congestive heart failure, although not well seen on chest x-ray. 2. Chronic hypercapnia, likely related to obesity hypoventilation syndrome. Denies significant tobacco history. ABG shows compensated respiratory acidosis. 3. End-stage renal disease, on hemodialysis. 4. Previous h/o CVA Plan . 1. Discussed with RN EDER to proceed with vascular flap. Does have risk for worsening hypercapnia with sedation but benefits of surgery outweighs risk 2. CT post-hemodialysis reviewed, no obvious CHF, Tiny 6 mm LLL nodule. D/W DR TIDWELL, Rec ct chest in 6 months 3. Wean oxygen off. 4. Minimize the use of narcotics. 5. Continue DuoNebs. 6. Deep venous thrombosis prophylaxis. 7. Discussed with Renal. We will follow along with you. YARELIS COWAN MD Mar 15, 2019 15:20
--- NOTE | 2019-03-15 15:27 | PDOC ---
Provider Note Provider Note Pt seen in anticipation of prior scheduled surgery tomorrow. Was admitted for SOB, but appears to be stable currently with anticipation of stable for discharge tomorrow. He has no complaints today. O: VSS, afebrile Alert, oriented in no apparent distress Abdomen obese, nontender Right foot with wound vac on in place with good suction. Skin dry A/P: s/p Right open third, fourth and fifth toe amputation and Right lateral ankle debridement on 01/03/19 - For right foot skin graft placement tomorrow if ok per primary for surgery ( this was scheduled prior to this admission). RN advised to notify us if primary considers pt not stable for surgery. Typically is an outpatient procedure, pt can likely go after procedure once deemed medically stable by primary. AMLEIA ALICIA Mar 15, 2019 15:27
--- NOTE | 2019-03-15 15:35 | RAD ---
Examination: CT MAXILLOFACIAL W/CONTRAST History: SPHENOID SINUS INFECTION/MASS? [id number] 70ML, NO PRIORS Comparison/Correlation: 03/11/2019 CT head without contrast Findings: Axial images of the maxillofacial structures were obtained following IV contrast. Sagittal and coronal reformatted images provided. Complete opacification of the right sphenoid sinus is present. Extension of soft tissue density into the right posterior ethmoid air cells noted. Extension into the superior aspect of the right nasal cavity is present. Overall morphology is similar upon correlation with previous CT of the head without contrast exam. Slight enhancement of this process is present with Hounsfield units of 60 as compared to previous exam without contrast also units of 48. Bony resorption at the anterior aspect of the right sphenoid sinus anterior wall superomedially is noted. Old right medial orbital wall fractures present. Temporomandibular joints are unremarkable. Advanced degenerative changes of the upper cervical spine are present. The patient is partially edentulous. Impression: Intermediate density process involving the sphenoid sinus and right posterior ethmoid air cells appears to have slight enhancement. Bony resorption of the anterior right sphenoid sinus medial wall. Underlying mass lesion is not excluded. Electronically signed by: Michael Almaraz MD (03/15/2019 3:32 PM) [id number]
--- NOTE | 2019-03-15 15:44 | PDOC ---
SUBJECTIVE ROS States feeling alright OBJECTIVE Vital Signs Vital Signs Date Time Temp Pulse Resp B/P (MAP) Pulse Ox O2 Delivery O2 Flow Rate FiO2 03/15/19 15:39 99 Nasal Cannula 2.0 03/15/19 15:00 97.5 60 17 125/65 (85) 97.5 I & 0 Intake and Output 03/15/19 06:59 Intake Total 480 ml Output Total 225 ml Balance 255 ml Intake Oral 480 ml Output Urine Total 225 ml PHYSICAL EXAM Physical Exam GEN: Mild distress HEENT: O2 by NC, Upper dentures are loose. NECK: supple HEART: S1, S2 LUNGS: mild rhonchi and decreased breath sounds anteriorly. ABDOMEN: Soft, obese, nontender. 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 Anemia- Aranesp Acute hypoxic and hypercarbic respiratory failure No Vol Overload clinically, HD Today Obstructive sleep apnea- At [facility] Diabetes mellitus type 2. Peripheral arterial disease. Severe protein-calorie malnutrition. COMMENT/RELEVANT DATA Meds Current Medications Medications (Trade) Dose Ordered Sig/Bhavesh Start Time Stop Time Status Last Admin Dose Admin Acetaminophen (Tylenol) 650 mg PRN Q6HRS PRN 03/13/19 10:30 03/15/19 14:25 650 MG Albumin Human 200 ml @ 200 mls/hr 1X PRN PRN 03/15/19 07:45 03/15/19 13:44 DC Albuterol/ Ipratropium (Duoneb) 3 ml 1X ONCE 03/14/19 16:15 03/14/19 16:18 DC 03/14/19 16:18 3 ML Allopurinol (Zyloprim) 100 mg DAILY 03/13/19 09:00 03/15/19 10:59 100 MG Aspirin (Children'S Aspirin) 81 mg DAILY 03/13/19 09:00 03/15/19 10:59 81 MG Atorvastatin Calcium (Lipitor) 40 mg HS 03/13/19 21:00 03/14/19 20:06 40 MG Barium Sulfate (Varibar Thin Liquid Apple) 148 gm 1X ONCE 03/14/19 11:15 03/14/19 11:17 DC 03/14/19 11:55 148 GM Cefazolin Sodium 1 gm/Sodium Chloride 500 ml @ 500 mls/hr 1X ONCE 03/16/19 06:00 03/16/19 06:59 Clopidogrel Bisulfate (Plavix) 75 mg DAILY 03/13/19 09:00 03/15/19 10:59 75 MG Cyanocobalamin (Vitamin B-12) 1,000 mcg DAILY 03/13/19 09:00 03/15/19 10:59 1,000 MCG Darbepoetin Reinaldo (Aranesp) 60 mcg WEEKLYHS 03/13/19 21:00 03/14/19 01:44 60 MCG Dextrose (Dextrose 50%-Water Syringe) 25 gm STK-MED ONCE 03/13/19 18:00 03/14/19 07:40 DC Diphenhydramine HCl (Benadryl) 25 mg 1X PRN PRN 03/13/19 08:15 03/14/19 08:14 DC Fentanyl Citrate (Fentanyl 2ml Vial) 50 mcg PRN Q5MIN PRN 03/16/19 07:00 03/17/19 06:59 Furosemide (Lasix) 40 mg 1X ONCE 03/13/19 03:00 03/13/19 03:01 DC 03/13/19 02:56 40 MG Glucose (Insta-Glucose) 15 gm PRN Q15MIN PRN 03/13/19 18:30 03/13/19 18:34 15 GM Guaifenesin (MUCINEX ER with DM) 1 tab PRN Q12HRS PRN 03/13/19 07:30 03/15/19 06:05 1 TAB Heparin Sodium (Porcine) (Heparin Sodium) 5,000 unit Q8HRS 03/13/19 14:00 03/15/19 14:37 5,000 UNIT Hydromorphone HCl (Dilaudid) 0.5 mg PRN Q10MIN PRN 03/16/19 07:00 03/17/19 06:59 Info (CONTRAST GIVEN -- Rx MONITORING) 1 each PRN DAILY PRN 03/15/19 12:45 03/17/19 12:44 Info (PHARMACY MONITORING -- do not chart) 1 each PRN DAILY PRN 03/15/19 07:45 UNV Insulin Human Lispro (HumaLOG) 0-6 UNITS BG 300-39... TIDWMEALS 03/13/19 12:00 03/15/19 12:34 1 UNITS Iohexol (Omnipaque 300 Mg/ml) 75 ml 1X ONCE 03/15/19 12:45 03/15/19 12:46 DC 03/15/19 12:45 75 ML Lactobacillus Rhamnosus (Culturelle) 1 cap BID 03/13/19 09:00 03/15/19 11:00 1 CAP Lidocaine HCl (Xylocaine-Mpf 1% 2ml Vial) 2 ml PRN 1X PRN 03/16/19 07:00 03/17/19 06:59 Magnesium Hydroxide (Milk Of Magnesia) 2,400 mg PRN DAILY PRN 03/13/19 10:30 Morphine Sulfate (Morphine Sulfate) 1 mg PRN Q10MIN PRN 03/16/19 07:00 03/17/19 06:59 Ondansetron HCl (Zofran Odt) 4 mg Q6HRS PRN 03/13/19 10:45 Ondansetron HCl (Zofran) 4 mg PRN Q6HRS PRN 03/16/19 07:00 03/17/19 06:59 Pantoprazole Sodium (Protonix) 40 mg DAILYAC 03/13/19 07:30 03/15/19 08:27 40 MG Prochlorperazine Edisylate (Compazine) 5 mg PACU PRN PRN 03/16/19 07:00 03/16/19 20:00 Ringer's Solution 1,000 ml @ 30 mls/hr Q24H 03/16/19 07:00 03/16/19 18:59 Sodium Chloride 1,000 ml @ 400 mls/hr Q2H30M PRN 03/15/19 07:34 03/15/19 19:33 Vitamin B Complex/ Vitamin C (Krista-Beatriz) 1 tab DAILY 03/13/19 09:00 03/15/19 10:59 1 TAB Vitamin D (Vitamin D3) 1,000 unit DAILY 03/13/19 09:00 03/15/19 10:59 1,000 UNIT Lab Laboratory Tests Test 03/14/19 16:27 03/14/19 20:33 03/15/19 07:23 03/15/19 11:29 Glucose (Fingerstick) 186 mg/dL (70-99) 162 mg/dL (70-99) 139 mg/dL (70-99) 190 mg/dL (70-99) Results All relevant outside records, renal labs, imaging studies, telemetry/EKG's were reviewed. WAYLON GONZALEZ MD Mar 15, 2019 15:43
[2019-03-15 19:27] LABS: BASO # 0.1 x10^3/uL (0.0-0.2); BASO % 1 % (0-3); CALCIUM 8.4 mg/dL (8.5-10.1); CREATININE 3.6 mg/dL (0.7-1.3); EOS # 0.4 x10^3/uL (0.0-0.7); EOS % 7 % (0-3); GFR 19.9; HEMATOCRIT 28.2 % (39.0-53.0); HEMOGLOBIN 8.9 g/dL (13.0-17.5); LYMPH # 1.1 x10^3/uL (1.0-4.8); LYMPH % 17 % (24-48); MEAN CORPUSCULAR HEMOGLOBIN 28 pg (25-35); MEAN CORPUSCULAR HGB CONC 32 g/dL (31-37); MEAN CORPUSCULAR VOLUME 88 fL (79-100); MONO # 0.4 x10^3/uL (0.0-1.1); MONO % 6 % (0-9); NEUT # 4.4 x10^3uL (1.8-7.7); NEUT % 69 % (31-73); PLATELET COUNT 202 x10^3/uL (140-400); POTASSIUM 3.2 mmol/L (3.5-5.1); RED BLOOD COUNT 3.23 x10^6/uL (4.30-5.70); RED CELL DISTRIBUTION WIDTH 18.5 % (11.5-14.5); WHITE BLOOD COUNT 6.5 x10^3/uL (4.0-11.0)
[2019-03-15] MEDS: ATORVASTATIN CALCIUM 40 MG TABLET. PO SCH (21:10)
[2019-03-16 03:00] VITALS: BP 147/71
[2019-03-16] MEDS: HEPARIN for SUB-Q USE 5,000 UNIT/ML VIAL. SQ SCH ×3 (06:00→21:27)
[2019-03-16 07:00] VITALS: BP 134/66
[2019-03-16] MEDS ORDERED: ONDANSETRON PF 4 MG/2 ML VIAL. IV PRN (07:00)
[2019-03-16] MEDS ORDERED: HYDROmorphone 2 MG/ML VIAL IV PRN (07:00)
[2019-03-16] MEDS ORDERED: MORPHINE SULFATE 2 MG/ML VIAL. IV PRN (07:00)
[2019-03-16] MEDS ORDERED: LIDOCAINE 1% PF 2 ML VIAL. ID PRN (07:00)
[2019-03-16] MEDS ORDERED: IV RINGERS,LACTATED 1000ML 1,000 ML IV SCH (07:00)
[2019-03-16] MEDS ORDERED: fentaNYL PF VIAL 100 MCG/2 ML VIAL IV PRN ×2 (07:00)
[2019-03-16] MEDS ORDERED: PROCHLORPERAZINE 10 MG/2 ML VIAL. IV PRN (07:00)
[2019-03-16] MEDS: IPRATRPIUM/ALBUTEROL 0.5/2.5MG 3 ML NEBU. NEB SCH ×4 (07:30→20:34)
[2019-03-16] MEDS: PANTOPRAZOLE 40 MG TABLET.DR. PO SCH (07:30)
[2019-03-16] MEDS: INSULIN LISPRO 300 UNITS/3 ML INSULN.PEN. SQ SCH ×4 (08:00→21:36)
[2019-03-16] MEDS: LACTOBACILLUS RHAMNOSUS GG 1 CAPSULE. PO SCH ×2 (08:58→21:22)
[2019-03-16] MEDS: ASPIRIN CHEWABLE 81 MG TABLET. PO SCH (08:58)
[2019-03-16] MEDS: CLOPIDOGREL BISULFATE 75 MG TABLET PO SCH (08:58)
[2019-03-16] MEDS: FOLIC/VIT B COMP W-C (RENAL) TABLET. PO SCH (08:58)
[2019-03-16] MEDS: CYANOCOBALAMIN (VITAMIN B-12) 1,000 MCG TABLET. PO SCH (08:59)
[2019-03-16] MEDS: CHOLECALCIFEROL (VITAMIN D3) 1,000 UNIT TABLET PO SCH (08:59)
[2019-03-16] MEDS: ALLOPURINOL 100 MG TABLET. PO SCH (08:59)
[2019-03-16] MEDS ORDERED: LIDOCAINE 1% PF 30 ML VIAL. ONE (10:24)
[2019-03-16] MEDS ORDERED: MINERAL OIL for SURGERY 10 ML VIAL. MC ONE ×2 (10:24→11:57)
[2019-03-16] MEDS ORDERED: BUPIVAC MPF-EPI 0.5%-1:200000 30 ML VIAL. ONE (10:24)
[2019-03-16] MEDS ORDERED: LIDOCAINE 1%/EPI 1:100,000 20 ML VIAL. ONE (10:58)
[2019-03-16] MEDS ORDERED: DEXAMETHASONE SOD PHOS 20 MG/5 ML VIAL. ONE (11:00)
[2019-03-16] MEDS ORDERED: ONDANSETRON PF 4 MG/2 ML VIAL. ONE (11:00)
[2019-03-16] MEDS ORDERED: PROPOFOL 20 ML IV ONE (11:00)
[2019-03-16] MEDS ORDERED: LIDOCAINE 2% PF 5 ML VIAL. ONE (11:00)
[2019-03-16] MEDS ORDERED: IV NORMAL SALINE 1000ML BAG 1,000 ML IV SCH (11:30)
--- NOTE | 2019-03-16 12:19 | PDOC ---
SUBJECTIVE ROS Stable OBJECTIVE Vital Signs Vital Signs Date Time Temp Pulse Resp B/P (MAP) Pulse Ox O2 Delivery O2 Flow Rate FiO2 03/16/19 11:06 97 63 24 134/65 100 Nasal Cannula 2.0 97.0 I & 0 Intake and Output 03/16/19 07:00 Intake Total 1230 ml Balance 1230 ml Intake Oral 1230 ml # Bowel Movements 2 PHYSICAL EXAM Physical Exam GEN:NAD HEENT: O2 by NC, NECK: supple HEART: S1, S2 LUNGS: mild rhonchi and decreased breath sounds anteriorly. ABDOMEN: Soft, obese, nontender. EXTREMITIES: No edema , dressing over his right foot NEUROLOGIC: AxO No Miller SKIN- No Rash DIAGNOSIS/ASSESSMENT Assessment & Plan ESRD- On HD MWF No indication for HD today Peripheral arterial disease. 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 Right open third, fourth and fifth toe amputation and Right lateral ankle debridement on 01/03/19 Right foot skin graft placement tomorrow Vascular and ID Anemia- Aranesp Acute hypoxic and hypercarbic respiratory failure No Vol Overload clinically, HD Today Obstructive sleep apnea- At [facility] Diabetes mellitus type 2. Severe protein-calorie malnutrition. COMMENT/RELEVANT DATA Meds Current Medications Medications (Trade) Dose Ordered Sig/Bhavesh Start Time Stop Time Status Last Admin Dose Admin Acetaminophen (Tylenol) 650 mg PRN Q6HRS PRN 03/13/19 10:30 03/15/19 21:09 650 MG Albumin Human 200 ml @ 200 mls/hr 1X PRN PRN 03/15/19 07:45 03/15/19 13:44 DC Albuterol/ Ipratropium (Duoneb) 3 ml 1X ONCE 03/14/19 16:15 03/14/19 16:18 DC 03/14/19 16:18 3 ML Allopurinol (Zyloprim) 100 mg DAILY 03/13/19 09:00 03/15/19 10:59 100 MG Aspirin (Children'S Aspirin) 81 mg DAILY 03/13/19 09:00 03/15/19 10:59 81 MG Atorvastatin Calcium (Lipitor) 40 mg HS 03/13/19 21:00 03/15/19 21:10 40 MG Barium Sulfate (Varibar Thin Liquid Apple) 148 gm 1X ONCE 03/14/19 11:15 03/14/19 11:17 DC 03/14/19 11:55 148 GM Bupivacaine HCl/ Epinephrine Bitart (Sensorcain-Mpf Epi 0.5%-1:[id number]) 30 ml STK-MED ONCE 03/16/19 10:24 03/16/19 11:24 DC Cefazolin Sodium 1 gm/Sodium Chloride 500 ml @ 500 mls/hr 1X ONCE 03/16/19 06:00 03/16/19 06:59 DC Cefazolin Sodium/ Dextrose 50 ml @ 100 mls/hr 1X ONCE 03/16/19 11:15 03/16/19 11:44 DC 03/16/19 11:41 100 MLS/HR Cephalexin HCl (Keflex) 500 mg BID 03/16/19 21:00 03/30/19 20:59 Clopidogrel Bisulfate (Plavix) 75 mg DAILY 03/13/19 09:00 03/15/19 10:59 75 MG Cyanocobalamin (Vitamin B-12) 1,000 mcg DAILY 03/13/19 09:00 03/15/19 10:59 1,000 MCG Darbepoetin Reinaldo (Aranesp) 60 mcg WEEKLYHS 03/13/19 21:00 03/14/19 01:44 60 MCG Dexamethasone Sodium Phosphate (Decadron) 20 mg STK-MED ONCE 03/16/19 11:00 03/16/19 11:01 DC Dextrose (Dextrose 50%-Water Syringe) 25 gm STK-MED ONCE 03/13/19 18:00 03/14/19 07:40 DC Diphenhydramine HCl (Benadryl) 25 mg 1X PRN PRN 03/13/19 08:15 03/14/19 08:14 DC Fentanyl Citrate (Fentanyl 2ml Vial) 50 mcg PRN Q5MIN PRN 03/16/19 07:00 03/17/19 06:59 Furosemide (Lasix) 40 mg 1X ONCE 03/13/19 03:00 03/13/19 03:01 DC 03/13/19 02:56 40 MG Glucose (Insta-Glucose) 15 gm PRN Q15MIN PRN 03/13/19 18:30 03/13/19 18:34 15 GM Guaifenesin (MUCINEX ER with DM) 1 tab PRN Q12HRS PRN 03/13/19 07:30 03/15/19 06:05 1 TAB Heparin Sodium (Porcine) (Heparin Sodium) 5,000 unit Q8HRS 03/13/19 14:00 03/15/19 21:18 5,000 UNIT Hydromorphone HCl (Dilaudid) 0.5 mg PRN Q10MIN PRN 03/16/19 07:00 03/17/19 06:59 Info (CONTRAST GIVEN -- Rx MONITORING) 1 each PRN DAILY PRN 03/15/19 12:45 03/17/19 12:44 Info (PHARMACY MONITORING -- do not chart) 1 each PRN DAILY PRN 03/15/19 07:45 UNV Insulin Human Lispro (HumaLOG) 0-6 UNITS BG 300-39... TIDWMEALS 03/13/19 12:00 03/15/19 12:34 1 UNITS Iohexol (Omnipaque 300 Mg/ml) 75 ml 1X ONCE 03/15/19 12:45 03/15/19 12:46 DC 03/15/19 12:45 75 ML Lactobacillus Rhamnosus (Culturelle) 1 cap BID 03/13/19 09:00 03/15/19 21:07 1 CAP Lidocaine HCl (Lidocaine Pf 2% Vial) 5 ml STK-MED ONCE 03/16/19 11:00 03/16/19 11:01 DC Lidocaine HCl (Xylocaine 1% Pf 30ml Vial) 30 ml STK-MED ONCE 03/16/19 10:24 03/16/19 11:25 DC Lidocaine HCl (Xylocaine-Mpf 1% 2ml Vial) 2 ml PRN 1X PRN 03/16/19 07:00 03/17/19 06:59 Lidocaine/ Epinephrine (LIDOCAINE 1%-EPI 1:100,000 Multi-Dose) 20 ml STK-MED ONCE 03/16/19 10:58 03/16/19 11:58 DC Magnesium Hydroxide (Milk Of Magnesia) 2,400 mg PRN DAILY PRN 03/13/19 10:30 Mineral Oil (Muri-Lube) 10 ml STK-MED ONCE 03/16/19 10:24 03/16/19 11:25 DC Morphine Sulfate (Morphine Sulfate) 1 mg PRN Q10MIN PRN 03/16/19 07:00 03/17/19 06:59 Ondansetron HCl (Zofran Odt) 4 mg Q6HRS PRN 03/13/19 10:45 Ondansetron HCl (Zofran) 4 mg STK-MED ONCE 03/16/19 11:00 03/16/19 11:01 DC Pantoprazole Sodium (Protonix) 40 mg DAILYAC 03/13/19 07:30 03/15/19 08:27 40 MG Prochlorperazine Edisylate (Compazine) 5 mg PACU PRN PRN 03/16/19 07:00 03/16/19 20:00 Propofol 20 ml @ As Directed STK-MED ONCE 03/16/19 11:00 03/16/19 11:01 DC Ringer's Solution 1,000 ml @ 30 mls/hr Q24H 03/16/19 07:00 03/16/19 11:37 DC Sodium Chloride 1,000 ml @ 0 mls/hr Q0M 03/16/19 11:30 Vitamin B Complex/ Vitamin C (Krista-Beatriz) 1 tab DAILY 03/13/19 09:00 03/15/19 10:59 1 TAB Vitamin D (Vitamin D3) 1,000 unit DAILY 03/13/19 09:00 03/15/19 10:59 1,000 UNIT Lab Laboratory Tests Test 03/15/19 16:23 03/15/19 19:00 03/15/19 20:42 03/16/19 07:09 Glucose (Fingerstick) 248 mg/dL (70-99) 103 mg/dL (70-99) 126 mg/dL (70-99) White Blood Count 6.5 x10^3/uL (4.0-11.0) Red Blood Count 3.23 x10^6/uL (4.30-5.70) Hemoglobin 8.9 g/dL (13.0-17.5) Hematocrit 28.2 % (39.0-53.0) Mean Corpuscular Volume 88 fL (79-100) Mean Corpuscular Hemoglobin 28 pg (25-35) Mean Corpuscular Hemoglobin Concent 32 g/dL (31-37) Red Cell Distribution Width 18.5 % (11.5-14.5) Platelet Count 202 x10^3/uL (140-400) Neutrophils (%) (Auto) 69 % (31-73) Lymphocytes (%) (Auto) 17 % (24-48) Monocytes (%) (Auto) 6 % (0-9) Eosinophils (%) (Auto) 7 % (0-3) Basophils (%) (Auto) 1 % (0-3) Neutrophils # (Auto) 4.4 x10^3uL (1.8-7.7) Lymphocytes # (Auto) 1.1 x10^3/uL (1.0-4.8) Monocytes # (Auto) 0.4 x10^3/uL (0.0-1.1) Eosinophils # (Auto) 0.4 x10^3/uL (0.0-0.7) Basophils # (Auto) 0.1 x10^3/uL (0.0-0.2) Sodium Level 138 mmol/L (136-145) Potassium Level 3.2 mmol/L (3.5-5.1) Chloride Level 98 mmol/L (98-107) Carbon Dioxide Level 30 mmol/L (21-32) Anion Gap 10 (6-14) Blood Urea Nitrogen 28 mg/dL (8-26) Creatinine 3.6 mg/dL (0.7-1.3) Estimated GFR (Cockcroft-Gault) 19.9 Glucose Level 136 mg/dL (70-99) Calcium Level 8.4 mg/dL (8.5-10.1) Results All relevant outside records, renal labs, imaging studies, telemetry/EKG's were reviewed. WAYLON GONZALEZ MD Mar 16, 2019 12:19
[2019-03-16] MEDS ORDERED: SEVOFLURANE 31 TO 60 MINUTES. IH ONE (12:43)
--- NOTE | 2019-03-16 12:52 | PDOC ---
VASCULAR BRIEF OPERATIVE NOTE Date: Mar 16, 2019 Pre-Op Diagnosis open TMA right foot Post-Op Diagnosis same Procedure Performed forefoot wound debridement including resection segment of first metatarsal shaft STSG right thigh to right forefoot Surgeon Chandler Anesthesia Type: General YA HELLER MD Mar 16, 2019 12:52
--- NOTE | 2019-03-16 13:42 | NUR ---
Dr Street wanted Dr Therese Adrian notified of the CT results and wants her to notate what her recommendations are based on CT results. LVM at Dr Adrian's office.
[2019-03-16] MEDS ORDERED: traMADol 50 MG TABLET PO PRN (14:15)
[2019-03-16 15:00] VITALS: BP 145/67
--- NOTE | 2019-03-16 15:04 | PDOC ---
PROGRESS NOTES Subjective Subjective feels okay . had skin graft right foot. NWB RLE. ct scan of maxillary facial bones showed soft tissue density in sphenoid and ethmoid sinuses Objective Objective Vital Signs Date Time Temp Pulse Resp B/P (MAP) Pulse Ox O2 Delivery O2 Flow Rate FiO2 03/16/19 13:17 Mask 8 03/16/19 13:03 97.6 58 18 138/75 98 97.6 Intake and Output 03/16/19 06:59 Intake Total 1230 ml Balance 1230 ml Intake Oral 1230 ml # Bowel Movements 2 Physical Exam Abdomen: Soft Heart: Regular rate, Normal S1, Normal S2 Extremities: No edema, Other (dry dressing right foot) General: Alert HEENT: Atraumatic Lungs: Clear to auscultation Neuro: Normal speech Psych/Mental Status: Mental status NL Skin: No rashes Assessment Assessment Problems1. Acute hypoxic and hypercarbic respiratory failure. suspect acute on chronic diastolic chf compensated 2. Obstructive sleep apnea. 3. Chronic right foot wound. wound vac applied 4. End-stage renal disease, on hemodialysis. 5. Diabetes mellitus type 2. 6. Peripheral arterial disease. 7. Anemia of chronic kidney disease. 8. Hyperlipidemia. 9. Morbid obesity. 10. Severe protein-calorie malnutrition. opacification of sphenoid sinus. soft tissue density in sphenoid and ethmoid sinuses oropharyngeal dysphagia skin graft right TMA 03/16/19 Medical Problems: (1) End stage heart failure Status: Acute Plan Plan of Care NWB RLE discussed with nurse to contact dr. Adrian [facility] about abnormal ct scan maxillary -facial bones MRI brain not done yet dialysis tomorrow return to [place] tomorrow after dialysis Comment Review of Relevant I have reviewed the following items simeon (where applicable) has been applied. Labs Laboratory Tests Test 03/14/19 16:27 03/14/19 20:33 03/15/19 07:23 03/15/19 11:29 Glucose (Fingerstick) 186 mg/dL (70-99) 162 mg/dL (70-99) 139 mg/dL (70-99) 190 mg/dL (70-99) Test 03/15/19 16:23 03/15/19 19:00 03/15/19 20:42 03/16/19 07:09 Glucose (Fingerstick) 248 mg/dL (70-99) 103 mg/dL (70-99) 126 mg/dL (70-99) White Blood Count 6.5 x10^3/uL (4.0-11.0) Red Blood Count 3.23 x10^6/uL (4.30-5.70) Hemoglobin 8.9 g/dL (13.0-17.5) Hematocrit 28.2 % (39.0-53.0) Mean Corpuscular Volume 88 fL (79-100) Mean Corpuscular Hemoglobin 28 pg (25-35) Mean Corpuscular Hemoglobin Concent 32 g/dL (31-37) Red Cell Distribution Width 18.5 % (11.5-14.5) Platelet Count 202 x10^3/uL (140-400) Neutrophils (%) (Auto) 69 % (31-73) Lymphocytes (%) (Auto) 17 % (24-48) Monocytes (%) (Auto) 6 % (0-9) Eosinophils (%) (Auto) 7 % (0-3) Basophils (%) (Auto) 1 % (0-3) Neutrophils # (Auto) 4.4 x10^3uL (1.8-7.7) Lymphocytes # (Auto) 1.1 x10^3/uL (1.0-4.8) Monocytes # (Auto) 0.4 x10^3/uL (0.0-1.1) Eosinophils # (Auto) 0.4 x10^3/uL (0.0-0.7) Basophils # (Auto) 0.1 x10^3/uL (0.0-0.2) Sodium Level 138 mmol/L (136-145) Potassium Level 3.2 mmol/L (3.5-5.1) Chloride Level 98 mmol/L (98-107) Carbon Dioxide Level 30 mmol/L (21-32) Anion Gap 10 (6-14) Blood Urea Nitrogen 28 mg/dL (8-26) Creatinine 3.6 mg/dL (0.7-1.3) Estimated GFR (Cockcroft-Gault) 19.9 Glucose Level 136 mg/dL (70-99) Calcium Level 8.4 mg/dL (8.5-10.1) Test 03/16/19 12:57 Glucose (Fingerstick) 125 mg/dL (70-99) Laboratory Tests Test 03/15/19 16:23 4/17/19 19:00 03/15/19 20:42 03/16/19 07:09 Glucose (Fingerstick) 248 mg/dL (70-99) 103 mg/dL (70-99) 126 mg/dL (70-99) White Blood Count 6.5 x10^3/uL (4.0-11.0) Red Blood Count 3.23 x10^6/uL (4.30-5.70) Hemoglobin 8.9 g/dL (13.0-17.5) Hematocrit 28.2 % (39.0-53.0) Mean Corpuscular Volume 88 fL (79-100) Mean Corpuscular Hemoglobin 28 pg (25-35) Mean Corpuscular Hemoglobin Concent 32 g/dL (31-37) Red Cell Distribution Width 18.5 % (11.5-14.5) Platelet Count 202 x10^3/uL (140-400) Neutrophils (%) (Auto) 69 % (31-73) Lymphocytes (%) (Auto) 17 % (24-48) Monocytes (%) (Auto) 6 % (0-9) Eosinophils (%) (Auto) 7 % (0-3) Basophils (%) (Auto) 1 % (0-3) Neutrophils # (Auto) 4.4 x10^3uL (1.8-7.7) Lymphocytes # (Auto) 1.1 x10^3/uL (1.0-4.8) Monocytes # (Auto) 0.4 x10^3/uL (0.0-1.1) Eosinophils # (Auto) 0.4 x10^3/uL (0.0-0.7) Basophils # (Auto) 0.1 x10^3/uL (0.0-0.2) Sodium Level 138 mmol/L (136-145) Potassium Level 3.2 mmol/L (3.5-5.1) Chloride Level 98 mmol/L (98-107) Carbon Dioxide Level 30 mmol/L (21-32) Anion Gap 10 (6-14) Blood Urea Nitrogen 28 mg/dL (8-26) Creatinine 3.6 mg/dL (0.7-1.3) Estimated GFR (Cockcroft-Gault) 19.9 Glucose Level 136 mg/dL (70-99) Calcium Level 8.4 mg/dL (8.5-10.1) Test 03/16/19 12:57 Glucose (Fingerstick) 125 mg/dL (70-99) Medications Current Medications Furosemide (Lasix) 40 mg 1X ONCE IVP Last administered on 03/13/19 02:56; Start 03/13/19 at 03:00; Stop 03/13/19 at 03:01; Status DC Albuterol/ Ipratropium (Duoneb) 3 ml RTQID NEB Last administered on 03/14/19 07:37; Start 03/13/19 at 08:00; Stop 03/14/19 at 07:59; Status DC Allopurinol (Zyloprim) 100 mg DAILY PO Last administered on 03/15/19 10:59; Start 03/13/19 at 09:00 Aspirin (Children'S Aspirin) 81 mg DAILY PO Last administered on 03/15/19 10: 59; Start 03/13/19 at 09:00 Atorvastatin Calcium (Lipitor) 40 mg HS PO Last administered on 03/15/19 21:10 ; Start 03/13/19 at 21:00 Clopidogrel Bisulfate (Plavix) 75 mg DAILY PO Last administered on 03/15/19 10 :59; Start 03/13/19 at 09:00 Cyanocobalamin (Vitamin B-12) 1,000 mcg DAILY PO Last administered on 10:59; Start 03/13/19 at 09:00 Guaifenesin (MUCINEX ER with DM) 1 tab PRN Q12HRS PRN PO COUGH Last administered on 03/15/19 06:05; Start 03/13/19 at 07:30 Ondansetron HCl (Zofran Odt) 4 mg TIDAC PO Last administered on 03/13/19 08:54 ; Start 03/13/19 at 07:30; Stop 03/13/19 at 10:41; Status DC Vitamin D (Vitamin D3) 1,000 unit DAILY PO Last administered on 03/15/19 10:59 ; Start 03/13/19 at 09:00 Vitamin B Complex/ Vitamin C (Krista-Beatriz) 1 tab DAILY PO Last administered on 10:59; Start 03/13/19 at 09:00 Lactobacillus Rhamnosus (Culturelle) 1 cap BID PO Last administered on at 21:07; Start 03/13/19 at 09:00 Pantoprazole Sodium (Protonix) 40 mg DAILYAC PO Last administered on 03/15/19at 08:27; Start 03/13/19 at 07:30 Sodium Chloride 1,000 ml @ 1,000 mls/hr Q1H PRN IV hypotension; Start 03/13/19 at 08:14; Stop 03/13/19 at 14:13; Status DC Diphenhydramine HCl (Benadryl) 25 mg 1X PRN PRN IV ITCHING; Start 03/13/19 at 08:15; Stop 03/14/19 at 08:14; Status DC Diphenhydramine HCl (Benadryl) 25 mg 1X PRN PRN IV ITCHING; Start 03/13/19 at 08:15; Stop 03/14/19 at 08:14; Status DC Sodium Chloride 1,000 ml @ 400 mls/hr Q2H30M PRN IV PATENCY; Start 03/13/19 at 08:14; Stop 03/13/19 at 20:13; Status DC Info (PHARMACY MONITORING -- do not chart) 1 each PRN DAILY PRN MC SEE COMMENTS ; Start 03/13/19 at 08:15 Ondansetron HCl (Zofran Odt) 4 mg Q6HRS PRN PO NAUSEA/VOMITING; Start 03/13/19 at 10:45 Insulin Human Lispro (HumaLOG) 0-6 UNITS BG 300-39... TIDWMEALS SQ Last administered on 03/15/19at 12:34; Start 03/13/19 at 12:00 Acetaminophen (Tylenol) 650 mg PRN Q6HRS PRN PO MILD PAIN / TEMP Last administered on 03/15/19at 21:09; Start 03/13/19 at 10:30 Magnesium Hydroxide (Milk Of Magnesia) 2,400 mg PRN DAILY PRN PO CONSTIPATION; Start 03/13/19 at 10:30 Darbepoetin Reinaldo (Aranesp) 60 mcg WEEKLYHS SQ Last administered on 03/14/19at 01 :44; Start 03/13/19 at 21:00 Heparin Sodium (Porcine) (Heparin Sodium) 5,000 unit Q8HRS SQ Last administered on 03/15/19at 21:18; Start 03/13/19 at 14:00 Dextrose (Dextrose 50%-Water Syringe) 25 gm STK-MED ONCE IV ; Start 03/13/19 at 18:01; Stop 03/13/19 at 18:02; Status DC Glucose (Insta-Glucose) 15 gm STK-MED ONCE .ROUTE ; Start 03/13/19 at 18:05; Stop 03/13/19 at 18:06; Status DC Dextrose (Dextrose 50%-Water Syringe) 25 gm 1X ONCE IV ; Start 03/13/19 at 18: 15; Stop 03/13/19 at 18:16; Status DC Glucose (Insta-Glucose) 15 gm 1X ONCE PO Last administered on 03/13/19at 18:12 ; Start 03/13/19 at 18:15; Stop 03/13/19 at 18:16; Status DC Glucose (Insta-Glucose) 15 gm PRN Q15MIN PRN PO LOW BLOOD SUGAR Last administered on 03/13/19at 18:34; Start 03/13/19 at 18:30 Dextrose (Dextrose 50%-Water Syringe) 25 gm STK-MED ONCE IV ; Start 03/13/19 at 18:00; Stop 03/14/19 at 07:40; Status DC Barium Sulfate (Varibar Thin Liquid Apple) 148 gm 1X ONCE PO Last administered on 03/14/19at 11:55; Start 03/14/19 at 11:15; Stop 03/14/19 at 11:17 ; Status DC Albuterol/ Ipratropium (Duoneb) 3 ml RTQID NEB Last administered on 03/16/19at 07:30; Start 03/14/19 at 20:00 Albuterol/ Ipratropium (Duoneb) 3 ml 1X ONCE NEB Last administered on at 16:18; Start 03/14/19 at 16:15; Stop 03/14/19 at 16:18; Status DC Sodium Chloride 1,000 ml @ 1,000 mls/hr Q1H PRN IV hypotension; Start 03/15/19 at 07:34; Stop 03/15/19 at 13:33; Status DC Albumin Human 200 ml @ 200 mls/hr 1X PRN PRN IV Hypotension; Start 03/15/19 at 07:45; Stop 03/15/19 at 13:44; Status DC Sodium Chloride 1,000 ml @ 400 mls/hr Q2H30M PRN IV PATENCY; Start 03/15/19 at 07:34; Stop 03/15/19 at 19:33; Status DC Info (PHARMACY MONITORING -- do not chart) 1 each PRN DAILY PRN MC SEE COMMENTS ; Start 03/15/19 at 07:45; Status UNV Info (PHARMACY MONITORING -- do not chart) 1 each PRN DAILY PRN MC SEE COMMENTS ; Start 03/15/19 at 07:45; Status UNV Cefazolin Sodium 1 gm/Sodium Chloride 500 ml @ 500 mls/hr 1X ONCE IRR Last administered on 03/16/19at 12:27; Start 03/16/19 at 06:00; Stop 03/16/19 at 06:59 ; Status DC Iohexol (Omnipaque 300 Mg/ml) 75 ml 1X ONCE IV Last administered on 03/15/19at 12:45; Start 03/15/19 at 12:45; Stop 03/15/19 at 12:46; Status DC Info (CONTRAST GIVEN -- Rx MONITORING) 1 each PRN DAILY PRN MC SEE COMMENTS; Start 03/15/19 at 12:45; Stop 03/17/19 at 12:44 Ondansetron HCl (Zofran) 4 mg PRN Q6HRS PRN IV NAUSEA/VOMITING; Start 03/16/19 at 07:00; Stop 03/17/19 at 06:59 Fentanyl Citrate (Fentanyl 2ml Vial) 25 mcg PRN Q5MIN PRN IV MILD PAIN; Start 03/16/19 at 07:00; Stop 03/17/19 at 06:59 Fentanyl Citrate (Fentanyl 2ml Vial) 50 mcg PRN Q5MIN PRN IV MODERATE TO SEVERE PAIN; Start 03/16/19 at 07:00; Stop 03/17/19 at 06:59 Morphine Sulfate (Morphine Sulfate) 1 mg PRN Q10MIN PRN IV SEVERE PAIN; Start 03/16/19 at 07:00; Stop 03/17/19 at 06:59 Ringer's Solution 1,000 ml @ 30 mls/hr Q24H IV ; Start 03/16/19 at 07:00; Stop 03/16/19 at 11:37; Status DC Lidocaine HCl (Xylocaine-Mpf 1% 2ml Vial) 2 ml PRN 1X PRN ID PRIOR TO IV START ; Start 03/16/19 at 07:00; Stop 03/17/19 at 06:59 Hydromorphone HCl (Dilaudid) 0.5 mg PRN Q10MIN PRN IV SEV PAIN, Second choice; Start 03/16/19 at 07:00; Stop 03/17/19 at 06:59 Prochlorperazine Edisylate (Compazine) 5 mg PACU PRN PRN IV NAUSEA, MRX1; Start 03/16/19 at 07:00; Stop 03/16/19 at 20:00 Sodium Chloride 1,000 ml @ 1,000 mls/hr Q1H PRN IV hypotension; Start 03/15/19 at 16:00; Stop 03/15/19 at 21:59; Status DC Sodium Chloride 1,000 ml @ 400 mls/hr Q2H30M PRN IV PATENCY; Start 03/15/19 at 16:00; Stop 03/16/19 at 03:59; Status DC Propofol 20 ml @ As Directed STK-MED ONCE IV ; Start 03/16/19 at 11:00; Stop at 11:01; Status DC Dexamethasone Sodium Phosphate (Decadron) 20 mg STK-MED ONCE .ROUTE ; Start at 11:00; Stop 03/16/19 at 11:01; Status DC Lidocaine HCl (Lidocaine Pf 2% Vial) 5 ml STK-MED ONCE .ROUTE ; Start 03/16/19 at 11:00; Stop 03/16/19 at 11:01; Status DC Ondansetron HCl (Zofran) 4 mg STK-MED ONCE .ROUTE ; Start 03/16/19 at 11:00; Stop 03/16/19 at 11:01; Status DC Cefazolin Sodium/ Dextrose 50 ml @ 100 mls/hr 1X ONCE IV Last administered on 03/16/19at 11:41; Start 03/16/19 at 11:15; Stop 03/16/19 at 11:44; Status DC Bupivacaine HCl/ Epinephrine Bitart (Sensorcain-Mpf Epi 0.5%-1:[id number]) 30 ml STK -MED ONCE .ROUTE ; Start 03/16/19 at 10:24; Stop 03/16/19 at 11:24; Status DC Mineral Oil (Muri-Lube) 10 ml STK-MED ONCE MC Last administered on 03/16/19at 12 :19; Start 03/16/19 at 10:24; Stop 03/16/19 at 11:25; Status DC Lidocaine HCl (Xylocaine 1% Pf 30ml Vial) 30 ml STK-MED ONCE .ROUTE ; Start at 10:24; Stop 03/16/19 at 11:25; Status DC Sodium Chloride 1,000 ml @ 0 mls/hr Q0M IV ; Start 03/16/19 at 11:30 Lidocaine/ Epinephrine (LIDOCAINE 1%-EPI 1:100,000 Multi-Dose) 20 ml STK-MED ONCE .ROUTE Last administered on 03/16/19at 12:17; Start 03/16/19 at 10:58; Stop 03/16/19 at 11:58; Status DC Cephalexin HCl (Keflex) 500 mg BID PO ; Start 03/16/19 at 21:00; Stop 03/30/19 at 20:59 Sevoflurane (Ultane) 30 ml STK-MED ONCE IH ; Start 03/16/19 at 12:43; Stop 03/16 at 12:44; Status DC Mineral Oil (Muri-Lube) 10 ml STK-MED ONCE MC ; Start 03/16/19 at 11:57; Stop at 12:57; Status DC Acetaminophen (Tylenol) 500 mg QID PO ; Start 03/16/19 at 17:00 Tramadol HCl (Ultram) 25 mg PRN Q6HRS PRN PO MILD TO MODERATE PAIN; Start 03/16 at 14:15 Active Scripts Active Metoclopramide Hcl 5 Mg Tablet 5 Mg PO TIDACHC Ondansetron Odt (Ondansetron) 4 Mg Tab.rapdis 4 Mg PO TIDAC Tylenol (Acetaminophen) 325 Mg Tablet 325 Mg PO QID 30 Days Humalog (Insulin Lispro) 100 Unit/1 Ml Insuln.pen 0 Units SQ TIDWMEALS 30 Days BG 150-199= 1 units 200-299= 2 units 300-399= 4 units 400-499= 6 units ac tid sliding scale Reported Duoneb 0.5-3(2.5) Mg/3 Ml (Albuterol/Ipratropium) 3 Ml Ampul.neb 3 Ml NEB PRN Q4HRS PRN Senna-Docusate Sodium Tablet (Sennosides/Docusate Sodium) 1 Each Tablet 2 Each PO PRN QHS PRN Mucinex Dm Er 600-30 Mg Tablet (Guaifenesin/Dextromethorphan) 1 Each Tab.er.12h 1 Tab PO PRN Q12HRS Milk Of Magnesia (Magnesium Hydroxide) 400 Mg/5 Ml Oral.susp 400 Mg PO PRN DAILY PRN Lac-Hydrin Five (Ammonium Lactate) 226 Gm Lotion 226 Gm TP BID Dulcolax (Bisacodyl) 10 Mg Supp.rect 10 Mg RC PRN DAILY PRN Benadryl Allergy (Diphenhydramine Hcl) 12.5 Mg/5 Ml Liquid 25 Mg PO PRN Q6HRS PRN Vitamin B-12 (Cyanocobalamin (Vitamin B-12)) 1,000 Mcg Tablet 1 Tab PO DAILY Allopurinol 100 Mg Tablet 1 Tab PO DAILY Renal Caps Softgel (Folic Acid/Vitamin B Comp W-C) 1 Mg Capsule 1 Cap PO DAILY Acidophilus Lactobacilli (Lactobacillus Acidophilus) 1 Each Capsule 1 Each PO BID Protonix (Pantoprazole Sodium) 20 Mg Tablet.dr 40 Mg PO DAILY Renvela (Sevelamer Carbonate) 800 Mg Tablet 800 Mg PO TIDWMEALS Tylenol (Acetaminophen) 325 Mg Tablet 1 Tab PO PRN Q4HRS Aspirin 81 Mg Tab.chew 81 Mg PO DAILY Lipitor (Atorvastatin Calcium) 40 Mg Tablet 40 Mg PO HS Clopidogrel (Clopidogrel Bisulfate) 75 Mg Tablet 75 Mg PO DAILY Vitamin D-3 (Cholecalciferol (Vitamin D3)) 2,000 Unit Capsule 1,000 Unit PO DAILY Vitals/I & O Vital Sign - Last 24 Hours 03/15/19 03/15/19 03/15/19 03/15/19 15:00 15:39 19:20 20:00 Temp 97.5 97.5 Pulse 60 Resp 17 B/P (MAP) 125/65 (85) Pulse Ox 95 99 O2 Delivery Nasal Cannula Nasal Cannula Nasal Cannula Nasal Cannula O2 Flow Rate 4.0 2.0 2.0 2.0 03/15/19 03/16/19 03/16/19 03/16/19 23:00 03:00 07:00 07:36 Temp 97.7 97.9 98.7 97.7 97.9 98.7 Pulse 59 61 17 Resp 18 18 18 B/P (MAP) 129/51 (77) 147/71 (96) 134/66 (88) Pulse Ox 93 93 100 98 O2 Delivery Room Air Room Air Room Air Nasal Cannula O2 Flow Rate 2.0 03/16/19 03/16/19 03/16/19 03/16/19 08:00 08:00 11:06 12:47 Temp 97 97.0 Pulse 63 Resp 24 B/P (MAP) 134/65 Pulse Ox 100 O2 Delivery Nasal Cannula Nasal Cannula Nasal Cannula Mask O2 Flow Rate 2.0 2.0 2.0 8 03/16/19 03/16/19 03/16/19 12:47 13:03 13:17 Temp 97.6 97.6 97.6 97.6 Pulse 65 58 Resp 18 18 B/P (MAP) 157/75 138/75 Pulse Ox 98 98 O2 Delivery Simple Mask Simple Mask Mask O2 Flow Rate 8 8 8 Intake and Output 03/15/19 03/15/19 03/16/19 14:59 22:59 06:59 Intake Total 440 ml 620 ml 170 ml Balance 440 ml 620 ml 170 ml KIMI TIDWELL MD Mar 16, 2019 15:04
--- NOTE | 2019-03-16 15:08 | OP ---
DATE OF SURGERY: 03/16/2019 PREOPERATIVE DIAGNOSIS: Forefoot amputation, open, right. POSTOPERATIVE DIAGNOSIS: Forefoot amputation, open, right. PROCEDURE PERFORMED: Right forefoot debridement including bone and soft tissue. Split thickness skin graft from the right thigh to the right leg. ANESTHESIA: General with 1% local with epinephrine infiltrated into the right thigh for skin graft harvest. INDICATIONS: This is a 78-year-old diabetic male with known peripheral vascular disease. He has had a previous open transmetatarsal amputation of the right foot. He has been treated with wound VAC therapy since his initial operation. The wound is granulating throughout the majority of the wound. There is also a small lateral malleolar wound. Recommendation was for wound debridement and skin grafting. FINDINGS: The patient had healthy granulation tissue throughout. There was a little bit of marginally viable tissue beneath the inferior most skin flap. In addition, the first metatarsal shaft was still sticking into the wound and was desiccated at its distal most aspect. This required significant debridement to get to healthy bleeding tissue and the residual bone was not get covered with granulation tissue. A ____ split thickness skin graft was harvested from the right anterior lateral aspect of the thigh, meshed 1.5:1. DESCRIPTION OF PROCEDURE: The patient was given general anesthetic, prepped and draped in sterile fashion. Attention was first directed to the skin graft donor site. This was infiltrated with 1% Xylocaine with epinephrine. The area was marked and a ____ split thickness skin graft was harvested. Sterile dressing was placed over the top of this. That skin graft was then meshed 1.5:1 and placed on the back table. The right forefoot wound was debrided with a curette. There was some residual metatarsal shaft sticking into the wound and sticking out beyond the granulation tissue for a distance of about 4 mm. This was debrided back into healthy tissue, which left a little bit of a depression of approximately 6 mm. Once this had been accomplished, the wound was debrided with a curette. The skin graft was meshed 1.5:1. It was placed over the top of the wound and held in place with a bolster of Xeroform gauze, oil-soaked cotton balls, carl and 2-0 silk suture. The residual additional graft that had been harvested from the anterior thigh was then placed on the lateral ankle ulcer after that wound had been debrided with a curette. That was held in place with Steri-Strips and a gauze wrap. The patient tolerated the procedure well. Dressings were applied. The patient moved from the operating to recovery room in satisfactory stable condition. YA HELLER MD DR: GIAN/dianna JOB#: [id number] / [id number]
[2019-03-16] MEDS ORDERED: CEPH250C PO (15:15)
[2019-03-16] MEDS ORDERED: ONDA4TAB12 PO (15:15)
[2019-03-16] MEDS ORDERED: TRAM50TA PO (15:15)
--- NOTE | 2019-03-16 15:18 | SNU/HH DC ---
DISCHARGE ORDERS DISCHARGE INFORMATION: DISCHARGE DATE: Mar 16, 2019 FINAL DIAGNOSIS Problemsacute diastolic chf. skin graft to right TMA. acute hypoxic respiratory failure Medical Problems: (1) End stage heart failure Status: Acute CONDITION ON DISCHARGE: Stable CODE STATUS: Code Status: Full POST DISCHARGE ORDERS: ACTIVITY ORDERS: Activity as tolerated WEIGHT BEARING STATUS: Non weight bearing, Other, see below (no weight bearing RLE) BATHING ORDERS: Shower-keep dressing dry, No Tub Bath until see DIET AFTER DISCHARGE: ada and renal diet. ground meats with gravy and honey thick liquids WOUND/INCISION CARE: Other, see below OTHER ORDERS: hemodialysis every m-w- CHECKS AFTER DISCHARGE: CHECKS AFTER DISCHARGE: Check blood press - daily, Check blood sugar, ac/hs, Weigh Yourself Daily FOLLOW-UP: PHYSICIAN FOLLOW-UP: dr[facility] tid[facility] gomes in 2 weeks ADDITIONAL FOLLOW-UP: dr. moisés bird. abnormal sphenoid sinus LAB ORDERS FOR FOLLOW-UP: see above lab tests TREATMENT/EQUIPMENT ORDERS: ADAPTIVE EQUIPMENT NEEDED: None Physical Therapy For: Evalulation/Treatment Occupational Therapy For: Evaluation/Treatment DISCHARGE MEDICATIONS: Home Meds Active Scripts Tramadol Hcl (TRAMADOL HCL) 50 Mg Tablet, 25 MG PO PRN Q6HRS PRN for MILD TO MODERATE PAIN, #60 TAB Prov:KIMI TIDWELL MD 03/16/19 Cephalexin (CEPHALEXIN) 250 Mg Capsule, 500 MG PO BID for post skin graft for 14 Days, #28 CAP Prov:KIMI TIDWELL MD 03/16/19 Ondansetron (ONDANSETRON ODT) 4 Mg Tab.rapdis, 4 MG PO Q6HRS PRN for NAUSEA/ VOMITING, #30 TAB Prov:KIMI TIDWELL MD 03/16/19 Metoclopramide Hcl (METOCLOPRAMIDE HCL) 5 Mg Tablet, 5 MG PO TIDACHC for nausea , #100 TAB Prov:KIMI TIDWELL MD 01/05/19 Ondansetron (ONDANSETRON ODT) 4 Mg Tab.rapdis, 4 MG PO TIDAC for nausea, #90 TAB Prov:KIMI TIDWELL MD 01/05/19 Acetaminophen (TYLENOL) 325 Mg Tablet, 325 MG PO QID for pain for 30 Days, #120 TAB Prov:KIMI TIDWELL MD 01/05/19 Insulin Lispro (HUMALOG) 100 Unit/1 Ml Insuln.pen, 0 UNITS SQ TIDWMEALS for diabetes for 30 Days, EACH BG 150-199= 1 units 200-299= 2 units 300-399= 4 units 400-499= 6 units ac tid sliding scale Prov:KIMI TIDWELL MD 11/11/18 Reported Medications Ipratropium/Albuterol Sulfate (DUONEB 0.5-3(2.5) MG/3 ML) 3 Ml Ampul.neb, 3 ML NEB PRN Q4HRS PRN for WHEEZING, EACH 03/13/19 Sennosides/Docusate Sodium (Senna-Docusate Sodium Tablet) 1 Each Tablet, 2 EACH PO PRN QHS PRN for CONSTIPATION, TAB 03/13/19 Guaifenesin/Dextromethorphan (MUCINEX DM ER 600-30 MG TABLET) 1 Each Tab.er.12h , 1 TAB PO PRN Q12HRS for sinus drainage, #20 TAB 03/13/19 Magnesium Hydroxide (MILK OF MAGNESIA) 400 Mg/5 Ml Oral.susp, 400 MG PO PRN DAILY PRN for CONSTIPATION, MISC 03/13/19 Ammonium Lactate (Lac-Hydrin Five) 226 Gm Lotion, 226 GM TP BID for itching, MISC 03/13/19 Bisacodyl (DULCOLAX) 10 Mg Supp.rect, 10 MG RC PRN DAILY PRN for CONSTIPATION, SUPP.RECT 0 Refills 03/13/19 Diphenhydramine Hcl (BENADRYL ALLERGY) 12.5 Mg/5 Ml Liquid, 25 MG PO PRN Q6HRS PRN for ITCHING, LIQUID 03/13/19 Cyanocobalamin (Vitamin B-12) (VITAMIN B-12) 1,000 Mcg Tablet, 1 TAB PO DAILY for supplement, #30 TAB 2 Refills 11/24/18 Allopurinol (ALLOPURINOL) 100 Mg Tablet, 1 TAB PO DAILY for gout, #90 TAB 3 Refills 11/24/18 Folic Acid/Vitamin B Comp W-C (RENAL CAPS SOFTGEL) 1 Mg Capsule, 1 CAP PO DAILY for renal vitamin, #90 CAP 3 Refills 11/24/18 Lactobacillus Acidophilus (Acidophilus Lactobacilli) 1 Each Capsule, 1 EACH PO BID for prophylaxis, CAP 11/24/18 Pantoprazole Sodium (PROTONIX) 20 Mg Tablet.dr, 40 MG PO DAILY for GERD, TAB 11/24/18 Sevelamer Carbonate (RENVELA) 800 Mg Tablet, 800 MG PO TIDWMEALS for ESRD, TAB 11/24/18 Acetaminophen (TYLENOL) 325 Mg Tablet, 1 TAB PO PRN Q4HRS for pain/temp, #30 TAB 11/24/18 Aspirin (ASPIRIN) 81 Mg Tab.chew, 81 MG PO DAILY for prophylaxis, TAB.CHEW 11/24/18 Atorvastatin Calcium (LIPITOR) 40 Mg Tablet, 40 MG PO HS for FOR CHOLESTEROL, # 30 TAB 0 Refills 11/24/18 Clopidogrel Bisulfate (CLOPIDOGREL) 75 Mg Tablet, 75 MG PO DAILY for TO PREVENT BLOOD CLOTS, #30 TAB 0 Refills 11/24/18 Cholecalciferol (Vitamin D3) (VITAMIN D-3) 2,000 Unit Capsule, 1000 UNIT PO DAILY, CAP 09/13/17 KIMI TIDWELL MD Mar 16, 2019 15:18
--- NOTE | 2019-03-16 15:26 | PDOC ---
Provider Note Provider Note discharge summary dictated # [id number] KIMI TIDWELL MD Mar 16, 2019 15:26
--- NOTE | 2019-03-16 17:38 | PDOC ---
PROGRESS NOTES Subjective Subjective 78 year old male admitted to hospital for other medical issues and found to have incidental finding of right posterior ethmoid/sphenoid opacification on CT imaging. Patient was uncooperative with nasal endoscopy. He is still admitted currently but planned discharge tomorrow after dialysis. Objective Objective Vital Signs Date Time Temp Pulse Resp B/P (MAP) Pulse Ox O2 Delivery O2 Flow Rate FiO2 03/16/19 15:49 98 Nasal Cannula 2.0 03/16/19 15:00 98.8 70 17 145/67 (93) 98.8 Intake and Output 03/16/19 07:00 Intake Total 1230 ml Balance 1230 ml Intake Oral 1230 ml # Bowel Movements 2 Physical Exam Physical Exam General: Patient is poor historian. Not oriented at this time (general anesthesia earlier today), pleasant but only half follows commands Eyes: EOMI, PERRL Nose: septum deviated to right, crusting intranasally. No visible mass CT Sinus (03/15/19: Complete opacification of the right sphenoid sinus is present. Extension of soft tissue density into the right posterior ethmoid air cells noted. Extension into the superior aspect of the right nasal cavity is present. Overall morphology is similar upon correlation with previous CT of the head without contrast exam. Slight enhancement of this process is present with Hounsfield units of 60 as compared to previous exam without contrast also units of 48. Bony resorption at the anterior aspect of the right sphenoid sinus anterior wall superomedially is noted. Old right medial orbital wall fractures present. Diagnosis Other right sphenoid sinusitis. Right nasal cavity mass Assessment Assessment 78 year old male admitted to the hospital currently with multiple co- morbidities. Patient with incidental finding of right sphenoid sinusitis and possible right nasal cavity mass on CT sinus imaging. Patient is not cooperative with nasal endoscopy at bedside. Problems Medical Problems: (1) End stage heart failure Status: Acute Plan Plan of Care 1. Patient will require further work up of right nasal cavity mass after hospital discharge. Differential includes infectious process such as allergic fungal sinusitis with polyps vs malignant tumor. This requires MRI imaging prior to biopsy. Unable to obtain as inpatient and so will need to arrange after discharge. 2. Plan to follow up with me in office at [address] [facility], [facility]. Please have detention staff call [phone] to arrange follow up after MRI imaging as outpatient. Plan to readmit after imaging completed and healing well from recent surgery for possible nasal endoscopy with biopsy. Comment Review of Relevant I have reviewed the following items simeon (where applicable) has been applied. Labs Laboratory Tests Test 03/14/19 20:33 03/15/19 07:23 03/15/19 11:29 03/15/19 16:23 Glucose (Fingerstick) 162 mg/dL (70-99) 139 mg/dL (70-99) 190 mg/dL (70-99) 248 mg/dL (70-99) Test 03/15/19 19:00 03/15/19 20:42 03/16/19 07:09 03/16/19 12:57 White Blood Count 6.5 x10^3/uL (4.0-11.0) Red Blood Count 3.23 x10^6/uL (4.30-5.70) Hemoglobin 8.9 g/dL (13.0-17.5) Hematocrit 28.2 % (39.0-53.0) Mean Corpuscular Volume 88 fL (79-100) Mean Corpuscular Hemoglobin 28 pg (25-35) Mean Corpuscular Hemoglobin Concent 32 g/dL (31-37) Red Cell Distribution Width 18.5 % (11.5-14.5) Platelet Count 202 x10^3/uL (140-400) Neutrophils (%) (Auto) 69 % (31-73) Lymphocytes (%) (Auto) 17 % (24-48) Monocytes (%) (Auto) 6 % (0-9) Eosinophils (%) (Auto) 7 % (0-3) Basophils (%) (Auto) 1 % (0-3) Neutrophils # (Auto) 4.4 x10^3uL (1.8-7.7) Lymphocytes # (Auto) 1.1 x10^3/uL (1.0-4.8) Monocytes # (Auto) 0.4 x10^3/uL (0.0-1.1) Eosinophils # (Auto) 0.4 x10^3/uL (0.0-0.7) Basophils # (Auto) 0.1 x10^3/uL (0.0-0.2) Sodium Level 138 mmol/L (136-145) Potassium Level 3.2 mmol/L (3.5-5.1) Chloride Level 98 mmol/L (98-107) Carbon Dioxide Level 30 mmol/L (21-32) Anion Gap 10 (6-14) Blood Urea Nitrogen 28 mg/dL (8-26) Creatinine 3.6 mg/dL (0.7-1.3) Estimated GFR (Cockcroft-Gault) 19.9 Glucose Level 136 mg/dL (70-99) Calcium Level 8.4 mg/dL (8.5-10.1) Glucose (Fingerstick) 103 mg/dL (70-99) 126 mg/dL (70-99) 125 mg/dL (70-99) Test 03/16/19 16:23 Glucose (Fingerstick) 244 mg/dL (70-99) Laboratory Tests Test 03/15/19 19:00 03/15/19 20:42 03/16/19 07:09 03/16/19 12:57 White Blood Count 6.5 x10^3/uL (4.0-11.0) Red Blood Count 3.23 x10^6/uL (4.30-5.70) Hemoglobin 8.9 g/dL (13.0-17.5) Hematocrit 28.2 % (39.0-53.0) Mean Corpuscular Volume 88 fL (79-100) Mean Corpuscular Hemoglobin 28 pg (25-35) Mean Corpuscular Hemoglobin Concent 32 g/dL (31-37) Red Cell Distribution Width 18.5 % (11.5-14.5) Platelet Count 202 x10^3/uL (140-400) Neutrophils (%) (Auto) 69 % (31-73) Lymphocytes (%) (Auto) 17 % (24-48) Monocytes (%) (Auto) 6 % (0-9) Eosinophils (%) (Auto) 7 % (0-3) Basophils (%) (Auto) 1 % (0-3) Neutrophils # (Auto) 4.4 x10^3uL (1.8-7.7) Lymphocytes # (Auto) 1.1 x10^3/uL (1.0-4.8) Monocytes # (Auto) 0.4 x10^3/uL (0.0-1.1) Eosinophils # (Auto) 0.4 x10^3/uL (0.0-0.7) Basophils # (Auto) 0.1 x10^3/uL (0.0-0.2) Sodium Level 138 mmol/L (136-145) Potassium Level 3.2 mmol/L (3.5-5.1) Chloride Level 98 mmol/L (98-107) Carbon Dioxide Level 30 mmol/L (21-32) Anion Gap 10 (6-14) Blood Urea Nitrogen 28 mg/dL (8-26) Creatinine 3.6 mg/dL (0.7-1.3) Estimated GFR (Cockcroft-Gault) 19.9 Glucose Level 136 mg/dL (70-99) Calcium Level 8.4 mg/dL (8.5-10.1) Glucose (Fingerstick) 103 mg/dL (70-99) 126 mg/dL (70-99) 125 mg/dL (70-99) Test 03/16/19 16:23 Glucose (Fingerstick) 244 mg/dL (70-99) Medications Current Medications Furosemide (Lasix) 40 mg 1X ONCE IVP Last administered on 03/13/19 02:56; Start 03/13/19 at 03:00; Stop 03/13/19 at 03:01; Status DC Albuterol/ Ipratropium (Duoneb) 3 ml RTQID NEB Last administered on 03/14/19 07:37; Start 03/13/19 at 08:00; Stop 03/14/19 at 07:59; Status DC Allopurinol (Zyloprim) 100 mg DAILY PO Last administered on 03/15/19at 10:59; Start 03/13/19 at 09:00 Aspirin (Children'S Aspirin) 81 mg DAILY PO Last administered on 03/15/19 10: 59; Start 03/13/19 at 09:00 Atorvastatin Calcium (Lipitor) 40 mg HS PO Last administered on 03/15/19 21:10 ; Start 03/13/19 at 21:00 Clopidogrel Bisulfate (Plavix) 75 mg DAILY PO Last administered on 03/15/19at 10 :59; Start 03/13/19 at 09:00 Cyanocobalamin (Vitamin B-12) 1,000 mcg DAILY PO Last administered on at 10:59; Start 03/13/19 at 09:00 Guaifenesin (MUCINEX ER with DM) 1 tab PRN Q12HRS PRN PO COUGH Last administered on 03/15/19at 06:05; Start 03/13/19 at 07:30 Ondansetron HCl (Zofran Odt) 4 mg TIDAC PO Last administered on 03/13/19at 08:54 ; Start 03/13/19 at 07:30; Stop 03/13/19 at 10:41; Status DC Vitamin D (Vitamin D3) 1,000 unit DAILY PO Last administered on 03/15/19at 10:59 ; Start 03/13/19 at 09:00 Vitamin B Complex/ Vitamin C (Krista-Beatriz) 1 tab DAILY PO Last administered on at 10:59; Start 03/13/19 at 09:00 Lactobacillus Rhamnosus (Culturelle) 1 cap BID PO Last administered on at 21:07; Start 03/13/19 at 09:00 Pantoprazole Sodium (Protonix) 40 mg DAILYAC PO Last administered on 03/15/19at 08:27; Start 03/13/19 at 07:30 Sodium Chloride 1,000 ml @ 1,000 mls/hr Q1H PRN IV hypotension; Start 03/13/19 at 08:14; Stop 03/13/19 at 14:13; Status DC Diphenhydramine HCl (Benadryl) 25 mg 1X PRN PRN IV ITCHING; Start 03/13/19 at 08:15; Stop 03/14/19 at 08:14; Status DC Diphenhydramine HCl (Benadryl) 25 mg 1X PRN PRN IV ITCHING; Start 03/13/19 at 08:15; Stop 03/14/19 at 08:14; Status DC Sodium Chloride 1,000 ml @ 400 mls/hr Q2H30M PRN IV PATENCY; Start 03/13/19 at 08:14; Stop 03/13/19 at 20:13; Status DC Info (PHARMACY MONITORING -- do not chart) 1 each PRN DAILY PRN MC SEE COMMENTS ; Start 03/13/19 at 08:15 Ondansetron HCl (Zofran Odt) 4 mg Q6HRS PRN PO NAUSEA/VOMITING; Start 03/13/19 at 10:45 Insulin Human Lispro (HumaLOG) 0-6 UNITS BG 300-39... TIDWMEALS SQ Last administered on 03/15/19 12:34; Start 03/13/19 at 12:00 Acetaminophen (Tylenol) 650 mg PRN Q6HRS PRN PO MILD PAIN / TEMP Last administered on 03/15/19 21:09; Start 03/13/19 at 10:30 Magnesium Hydroxide (Milk Of Magnesia) 2,400 mg PRN DAILY PRN PO CONSTIPATION; Start 03/13/19 at 10:30 Darbepoetin Reinaldo (Aranesp) 60 mcg WEEKLYHS SQ Last administered on 03/14/19at 01 :44; Start 03/13/19 at 21:00 Heparin Sodium (Porcine) (Heparin Sodium) 5,000 unit Q8HRS SQ Last administered on 03/15/19 21:18; Start 03/13/19 at 14:00; Stop 03/16/19 at 15:08 ; Status DC Dextrose (Dextrose 50%-Water Syringe) 25 gm STK-MED ONCE IV ; Start 03/13/19 at 18:01; Stop 03/13/19 at 18:02; Status DC Glucose (Insta-Glucose) 15 gm STK-MED ONCE .ROUTE ; Start 03/13/19 at 18:05; Stop 03/13/19 at 18:06; Status DC Dextrose (Dextrose 50%-Water Syringe) 25 gm 1X ONCE IV ; Start 03/13/19 at 18: 15; Stop 03/13/19 at 18:16; Status DC Glucose (Insta-Glucose) 15 gm 1X ONCE PO Last administered on 03/13/19at 18:12 ; Start 03/13/19 at 18:15; Stop 03/13/19 at 18:16; Status DC Glucose (Insta-Glucose) 15 gm PRN Q15MIN PRN PO LOW BLOOD SUGAR Last administered on 03/13/19at 18:34; Start 03/13/19 at 18:30 Dextrose (Dextrose 50%-Water Syringe) 25 gm STK-MED ONCE IV ; Start 03/13/19 at 18:00; Stop 03/14/19 at 07:40; Status DC Barium Sulfate (Varibar Thin Liquid Apple) 148 gm 1X ONCE PO Last administered on 03/14/19at 11:55; Start 03/14/19 at 11:15; Stop 03/14/19 at 11:17 ; Status DC Albuterol/ Ipratropium (Duoneb) 3 ml RTQID NEB Last administered on 03/16/19at 15:48; Start 03/14/19 at 20:00 Albuterol/ Ipratropium (Duoneb) 3 ml 1X ONCE NEB Last administered on at 16:18; Start 03/14/19 at 16:15; Stop 03/14/19 at 16:18; Status DC Sodium Chloride 1,000 ml @ 1,000 mls/hr Q1H PRN IV hypotension; Start 03/15/19 at 07:34; Stop 03/15/19 at 13:33; Status DC Albumin Human 200 ml @ 200 mls/hr 1X PRN PRN IV Hypotension; Start 03/15/19 at 07:45; Stop 03/15/19 at 13:44; Status DC Sodium Chloride 1,000 ml @ 400 mls/hr Q2H30M PRN IV PATENCY; Start 03/15/19 at 07:34; Stop 03/15/19 at 19:33; Status DC Info (PHARMACY MONITORING -- do not chart) 1 each PRN DAILY PRN MC SEE COMMENTS ; Start 03/15/19 at 07:45; Status UNV Info (PHARMACY MONITORING -- do not chart) 1 each PRN DAILY PRN MC SEE COMMENTS ; Start 03/15/19 at 07:45; Status UNV Cefazolin Sodium 1 gm/Sodium Chloride 500 ml @ 500 mls/hr 1X ONCE IRR Last administered on 03/16/19at 12:27; Start 03/16/19 at 06:00; Stop 03/16/19 at 06:59 ; Status DC Iohexol (Omnipaque 300 Mg/ml) 75 ml 1X ONCE IV Last administered on 03/15/19at 12:45; Start 03/15/19 at 12:45; Stop 03/15/19 at 12:46; Status DC Info (CONTRAST GIVEN -- Rx MONITORING) 1 each PRN DAILY PRN MC SEE COMMENTS; Start 03/15/19 at 12:45; Stop 03/17/19 at 12:44 Ondansetron HCl (Zofran) 4 mg PRN Q6HRS PRN IV NAUSEA/VOMITING; Start 03/16/19 at 07:00; Stop 03/17/19 at 06:59 Fentanyl Citrate (Fentanyl 2ml Vial) 25 mcg PRN Q5MIN PRN IV MILD PAIN; Start 03/16/19 at 07:00; Stop 03/17/19 at 06:59 Fentanyl Citrate (Fentanyl 2ml Vial) 50 mcg PRN Q5MIN PRN IV MODERATE TO SEVERE PAIN; Start 03/16/19 at 07:00; Stop 03/17/19 at 06:59 Morphine Sulfate (Morphine Sulfate) 1 mg PRN Q10MIN PRN IV SEVERE PAIN; Start 03/16/19 at 07:00; Stop 03/17/19 at 06:59 Ringer's Solution 1,000 ml @ 30 mls/hr Q24H IV ; Start 03/16/19 at 07:00; Stop 03/16/19 at 11:37; Status DC Lidocaine HCl (Xylocaine-Mpf 1% 2ml Vial) 2 ml PRN 1X PRN ID PRIOR TO IV START ; Start 03/16/19 at 07:00; Stop 03/17/19 at 06:59 Hydromorphone HCl (Dilaudid) 0.5 mg PRN Q10MIN PRN IV SEV PAIN, Second choice; Start 03/16/19 at 07:00; Stop 03/17/19 at 06:59 Prochlorperazine Edisylate (Compazine) 5 mg PACU PRN PRN IV NAUSEA, MRX1; Start 03/16/19 at 07:00; Stop 03/16/19 at 20:00 Sodium Chloride 1,000 ml @ 1,000 mls/hr Q1H PRN IV hypotension; Start 03/15/19 at 16:00; Stop 03/15/19 at 21:59; Status DC Sodium Chloride 1,000 ml @ 400 mls/hr Q2H30M PRN IV PATENCY; Start 03/15/19 at 16:00; Stop 03/16/19 at 03:59; Status DC Propofol 20 ml @ As Directed STK-MED ONCE IV ; Start 03/16/19 at 11:00; Stop at 11:01; Status DC Dexamethasone Sodium Phosphate (Decadron) 20 mg STK-MED ONCE .ROUTE ; Start at 11:00; Stop 03/16/19 at 11:01; Status DC Lidocaine HCl (Lidocaine Pf 2% Vial) 5 ml STK-MED ONCE .ROUTE ; Start 03/16/19 at 11:00; Stop 03/16/19 at 11:01; Status DC Ondansetron HCl (Zofran) 4 mg STK-MED ONCE .ROUTE ; Start 03/16/19 at 11:00; Stop 03/16/19 at 11:01; Status DC Cefazolin Sodium/ Dextrose 50 ml @ 100 mls/hr 1X ONCE IV Last administered on 03/16/19at 11:41; Start 03/16/19 at 11:15; Stop 03/16/19 at 11:44; Status DC Bupivacaine HCl/ Epinephrine Bitart (Sensorcain-Mpf Epi 0.5%-[id number]) 30 ml STK -MED ONCE .ROUTE ; Start 03/16/19 at 10:24; Stop 03/16/19 at 11:24; Status DC Mineral Oil (Muri-Lube) 10 ml STK-MED ONCE MC Last administered on 03/16/19at 12 :19; Start 03/16/19 at 10:24; Stop 03/16/19 at 11:25; Status DC Lidocaine HCl (Xylocaine 1% Pf 30ml Vial) 30 ml STK-MED ONCE .ROUTE ; Start at 10:24; Stop 03/16/19 at 11:25; Status DC Sodium Chloride 1,000 ml @ 0 mls/hr Q0M IV ; Start 03/16/19 at 11:30; Stop at 15:08; Status DC Lidocaine/ Epinephrine (LIDOCAINE 1%-EPI 1:100,000 Multi-Dose) 20 ml STK-MED ONCE .ROUTE Last administered on 03/16/19at 12:17; Start 03/16/19 at 10:58; Stop 03/16/19 at 11:58; Status DC Cephalexin HCl (Keflex) 500 mg BID PO ; Start 03/16/19 at 21:00; Stop 03/30/19 at 20:59 Sevoflurane (Ultane) 30 ml STK-MED ONCE IH ; Start 03/16/19 at 12:43; Stop 03/16 at 12:44; Status DC Mineral Oil (Muri-Lube) 10 ml STK-MED ONCE MC ; Start 03/16/19 at 11:57; Stop at 12:57; Status DC Acetaminophen (Tylenol) 500 mg QID PO ; Start 03/16/19 at 17:00 Tramadol HCl (Ultram) 25 mg PRN Q6HRS PRN PO MILD TO MODERATE PAIN; Start 03/16 at 14:15 Heparin Sodium (Porcine) (Heparin Sodium) 5,000 unit Q12HR SQ ; Start 03/16/19 at 21:00 Active Scripts Active Tramadol Hcl 50 Mg Tablet 25 Mg PO PRN Q6HRS PRN Cephalexin 250 Mg Capsule 500 Mg PO BID 14 Days Ondansetron Odt (Ondansetron) 4 Mg Tab.rapdis 4 Mg PO Q6HRS PRN Metoclopramide Hcl 5 Mg Tablet 5 Mg PO TIDACHC Tylenol (Acetaminophen) 325 Mg Tablet 325 Mg PO QID 30 Days Humalog (Insulin Lispro) 100 Unit/1 Ml Insuln.pen 0 Units SQ TIDWMEALS 30 Days BG 150-199= 1 units 200-299= 2 units 300-399= 4 units 400-499= 6 units ac tid sliding scale Reported Duoneb 0.5-3(2.5) Mg/3 Ml (Albuterol/Ipratropium) 3 Ml Ampul.neb 3 Ml NEB PRN Q4HRS PRN Milk Of Magnesia (Magnesium Hydroxide) 400 Mg/5 Ml Oral.susp 400 Mg PO PRN DAILY PRN Lac-Hydrin Five (Ammonium Lactate) 226 Gm Lotion 226 Gm TP BID Benadryl Allergy (Diphenhydramine Hcl) 12.5 Mg/5 Ml Liquid 25 Mg PO PRN Q6HRS PRN Vitamin B-12 (Cyanocobalamin (Vitamin B-12)) 1,000 Mcg Tablet 1 Tab PO DAILY Allopurinol 100 Mg Tablet 1 Tab PO DAILY Renal Caps Softgel (Folic Acid/Vitamin B Comp W-C) 1 Mg Capsule 1 Cap PO DAILY Acidophilus Lactobacilli (Lactobacillus Acidophilus) 1 Each Capsule 1 Each PO BID Protonix (Pantoprazole Sodium) 20 Mg Tablet.dr 40 Mg PO DAILY Renvela (Sevelamer Carbonate) 800 Mg Tablet 800 Mg PO TIDWMEALS Tylenol (Acetaminophen) 325 Mg Tablet 1 Tab PO PRN Q4HRS Aspirin 81 Mg Tab.chew 81 Mg PO DAILY Lipitor (Atorvastatin Calcium) 40 Mg Tablet 40 Mg PO HS Clopidogrel (Clopidogrel Bisulfate) 75 Mg Tablet 75 Mg PO DAILY Vitamin D-3 (Cholecalciferol (Vitamin D3)) 2,000 Unit Capsule 1,000 Unit PO DAILY Vitals/I & O Vital Sign - Last 24 Hours 03/15/19 03/15/19 03/15/19 03/16/19 19:20 20:00 23:00 03:00 Temp 97.7 97.9 97.7 97.9 Pulse 59 61 Resp 18 18 B/P (MAP) 129/51 (77) 147/71 (96) Pulse Ox 93 93 O2 Delivery Nasal Cannula Nasal Cannula Room Air Room Air O2 Flow Rate 2.0 2.0 03/16/19 03/16/19 03/16/19 03/16/19 07:00 07:36 08:00 08:00 Temp 98.7 98.7 Pulse 17 Resp 18 B/P (MAP) 134/66 (88) Pulse Ox 100 98 O2 Delivery Room Air Nasal Cannula Nasal Cannula Nasal Cannula O2 Flow Rate 2.0 2.0 2.0 03/16/19 03/16/19 03/16/19 03/16/19 11:06 12:47 12:47 13:03 Temp 97 97.6 97.6 97.0 97.6 97.6 Pulse 63 65 58 Resp 24 18 18 B/P (MAP) 134/65 157/75 138/75 Pulse Ox 100 98 98 O2 Delivery Nasal Cannula Mask Simple Mask Simple Mask O2 Flow Rate 2.0 8 8 8 03/16/19 03/16/19 03/16/19 13:17 15:00 15:49 Temp 98.8 98.8 Pulse 70 Resp 17 B/P (MAP) 145/67 (93) Pulse Ox 92 98 O2 Delivery Mask Room Air Nasal Cannula O2 Flow Rate 8 2.0 Intake and Output 03/15/19 03/15/19 03/16/19 15:00 23:00 07:00 Intake Total 440 ml 620 ml 170 ml Balance 440 ml 620 ml 170 ml ANITA SALAZAR MD Mar 16, 2019 17:38
[2019-03-16] MEDS: ACETAMINOPHEN 500 MG TABLET PO SCH ×2 (17:47→21:22)
[2019-03-16 19:00] VITALS: BP 118/55
--- NOTE | 2019-03-16 21:18 | NUR ---
Pt HS BG was 331. No HS insulin ordered. Contacted Dr. Street, he ordered 2 units of Humalog and no need to recheck till breakfast
[2019-03-16] MEDS: ATORVASTATIN CALCIUM 40 MG TABLET. PO SCH (21:22)
[2019-03-16] MEDS: CEPHALEXIN 250 MG CAPSULE. PO SCH (21:22)
[2019-03-16 23:00] VITALS: BP 116/55
[2019-03-17 03:00] VITALS: BP 127/64
--- NOTE | 2019-03-17 03:57 | DS ---
DATE OF DISCHARGE: 03/17/2019 CONSULTANTS: Include Dr. Arteaga, Dr. Therese Adrian, Dr. Shankar, wound care team and the content writer, Dr. Henning. PROCEDURE: Hemodialysis and also a debridement of skin and bone with placement of a skin graft, donor site right thigh to right forefoot. ASSESSMENT: 1. Acute hypoxic and hypercarbic respiratory failure due to [id number] diastolic congestive heart failure. 2. Nrvrq-[id number] diastolic congestive heart failure. 3. Obstructive sleep apnea. 4. Chronic right foot wound. 5. End-stage renal disease, on hemodialysis. 6. Diabetes mellitus type 2. 7. Peripheral arterial disease. 8. Anemia of chronic disease. 9. Hyperlipidemia. 10. Morbid obesity. 11. Severe protein-calorie malnutrition. 12. Opacification of the sphenoid sinus with a soft tissue mass seen in the sphenoid sinus and also in the ethmoid sinus. 13. Oropharyngeal dysphagia. 14. Skin graft to the forefoot as he has right transmetatarsal amputation done previously. HOSPITAL COURSE: The patient is a 78-year-old male who [facility] and has end-stage renal disease, on hemodialysis, Mondays, Wednesdays and Fridays with diabetes mellitus type 2 and peripheral arterial disease, anemia of chronic disease, hyperlipidemia, morbid obesity and has a chronic right foot wound with previous osteomyelitis, completed a course of IV antibiotics. He was hypoxic in the jail and had some problem swallowing his secretions. He had an oxygen saturation of 83% on room air in the jail and was sent to the [facility] Emergency Room where he was noted to have [id number] diastolic congestive heart failure and he was started on oxygen and apparently BiPAP and was sent to the intensive care unit. He was weaned off the BiPAP and put on oxygen per nasal cannula. He received IV Lasix and dialysis. His congestive heart failure resolved. He was seen by Cardiology, also seen by Dr. Shankar for Pulmonary, seen by the [facility]. His hypoxia eventually improved. He received hemodialysis and was seen by Dr. Bear for hemodialysis. The patient seen by Dr. Arteaga and underwent a debridement of the soft tissue and bone of his right forefoot and had a flap procedure with a donor site from the right thigh to his right forefoot. He tolerated the procedure well. He also was noted to have opacification of the right sphenoid sinus on a CAT scan of the head and then he had a CAT scan of the maxillofacial area and was noted to have a soft tissue density in the right sphenoid area and also involving the ethmoid sinus. Seen in consultation by the ear, nose and throat doctor, Dr. Therese Adrian. Dr. Adrian also wanted an MRI of the brain, but apparently the pacemaker had to be shut off for that procedure and then turned back on. So I will have the nurse contact Dr. Therese Adrian concerning the findings of the CAT scan of the maxillofacial abnormalities and see what she wants to do. In any case, the patient is nonweightbearing to the right lower extremity following a skin graft. It is anticipated that he will be dismissed to the jail after hemodialysis on Wednesday, 03/17. He will be dismissed on Tylenol 500 mg q.i.d., allopurinol 100 mg every day, aspirin 81 mg every day, atorvastatin 40 mg at bedtime, vitamin D 1000 units every day, Plavix 75 mg every day, vitamin B12 1000 mcg every day, Nephro-Beatriz 1 every day, Humalog insulin sliding scale before meals t.i.d., DuoNeb nebulizer treatments p.r.n., Keflex 500 mg b.i.d. for 14 days, Protonix 40 mg every day and tramadol 25 mg every 6 hours for severe pain. He will be dismissed to the jail tomorrow, 03/17. Follow up with Dr. Arteaga in 2 weeks. Follow up with Dr. Therese Adrian and I will see the patient at the jail. He will be dialyzed on Mondays, Wednesdays, and Fridays. He is nonweightbearing to right lower extremity. He is discharged on a mechanical soft honey thick liquid diet. He was seen by the speech therapist and had a swallow evaluation. He will be on ADA renal type diet also. KIMI TIDWELL MD DR: LOBO/dianna JOB#: [id number] / [id number]
[2019-03-17 07:00] VITALS: BP 139/64
[2019-03-17] MEDS: IPRATRPIUM/ALBUTEROL 0.5/2.5MG 3 ML NEBU. NEB SCH ×3 (07:14→16:00)
[2019-03-17] MEDS ORDERED: INSULIN LISPRO 300 UNITS/3 ML INSULN.PEN. SQ ONE (08:15)
[2019-03-17] MEDS: ACETAMINOPHEN 500 MG TABLET PO SCH ×4 (09:00→18:36)
[2019-03-17] MEDS: ASPIRIN CHEWABLE 81 MG TABLET. PO SCH (09:20)
[2019-03-17] MEDS: CHOLECALCIFEROL (VITAMIN D3) 1,000 UNIT TABLET PO SCH (09:20)
[2019-03-17] MEDS: FOLIC/VIT B COMP W-C (RENAL) TABLET. PO SCH (09:20)
[2019-03-17] MEDS: CYANOCOBALAMIN (VITAMIN B-12) 1,000 MCG TABLET. PO SCH (09:20)
[2019-03-17] MEDS: PANTOPRAZOLE 40 MG TABLET.DR. PO SCH (09:21)
[2019-03-17] MEDS: LACTOBACILLUS RHAMNOSUS GG 1 CAPSULE. PO SCH (09:21)
[2019-03-17] MEDS: CEPHALEXIN 250 MG CAPSULE. PO SCH (09:21)
[2019-03-17] MEDS: CLOPIDOGREL BISULFATE 75 MG TABLET PO SCH (09:21)
[2019-03-17] MEDS: ALLOPURINOL 100 MG TABLET. PO SCH (09:21)
[2019-03-17] MEDS: HEPARIN for SUB-Q USE 5,000 UNIT/ML VIAL. SQ SCH (09:35)
--- NOTE | 2019-03-17 09:54 | NUR ---
Tylenol 500 non admin. Given for pain, pt's pain was tolerable. Pt received 81 mg aspirin.
--- NOTE | 2019-03-17 10:59 | PDOC ---
PROGRESS NOTES Subjective Subjective feels better. ready for dismissal .dr. bird will follow up with abnormal sphenoid and ethomid sinus with possible mass. comfortable. Objective Objective Vital Signs Date Time Temp Pulse Resp B/P (MAP) Pulse Ox O2 Delivery O2 Flow Rate FiO2 03/17/19 07:10 100 Nasal Cannula 2.0 03/17/19 07:00 98.0 60 18 139/64 (89) 98.0 Intake and Output 03/17/19 07:00 Intake Total 660 ml Output Total 110 ml Balance 550 ml Intake Oral 660 ml Output Urine Total 100 ml Estimated Blood Loss 10 ml Physical Exam Abdomen: Soft, Other (obese) Heart: Regular rate, Normal S1, Normal S2 Extremities: No edema General: Alert HEENT: Atraumatic Lungs: Clear to auscultation Neuro: Normal speech Psych/Mental Status: Mental status NL Skin: Other (dry dressing right foot) Assessment Assessment Problems1. Acute hypoxic and hypercarbic respiratory failure. suspect acute on chronic diastolic chf compensated 2. Obstructive sleep apnea. 3. Chronic right foot wound. wound vac applied 4. End-stage renal disease, on hemodialysis. 5. Diabetes mellitus type 2. 6. Peripheral arterial disease. 7. Anemia of chronic kidney disease. 8. Hyperlipidemia. 9. Morbid obesity. 10. Severe protein-calorie malnutrition. opacification of sphenoid sinus. soft tissue density in sphenoid and ethmoid sinuses oropharyngeal dysphagia skin graft right TMA 03/16/19 Medical Problems: (1) End stage heart failure Status: Acute Plan Plan of Care dismiss to longterm follow up vist with dr. moisés bird out patient hemodialysis follow up dr. gomes for skin graft Comment Review of Relevant I have reviewed the following items simeon (where applicable) has been applied. Labs Laboratory Tests Test 03/15/19 11:29 03/15/19 16:23 03/15/19 19:00 03/15/19 20:42 Glucose (Fingerstick) 190 mg/dL (70-99) 248 mg/dL (70-99) 103 mg/dL (70-99) White Blood Count 6.5 x10^3/uL (4.0-11.0) Red Blood Count 3.23 x10^6/uL (4.30-5.70) Hemoglobin 8.9 g/dL (13.0-17.5) Hematocrit 28.2 % (39.0-53.0) Mean Corpuscular Volume 88 fL (79-100) Mean Corpuscular Hemoglobin 28 pg (25-35) Mean Corpuscular Hemoglobin Concent 32 g/dL (31-37) Red Cell Distribution Width 18.5 % (11.5-14.5) Platelet Count 202 x10^3/uL (140-400) Neutrophils (%) (Auto) 69 % (31-73) Lymphocytes (%) (Auto) 17 % (24-48) Monocytes (%) (Auto) 6 % (0-9) Eosinophils (%) (Auto) 7 % (0-3) Basophils (%) (Auto) 1 % (0-3) Neutrophils # (Auto) 4.4 x10^3uL (1.8-7.7) Lymphocytes # (Auto) 1.1 x10^3/uL (1.0-4.8) Monocytes # (Auto) 0.4 x10^3/uL (0.0-1.1) Eosinophils # (Auto) 0.4 x10^3/uL (0.0-0.7) Basophils # (Auto) 0.1 x10^3/uL (0.0-0.2) Sodium Level 138 mmol/L (136-145) Potassium Level 3.2 mmol/L (3.5-5.1) Chloride Level 98 mmol/L (98-107) Carbon Dioxide Level 30 mmol/L (21-32) Anion Gap 10 (6-14) Blood Urea Nitrogen 28 mg/dL (8-26) Creatinine 3.6 mg/dL (0.7-1.3) Estimated GFR (Cockcroft-Gault) 19.9 Glucose Level 136 mg/dL (70-99) Calcium Level 8.4 mg/dL (8.5-10.1) Test 03/16/19 07:09 03/16/19 12:57 03/16/19 16:23 03/16/19 20:52 Glucose (Fingerstick) 126 mg/dL (70-99) 125 mg/dL (70-99) 244 mg/dL (70-99) 331 mg/dL (70-99) Test 03/17/19 07:27 Glucose (Fingerstick) 198 mg/dL (70-99) Laboratory Tests Test 03/16/19 12:57 4/18/19 16:23 03/16/19 20:52 03/17/19 07:27 Glucose (Fingerstick) 125 mg/dL (70-99) 244 mg/dL (70-99) 331 mg/dL (70-99) 198 mg/dL (70-99) Medications Current Medications Furosemide (Lasix) 40 mg 1X ONCE IVP Last administered on 03/13/19 02:56; Start 03/13/19 at 03:00; Stop 03/13/19 at 03:01; Status DC Albuterol/ Ipratropium (Duoneb) 3 ml RTQID NEB Last administered on 03/14/19 07:37; Start 03/13/19 at 08:00; Stop 03/14/19 at 07:59; Status DC Allopurinol (Zyloprim) 100 mg DAILY PO Last administered on 03/17/19 09:21; Start 03/13/19 at 09:00 Aspirin (Children'S Aspirin) 81 mg DAILY PO Last administered on 03/17/19 09: 20; Start 03/13/19 at 09:00 Atorvastatin Calcium (Lipitor) 40 mg HS PO Last administered on 03/16/19 21:22 ; Start 03/13/19 at 21:00 Clopidogrel Bisulfate (Plavix) 75 mg DAILY PO Last administered on 03/17/19 09 :21; Start 03/13/19 at 09:00 Cyanocobalamin (Vitamin B-12) 1,000 mcg DAILY PO Last administered on 09:20; Start 03/13/19 at 09:00 Guaifenesin (MUCINEX ER with DM) 1 tab PRN Q12HRS PRN PO COUGH Last administered on 03/15/19 06:05; Start 03/13/19 at 07:30 Ondansetron HCl (Zofran Odt) 4 mg TIDAC PO Last administered on 03/13/19 08:54 ; Start 03/13/19 at 07:30; Stop 03/13/19 at 10:41; Status DC Vitamin D (Vitamin D3) 1,000 unit DAILY PO Last administered on 03/17/19 09:20 ; Start 03/13/19 at 09:00 Vitamin B Complex/ Vitamin C (Krista-Beatriz) 1 tab DAILY PO Last administered on at 09:20; Start 03/13/19 at 09:00 Lactobacillus Rhamnosus (Culturelle) 1 cap BID PO Last administered on at 09:21; Start 03/13/19 at 09:00 Pantoprazole Sodium (Protonix) 40 mg DAILYAC PO Last administered on 03/17/19at 09:21; Start 03/13/19 at 07:30 Sodium Chloride 1,000 ml @ 1,000 mls/hr Q1H PRN IV hypotension; Start 03/13/19 at 08:14; Stop 03/13/19 at 14:13; Status DC Diphenhydramine HCl (Benadryl) 25 mg 1X PRN PRN IV ITCHING; Start 03/13/19 at 08:15; Stop 03/14/19 at 08:14; Status DC Diphenhydramine HCl (Benadryl) 25 mg 1X PRN PRN IV ITCHING; Start 03/13/19 at 08:15; Stop 03/14/19 at 08:14; Status DC Sodium Chloride 1,000 ml @ 400 mls/hr Q2H30M PRN IV PATENCY; Start 03/13/19 at 08:14; Stop 03/13/19 at 20:13; Status DC Info (PHARMACY MONITORING -- do not chart) 1 each PRN DAILY PRN MC SEE COMMENTS ; Start 03/13/19 at 08:15 Ondansetron HCl (Zofran Odt) 4 mg Q6HRS PRN PO NAUSEA/VOMITING; Start 03/13/19 at 10:45 Insulin Human Lispro (HumaLOG) 0-6 UNITS BG 300-39... TIDWMEALS SQ Last administered on 03/16/19at 21:36; Start 03/13/19 at 12:00 Acetaminophen (Tylenol) 650 mg PRN Q6HRS PRN PO MILD PAIN / TEMP Last administered on 03/15/19at 21:09; Start 03/13/19 at 10:30 Magnesium Hydroxide (Milk Of Magnesia) 2,400 mg PRN DAILY PRN PO CONSTIPATION; Start 03/13/19 at 10:30 Darbepoetin Reinaldo (Aranesp) 60 mcg WEEKLYHS SQ Last administered on 03/14/19at 01 :44; Start 03/13/19 at 21:00 Heparin Sodium (Porcine) (Heparin Sodium) 5,000 unit Q8HRS SQ Last administered on 03/15/19at 21:18; Start 03/13/19 at 14:00; Stop 03/16/19 at 15:08 ; Status DC Dextrose (Dextrose 50%-Water Syringe) 25 gm STK-MED ONCE IV ; Start 03/13/19 at 18:01; Stop 03/13/19 at 18:02; Status DC Glucose (Insta-Glucose) 15 gm STK-MED ONCE .ROUTE ; Start 03/13/19 at 18:05; Stop 03/13/19 at 18:06; Status DC Dextrose (Dextrose 50%-Water Syringe) 25 gm 1X ONCE IV ; Start 03/13/19 at 18: 15; Stop 03/13/19 at 18:16; Status DC Glucose (Insta-Glucose) 15 gm 1X ONCE PO Last administered on 03/13/19at 18:12 ; Start 03/13/19 at 18:15; Stop 03/13/19 at 18:16; Status DC Glucose (Insta-Glucose) 15 gm PRN Q15MIN PRN PO LOW BLOOD SUGAR Last administered on 03/13/19at 18:34; Start 03/13/19 at 18:30 Dextrose (Dextrose 50%-Water Syringe) 25 gm STK-MED ONCE IV ; Start 03/13/19 at 18:00; Stop 03/14/19 at 07:40; Status DC Barium Sulfate (Varibar Thin Liquid Apple) 148 gm 1X ONCE PO Last administered on 03/14/19at 11:55; Start 03/14/19 at 11:15; Stop 03/14/19 at 11:17 ; Status DC Albuterol/ Ipratropium (Duoneb) 3 ml RTQID NEB Last administered on 03/17/19at 07:14; Start 03/14/19 at 20:00 Albuterol/ Ipratropium (Duoneb) 3 ml 1X ONCE NEB Last administered on at 16:18; Start 03/14/19 at 16:15; Stop 03/14/19 at 16:18; Status DC Sodium Chloride 1,000 ml @ 1,000 mls/hr Q1H PRN IV hypotension; Start 03/15/19 at 07:34; Stop 03/15/19 at 13:33; Status DC Albumin Human 200 ml @ 200 mls/hr 1X PRN PRN IV Hypotension; Start 03/15/19 at 07:45; Stop 03/15/19 at 13:44; Status DC Sodium Chloride 1,000 ml @ 400 mls/hr Q2H30M PRN IV PATENCY; Start 03/15/19 at 07:34; Stop 03/15/19 at 19:33; Status DC Info (PHARMACY MONITORING -- do not chart) 1 each PRN DAILY PRN MC SEE COMMENTS ; Start 03/15/19 at 07:45; Status UNV Info (PHARMACY MONITORING -- do not chart) 1 each PRN DAILY PRN MC SEE COMMENTS ; Start 03/15/19 at 07:45; Status UNV Cefazolin Sodium 1 gm/Sodium Chloride 500 ml @ 500 mls/hr 1X ONCE IRR Last administered on 03/16/19at 12:27; Start 03/16/19 at 06:00; Stop 03/16/19 at 06:59 ; Status DC Iohexol (Omnipaque 300 Mg/ml) 75 ml 1X ONCE IV Last administered on 03/15/19at 12:45; Start 03/15/19 at 12:45; Stop 03/15/19 at 12:46; Status DC Info (CONTRAST GIVEN -- Rx MONITORING) 1 each PRN DAILY PRN MC SEE COMMENTS; Start 03/15/19 at 12:45; Stop 03/17/19 at 12:44 Ondansetron HCl (Zofran) 4 mg PRN Q6HRS PRN IV NAUSEA/VOMITING; Start 03/16/19 at 07:00; Stop 03/17/19 at 06:59; Status DC Fentanyl Citrate (Fentanyl 2ml Vial) 25 mcg PRN Q5MIN PRN IV MILD PAIN; Start 03/16/19 at 07:00; Stop 03/17/19 at 06:59; Status DC Fentanyl Citrate (Fentanyl 2ml Vial) 50 mcg PRN Q5MIN PRN IV MODERATE TO SEVERE PAIN; Start 03/16/19 at 07:00; Stop 03/17/19 at 06:59; Status DC Morphine Sulfate (Morphine Sulfate) 1 mg PRN Q10MIN PRN IV SEVERE PAIN; Start 03/16/19 at 07:00; Stop 03/17/19 at 06:59; Status DC Ringer's Solution 1,000 ml @ 30 mls/hr Q24H IV ; Start 03/16/19 at 07:00; Stop 03/16/19 at 11:37; Status DC Lidocaine HCl (Xylocaine-Mpf 1% 2ml Vial) 2 ml PRN 1X PRN ID PRIOR TO IV START ; Start 03/16/19 at 07:00; Stop 03/17/19 at 06:59; Status DC Hydromorphone HCl (Dilaudid) 0.5 mg PRN Q10MIN PRN IV SEV PAIN, Second choice; Start 03/16/19 at 07:00; Stop 03/17/19 at 06:59; Status DC Prochlorperazine Edisylate (Compazine) 5 mg PACU PRN PRN IV NAUSEA, MRX1; Start 03/16/19 at 07:00; Stop 03/16/19 at 20:00; Status DC Sodium Chloride 1,000 ml @ 1,000 mls/hr Q1H PRN IV hypotension; Start 03/15/19 at 16:00; Stop 03/15/19 at 21:59; Status DC Sodium Chloride 1,000 ml @ 400 mls/hr Q2H30M PRN IV PATENCY; Start 03/15/19 at 16:00; Stop 03/16/19 at 03:59; Status DC Propofol 20 ml @ As Directed STK-MED ONCE IV ; Start 03/16/19 at 11:00; Stop at 11:01; Status DC Dexamethasone Sodium Phosphate (Decadron) 20 mg STK-MED ONCE .ROUTE ; Start at 11:00; Stop 03/16/19 at 11:01; Status DC Lidocaine HCl (Lidocaine Pf 2% Vial) 5 ml STK-MED ONCE .ROUTE ; Start 03/16/19 at 11:00; Stop 03/16/19 at 11:01; Status DC Ondansetron HCl (Zofran) 4 mg STK-MED ONCE .ROUTE ; Start 03/16/19 at 11:00; Stop 03/16/19 at 11:01; Status DC Cefazolin Sodium/ Dextrose 50 ml @ 100 mls/hr 1X ONCE IV Last administered on 03/16/19at 11:41; Start 03/16/19 at 11:15; Stop 03/16/19 at 11:44; Status DC Bupivacaine HCl/ Epinephrine Bitart (Sensorcain-Mpf Epi 0.5%-[id number]) 30 ml STK -MED ONCE .ROUTE ; Start 03/16/19 at 10:24; Stop 03/16/19 at 11:24; Status DC Mineral Oil (Muri-Lube) 10 ml STK-MED ONCE MC Last administered on 03/16/19at 12 :19; Start 03/16/19 at 10:24; Stop 03/16/19 at 11:25; Status DC Lidocaine HCl (Xylocaine 1% Pf 30ml Vial) 30 ml STK-MED ONCE .ROUTE ; Start at 10:24; Stop 03/16/19 at 11:25; Status DC Sodium Chloride 1,000 ml @ 0 mls/hr Q0M IV ; Start 03/16/19 at 11:30; Stop at 15:08; Status DC Lidocaine/ Epinephrine (LIDOCAINE 1%-EPI 1:100,000 Multi-Dose) 20 ml STK-MED ONCE .ROUTE Last administered on 03/16/19at 12:17; Start 03/16/19 at 10:58; Stop 03/16/19 at 11:58; Status DC Cephalexin HCl (Keflex) 500 mg BID PO Last administered on 03/17/19at 09:21; Start 03/16/19 at 21:00; Stop 03/30/19 at 20:59 Sevoflurane (Ultane) 30 ml STK-MED ONCE IH ; Start 03/16/19 at 12:43; Stop 03/16 at 12:44; Status DC Mineral Oil (Muri-Lube) 10 ml STK-MED ONCE MC ; Start 03/16/19 at 11:57; Stop at 12:57; Status DC Acetaminophen (Tylenol) 500 mg QID PO Last administered on 03/16/19at 21:22; Start 03/16/19 at 17:00 Tramadol HCl (Ultram) 25 mg PRN Q6HRS PRN PO MILD TO MODERATE PAIN Last administered on 03/16/19at 22:27; Start 03/16/19 at 14:15 Heparin Sodium (Porcine) (Heparin Sodium) 5,000 unit Q12HR SQ Last administered on 03/17/19at 09:35; Start 03/16/19 at 21:00 Insulin Human Lispro (HumaLOG) 1 units 1X ONCE SQ Last administered on at 09:36; Start 03/17/19 at 08:15; Stop 03/17/19 at 08:16; Status DC Active Scripts Active Tramadol Hcl 50 Mg Tablet 25 Mg PO PRN Q6HRS PRN Cephalexin 250 Mg Capsule 500 Mg PO BID 14 Days Ondansetron Odt (Ondansetron) 4 Mg Tab.rapdis 4 Mg PO Q6HRS PRN Metoclopramide Hcl 5 Mg Tablet 5 Mg PO TIDACHC Tylenol (Acetaminophen) 325 Mg Tablet 325 Mg PO QID 30 Days Humalog (Insulin Lispro) 100 Unit/1 Ml Insuln.pen 0 Units SQ TIDWMEALS 30 Days BG 150-199= 1 units 200-299= 2 units 300-399= 4 units 400-499= 6 units ac tid sliding scale Reported Duoneb 0.5-3(2.5) Mg/3 Ml (Albuterol/Ipratropium) 3 Ml Ampul.neb 3 Ml NEB PRN Q4HRS PRN Milk Of Magnesia (Magnesium Hydroxide) 400 Mg/5 Ml Oral.susp 400 Mg PO PRN DAILY PRN Lac-Hydrin Five (Ammonium Lactate) 226 Gm Lotion 226 Gm TP BID Benadryl Allergy (Diphenhydramine Hcl) 12.5 Mg/5 Ml Liquid 25 Mg PO PRN Q6HRS PRN Vitamin B-12 (Cyanocobalamin (Vitamin B-12)) 1,000 Mcg Tablet 1 Tab PO DAILY Allopurinol 100 Mg Tablet 1 Tab PO DAILY Renal Caps Softgel (Folic Acid/Vitamin B Comp W-C) 1 Mg Capsule 1 Cap PO DAILY Acidophilus Lactobacilli (Lactobacillus Acidophilus) 1 Each Capsule 1 Each PO BID Protonix (Pantoprazole Sodium) 20 Mg Tablet.dr 40 Mg PO DAILY Renvela (Sevelamer Carbonate) 800 Mg Tablet 800 Mg PO TIDWMEALS Tylenol (Acetaminophen) 325 Mg Tablet 1 Tab PO PRN Q4HRS Aspirin 81 Mg Tab.chew 81 Mg PO DAILY Lipitor (Atorvastatin Calcium) 40 Mg Tablet 40 Mg PO HS Clopidogrel (Clopidogrel Bisulfate) 75 Mg Tablet 75 Mg PO DAILY Vitamin D-3 (Cholecalciferol (Vitamin D3)) 2,000 Unit Capsule 1,000 Unit PO DAILY Vitals/I & O Vital Sign - Last 24 Hours 03/16/19 03/16/19 03/16/19 03/16/19 11:06 12:47 12:47 13:03 Temp 97 97.6 97.6 97.0 97.6 97.6 Pulse 63 65 58 Resp 24 18 18 B/P (MAP) 134/65 157/75 138/75 Pulse Ox 100 98 98 O2 Delivery Nasal Cannula Mask Simple Mask Simple Mask O2 Flow Rate 2.0 8 8 8 03/16/19 03/16/19 03/16/19 03/16/19 13:17 15:00 15:49 19:00 Temp 98.8 97.9 98.8 97.9 Pulse 70 60 Resp 17 18 B/P (MAP) 145/67 (93) 118/55 (76) Pulse Ox 92 98 100 O2 Delivery Mask Room Air Nasal Cannula Room Air O2 Flow Rate 8 2.0 03/16/19 03/16/19 03/16/19 03/16/19 19:45 20:34 22:27 23:00 Temp 97.7 97.7 Pulse 60 Resp 18 B/P (MAP) 116/55 (75) Pulse Ox 99 99 O2 Delivery Mask Nasal Cannula Nasal Cannula Room Air O2 Flow Rate 2.0 2.0 2.0 03/16/19 03/17/19 03/17/19 03/17/19 23:25 00:37 03:00 07:00 Temp 98.1 98.0 98.1 98.0 Pulse 60 60 Resp 18 18 B/P (MAP) 127/64 (85) 139/64 (89) Pulse Ox 98 94 100 O2 Delivery Nasal Cannula BiPAP/CPAP Room Air Room Air O2 Flow Rate 2.0 03/17/19 07:10 Pulse Ox 100 O2 Delivery Nasal Cannula O2 Flow Rate 2.0 Intake and Output 03/16/19 03/16/19 03/17/19 15:00 23:00 07:00 Intake Total 0 ml 240 ml 420 ml Output Total 10 ml 100 ml Balance -10 ml 140 ml 420 ml KIMI TIDWELL MD Mar 17, 2019 10:59
[2019-03-17 11:00] VITALS: BP 122/54
--- NOTE | 2019-03-17 11:39 | PDOC ---
PULMONARY PROGRESS NOTES Subjective no soa Vitals Vital Signs Date Time Temp Pulse Resp B/P (MAP) Pulse Ox O2 Delivery O2 Flow Rate FiO2 03/17/19 11:10 98 Nasal Cannula 2.0 03/17/19 11:00 98.0 61 18 122/54 (76) 98.0 General: Alert, No acute distress HEENT: Other Lungs: Clear Cardiovascular: S1, S2 Abdomen: Soft, Non-tender Extremities: Other (1+edema/ stasis) Labs Laboratory Tests Test 03/15/19 16:23 03/15/19 19:00 03/15/19 20:42 03/16/19 07:09 Glucose (Fingerstick) 248 mg/dL (70-99) 103 mg/dL (70-99) 126 mg/dL (70-99) White Blood Count 6.5 x10^3/uL (4.0-11.0) Red Blood Count 3.23 x10^6/uL (4.30-5.70) Hemoglobin 8.9 g/dL (13.0-17.5) Hematocrit 28.2 % (39.0-53.0) Mean Corpuscular Volume 88 fL (79-100) Mean Corpuscular Hemoglobin 28 pg (25-35) Mean Corpuscular Hemoglobin Concent 32 g/dL (31-37) Red Cell Distribution Width 18.5 % (11.5-14.5) Platelet Count 202 x10^3/uL (140-400) Neutrophils (%) (Auto) 69 % (31-73) Lymphocytes (%) (Auto) 17 % (24-48) Monocytes (%) (Auto) 6 % (0-9) Eosinophils (%) (Auto) 7 % (0-3) Basophils (%) (Auto) 1 % (0-3) Neutrophils # (Auto) 4.4 x10^3uL (1.8-7.7) Lymphocytes # (Auto) 1.1 x10^3/uL (1.0-4.8) Monocytes # (Auto) 0.4 x10^3/uL (0.0-1.1) Eosinophils # (Auto) 0.4 x10^3/uL (0.0-0.7) Basophils # (Auto) 0.1 x10^3/uL (0.0-0.2) Sodium Level 138 mmol/L (136-145) Potassium Level 3.2 mmol/L (3.5-5.1) Chloride Level 98 mmol/L (98-107) Carbon Dioxide Level 30 mmol/L (21-32) Anion Gap 10 (6-14) Blood Urea Nitrogen 28 mg/dL (8-26) Creatinine 3.6 mg/dL (0.7-1.3) Estimated GFR (Cockcroft-Gault) 19.9 Glucose Level 136 mg/dL (70-99) Calcium Level 8.4 mg/dL (8.5-10.1) Test 03/16/19 12:57 03/16/19 16:23 03/16/19 20:52 03/17/19 07:27 Glucose (Fingerstick) 125 mg/dL (70-99) 244 mg/dL (70-99) 331 mg/dL (70-99) 198 mg/dL (70-99) Test 03/17/19 11:15 Glucose (Fingerstick) 265 mg/dL (70-99) Laboratory Tests Test 03/16/19 12:57 03/16/19 16:23 03/16/19 20:52 03/17/19 07:27 Glucose (Fingerstick) 125 mg/dL (70-99) 244 mg/dL (70-99) 331 mg/dL (70-99) 198 mg/dL (70-99) Test 03/17/19 11:15 Glucose (Fingerstick) 265 mg/dL (70-99) Medications Active Scripts Medications Dose Route/Sig Max Daily Dose Days Date Category Dose Instructions Duoneb 0.5-3(2.5) Mg/3 Ml (Albuterol/Ipratropium) 3 Ml Ampul.neb 3 Ml NEB PRN Q4HRS PRN 03/13/19 Reported Senna-Docusate Sodium Tablet (Sennosides/Docusate Sodium) 1 Each Tablet 2 Each PO PRN QHS PRN 03/13/19 Reported Mucinex Dm Er 600-30 Mg Tablet (Guaifenesin/Dextromethorphan) 1 Each Tab.er.12h 1 Tab PO PRN Q12HRS 03/13/19 Reported Milk Of Magnesia (Magnesium Hydroxide) 400 Mg/5 Ml Oral.susp 400 Mg PO PRN DAILY PRN 03/13/19 Reported Lac-Hydrin Five (Ammonium Lactate) 226 Gm Lotion 226 Gm TP BID 03/13/19 Reported Dulcolax (Bisacodyl) 10 Mg Supp.rect 10 Mg RC PRN DAILY PRN 03/13/19 Reported Benadryl Allergy (Diphenhydramine Hcl) 12.5 Mg/5 Ml Liquid 25 Mg PO PRN Q6HRS PRN 03/13/19 Reported Metoclopramide Hcl 5 Mg Tablet 5 Mg PO TIDACHC 01/05/19 Rx Ondansetron Odt (Ondansetron) 4 Mg Tab.rapdis 4 Mg PO TIDAC 01/05/19 Rx Tylenol (Acetaminophen) 325 Mg Tablet 325 Mg PO QID 30 01/05/19 Rx Vitamin B-12 (Cyanocobalamin (Vitamin B-12)) 1,000 Mcg Tablet 1 Tab PO DAILY 11/24/18 Reported Allopurinol 100 Mg Tablet 1 Tab PO DAILY 11/24/18 Reported Renal Caps Softgel (Folic Acid/Vitamin B Comp W-C) 1 Mg Capsule 1 Cap PO DAILY 11/24/18 Reported Acidophilus Lactobacilli (Lactobacillus Acidophilus) 1 Each Capsule 1 Each PO BID 11/24/18 Reported Protonix (Pantoprazole Sodium) 20 Mg Tablet.dr 40 Mg PO DAILY 11/24/18 Reported Renvela (Sevelamer Carbonate) 800 Mg Tablet 800 Mg PO TIDWMEALS 11/24/18 Reported Tylenol (Acetaminophen) 325 Mg Tablet 1 Tab PO PRN Q4HRS 11/24/18 Reported Aspirin 81 Mg Tab.chew 81 Mg PO DAILY 11/24/18 Reported Lipitor (Atorvastatin Calcium) 40 Mg Tablet 40 Mg PO HS 11/24/18 Reported Clopidogrel (Clopidogrel Bisulfate) 75 Mg Tablet 75 Mg PO DAILY 11/24/18 Reported Humalog (Insulin Lispro) 100 Unit/1 Ml Insuln.pen 0 Units SQ TIDWMEALS 30 11/11/18 Rx BG 150-199= 1 units 200-299= 2 units 300-399= 4 units 400-499= 6 units ac tid sliding scale Vitamin D-3 (Cholecalciferol (Vitamin D3)) 2,000 Unit Capsule 1,000 Unit PO DAILY 09/13/17 Reported Comments IMPRESSION: 1. Moderate cardiomegaly with extensive coronary artery calcifications. 2. Mediastinal lymph nodes of borderline size. 3. Small right pleural effusion. 4. Mild bilateral dependent atelectasis and/or edema. 5. Small nonspecific left basilar pulmonary nodule. CT follow-up may be prudent to exclude a neoplastic etiology. 6. Cholelithiasis. Impression . 1. Acute hypoxic respiratory failure, likely related to mild congestive heart failure, although not well seen on chest x-ray. 2. Chronic hypercapnia, likely related to obesity hypoventilation syndrome. Denies significant tobacco history. ABG shows compensated respiratory acidosis. 3. End-stage renal disease, on hemodialysis. 4. Previous h/o CVA Plan . 1. Discussed with RN s/p vascular flap. 2. CT post-hemodialysis reviewed, no obvious CHF, Tiny 6 mm LLL nodule. D/W DR TIDWELL, Rec ct chest in 6 months with him 3. Wean oxygen off. 4. Minimize the use of narcotics. 5. Continue DuoNebs. 6. Deep venous thrombosis prophylaxis. 7. Discussed with Renal. dc plans per PCP YARELIS COWAN MD Mar 17, 2019 11:38
[2019-03-17] MEDS: INSULIN LISPRO 300 UNITS/3 ML INSULN.PEN. SQ SCH ×2 (12:10→17:00)
[2019-03-17] MEDS ORDERED: IV NORMAL SALINE 1000ML BAG 1,000 ML IV PRN ×2 (12:38)
[2019-03-17] MEDS ORDERED: diphenhydrAMINE 50 MG/ML VIAL IV PRN ×2 (12:45)
[2019-03-17] MEDS ORDERED: DIALYSIS PATIENT. MC PRN ×4 (12:45→15:45)
--- NOTE | 2019-03-17 14:38 | PDOC ---
SUBJECTIVE ROS Stable OBJECTIVE Vital Signs Vital Signs Date Time Temp Pulse Resp B/P (MAP) Pulse Ox O2 Delivery O2 Flow Rate FiO2 03/17/19 11:10 98 Nasal Cannula 2.0 03/17/19 11:00 98.0 61 18 122/54 (76) 98.0 I & 0 Intake and Output 03/17/19 07:00 Intake Total 660 ml Output Total 110 ml Balance 550 ml Intake Oral 660 ml Output Urine Total 100 ml Estimated Blood Loss 10 ml PHYSICAL EXAM Physical Exam GEN:NAD HEENT: O2 by NC, NECK: supple HEART: S1, S2 LUNGS: mild rhonchi and decreased breath sounds anteriorly. ABDOMEN: Soft, obese, nontender. EXTREMITIES: No edema , dressing over his right foot NEUROLOGIC: AxO No Miller SKIN- No Rash DIAGNOSIS/ASSESSMENT Assessment & Plan ESRD- On HD MWF Seen on HD, tolerating well. 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 Right open third, fourth and fifth toe amputation and Right lateral ankle debridement on 01/03/19 Right foot skin graft placement tomorrow Vascular and ID Anemia- Aranesp Acute hypoxic and hypercarbic respiratory failure No Vol Overload clinically, HD Today Obstructive sleep apnea- At [facility] Diabetes mellitus type 2. Severe protein-calorie malnutrition. COMMENT/RELEVANT DATA Meds Current Medications Medications (Trade) Dose Ordered Sig/Bhavesh Start Time Stop Time Status Last Admin Dose Admin Acetaminophen (Tylenol) 500 mg QID 03/16/19 17:00 03/17/19 13:44 500 MG Albumin Human 200 ml @ 200 mls/hr 1X PRN PRN 03/15/19 07:45 03/15/19 13:44 DC Albuterol/ Ipratropium (Duoneb) 3 ml 1X ONCE 03/14/19 16:15 03/14/19 16:18 DC 03/14/19 16:18 3 ML Allopurinol (Zyloprim) 100 mg DAILY 03/13/19 09:00 03/17/19 09:21 100 MG Aspirin (Children'S Aspirin) 81 mg DAILY 03/13/19 09:00 03/17/19 09:20 81 MG Atorvastatin Calcium (Lipitor) 40 mg HS 03/13/19 21:00 03/16/19 21:22 40 MG Barium Sulfate (Varibar Thin Liquid Apple) 148 gm 1X ONCE 03/14/19 11:15 03/14/19 11:17 DC 03/14/19 11:55 148 GM Bupivacaine HCl/ Epinephrine Bitart (Sensorcain-Mpf Epi 0.5%-[id number]) 30 ml STK-MED ONCE 03/16/19 10:24 03/16/19 11:24 DC Cefazolin Sodium 1 gm/Sodium Chloride 500 ml @ 500 mls/hr 1X ONCE 03/16/19 06:00 03/16/19 06:59 DC 03/16/19 12:27 Cefazolin Sodium/ Dextrose 50 ml @ 100 mls/hr 1X ONCE 03/16/19 11:15 03/16/19 11:44 DC 03/16/19 11:41 100 MLS/HR Cephalexin HCl (Keflex) 500 mg BID 03/16/19 21:00 03/30/19 20:59 03/17/19 09:21 500 MG Clopidogrel Bisulfate (Plavix) 75 mg DAILY 03/13/19 09:00 03/17/19 09:21 75 MG Cyanocobalamin (Vitamin B-12) 1,000 mcg DAILY 03/13/19 09:00 03/17/19 09:20 1,000 MCG Darbepoetin Reinaldo (Aranesp) 60 mcg WEEKLYHS 03/13/19 21:00 03/14/19 01:44 60 MCG Dexamethasone Sodium Phosphate (Decadron) 20 mg STK-MED ONCE 03/16/19 11:00 03/16/19 11:01 DC Dextrose (Dextrose 50%-Water Syringe) 25 gm STK-MED ONCE 03/13/19 18:00 03/14/19 07:40 DC Diphenhydramine HCl (Benadryl) 25 mg 1X PRN PRN 03/17/19 12:45 03/18/19 12:44 Fentanyl Citrate (Fentanyl 2ml Vial) 50 mcg PRN Q5MIN PRN 03/16/19 07:00 03/17/19 06:59 DC Furosemide (Lasix) 40 mg 1X ONCE 03/13/19 03:00 03/13/19 03:01 DC 03/13/19 02:56 40 MG Glucose (Insta-Glucose) 15 gm PRN Q15MIN PRN 03/13/19 18:30 03/13/19 18:34 15 GM Guaifenesin (MUCINEX ER with DM) 1 tab PRN Q12HRS PRN 03/13/19 07:30 03/15/19 06:05 1 TAB Heparin Sodium (Porcine) (Heparin Sodium) 5,000 unit Q12HR 03/16/19 21:00 03/17/19 09:35 5,000 UNIT Hydromorphone HCl (Dilaudid) 0.5 mg PRN Q10MIN PRN 03/16/19 07:00 03/17/19 06:59 DC Info (CONTRAST GIVEN -- Rx MONITORING) 1 each PRN DAILY PRN 03/15/19 12:45 03/17/19 12:44 DC Info (PHARMACY MONITORING -- do not chart) 1 each PRN DAILY PRN 03/17/19 12:45 Insulin Human Lispro (HumaLOG) 1 units 1X ONCE 03/17/19 08:15 03/17/19 08:16 DC 03/17/19 09:36 1 UNITS Iohexol (Omnipaque 300 Mg/ml) 75 ml 1X ONCE 03/15/19 12:45 03/15/19 12:46 DC 03/15/19 12:45 75 ML Lactobacillus Rhamnosus (Culturelle) 1 cap BID 03/13/19 09:00 03/17/19 09:21 1 CAP Lidocaine HCl (Lidocaine Pf 2% Vial) 5 ml STK-MED ONCE 03/16/19 11:00 03/16/19 11:01 DC Lidocaine HCl (Xylocaine 1% Pf 30ml Vial) 30 ml STK-MED ONCE 03/16/19 10:24 03/16/19 11:25 DC Lidocaine HCl (Xylocaine-Mpf 1% 2ml Vial) 2 ml PRN 1X PRN 03/16/19 07:00 03/17/19 06:59 DC Lidocaine/ Epinephrine (LIDOCAINE 1%-EPI 1:100,000 Multi-Dose) 20 ml STK-MED ONCE 03/16/19 10:58 03/16/19 11:58 DC 03/16/19 12:17 18 ML Magnesium Hydroxide (Milk Of Magnesia) 2,400 mg PRN DAILY PRN 03/13/19 10:30 Mineral Oil (Muri-Lube) 10 ml STK-MED ONCE 03/16/19 11:57 03/16/19 12:57 DC Morphine Sulfate (Morphine Sulfate) 1 mg PRN Q10MIN PRN 03/16/19 07:00 03/17/19 06:59 DC Ondansetron HCl (Zofran Odt) 4 mg Q6HRS PRN 03/13/19 10:45 Ondansetron HCl (Zofran) 4 mg STK-MED ONCE 03/16/19 11:00 03/16/19 11:01 DC Pantoprazole Sodium (Protonix) 40 mg DAILYAC 03/13/19 07:30 03/17/19 09:21 40 MG Prochlorperazine Edisylate (Compazine) 5 mg PACU PRN PRN 03/16/19 07:00 03/16/19 20:00 DC Propofol 20 ml @ As Directed STK-MED ONCE 03/16/19 11:00 03/16/19 11:01 DC Ringer's Solution 1,000 ml @ 30 mls/hr Q24H 03/16/19 07:00 03/16/19 11:37 DC Sevoflurane (Ultane) 30 ml STK-MED ONCE 03/16/19 12:43 03/16/19 12:44 DC Sodium Chloride 1,000 ml @ 400 mls/hr Q2H30M PRN 03/17/19 12:38 03/18/19 00:37 Tramadol HCl (Ultram) 25 mg PRN Q6HRS PRN 03/16/19 14:15 03/16/19 22:27 25 MG Vitamin B Complex/ Vitamin C (Krista-Beatriz) 1 tab DAILY 03/13/19 09:00 03/17/19 09:20 1 TAB Vitamin D (Vitamin D3) 1,000 unit DAILY 03/13/19 09:00 03/17/19 09:20 1,000 UNIT Lab Laboratory Tests Test 03/16/19 16:23 03/16/19 20:52 03/17/19 07:27 03/17/19 11:15 Glucose (Fingerstick) 244 mg/dL (70-99) 331 mg/dL (70-99) 198 mg/dL (70-99) 265 mg/dL (70-99) Results All relevant outside records, renal labs, imaging studies, telemetry/EKG's were reviewed. WAYLON GONZALEZ MD Mar 17, 2019 14:38
--- NOTE | 2019-03-17 15:10 | NUR ---
SW following pt. Orders faxed to [facility] and packet on chart. Pt will go to [facility] via [facility] at 1900. Pt aware of plan and agreeable. LILLIE MARTINEZ.
--- NOTE | 2019-03-17 16:50 | NUR ---
Called [facility] and gave report to JUAN Salazar.
--- NOTE | 2019-03-17 18:11 | NUR ---
Patient to discharge to [facility] after dialysis. EMS to pick the patient up around 1900. Ryan MARTINEZ gave report to Marie MARTINEZ at [facility]. Discharge pictures not taken of surgical sites, for Neela Wilson NP stressed to this RN that dressings will be changed by Dr. Arteaga next week and we are not to remove current dressing.
--- NOTE | 2019-03-17 19:18 | NUR ---
EMS picked up patient at 1920. IV's discontinued. Patient alert and stable upon discharge. All belongings with patient.
[2019-04-11] MEDS ORDERED: SENN-80 PO (09:41)
[2019-04-11] MEDS ORDERED: PANT20TA2 PO (09:41)
[2019-04-11] MEDS ORDERED: BISA10SU2 RC (09:41)
[2019-04-11] MEDS ORDERED: TRAM50TA PO (09:41)
== END 2019-03-17 19:22 | disposition home or self-care (01) | DRG 981 ==
LOC: ER 23:52 → MERGE 03-13 03:30 → 1 WEST ICU 03-13 03:30 → 5 NORTH 03-14 11:57
PROVIDERS: ADMIT Internal Medicine; ATTEND Internal Medicine
PROC: 5A1D70Z Performance of Urinary Filtration, Intermittent, Less than 6 Hours Per Day (ICD-10-PCS; 2019-03-13)
PROC: 5A09357 Assistance with Respiratory Ventilation, Less than 24 Consecutive Hours, Continuous Positive Airway Pressure (ICD-10-PCS; 2019-03-13)
PROC: 5A1D70Z Performance of Urinary Filtration, Intermittent, Less than 6 Hours Per Day (ICD-10-PCS; 2019-03-14)
PROC: 5A09357 Assistance with Respiratory Ventilation, Less than 24 Consecutive Hours, Continuous Positive Airway Pressure (ICD-10-PCS; 2019-03-14)
PROC: 5A1D70Z Performance of Urinary Filtration, Intermittent, Less than 6 Hours Per Day (ICD-10-PCS; 2019-03-15)
PROC: 0SBF0ZZ Excision of Right Ankle Joint, Open Approach (ICD-10-PCS; 2019-03-16)
PROC: 0HRMX74 Replacement of Right Foot Skin with Autologous Tissue Substitute, Partial Thickness, External Approach (ICD-10-PCS; 2019-03-16)
PROC: 0HBHXZZ Excision of Right Upper Leg Skin, External Approach (ICD-10-PCS; 2019-03-16)
PROC: 0QBN0ZZ Excision of Right Metatarsal, Open Approach (ICD-10-PCS; principal; 2019-03-16 11:15)
PROC: 5A09357 Assistance with Respiratory Ventilation, Less than 24 Consecutive Hours, Continuous Positive Airway Pressure (ICD-10-PCS; 2019-03-17)
DX: J96.01 Acute respiratory failure with hypoxia (principal); I50.33 Acute on chronic diastolic (congestive) heart failure; E43 Unspecified severe protein-calorie malnutrition; N18.6 End stage renal disease; I13.2 Hypertensive heart and chronic kidney disease with heart failure and with stage 5 chronic kidney disease, or end stage renal disease; E66.2 Morbid (severe) obesity with alveolar hypoventilation; E87.2 Acidosis; G81.94 Hemiplegia, unspecified affecting left nondominant side; I48.1 Persistent atrial fibrillation; J96.02 Acute respiratory failure with hypercapnia; E11.51 Type 2 diabetes mellitus with diabetic peripheral angiopathy without gangrene; I50.84 End stage heart failure; E11.22 Type 2 diabetes mellitus with diabetic chronic kidney disease; D63.1 Anemia in chronic kidney disease; E11.42 Type 2 diabetes mellitus with diabetic polyneuropathy; E78.00 Pure hypercholesterolemia, unspecified; E78.5 Hyperlipidemia, unspecified; F32.9 Major depressive disorder, single episode, unspecified; M19.90 Unspecified osteoarthritis, unspecified site; I25.10 Atherosclerotic heart disease of native coronary artery without angina pectoris; I48.2 Chronic atrial fibrillation; J32.3 Chronic sphenoidal sinusitis; K21.9 Gastro-esophageal reflux disease without esophagitis; K80.20 Calculus of gallbladder without cholecystitis without obstruction; R13.12 Dysphagia, oropharyngeal phase; Z68.35 Body mass index [BMI] 35.0-35.9, adult; Z79.01 Long term (current) use of anticoagulants; Z79.02 Long term (current) use of antithrombotics/antiplatelets; Z79.82 Long term (current) use of aspirin; Z79.899 Other long term (current) drug therapy; Z82.49 Family history of ischemic heart disease and other diseases of the circulatory system; Z86.010 Personal history of colon polyps; Z86.73 Personal history of transient ischemic attack (TIA), and cerebral infarction without residual deficits; Z87.891 Personal history of nicotine dependence; Z89.412 Acquired absence of left great toe; Z89.422 Acquired absence of other left toe(s); Z95.0 Presence of cardiac pacemaker; Z95.5 Presence of coronary angioplasty implant and graft; Z99.2 Dependence on renal dialysis; Z79.4 Long term (current) use of insulin
CPT/HCPCS: 36415; 36600; 70450; 70487; 71045; 71250; 74230; 80048; 80053; 82805; 82962; 83880; 84484; 85025; 87641; 93005; 93970; 94640; 94660; 94760; 96374; A7015; J0690; J0696; J0881; J1100; J1644; J1815; J1940; J2001; J2405; J2704; J3490; J7040; J7042; J7620; Q0162; Q9967; 92526; 92610; 92611; 97110; 97530; 97535; 99285-25; A4461

== ENCOUNTER 2019-04-24 10:49 | Inpatient (IN) | payer BC, OTHER ==
[~2019-04-24] VITALS: Ht 175.3 cm; Wt 96.7 kg
[~2019-04-24 10:49] MED LIST changes: +AMMO226L TP; +BISA10SU2 RC; +BISA10SU55 RC; +CEPH250C PO; +DIPH-121 PO; +GUAI-108 PO; +IPRA3AMP29 NEB; +MAGN400O7 PO; +SENN-80 PO; +SENN1TAB99 PO
[2019-04-24 11:00] VITALS: BP 144/71
--- NOTE | 2019-04-24 12:00 | NUR ---
pt arrived to unit at 1100 in stable condition. pt is alert and oriented. pt has call light within reach. pt came from [facility], received report from Fred. will continue to monitor.
--- NOTE | 2019-04-24 12:09 | PDOC ---
Provider Note Provider Note history and physical dictated # [id number] KIMI TIDWELL MD April 24, 2019 12:09
[2019-04-24] MEDS ORDERED: traMADol 50 MG TABLET PO PRN (12:15)
[2019-04-24] MEDS ORDERED: ONDANSETRON ODT 4 MG TAB.RAPDIS. PO PRN ×2 (12:15)
[2019-04-24] MEDS ORDERED: diphenhydrAMINE HCL 25 MG CAPSULE PO PRN (12:15)
[2019-04-24] MEDS ORDERED: ACETAMINOPHEN 325 MG TABLET. PO PRN ×2 (12:15)
[2019-04-24] MEDS ORDERED: METOCLOPRAMIDE 5 MG TABLET. PO PRN (12:15)
[2019-04-24] MEDS ORDERED: DEXTROSE 50% 25 GM / 50ML DISP.SYRIN. IV PRN (12:15)
[2019-04-24] MEDS ORDERED: MAGNESIUM HYDROXIDE 2,400 MG/30 ML ORAL.SUSP. PO PRN ×2 (12:15)
--- NOTE | 2019-04-24 12:49 | HP ---
ADMIT DATE: 04/24/2019 HISTORY OF PRESENT ILLNESS: The patient is a 78-year-old -[place] male resident of a correction, who has end-stage renal disease, on hemodialysis, dialyzes Mondays, Wednesdays and Fridays, who has diabetes mellitus type 2 with peripheral neuropathy, peripheral arterial disease, anemia of chronic disease, hyperlipidemia and morbid obesity who has a history of a recent right transmetatarsal amputation and skin graft to that area, was [facility] with an infected right lateral foot wound. The patient has been followed by the wound care team at the correction and has a several day history of foul smelling drainage from the right lateral foot. He has had no fever or chills and a culture was obtained yesterday. I spoke with the nurse practitioner, aKyy, who said an x-ray of the right foot was done yesterday and was negative. Wound culture was also sent yesterday and the patient received a couple of doses of oral clindamycin and the patient is [facility] 04[facility]24[facility]2019 for wound care and IV antibiotics. ALLERGIES AND INTOLERANCES: None. MEDICATIONS: Include clindamycin 150 mg p.o. t.i.d., Plavix 75 mg every day, metoclopramide 5 mg before meals t.i.d., low dose Humalog insulin sliding scale before meals t.i.d., vitamin D 1000 units every day, Protonix 20 mg every day, aspirin 81 mg every day, Renvela 800 mg t.i.d. with meals; he is on Krista-Beatriz 1 every day, vitamin B12 of 1000 mcg every day. He is on a probiotic one b.i.d., allopurinol 100 mg every day, atorvastatin 40 mg at bedtime, Tylenol 325 mg q.i.d. and every 4 hours p.r.n. He is on Zofran 4 mg p.o. every 6 hours p.r.n., and tramadol 25 mg p.o. every 6 hours p.r.n. PAST MEDICAL HISTORY: Significant for end-stage renal disease, on hemodialysis Mondays, Wednesdays, Fridays; diabetes mellitus type 2 with peripheral neuropathy, peripheral arterial disease, anemia of chronic disease, he also has morbid obesity, he has a history of chronic wounds in the right foot, eventually had a right transmetatarsal amputation and then had a skin graft subsequent to that and he has a history of previous osteomyelitis involving the right foot and received IV antibiotics. He has had peripheral arterial disease with a stent placed to the left femoral artery in the past. He has had previous amputation of left great toe, had a right transmetatarsal amputation. SOCIAL HISTORY: He does not drink alcohol nor does he smoke cigarettes, resides in a correction. FAMILY HISTORY: Noncontributory. REVIEW OF SYSTEMS: GENERAL: He denies any fever, chills or sweats in the last 3 days. CARDIOVASCULAR: No chest pain. PULMONARY: No cough or shortness of breath. GASTROINTESTINAL: No constipation. ENDOCRINE: He has diabetes mellitus. SKIN: He has got a right foot wound. The rest of systems reviewed are negative except as stated in history of present illness. PHYSICAL EXAMINATION: VITAL SIGNS: His apical pulse is regular at 68, respiratory rate 18, temperature and blood pressure are pending. HEENT: Eyes: Gaze is conjugate. Extraocular muscles are intact. Mouth: Tongue is midline. NECK: There is no cervical lymphadenopathy or thyroid enlargement. HEART: Reveals S1, S2. There is no S3 or murmur. LUNGS: Clear anteriorly. ABDOMEN: Obese and soft, nontender with no hepatosplenomegaly, masses or tenderness. EXTREMITIES: Right upper extremity, he has a shunt. Lower extremities, he has got an ulcer with pink base in the left heel. Examination of the right foot shows he got a transmetatarsal amputation with skin graft noted. He has got a right lateral foot wound with pink tissue. It has been clean, so I do not see any drainage coming out of it when I looked at it. ASSESSMENT: 1. Infected right lateral foot wound. 2. History of right transmetatarsal amputation with skin graft. 3. End-stage renal disease on hemodialysis. 4. Obstructive sleep apnea. 5. Diabetes mellitus type 2 with peripheral neuropathy. 6. Peripheral arterial disease. 7. Anemia of chronic disease. 8. Hyperlipidemia. 9. Morbid obesity. PLAN: At this time is to consult Dr. Alex Muir for Infectious Disease, Dr. Arteaga for Vascular Surgery, Dr. James for Nephrology and also the wound care team. We will also write for a culture of the right lateral foot wound. Continue with wound care. Get a heel protector for the left foot. Start him on IV Zyvox and IV Zosyn and he will be dialyzed today. We will continue with his other current correction medications and get an MRI of the right foot to rule out osteomyelitis. Routine laboratory tests will be checked including a sed rate, C-reactive protein, hemoglobin A1c and get a CBC and a CMP, also get an EKG and a chest x-ray. KIMI TIDWELL MD DR: LOBO/dianna JOB#: [id number] / [id number]
[2019-04-24] MEDS ORDERED: ONDA4TAB7 PO (13:22)
[2019-04-24] MEDS ORDERED: FOLI1CAP10 PO (13:22)
[2019-04-24] MEDS ORDERED: AMMO225L8 TP (13:22)
[2019-04-24] MEDS ORDERED: SEVE800T9 PO (13:22)
[2019-04-24] MEDS ORDERED: CHOL10003 PO (13:22)
[2019-04-24] MEDS ORDERED: METO10TA81 PO (13:22)
[2019-04-24] MEDS ORDERED: ACET325T9 PO ×2 (13:22)
[2019-04-24] MEDS ORDERED: ALLO100T PO (13:22)
[2019-04-24] MEDS ORDERED: PANT20TA2 PO (13:22)
[2019-04-24] MEDS ORDERED: ASPI81TA50 PO (13:22)
[2019-04-24] MEDS ORDERED: CLOP75TA PO (13:22)
[2019-04-24] MEDS ORDERED: SENN-80 PO (13:22)
[2019-04-24] MEDS ORDERED: MAGN400O7 PO (13:22)
[2019-04-24] MEDS ORDERED: CYAN10005 PO (13:22)
[2019-04-24] MEDS ORDERED: CLIN150C14 PO (13:22)
[2019-04-24] MEDS ORDERED: TRAM50TA PO (13:22)
[2019-04-24] MEDS ORDERED: BISA10SU55 RC (13:22)
[2019-04-24] MEDS ORDERED: IPRA3AMP29 NEB (13:22)
[2019-04-24] MEDS ORDERED: DIPH-121 PO (13:22)
[2019-04-24] MEDS ORDERED: INSU100I11 SQ (13:22)
[2019-04-24] MEDS ORDERED: ATOR40TA PO (13:22)
[2019-04-24] MEDS ORDERED: LACT1CAP6 PO (13:22)
[2019-04-24] MEDS: LACTOBACILLUS RHAMNOSUS GG 1 CAPSULE. PO SCH ×2 (13:30→20:49)
[2019-04-24] MEDS: ASPIRIN ENTERIC COATED 81 MG TABLET.DR. PO SCH (13:30)
[2019-04-24] MEDS: PANTOPRAZOLE 40 MG TABLET.DR. PO SCH (13:30)
[2019-04-24] MEDS: CYANOCOBALAMIN (VITAMIN B-12) 1,000 MCG TABLET. PO SCH (13:30)
[2019-04-24] MEDS: SEVELAMER CARBONATE 800 MG TABLET. PO SCH ×2 (13:30→20:49)
[2019-04-24] MEDS: CHOLECALCIFEROL (VITAMIN D3) 1,000 UNIT TABLET PO SCH (13:30)
[2019-04-24] MEDS: ACETAMINOPHEN 325 MG TABLET. PO SCH ×3 (13:30→20:50)
[2019-04-24] MEDS: CLOPIDOGREL BISULFATE 75 MG TABLET PO SCH (13:30)
[2019-04-24] MEDS: FOLIC/VIT B COMP W-C (RENAL) TABLET. PO SCH (13:30)
[2019-04-24] MEDS: ALLOPURINOL 100 MG TABLET. PO SCH (13:30)
--- NOTE | 2019-04-24 13:46 | RAD ---
AP portable chest radiograph 04/24/2019 Clinical History: Dialysis. Infection. An AP erect portable digital radiograph of the chest was obtained. Comparison study is dated 03/13/2019. A pacemaker is unchanged in position. The cardiac silhouette is mildly enlarged. The thoracic aorta is tortuous. Patchy left lower lobe atelectasis and/or infiltrate is seen. Slight prominence of the pulmonary vasculature is noted. No pneumothorax or pleural effusion is seen. The osseous structures are unchanged. Impression: Patchy left lower lobe atelectasis and/or infiltrate. Electronically signed by: Heladio Vincent MD (04/24/2019 1:43 PM) [facility]
[2019-04-24] MEDS: PIPERACILLIN/TAZOBACTAM 2.25 GM in IV NORMAL SALINE 50ML 50 ML IV SCH ×2 (13:55→22:09)
[2019-04-24] MEDS ORDERED: PIPERACILLIN/TAZOBACTAM 2.25 GM in IV NORMAL SALINE 50ML 50 ML IV SCH (14:00)
--- NOTE | 2019-04-24 14:26 | PDOC2 ---
CONSULT Date of Consult Date of Consult DATE: 04/24/19 TIME: 14:19 History of Present Illness Reason for Visit: This is a very pleasant 78-year-old male who is very well known to the vascular surgery service who presents with a new wound and new infection of his right lower extremity transmetatarsal amputation site. The central transmetatarsal site is healing however he has developed a new necrotic lateral wound on his foot which tracks into the entire plantar surface of the TMA site. He currently has no evidence of a ascending infection. The patient is a [facility] patient and minimally active or ambulatory. Past Medical History Cardiovascular: CAD, CHF, HTN, [place], Hyperlipidemia Pulmonary: COPD CENTRAL NERVOUS SYSTEM: Dementia, Periperal neuropathy Endocrine: Diabetes Past Surgical History Past Surgical History: Other (previous percutaneous interventions with stenting, right transmetatarsal amputation, left first toe amputation) Family History Family History: Diabetes, Hypertension Social History Quit ALCOHOL: none Drugs: None Lives: Jail Current Medications Current Medications Current Medications Linezolid/Dextrose 300 ml @ 300 mls/hr Q12HR IV Last administered on 04/24/19at 13:50; Start 04/24/19 at 13:30 Piperacillin Sod/ Tazobactam Sod 2.25 gm/Sodium Chloride 50 ml @ 100 mls/hr Q8HRS IV Last administered on 04/24/19at 13:55; Start 04/24/19 at 14:00 Magnesium Hydroxide (Milk Of Magnesia) 2,400 mg PRN DAILY PRN PO CONSTIPATION; Start 04/24/19 at 12:15 Ondansetron HCl (Zofran Odt) 4 mg PRN Q6HRS PRN PO NAUSEA/VOMITING; Start 04/24/19 at 12:15 Tramadol HCl (Ultram) 25 mg PRN Q6HRS PRN PO MODERATE-SEVERE PAIN; Start 04/24/19 at 12:15 Aspirin (Ecotrin) 81 mg DAILYWBKFT PO ; Start 04/24/19 at 13:30 Sevelamer Carbonate (Renvela) 800 mg TIDWMEALS PO ; Start 04/24/19 at 13:30 Cyanocobalamin (Vitamin B-12) 1,000 mcg DAILY PO ; Start 04/24/19 at 13:30 Allopurinol (Zyloprim) 100 mg DAILY PO ; Start 04/24/19 at 13:30 Atorvastatin Calcium (Lipitor) 40 mg QHS PO ; Start 04/24/19 at 21:00 Acetaminophen (Tylenol) 325 mg PRN QID PRN PO MILD PAIN / TEMP; Start 04/24/19 at 12:15 Clopidogrel Bisulfate (Plavix) 75 mg DAILYWBKFT PO ; Start 04/24/19 at 13:30 Metoclopramide HCl (Reglan) 5 mg PRN BFRMEALHC PRN PO NAUSEA/VOMITING; Start 04/24/19 at 12:15 Vitamin D (Vitamin D3) 1,000 unit DAILY PO ; Start 04/24/19 at 13:30 Pantoprazole Sodium (Protonix) 40 mg DAILYAC PO ; Start 04/24/19 at 13:30 Insulin Human Lispro (HumaLOG) 0-5 UNITS TIDWMEALS SQ ; Start 04/24/19 at 17:00 Dextrose (Dextrose 50%-Water Syringe) 12.5 gm PRN Q15MIN PRN IV SEE COMMENTS; Start 04/24/19 at 12:15 Lactobacillus Rhamnosus (Culturelle) 1 cap BID PO ; Start 04/24/19 at 13:30 Vitamin B Complex/ Vitamin C (Krista-Beatriz) 1 tab DAILY PO ; Start 04/24/19 at 13:30 Piperacillin Sod/ Tazobactam Sod 2.25 gm/Sodium Chloride 50 ml @ 100 mls/hr Q8HRS IV ; Start 04/24/19 at 14:00; Status UNV Clopidogrel Bisulfate (Plavix) 75 mg DAILYWBKFT PO ; Start 04/25/19 at 08:00; Status UNV Metoclopramide HCl (Reglan) 5 mg TIDBFRMEAL PO ; Start 04/24/19 at 16:30 Vitamin D (Vitamin D3) 1,000 unit DAILY PO ; Start 04/25/19 at 09:00; Status UNV Pantoprazole Sodium (Protonix) 20 mg DAILYAC PO ; Start 04/25/19 at 07:30; Status UNV Aspirin (Onesimo Aspirin) 81 mg DAILYWBKFT PO ; Start 04/25/19 at 08:00; Status UNV Sevelamer Carbonate (Renvela) 800 mg TIDWMEALS PO ; Start 04/24/19 at 17:00; Status UNV Cyanocobalamin (Vitamin B-12) 1,000 mcg DAILY PO ; Start 04/25/19 at 09:00; Status UNV Lactobacillus Rhamnosus (Culturelle) 1 cap BID PO ; Start 04/24/19 at 21:00; Status UNV Allopurinol (Zyloprim) 100 mg DAILY PO ; Start 04/25/19 at 09:00; Status UNV Atorvastatin Calcium (Lipitor) 40 mg QHS PO ; Start 04/24/19 at 21:00; Status UNV Acetaminophen (Tylenol) 325 mg PRN Q6HRS PRN PO MILD PAIN / TEMP; Start 04/24/19 at 12:15; Status UNV Acetaminophen (Tylenol) 325 mg QID PO ; Start 04/24/19 at 13:30 Ondansetron HCl (Zofran Odt) 4 mg PRN Q6HRS PRN PO NAUSEA/VOMITING; Start 04/24/19 at 12:15; Status UNV Tramadol HCl (Ultram) 25 mg PRN Q6HRS PRN PO PAIN; Start 04/24/19 at 12:15; Status UNV Diphenhydramine HCl (Benadryl) 25 mg PRN Q6HRS PRN PO ITCHING; Start 04/24/19 at 12:15 Magnesium Hydroxide (Milk Of Magnesia) 2,400 mg PRN DAILY PRN PO CONSTIPATION; Start 04/24/19 at 12:15; Status UNV Insulin Human Lispro (HumaLOG) 0-6 UNITS BG 300-39... TIDWMEALS SQ ; Start 04/24/19 at 17:00; Status UNV Active Scripts Active Reported Zofran (Ondansetron Hcl) 4 Mg Tablet 1 Tab PO Q6HRS Vitamin D3 (Cholecalciferol (Vitamin D3)) 1,000 Unit Tablet 1 Tab PO DAILY Vitamin B-12 (Cyanocobalamin (Vitamin B-12)) 1,000 Mcg Tablet 1 Tab PO DAILY Tylenol (Acetaminophen) 325 Mg Tablet 325 Mg PO QID Tylenol (Acetaminophen) 325 Mg Tablet 1 Tab PO PRN Q4HRS Tramadol Hcl 50 Mg Tablet 25 Mg PO Q6HRS PRN Senna (Sennosides) 8.6 Mg Tablet 8.6 Mg PO PRN DAILY PRN 2 tabs Renvela (Sevelamer Carbonate) 800 Mg Tablet 800 Mg PO TIDWMEALS Renal Caps Softgel (Folic Acid/Vitamin B Comp W-C) 1 Mg Capsule 1 Mg PO DAILY Reglan (Metoclopramide Hcl) 10 Mg Tablet 5 Mg PO TID Protonix (Pantoprazole Sodium) 20 Mg Tablet. 1 Tab PO DAILY Probiotic (Lactobacillus Acidophilus) 1 Each Capsule 1 Each PO BID Milk Of Magnesia (Magnesium Hydroxide) 400 Mg/5 Ml Oral.susp 400 Mg PO PRN DAILY PRN Lipitor (Atorvastatin Calcium) 40 Mg Tablet 1 Tab PO QHS Skin Treatment (Ammonium Lactate) 225 Gm Lotion 225 Gm TP BID Humalog (Insulin Lispro) 100 Unit/1 Ml Insuln.pen 100 Unit SQ TIDBFRMEAL 150-199=1 unit 200-299=2 units 300-399=4 units 100-499=6 units Duoneb 0.5-3(2.5) Mg/3 Ml (Albuterol/Ipratropium) 3 Ml Ampul.neb 3 Ml NEB PRN Q4HRS PRN Clopidogrel (Clopidogrel Bisulfate) 75 Mg Tablet 1 Tab PO DAILY Clindamycin Hcl 150 Mg Capsule 150 Mg PO TID Dulcolax (Bisacodyl) 10 Mg Supp.rect 10 Mg RC PRN DAILY PRN Benadryl Allergy (Diphenhydramine Hcl) 12.5 Mg/5 Ml Liquid 10 Ml PO PRN Q6-8HRS Aspir-Low (Aspirin) 81 Mg Tablet. 1 Tab PO DAILY Allopurinol 100 Mg Tablet 1 Tab PO DAILY Allergies Allergies: Coded Allergies: No Known Drug Allergies (Unverified , 04/24/19) ROS Skin: Yes Other (lateral wound involving the right lower extremity) Physical Exam General: Alert, Oriented X3, Cooperative, No acute distress HEENT: Atraumatic, PERRLA Lungs: Clear to auscultation, Normal air movement Heart: Regular rate, Normal S1, Normal S2 Abdomen: Normal bowel sounds, Soft, Other (obese) Extremities: Other (Doppler signals intact in the right and left lower extremity, palpable femoral pulses bilaterally) Skin: Other (soft necrotic wound involving the right lateral foot tracking into the plantar surface and midfoot, no evidence of cellulitis or a ascending infection, no evidence of crepitance) Neuro: Strength at 5/5 X4 ext, Cranial nerves 3-12 NL Psych/Mental Status: Mental status NL, Mood NL Assessment/Plan Assessment/Plan Right lower extremity diabetic foot infection--the patient has a recurrent right lower extremity foot infection with decompression along the lateral transmetatarsal amputation site. I suspect this is involving the majority of the plantar surface of the foot. Debridement of this could be performed however this would not leave the patient with much walking surface or meaningful use of the foot. I have recommended a right below-knee amputation. We will look for time later this week for surgical therapy. I will contact his power of attorney lawyer and update her on his status. I would maintain broad-spectrum IV antibiotic therapy with daily dressing changes in the meantime. All questions were answered to the patient's satisfaction today. Garrison Cuello DO, GARRISON SARAH DO April 24, 2019 14:26
[2019-04-24 15:15] LABS: ALBUMIN 2.3 g/dL (3.4-5.0); ALBUMIN/GLOBULIN RATIO 0.5 (1.0-1.7); CALCIUM 8.6 mg/dL (8.5-10.1); CREATININE 5.5 mg/dL (0.7-1.3); GFR 12.2; MAGNESIUM 2.1 mg/dL (1.8-2.4); POTASSIUM 4.1 mmol/L (3.5-5.1); TOTAL BILIRUBIN 0.4 mg/dL (0.2-1.0); TOTAL PROTEIN 6.9 g/dL (6.4-8.2)
--- NOTE | 2019-04-24 15:49 | NUR ---
pt left for dialysis at 1545
[2019-04-24 16:15] LABS: BASO # 0.1 x10^3/uL (0.0-0.2); BASO % 1 % (0-3); EOS # 0.4 x10^3/uL (0.0-0.7); EOS % 4 % (0-3); HEMATOCRIT 26.6 % (39.0-53.0); HEMOGLOBIN 8.5 g/dL (13.0-17.5); LYMPH # 1.3 x10^3/uL (1.0-4.8); LYMPH % 13 % (24-48); MEAN CORPUSCULAR HEMOGLOBIN 28 pg (25-35); MEAN CORPUSCULAR HGB CONC 32 g/dL (31-37); MEAN CORPUSCULAR VOLUME 86 fL (79-100); MONO # 0.6 x10^3/uL (0.0-1.1); MONO % 6 % (0-9); NEUT # 7.6 x10^3uL (1.8-7.7); NEUT % 76 % (31-73); PLATELET COUNT 327 x10^3/uL (140-400); RED BLOOD COUNT 3.09 x10^6/uL (4.30-5.70); RED CELL DISTRIBUTION WIDTH 19.3 % (11.5-14.5)
[2019-04-24] MEDS ORDERED: IV NORMAL SALINE 1000ML BAG 1,000 ML IV PRN ×2 (17:00)
[2019-04-24] MEDS ORDERED: INSULIN LISPRO 300 UNITS/3 ML INSULN.PEN. SQ SCH (17:00)
[2019-04-24] MEDS ORDERED: SEVELAMER CARBONATE 800 MG TABLET. PO SCH (17:00)
[2019-04-24] MEDS: INSULIN LISPRO 300 UNITS/3 ML INSULN.PEN. SQ SCH (17:00)
--- NOTE | 2019-04-24 17:11 | PDOC ---
Infectious Disease Note Vital Signs: Vital Signs Vital Signs Date Time Temp Pulse Resp B/P (MAP) Pulse Ox O2 Delivery O2 Flow Rate FiO2 04/24/19 12:00 Room Air 04/24/19 11:00 97.9 75 16 144/71 (95) 96 97.9 Medications: Inpatient Meds: Current Medications Medications (Trade) Dose Ordered Sig/Bhavesh Start Time Stop Time Status Last Admin Dose Admin Acetaminophen (Tylenol) 325 mg QID 04/24/19 13:30 Allopurinol (Zyloprim) 100 mg DAILY 04/25/19 09:00 UNV Aspirin (Onesimo Aspirin) 81 mg DAILYWBKFT 04/25/19 08:00 UNV Aspirin (Ecotrin) 81 mg DAILYWBKFT 04/24/19 13:30 Atorvastatin Calcium (Lipitor) 40 mg QHS 04/24/19 21:00 UNV Clopidogrel Bisulfate (Plavix) 75 mg DAILYWBKFT 04/25/19 08:00 UNV Cyanocobalamin (Vitamin B-12) 1,000 mcg DAILY 04/25/19 09:00 UNV Dextrose (Dextrose 50%-Water Syringe) 12.5 gm PRN Q15MIN PRN 04/24/19 12:15 Diphenhydramine HCl (Benadryl) 25 mg PRN Q6HRS PRN 04/24/19 12:15 Insulin Human Lispro (HumaLOG) 0-6 UNITS BG 300-39... TIDWMEALS 04/24/19 17:00 UNV Lactobacillus Rhamnosus (Culturelle) 1 cap BID 04/24/19 21:00 UNV Linezolid/Dextrose 300 ml @ 300 mls/hr Q12HR 04/24/19 13:30 04/24/19 13:50 300 MLS/HR Magnesium Hydroxide (Milk Of Magnesia) 2,400 mg PRN DAILY PRN 04/24/19 12:15 UNV Metoclopramide HCl (Reglan) 5 mg TIDBFRMEAL 04/24/19 16:30 Ondansetron HCl (Zofran Odt) 4 mg PRN Q6HRS PRN 04/24/19 12:15 UNV Pantoprazole Sodium (Protonix) 20 mg DAILYAC 04/25/19 07:30 UNV Piperacillin Sod/ Tazobactam Sod 2.25 gm/Sodium Chloride 50 ml @ 100 mls/hr Q8HRS 04/24/19 14:00 UNV Sevelamer Carbonate (Renvela) 800 mg TIDWMEALS 04/24/19 17:00 UNV Tramadol HCl (Ultram) 25 mg PRN Q6HRS PRN 04/24/19 12:15 UNV Vitamin B Complex/ Vitamin C (Krista-Beatriz) 1 tab DAILY 04/24/19 13:30 Vitamin D (Vitamin D3) 1,000 unit DAILY 04/25/19 09:00 UNV Labs: Lab Laboratory Tests Test 04/24/19 14:45 04/24/19 16:05 Sodium Level 137 mmol/L (136-145) Potassium Level 4.1 mmol/L (3.5-5.1) Chloride Level 99 mmol/L (98-107) Carbon Dioxide Level 27 mmol/L (21-32) Anion Gap 11 (6-14) Blood Urea Nitrogen 74 mg/dL (8-26) Creatinine 5.5 mg/dL (0.7-1.3) Estimated GFR (Cockcroft-Gault) 12.2 BUN/Creatinine Ratio 13 (6-20) Glucose Level 180 mg/dL (70-99) Calcium Level 8.6 mg/dL (8.5-10.1) Phosphorus Level 4.0 mg/dL (2.6-4.7) Magnesium Level 2.1 mg/dL (1.8-2.4) Total Bilirubin 0.4 mg/dL (0.2-1.0) Aspartate Amino Transf (AST/SGOT) 22 U/L (15-37) Alanine Aminotransferase (ALT/SGPT) 16 U/L (16-63) Alkaline Phosphatase 140 U/L (46-116) C-Reactive Protein, Quantitative 74.0 mg/L (0-3.3) Total Protein 6.9 g/dL (6.4-8.2) Albumin 2.3 g/dL (3.4-5.0) Albumin/Globulin Ratio 0.5 (1.0-1.7) White Blood Count 10.0 x10^3/uL (4.0-11.0) Red Blood Count 3.09 x10^6/uL (4.30-5.70) Hemoglobin 8.5 g/dL (13.0-17.5) Hematocrit 26.6 % (39.0-53.0) Mean Corpuscular Volume 86 fL (79-100) Mean Corpuscular Hemoglobin 28 pg (25-35) Mean Corpuscular Hemoglobin Concent 32 g/dL (31-37) Red Cell Distribution Width 19.3 % (11.5-14.5) Platelet Count 327 x10^3/uL (140-400) Neutrophils (%) (Auto) 76 % (31-73) Lymphocytes (%) (Auto) 13 % (24-48) Monocytes (%) (Auto) 6 % (0-9) Eosinophils (%) (Auto) 4 % (0-3) Basophils (%) (Auto) 1 % (0-3) Neutrophils # (Auto) 7.6 x10^3uL (1.8-7.7) Lymphocytes # (Auto) 1.3 x10^3/uL (1.0-4.8) Monocytes # (Auto) 0.6 x10^3/uL (0.0-1.1) Eosinophils # (Auto) 0.4 x10^3/uL (0.0-0.7) Basophils # (Auto) 0.1 x10^3/uL (0.0-0.2) Micro rt lateral foot wound c/s sent Objective: Assessment: RT Lateral necrotic foot wound S/P RT TMA with graft Lt heel superfical wound not infected DM with neuropathy ESRD on HD Anemia of chroniic disease Chronic lymphedema Chronic venous stasis PAD Plan: Plan of Care Cont zosyn renal dosing Zyvox vascular is planning for further surgery Cont wound care D/W RN Thank you [phone] LARISA MONTAGUE MD April 24, 2019 17:11
[2019-04-24] MEDS ORDERED: DIALYSIS PATIENT. MC PRN ×2 (17:15)
--- NOTE | 2019-04-24 20:35 | NUR ---
Pt returned to unit from dialysis
[2019-04-24 20:41] VITALS: BP 134/68
--- NOTE | 2019-04-24 20:46 | CONS ---
DATE OF CONSULTATION: 04/24/2019 REFERRING PHYSICIAN: Dr. Street. REASON FOR CONSULTATION: Infected right foot wound. HISTORY OF PRESENT ILLNESS: A 78-year-old male with history of end-stage renal disease, on hemodialysis through right upper extremity fistula, diabetes mellitus 2 with neuropathy, peripheral vascular disease, anemia of chronic disease, morbid obesity, generalized debility, wheelchair bound, hyperlipidemia, [facility] resident, status post right transmetatarsal amputation and skin graft with prolonged antibiotic therapy in the past, was admitted to from the [facility] on 04/24/2019 with a new infected right lateral foot wound. The patient had cultures done at the [facility], which are not available at this time. X-ray of the right foot did not reveal any osteomyelitis. The patient received a couple of doses of oral clindamycin and is admitted for further evaluation and treatment. The patient was started on IV Zosyn and Zyvox. Wound cultures are taken. Vascular has been consulted. ID consult has been requested for antibiotic management. The patient denies any fevers, chills, nausea, vomiting, diarrhea, abdominal pain. Appetite is good. The patient also has a small wound over the left heel. ALLERGIES: None. CURRENT MEDICATIONS: Zosyn and Zyvox. The patient has received a couple of doses of clindamycin at the [facility], Humalog insulin, vitamin D, Protonix, aspirin, Renvela, vitamin B12, probiotics, allopurinol, atorvastatin, Tylenol, Zofran, tramadol. PAST MEDICAL HISTORY: End-stage renal disease, on dialysis through a right upper extremity fistula, diabetes mellitus 2 with peripheral neuropathy, peripheral vascular disease, anemia of chronic disease, history of chronic wound of the right foot, status post multiple surgeries including lastly right transmetatarsal amputation and skin graft subsequent to that for previous osteomyelitis involving the right foot, received prolonged IV daptomycin and meropenem in the past, peripheral arterial disease with stent placement to the left femoral artery, previous amputation of the left great toe and right transmetatarsal amputation. SOCIAL HISTORY: [facility] resident. Denies ETOH or illicit drug use. Nonsmoker. FAMILY HISTORY: As per HPI. REVIEW OF SYSTEMS: Negative except for HPI. PHYSICAL EXAMINATION: VITAL SIGNS: Temperature 97.9, pulse 75, respirations 16, blood pressure 144/71, oxygen saturation 96% on room air. GENERAL: Alert, oriented, awake male lying in bed comfortably, in no acute distress, pleasant, cooperative. HEENT: Normocephalic, atraumatic, anicteric. No thrush. Oral mucosa moist. NECK: Supple. No JVD. No thyromegaly. LUNGS: Clear bilaterally. No wheezing. HEART: S1, S2. No gallops, or murmurs, or rubs. ABDOMEN: Soft, obese. Bowel sounds present, nontender, nondistended. EXTREMITIES: Right upper extremity has AV shunt, site looks okay. Lower extremity has chronic venous stasis with lymphedema. Right foot has transmetatarsal amputation with skin graft, right lateral wound necrotic, no purulence tracking into the plantar surface, there is a small wound in the left heel. No drainage. Clean base. NEUROLOGIC: Alert, oriented, awake, moves all 4 extremities. PSYCHIATRIC: Appropriate mood and affect. DERMATOLOGIC: Warm, dry. No generalized rash. LABORATORY DATA: WBC 10.0, hemoglobin 8.5, hematocrit 26.6, platelets 327, neutrophils 76%. Sodium 137, potassium 4.1, chloride 99, bicarbonate 27, BUN 34, creatinine 5.5, glucose 180, calcium 8.6, phosphorus 4.0, magnesium 2.1, total bilirubin 0.4, AST 22, ALT 16, alkaline phosphatase 140. C-reactive protein 74, total protein 6.9, albumin 2.3. IMPRESSION: 1. Right lateral foot diabetic necrotic wound. 2. History of right transmetatarsal amputation in the past with skin graft placement. 3. Small left heel wound, not infected. 4. Diabetes mellitus with peripheral neuropathy. 5. Peripheral arterial disease. 6. End-stage renal disease, on dialysis through AV fistula, right upper extremity. 7. Morbid obesity. 8. Generalized debility. 9. [facility] resident. RECOMMENDATIONS: 1. Continue empiric IV Zosyn and Zyvox. 2. Zosyn renally dosed. 3. Awaiting Vascular Surgery. We will likely need debridement. 4. Continue local wound care. 5. Elevate right lower extremity. 6. Monitor left heel wound closely. 7. Follow up labs and cultures. 8. Continue supportive care. Thank you, Dr. Street, for consulting Infectious Disease to participate in this patient's care. We will follow along with you. LARISA MONTAGUE MD DR: Chun JOB#: [id number] / [id number] CHERYL
[2019-04-24] MEDS: METOCLOPRAMIDE 5 MG TABLET. PO SCH (20:49)
[2019-04-24] MEDS: ATORVASTATIN CALCIUM 40 MG TABLET. PO SCH (20:50)
[2019-04-24] MEDS: traMADol 50 MG TABLET PO PRN (20:50)
[2019-04-24] MEDS ORDERED: ATORVASTATIN CALCIUM 40 MG TABLET. PO SCH (21:00)
[2019-04-24] MEDS ORDERED: LACTOBACILLUS RHAMNOSUS GG 1 CAPSULE. PO SCH (21:00)
--- NOTE | 2019-04-24 21:25 | EKG ---
[facility] [address] [place] [address] Test Date: 2019-04-24 Test Time: 21:11:45 Pat Name: NARENDRA MACIAS Department: Room: [facility] Gender: M Public Service Representative: UCHE : 1940 Requested By: KIMI TIDWELL Order Number: [id number] Reading MD: Measurements Intervals [place] Rate: 75 P: [place]: QRS: 110 QRSD: 186 T: -75 QT: 472 QTc: 530 Interpretive Statements REGULAR RHYTHM, NO P WAVE FOUND RIGHTWARD AXIS NON SPECIFIC INTRAVENTRICULAR BLOCK ABNORMAL ECG RI6.01 No previous ECG available for comparison
--- NOTE | 2019-04-24 21:30 | NUR ---
Pt insisting this nurse remove post-dialysis AV dressing since return from dialysis this evening. Despite this nurse advising pt to keep dressing on, pt removed it at this time stating, "I've been in dialysis for 15 years and I can take it off when I want". Pt remains in bed, eating dinner with call light within reach, this nurse will continue to monitor.
[2019-04-24 23:00] VITALS: BP 115/52
--- NOTE | 2019-04-25 01:31 | NUR ---
Pt upset that he, "...isn't getting his pain medications on time". This nurse explained that pt's tramadol is scheduled every 6 hours and his next available dose is at 0250. Pt states, "I'm going to talk to the doctor because that's not right. I'm suppose to get pain medicine every 4 hours when I want it". Pt offered PRN dose of Tylenol and declined, will continue to monitor.
[2019-04-25] MEDS: traMADol 50 MG TABLET PO PRN ×3 (02:51→17:53)
[2019-04-25 03:00] VITALS: BP 123/61
[2019-04-25] MEDS: PANTOPRAZOLE 40 MG TABLET.DR. PO SCH (06:11)
[2019-04-25] MEDS: PIPERACILLIN/TAZOBACTAM 2.25 GM in IV NORMAL SALINE 50ML 50 ML IV SCH ×3 (06:11→21:52)
[2019-04-25] MEDS: METOCLOPRAMIDE 5 MG TABLET. PO SCH ×3 (06:11→17:53)
[2019-04-25 07:00] VITALS: BP 125/62
[2019-04-25] MEDS ORDERED: PANTOPRAZOLE 40 MG TABLET.DR. PO SCH (07:30)
[2019-04-25] MEDS: INSULIN LISPRO 300 UNITS/3 ML INSULN.PEN. SQ SCH ×3 (08:00→17:00)
[2019-04-25] MEDS ORDERED: CLOPIDOGREL BISULFATE 75 MG TABLET PO SCH (08:00)
[2019-04-25] MEDS ORDERED: ASPIRIN 325 MG TABLET PO SCH (08:00)
[2019-04-25] MEDS: CYANOCOBALAMIN (VITAMIN B-12) 1,000 MCG TABLET. PO SCH (08:48)
[2019-04-25] MEDS: ALLOPURINOL 100 MG TABLET. PO SCH (08:48)
[2019-04-25] MEDS: SEVELAMER CARBONATE 800 MG TABLET. PO SCH ×3 (08:48→17:53)
[2019-04-25] MEDS: LACTOBACILLUS RHAMNOSUS GG 1 CAPSULE. PO SCH ×2 (08:48→21:50)
[2019-04-25] MEDS: FOLIC/VIT B COMP W-C (RENAL) TABLET. PO SCH (08:48)
[2019-04-25] MEDS: ASPIRIN ENTERIC COATED 81 MG TABLET.DR. PO SCH (08:48)
[2019-04-25] MEDS: CHOLECALCIFEROL (VITAMIN D3) 1,000 UNIT TABLET PO SCH (08:48)
[2019-04-25] MEDS: ACETAMINOPHEN 325 MG TABLET. PO SCH ×4 (08:48→21:50)
[2019-04-25] MEDS: CLOPIDOGREL BISULFATE 75 MG TABLET PO SCH (08:48)
[2019-04-25] MEDS ORDERED: CHOLECALCIFEROL (VITAMIN D3) 1,000 UNIT TABLET PO SCH (09:00)
[2019-04-25] MEDS ORDERED: ALLOPURINOL 100 MG TABLET. PO SCH (09:00)
[2019-04-25] MEDS ORDERED: CYANOCOBALAMIN (VITAMIN B-12) 1,000 MCG TABLET. PO SCH (09:00)
--- NOTE | 2019-04-25 09:17 | PDOC ---
Infectious Disease Note Subjective: Subjective pt says doing ok no f/c/n/v/d ROS: ROS Negative except for above. Vital Signs: Vital Signs Vital Signs Date Time Temp Pulse Resp B/P (MAP) Pulse Ox O2 Delivery O2 Flow Rate FiO2 04/25/19 08:48 Room Air 04/25/19 07:00 97.8 60 18 125/62 (83) 99 97.8 Physical Exam: PHYSICAL EXAM GENERAL: Alert, oriented, awake male lying in bed comfortably, in no acute distress, pleasant, cooperative. HEENT: Normocephalic, atraumatic, anicteric. No thrush. Oral mucosa moist. NECK: Supple. No JVD. No thyromegaly. LUNGS: Clear bilaterally. No wheezing. HEART: S1, S2. No gallops, or murmurs, or rubs. ABDOMEN: Soft, obese. Bowel sounds present, nontender, nondistended. EXTREMITIES: Right upper extremity has AV shunt, site looks okay. Lower extremity has chronic venous stasis with lymphedema. Right foot has transmetatarsal amputation with skin graft, right lateral wound necrotic, no purulence tracking into the plantar surface, there is a small wound in the left heel. No drainage. Clean base. NEUROLOGIC: Alert, oriented, awake, moves all 4 extremities. PSYCHIATRIC: Appropriate mood and affect. DERMATOLOGIC: Warm, dry. No generalized rash. Medications: Inpatient Meds: Current Medications Medications (Trade) Dose Ordered Sig/Bhavesh Start Time Stop Time Status Last Admin Dose Admin Acetaminophen (Tylenol) 325 mg QID 04/24/19 13:30 04/25/19 08:48 325 MG Allopurinol (Zyloprim) 100 mg DAILY 04/25/19 09:00 UNV Aspirin (Onesimo Aspirin) 81 mg DAILYWBKFT 04/25/19 08:00 UNV Aspirin (Ecotrin) 81 mg DAILYWBKFT 04/24/19 13:30 04/25/19 08:48 81 MG Atorvastatin Calcium (Lipitor) 40 mg QHS 04/24/19 21:00 UNV Clopidogrel Bisulfate (Plavix) 75 mg DAILYWBKFT 04/25/19 08:00 UNV Cyanocobalamin (Vitamin B-12) 1,000 mcg DAILY 04/25/19 09:00 UNV Dextrose (Dextrose 50%-Water Syringe) 12.5 gm PRN Q15MIN PRN 04/24/19 12:15 Diphenhydramine HCl (Benadryl) 25 mg PRN Q6HRS PRN 04/24/19 12:15 Info (PHARMACY MONITORING -- do not chart) 1 each PRN DAILY PRN 04/24/19 17:15 Insulin Human Lispro (HumaLOG) 0-6 UNITS BG 300-39... TIDWMEALS 04/24/19 17:00 UNV Lactobacillus Rhamnosus (Culturelle) 1 cap BID 04/24/19 21:00 UNV Linezolid/Dextrose 300 ml @ 300 mls/hr Q12HR 04/24/19 13:30 04/25/19 08:49 300 MLS/HR Magnesium Hydroxide (Milk Of Magnesia) 2,400 mg PRN DAILY PRN 04/24/19 12:15 UNV Metoclopramide HCl (Reglan) 5 mg TIDBFRMEAL 04/24/19 16:30 04/25/19 06:11 5 MG Ondansetron HCl (Zofran Odt) 4 mg PRN Q6HRS PRN 04/24/19 12:15 UNV Pantoprazole Sodium (Protonix) 20 mg DAILYAC 04/25/19 07:30 UNV Piperacillin Sod/ Tazobactam Sod 2.25 gm/Sodium Chloride 50 ml @ 100 mls/hr Q8HRS 04/24/19 14:00 UNV Sevelamer Carbonate (Renvela) 800 mg TIDWMEALS 04/24/19 17:00 UNV Sodium Chloride 1,000 ml @ 400 mls/hr Q2H30M PRN 04/24/19 17:00 04/24/19 23:00 DC Tramadol HCl (Ultram) 25 mg PRN Q6HRS PRN 04/24/19 12:15 UNV Vitamin B Complex/ Vitamin C (Krista-Beatriz) 1 tab DAILY 04/24/19 13:30 04/25/19 08:48 1 TAB Vitamin D (Vitamin D3) 1,000 unit DAILY 04/25/19 09:00 UNV Labs: Lab Laboratory Tests Test 04/24/19 12:00 04/24/19 14:45 04/24/19 16:05 5/27/19 20:37 Nasal Screen MRSA (PCR) Negative (Negative) Sodium Level 137 mmol/L (136-145) Potassium Level 4.1 mmol/L (3.5-5.1) Chloride Level 99 mmol/L (98-107) Carbon Dioxide Level 27 mmol/L (21-32) Anion Gap 11 (6-14) Blood Urea Nitrogen 74 mg/dL (8-26) Creatinine 5.5 mg/dL (0.7-1.3) Estimated GFR (Cockcroft-Gault) 12.2 BUN/Creatinine Ratio 13 (6-20) Glucose Level 180 mg/dL (70-99) Calcium Level 8.6 mg/dL (8.5-10.1) Phosphorus Level 4.0 mg/dL (2.6-4.7) Magnesium Level 2.1 mg/dL (1.8-2.4) Total Bilirubin 0.4 mg/dL (0.2-1.0) Aspartate Amino Transf (AST/SGOT) 22 U/L (15-37) Alanine Aminotransferase (ALT/SGPT) 16 U/L (16-63) Alkaline Phosphatase 140 U/L (46-116) C-Reactive Protein, Quantitative 74.0 mg/L (0-3.3) Total Protein 6.9 g/dL (6.4-8.2) Albumin 2.3 g/dL (3.4-5.0) Albumin/Globulin Ratio 0.5 (1.0-1.7) White Blood Count 10.0 x10^3/uL (4.0-11.0) Red Blood Count 3.09 x10^6/uL (4.30-5.70) Hemoglobin 8.5 g/dL (13.0-17.5) Hematocrit 26.6 % (39.0-53.0) Mean Corpuscular Volume 86 fL (79-100) Mean Corpuscular Hemoglobin 28 pg (25-35) Mean Corpuscular Hemoglobin Concent 32 g/dL (31-37) Red Cell Distribution Width 19.3 % (11.5-14.5) Platelet Count 327 x10^3/uL (140-400) Neutrophils (%) (Auto) 76 % (31-73) Lymphocytes (%) (Auto) 13 % (24-48) Monocytes (%) (Auto) 6 % (0-9) Eosinophils (%) (Auto) 4 % (0-3) Basophils (%) (Auto) 1 % (0-3) Neutrophils # (Auto) 7.6 x10^3uL (1.8-7.7) Lymphocytes # (Auto) 1.3 x10^3/uL (1.0-4.8) Monocytes # (Auto) 0.6 x10^3/uL (0.0-1.1) Eosinophils # (Auto) 0.4 x10^3/uL (0.0-0.7) Basophils # (Auto) 0.1 x10^3/uL (0.0-0.2) Erythrocyte Sedimentation Rate 100 (0-15) Glucose (Fingerstick) 76 mg/dL (70-99) Test 04/25/19 07:37 Glucose (Fingerstick) 107 mg/dL (70-99) Micro rt lateral foot wound c/s sent Objective: Assessment: RT Lateral necrotic foot wound S/P RT TMA with graft Lt heel superfical wound not infected DM with neuropathy ESRD on HD Anemia of chroniic disease Chronic lymphedema Chronic venous stasis PAD Plan: Plan of Care Cont zosyn renal dosing Zyvox vascular is planning for further surgery Cont wound care D/W LARISA FARRELL MD April 25, 2019 09:17
--- NOTE | 2019-04-25 09:21 | NUR ---
Pt has a hx of VRE of a R foot wound on 11/02/18. Pt admitted with wound. Pt to remain in contact precautions.
--- NOTE | 2019-04-25 10:22 | PDOC2 ---
CONSULT Date of Consult Date of Consult DATE: 04/25/19 TIME: 10:17 Reason for Consult Reason for Consult: ESRD Referring Physician Referring Physician: YAW Identification/Chief Complaint Chief Complaint FOOT WOUND Source Source: Chart review History of Present Illness Reason for Visit: THIS IS A 78 YR OLD ESRD PT. HE HAS A RIGHT FOOT WOUND. 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 CURRENTLY HAS A LATERAL ASPECT WOUND. HAS OP HD ON MWF. ESRD IS DUE TO DM II AND HTN Past Medical History Cardiovascular: CAD, CHF, HTN, ID, Hyperlipidemia Pulmonary: COPD CENTRAL NERVOUS SYSTEM: Dementia, Periperal neuropathy GI: Constipation Heme/Onc: Anemia NOS Renal/: Chronic renal insuff Endocrine: Diabetes Past Surgical History Past Surgical History: Other (previous percutaneous interventions with stenting, right transmetatarsal amputation, left first toe amputation) Family History Family History: Diabetes, Hypertension Social History Quit ALCOHOL: none Drugs: None Lives: Fdc Current Medications Current Medications Current Medications Linezolid/Dextrose 300 ml @ 300 mls/hr Q12HR IV Last administered on 04/25/19at 08:49; Start 04/24/19 at 13:30 Piperacillin Sod/ Tazobactam Sod 2.25 gm/Sodium Chloride 50 ml @ 100 mls/hr Q8HRS IV Last administered on 04/25/19at 06:11; Start 04/24/19 at 14:00 Magnesium Hydroxide (Milk Of Magnesia) 2,400 mg PRN DAILY PRN PO CONSTIPATION; Start 04/24/19 at 12:15 Ondansetron HCl (Zofran Odt) 4 mg PRN Q6HRS PRN PO NAUSEA/VOMITING, 1st CHOICE; Start 04/24/19 at 12:15 Tramadol HCl (Ultram) 25 mg PRN Q6HRS PRN PO MODERATE-SEVERE PAIN Last administered on 04/25/19at 08:48; Start 04/24/19 at 12:15 Aspirin (Ecotrin) 81 mg DAILYWBKFT PO Last administered on 04/25/19at 08:48; Start 04/24/19 at 13:30 Sevelamer Carbonate (Renvela) 800 mg TIDWMEALS PO Last administered on 04/25/19at 08:48; Start 04/24/19 at 13:30 Cyanocobalamin (Vitamin B-12) 1,000 mcg DAILY PO Last administered on 04/25/19 08:48; Start 04/24/19 at 13:30 Allopurinol (Zyloprim) 100 mg DAILY PO Last administered on 04/25/19 08:48; Start 04/24/19 at 13:30 Atorvastatin Calcium (Lipitor) 40 mg QHS PO Last administered on 04/24/19at 20:50; Start 04/24/19 at 21:00 Acetaminophen (Tylenol) 325 mg PRN QID PRN PO MILD PAIN / TEMP; Start 04/24/19 at 12:15 Clopidogrel Bisulfate (Plavix) 75 mg DAILYWBKFT PO Last administered on 04/25/19 08:48; Start 04/24/19 at 13:30 Metoclopramide HCl (Reglan) 5 mg PRN BFRMEALHC PRN PO NAUSEA/VOMITING, 2nd CHOICE; Start 04/24/19 at 12:15 Vitamin D (Vitamin D3) 1,000 unit DAILY PO Last administered on 04/25/19 08:48; Start 04/24/19 at 13:30 Pantoprazole Sodium (Protonix) 40 mg DAILYAC PO Last administered on 04/25/19 06:11; Start 04/24/19 at 13:30 Insulin Human Lispro (HumaLOG) 0-5 UNITS TIDWMEALS SQ ; Start 04/24/19 at 17:00 Dextrose (Dextrose 50%-Water Syringe) 12.5 gm PRN Q15MIN PRN IV SEE COMMENTS; Start 04/24/19 at 12:15 Lactobacillus Rhamnosus (Culturelle) 1 cap BID PO Last administered on 04/25/19 08:48; Start 04/24/19 at 13:30 Vitamin B Complex/ Vitamin C (Krista-Beatriz) 1 tab DAILY PO Last administered on 04/25/19 08:48; Start 04/24/19 at 13:30 Piperacillin Sod/ Tazobactam Sod 2.25 gm/Sodium Chloride 50 ml @ 100 mls/hr Q8HRS IV ; Start 04/24/19 at 14:00; Status UNV Clopidogrel Bisulfate (Plavix) 75 mg DAILYWBKFT PO ; Start 04/25/19 at 08:00; Status UNV Metoclopramide HCl (Reglan) 5 mg TIDBFRMEAL PO Last administered on 04/25/19at 06:11; Start 04/24/19 at 16:30 Vitamin D (Vitamin D3) 1,000 unit DAILY PO ; Start 04/25/19 at 09:00; Status UNV Pantoprazole Sodium (Protonix) 20 mg DAILYAC PO ; Start 04/25/19 at 07:30; Status UNV Aspirin (Onesimo Aspirin) 81 mg DAILYWBKFT PO ; Start 04/25/19 at 08:00; Status UNV Sevelamer Carbonate (Renvela) 800 mg TIDWMEALS PO ; Start 04/24/19 at 17:00; Status UNV Cyanocobalamin (Vitamin B-12) 1,000 mcg DAILY PO ; Start 04/25/19 at 09:00; Status UNV Lactobacillus Rhamnosus (Culturelle) 1 cap BID PO ; Start 04/24/19 at 21:00; Status UNV Allopurinol (Zyloprim) 100 mg DAILY PO ; Start 04/25/19 at 09:00; Status UNV Atorvastatin Calcium (Lipitor) 40 mg QHS PO ; Start 04/24/19 at 21:00; Status UNV Acetaminophen (Tylenol) 325 mg PRN Q6HRS PRN PO MILD PAIN / TEMP; Start 04/24/19 at 12:15; Status UNV Acetaminophen (Tylenol) 325 mg QID PO Last administered on 04/25/19at 08:48; Start 04/24/19 at 13:30 Ondansetron HCl (Zofran Odt) 4 mg PRN Q6HRS PRN PO NAUSEA/VOMITING; Start 04/24/19 at 12:15; Status UNV Tramadol HCl (Ultram) 25 mg PRN Q6HRS PRN PO PAIN; Start 04/24/19 at 12:15; Status UNV Diphenhydramine HCl (Benadryl) 25 mg PRN Q6HRS PRN PO ITCHING; Start 04/24/19 at 12:15 Magnesium Hydroxide (Milk Of Magnesia) 2,400 mg PRN DAILY PRN PO CONSTIPATION; Start 04/24/19 at 12:15; Status UNV Insulin Human Lispro (HumaLOG) 0-6 UNITS BG 300-39... TIDWMEALS SQ ; Start 04/24/19 at 17:00; Status UNV Sodium Chloride 1,000 ml @ 1,000 mls/hr Q1H PRN IV hypotension; Start 04/24/19 at 17:00; Stop 04/24/19 at 23:00; Status DC Sodium Chloride 1,000 ml @ 400 mls/hr Q2H30M PRN IV PATENCY; Start 04/24/19 at 17:00; Stop 04/24/19 at 23:00; Status DC Info (PHARMACY MONITORING -- do not chart) 1 each PRN DAILY PRN MC SEE COMMENTS; Start 04/24/19 at 17:15; Status UNV Info (PHARMACY MONITORING -- do not chart) 1 each PRN DAILY PRN MC SEE COMMENTS; Start 04/24/19 at 17:15 Active Scripts Active Cephalexin 250 Mg Capsule 500 Mg PO BID 14 Days Ondansetron Odt (Ondansetron) 4 Mg Tab.rapdis 4 Mg PO Q6HRS PRN Metoclopramide Hcl 5 Mg Tablet 5 Mg PO TIDACHC Humalog (Insulin Lispro) 100 Unit/1 Ml Insuln.pen 0 Units SQ TIDWMEALS 30 Days BG 150-199= 1 units 200-299= 2 units 300-399= 4 units 400-499= 6 units ac tid sliding scale Reported Zofran (Ondansetron Hcl) 4 Mg Tablet 1 Tab PO Q6HRS Vitamin D3 (Cholecalciferol (Vitamin D3)) 1,000 Unit Tablet 1 Tab PO DAILY Vitamin B-12 (Cyanocobalamin (Vitamin B-12)) 1,000 Mcg Tablet 1 Tab PO DAILY Tylenol (Acetaminophen) 325 Mg Tablet 325 Mg PO QID Tylenol (Acetaminophen) 325 Mg Tablet 1 Tab PO PRN Q4HRS Tramadol Hcl 50 Mg Tablet 25 Mg PO Q6HRS PRN Senna (Sennosides) 8.6 Mg Tablet 8.6 Mg PO PRN DAILY PRN 2 tabs Renvela (Sevelamer Carbonate) 800 Mg Tablet 800 Mg PO TIDWMEALS Renal Caps Softgel (Folic Acid/Vitamin B Comp W-C) 1 Mg Capsule 1 Mg PO DAILY Reglan (Metoclopramide Hcl) 10 Mg Tablet 5 Mg PO TID Protonix (Pantoprazole Sodium) 20 Mg Tablet.dr 1 Tab PO DAILY Probiotic (Lactobacillus Acidophilus) 1 Each Capsule 1 Each PO BID Milk Of Magnesia (Magnesium Hydroxide) 400 Mg/5 Ml Oral.susp 400 Mg PO PRN DAILY PRN Lipitor (Atorvastatin Calcium) 40 Mg Tablet 1 Tab PO QHS Skin Treatment (Ammonium Lactate) 225 Gm Lotion 225 Gm TP BID Humalog (Insulin Lispro) 100 Unit/1 Ml Insuln.pen 100 Unit SQ TIDBFRMEAL 150-199=1 unit 200-299=2 units 300-399=4 units 100-499=6 units Duoneb 0.5-3(2.5) Mg/3 Ml (Albuterol/Ipratropium) 3 Ml Ampul.neb 3 Ml NEB PRN Q4HRS PRN Clopidogrel (Clopidogrel Bisulfate) 75 Mg Tablet 1 Tab PO DAILY Clindamycin Hcl 150 Mg Capsule 150 Mg PO TID Dulcolax (Bisacodyl) 10 Mg Supp.rect 10 Mg RC PRN DAILY PRN Benadryl Allergy (Diphenhydramine Hcl) 12.5 Mg/5 Ml Liquid 10 Ml PO PRN Q6-8HRS Aspir-Low (Aspirin) 81 Mg Tablet.dr 1 Tab PO DAILY Allopurinol 100 Mg Tablet 1 Tab PO DAILY Tramadol Hcl 50 Mg Tablet 0.5 Mg PO PRN Q6HRS PRN Senna (Sennosides) 8.6 Mg Tablet 2 Tab PO PRN DAILY PRN Bisacodyl 10 Mg Supp.rect 10 Mg RC PRN DAILY PRN Protonix (Pantoprazole Sodium) 20 Mg Tablet.dr 1 Tab PO DAILY Duoneb 0.5-3(2.5) Mg/3 Ml (Albuterol/Ipratropium) 3 Ml Ampul.neb 3 Ml NEB PRN Q4HRS PRN Milk Of Magnesia (Magnesium Hydroxide) 400 Mg/5 Ml Oral.susp 400 Mg PO PRN DAILY PRN Lac-Hydrin Five (Ammonium Lactate) 226 Gm Lotion 226 Gm TP BID Benadryl Allergy (Diphenhydramine Hcl) 12.5 Mg/5 Ml Liquid 25 Mg PO PRN Q6HRS PRN Vitamin B-12 (Cyanocobalamin (Vitamin B-12)) 1,000 Mcg Tablet 1 Tab PO DAILY Allopurinol 100 Mg Tablet 1 Tab PO DAILY Renal Caps Softgel (Folic Acid/Vitamin B Comp W-C) 1 Mg Capsule 1 Cap PO DAILY Acidophilus Lactobacilli (Lactobacillus Acidophilus) 1 Each Capsule 1 Each PO BID Renvela (Sevelamer Carbonate) 800 Mg Tablet 800 Mg PO TIDWMEALS Tylenol (Acetaminophen) 325 Mg Tablet 1 Tab PO PRN Q4HRS Aspirin 81 Mg Tab.chew 81 Mg PO DAILY Lipitor (Atorvastatin Calcium) 40 Mg Tablet 40 Mg PO HS Clopidogrel (Clopidogrel Bisulfate) 75 Mg Tablet 75 Mg PO DAILY Vitamin D-3 (Cholecalciferol (Vitamin D3)) 2,000 Unit Capsule 1,000 Unit PO DAILY Allergies Allergies: Coded Allergies: I S O L A T I O N *CONTACT* (Verified Allergy, Unknown, 04/25/19) vre No Known Medication Allergies (Verified Allergy, Unknown, 04/25/19) ROS General: YES: Fatigue PSYCHOLOGICAL ROS: YES: Depression HEENT: YES: Heacaches Respiratory: YES: Cough Gastrointestinal: Yes Constipation Genitourinary: YES Other (ANURIA) Musculoskeletal: Yes Muscular Weakness Neurological: Yes Weakness Skin: Yes Dry Skin Physical Exam General: Alert, Cooperative HEENT: Atraumatic, PERRLA Lungs: Clear to auscultation Heart: Regular rate Abdomen: Normal bowel sounds, Soft, No tenderness Extremities: No clubbing Skin: No breakdown Neuro: Normal speech Psych/Mental Status: Mental status NL, Mood NL MUSCULOSKELETAL: Other (RIGHT TRANSMET AMP) Vitals VITALS Vital Signs Date Time Temp Pulse Resp B/P (MAP) Pulse Ox O2 Delivery O2 Flow Rate FiO2 04/25/19 08:48 Room Air 04/25/19 07:00 97.8 60 18 125/62 (83) 99 97.8 Labs Labs Laboratory Tests Test 04/24/19 12:00 04/24/19 14:45 04/24/19 16:05 04/24/19 20:37 Nasal Screen MRSA (PCR) Negative (Negative) Sodium Level 137 mmol/L (136-145) Potassium Level 4.1 mmol/L (3.5-5.1) Chloride Level 99 mmol/L (98-107) Carbon Dioxide Level 27 mmol/L (21-32) Anion Gap 11 (6-14) Blood Urea Nitrogen 74 mg/dL (8-26) Creatinine 5.5 mg/dL (0.7-1.3) Estimated GFR (Cockcroft-Gault) 12.2 BUN/Creatinine Ratio 13 (6-20) Glucose Level 180 mg/dL (70-99) Calcium Level 8.6 mg/dL (8.5-10.1) Phosphorus Level 4.0 mg/dL (2.6-4.7) Magnesium Level 2.1 mg/dL (1.8-2.4) Total Bilirubin 0.4 mg/dL (0.2-1.0) Aspartate Amino Transf (AST/SGOT) 22 U/L (15-37) Alanine Aminotransferase (ALT/SGPT) 16 U/L (16-63) Alkaline Phosphatase 140 U/L (46-116) C-Reactive Protein, Quantitative 74.0 mg/L (0-3.3) Total Protein 6.9 g/dL (6.4-8.2) Albumin 2.3 g/dL (3.4-5.0) Albumin/Globulin Ratio 0.5 (1.0-1.7) White Blood Count 10.0 x10^3/uL (4.0-11.0) Red Blood Count 3.09 x10^6/uL (4.30-5.70) Hemoglobin 8.5 g/dL (13.0-17.5) Hematocrit 26.6 % (39.0-53.0) Mean Corpuscular Volume 86 fL (79-100) Mean Corpuscular Hemoglobin 28 pg (25-35) Mean Corpuscular Hemoglobin Concent 32 g/dL (31-37) Red Cell Distribution Width 19.3 % (11.5-14.5) Platelet Count 327 x10^3/uL (140-400) Neutrophils (%) (Auto) 76 % (31-73) Lymphocytes (%) (Auto) 13 % (24-48) Monocytes (%) (Auto) 6 % (0-9) Eosinophils (%) (Auto) 4 % (0-3) Basophils (%) (Auto) 1 % (0-3) Neutrophils # (Auto) 7.6 x10^3uL (1.8-7.7) Lymphocytes # (Auto) 1.3 x10^3/uL (1.0-4.8) Monocytes # (Auto) 0.6 x10^3/uL (0.0-1.1) Eosinophils # (Auto) 0.4 x10^3/uL (0.0-0.7) Basophils # (Auto) 0.1 x10^3/uL (0.0-0.2) Erythrocyte Sedimentation Rate 100 (0-15) Glucose (Fingerstick) 76 mg/dL (70-99) Test 04/25/19 07:37 Glucose (Fingerstick) 107 mg/dL (70-99) Laboratory Tests Test 04/24/19 12:00 04/24/19 14:45 04/24/19 16:05 04/24/19 20:37 Nasal Screen MRSA (PCR) Negative (Negative) Sodium Level 137 mmol/L (136-145) Potassium Level 4.1 mmol/L (3.5-5.1) Chloride Level 99 mmol/L (98-107) Carbon Dioxide Level 27 mmol/L (21-32) Anion Gap 11 (6-14) Blood Urea Nitrogen 74 mg/dL (8-26) Creatinine 5.5 mg/dL (0.7-1.3) Estimated GFR (Cockcroft-Gault) 12.2 BUN/Creatinine Ratio 13 (6-20) Glucose Level 180 mg/dL (70-99) Calcium Level 8.6 mg/dL (8.5-10.1) Phosphorus Level 4.0 mg/dL (2.6-4.7) Magnesium Level 2.1 mg/dL (1.8-2.4) Total Bilirubin 0.4 mg/dL (0.2-1.0) Aspartate Amino Transf (AST/SGOT) 22 U/L (15-37) Alanine Aminotransferase (ALT/SGPT) 16 U/L (16-63) Alkaline Phosphatase 140 U/L (46-116) C-Reactive Protein, Quantitative 74.0 mg/L (0-3.3) Total Protein 6.9 g/dL (6.4-8.2) Albumin 2.3 g/dL (3.4-5.0) Albumin/Globulin Ratio 0.5 (1.0-1.7) White Blood Count 10.0 x10^3/uL (4.0-11.0) Red Blood Count 3.09 x10^6/uL (4.30-5.70) Hemoglobin 8.5 g/dL (13.0-17.5) Hematocrit 26.6 % (39.0-53.0) Mean Corpuscular Volume 86 fL (79-100) Mean Corpuscular Hemoglobin 28 pg (25-35) Mean Corpuscular Hemoglobin Concent 32 g/dL (31-37) Red Cell Distribution Width 19.3 % (11.5-14.5) Platelet Count 327 x10^3/uL (140-400) Neutrophils (%) (Auto) 76 % (31-73) Lymphocytes (%) (Auto) 13 % (24-48) Monocytes (%) (Auto) 6 % (0-9) Eosinophils (%) (Auto) 4 % (0-3) Basophils (%) (Auto) 1 % (0-3) Neutrophils # (Auto) 7.6 x10^3uL (1.8-7.7) Lymphocytes # (Auto) 1.3 x10^3/uL (1.0-4.8) Monocytes # (Auto) 0.6 x10^3/uL (0.0-1.1) Eosinophils # (Auto) 0.4 x10^3/uL (0.0-0.7) Basophils # (Auto) 0.1 x10^3/uL (0.0-0.2) Erythrocyte Sedimentation Rate 100 (0-15) Glucose (Fingerstick) 76 mg/dL (70-99) Test 04/25/19 07:37 Glucose (Fingerstick) 107 mg/dL (70-99) Assessment/Plan Assessment/Plan IMP RIGHT FOOT WOUND S/P RECENT TRANSMET AMP DM II ANEMIA HTN ESRD PAD PLAN HD MWF ANTIBIOTICS WOUND CARE CHAITANYA IGLESIAS MD April 25, 2019 10:22
--- NOTE | 2019-04-25 10:26 | PDOC ---
PROGRESS NOTES Subjective Subjective feels okay. comfortable. discussed that vascular surgeon recommended a right BKA later this week and he concurs with this. bowels are okay. eating okay. Objective Objective Vital Signs Date Time Temp Pulse Resp B/P (MAP) Pulse Ox O2 Delivery O2 Flow Rate FiO2 04/25/19 08:48 Room Air 04/25/19 07:00 97.8 60 18 125/62 (83) 99 97.8 Intake and Output 04/25/19 07:00 Intake Total 800 ml Output Total 150 ml Balance 650 ml Intake Oral 450 ml IV Total 350 ml Output Urine Total 150 ml Physical Exam Abdomen: Soft, Other (obese) Heart: Regular rate, Normal S1, Normal S2 Extremities: Other (trace edema) General: Alert HEENT: Atraumatic Lungs: Clear to auscultation Neuro: Normal speech Psych/Mental Status: Mental status NL Skin: No rashes, Other (right TMA with dry dressing) Assessment Assessment 1. Infected right lateral foot wound. 2. History of right transmetatarsal amputation with skin graft. 3. End-stage renal disease on hemodialysis. 4. Obstructive sleep apnea. 5. Diabetes mellitus type 2 with peripheral neuropathy. 6. Peripheral arterial disease. 7. Anemia of chronic disease. 8. Hyperlipidemia. 9. Morbid obesity. left heel wound Plan Plan of Care continue zyvox and zosyn wound care hemodialysis tomorrow right BKA later this week cardiology clearance for surgery Comment Review of Relevant I have reviewed the following items simeon (where applicable) has been applied. Labs Laboratory Tests Test 04/24/19 12:00 04/24/19 14:45 04/24/19 16:05 04/24/19 20:37 Nasal Screen MRSA (PCR) Negative (Negative) Sodium Level 137 mmol/L (136-145) Potassium Level 4.1 mmol/L (3.5-5.1) Chloride Level 99 mmol/L (98-107) Carbon Dioxide Level 27 mmol/L (21-32) Anion Gap 11 (6-14) Blood Urea Nitrogen 74 mg/dL (8-26) Creatinine 5.5 mg/dL (0.7-1.3) Estimated GFR (Cockcroft-Gault) 12.2 BUN/Creatinine Ratio 13 (6-20) Glucose Level 180 mg/dL (70-99) Calcium Level 8.6 mg/dL (8.5-10.1) Phosphorus Level 4.0 mg/dL (2.6-4.7) Magnesium Level 2.1 mg/dL (1.8-2.4) Total Bilirubin 0.4 mg/dL (0.2-1.0) Aspartate Amino Transf (AST/SGOT) 22 U/L (15-37) Alanine Aminotransferase (ALT/SGPT) 16 U/L (16-63) Alkaline Phosphatase 140 U/L (46-116) C-Reactive Protein, Quantitative 74.0 mg/L (0-3.3) Total Protein 6.9 g/dL (6.4-8.2) Albumin 2.3 g/dL (3.4-5.0) Albumin/Globulin Ratio 0.5 (1.0-1.7) White Blood Count 10.0 x10^3/uL (4.0-11.0) Red Blood Count 3.09 x10^6/uL (4.30-5.70) Hemoglobin 8.5 g/dL (13.0-17.5) Hematocrit 26.6 % (39.0-53.0) Mean Corpuscular Volume 86 fL (79-100) Mean Corpuscular Hemoglobin 28 pg (25-35) Mean Corpuscular Hemoglobin Concent 32 g/dL (31-37) Red Cell Distribution Width 19.3 % (11.5-14.5) Platelet Count 327 x10^3/uL (140-400) Neutrophils (%) (Auto) 76 % (31-73) Lymphocytes (%) (Auto) 13 % (24-48) Monocytes (%) (Auto) 6 % (0-9) Eosinophils (%) (Auto) 4 % (0-3) Basophils (%) (Auto) 1 % (0-3) Neutrophils # (Auto) 7.6 x10^3uL (1.8-7.7) Lymphocytes # (Auto) 1.3 x10^3/uL (1.0-4.8) Monocytes # (Auto) 0.6 x10^3/uL (0.0-1.1) Eosinophils # (Auto) 0.4 x10^3/uL (0.0-0.7) Basophils # (Auto) 0.1 x10^3/uL (0.0-0.2) Erythrocyte Sedimentation Rate 100 (0-15) Glucose (Fingerstick) 76 mg/dL (70-99) Test 04/25/19 07:37 Glucose (Fingerstick) 107 mg/dL (70-99) Laboratory Tests Test 04/24/19 12:00 04/24/19 14:45 04/24/19 16:05 04/24/19 20:37 Nasal Screen MRSA (PCR) Negative (Negative) Sodium Level 137 mmol/L (136-145) Potassium Level 4.1 mmol/L (3.5-5.1) Chloride Level 99 mmol/L (98-107) Carbon Dioxide Level 27 mmol/L (21-32) Anion Gap 11 (6-14) Blood Urea Nitrogen 74 mg/dL (8-26) Creatinine 5.5 mg/dL (0.7-1.3) Estimated GFR (Cockcroft-Gault) 12.2 BUN/Creatinine Ratio 13 (6-20) Glucose Level 180 mg/dL (70-99) Calcium Level 8.6 mg/dL (8.5-10.1) Phosphorus Level 4.0 mg/dL (2.6-4.7) Magnesium Level 2.1 mg/dL (1.8-2.4) Total Bilirubin 0.4 mg/dL (0.2-1.0) Aspartate Amino Transf (AST/SGOT) 22 U/L (15-37) Alanine Aminotransferase (ALT/SGPT) 16 U/L (16-63) Alkaline Phosphatase 140 U/L (46-116) C-Reactive Protein, Quantitative 74.0 mg/L (0-3.3) Total Protein 6.9 g/dL (6.4-8.2) Albumin 2.3 g/dL (3.4-5.0) Albumin/Globulin Ratio 0.5 (1.0-1.7) White Blood Count 10.0 x10^3/uL (4.0-11.0) Red Blood Count 3.09 x10^6/uL (4.30-5.70) Hemoglobin 8.5 g/dL (13.0-17.5) Hematocrit 26.6 % (39.0-53.0) Mean Corpuscular Volume 86 fL (79-100) Mean Corpuscular Hemoglobin 28 pg (25-35) Mean Corpuscular Hemoglobin Concent 32 g/dL (31-37) Red Cell Distribution Width 19.3 % (11.5-14.5) Platelet Count 327 x10^3/uL (140-400) Neutrophils (%) (Auto) 76 % (31-73) Lymphocytes (%) (Auto) 13 % (24-48) Monocytes (%) (Auto) 6 % (0-9) Eosinophils (%) (Auto) 4 % (0-3) Basophils (%) (Auto) 1 % (0-3) Neutrophils # (Auto) 7.6 x10^3uL (1.8-7.7) Lymphocytes # (Auto) 1.3 x10^3/uL (1.0-4.8) Monocytes # (Auto) 0.6 x10^3/uL (0.0-1.1) Eosinophils # (Auto) 0.4 x10^3/uL (0.0-0.7) Basophils # (Auto) 0.1 x10^3/uL (0.0-0.2) Erythrocyte Sedimentation Rate 100 (0-15) Glucose (Fingerstick) 76 mg/dL (70-99) Test 04/25/19 07:37 Glucose (Fingerstick) 107 mg/dL (70-99) Medications Current Medications Linezolid/Dextrose 300 ml @ 300 mls/hr Q12HR IV Last administered on 04/25/19at 08:49; Start 04/24/19 at 13:30 Piperacillin Sod/ Tazobactam Sod 2.25 gm/Sodium Chloride 50 ml @ 100 mls/hr Q8HRS IV Last administered on 04/25/19at 06:11; Start 04/24/19 at 14:00 Magnesium Hydroxide (Milk Of Magnesia) 2,400 mg PRN DAILY PRN PO CONSTIPATION; Start 04/24/19 at 12:15 Ondansetron HCl (Zofran Odt) 4 mg PRN Q6HRS PRN PO NAUSEA/VOMITING, 1st CHOICE; Start 04/24/19 at 12:15 Tramadol HCl (Ultram) 25 mg PRN Q6HRS PRN PO MODERATE-SEVERE PAIN Last administered on 04/25/19at 08:48; Start 04/24/19 at 12:15 Aspirin (Ecotrin) 81 mg DAILYWBKFT PO Last administered on 04/25/19 08:48; Start 04/24/19 at 13:30 Sevelamer Carbonate (Renvela) 800 mg TIDWMEALS PO Last administered on 04/25/19 08:48; Start 04/24/19 at 13:30 Cyanocobalamin (Vitamin B-12) 1,000 mcg DAILY PO Last administered on 04/25/19 08:48; Start 04/24/19 at 13:30 Allopurinol (Zyloprim) 100 mg DAILY PO Last administered on 04/25/19 08:48; Start 04/24/19 at 13:30 Atorvastatin Calcium (Lipitor) 40 mg QHS PO Last administered on 04/24/19 20:50; Start 04/24/19 at 21:00 Acetaminophen (Tylenol) 325 mg PRN QID PRN PO MILD PAIN / TEMP; Start 04/24/19 at 12:15 Clopidogrel Bisulfate (Plavix) 75 mg DAILYWBKFT PO Last administered on 04/25/19 08:48; Start 04/24/19 at 13:30 Metoclopramide HCl (Reglan) 5 mg PRN BFRMEALHC PRN PO NAUSEA/VOMITING, 2nd CHOICE; Start 04/24/19 at 12:15 Vitamin D (Vitamin D3) 1,000 unit DAILY PO Last administered on 04/25/19 08:48; Start 04/24/19 at 13:30 Pantoprazole Sodium (Protonix) 40 mg DAILYAC PO Last administered on 04/25/19 06:11; Start 04/24/19 at 13:30 Insulin Human Lispro (HumaLOG) 0-5 UNITS TIDWMEALS SQ ; Start 04/24/19 at 17:00 Dextrose (Dextrose 50%-Water Syringe) 12.5 gm PRN Q15MIN PRN IV SEE COMMENTS; Start 04/24/19 at 12:15 Lactobacillus Rhamnosus (Culturelle) 1 cap BID PO Last administered on 04/25/19 08:48; Start 04/24/19 at 13:30 Vitamin B Complex/ Vitamin C (Krista-Beatriz) 1 tab DAILY PO Last administered on 04/25/19 08:48; Start 04/24/19 at 13:30 Piperacillin Sod/ Tazobactam Sod 2.25 gm/Sodium Chloride 50 ml @ 100 mls/hr Q8HRS IV ; Start 04/24/19 at 14:00; Status UNV Clopidogrel Bisulfate (Plavix) 75 mg DAILYWBKFT PO ; Start 04/25/19 at 08:00; Status UNV Metoclopramide HCl (Reglan) 5 mg TIDBFRMEAL PO Last administered on 04/25/19at 06:11; Start 04/24/19 at 16:30 Vitamin D (Vitamin D3) 1,000 unit DAILY PO ; Start 04/25/19 at 09:00; Status UNV Pantoprazole Sodium (Protonix) 20 mg DAILYAC PO ; Start 04/25/19 at 07:30; Status UNV Aspirin (Onesimo Aspirin) 81 mg DAILYWBKFT PO ; Start 04/25/19 at 08:00; Status UNV Sevelamer Carbonate (Renvela) 800 mg TIDWMEALS PO ; Start 04/24/19 at 17:00; Status UNV Cyanocobalamin (Vitamin B-12) 1,000 mcg DAILY PO ; Start 04/25/19 at 09:00; Status UNV Lactobacillus Rhamnosus (Culturelle) 1 cap BID PO ; Start 04/24/19 at 21:00; Status UNV Allopurinol (Zyloprim) 100 mg DAILY PO ; Start 04/25/19 at 09:00; Status UNV Atorvastatin Calcium (Lipitor) 40 mg QHS PO ; Start 04/24/19 at 21:00; Status UNV Acetaminophen (Tylenol) 325 mg PRN Q6HRS PRN PO MILD PAIN / TEMP; Start 03/30 06/16 at 12:15; Status UNV Acetaminophen (Tylenol) 325 mg QID PO Last administered on 04/25/19at 08:48; Start 04/24/19 at 13:30 Ondansetron HCl (Zofran Odt) 4 mg PRN Q6HRS PRN PO NAUSEA/VOMITING; Start 04/24/19 at 12:15; Status UNV Tramadol HCl (Ultram) 25 mg PRN Q6HRS PRN PO PAIN; Start 04/24/19 at 12:15; Status UNV Diphenhydramine HCl (Benadryl) 25 mg PRN Q6HRS PRN PO ITCHING; Start 04/24/19 at 12:15 Magnesium Hydroxide (Milk Of Magnesia) 2,400 mg PRN DAILY PRN PO CONSTIPATION; Start 04/24/19 at 12:15; Status UNV Insulin Human Lispro (HumaLOG) 0-6 UNITS BG 300-39... TIDWMEALS SQ ; Start 04/24/19 at 17:00; Status UNV Sodium Chloride 1,000 ml @ 1,000 mls/hr Q1H PRN IV hypotension; Start 04/24/19 at 17:00; Stop 04/24/19 at 23:00; Status DC Sodium Chloride 1,000 ml @ 400 mls/hr Q2H30M PRN IV PATENCY; Start 04/24/19 at 17:00; Stop 04/24/19 at 23:00; Status DC Info (PHARMACY MONITORING -- do not chart) 1 each PRN DAILY PRN MC SEE COMMENTS; Start 04/24/19 at 17:15; Status UNV Info (PHARMACY MONITORING -- do not chart) 1 each PRN DAILY PRN MC SEE COMMENTS; Start 04/24/19 at 17:15 Active Scripts Active Cephalexin 250 Mg Capsule 500 Mg PO BID 14 Days Ondansetron Odt (Ondansetron) 4 Mg Tab.rapdis 4 Mg PO Q6HRS PRN Metoclopramide Hcl 5 Mg Tablet 5 Mg PO TIDACHC Humalog (Insulin Lispro) 100 Unit/1 Ml Insuln.pen 0 Units SQ TIDWMEALS 30 Days BG 150-199= 1 units 200-299= 2 units 300-399= 4 units 400-499= 6 units ac tid sliding scale Reported Zofran (Ondansetron Hcl) 4 Mg Tablet 1 Tab PO Q6HRS Vitamin D3 (Cholecalciferol (Vitamin D3)) 1,000 Unit Tablet 1 Tab PO DAILY Vitamin B-12 (Cyanocobalamin (Vitamin B-12)) 1,000 Mcg Tablet 1 Tab PO DAILY Tylenol (Acetaminophen) 325 Mg Tablet 325 Mg PO QID Tylenol (Acetaminophen) 325 Mg Tablet 1 Tab PO PRN Q4HRS Tramadol Hcl 50 Mg Tablet 25 Mg PO Q6HRS PRN Senna (Sennosides) 8.6 Mg Tablet 8.6 Mg PO PRN DAILY PRN 2 tabs Renvela (Sevelamer Carbonate) 800 Mg Tablet 800 Mg PO TIDWMEALS Renal Caps Softgel (Folic Acid/Vitamin B Comp W-C) 1 Mg Capsule 1 Mg PO DAILY Reglan (Metoclopramide Hcl) 10 Mg Tablet 5 Mg PO TID Protonix (Pantoprazole Sodium) 20 Mg Tablet.dr 1 Tab PO DAILY Probiotic (Lactobacillus Acidophilus) 1 Each Capsule 1 Each PO BID Milk Of Magnesia (Magnesium Hydroxide) 400 Mg/5 Ml Oral.susp 400 Mg PO PRN DAILY PRN Lipitor (Atorvastatin Calcium) 40 Mg Tablet 1 Tab PO QHS Skin Treatment (Ammonium Lactate) 225 Gm Lotion 225 Gm TP BID Humalog (Insulin Lispro) 100 Unit/1 Ml Insuln.pen 100 Unit SQ TIDBFRMEAL 150-199=1 unit 200-299=2 units 300-399=4 units 100-499=6 units Duoneb 0.5-3(2.5) Mg/3 Ml (Albuterol/Ipratropium) 3 Ml Ampul.neb 3 Ml NEB PRN Q4HRS PRN Clopidogrel (Clopidogrel Bisulfate) 75 Mg Tablet 1 Tab PO DAILY Clindamycin Hcl 150 Mg Capsule 150 Mg PO TID Dulcolax (Bisacodyl) 10 Mg Supp.rect 10 Mg RC PRN DAILY PRN Benadryl Allergy (Diphenhydramine Hcl) 12.5 Mg/5 Ml Liquid 10 Ml PO PRN Q6-8HRS Aspir-Low (Aspirin) 81 Mg Tablet.dr 1 Tab PO DAILY Allopurinol 100 Mg Tablet 1 Tab PO DAILY Tramadol Hcl 50 Mg Tablet 0.5 Mg PO PRN Q6HRS PRN Senna (Sennosides) 8.6 Mg Tablet 2 Tab PO PRN DAILY PRN Bisacodyl 10 Mg Supp.rect 10 Mg RC PRN DAILY PRN Protonix (Pantoprazole Sodium) 20 Mg Tablet.dr 1 Tab PO DAILY Duoneb 0.5-3(2.5) Mg/3 Ml (Albuterol/Ipratropium) 3 Ml Ampul.neb 3 Ml NEB PRN Q4HRS PRN Milk Of Magnesia (Magnesium Hydroxide) 400 Mg/5 Ml Oral.susp 400 Mg PO PRN DAILY PRN Lac-Hydrin Five (Ammonium Lactate) 226 Gm Lotion 226 Gm TP BID Benadryl Allergy (Diphenhydramine Hcl) 12.5 Mg/5 Ml Liquid 25 Mg PO PRN Q6HRS PRN Vitamin B-12 (Cyanocobalamin (Vitamin B-12)) 1,000 Mcg Tablet 1 Tab PO DAILY Allopurinol 100 Mg Tablet 1 Tab PO DAILY Renal Caps Softgel (Folic Acid/Vitamin B Comp W-C) 1 Mg Capsule 1 Cap PO DAILY Acidophilus Lactobacilli (Lactobacillus Acidophilus) 1 Each Capsule 1 Each PO BID Renvela (Sevelamer Carbonate) 800 Mg Tablet 800 Mg PO TIDWMEALS Tylenol (Acetaminophen) 325 Mg Tablet 1 Tab PO PRN Q4HRS Aspirin 81 Mg Tab.chew 81 Mg PO DAILY Lipitor (Atorvastatin Calcium) 40 Mg Tablet 40 Mg PO HS Clopidogrel (Clopidogrel Bisulfate) 75 Mg Tablet 75 Mg PO DAILY Vitamin D-3 (Cholecalciferol (Vitamin D3)) 2,000 Unit Capsule 1,000 Unit PO DAILY Vitals/I & O Vital Sign - Last 24 Hours 04/24/19 04/24/19 04/24/19 04/24/19 11:00 12:00 20:30 20:41 Temp 97.9 97.8 97.9 97.8 Pulse 75 68 Resp 16 18 B/P (MAP) 144/71 (95) 134/68 (90) Pulse Ox 96 97 O2 Delivery Room Air Room Air Room Air Room Air 04/24/19 04/24/19 04/25/19 04/25/19 20:50 23:00 02:51 03:00 Temp 97.9 97.5 97.9 97.5 Pulse 72 66 Resp 18 18 18 18 B/P (MAP) 115/52 (73) 123/61 (81) Pulse Ox 98 98 O2 Delivery Room Air Room Air Room Air Room Air 04/25/19 04/25/19 04/25/19 04/25/19 04:18 07:00 07:38 08:48 Temp 97.8 97.8 Pulse 60 Resp 16 18 B/P (MAP) 125/62 (83) Pulse Ox 99 O2 Delivery Room Air Room Air Room Air Room Air Intake and Output 04/24/19 04/24/19 04/25/19 15:00 23:00 07:00 Intake Total 350 ml 450 ml Output Total 150 ml Balance 350 ml 300 ml KIMI TDIWELL MD April 25, 2019 10:26
--- NOTE | 2019-04-25 10:34 | NUR ---
ordered heel medic boots at this time, will place on pt when i receive them.
--- NOTE | 2019-04-25 10:34 | NUR ---
called consult to Dr. Henning at this time.
[2019-04-25 11:00] VITALS: BP 126/64
--- NOTE | 2019-04-25 12:29 | NUR ---
SW following for discharge planning. Discussed with RN, pt is from [facility] (confirmed). Pt has SNU days available so could return to [facility]U, pt having an amputation. PT/OT to see pt when appropriate. SW will continue to follow.
--- NOTE | 2019-04-25 13:20 | CARD ---
MR#: [id number] Date of Study: 04/25/2019 Ordering Physician: YULI GANDHI, Referring Physician: KIMI TIDWELL Tech: Marcela William RDCS APPROVED REPORT EXAM: Two-dimensional and M-mode echocardiogram with Doppler and color Doppler. Other Information Quality : Good INDICATION Pre-Op Cardiac Disease: CAD Congestive Heart Failure 2D DIMENSIONS RVDd3.7 (2.9-3.5cm)Left Atrium(2D)4.8 (1.6-4.0cm) IVSd1.5 (0.7-1.1cm)Aortic Root(2D)3.7 (2.0-3.7cm) LVDd5.2 (3.9-5.9cm)LVOT Diameter2.1 (1.8-2.4cm) PWd1.1 (0.7-1.1cm)LVDs4.5 (2.5-4.0cm) FS (%) 13.2 %SV35.8 ml LVEF(%)35.0 (>50%) Aortic Valve AoV Peak Andrade.208.8cm/sAoV VTI39.2cm AO Peak GR.17.4mmHgLVOT VTI 17.47cm AO Mean GR.10mmHgAVA (VTI)1.50cm2 AI P 1/2 [id number] Mitral Valve MV E Uvysvdxe714.8cm/sMV DECEL [id number] MV A Brzdlelf52.3cm/sE/A Ratio2.8 Tricuspid Valve TR P. Iddpdhoc487kx/sRAP [id number] TR Peak Gr.[id number] LEFT VENTRICLE The left ventricle is normal size. There is mild concentric left ventricular hypertrophy. The systoli c function is mildly impaired. EF 45-50%. Septal motion consistent with conduction abnormality. Other taylor, mild global hypokinesis. Tissue Doppler imaging reveals moderate left ventricular diastolic dys function. RIGHT VENTRICLE The right ventricle is normal size. The right ventricular systolic function is normal. ATRIA The left atrium is mildly dilated. The right atrium is mildly dilated. The interatrial septum is inta ct with no evidence for an atrial septal defect or patent foramen ovale as noted on 2-D or Doppler im aging. AORTIC VALVE The aortic valve is heavily calcified and displays decreased opening. Doppler and Color Flow revealed mild aortic regurgitation. Calculated aortic valve area is 1.5 cm2 with maximum pressure gradient of 17 mmHg and mean pressure gradient of 10 mmHg. Doppler and color-flow analysis revealed mild aortic stenosis. MITRAL VALVE The mitral valve is calcified but opens well. There is no evidence of mitral valve prolapse. There is no mitral valve stenosis. Doppler and Color-flow revealed moderate mitral regurgitation. TRICUSPID VALVE The tricuspid valve is normal in structure and function. Doppler and Color Flow revealed mild to mode rate tricuspid regurgitation. There is moderate pulmonary hypertension. The PA pressure was estimated at 49 mmHg. There is no tricuspid valve stenosis. PULMONIC VALVE The pulmonary valve is normal in structure and function. Doppler and Color Flow revealed mild pulmoni c valvular regurgitation. There is no pulmonic valvular stenosis. GREAT VESSELS The aortic root is normal in size. The ascending aorta is mildly dilated at 3.7 cm. The IVC is normal in size and collapses >50% with inspiration. PERICARDIAL EFFUSION There is no evidence of significant pericardial effusion. Critical Notification Critical Value: No <Conclusion> The systolic function is mildly impaired. EF 45-50%. Septal motion consistent with conduction abnormality. Otherwise, mild global hypokinesis. Doppler and Color Flow revealed mild aortic regurgitation. Calculated aortic valve area is 1.5 cm2 with maximum pressure gradient of 17 mmHg and mean pressure g radient of 10 mmHg. Doppler and color-flow analysis revealed mild aortic stenosis. Doppler and Color-flow revealed moderate mitral regurgitation. Doppler and Color Flow revealed mild to moderate tricuspid regurgitation. There is moderate pulmonary hypertension. The PA pressure was estimated at 49 mmHg. Signed by : Leif Mayes, Electronically Approved : 04/25/2019 13:19:41
--- NOTE | 2019-04-25 13:51 | NUR ---
pt dressings were changed today by the wound care team.
--- NOTE | 2019-04-25 13:57 | PDOC2 ---
YULI GANDHI [employer]LECT[employer] INSTRUMENT [employer]ER 04/25/19 1357: CARDIAC CONSULT DATE OF CONSULT Date of Consult DATE: 04/25/19 TIME: 13:53 REASON FOR CONSULT Reason for Consult: Cardiac clearance for BKA REFERRING PHYSICIAN Referring Physician: Dr. Street SOURCE Source: Chart review, Patient HISTORY OF PRESENT ILLNESS HISTORY OF PRESENT ILLNESS This is a 78 yo male, with a history of PAD, who presented from nursing facility secondary to infected right lateral foot wound. Has been followed by wound care. Right BKA planned, consult for cardiac clearance. Patient denies any chest pain, palpitations, dizziness, diaphoresis, SOA, or nausea/vomiting. PAST MEDICAL HISTORY Past Medical History Cardiovascular: AFIB, CAD, CHF, HTN, Hyperlipidemia, PAD Pulmonary: Other (MOUNIKA) CENTRAL NERVOUS SYSTEM: CVA GI: GERD, Other (colon polyps) Heme/Onc: psoas hematoma Hepatobiliary: No pertinent hx Psych: No pertinent hx Musculoskeletal: Osteoarthritis Rheumatologic: No pertinent hx Infectious disease: No pertinent hx ENT: No pertinent hx Renal/: Chronic renal insuff Endocrine: Diabetes (2) Dermatology: No pertinent hx PAST SURGICAL HISTORY Past Surgical History Other (left toe amputation; PCI/stent; MANAGER MAINTENANCE/stent, PPM, amputation of the right 3rd through the 5th toes, debridement of a right ankle wound, MANAGER MAINTENANCE/stenting of the right SFA, POBA right PT and Peroneal) FAMILY HISTORY Family History Coronary Artery Disease (father) SOCIAL HISTORY Social History Smoke: No ALCOHOL: none Drugs: None Lives: [facility] CURRENT MEDICATIONS CURRENT MEDICATIONS Current Medications Medications (Trade) Dose Ordered Sig/Bhavesh Route PRN Reason Start Time Stop Time Status Last Admin Dose Admin Piperacillin Sod/ Tazobactam Sod 2.25 gm/Sodium Chloride 50 ml @ 100 mls/hr Q8HRS IV 04/24/19 14:00 04/25/19 06:11 Atorvastatin Calcium (Lipitor) 40 mg QHS PO 04/24/19 21:00 04/24/19 20:50 Metoclopramide HCl (Reglan) 5 mg TIDBFRMEAL PO 04/24/19 16:30 04/25/19 11:51 ALLERGIES ALLERGIES: Coded Allergies: I S O L A T I O N *CONTACT* (Verified Allergy, Unknown, 04/25/19) vre No Known Medication Allergies (Verified Allergy, Unknown, 04/25/19) ROS Review of System 14 point ROS conducted with pertinent positives noted above in HPI. PHYSICAL EXAM PHYSICAL EXAM General: drowsy, No acute distress HEENT: Atraumatic, Mucous membr. moist/pink Lungs: Clear to auscultation, Normal air movement Heart: Normal S1, Normal S2, Other (100% v-paced with underlying AFIB) Abdomen: Soft, No tenderness Extremities: no edema. Right foot wound with dressing intact. Left heel dressing Skin: No breakdown, No significant lesion Neuro: Normal speech, Sensation intact Psych/Mental Status: Mental status NL, Mood NL, Other (forgetful) MUSCULOSKELETAL: Osteoarthritic changes both hands VITALS VITALS Vital Signs Date Time Temp Pulse Resp B/P (MAP) Pulse Ox O2 Delivery O2 Flow Rate FiO2 04/25/19 11:00 98.1 65 18 126/64 (84) 97 Room Air 98.1 LABS Lab: Laboratory Tests Test 04/24/19 14:45 04/24/19 16:05 04/24/19 20:37 04/25/19 07:37 Sodium Level 137 mmol/L (136-145) Potassium Level 4.1 mmol/L (3.5-5.1) Chloride Level 99 mmol/L (98-107) Carbon Dioxide Level 27 mmol/L (21-32) Anion Gap 11 (6-14) Blood Urea Nitrogen 74 mg/dL (8-26) Creatinine 5.5 mg/dL (0.7-1.3) Estimated GFR (Cockcroft-Gault) 12.2 BUN/Creatinine Ratio 13 (6-20) Glucose Level 180 mg/dL (70-99) Calcium Level 8.6 mg/dL (8.5-10.1) Phosphorus Level 4.0 mg/dL (2.6-4.7) Magnesium Level 2.1 mg/dL (1.8-2.4) Total Bilirubin 0.4 mg/dL (0.2-1.0) Aspartate Amino Transf (AST/SGOT) 22 U/L (15-37) Alanine Aminotransferase (ALT/SGPT) 16 U/L (16-63) Alkaline Phosphatase 140 U/L (46-116) C-Reactive Protein, Quantitative 74.0 mg/L (0-3.3) Total Protein 6.9 g/dL (6.4-8.2) Albumin 2.3 g/dL (3.4-5.0) Albumin/Globulin Ratio 0.5 (1.0-1.7) White Blood Count 10.0 x10^3/uL (4.0-11.0) Red Blood Count 3.09 x10^6/uL (4.30-5.70) Hemoglobin 8.5 g/dL (13.0-17.5) Hematocrit 26.6 % (39.0-53.0) Mean Corpuscular Volume 86 fL (79-100) Mean Corpuscular Hemoglobin 28 pg (25-35) Mean Corpuscular Hemoglobin Concent 32 g/dL (31-37) Red Cell Distribution Width 19.3 % (11.5-14.5) Platelet Count 327 x10^3/uL (140-400) Neutrophils (%) (Auto) 76 % (31-73) Lymphocytes (%) (Auto) 13 % (24-48) Monocytes (%) (Auto) 6 % (0-9) Eosinophils (%) (Auto) 4 % (0-3) Basophils (%) (Auto) 1 % (0-3) Neutrophils # (Auto) 7.6 x10^3uL (1.8-7.7) Lymphocytes # (Auto) 1.3 x10^3/uL (1.0-4.8) Monocytes # (Auto) 0.6 x10^3/uL (0.0-1.1) Eosinophils # (Auto) 0.4 x10^3/uL (0.0-0.7) Basophils # (Auto) 0.1 x10^3/uL (0.0-0.2) Erythrocyte Sedimentation Rate 100 (0-15) Glucose (Fingerstick) 76 mg/dL (70-99) 107 mg/dL (70-99) Test 04/25/19 11:17 Glucose (Fingerstick) 146 mg/dL (70-99) ECHOCARDIOGRAM ECHOCARDIOGRAM <Conclusion> The left ventricular systolic function is normal. The Ejection Fraction is 55-60%. There is normal LV segmental wall motion. There is a pacemaker lead in the right atrium and right ventricle. Mild aortic stenosis. Trace mitral regurgitation. Trace tricuspid regurgitation with an estimated PAP 56 mmHg. There is no evidence of significant pericardial effusion. DATE: 11/07/181801 ASSESSMENT/PLAN ASSESSMENT/PLAN 1. PAD with right foot wound. Vascular surgery following. Right BKA planned. 2. Chronic diastolic HF; appears clinically compensated 3. Permanent AFIB; previously on warfarin, was discontinued due to psoas hematoma. Rate controlled 4. Hypertension; controlled 5. CAD; s/p PCI/stent in the past. clinically stable. CP free. 6. H/o CVA with left side hemiparesis 7. Morbid obesity, MOUNIKA; CPAP at home 8. ESRD on HD 9. SSS s/p PPM ([employer]) 10. Diabetes, II; per PCP 11. Hyperlipidemia; static Recommendations Continue secondary prevention measures; ASA, Plavix, statin Fluid offloading/management via HD as per nephrology. ASA for stroke prevention as he is a poor candidate for long-term OAC Echo to assess LV systolic function Patient would be at least moderate risk for surgery given age and comorbidities. PAL CAMACHO MD 04/25/19 4527: CARDIAC CONSULT ASSESSMENT/PLAN ASSESSMENT/PLAN Patient seen and examined. Agree with SPORTS WRITER's assessment and plan. 2D echo showed EF 45-50% CAD status clinically stable Perm atrial fib rate controlled Continue fluid removal with HD per nephrology team Patient is moderate risk for periop CV mortality based on comorbidities Thank you for your consultation YULI GANDHI APRN April 25, 2019 13:57 PAL CAMACHO MD April 25, 2019 21:59
--- NOTE | 2019-04-25 14:11 | PDOC ---
Provider Note Provider Note Vascular surgery 78-year-old diabetic male with known severe peripheral vascular disease. She has had a right transmetatarsal amputation, subsequent skin graft. His 44 wound on the right has healed. Unfortunately the patient has developed a new ulcer on the lateral aspect of his right foot. His examination shows full-thickness tissue injury with some inferior nonviable tissue as well. The wound extends down to the proximal tarsal metatarsal joint. I do not feel that given the extent of this new neuropathic wound that the foot is salvageable. Agree with recommendations for primary right below-knee amputation. The planned operative procedure, its risks, complications, and alternative therapies, have all been explained to the patient. He understands and agrees to proceed YA HELLER MD April 25, 2019 14:11
--- NOTE | 2019-04-25 14:11 | NUR ---
Wound Care Wound care consult for multiple BLE DFU's. Pt has TMA site on right foot that has 2 small open areas remaining after skin graft, covered with Xeroform and ABD with Kerlix. Pt has right lateral foot DFU that is probable to bone, packed with Aquacel Ag and covered with ABD and Kerlix. Pt has left lateral heel DFU, covered with Aquacel Ag and foam dressing. Recommend to change all dressings in 2-3 days. no other wounds noted on full skin inspection. WC will continue to follow for possible changes. Pt transferred to P500 bed, heel medix boots ordered and pt attempted to use commode during visit.
--- NOTE | 2019-04-25 14:59 | NUR ---
Dr Arteaga removed pt dressing at 1410 to examine before deciding to operate. this RN placed a new dressing on at this time. will continue to monitor.
[2019-04-25 15:00] VITALS: BP 130/64
--- NOTE | 2019-04-25 15:00 | NUR ---
called daughter and sister at this time to inform them of the schedule for pt surgery per pt request. pt daughter requested to talk with Dr. Arteaga before surgery, this RN called his office to have him call her about surgical and post surgical plans per daughter request.
[2019-04-25 17:14] LABS: HEMOGLOBIN A1C 6.6 % (4.8-5.6)
[2019-04-25 19:00] VITALS: BP 132/63
[2019-04-25] MEDS ORDERED: DARBEPOETIN ALFA 60 MCG/0.3 ML DISP.SYRIN. SQ SCH (21:00)
[2019-04-25] MEDS: ATORVASTATIN CALCIUM 40 MG TABLET. PO SCH (21:50)
[2019-04-25 23:00] VITALS: BP 115/61
[2019-04-26] VITALS (13 sets, daily range): BP systolic 96–125; BP diastolic 30–58
[2019-04-26] MEDS: traMADol 50 MG TABLET PO PRN ×3 (01:50→21:34)
[2019-04-26] MEDS ORDERED: BACITRACIN 50,000 UNIT in IV NORMAL SALINE 500ML BAG 500 ML IRR ONE (06:00)
[2019-04-26] MEDS: PANTOPRAZOLE 40 MG TABLET.DR. PO SCH (06:06)
[2019-04-26] MEDS: PIPERACILLIN/TAZOBACTAM 2.25 GM in IV NORMAL SALINE 50ML 50 ML IV SCH ×2 (06:06→17:53)
[2019-04-26] MEDS: METOCLOPRAMIDE 5 MG TABLET. PO SCH ×3 (06:06→17:08)
[2019-04-26] MEDS ORDERED: HYDROmorphone 2 MG/ML VIAL IV PRN ×2 (07:00)
[2019-04-26] MEDS ORDERED: IV RINGERS,LACTATED 1000ML 1,000 ML IV SCH ×2 (07:00)
[2019-04-26] MEDS ORDERED: MORPHINE SULFATE 2 MG/ML VIAL. IV PRN ×2 (07:00)
[2019-04-26] MEDS ORDERED: ONDANSETRON PF 4 MG/2 ML VIAL. IV PRN ×2 (07:00)
[2019-04-26] MEDS ORDERED: IV NORMAL SALINE 1000ML BAG 1,000 ML IV PRN ×2 (07:17)
[2019-04-26] MEDS ORDERED: DIALYSIS PATIENT. MC PRN ×2 (07:30)
[2019-04-26] MEDS: SEVELAMER CARBONATE 800 MG TABLET. PO SCH ×3 (08:00→17:08)
[2019-04-26] MEDS: INSULIN LISPRO 300 UNITS/3 ML INSULN.PEN. SQ SCH ×3 (08:00→17:00)
[2019-04-26] MEDS: CLOPIDOGREL BISULFATE 75 MG TABLET PO SCH (08:00)
[2019-04-26] MEDS: ASPIRIN ENTERIC COATED 81 MG TABLET.DR. PO SCH (08:00)
[2019-04-26 08:16] LABS: HEMATOCRIT 27.4 % (39.0-53.0); HEMOGLOBIN 8.6 g/dL (13.0-17.5); RED BLOOD COUNT 3.18 x10^6/uL (4.30-5.70); RED CELL DISTRIBUTION WIDTH 18.8 % (11.5-14.5); WHITE BLOOD COUNT 8.2 x10^3/uL (4.0-11.0)
[2019-04-26 08:28] LABS: CALCIUM 8.3 mg/dL (8.5-10.1); CREATININE 4.2 mg/dL (0.7-1.3); GFR 16.7; POTASSIUM 3.9 mmol/L (3.5-5.1)
--- NOTE | 2019-04-26 08:45 | PDOC ---
Infectious Disease Note Subjective: Subjective pt seen in dialysis says doing ok no f/c/n/v/d ROS: ROS Negative except for above. Vital Signs: Vital Signs Vital Signs Date Time Temp Pulse Resp B/P (MAP) Pulse Ox O2 Delivery O2 Flow Rate FiO2 04/26/19 03:00 97.5 55 18 105/57 (73) 97 Room Air 97.5 Physical Exam: PHYSICAL EXAM GENERAL: Alert, oriented, awake male lying in bed comfortably, in no acute distress, pleasant, cooperative. HEENT: Normocephalic, atraumatic, anicteric. No thrush. Oral mucosa moist. NECK: Supple. No JVD. No thyromegaly. LUNGS: Clear bilaterally. No wheezing. HEART: S1, S2. No gallops, or murmurs, or rubs. ABDOMEN: Soft, obese. Bowel sounds present, nontender, nondistended. EXTREMITIES: Right upper extremity has AV shunt, site looks okay. Lower extremity has chronic venous stasis with lymphedema. Right foot has transmetatarsal amputation with skin graft, right lateral wound necrotic, no purulence tracking into the plantar surface, there is a small wound in the left heel. No drainage. Clean base. NEUROLOGIC: Alert, oriented, awake, moves all 4 extremities. PSYCHIATRIC: Appropriate mood and affect. DERMATOLOGIC: Warm, dry. No generalized rash. Medications: Inpatient Meds: Current Medications Medications (Trade) Dose Ordered Sig/Bhavesh Start Time Stop Time Status Last Admin Dose Admin Acetaminophen (Tylenol) 325 mg QID 04/24/19 13:30 04/25/19 21:50 325 MG Allopurinol (Zyloprim) 100 mg DAILY 04/25/19 09:00 UNV Aspirin (Onesimo Aspirin) 81 mg DAILYWBKFT 04/25/19 08:00 UNV Aspirin (Ecotrin) 81 mg DAILYWBKFT 04/24/19 13:30 04/25/19 08:48 81 MG Atorvastatin Calcium (Lipitor) 40 mg QHS 04/24/19 21:00 UNV Bacitracin 98948 unit/Sodium Chloride 500 ml @ 500 mls/hr 1X ONCE 04/26/19 06:00 04/26/19 06:59 Cancel Clopidogrel Bisulfate (Plavix) 75 mg DAILYWBKFT 04/25/19 08:00 UNV Cyanocobalamin (Vitamin B-12) 1,000 mcg DAILY 04/25/19 09:00 UNV Darbepoetin Reinaldo (Aranesp) 60 mcg WEEKLYHS 04/25/19 21:00 04/25/19 22:34 60 MCG Dextrose (Dextrose 50%-Water Syringe) 12.5 gm PRN Q15MIN PRN 04/24/19 12:15 Diphenhydramine HCl (Benadryl) 25 mg PRN Q6HRS PRN 04/24/19 12:15 Hydromorphone HCl (Dilaudid) 0.5 mg PRN Q10MIN PRN 04/26/19 07:00 04/27/19 06:59 UNV Info (PHARMACY MONITORING -- do not chart) 1 each PRN DAILY PRN 04/26/19 07:30 Insulin Human Lispro (HumaLOG) 0-6 UNITS BG 300-39... TIDWMEALS 04/24/19 17:00 UNV Lactobacillus Rhamnosus (Culturelle) 1 cap BID 04/24/19 21:00 UNV Linezolid/Dextrose 300 ml @ 300 mls/hr Q12HR 04/24/19 13:30 04/25/19 21:49 300 MLS/HR Magnesium Hydroxide (Milk Of Magnesia) 2,400 mg PRN DAILY PRN 04/24/19 12:15 UNV Metoclopramide HCl (Reglan) 5 mg TIDBFRMEAL 04/24/19 16:30 04/26/19 06:06 5 MG Morphine Sulfate (Morphine Sulfate) 1 mg PRN Q10MIN PRN 04/26/19 07:00 04/27/19 06:59 UNV Ondansetron HCl (Zofran Odt) 4 mg PRN Q6HRS PRN 04/24/19 12:15 UNV Ondansetron HCl (Zofran) 4 mg PRN Q6HRS PRN 04/26/19 07:00 04/27/19 06:59 UNV Pantoprazole Sodium (Protonix) 20 mg DAILYAC 04/25/19 07:30 UNV Piperacillin Sod/ Tazobactam Sod 2.25 gm/Sodium Chloride 50 ml @ 100 mls/hr Q8HRS 04/24/19 14:00 UNV Ringer's Solution 1,000 ml @ 30 mls/hr Q24H 04/26/19 07:00 04/26/19 18:59 UNV Sevelamer Carbonate (Renvela) 800 mg TIDWMEALS 04/24/19 17:00 UNV Sodium Chloride 1,000 ml @ 400 mls/hr Q2H30M PRN 04/26/19 07:17 04/26/19 19:16 Tramadol HCl (Ultram) 25 mg PRN Q6HRS PRN 04/24/19 12:15 UNV Vitamin B Complex/ Vitamin C (Krista-Beatriz) 1 tab DAILY 04/24/19 13:30 04/25/19 08:48 1 TAB Vitamin D (Vitamin D3) 1,000 unit DAILY 04/25/19 09:00 UNV Labs: Lab Laboratory Tests Test 04/25/19 11:17 04/25/19 17:04 04/25/19 21:00 04/26/19 08:00 Glucose (Fingerstick) 146 mg/dL (70-99) 147 mg/dL (70-99) 147 mg/dL (70-99) White Blood Count 8.2 x10^3/uL (4.0-11.0) Red Blood Count 3.18 x10^6/uL (4.30-5.70) Hemoglobin 8.6 g/dL (13.0-17.5) Hematocrit 27.4 % (39.0-53.0) Mean Corpuscular Volume 86 fL (79-100) Mean Corpuscular Hemoglobin 27 pg (25-35) Mean Corpuscular Hemoglobin Concent 31 g/dL (31-37) Red Cell Distribution Width 18.8 % (11.5-14.5) Platelet Count 329 x10^3/uL (140-400) Sodium Level 140 mmol/L (136-145) Potassium Level 3.9 mmol/L (3.5-5.1) Chloride Level 101 mmol/L (98-107) Carbon Dioxide Level 31 mmol/L (21-32) Anion Gap 8 (6-14) Blood Urea Nitrogen 37 mg/dL (8-26) Creatinine 4.2 mg/dL (0.7-1.3) Estimated GFR (Cockcroft-Gault) 16.7 Glucose Level 109 mg/dL (70-99) Calcium Level 8.3 mg/dL (8.5-10.1) Micro rt lateral foot wound c/s sent Objective: Assessment: RT Lateral necrotic foot wound S/P RT TMA with graft Lt heel superfical wound not infected DM with neuropathy ESRD on HD Anemia of chroniic disease Chronic lymphedema Chronic venous stasis PAD Plan: Plan of Care Cont zosyn renal dosing Zyvox awaiting RT BKA per vascular surgery D/W LARISA FARRELL MD April 26, 2019 08:45
[2019-04-26] MEDS: ALLOPURINOL 100 MG TABLET. PO SCH (09:00)
[2019-04-26] MEDS: ACETAMINOPHEN 325 MG TABLET. PO SCH ×4 (09:00→21:00)
[2019-04-26] MEDS: CHOLECALCIFEROL (VITAMIN D3) 1,000 UNIT TABLET PO SCH (09:00)
[2019-04-26] MEDS: CYANOCOBALAMIN (VITAMIN B-12) 1,000 MCG TABLET. PO SCH (09:00)
[2019-04-26] MEDS: FOLIC/VIT B COMP W-C (RENAL) TABLET. PO SCH (09:00)
[2019-04-26] MEDS: LACTOBACILLUS RHAMNOSUS GG 1 CAPSULE. PO SCH ×2 (09:00→21:33)
--- NOTE | 2019-04-26 10:13 | PDOC ---
PROGRESS NOTES Subjective Subjective discussed with patient and vascular surgery and dialysis team. seen during dialysis. feels okay. comfortable. lab reviewed. Objective Objective Vital Signs Date Time Temp Pulse Resp B/P (MAP) Pulse Ox O2 Delivery O2 Flow Rate FiO2 04/26/19 03:00 97.5 55 18 105/57 (73) 97 Room Air 97.5 Intake and Output 04/26/19 07:00 Intake Total 1280 ml Output Total 0 ml Balance 1280 ml Intake Oral 930 ml IV Total 350 ml Output Urine Total 0 ml # Voids 1 Physical Exam Abdomen: Soft, Other (obese) Heart: Normal S1, Normal S2 Extremities: No edema, Other (dry dressing right TMA) General: Alert HEENT: Atraumatic Lungs: Clear to auscultation Neuro: Normal speech Psych/Mental Status: Mental status NL Skin: No rashes Assessment Assessment 1. Infected right lateral foot wound. 2. History of right transmetatarsal amputation with skin graft. 3. End-stage renal disease on hemodialysis. 4. Obstructive sleep apnea. 5. Diabetes mellitus type 2 with peripheral neuropathy. 6. Peripheral arterial disease. 7. Anemia of chronic disease. 8. Hyperlipidemia. 9. Morbid obesity. left heel wound Plan Plan of Care transfuse 2 units prbc during dialysis today right BKA tomorrow continue zyvox and zosyn Comment Review of Relevant I have reviewed the following items simeon (where applicable) has been applied. Labs Laboratory Tests Test 04/24/19 12:00 04/24/19 14:45 04/24/19 16:05 04/24/19 20:37 Nasal Screen MRSA (PCR) Negative (Negative) Sodium Level 137 mmol/L (136-145) Potassium Level 4.1 mmol/L (3.5-5.1) Chloride Level 99 mmol/L (98-107) Carbon Dioxide Level 27 mmol/L (21-32) Anion Gap 11 (6-14) Blood Urea Nitrogen 74 mg/dL (8-26) Creatinine 5.5 mg/dL (0.7-1.3) Estimated GFR (Cockcroft-Gault) 12.2 BUN/Creatinine Ratio 13 (6-20) Glucose Level 180 mg/dL (70-99) Calcium Level 8.6 mg/dL (8.5-10.1) Phosphorus Level 4.0 mg/dL (2.6-4.7) Magnesium Level 2.1 mg/dL (1.8-2.4) Total Bilirubin 0.4 mg/dL (0.2-1.0) Aspartate Amino Transf (AST/SGOT) 22 U/L (15-37) Alanine Aminotransferase (ALT/SGPT) 16 U/L (16-63) Alkaline Phosphatase 140 U/L (46-116) C-Reactive Protein, Quantitative 74.0 mg/L (0-3.3) Total Protein 6.9 g/dL (6.4-8.2) Albumin 2.3 g/dL (3.4-5.0) Albumin/Globulin Ratio 0.5 (1.0-1.7) White Blood Count 10.0 x10^3/uL (4.0-11.0) Red Blood Count 3.09 x10^6/uL (4.30-5.70) Hemoglobin 8.5 g/dL (13.0-17.5) Hematocrit 26.6 % (39.0-53.0) Mean Corpuscular Volume 86 fL (79-100) Mean Corpuscular Hemoglobin 28 pg (25-35) Mean Corpuscular Hemoglobin Concent 32 g/dL (31-37) Red Cell Distribution Width 19.3 % (11.5-14.5) Platelet Count 327 x10^3/uL (140-400) Neutrophils (%) (Auto) 76 % (31-73) Lymphocytes (%) (Auto) 13 % (24-48) Monocytes (%) (Auto) 6 % (0-9) Eosinophils (%) (Auto) 4 % (0-3) Basophils (%) (Auto) 1 % (0-3) Neutrophils # (Auto) 7.6 x10^3uL (1.8-7.7) Lymphocytes # (Auto) 1.3 x10^3/uL (1.0-4.8) Monocytes # (Auto) 0.6 x10^3/uL (0.0-1.1) Eosinophils # (Auto) 0.4 x10^3/uL (0.0-0.7) Basophils # (Auto) 0.1 x10^3/uL (0.0-0.2) Erythrocyte Sedimentation Rate 100 (0-15) Hemoglobin A1c 6.6 % (4.8-5.6) Glucose (Fingerstick) 76 mg/dL (70-99) Test 04/25/19 07:37 04/25/19 11:17 04/25/19 17:04 04/25/19 21:00 Glucose (Fingerstick) 107 mg/dL (70-99) 146 mg/dL (70-99) 147 mg/dL (70-99) 147 mg/dL (70-99) Test 04/26/19 08:00 White Blood Count 8.2 x10^3/uL (4.0-11.0) Red Blood Count 3.18 x10^6/uL (4.30-5.70) Hemoglobin 8.6 g/dL (13.0-17.5) Hematocrit 27.4 % (39.0-53.0) Mean Corpuscular Volume 86 fL (79-100) Mean Corpuscular Hemoglobin 27 pg (25-35) Mean Corpuscular Hemoglobin Concent 31 g/dL (31-37) Red Cell Distribution Width 18.8 % (11.5-14.5) Platelet Count 329 x10^3/uL (140-400) Sodium Level 140 mmol/L (136-145) Potassium Level 3.9 mmol/L (3.5-5.1) Chloride Level 101 mmol/L (98-107) Carbon Dioxide Level 31 mmol/L (21-32) Anion Gap 8 (6-14) Blood Urea Nitrogen 37 mg/dL (8-26) Creatinine 4.2 mg/dL (0.7-1.3) Estimated GFR (Cockcroft-Gault) 16.7 Glucose Level 109 mg/dL (70-99) Calcium Level 8.3 mg/dL (8.5-10.1) Laboratory Tests Test 04/25/19 11:17 04/25/19 17:04 04/25/19 21:00 04/26/19 08:00 Glucose (Fingerstick) 146 mg/dL (70-99) 147 mg/dL (70-99) 147 mg/dL (70-99) White Blood Count 8.2 x10^3/uL (4.0-11.0) Red Blood Count 3.18 x10^6/uL (4.30-5.70) Hemoglobin 8.6 g/dL (13.0-17.5) Hematocrit 27.4 % (39.0-53.0) Mean Corpuscular Volume 86 fL (79-100) Mean Corpuscular Hemoglobin 27 pg (25-35) Mean Corpuscular Hemoglobin Concent 31 g/dL (31-37) Red Cell Distribution Width 18.8 % (11.5-14.5) Platelet Count 329 x10^3/uL (140-400) Sodium Level 140 mmol/L (136-145) Potassium Level 3.9 mmol/L (3.5-5.1) Chloride Level 101 mmol/L (98-107) Carbon Dioxide Level 31 mmol/L (21-32) Anion Gap 8 (6-14) Blood Urea Nitrogen 37 mg/dL (8-26) Creatinine 4.2 mg/dL (0.7-1.3) Estimated GFR (Cockcroft-Gault) 16.7 Glucose Level 109 mg/dL (70-99) Calcium Level 8.3 mg/dL (8.5-10.1) Medications Current Medications Linezolid/Dextrose 300 ml @ 300 mls/hr Q12HR IV Last administered on 04/25/19at 21:49; Start 04/24/19 at 13:30 Piperacillin Sod/ Tazobactam Sod 2.25 gm/Sodium Chloride 50 ml @ 100 mls/hr Q8HRS IV Last administered on 04/26/19at 06:06; Start 04/24/19 at 14:00 Magnesium Hydroxide (Milk Of Magnesia) 2,400 mg PRN DAILY PRN PO CONSTIPATION; Start 04/24/19 at 12:15 Ondansetron HCl (Zofran Odt) 4 mg PRN Q6HRS PRN PO NAUSEA/VOMITING, 1st CHOICE; Start 04/24/19 at 12:15 Tramadol HCl (Ultram) 25 mg PRN Q6HRS PRN PO MODERATE-SEVERE PAIN Last administered on 04/26/19at 01:50; Start 04/24/19 at 12:15 Aspirin (Ecotrin) 81 mg DAILYWBKFT PO Last administered on 04/25/19at 08:48; St art 04/24/19 at 13:30 Sevelamer Carbonate (Renvela) 800 mg TIDWMEALS PO Last administered on 04/25/19at 17:53; Start 04/24/19 at 13:30 Cyanocobalamin (Vitamin B-12) 1,000 mcg DAILY PO Last administered on 04/25/19 08:48; Start 04/24/19 at 13:30 Allopurinol (Zyloprim) 100 mg DAILY PO Last administered on 04/25/19 08:48; Start 04/24/19 at 13:30 Atorvastatin Calcium (Lipitor) 40 mg QHS PO Last administered on 04/25/19at 21:50; Start 04/24/19 at 21:00 Acetaminophen (Tylenol) 325 mg PRN QID PRN PO MILD PAIN / TEMP; Start 04/24/19 at 12:15 Clopidogrel Bisulfate (Plavix) 75 mg DAILYWBKFT PO Last administered on 04/25/19at 08:48; Start 04/24/19 at 13:30 Metoclopramide HCl (Reglan) 5 mg PRN BFRMEALHC PRN PO NAUSEA/VOMITING, 2nd CHOICE; Start 04/24/19 at 12:15 Vitamin D (Vitamin D3) 1,000 unit DAILY PO Last administered on 04/25/19at 08:48; Start 04/24/19 at 13:30 Pantoprazole Sodium (Protonix) 40 mg DAILYAC PO Last administered on 04/26/19 06:06; Start 04/24/19 at 13:30 Insulin Human Lispro (HumaLOG) 0-5 UNITS TIDWMEALS SQ ; Start 04/24/19 at 17:00 Dextrose (Dextrose 50%-Water Syringe) 12.5 gm PRN Q15MIN PRN IV SEE COMMENTS; Start 04/24/19 at 12:15 Lactobacillus Rhamnosus (Culturelle) 1 cap BID PO Last administered on 04/25/19at 21:50; Start 04/24/19 at 13:30 Vitamin B Complex/ Vitamin C (Krista-Beatriz) 1 tab DAILY PO Last administered on 04/25/19at 08:48; Start 04/24/19 at 13:30 Piperacillin Sod/ Tazobactam Sod 2.25 gm/Sodium Chloride 50 ml @ 100 mls/hr Q8HRS IV ; Start 04/24/19 at 14:00; Status UNV Clopidogrel Bisulfate (Plavix) 75 mg DAILYWBKFT PO ; Start 04/25/19 at 08:00; Status UNV Metoclopramide HCl (Reglan) 5 mg TIDBFRMEAL PO Last administered on 04/26/19at 06:06; Start 04/24/19 at 16:30 Vitamin D (Vitamin D3) 1,000 unit DAILY PO ; Start 04/25/19 at 09:00; Status UNV Pantoprazole Sodium (Protonix) 20 mg DAILYAC PO ; Start 04/25/19 at 07:30; Status UNV Aspirin (Onesimo Aspirin) 81 mg DAILYWBKFT PO ; Start 04/25/19 at 08:00; Status UNV Sevelamer Carbonate (Renvela) 800 mg TIDWMEALS PO ; Start 04/24/19 at 17:00; Status UNV Cyanocobalamin (Vitamin B-12) 1,000 mcg DAILY PO ; Start 04/25/19 at 09:00; Status UNV Lactobacillus Rhamnosus (Culturelle) 1 cap BID PO ; Start 04/24/19 at 21:00; Status UNV Allopurinol (Zyloprim) 100 mg DAILY PO ; Start 04/25/19 at 09:00; Status UNV Atorvastatin Calcium (Lipitor) 40 mg QHS PO ; Start 04/24/19 at 21:00; Status UNV Acetaminophen (Tylenol) 325 mg PRN Q6HRS PRN PO MILD PAIN / TEMP; Start 04/24/19 at 12:15; Status UNV Acetaminophen (Tylenol) 325 mg QID PO Last administered on 04/25/19at 21:50; Start 04/24/19 at 13:30 Ondansetron HCl (Zofran Odt) 4 mg PRN Q6HRS PRN PO NAUSEA/VOMITING; Start 04/24/19 at 12:15; Status UNV Tramadol HCl (Ultram) 25 mg PRN Q6HRS PRN PO PAIN; Start 04/24/19 at 12:15; Status UNV Diphenhydramine HCl (Benadryl) 25 mg PRN Q6HRS PRN PO ITCHING; Start 04/24/19 at 12:15 Magnesium Hydroxide (Milk Of Magnesia) 2,400 mg PRN DAILY PRN PO CONSTIPATION; Start 04/24/19 at 12:15; Status UNV Insulin Human Lispro (HumaLOG) 0-6 UNITS BG 300-39... TIDWMEALS SQ ; Start 04/24/19 at 17:00; Status UNV Sodium Chloride 1,000 ml @ 1,000 mls/hr Q1H PRN IV hypotension; Start 04/24/19 at 17:00; Stop 04/24/19 at 23:00; Status DC Sodium Chloride 1,000 ml @ 400 mls/hr Q2H30M PRN IV PATENCY; Start 04/24/19 at 17:00; Stop 04/24/19 at 23:00; Status DC Info (PHARMACY MONITORING -- do not chart) 1 each PRN DAILY PRN MC SEE COMMENTS; Start 04/24/19 at 17:15; Status UNV Info (PHARMACY MONITORING -- do not chart) 1 each PRN DAILY PRN MC SEE COMMENTS; Start 04/24/19 at 17:15 Darbepoetin Reinaldo (Aranesp) 60 mcg WEEKLYHS SQ Last administered on 04/25/19at 22:34; Start 04/25/19 at 21:00 Bacitracin 06305 unit/Sodium Chloride 500 ml @ 500 mls/hr 1X ONCE IRR ; Start 04/26/19 at 06:00; Stop 04/26/19 at 06:59; Status Cancel Ondansetron HCl (Zofran) 4 mg PRN Q6HRS PRN IV NAUSEA/VOMITING; Start 04/26/19 at 07:00; Stop 04/27/19 at 06:59 Morphine Sulfate (Morphine Sulfate) 1 mg PRN Q10MIN PRN IV SEVERE PAIN 7-10; Start 04/26/19 at 07:00; Stop 04/27/19 at 06:59 Ringer's Solution 1,000 ml @ 30 mls/hr Q24H IV ; Start 04/26/19 at 07:00; Stop 04/26/19 at 18:59 Hydromorphone HCl (Dilaudid) 0.5 mg PRN Q10MIN PRN IV SEV PAIN, Second choice; Start 04/26/19 at 07:00; Stop 04/27/19 at 06:59 Ondansetron HCl (Zofran) 4 mg PRN Q6HRS PRN IV NAUSEA/VOMITING; Start 04/26/19 at 07:00; Stop 04/27/19 at 06:59; Status UNV Morphine Sulfate (Morphine Sulfate) 1 mg PRN Q10MIN PRN IV SEVERE PAIN 7-10; Start 04/26/19 at 07:00; Stop 04/27/19 at 06:59; Status UNV Ringer's Solution 1,000 ml @ 30 mls/hr Q24H IV ; Start 04/26/19 at 07:00; Stop 04/26/19 at 18:59; Status UNV Hydromorphone HCl (Dilaudid) 0.5 mg PRN Q10MIN PRN IV SEV PAIN, Second choice; Start 04/26/19 at 07:00; Stop 04/27/19 at 06:59; Status UNV Sodium Chloride 1,000 ml @ 1,000 mls/hr Q1H PRN IV hypotension; Start 04/26/19 at 07:17; Stop 04/26/19 at 13:16 Sodium Chloride 1,000 ml @ 400 mls/hr Q2H30M PRN IV PATENCY; Start 04/26/19 at 07:17; Stop 04/26/19 at 19:16 Info (PHARMACY MONITORING -- do not chart) 1 each PRN DAILY PRN MC SEE COMMENTS; Start 04/26/19 at 07:30; Status UNV Info (PHARMACY MONITORING -- do not chart) 1 each PRN DAILY PRN MC SEE COMMENTS; Start 04/26/19 at 07:30 Active Scripts Active Cephalexin 250 Mg Capsule 500 Mg PO BID 14 Days Ondansetron Odt (Ondansetron) 4 Mg Tab.rapdis 4 Mg PO Q6HRS PRN Metoclopramide Hcl 5 Mg Tablet 5 Mg PO TIDACHC Humalog (Insulin Lispro) 100 Unit/1 Ml Insuln.pen 0 Units SQ TIDWMEALS 30 Days BG 150-199= 1 units 200-299= 2 units 300-399= 4 units 400-499= 6 units ac tid sliding scale Reported Zofran (Ondansetron Hcl) 4 Mg Tablet 1 Tab PO Q6HRS Vitamin D3 (Cholecalciferol (Vitamin D3)) 1,000 Unit Tablet 1 Tab PO DAILY Vitamin B-12 (Cyanocobalamin (Vitamin B-12)) 1,000 Mcg Tablet 1 Tab PO DAILY Tylenol (Acetaminophen) 325 Mg Tablet 325 Mg PO QID Tylenol (Acetaminophen) 325 Mg Tablet 1 Tab PO PRN Q4HRS Tramadol Hcl 50 Mg Tablet 25 Mg PO Q6HRS PRN Senna (Sennosides) 8.6 Mg Tablet 8.6 Mg PO PRN DAILY PRN 2 tabs Renvela (Sevelamer Carbonate) 800 Mg Tablet 800 Mg PO TIDWMEALS Renal Caps Softgel (Folic Acid/Vitamin B Comp W-C) 1 Mg Capsule 1 Mg PO DAILY Reglan (Metoclopramide Hcl) 10 Mg Tablet 5 Mg PO TID Protonix (Pantoprazole Sodium) 20 Mg Tablet.dr 1 Tab PO DAILY Probiotic (Lactobacillus Acidophilus) 1 Each Capsule 1 Each PO BID Milk Of Magnesia (Magnesium Hydroxide) 400 Mg/5 Ml Oral.susp 400 Mg PO PRN DAILY PRN Lipitor (Atorvastatin Calcium) 40 Mg Tablet 1 Tab PO QHS Skin Treatment (Ammonium Lactate) 225 Gm Lotion 225 Gm TP BID Humalog (Insulin Lispro) 100 Unit/1 Ml Insuln.pen 100 Unit SQ TIDBFRMEAL 150-199=1 unit 200-299=2 units 300-399=4 units 100-499=6 units Duoneb 0.5-3(2.5) Mg/3 Ml (Albuterol/Ipratropium) 3 Ml Ampul.neb 3 Ml NEB PRN Q4HRS PRN Clopidogrel (Clopidogrel Bisulfate) 75 Mg Tablet 1 Tab PO DAILY Clindamycin Hcl 150 Mg Capsule 150 Mg PO TID Dulcolax (Bisacodyl) 10 Mg Supp.rect 10 Mg RC PRN DAILY PRN Benadryl Allergy (Diphenhydramine Hcl) 12.5 Mg/5 Ml Liquid 10 Ml PO PRN Q6-8HRS Aspir-Low (Aspirin) 81 Mg Tablet.dr 1 Tab PO DAILY Allopurinol 100 Mg Tablet 1 Tab PO DAILY Tramadol Hcl 50 Mg Tablet 0.5 Mg PO PRN Q6HRS PRN Senna (Sennosides) 8.6 Mg Tablet 2 Tab PO PRN DAILY PRN Bisacodyl 10 Mg Supp.rect 10 Mg RC PRN DAILY PRN Protonix (Pantoprazole Sodium) 20 Mg Tablet.dr 1 Tab PO DAILY Duoneb 0.5-3(2.5) Mg/3 Ml (Albuterol/Ipratropium) 3 Ml Ampul.neb 3 Ml NEB PRN Q4HRS PRN Milk Of Magnesia (Magnesium Hydroxide) 400 Mg/5 Ml Oral.susp 400 Mg PO PRN DAILY PRN Lac-Hydrin Five (Ammonium Lactate) 226 Gm Lotion 226 Gm TP BID Benadryl Allergy (Diphenhydramine Hcl) 12.5 Mg/5 Ml Liquid 25 Mg PO PRN Q6HRS PRN Vitamin B-12 (Cyanocobalamin (Vitamin B-12)) 1,000 Mcg Tablet 1 Tab PO DAILY Allopurinol 100 Mg Tablet 1 Tab PO DAILY Renal Caps Softgel (Folic Acid/Vitamin B Comp W-C) 1 Mg Capsule 1 Cap PO DAILY Acidophilus Lactobacilli (Lactobacillus Acidophilus) 1 Each Capsule 1 Each PO BID Renvela (Sevelamer Carbonate) 800 Mg Tablet 800 Mg PO TIDWMEALS Tylenol (Acetaminophen) 325 Mg Tablet 1 Tab PO PRN Q4HRS Aspirin 81 Mg Tab.chew 81 Mg PO DAILY Lipitor (Atorvastatin Calcium) 40 Mg Tablet 40 Mg PO HS Clopidogrel (Clopidogrel Bisulfate) 75 Mg Tablet 75 Mg PO DAILY Vitamin D-3 (Cholecalciferol (Vitamin D3)) 2,000 Unit Capsule 1,000 Unit PO DAILY Vitals/I & O Vital Sign - Last 24 Hours 04/25/19 04/25/19 04/25/19 04/25/19 11:00 15:00 17:53 19:00 Temp 98.1 98.2 97.7 98.1 98.2 97.7 Pulse 65 59 63 Resp 18 16 18 B/P (MAP) 126/64 (84) 130/64 (86) 132/63 (86) Pulse Ox 97 96 96 O2 Delivery Room Air Room Air Room Air Room Air 04/25/19 04/25/19 04/26/19 04/26/19 20:00 23:00 01:50 02:50 Temp 98.1 98.1 Pulse 65 Resp 18 18 16 B/P (MAP) 115/61 (79) Pulse Ox 95 O2 Delivery Room Air Room Air Room Air Room Air 04/26/19 03:00 Temp 97.5 97.5 Pulse 55 Resp 18 B/P (MAP) 105/57 (73) Pulse Ox 97 O2 Delivery Room Air Intake and Output 04/25/19 04/25/19 04/26/19 15:00 23:00 07:00 Intake Total 770 ml 300 ml 210 ml Output Total 0 ml Balance 770 ml 300 ml 210 ml KIMI TIDWELL MD April 26, 2019 10:12
--- NOTE | 2019-04-26 10:48 | PDOC ---
Renal-Progress Notes Subjective Notes Notes NONE History of Present Illness Hx of present illness STABLE Vitals Vitals Vital Signs Date Time Temp Pulse Resp B/P (MAP) Pulse Ox O2 Delivery O2 Flow Rate FiO2 04/26/19 03:00 97.5 55 18 105/57 (73) 97 Room Air 97.5 Weight Weight [ ] I.O. Intake and Output Intake and Output 04/26/19 07:00 Intake Total 1280 ml Output Total 0 ml Balance 1280 ml Intake Oral 930 ml IV Total 350 ml Output Urine Total 0 ml # Voids 1 Labs Labs Laboratory Tests Test 04/25/19 11:17 04/25/19 17:04 04/25/19 21:00 04/26/19 08:00 Glucose (Fingerstick) 146 mg/dL (70-99) 147 mg/dL (70-99) 147 mg/dL (70-99) White Blood Count 8.2 x10^3/uL (4.0-11.0) Red Blood Count 3.18 x10^6/uL (4.30-5.70) Hemoglobin 8.6 g/dL (13.0-17.5) Hematocrit 27.4 % (39.0-53.0) Mean Corpuscular Volume 86 fL (79-100) Mean Corpuscular Hemoglobin 27 pg (25-35) Mean Corpuscular Hemoglobin Concent 31 g/dL (31-37) Red Cell Distribution Width 18.8 % (11.5-14.5) Platelet Count 329 x10^3/uL (140-400) Sodium Level 140 mmol/L (136-145) Potassium Level 3.9 mmol/L (3.5-5.1) Chloride Level 101 mmol/L (98-107) Carbon Dioxide Level 31 mmol/L (21-32) Anion Gap 8 (6-14) Blood Urea Nitrogen 37 mg/dL (8-26) Creatinine 4.2 mg/dL (0.7-1.3) Estimated GFR (Cockcroft-Gault) 16.7 Glucose Level 109 mg/dL (70-99) Calcium Level 8.3 mg/dL (8.5-10.1) Review of Systems Constitutional: yes: weakness Ears/Nose/Throat: Yes: no symptom reported Eyes: Yes: no symptom reported Pulmonary: Yes no symptom reported Cardiovascular: Yes no symptom reported Gastrointestional: Yes: no symptom reported Genitourinary: Yes: no symptom reported Musculoskeletal: Yes: muscle stiffness Skin: Yes no symptom reported Psychiatric/Neurological: Yes: no symptom reported Endocrine: Yes: no symptom reported Physical Exam General Appearance: no apparent distress Respiratory: bilateral CTA Heart: S1S2 Abdomen: soft, bowel sounds present Genitourinary: bladder flat Extremities: pulses present Neurology: alert Assessment Assessment IMP ESRD ANEMIA DM II HTN FOOT WOUND PLAN ANTIBIOTICS HD TODAY UF TO CHAITANYA GONZALEZ MD April 26, 2019 10:48
--- NOTE | 2019-04-26 11:09 | PDOC ---
PROGRESS NOTES Subjective Subjective "Thank you for the information about tomorrow." Objective Objective Vascular Surgery Follow Up: Patient seen while on hemodialysis. Informed that surgery time has been moved up to [address] Arteaga for right BKA. Patient's sister has been notified of this change. No new questions from patient. Patient is to receive 2 units PRBC's at the end of dialysis today. Vital Signs Date Time Temp Pulse Resp B/P (MAP) Pulse Ox O2 Delivery O2 Flow Rate FiO2 04/26/19 03:00 97.5 55 18 105/57 (73) 97 Room Air 97.5 Intake and Output 04/26/19 06:59 Intake Total 1280 ml Output Total 0 ml Balance 1280 ml Intake Oral 930 ml IV Total 350 ml Output Urine Total 0 ml # Voids 1 Comment Review of Relevant I have reviewed the following items simeon (where applicable) has been applied. Labs Laboratory Tests Test 04/24/19 12:00 04/24/19 14:45 04/24/19 16:05 04/24/19 20:37 Nasal Screen MRSA (PCR) Negative (Negative) Sodium Level 137 mmol/L (136-145) Potassium Level 4.1 mmol/L (3.5-5.1) Chloride Level 99 mmol/L (98-107) Carbon Dioxide Level 27 mmol/L (21-32) Anion Gap 11 (6-14) Blood Urea Nitrogen 74 mg/dL (8-26) Creatinine 5.5 mg/dL (0.7-1.3) Estimated GFR (Cockcroft-Gault) 12.2 BUN/Creatinine Ratio 13 (6-20) Glucose Level 180 mg/dL (70-99) Calcium Level 8.6 mg/dL (8.5-10.1) Phosphorus Level 4.0 mg/dL (2.6-4.7) Magnesium Level 2.1 mg/dL (1.8-2.4) Total Bilirubin 0.4 mg/dL (0.2-1.0) Aspartate Amino Transf (AST/SGOT) 22 U/L (15-37) Alanine Aminotransferase (ALT/SGPT) 16 U/L (16-63) Alkaline Phosphatase 140 U/L (46-116) C-Reactive Protein, Quantitative 74.0 mg/L (0-3.3) Total Protein 6.9 g/dL (6.4-8.2) Albumin 2.3 g/dL (3.4-5.0) Albumin/Globulin Ratio 0.5 (1.0-1.7) White Blood Count 10.0 x10^3/uL (4.0-11.0) Red Blood Count 3.09 x10^6/uL (4.30-5.70) Hemoglobin 8.5 g/dL (13.0-17.5) Hematocrit 26.6 % (39.0-53.0) Mean Corpuscular Volume 86 fL (79-100) Mean Corpuscular Hemoglobin 28 pg (25-35) Mean Corpuscular Hemoglobin Concent 32 g/dL (31-37) Red Cell Distribution Width 19.3 % (11.5-14.5) Platelet Count 327 x10^3/uL (140-400) Neutrophils (%) (Auto) 76 % (31-73) Lymphocytes (%) (Auto) 13 % (24-48) Monocytes (%) (Auto) 6 % (0-9) Eosinophils (%) (Auto) 4 % (0-3) Basophils (%) (Auto) 1 % (0-3) Neutrophils # (Auto) 7.6 x10^3uL (1.8-7.7) Lymphocytes # (Auto) 1.3 x10^3/uL (1.0-4.8) Monocytes # (Auto) 0.6 x10^3/uL (0.0-1.1) Eosinophils # (Auto) 0.4 x10^3/uL (0.0-0.7) Basophils # (Auto) 0.1 x10^3/uL (0.0-0.2) Erythrocyte Sedimentation Rate 100 (0-15) Hemoglobin A1c 6.6 % (4.8-5.6) Glucose (Fingerstick) 76 mg/dL (70-99) Test 04/25/19 07:37 04/25/19 11:17 04/25/19 17:04 04/25/19 21:00 Glucose (Fingerstick) 107 mg/dL (70-99) 146 mg/dL (70-99) 147 mg/dL (70-99) 147 mg/dL (70-99) Test 04/26/19 08:00 White Blood Count 8.2 x10^3/uL (4.0-11.0) Red Blood Count 3.18 x10^6/uL (4.30-5.70) Hemoglobin 8.6 g/dL (13.0-17.5) Hematocrit 27.4 % (39.0-53.0) Mean Corpuscular Volume 86 fL (79-100) Mean Corpuscular Hemoglobin 27 pg (25-35) Mean Corpuscular Hemoglobin Concent 31 g/dL (31-37) Red Cell Distribution Width 18.8 % (11.5-14.5) Platelet Count 329 x10^3/uL (140-400) Sodium Level 140 mmol/L (136-145) Potassium Level 3.9 mmol/L (3.5-5.1) Chloride Level 101 mmol/L (98-107) Carbon Dioxide Level 31 mmol/L (21-32) Anion Gap 8 (6-14) Blood Urea Nitrogen 37 mg/dL (8-26) Creatinine 4.2 mg/dL (0.7-1.3) Estimated GFR (Cockcroft-Gault) 16.7 Glucose Level 109 mg/dL (70-99) Calcium Level 8.3 mg/dL (8.5-10.1) Laboratory Tests Test 04/25/19 11:17 04/25/19 17:04 04/25/19 21:00 04/26/19 08:00 Glucose (Fingerstick) 146 mg/dL (70-99) 147 mg/dL (70-99) 147 mg/dL (70-99) White Blood Count 8.2 x10^3/uL (4.0-11.0) Red Blood Count 3.18 x10^6/uL (4.30-5.70) Hemoglobin 8.6 g/dL (13.0-17.5) Hematocrit 27.4 % (39.0-53.0) Mean Corpuscular Volume 86 fL (79-100) Mean Corpuscular Hemoglobin 27 pg (25-35) Mean Corpuscular Hemoglobin Concent 31 g/dL (31-37) Red Cell Distribution Width 18.8 % (11.5-14.5) Platelet Count 329 x10^3/uL (140-400) Sodium Level 140 mmol/L (136-145) Potassium Level 3.9 mmol/L (3.5-5.1) Chloride Level 101 mmol/L (98-107) Carbon Dioxide Level 31 mmol/L (21-32) Anion Gap 8 (6-14) Blood Urea Nitrogen 37 mg/dL (8-26) Creatinine 4.2 mg/dL (0.7-1.3) Estimated GFR (Cockcroft-Gault) 16.7 Glucose Level 109 mg/dL (70-99) Calcium Level 8.3 mg/dL (8.5-10.1) Medications Current Medications Linezolid/Dextrose 300 ml @ 300 mls/hr Q12HR IV Last administered on 04/25/19 21:49; Start 04/24/19 at 13:30 Piperacillin Sod/ Tazobactam Sod 2.25 gm/Sodium Chloride 50 ml @ 100 mls/hr Q 8HRS IV Last administered on 04/26/19 06:06; Start 04/24/19 at 14:00 Magnesium Hydroxide (Milk Of Magnesia) 2,400 mg PRN DAILY PRN PO CONSTIPATION; Start 04/24/19 at 12:15 Ondansetron HCl (Zofran Odt) 4 mg PRN Q6HRS PRN PO NAUSEA/VOMITING, 1st CHOICE; Start 04/24/19 at 12:15 Tramadol HCl (Ultram) 25 mg PRN Q6HRS PRN PO MODERATE-SEVERE PAIN Last administered on 04/26/19 01:50; Start 04/24/19 at 12:15 Aspirin (Ecotrin) 81 mg DAILYWBKFT PO Last administered on 04/25/19 08:48; Start 04/24/19 at 13:30 Sevelamer Carbonate (Renvela) 800 mg TIDWMEALS PO Last administered on 04/25/19 17:53; Start 04/24/19 at 13:30 Cyanocobalamin (Vitamin B-12) 1,000 mcg DAILY PO Last administered on 04/25/19 08:48; Start 04/24/19 at 13:30 Allopurinol (Zyloprim) 100 mg DAILY PO Last administered on 04/25/19 08:48; Start 04/24/19 at 13:30 Atorvastatin Calcium (Lipitor) 40 mg QHS PO Last administered on 04/25/19 21:50; Start 04/24/19 at 21:00 Acetaminophen (Tylenol) 325 mg PRN QID PRN PO MILD PAIN / TEMP; Start 04/24/19 at 12:15 Clopidogrel Bisulfate (Plavix) 75 mg DAILYWBKFT PO Last administered on 04/25/19at 08:48; Start 04/24/19 at 13:30 Metoclopramide HCl (Reglan) 5 mg PRN BFRMEALHC PRN PO NAUSEA/VOMITING, 2nd CHOICE; Start 04/24/19 at 12:15 Vitamin D (Vitamin D3) 1,000 unit DAILY PO Last administered on 04/25/19at 08:48; Start 04/24/19 at 13:30 Pantoprazole Sodium (Protonix) 40 mg DAILYAC PO Last administered on 04/26/19at 06:06; Start 04/24/19 at 13:30 Insulin Human Lispro (HumaLOG) 0-5 UNITS TIDWMEALS SQ ; Start 04/24/19 at 17:00 Dextrose (Dextrose 50%-Water Syringe) 12.5 gm PRN Q15MIN PRN IV SEE COMMENTS; Start 04/24/19 at 12:15 Lactobacillus Rhamnosus (Culturelle) 1 cap BID PO Last administered on 04/25/19at 21:50; Start 04/24/19 at 13:30 Vitamin B Complex/ Vitamin C (Krista-Beatriz) 1 tab DAILY PO Last administered on 04/25/19at 08:48; Start 04/24/19 at 13:30 Piperacillin Sod/ Tazobactam Sod 2.25 gm/Sodium Chloride 50 ml @ 100 mls/hr Q8HRS IV ; Start 04/24/19 at 14:00; Status UNV Clopidogrel Bisulfate (Plavix) 75 mg DAILYWBKFT PO ; Start 04/25/19 at 08:00; Status UNV Metoclopramide HCl (Reglan) 5 mg TIDBFRMEAL PO Last administered on 04/26/19at 06:06; Start 04/24/19 at 16:30 Vitamin D (Vitamin D3) 1,000 unit DAILY PO ; Start 04/25/19 at 09:00; Status UNV Pantoprazole Sodium (Protonix) 20 mg DAILYAC PO ; Start 04/25/19 at 07:30; Status UNV Aspirin (Onesimo Aspirin) 81 mg DAILYWBKFT PO ; Start 04/25/19 at 08:00; Status UNV Sevelamer Carbonate (Renvela) 800 mg TIDWMEALS PO ; Start 04/24/19 at 17:00; Status UNV Cyanocobalamin (Vitamin B-12) 1,000 mcg DAILY PO ; Start 04/25/19 at 09:00; Status UNV Lactobacillus Rhamnosus (Culturelle) 1 cap BID PO ; Start 04/24/19 at 21:00; Status UNV Allopurinol (Zyloprim) 100 mg DAILY PO ; Start 04/25/19 at 09:00; Status UNV Atorvastatin Calcium (Lipitor) 40 mg QHS PO ; Start 04/24/19 at 21:00; Status UNV Acetaminophen (Tylenol) 325 mg PRN Q6HRS PRN PO MILD PAIN / TEMP; Start 04/24/19 at 12:15; Status UNV Acetaminophen (Tylenol) 325 mg QID PO Last administered on 04/25/19at 21:50; Start 04/24/19 at 13:30 Ondansetron HCl (Zofran Odt) 4 mg PRN Q6HRS PRN PO NAUSEA/VOMITING; Start 04/24/19 at 12:15; Status UNV Tramadol HCl (Ultram) 25 mg PRN Q6HRS PRN PO PAIN; Start 04/24/19 at 12:15; Status UNV Diphenhydramine HCl (Benadryl) 25 mg PRN Q6HRS PRN PO ITCHING; Start 04/24/19 at 12:15 Magnesium Hydroxide (Milk Of Magnesia) 2,400 mg PRN DAILY PRN PO CONSTIPATION; Start 04/24/19 at 12:15; Status UNV Insulin Human Lispro (HumaLOG) 0-6 UNITS BG 300-39... TIDWMEALS SQ ; Start 04/24/19 at 17:00; Status UNV Sodium Chloride 1,000 ml @ 1,000 mls/hr Q1H PRN IV hypotension; Start 04/24/19 at 17:00; Stop 04/24/19 at 23:00; Status DC Sodium Chloride 1,000 ml @ 400 mls/hr Q2H30M PRN IV PATENCY; Start 04/24/19 at 17:00; Stop 04/24/19 at 23:00; Status DC Info (PHARMACY MONITORING -- do not chart) 1 each PRN DAILY PRN MC SEE COMMENTS; Start 04/24/19 at 17:15; Status UNV Info (PHARMACY MONITORING -- do not chart) 1 each PRN DAILY PRN MC SEE COMMENTS; Start 04/24/19 at 17:15 Darbepoetin Reinaldo (Aranesp) 60 mcg WEEKLYHS SQ Last administered on 04/25/19at 22:34; Start 04/25/19 at 21:00 Bacitracin 87311 unit/Sodium Chloride 500 ml @ 500 mls/hr 1X ONCE IRR ; Start 04/26/19 at 06:00; Stop 04/26/19 at 06:59; Status Cancel Ondansetron HCl (Zofran) 4 mg PRN Q6HRS PRN IV NAUSEA/VOMITING; Start 04/26/19 at 07:00; Stop 04/27/19 at 06:59 Morphine Sulfate (Morphine Sulfate) 1 mg PRN Q10MIN PRN IV SEVERE PAIN 7-10; Start 04/26/19 at 07:00; Stop 04/27/19 at 06:59 Ringer's Solution 1,000 ml @ 30 mls/hr Q24H IV ; Start 04/26/19 at 07:00; Stop 04/26/19 at 18:59 Hydromorphone HCl (Dilaudid) 0.5 mg PRN Q10MIN PRN IV SEV PAIN, Second choice; Start 04/26/19 at 07:00; Stop 04/27/19 at 06:59 Ondansetron HCl (Zofran) 4 mg PRN Q6HRS PRN IV NAUSEA/VOMITING; Start 04/26/19 at 07:00; Stop 04/27/19 at 06:59; Status UNV Morphine Sulfate (Morphine Sulfate) 1 mg PRN Q10MIN PRN IV SEVERE PAIN 7-10; S tart 04/26/19 at 07:00; Stop 04/27/19 at 06:59; Status UNV Ringer's Solution 1,000 ml @ 30 mls/hr Q24H IV ; Start 04/26/19 at 07:00; Stop 04/26/19 at 18:59; Status UNV Hydromorphone HCl (Dilaudid) 0.5 mg PRN Q10MIN PRN IV SEV PAIN, Second choice; Start 04/26/19 at 07:00; Stop 04/27/19 at 06:59; Status UNV Sodium Chloride 1,000 ml @ 1,000 mls/hr Q1H PRN IV hypotension; Start 04/26/19 at 07:17; Stop 04/26/19 at 13:16 Sodium Chloride 1,000 ml @ 400 mls/hr Q2H30M PRN IV PATENCY; Start 04/26/19 at 07:17; Stop 04/26/19 at 19:16 Info (PHARMACY MONITORING -- do not chart) 1 each PRN DAILY PRN MC SEE COMMENTS; Start 04/26/19 at 07:30; Status UNV Info (PHARMACY MONITORING -- do not chart) 1 each PRN DAILY PRN MC SEE COMMENTS; Start 04/26/19 at 07:30 Active Scripts Active Cephalexin 250 Mg Capsule 500 Mg PO BID 14 Days Ondansetron Odt (Ondansetron) 4 Mg Tab.rapdis 4 Mg PO Q6HRS PRN Metoclopramide Hcl 5 Mg Tablet 5 Mg PO TIDACHC Humalog (Insulin Lispro) 100 Unit/1 Ml Insuln.pen 0 Units SQ TIDWMEALS 30 Days BG 150-199= 1 units 200-299= 2 units 300-399= 4 units 400-499= 6 units ac tid sliding scale Reported Zofran (Ondansetron Hcl) 4 Mg Tablet 1 Tab PO Q6HRS Vitamin D3 (Cholecalciferol (Vitamin D3)) 1,000 Unit Tablet 1 Tab PO DAILY Vitamin B-12 (Cyanocobalamin (Vitamin B-12)) 1,000 Mcg Tablet 1 Tab PO DAILY Tylenol (Acetaminophen) 325 Mg Tablet 325 Mg PO QID Tylenol (Acetaminophen) 325 Mg Tablet 1 Tab PO PRN Q4HRS Tramadol Hcl 50 Mg Tablet 25 Mg PO Q6HRS PRN Senna (Sennosides) 8.6 Mg Tablet 8.6 Mg PO PRN DAILY PRN 2 tabs Renvela (Sevelamer Carbonate) 800 Mg Tablet 800 Mg PO TIDWMEALS Renal Caps Softgel (Folic Acid/Vitamin B Comp W-C) 1 Mg Capsule 1 Mg PO DAILY Reglan (Metoclopramide Hcl) 10 Mg Tablet 5 Mg PO TID Protonix (Pantoprazole Sodium) 20 Mg Tablet.dr 1 Tab PO DAILY Probiotic (Lactobacillus Acidophilus) 1 Each Capsule 1 Each PO BID Milk Of Magnesia (Magnesium Hydroxide) 400 Mg/5 Ml Oral.susp 400 Mg PO PRN DAILY PRN Lipitor (Atorvastatin Calcium) 40 Mg Tablet 1 Tab PO QHS Skin Treatment (Ammonium Lactate) 225 Gm Lotion 225 Gm TP BID Humalog (Insulin Lispro) 100 Unit/1 Ml Insuln.pen 100 Unit SQ TIDBFRMEAL 150-199=1 unit 200-299=2 units 300-399=4 units 100-499=6 units Duoneb 0.5-3(2.5) Mg/3 Ml (Albuterol/Ipratropium) 3 Ml Ampul.neb 3 Ml NEB PRN Q4HRS PRN Clopidogrel (Clopidogrel Bisulfate) 75 Mg Tablet 1 Tab PO DAILY Clindamycin Hcl 150 Mg Capsule 150 Mg PO TID Dulcolax (Bisacodyl) 10 Mg Supp.rect 10 Mg RC PRN DAILY PRN Benadryl Allergy (Diphenhydramine Hcl) 12.5 Mg/5 Ml Liquid 10 Ml PO PRN Q6-8HRS Aspir-Low (Aspirin) 81 Mg Tablet.dr 1 Tab PO DAILY Allopurinol 100 Mg Tablet 1 Tab PO DAILY Tramadol Hcl 50 Mg Tablet 0.5 Mg PO PRN Q6HRS PRN Senna (Sennosides) 8.6 Mg Tablet 2 Tab PO PRN DAILY PRN Bisacodyl 10 Mg Supp.rect 10 Mg RC PRN DAILY PRN Protonix (Pantoprazole Sodium) 20 Mg Tablet.dr 1 Tab PO DAILY Duoneb 0.5-3(2.5) Mg/3 Ml (Albuterol/Ipratropium) 3 Ml Ampul.neb 3 Ml NEB PRN Q4HRS PRN Milk Of Magnesia (Magnesium Hydroxide) 400 Mg/5 Ml Oral.susp 400 Mg PO PRN DAILY PRN Lac-Hydrin Five (Ammonium Lactate) 226 Gm Lotion 226 Gm TP BID Benadryl Allergy (Diphenhydramine Hcl) 12.5 Mg/5 Ml Liquid 25 Mg PO PRN Q6HRS PRN Vitamin B-12 (Cyanocobalamin (Vitamin B-12)) 1,000 Mcg Tablet 1 Tab PO DAILY Allopurinol 100 Mg Tablet 1 Tab PO DAILY Renal Caps Softgel (Folic Acid/Vitamin B Comp W-C) 1 Mg Capsule 1 Cap PO DAILY Acidophilus Lactobacilli (Lactobacillus Acidophilus) 1 Each Capsule 1 Each PO BID Renvela (Sevelamer Carbonate) 800 Mg Tablet 800 Mg PO TIDWMEALS Tylenol (Acetaminophen) 325 Mg Tablet 1 Tab PO PRN Q4HRS Aspirin 81 Mg Tab.chew 81 Mg PO DAILY Lipitor (Atorvastatin Calcium) 40 Mg Tablet 40 Mg PO HS Clopidogrel (Clopidogrel Bisulfate) 75 Mg Tablet 75 Mg PO DAILY Vitamin D-3 (Cholecalciferol (Vitamin D3)) 2,000 Unit Capsule 1,000 Unit PO DAILY Vitals/I & O Vital Sign - Last 24 Hours 04/25/19 04/25/19 04/25/19 04/25/19 15:00 17:53 19:00 20:00 Temp 98.2 97.7 98.2 97.7 Pulse 59 63 Resp 16 18 B/P (MAP) 130/64 (86) 132/63 (86) Pulse Ox 96 96 O2 Delivery Room Air Room Air Room Air Room Air 04/25/19 04/26/19 04/26/19 04/26/19 23:00 01:50 02:50 03:00 Temp 98.1 97.5 98.1 97.5 Pulse 65 55 Resp 18 18 16 18 B/P (MAP) 115/61 (79) 105/57 (73) Pulse Ox 95 97 O2 Delivery Room Air Room Air Room Air Room Air Intake and Output 04/25/19 04/25/19 04/26/19 14:59 22:59 06:59 Intake Total 770 ml 200 ml 310 ml Output Total 0 ml Balance 770 ml 200 ml 310 ml RANDAL REBOLLEDO APRN April 26, 2019 11:09
--- NOTE | 2019-04-26 11:24 | NUR ---
SW following for discharge planning. Discussed with RN, pt is from [facility], but can return there SNU. Pt in dialysis today, having blood today, BKA scheduled for tomorrow (04/27/19). SW will continue to follow for discharge planning.
[2019-04-26] MEDS: ATORVASTATIN CALCIUM 40 MG TABLET. PO SCH (21:34)
[2019-04-27] VITALS (8 sets, daily range): BP systolic 100–151; BP diastolic 29–70
[2019-04-27] MEDS: PIPERACILLIN/TAZOBACTAM 2.25 GM in IV NORMAL SALINE 50ML 50 ML IV SCH ×4 (01:06→23:12)
--- NOTE | 2019-04-27 02:19 | NUR ---
0200 blood transfusion vitals used for 0300 vitals.
[2019-04-27 02:29] LABS: HEMATOCRIT 35.7 % (39.0-53.0); HEMOGLOBIN 11.2 g/dL (13.0-17.5)
--- NOTE | 2019-04-27 03:31 | NUR ---
Pt. received 2nd unit of blood this shift. Pt. tolerated well. Antibiotics were hung late d/t blood running.
[2019-04-27] MEDS ORDERED: LIDOCAINE 1% PF 30ML 48 ML, SODIUM BICARBONATE VIAL 12 MEQ in TOTAL VOLUME SYRINGE 60 ML ID ONE (06:00)
[2019-04-27] MEDS ORDERED: fentaNYL PF VIAL 100 MCG/2 ML VIAL IV PRN (07:00)
[2019-04-27] MEDS ORDERED: HYDROmorphone 2 MG/ML VIAL IV PRN (07:00)
[2019-04-27] MEDS ORDERED: MORPHINE SULFATE 2 MG/ML VIAL. IV PRN (07:00)
[2019-04-27] MEDS ORDERED: PROCHLORPERAZINE 10 MG/2 ML VIAL. IV PRN (07:00)
[2019-04-27] MEDS ORDERED: ONDANSETRON PF 4 MG/2 ML VIAL. IV PRN (07:00)
[2019-04-27] MEDS ORDERED: IV NORMAL SALINE 1000ML BAG 1,000 ML IV SCH (07:00)
[2019-04-27] MEDS: METOCLOPRAMIDE 5 MG TABLET. PO SCH ×4 (07:30→18:08)
[2019-04-27] MEDS: PANTOPRAZOLE 40 MG TABLET.DR. PO SCH (07:30)
--- NOTE | 2019-04-27 07:58 | NUR ---
FABRIZIO following for discharge planning. FABRIZIO spoke with Dahiana at [facility], pt does NOT have any skilled days left so will go back to [facility]. Pt scheduled for amputation surgery today. FABRIZIO will continue to follow.
[2019-04-27] MEDS: INSULIN LISPRO 300 UNITS/3 ML INSULN.PEN. SQ SCH ×3 (08:00→17:00)
[2019-04-27] MEDS: ASPIRIN ENTERIC COATED 81 MG TABLET.DR. PO SCH (08:00)
[2019-04-27] MEDS: CLOPIDOGREL BISULFATE 75 MG TABLET PO SCH (08:00)
[2019-04-27] MEDS: SEVELAMER CARBONATE 800 MG TABLET. PO SCH ×4 (08:00→18:08)
[2019-04-27] MEDS: FOLIC/VIT B COMP W-C (RENAL) TABLET. PO SCH (08:06)
[2019-04-27] MEDS: LACTOBACILLUS RHAMNOSUS GG 1 CAPSULE. PO SCH ×2 (08:06→21:38)
[2019-04-27] MEDS: CHOLECALCIFEROL (VITAMIN D3) 1,000 UNIT TABLET PO SCH (08:06)
[2019-04-27] MEDS: ACETAMINOPHEN 325 MG TABLET. PO SCH ×4 (08:06→21:39)
[2019-04-27] MEDS: CYANOCOBALAMIN (VITAMIN B-12) 1,000 MCG TABLET. PO SCH (08:06)
[2019-04-27] MEDS: ALLOPURINOL 100 MG TABLET. PO SCH (08:06)
--- NOTE | 2019-04-27 08:47 | PDOC ---
PROGRESS NOTES Subjective Subjective seen in surgical holding. family present. feels well. comfortable. lab reviewed. Objective Objective Vital Signs Date Time Temp Pulse Resp B/P (MAP) Pulse Ox O2 Delivery O2 Flow Rate FiO2 04/27/19 07:00 96.3 70 20 139/67 (91) 100 Room Air 96.3 Intake and Output 04/27/19 06:59 Intake Total 1590 ml Output Total 50 ml Balance 1540 ml Intake Oral 690 ml Blood Product IV Normal Saline Flush 900 ml Output Urine Total 50 ml Physical Exam Abdomen: Soft, Other (obese) Heart: Normal S1, Normal S2 Extremities: No edema, Other (right TMA with dry dressing) General: Alert HEENT: Atraumatic Lungs: Clear to auscultation Neuro: Normal speech Psych/Mental Status: Mental status NL Skin: No rashes Assessment Assessment 1. Infected right lateral foot wound. 2. History of right transmetatarsal amputation with skin graft. 3. End-stage renal disease on hemodialysis. 4. Obstructive sleep apnea. 5. Diabetes mellitus type 2 with peripheral neuropathy. 6. Peripheral arterial disease. 7. Anemia of chronic disease. 8. Hyperlipidemia. 9. Morbid obesity. 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 Labs Laboratory Tests Test 04/25/19 11:17 04/25/19 17:04 04/25/19 21:00 04/26/19 08:00 Glucose (Fingerstick) 146 mg/dL (70-99) 147 mg/dL (70-99) 147 mg/dL (70-99) White Blood Count 8.2 x10^3/uL (4.0-11.0) Red Blood Count 3.18 x10^6/uL (4.30-5.70) Hemoglobin 8.6 g/dL (13.0-17.5) Hematocrit 27.4 % (39.0-53.0) Mean Corpuscular Volume 86 fL (79-100) Mean Corpuscular Hemoglobin 27 pg (25-35) Mean Corpuscular Hemoglobin Concent 31 g/dL (31-37) Red Cell Distribution Width 18.8 % (11.5-14.5) Platelet Count 329 x10^3/uL (140-400) Sodium Level 140 mmol/L (136-145) Potassium Level 3.9 mmol/L (3.5-5.1) Chloride Level 101 mmol/L (98-107) Carbon Dioxide Level 31 mmol/L (21-32) Anion Gap 8 (6-14) Blood Urea Nitrogen 37 mg/dL (8-26) Creatinine 4.2 mg/dL (0.7-1.3) Estimated GFR (Cockcroft-Gault) 16.7 Glucose Level 109 mg/dL (70-99) Calcium Level 8.3 mg/dL (8.5-10.1) Test 04/26/19 13:05 04/26/19 16:31 04/26/19 20:50 04/27/19 02:20 Glucose (Fingerstick) 76 mg/dL (70-99) 117 mg/dL (70-99) 120 mg/dL (70-99) Hemoglobin 11.2 g/dL (13.0-17.5) Hematocrit 35.7 % (39.0-53.0) Mean Corpuscular Hemoglobin Concent 31 g/dL (31-37) Test 04/27/19 07:44 Glucose (Fingerstick) 91 mg/dL (70-99) Laboratory Tests Test 04/26/19 13:05 04/26/19 16:31 04/26/19 20:50 04/27/19 02:20 Glucose (Fingerstick) 76 mg/dL (70-99) 117 mg/dL (70-99) 120 mg/dL (70-99) Hemoglobin 11.2 g/dL (13.0-17.5) Hematocrit 35.7 % (39.0-53.0) Mean Corpuscular Hemoglobin Concent 31 g/dL (31-37) Test 04/27/19 07:44 Glucose (Fingerstick) 91 mg/dL (70-99) Microbiology 04/24/19 Anaerobic/Aerobic Culture, Resulted Pending 04/24/19 Anaerobic Culture Result 1 (SIXTO), Resulted Pending 04/24/19 Aerobic Culture, Resulted Pending 04/24/19 Aerobic Culture Result 1 (SIXTO), Resulted Pending 04/24/19 Gram Stain - Final, Resulted 04/24/19 Gram Stain Result 1 (SIXTO) - Final, Resulted 04/24/19 Gram Stain Result 2 (SIXTO) - Final, Resulted Medications Current Medications Linezolid/Dextrose 300 ml @ 300 mls/hr Q12HR IV Last administered on 04/27/19 08:33; Start 04/24/19 at 13:30 Piperacillin Sod/ Tazobactam Sod 2.25 gm/Sodium Chloride 50 ml @ 100 mls/hr Q8HRS IV Last administered on 04/27/19 05:43; Start 04/24/19 at 14:00 Magnesium Hydroxide (Milk Of Magnesia) 2,400 mg PRN DAILY PRN PO CONSTIPATION; Start 04/24/19 at 12:15 Ondansetron HCl (Zofran Odt) 4 mg PRN Q6HRS PRN PO NAUSEA/VOMITING, 1st CHOICE; Start 04/24/19 at 12:15 Tramadol HCl (Ultram) 25 mg PRN Q6HRS PRN PO MODERATE-SEVERE PAIN Last ad ministered on 04/26/19 21:34; Start 04/24/19 at 12:15 Aspirin (Ecotrin) 81 mg DAILYWBKFT PO Last administered on 04/25/19 08:48; Start 04/24/19 at 13:30 Sevelamer Carbonate (Renvela) 800 mg TIDWMEALS PO Last administered on 04/26/19 17:08; Start 04/24/19 at 13:30 Cyanocobalamin (Vitamin B-12) 1,000 mcg DAILY PO Last administered on 04/25/19 08:48; Start 04/24/19 at 13:30 Allopurinol (Zyloprim) 100 mg DAILY PO Last administered on 04/25/19 08:48; Start 04/24/19 at 13:30 Atorvastatin Calcium (Lipitor) 40 mg QHS PO Last administered on 04/26/19 21:34; Start 04/24/19 at 21:00 Acetaminophen (Tylenol) 325 mg PRN QID PRN PO MILD PAIN / TEMP; Start 04/24/19 at 12:15 Clopidogrel Bisulfate (Plavix) 75 mg DAILYWBKFT PO Last administered on 04/25/19 08:48; Start 04/24/19 at 13:30 Metoclopramide HCl (Reglan) 5 mg PRN BFRMEALHC PRN PO NAUSEA/VOMITING, 2nd CHOICE; Start 04/24/19 at 12:15 Vitamin D (Vitamin D3) 1,000 unit DAILY PO Last administered on 04/25/19at 08:48; Start 04/24/19 at 13:30 Pantoprazole Sodium (Protonix) 40 mg DAILYAC PO Last administered on 04/26/19at 06:06; Start 04/24/19 at 13:30 Insulin Human Lispro (HumaLOG) 0-5 UNITS TIDWMEALS SQ ; Start 04/24/19 at 17:00 Dextrose (Dextrose 50%-Water Syringe) 12.5 gm PRN Q15MIN PRN IV SEE COMMENTS; Start 04/24/19 at 12:15 Lactobacillus Rhamnosus (Culturelle) 1 cap BID PO Last administered on 04/26/19at 21:33; Start 04/24/19 at 13:30 Vitamin B Complex/ Vitamin C (Krista-Beatriz) 1 tab DAILY PO Last administered on 04/25/19at 08:48; Start 04/24/19 at 13:30 Piperacillin Sod/ Tazobactam Sod 2.25 gm/Sodium Chloride 50 ml @ 100 mls/hr Q8HRS IV ; Start 04/24/19 at 14:00; Status UNV Clopidogrel Bisulfate (Plavix) 75 mg DAILYWBKFT PO ; Start 04/25/19 at 08:00; Status UNV Metoclopramide HCl (Reglan) 5 mg TIDBFRMEAL PO Last administered on 04/26/19at 17:08; Start 04/24/19 at 16:30 Vitamin D (Vitamin D3) 1,000 unit DAILY PO ; Start 04/25/19 at 09:00; Status UNV Pantoprazole Sodium (Protonix) 20 mg DAILYAC PO ; Start 04/25/19 at 07:30; Status UNV Aspirin (Onesimo Aspirin) 81 mg DAILYWBKFT PO ; Start 04/25/19 at 08:00; Status UNV Sevelamer Carbonate (Renvela) 800 mg TIDWMEALS PO ; Start 04/24/19 at 17:00; Status UNV Cyanocobalamin (Vitamin B-12) 1,000 mcg DAILY PO ; Start 04/25/19 at 09:00; Status UNV Lactobacillus Rhamnosus (Culturelle) 1 cap BID PO ; Start 04/24/19 at 21:00; Status UNV Allopurinol (Zyloprim) 100 mg DAILY PO ; Start 04/25/19 at 09:00; Status UNV Atorvastatin Calcium (Lipitor) 40 mg QHS PO ; Start 04/24/19 at 21:00; Status UNV Acetaminophen (Tylenol) 325 mg PRN Q6HRS PRN PO MILD PAIN / TEMP; Start 04/24/19 at 12:15; Status UNV Acetaminophen (Tylenol) 325 mg QID PO Last administered on 04/26/19at 17:08; Start 04/24/19 at 13:30 Ondansetron HCl (Zofran Odt) 4 mg PRN Q6HRS PRN PO NAUSEA/VOMITING; Start 04/24/19 at 12:15; Status UNV Tramadol HCl (Ultram) 25 mg PRN Q6HRS PRN PO PAIN; Start 04/24/19 at 12:15; Status UNV Diphenhydramine HCl (Benadryl) 25 mg PRN Q6HRS PRN PO ITCHING; Start 04/24/19 at 12:15 Magnesium Hydroxide (Milk Of Magnesia) 2,400 mg PRN DAILY PRN PO CONSTIPATION; Start 04/24/19 at 12:15; Status UNV Insulin Human Lispro (HumaLOG) 0-6 UNITS BG 300-39... TIDWMEALS SQ ; Start 04/24/19 at 17:00; Status UNV Sodium Chloride 1,000 ml @ 1,000 mls/hr Q1H PRN IV hypotension; Start 04/24/19 at 17:00; Stop 04/24/19 at 23:00; Status DC Sodium Chloride 1,000 ml @ 400 mls/hr Q2H30M PRN IV PATENCY; Start 04/24/19 at 17:00; Stop 04/24/19 at 23:00; Status DC Info (PHARMACY MONITORING -- do not chart) 1 each PRN DAILY PRN MC SEE COMMENTS; Start 04/24/19 at 17:15; Status UNV Info (PHARMACY MONITORING -- do not chart) 1 each PRN DAILY PRN MC SEE COMMENTS; Start 04/24/19 at 17:15; Stop 04/26/19 at 11:06; Status DC Darbepoetin Reinaldo (Aranesp) 60 mcg WEEKLYHS SQ Last administered on 04/25/19at 22:34; Start 04/25/19 at 21:00 Bacitracin 47763 unit/Sodium Chloride 500 ml @ 500 mls/hr 1X ONCE IRR ; Start 04/26/19 at 06:00; Stop 04/26/19 at 06:59; Status Cancel Ondansetron HCl (Zofran) 4 mg PRN Q6HRS PRN IV NAUSEA/VOMITING; Start 04/26/19 at 07:00; Stop 04/27/19 at 06:59; Status DC Morphine Sulfate (Morphine Sulfate) 1 mg PRN Q10MIN PRN IV SEVERE PAIN 7-10; Start 04/26/19 at 07:00; Stop 04/27/19 at 06:59; Status DC Ringer's Solution 1,000 ml @ 30 mls/hr Q24H IV ; Start 04/26/19 at 07:00; Stop 04/26/19 at 18:59; Status DC Hydromorphone HCl (Dilaudid) 0.5 mg PRN Q10MIN PRN IV SEV PAIN, Second choice; Start 04/26/19 at 07:00; Stop 04/27/19 at 06:59; Status DC Ondansetron HCl (Zofran) 4 mg PRN Q6HRS PRN IV NAUSEA/VOMITING; Start 04/26/19 at 07:00; Stop 04/27/19 at 06:59; Status UNV Morphine Sulfate (Morphine Sulfate) 1 mg PRN Q10MIN PRN IV SEVERE PAIN 7-10; Start 04/26/19 at 07:00; Stop 04/27/19 at 06:59; Status UNV Ringer's Solution 1,000 ml @ 30 mls/hr Q24H IV ; Start 04/26/19 at 07:00; Stop 04/26/19 at 18:59; Status UNV Hydromorphone HCl (Dilaudid) 0.5 mg PRN Q10MIN PRN IV SEV PAIN, Second choice; Start 04/26/19 at 07:00; Stop 04/27/19 at 06:59; Status UNV Sodium Chloride 1,000 ml @ 1,000 mls/hr Q1H PRN IV hypotension; Start 04/26/19 at 07:17; Stop 04/26/19 at 13:16; Status DC Sodium Chloride 1,000 ml @ 400 mls/hr Q2H30M PRN IV PATENCY; Start 04/26/19 at 07:17; Stop 04/26/19 at 19:16; Status DC Info (PHARMACY MONITORING -- do not chart) 1 each PRN DAILY PRN MC SEE COMMENTS; Start 04/26/19 at 07:30; Status UNV Info (PHARMACY MONITORING -- do not chart) 1 each PRN DAILY PRN MC SEE COMMENTS; Start 04/26/19 at 07:30 Lidocaine HCl 48 ml/Sodium Bicarbonate 12 meq/Miscellaneous 60 ml @ 60 mls/hr 1X ONCE ID ; Start 04/27/19 at 06:00; Stop 04/27/19 at 06:59; Status DC Ondansetron HCl (Zofran) 4 mg PRN Q6HRS PRN IV NAUSEA/VOMITING; Start 04/27/19 at 07:00; Stop 04/28/19 at 06:59 Fentanyl Citrate (Fentanyl 2ml Vial) 25 mcg PRN Q5MIN PRN IV MILD PAIN 1-3; Start 04/27/19 at 07:00; Stop 04/28/19 at 06:59 Fentanyl Citrate (Fentanyl 2ml Vial) 50 mcg PRN Q5MIN PRN IV MODERATE TO SEVERE PAIN; Start 04/27/19 at 07:00; Stop 04/28/19 at 06:59 Morphine Sulfate (Morphine Sulfate) 1 mg PRN Q10MIN PRN IV SEVERE PAIN 7-10; Start 04/27/19 at 07:00; Stop 04/28/19 at 06:59 Hydromorphone HCl (Dilaudid) 0.5 mg PRN Q10MIN PRN IV SEV PAIN, Second choice; Start 04/27/19 at 07:00; Stop 04/28/19 at 06:59 Prochlorperazine Edisylate (Compazine) 5 mg PACU PRN PRN IV NAUSEA, MRX1; Start 04/27/19 at 07:00; Stop 04/28/19 at 06:59 Sodium Chloride 1,000 ml @ 0 mls/hr Q0M IV ; Start 04/27/19 at 07:00 Active Scripts Active Cephalexin 250 Mg Capsule 500 Mg PO BID 14 Days Ondansetron Odt (Ondansetron) 4 Mg Tab.rapdis 4 Mg PO Q6HRS PRN Metoclopramide Hcl 5 Mg Tablet 5 Mg PO TIDACHC Humalog (Insulin Lispro) 100 Unit/1 Ml Insuln.pen 0 Units SQ TIDWMEALS 30 Days BG 150-199= 1 units 200-299= 2 units 300-399= 4 units 400-499= 6 units ac tid sliding scale Reported Zofran (Ondansetron Hcl) 4 Mg Tablet 1 Tab PO Q6HRS Vitamin D3 (Cholecalciferol (Vitamin D3)) 1,000 Unit Tablet 1 Tab PO DAILY Vitamin B-12 (Cyanocobalamin (Vitamin B-12)) 1,000 Mcg Tablet 1 Tab PO DAILY Tylenol (Acetaminophen) 325 Mg Tablet 325 Mg PO QID Tylenol (Acetaminophen) 325 Mg Tablet 1 Tab PO PRN Q4HRS Tramadol Hcl 50 Mg Tablet 25 Mg PO Q6HRS PRN Senna (Sennosides) 8.6 Mg Tablet 8.6 Mg PO PRN DAILY PRN 2 tabs Renvela (Sevelamer Carbonate) 800 Mg Tablet 800 Mg PO TIDWMEALS Renal Caps Softgel (Folic Acid/Vitamin B Comp W-C) 1 Mg Capsule 1 Mg PO DAILY Reglan (Metoclopramide Hcl) 10 Mg Tablet 5 Mg PO TID Protonix (Pantoprazole Sodium) 20 Mg Tablet.dr 1 Tab PO DAILY Probiotic (Lactobacillus Acidophilus) 1 Each Capsule 1 Each PO BID Milk Of Magnesia (Magnesium Hydroxide) 400 Mg/5 Ml Oral.susp 400 Mg PO PRN DAILY PRN Lipitor (Atorvastatin Calcium) 40 Mg Tablet 1 Tab PO QHS Skin Treatment (Ammonium Lactate) 225 Gm Lotion 225 Gm TP BID Humalog (Insulin Lispro) 100 Unit/1 Ml Insuln.pen 100 Unit SQ TIDBFRMEAL 150-199=1 unit 200-299=2 units 300-399=4 units 100-499=6 units Duoneb 0.5-3(2.5) Mg/3 Ml (Albuterol/Ipratropium) 3 Ml Ampul.neb 3 Ml NEB PRN Q4HRS PRN Clopidogrel (Clopidogrel Bisulfate) 75 Mg Tablet 1 Tab PO DAILY Clindamycin Hcl 150 Mg Capsule 150 Mg PO TID Dulcolax (Bisacodyl) 10 Mg Supp.rect 10 Mg RC PRN DAILY PRN Benadryl Allergy (Diphenhydramine Hcl) 12.5 Mg/5 Ml Liquid 10 Ml PO PRN Q6-8HRS Aspir-Low (Aspirin) 81 Mg Tablet.dr 1 Tab PO DAILY Allopurinol 100 Mg Tablet 1 Tab PO DAILY Tramadol Hcl 50 Mg Tablet 0.5 Mg PO PRN Q6HRS PRN Senna (Sennosides) 8.6 Mg Tablet 2 Tab PO PRN DAILY PRN Bisacodyl 10 Mg Supp.rect 10 Mg RC PRN DAILY PRN Protonix (Pantoprazole Sodium) 20 Mg Tablet.dr 1 Tab PO DAILY Duoneb 0.5-3(2.5) Mg/3 Ml (Albuterol/Ipratropium) 3 Ml Ampul.neb 3 Ml NEB PRN Q4HRS PRN Milk Of Magnesia (Magnesium Hydroxide) 400 Mg/5 Ml Oral.susp 400 Mg PO PRN DAILY PRN Lac-Hydrin Five (Ammonium Lactate) 226 Gm Lotion 226 Gm TP BID Benadryl Allergy (Diphenhydramine Hcl) 12.5 Mg/5 Ml Liquid 25 Mg PO PRN Q6HRS PRN Vitamin B-12 (Cyanocobalamin (Vitamin B-12)) 1,000 Mcg Tablet 1 Tab PO DAILY Allopurinol 100 Mg Tablet 1 Tab PO DAILY Renal Caps Softgel (Folic Acid/Vitamin B Comp W-C) 1 Mg Capsule 1 Cap PO DAILY Acidophilus Lactobacilli (Lactobacillus Acidophilus) 1 Each Capsule 1 Each PO BID Renvela (Sevelamer Carbonate) 800 Mg Tablet 800 Mg PO TIDWMEALS Tylenol (Acetaminophen) 325 Mg Tablet 1 Tab PO PRN Q4HRS Aspirin 81 Mg Tab.chew 81 Mg PO DAILY Lipitor (Atorvastatin Calcium) 40 Mg Tablet 40 Mg PO HS Clopidogrel (Clopidogrel Bisulfate) 75 Mg Tablet 75 Mg PO DAILY Vitamin D-3 (Cholecalciferol (Vitamin D3)) 2,000 Unit Capsule 1,000 Unit PO DAILY Vitals/I & O Vital Sign - Last 24 Hours 04/26/19 04/26/19 04/26/19 04/26/19 14:59 15:00 15:13 15:15 Temp 97.9 97.9 97.7 97.9 97.9 97.7 Pulse 65 65 70 Resp 16 18 16 18 B/P (MAP) 108/52 108/52 (70) 115/56 Pulse Ox 97 O2 Delivery Room Air Room Air 04/26/19 04/26/19 04/26/19 04/26/19 16:17 17:18 17:54 18:59 Temp 97.5 98.1 98.1 98.0 97.5 98.1 98.1 98.0 Pulse 68 72 78 70 Resp 18 16 18 18 B/P (MAP) 122/41 106/30 105/30 116/31 04/26/19 04/26/19 04/26/19 04/26/19 19:00 20:00 21:34 21:50 Temp 97.5 97.9 97.5 97.9 Pulse 65 67 Resp 16 18 20 B/P (MAP) 125/58 (80) 96/45 Pulse Ox 99 O2 Delivery Room Air Room Air Room Air 04/26/19 04/26/19 04/26/19 04/26/19 22:18 22:34 23:00 23:35 Temp 97.8 97.9 97.9 97.8 97.9 97.9 Pulse 68 60 60 Resp 18 18 16 16 B/P (MAP) 109/54 103/56 (72) 103/56 Pulse Ox 97 O2 Delivery Room Air Room Air 04/27/19 04/27/19 04/27/19 04/27/19 00:20 00:55 02:00 03:00 Temp 97.6 97.6 97.4 97.4 97.6 97.6 97.4 97.4 Pulse 64 60 68 68 Resp 19 20 20 20 B/P (MAP) 100/43 133/62 115/62 115/62 (79) O2 Delivery Room Air 04/27/19 07:00 Temp 96.3 96.3 Pulse 70 Resp 20 B/P (MAP) 139/67 (91) Pulse Ox 100 O2 Delivery Room Air Intake and Output 04/26/19 04/26/19 04/27/19 14:59 22:59 06:59 Intake Total 420 ml 770 ml 400 ml Output Total 50 ml 0 ml Balance 420 ml 720 ml 400 ml KIMI TIDWELL MD April 27, 2019 08:47
[2019-04-27] MEDS ORDERED: ONDANSETRON PF 4 MG/2 ML VIAL. ONE (08:51)
[2019-04-27] MEDS ORDERED: LIDOCAINE 2% PF 5 ML VIAL. ONE (08:51)
[2019-04-27] MEDS ORDERED: FAMOTIDINE 20 MG/2 ML VIAL ONE (08:51)
[2019-04-27] MEDS ORDERED: PROPOFOL 20 ML IV ONE (08:51)
[2019-04-27] MEDS ORDERED: fentaNYL PF VIAL 100 MCG/2 ML VIAL ONE (09:16)
--- NOTE | 2019-04-27 09:41 | NUR ---
pt left for surgery at [id number]
[2019-04-27] MEDS ORDERED: DEXAMETHASONE SOD PHOS 4 MG/ML VIAL ONE (09:48)
--- NOTE | 2019-04-27 09:48 | PDOC ---
Infectious Disease Note Subjective: Subjective pt not seen as out of unit for surgery ROS: ROS Negative except for above. Vital Signs: Vital Signs Vital Signs Date Time Temp Pulse Resp B/P (MAP) Pulse Ox O2 Delivery O2 Flow Rate FiO2 04/27/19 08:30 97.7 60 20 118/54 94 Room Air 97.7 Physical Exam: PHYSICAL EXAM Medications: Inpatient Meds: Current Medications Medications (Trade) Dose Ordered Sig/Bhavesh Start Time Stop Time Status Last Admin Dose Admin Acetaminophen (Tylenol) 325 mg QID 04/24/19 13:30 04/26/19 17:08 325 MG Allopurinol (Zyloprim) 100 mg DAILY 04/25/19 09:00 UNV Aspirin (Onesimo Aspirin) 81 mg DAILYWBKFT 04/25/19 08:00 UNV Aspirin (Ecotrin) 81 mg DAILYWBKFT 04/24/19 13:30 04/25/19 08:48 81 MG Atorvastatin Calcium (Lipitor) 40 mg QHS 04/24/19 21:00 UNV Bacitracin 28073 unit/Sodium Chloride 500 ml @ 500 mls/hr 1X ONCE 04/26/19 06:00 04/26/19 06:59 Cancel Clopidogrel Bisulfate (Plavix) 75 mg DAILYWBKFT 04/25/19 08:00 UNV Cyanocobalamin (Vitamin B-12) 1,000 mcg DAILY 04/25/19 09:00 UNV Darbepoetin Reinaldo (Aranesp) 60 mcg WEEKLYHS 04/25/19 21:00 04/25/19 22:34 60 MCG Dextrose (Dextrose 50%-Water Syringe) 12.5 gm PRN Q15MIN PRN 04/24/19 12:15 Diphenhydramine HCl (Benadryl) 25 mg PRN Q6HRS PRN 04/24/19 12:15 Famotidine (Pepcid Vial) 20 mg STK-MED ONCE 04/27/19 08:51 04/27/19 08:52 DC Fentanyl Citrate (Fentanyl 2ml Vial) 100 mcg STK-MED ONCE 04/27/19 09:16 04/27/19 09:17 DC Hydromorphone HCl (Dilaudid) 0.5 mg PRN Q10MIN PRN 04/27/19 07:00 04/28/19 06:59 Info (PHARMACY MONITORING -- do not chart) 1 each PRN DAILY PRN 04/26/19 07:30 Insulin Human Lispro (HumaLOG) 0-6 UNITS BG 300-39... TIDWMEALS 04/24/19 17:00 UNV Lactobacillus Rhamnosus (Culturelle) 1 cap BID 04/24/19 21:00 UNV Lidocaine HCl (Lidocaine Pf 2% Vial) 5 ml STK-MED ONCE 04/27/19 08:51 04/27/19 08:52 DC Lidocaine HCl 48 ml/Sodium Bicarbonate 12 meq/Miscellaneous 60 ml @ 60 mls/hr 1X ONCE 04/27/19 06:00 04/27/19 06:59 DC Linezolid/Dextrose 300 ml @ 300 mls/hr Q12HR 04/24/19 13:30 04/27/19 08:33 300 MLS/HR Magnesium Hydroxide (Milk Of Magnesia) 2,400 mg PRN DAILY PRN 04/24/19 12:15 UNV Metoclopramide HCl (Reglan) 5 mg TIDBFRMEAL 04/24/19 16:30 04/26/19 17:08 5 MG Morphine Sulfate (Morphine Sulfate) 1 mg PRN Q10MIN PRN 04/27/19 07:00 04/28/19 06:59 Ondansetron HCl (Zofran Odt) 4 mg PRN Q6HRS PRN 04/24/19 12:15 UNV Ondansetron HCl (Zofran) 4 mg STK-MED ONCE 04/27/19 08:51 04/27/19 08:52 DC Pantoprazole Sodium (Protonix) 20 mg DAILYAC 04/25/19 07:30 UNV Piperacillin Sod/ Tazobactam Sod 2.25 gm/Sodium Chloride 50 ml @ 100 mls/hr Q8HRS 04/24/19 14:00 UNV Prochlorperazine Edisylate (Compazine) 5 mg PACU PRN PRN 04/27/19 07:00 04/28/19 06:59 Propofol 20 ml @ As Directed STK-MED ONCE 04/27/19 08:51 04/27/19 08:52 DC Ringer's Solution 1,000 ml @ 30 mls/hr Q24H 04/26/19 07:00 04/26/19 18:59 UNV Sevelamer Carbonate (Renvela) 800 mg TIDWMEALS 04/24/19 17:00 UNV Sodium Chloride 1,000 ml @ 0 mls/hr Q0M 04/27/19 07:00 Tramadol HCl (Ultram) 25 mg PRN Q6HRS PRN 04/24/19 12:15 UNV Vitamin B Complex/ Vitamin C (Krista-Beatriz) 1 tab DAILY 04/24/19 13:30 04/25/19 08:48 1 TAB Vitamin D (Vitamin D3) 1,000 unit DAILY 04/25/19 09:00 UNV Labs: Lab Laboratory Tests Test 04/26/19 13:05 04/26/19 16:31 04/26/19 20:50 04/27/19 02:20 Glucose (Fingerstick) 76 mg/dL (70-99) 117 mg/dL (70-99) 120 mg/dL (70-99) Hemoglobin 11.2 g/dL (13.0-17.5) Hematocrit 35.7 % (39.0-53.0) Mean Corpuscular Hemoglobin Concent 31 g/dL (31-37) Test 04/27/19 07:44 Glucose (Fingerstick) 91 mg/dL (70-99) Micro RUN DATE: 04/26/19 PAGE 1 RUN TIME: 1909 [facility] [address] [place] [address] Farhat Mccurdy M.D., [employer]k Screen Printer PATIENT: NARENDRA MACIAS ACCT: [id number] LOC: [address] [place] [address] U: [id number] AGE/SX: 78/M ROOM: [facility] RE04/24/[address]: KIMI TIDWELL MD : 1940 BED: 1 DIS: STATUS: ADM IN TLOC: -------- SPEC #: [id number] [place]ENTE: 04/24/19 STATUS: RES REQ #: [id number] RECD: 04/24/[address] [facility] [address]: KIMI TIDWELL MD SOURCE: FOOT ENTR: 04/24/191230 [facility] DR: YA HELLER MD [facility]: LARISA STYLES MD, SAMIR R MD NAIR, VENU S MD ORDERED: ANAER/AEROB/GS Procedure Result ANAEROBIC-AEROBIC CULTURE PENDING ANAEROBIC RES 1 PENDING AEROBIC CULT PENDING AEROBIC RES 1 PENDING GRAM STAIN Final Final report GRAM STAIN RES 1 Final Comment No white blood cells seen. GRAM STAIN RES 2 Final Comment Moderate amount of gram positive cocci in pairs, chains, and clusters Performed at: - [facility] [address], [place], [place] [id number] [employer] Merchandiser: ALEKSANDRA Issa MD, Phone: [phone] Objective: Assessment: RT Lateral necrotic foot wound S/P RT TMA with graft Lt heel superficial wound not infected DM with neuropathy ESRD on HD Anemia of chroniic disease Chronic lymphedema Chronic venous stasis PAD Plan: Plan of Care Cont zosyn and Zyvox plans are for surgery D/W LARISA FARRELL MD April 27, 2019 09:48
[2019-04-27] MEDS ORDERED: ePHEDrine PF IN SALINE 50 MG/10 ML SYRINGE. IV ONE (09:53)
[2019-04-27] MEDS ORDERED: LIDOCAINE 1% PF 30 ML VIAL. INJ ONE (10:01)
[2019-04-27] MEDS ORDERED: ROCURONIUM 50 MG/5 ML VIAL. ONE (10:10)
[2019-04-27] MEDS ORDERED: SEVOFLURANE 61 TO 120 MINUTES. IH ONE (11:04)
--- NOTE | 2019-04-27 11:20 | PDOC ---
Renal-Progress Notes Subjective Notes Notes NO NEW COMPLAINTS History of Present Illness Hx of present illness STABLE Vitals Vitals Vital Signs Date Time Temp Pulse Resp B/P (MAP) Pulse Ox O2 Delivery O2 Flow Rate FiO2 04/27/19 08:30 97.7 60 20 118/54 94 Room Air 97.7 Weight Weight [ ] I.O. Intake and Output Intake and Output 04/27/19 07:00 Intake Total 1590 ml Output Total 50 ml Balance 1540 ml Intake Oral 690 ml Blood Product IV Normal Saline Flush 900 ml Output Urine Total 50 ml Labs Labs Laboratory Tests Test 04/26/19 13:05 04/26/19 16:31 04/26/19 20:50 04/27/19 02:20 Glucose (Fingerstick) 76 mg/dL (70-99) 117 mg/dL (70-99) 120 mg/dL (70-99) Hemoglobin 11.2 g/dL (13.0-17.5) Hematocrit 35.7 % (39.0-53.0) Mean Corpuscular Hemoglobin Concent 31 g/dL (31-37) Test 04/27/19 07:44 Glucose (Fingerstick) 91 mg/dL (70-99) Micro Micro Microbiology 04/24/19 Anaerobic/Aerobic Culture, Resulted Pending 04/24/19 Anaerobic Culture Result 1 (SIXTO), Resulted Pending 04/24/19 Aerobic Culture, Resulted Pending 04/24/19 Aerobic Culture Result 1 (SIXTO), Resulted Pending 04/24/19 Gram Stain - Final, Resulted 04/24/19 Gram Stain Result 1 (SIXTO) - Final, Resulted 04/24/19 Gram Stain Result 2 (SIXTO) - Final, Resulted Review of Systems Constitutional: yes: weakness Ears/Nose/Throat: Yes: no symptom reported Eyes: Yes: no symptom reported Pulmonary: Yes no symptom reported Cardiovascular: Yes no symptom reported Gastrointestional: Yes: no symptom reported Genitourinary: Yes: no symptom reported Musculoskeletal: Yes: muscle stiffness Skin: Yes no symptom reported Psychiatric/Neurological: Yes: no symptom reported Endocrine: Yes: no symptom reported Physical Exam General Appearance: no apparent distress Respiratory: bilateral CTA Heart: S1S2 Abdomen: soft, bowel sounds present Genitourinary: bladder flat Extremities: pulses present Neurology: alert Assessment Assessment IMP ESRD ANEMIA DM II HTN FOOT WOUND PLAN ANTIBIOTICS HD TOMORROW CHAITANYA HILARIO MD April 27, 2019 11:20
--- NOTE | 2019-04-27 11:25 | PDOC ---
BRIEF OPERATIVE NOTE Date: April 27, 2019 Pre-Op Diagnosis Right foot wound with tarsal/metatarsal joint exposed, severe peripheral arterial disease Post-Op Diagnosis Same Procedure Performed Right below knee amputation Surgeon Sebastian Arteaga MD Healthcare Facility Administrator JAYDA Triplett Anesthesia Type: General Blood Loss 75mL Specimens Obtained Right lower leg Findings Severely calcified arteries, but good bleeding Complications None Operative Note See detailed op note AMELIA ALICIA April 27, 2019 11:25
[2019-04-27] MEDS ORDERED: HYDROmorphone 2 MG/ML VIAL IVP PRN (11:30)
--- NOTE | 2019-04-27 11:38 | OP ---
DATE OF SURGERY: 04/27/2019 PREOPERATIVE DIAGNOSES: Ischemic gangrene, right foot involving the tissues adjacent to and overlying the metatarsal tarsal joint. Tissue damage does not allow for limb salvage and primary below-knee amputation was recommended. The patient has underlying severe venous stasis disease and diabetes with peripheral vascular disease. FINDINGS: The patient has severely calcified tibial vessels. There are multiple superficial varicosities in the medial aspect of the leg at the amputation incision site. There was good bleeding at the skin margins. DESCRIPTION OF PROCEDURE: The patient was given general anesthetic, prepped and draped in a sterile fashion. Transverse incision was placed about 4 fingerbreadths below the tibial tuberosity. The skin was sharply incised. The subcutaneous tissues were divided with electrocautery. The tibia was exposed. The anterior compartment muscles were divided with electrocautery. The anterior tibial artery and vein were clamped, divided and ligated with 2-0 silk suture. The fibula was exposed. The fibula was transected with an oscillating saw. The posterior skin incision was completed. The tibia was transected with a reciprocating saw. The posterior muscle bellies were divided with an amputation knife. The posterior tibial and peroneal arteries and veins were individually clamped and ligated with 2-0 silk suture. The residual small vessels were controlled with ligatures and hemostasis was achieved. The remainder of hemostasis was achieved with electrocautery. A 7 mm flat Simone-Cowart drain was placed through a medial stab incision. The subcutaneous fascia was approximated with a running suture of 2-0 Vicryl. Skin carl approximated the wound margins. Sterile dressings were applied. The patient was moved from the operating room to recovery in satisfactory stable condition. ESTIMATED BLOOD LOSS: 75 mL. SPECIMEN: Right lower extremity. ADMINISTRATION DEAN: Zonia Armstrong provided critical assistance in exposure for vessel control and amputation closure. YA HELLER MD DR: GIAN/dianna JOB#: [id number] / [id number]
[2019-04-27] MEDS: fentaNYL PF VIAL 100 MCG/2 ML VIAL IV PRN ×2 (11:40→11:55)
--- NOTE | 2019-04-27 13:34 | NUR ---
pt returned from surgery at 1205 via bed in stable condition. pt is alert and oriented and on RA. pt has call light within reach. pt is rating his pain 7/10. dressing is CDI. will continue to monitor.
[2019-04-27] MEDS: HYDROmorphone 2 MG TABLET PO PRN ×2 (14:11→20:27)
[2019-04-27] MEDS: ATORVASTATIN CALCIUM 40 MG TABLET. PO SCH (21:39)
[2019-04-28] MEDS: HYDROmorphone 2 MG TABLET PO PRN ×3 (01:01→11:52)
[2019-04-28 03:25] VITALS: BP 139/59
[2019-04-28 03:54] LABS: BASO # 0.1 x10^3/uL (0.0-0.2); BASO % 1 % (0-3); EOS # 0.1 x10^3/uL (0.0-0.7); EOS % 1 % (0-3); HEMATOCRIT 33.4 % (39.0-53.0); HEMOGLOBIN 10.7 g/dL (13.0-17.5); LYMPH # 1.4 x10^3/uL (1.0-4.8); LYMPH % 11 % (24-48); MEAN CORPUSCULAR HEMOGLOBIN 28 pg (25-35); MEAN CORPUSCULAR HGB CONC 32 g/dL (31-37); MEAN CORPUSCULAR VOLUME 87 fL (79-100); MONO # 0.8 x10^3/uL (0.0-1.1); MONO % 6 % (0-9); NEUT # 10.3 x10^3uL (1.8-7.7); NEUT % 82 % (31-73); PLATELET COUNT 356 x10^3/uL (140-400); RED BLOOD COUNT 3.84 x10^6/uL (4.30-5.70); RED CELL DISTRIBUTION WIDTH 18.3 % (11.5-14.5); WHITE BLOOD COUNT 12.7 x10^3/uL (4.0-11.0)
[2019-04-28 04:04] LABS: CALCIUM 8.9 mg/dL (8.5-10.1); CREATININE 4.9 mg/dL (0.7-1.3); POTASSIUM 4.5 mmol/L (3.5-5.1)
[2019-04-28] MEDS: PIPERACILLIN/TAZOBACTAM 2.25 GM in IV NORMAL SALINE 50ML 50 ML IV SCH ×3 (06:04→22:56)
[2019-04-28 07:00] VITALS: BP 94/52
[2019-04-28] MEDS: METOCLOPRAMIDE 5 MG TABLET. PO SCH ×3 (07:30→16:30)
[2019-04-28] MEDS ORDERED: LIDOCAINE 1% PF 2 ML VIAL. ONE (07:56)
[2019-04-28] MEDS: INSULIN LISPRO 300 UNITS/3 ML INSULN.PEN. SQ SCH ×3 (08:00→17:00)
[2019-04-28] MEDS: SEVELAMER CARBONATE 800 MG TABLET. PO SCH ×3 (08:00→17:00)
--- NOTE | 2019-04-28 08:13 | NUR ---
pt left for dialysis at 0737
[2019-04-28] MEDS ORDERED: IV NORMAL SALINE 1000ML BAG 1,000 ML IV PRN ×2 (08:25)
[2019-04-28] MEDS ORDERED: diphenhydrAMINE 50 MG/ML VIAL IV PRN ×2 (08:30)
[2019-04-28] MEDS ORDERED: DIALYSIS PATIENT. MC PRN (08:30)
[2019-04-28] MEDS: ACETAMINOPHEN 325 MG TABLET. PO SCH ×4 (09:01→21:14)
--- NOTE | 2019-04-28 11:12 | NUR ---
FABRIZIO following for discharge planning. Discussed with RN, pt having dialysis today. Pt likely here through the weekend. Plan is back to [facility] upon discharge.
--- NOTE | 2019-04-28 11:31 | PDOC ---
Infectious Disease Note Subjective: Subjective Pt underwent surgery yesterday has postop site pain undergoing dialysis no f/c/n/v/d ROS: ROS Negative except for above. Vital Signs: Vital Signs Vital Signs Date Time Temp Pulse Resp B/P (MAP) Pulse Ox O2 Delivery O2 Flow Rate FiO2 04/28/19 07:30 Room Air 04/28/19 07:00 97.9 63 18 94/52 (66) 97 97.9 04/27/19 11:45 8 Physical Exam: PHYSICAL EXAM GENERAL: Alert, oriented, awake male lying in bed comfortably, in no acute distress, pleasant, cooperative. HEENT: Normocephalic, atraumatic, anicteric. No thrush. Oral mucosa moist. NECK: Supple. No JVD. No thyromegaly. LUNGS: Clear bilaterally. No wheezing. HEART: S1, S2. No gallops, or murmurs, or rubs. ABDOMEN: Soft, obese. Bowel sounds present, nontender, nondistended. EXTREMITIES: Right le dressing intact, dry, drain in place NEUROLOGIC: Alert, oriented, awake, moves all 4 extremities. PSYCHIATRIC: Appropriate mood and affect. DERMATOLOGIC: Warm, dry. No generalized rash. Medications: Inpatient Meds: Current Medications Medications (Trade) Dose Ordered Sig/Bhavesh Start Time Stop Time Status Last Admin Dose Admin Acetaminophen (Tylenol) 325 mg QID 04/24/19 13:30 04/28/19 09:01 325 MG Allopurinol (Zyloprim) 100 mg DAILY 04/25/19 09:00 UNV Aspirin (Onesimo Aspirin) 81 mg DAILYWBKFT 04/25/19 08:00 UNV Aspirin (Ecotrin) 81 mg DAILYWBKFT 04/24/19 13:30 04/25/19 08:48 81 MG Atorvastatin Calcium (Lipitor) 40 mg QHS 04/24/19 21:00 UNV Bacitracin 70817 unit/Sodium Chloride 500 ml @ 500 mls/hr 1X ONCE 04/26/19 06:00 04/26/19 06:59 Cancel Clopidogrel Bisulfate (Plavix) 75 mg DAILYWBKFT 04/25/19 08:00 UNV Cyanocobalamin (Vitamin B-12) 1,000 mcg DAILY 04/25/19 09:00 UNV Darbepoetin Reinaldo (Aranesp) 60 mcg WEEKLYHS 04/25/19 21:00 04/25/19 22:34 60 MCG Dexamethasone Sodium Phosphate (Decadron) 4 mg STK-MED ONCE 04/27/19 09:48 04/27/19 09:49 DC Dextrose (Dextrose 50%-Water Syringe) 12.5 gm PRN Q15MIN PRN 04/24/19 12:15 Diphenhydramine HCl (Benadryl) 25 mg 1X PRN PRN 04/28/19 08:30 04/29/19 08:29 Ephedrine Sulfate (ePHEDrine PF IN SALINE SYRINGE) 50 mg STK-MED ONCE 04/27/19 09:53 04/27/19 09:54 DC Famotidine (Pepcid Vial) 20 mg STK-MED ONCE 04/27/19 08:51 04/27/19 08:52 DC Fentanyl Citrate (Fentanyl 2ml Vial) 100 mcg STK-MED ONCE 04/27/19 09:16 04/27/19 09:17 DC Hydromorphone HCl (Dilaudid) 2 mg PRN Q4HRS PRN 04/27/19 11:30 04/28/19 06:10 2 MG Info (PHARMACY MONITORING -- do not chart) 1 each PRN DAILY PRN 04/28/19 08:30 Insulin Human Lispro (HumaLOG) 0-6 UNITS BG 300-39... TIDWMEALS 04/24/19 17:00 UNV Lactobacillus Rhamnosus (Culturelle) 1 cap BID 04/24/19 21:00 UNV Lidocaine HCl (Lidocaine Pf 2% Vial) 5 ml STK-MED ONCE 04/27/19 08:51 04/27/19 08:52 DC Lidocaine HCl (Xylocaine 1% Pf 30ml Vial) 60 ml STK-MED ONCE 04/27/19 10:01 04/27/19 10:02 Cancel Lidocaine HCl (Xylocaine-Mpf 1% 2ml Vial) 2 ml STK-MED ONCE 04/28/19 07:56 04/28/19 07:57 DC Lidocaine HCl 48 ml/Sodium Bicarbonate 12 meq/Miscellaneous 60 ml @ 60 mls/hr 1X ONCE 04/27/19 06:00 04/27/19 06:59 DC Linezolid/Dextrose 300 ml @ 300 mls/hr Q12HR 04/24/19 13:30 04/27/19 21:38 300 MLS/HR Magnesium Hydroxide (Milk Of Magnesia) 2,400 mg PRN DAILY PRN 04/24/19 12:15 UNV Metoclopramide HCl (Reglan) 5 mg TIDBFRMEAL 04/24/19 16:30 04/27/19 18:08 5 MG Morphine Sulfate (Morphine Sulfate) 1 mg PRN Q10MIN PRN 04/27/19 07:00 04/28/19 06:59 DC Ondansetron HCl (Zofran Odt) 4 mg PRN Q6HRS PRN 04/24/19 12:15 UNV Ondansetron HCl (Zofran) 4 mg STK-MED ONCE 04/27/19 08:51 04/27/19 08:52 DC Pantoprazole Sodium (Protonix) 20 mg DAILYAC 04/25/19 07:30 UNV Piperacillin Sod/ Tazobactam Sod 2.25 gm/Sodium Chloride 50 ml @ 100 mls/hr Q8HRS 04/24/19 14:00 UNV Prochlorperazine Edisylate (Compazine) 5 mg PACU PRN PRN 04/27/19 07:00 04/28/19 06:59 DC Propofol 20 ml @ As Directed STK-MED ONCE 04/27/19 08:51 04/27/19 08:52 DC Ringer's Solution 1,000 ml @ 30 mls/hr Q24H 04/26/19 07:00 04/26/19 18:59 UNV Rocuronium [place] (Zemuron) 50 mg STK-MED ONCE 04/27/19 10:10 04/27/19 10:11 DC Sevelamer Carbonate (Renvela) 800 mg TIDWMEALS 04/24/19 17:00 UNV Sevoflurane (Ultane) 60 ml STK-MED ONCE 04/27/19 11:04 04/27/19 11:05 DC Sodium Chloride 1,000 ml @ 400 mls/hr Q2H30M PRN 04/28/19 08:25 04/28/19 20:24 Tramadol HCl (Ultram) 25 mg PRN Q6HRS PRN 04/24/19 12:15 UNV Vitamin B Complex/ Vitamin C (Krista-Beatriz) 1 tab DAILY 04/24/19 13:30 04/25/19 08:48 1 TAB Vitamin D (Vitamin D3) 1,000 unit DAILY 04/25/19 09:00 UNV Labs: Lab Laboratory Tests Test 04/27/19 11:39 04/27/19 16:44 04/28/19 03:25 04/28/19 07:35 Glucose (Fingerstick) 132 mg/dL (70-99) 157 mg/dL (70-99) 127 mg/dL (70-99) White Blood Count 12.7 x10^3/uL (4.0-11.0) Red Blood Count 3.84 x10^6/uL (4.30-5.70) Hemoglobin 10.7 g/dL (13.0-17.5) Hematocrit 33.4 % (39.0-53.0) Mean Corpuscular Volume 87 fL (79-100) Mean Corpuscular Hemoglobin 28 pg (25-35) Mean Corpuscular Hemoglobin Concent 32 g/dL (31-37) Red Cell Distribution Width 18.3 % (11.5-14.5) Platelet Count 356 x10^3/uL (140-400) Neutrophils (%) (Auto) 82 % (31-73) Lymphocytes (%) (Auto) 11 % (24-48) Monocytes (%) (Auto) 6 % (0-9) Eosinophils (%) (Auto) 1 % (0-3) Basophils (%) (Auto) 1 % (0-3) Neutrophils # (Auto) 10.3 x10^3uL (1.8-7.7) Lymphocytes # (Auto) 1.4 x10^3/uL (1.0-4.8) Monocytes # (Auto) 0.8 x10^3/uL (0.0-1.1) Eosinophils # (Auto) 0.1 x10^3/uL (0.0-0.7) Basophils # (Auto) 0.1 x10^3/uL (0.0-0.2) Sodium Level 140 mmol/L (136-145) Potassium Level 4.5 mmol/L (3.5-5.1) Chloride Level 101 mmol/L (98-107) Carbon Dioxide Level 28 mmol/L (21-32) Anion Gap 11 (6-14) Blood Urea Nitrogen 29 mg/dL (8-26) Creatinine 4.9 mg/dL (0.7-1.3) Estimated GFR (Cockcroft-Gault) 14.0 Glucose Level 175 mg/dL (70-99) Calcium Level 8.9 mg/dL (8.5-10.1) Micro RUN DATE: 04/26/19 PAGE 1 RUN TIME: 1909 [facility] [address] [place] [address] Farhat Mccurdy M.D., Director Agricultural Services --- PATIENT: NARENDRA MACIAS ACCT: [id number] LOC: [address] [place] [address] U: [id number] AGE/SX: 78/M ROOM: [facility] RE04/24/[address]: KIMI TIDWELL MD : 1940 BED: 1 DIS: STATUS: ADM IN TLOC: SPEC #: [id number] CHENTE: 04/24/19-1200 STATUS: RES REQ #: [id number] RECD: 04/24/19-[address]: KIMI TIDWELL MD SOURCE: FOOT ENTR: 04/24/19-[address]: YA HELLER MD SPDC: LARISA STYLES MD, SAMIR R MD NAIR, VENU S MD ORDERED: ANAER/AEROB/GS --------- Procedure Result ANAEROBIC-AEROBIC CULTURE PENDING ANAEROBIC RES 1 PENDING AEROBIC CULT PENDING AEROBIC RES 1 PENDING GRAM STAIN Final Final report GRAM STAIN RES 1 Final Comment No white blood cells seen. 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
--- NOTE | 2019-04-28 11:37 | PDOC ---
Renal-Progress Notes Subjective Notes Notes SOME PAIN History of Present Illness Hx of present illness STABLE Vitals Vitals Vital Signs Date Time Temp Pulse Resp B/P (MAP) Pulse Ox O2 Delivery O2 Flow Rate FiO2 04/28/19 07:30 Room Air 04/28/19 07:00 97.9 63 18 94/52 (66) 97 97.9 04/27/19 11:45 8 Weight Weight [ ] I.O. Intake and Output Intake and Output 04/28/19 07:00 Intake Total 570 ml Output Total 165 ml Balance 405 ml Intake Oral 520 ml IV Total 50 ml Output Urine Total 0 ml Drainage Total 90 ml Estimated Blood Loss 75 ml Labs Labs Laboratory Tests Test 04/27/19 11:39 04/27/19 16:44 04/28/19 03:25 04/28/19 07:35 Glucose (Fingerstick) 132 mg/dL (70-99) 157 mg/dL (70-99) 127 mg/dL (70-99) White Blood Count 12.7 x10^3/uL (4.0-11.0) Red Blood Count 3.84 x10^6/uL (4.30-5.70) Hemoglobin 10.7 g/dL (13.0-17.5) Hematocrit 33.4 % (39.0-53.0) Mean Corpuscular Volume 87 fL (79-100) Mean Corpuscular Hemoglobin 28 pg (25-35) Mean Corpuscular Hemoglobin Concent 32 g/dL (31-37) Red Cell Distribution Width 18.3 % (11.5-14.5) Platelet Count 356 x10^3/uL (140-400) Neutrophils (%) (Auto) 82 % (31-73) Lymphocytes (%) (Auto) 11 % (24-48) Monocytes (%) (Auto) 6 % (0-9) Eosinophils (%) (Auto) 1 % (0-3) Basophils (%) (Auto) 1 % (0-3) Neutrophils # (Auto) 10.3 x10^3uL (1.8-7.7) Lymphocytes # (Auto) 1.4 x10^3/uL (1.0-4.8) Monocytes # (Auto) 0.8 x10^3/uL (0.0-1.1) Eosinophils # (Auto) 0.1 x10^3/uL (0.0-0.7) Basophils # (Auto) 0.1 x10^3/uL (0.0-0.2) Sodium Level 140 mmol/L (136-145) Potassium Level 4.5 mmol/L (3.5-5.1) Chloride Level 101 mmol/L (98-107) Carbon Dioxide Level 28 mmol/L (21-32) Anion Gap 11 (6-14) Blood Urea Nitrogen 29 mg/dL (8-26) Creatinine 4.9 mg/dL (0.7-1.3) Estimated GFR (Cockcroft-Gault) 14.0 Glucose Level 175 mg/dL (70-99) Calcium Level 8.9 mg/dL (8.5-10.1) Micro Micro Microbiology 04/24/19 Anaerobic/Aerobic Culture, Resulted Pending 04/24/19 Anaerobic Culture Result 1 (SIXTO), Resulted Pending 04/24/19 Aerobic Culture - Final, Resulted 04/24/19 Aerobic Culture Result 1 (SIXTO) - Final, Resulted 04/24/19 Aerobic Culture Result 2 (SIXTO) - Final, Resulted 04/24/19 Antimicrobic Susceptibility - Final, Resulted 04/24/19 Gram Stain - Final, Resulted 04/24/19 Gram Stain Result 1 (SIXTO) - Final, Resulted 04/24/19 Gram Stain Result 2 (SIXTO) - Final, Resulted Review of Systems Constitutional: yes: weakness Ears/Nose/Throat: Yes: no symptom reported Eyes: Yes: no symptom reported Pulmonary: Yes no symptom reported Cardiovascular: Yes no symptom reported Gastrointestional: Yes: no symptom reported Genitourinary: Yes: no symptom reported Musculoskeletal: Yes: muscle stiffness Skin: Yes no symptom reported Psychiatric/Neurological: Yes: no symptom reported Endocrine: Yes: no symptom reported Physical Exam General Appearance: no apparent distress Respiratory: bilateral CTA Heart: S1S2 Abdomen: soft, bowel sounds present Genitourinary: bladder flat Extremities: pulses present Neurology: alert Assessment Assessment IMP ESRD ANEMIA DM II HTN FOOT WOUND PLAN ANTIBIOTICS HD TODAY UF TO CHAITANYA GONZALEZ MD April 28, 2019 11:37
[2019-04-28] MEDS: FOLIC/VIT B COMP W-C (RENAL) TABLET. PO SCH (11:51)
[2019-04-28] MEDS: PANTOPRAZOLE 40 MG TABLET.DR. PO SCH (11:51)
[2019-04-28] MEDS: CHOLECALCIFEROL (VITAMIN D3) 1,000 UNIT TABLET PO SCH (11:51)
[2019-04-28] MEDS: ALLOPURINOL 100 MG TABLET. PO SCH (11:51)
[2019-04-28] MEDS: CYANOCOBALAMIN (VITAMIN B-12) 1,000 MCG TABLET. PO SCH (11:51)
[2019-04-28] MEDS: LACTOBACILLUS RHAMNOSUS GG 1 CAPSULE. PO SCH ×2 (11:51→21:13)
[2019-04-28] MEDS: ASPIRIN ENTERIC COATED 81 MG TABLET.DR. PO SCH (11:51)
[2019-04-28] MEDS: CLOPIDOGREL BISULFATE 75 MG TABLET PO SCH (11:51)
--- NOTE | 2019-04-28 12:56 | NUR ---
pt returned from dialysis is stable condition. pt is rating his pain 09/07. states he is hungry and ready for lunch. will continue to monitor. Addendum: 04/28/19 at 1304 by CASSANDRA HARPER RN RN pt returned to floor from dialysis at 1145
--- NOTE | 2019-04-28 13:08 | PDOC ---
PROGRESS NOTES Subjective Subjective seen during hemodialysis. has phantom limb pain. lab reviewed. Objective Objective Vital Signs Date Time Temp Pulse Resp B/P (MAP) Pulse Ox O2 Delivery O2 Flow Rate FiO2 04/28/19 12:55 Room Air 04/28/19 07:00 97.9 63 18 94/52 (66) 97 97.9 04/27/19 11:45 8 Intake and Output 04/28/19 07:00 Intake Total 570 ml Output Total 165 ml Balance 405 ml Intake Oral 520 ml IV Total 50 ml Output Urine Total 0 ml Drainage Total 90 ml Estimated Blood Loss 75 ml Physical Exam Abdomen: Soft, Other (obese) Heart: Normal S1, Normal S2 Extremities: No edema, Other (right BKA) General: Alert HEENT: Atraumatic Lungs: Clear to auscultation Neuro: Normal speech Psych/Mental Status: Mental status NL Skin: No rashes Assessment Assessment 1. 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 History of right transmetatarsal amputation with skin graft. 3. End-stage renal disease on hemodialysis. 4. Obstructive sleep apnea. 5. Diabetes mellitus type 2 with peripheral neuropathy. 6. Peripheral arterial disease. 7. Anemia of chronic disease. 8. Hyperlipidemia. 9. Morbid obesity. left heel wound phantom limb pain Plan Plan of Care hemodialysis today continue zyvox and zosyn tylenol and tramadol prn avoid narcotics which causes a toxic encephalopathy Comment Review of Relevant I have reviewed the following items simeon (where applicable) has been applied. Labs Laboratory Tests Test 04/26/19 16:31 04/26/19 20:50 04/27/19 02:20 04/27/19 07:44 Glucose (Fingerstick) 117 mg/dL (70-99) 120 mg/dL (70-99) 91 mg/dL (70-99) Hemoglobin 11.2 g/dL (13.0-17.5) Hematocrit 35.7 % (39.0-53.0) Mean Corpuscular Hemoglobin Concent 31 g/dL (31-37) Test 04/27/19 11:39 04/27/19 16:44 04/28/19 03:25 04/28/19 07:35 Glucose (Fingerstick) 132 mg/dL (70-99) 157 mg/dL (70-99) 127 mg/dL (70-99) White Blood Count 12.7 x10^3/uL (4.0-11.0) Red Blood Count 3.84 x10^6/uL (4.30-5.70) Hemoglobin 10.7 g/dL (13.0-17.5) Hematocrit 33.4 % (39.0-53.0) Mean Corpuscular Volume 87 fL (79-100) Mean Corpuscular Hemoglobin 28 pg (25-35) Mean Corpuscular Hemoglobin Concent 32 g/dL (31-37) Red Cell Distribution Width 18.3 % (11.5-14.5) Platelet Count 356 x10^3/uL (140-400) Neutrophils (%) (Auto) 82 % (31-73) Lymphocytes (%) (Auto) 11 % (24-48) Monocytes (%) (Auto) 6 % (0-9) Eosinophils (%) (Auto) 1 % (0-3) Basophils (%) (Auto) 1 % (0-3) Neutrophils # (Auto) 10.3 x10^3uL (1.8-7.7) Lymphocytes # (Auto) 1.4 x10^3/uL (1.0-4.8) Monocytes # (Auto) 0.8 x10^3/uL (0.0-1.1) Eosinophils # (Auto) 0.1 x10^3/uL (0.0-0.7) Basophils # (Auto) 0.1 x10^3/uL (0.0-0.2) Sodium Level 140 mmol/L (136-145) Potassium Level 4.5 mmol/L (3.5-5.1) Chloride Level 101 mmol/L (98-107) Carbon Dioxide Level 28 mmol/L (21-32) Anion Gap 11 (6-14) Blood Urea Nitrogen 29 mg/dL (8-26) Creatinine 4.9 mg/dL (0.7-1.3) Estimated GFR (Cockcroft-Gault) 14.0 Glucose Level 175 mg/dL (70-99) Calcium Level 8.9 mg/dL (8.5-10.1) Test 04/28/19 11:59 Glucose (Fingerstick) 111 mg/dL (70-99) Laboratory Tests Test 04/27/19 16:44 04/28/19 03:25 04/28/19 07:35 04/28/19 11:59 Glucose (Fingerstick) 157 mg/dL (70-99) 127 mg/dL (70-99) 111 mg/dL (70-99) White Blood Count 12.7 x10^3/uL (4.0-11.0) Red Blood Count 3.84 x10^6/uL (4.30-5.70) Hemoglobin 10.7 g/dL (13.0-17.5) Hematocrit 33.4 % (39.0-53.0) Mean Corpuscular Volume 87 fL (79-100) Mean Corpuscular Hemoglobin 28 pg (25-35) Mean Corpuscular Hemoglobin Concent 32 g/dL (31-37) Red Cell Distribution Width 18.3 % (11.5-14.5) Platelet Count 356 x10^3/uL (140-400) Neutrophils (%) (Auto) 82 % (31-73) Lymphocytes (%) (Auto) 11 % (24-48) Monocytes (%) (Auto) 6 % (0-9) Eosinophils (%) (Auto) 1 % (0-3) Basophils (%) (Auto) 1 % (0-3) Neutrophils # (Auto) 10.3 x10^3uL (1.8-7.7) Lymphocytes # (Auto) 1.4 x10^3/uL (1.0-4.8) Monocytes # (Auto) 0.8 x10^3/uL (0.0-1.1) Eosinophils # (Auto) 0.1 x10^3/uL (0.0-0.7) Basophils # (Auto) 0.1 x10^3/uL (0.0-0.2) Sodium Level 140 mmol/L (136-145) Potassium Level 4.5 mmol/L (3.5-5.1) Chloride Level 101 mmol/L (98-107) Carbon Dioxide Level 28 mmol/L (21-32) Anion Gap 11 (6-14) Blood Urea Nitrogen 29 mg/dL (8-26) Creatinine 4.9 mg/dL (0.7-1.3) Estimated GFR (Cockcroft-Gault) 14.0 Glucose Level 175 mg/dL (70-99) Calcium Level 8.9 mg/dL (8.5-10.1) Microbiology 04/24/19 Anaerobic/Aerobic Culture, Resulted Pending 04/24/19 Anaerobic Culture Result 1 (SIXTO), Resulted Pending 04/24/19 Aerobic Culture - Final, Resulted 04/24/19 Aerobic Culture Result 1 (SIXTO) - Final, Resulted 04/24/19 Aerobic Culture Result 2 (SIXTO) - Final, Resulted 04/24/19 Antimicrobic Susceptibility - Final, Resulted 04/24/19 Gram Stain - Final, Resulted 04/24/19 Gram Stain Result 1 (SIXTO) - Final, Resulted 04/24/19 Gram Stain Result 2 (SIXTO) - Final, Resulted Medications Current Medications Linezolid/Dextrose 300 ml @ 300 mls/hr Q12HR IV Last administered on 04/28/19at 11:56; Start 04/24/19 at 13:30 Piperacillin Sod/ Tazobactam Sod 2.25 gm/Sodium Chloride 50 ml @ 100 mls/hr Q8HRS IV Last administered on 04/28/19at 06:04; Start 04/24/19 at 14:00 Magnesium Hydroxide (Milk Of Magnesia) 2,400 mg PRN DAILY PRN PO CONSTIPATION; Start 04/24/19 at 12:15 Ondansetron HCl (Zofran Odt) 4 mg PRN Q6HRS PRN PO NAUSEA/VOMITING, 1st CHOICE; Start 04/24/19 at 12:15 Tramadol HCl (Ultram) 25 mg PRN Q6HRS PRN PO MODERATE PAIN Last administered on 04/26/19at 21:34; Start 04/24/19 at 12:15 Aspirin (Ecotrin) 81 mg DAILYWBKFT PO Last administered on 04/28/19 11:51; Start 04/24/19 at 13:30 Sevelamer Carbonate (Renvela) 800 mg TIDWMEALS PO Last administered on 04/28/19 11:51; Start 04/24/19 at 13:30 Cyanocobalamin (Vitamin B-12) 1,000 mcg DAILY PO Last administered on 04/28/19 11:51; Start 04/24/19 at 13:30 Allopurinol (Zyloprim) 100 mg DAILY PO Last administered on 04/28/19 11:51; Start 04/24/19 at 13:30 Atorvastatin Calcium (Lipitor) 40 mg QHS PO Last administered on 04/27/19 21:39; Start 04/24/19 at 21:00 Acetaminophen (Tylenol) 325 mg PRN QID PRN PO MILD PAIN / TEMP; Start 04/24/19 at 12:15 Clopidogrel Bisulfate (Plavix) 75 mg DAILYWBKFT PO Last administered on 04/28/19 11:51; Start 04/24/19 at 13:30 Metoclopramide HCl (Reglan) 5 mg PRN BFRMEALHC PRN PO NAUSEA/VOMITING, 2nd CHOICE; Start 04/24/19 at 12:15 Vitamin D (Vitamin D3) 1,000 unit DAILY PO Last administered on 04/28/19 11:51; Start 04/24/19 at 13:30 Pantoprazole Sodium (Protonix) 40 mg DAILYAC PO Last administered on 04/28/19 11:51; Start 04/24/19 at 13:30 Insulin Human Lispro (HumaLOG) 0-5 UNITS TIDWMEALS SQ ; Start 04/24/19 at 17:00 Dextrose (Dextrose 50%-Water Syringe) 12.5 gm PRN Q15MIN PRN IV SEE COMMENTS; Start 04/24/19 at 12:15 Lactobacillus Rhamnosus (Culturelle) 1 cap BID PO Last administered on 04/28/19 11:51; Start 04/24/19 at 13:30 Vitamin B Complex/ Vitamin C (Krista-Beatriz) 1 tab DAILY PO Last administered on 04/28/19 11:51; Start 04/24/19 at 13:30 Piperacillin Sod/ Tazobactam Sod 2.25 gm/Sodium Chloride 50 ml @ 100 mls/hr Q8HRS IV ; Start 04/24/19 at 14:00; Status UNV Clopidogrel Bisulfate (Plavix) 75 mg DAILYWBKFT PO ; Start 04/25/19 at 08:00; Status UNV Metoclopramide HCl (Reglan) 5 mg TIDBFRMEAL PO Last administered on 04/28/19 11:51; Start 04/24/19 at 16:30 Vitamin D (Vitamin D3) 1,000 unit DAILY PO ; Start 04/25/19 at 09:00; Status UNV Pantoprazole Sodium (Protonix) 20 mg DAILYAC PO ; Start 04/25/19 at 07:30; Status UNV Aspirin (Onesimo Aspirin) 81 mg DAILYWBKFT PO ; Start 04/25/19 at 08:00; Status UNV Sevelamer Carbonate (Renvela) 800 mg TIDWMEALS PO ; Start 04/24/19 at 17:00; Status UNV Cyanocobalamin (Vitamin B-12) 1,000 mcg DAILY PO ; Start 04/25/19 at 09:00; Status UNV Lactobacillus Rhamnosus (Culturelle) 1 cap BID PO ; Start 04/24/19 at 21:00; Status UNV Allopurinol (Zyloprim) 100 mg DAILY PO ; Start 04/25/19 at 09:00; Status UNV Atorvastatin Calcium (Lipitor) 40 mg QHS PO ; Start 04/24/19 at 21:00; Status UNV Acetaminophen (Tylenol) 325 mg PRN Q6HRS PRN PO MILD PAIN / TEMP; Start 04/24/19 at 12:15; Status UNV Acetaminophen (Tylenol) 325 mg QID PO Last administered on 04/28/19at 11:52; Start 04/24/19 at 13:30 Ondansetron HCl (Zofran Odt) 4 mg PRN Q6HRS PRN PO NAUSEA/VOMITING; Start 04/24/19 at 12:15; Status UNV Tramadol HCl (Ultram) 25 mg PRN Q6HRS PRN PO PAIN; Start 04/24/19 at 12:15; Status UNV Diphenhydramine HCl (Benadryl) 25 mg PRN Q6HRS PRN PO ITCHING; Start 04/24/19 at 12:15 Magnesium Hydroxide (Milk Of Magnesia) 2,400 mg PRN DAILY PRN PO CONSTIPATION; Start 04/24/19 at 12:15; Status UNV Insulin Human Lispro (HumaLOG) 0-6 UNITS BG 300-39... TIDWMEALS SQ ; Start 04/24/19 at 17:00; Status UNV Sodium Chloride 1,000 ml @ 1,000 mls/hr Q1H PRN IV hypotension; Start 04/24/19 at 17:00; Stop 04/24/19 at 23:00; Status DC Sodium Chloride 1,000 ml @ 400 mls/hr Q2H30M PRN IV PATENCY; Start 04/24/19 at 17:00; Stop 04/24/19 at 23:00; Status DC Info (PHARMACY MONITORING -- do not chart) 1 each PRN DAILY PRN MC SEE COMMENTS; Start 04/24/19 at 17:15; Status UNV Info (PHARMACY MONITORING -- do not chart) 1 each PRN DAILY PRN MC SEE COMMENTS ; Start 04/24/19 at 17:15; Stop 04/26/19 at 11:06; Status DC Darbepoetin Reinaldo (Aranesp) 60 mcg WEEKLYHS SQ Last administered on 04/25/19at 22:34; Start 04/25/19 at 21:00 Bacitracin 89204 unit/Sodium Chloride 500 ml @ 500 mls/hr 1X ONCE IRR ; Start 04/26/19 at 06:00; Stop 04/26/19 at 06:59; Status Cancel Ondansetron HCl (Zofran) 4 mg PRN Q6HRS PRN IV NAUSEA/VOMITING; Start 04/26/19 at 07:00; Stop 04/27/19 at 06:59; Status DC Morphine Sulfate (Morphine Sulfate) 1 mg PRN Q10MIN PRN IV SEVERE PAIN 7-10; Start 04/26/19 at 07:00; Stop 04/27/19 at 06:59; Status DC Ringer's Solution 1,000 ml @ 30 mls/hr Q24H IV ; Start 04/26/19 at 07:00; Stop 04/26/19 at 18:59; Status DC Hydromorphone HCl (Dilaudid) 0.5 mg PRN Q10MIN PRN IV SEV PAIN, Second choice; Start 04/26/19 at 07:00; Stop 04/27/19 at 06:59; Status DC Ondansetron HCl (Zofran) 4 mg PRN Q6HRS PRN IV NAUSEA/VOMITING; Start 04/26/19 at 07:00; Stop 04/27/19 at 06:59; Status UNV Morphine Sulfate (Morphine Sulfate) 1 mg PRN Q10MIN PRN IV SEVERE PAIN 7-10; Start 04/26/19 at 07:00; Stop 04/27/19 at 06:59; Status UNV Ringer's Solution 1,000 ml @ 30 mls/hr Q24H IV ; Start 04/26/19 at 07:00; Stop 04/26/19 at 18:59; Status UNV Hydromorphone HCl (Dilaudid) 0.5 mg PRN Q10MIN PRN IV SEV PAIN, Second choice; Start 04/26/19 at 07:00; Stop 04/27/19 at 06:59; Status UNV Sodium Chloride 1,000 ml @ 1,000 mls/hr Q1H PRN IV hypotension; Start 04/26/19 at 07:17; Stop 04/26/19 at 13:16; Status DC Sodium Chloride 1,000 ml @ 400 mls/hr Q2H30M PRN IV PATENCY; Start 04/26/19 at 07:17; Stop 04/26/19 at 19:16; Status DC Info (PHARMACY MONITORING -- do not chart) 1 each PRN DAILY PRN MC SEE LORENA TS; Start 04/26/19 at 07:30; Status UNV Info (PHARMACY MONITORING -- do not chart) 1 each PRN DAILY PRN MC SEE COMMENTS; Start 04/26/19 at 07:30 Lidocaine HCl 48 ml/Sodium Bicarbonate 12 meq/Miscellaneous 60 ml @ 60 mls/hr 1X ONCE ID ; Start 04/27/19 at 06:00; Stop 04/27/19 at 06:59; Status DC Ondansetron HCl (Zofran) 4 mg PRN Q6HRS PRN IV NAUSEA/VOMITING; Start 04/27/19 at 07:00; Stop 04/28/19 at 06:59; Status DC Fentanyl Citrate (Fentanyl 2ml Vial) 25 mcg PRN Q5MIN PRN IV MILD PAIN 1-3; Start 04/27/19 at 07:00; Stop 04/28/19 at 06:59; Status DC Fentanyl Citrate (Fentanyl 2ml Vial) 50 mcg PRN Q5MIN PRN IV MODERATE TO SEVERE PAIN Last administered on 04/27/19at 11:55; Start 04/27/19 at 07:00; Stop 04/28/19 at 06:59; Status DC Morphine Sulfate (Morphine Sulfate) 1 mg PRN Q10MIN PRN IV SEVERE PAIN 7-10; Start 04/27/19 at 07:00; Stop 04/28/19 at 06:59; Status DC Hydromorphone HCl (Dilaudid) 0.5 mg PRN Q10MIN PRN IV SEV PAIN, Second choice; Start 04/27/19 at 07:00; Stop 04/28/19 at 06:59; Status DC Prochlorperazine Edisylate (Compazine) 5 mg PACU PRN PRN IV NAUSEA, MRX1; Start 04/27/19 at 07:00; Stop 04/28/19 at 06:59; Status DC Sodium Chloride 1,000 ml @ 0 mls/hr Q0M IV ; Start 04/27/19 at 07:00 Propofol 20 ml @ As Directed STK-MED ONCE IV ; Start 04/27/19 at 08:51; Stop 04/27/19 at 08:52; Status DC Famotidine (Pepcid Vial) 20 mg STK-MED ONCE .ROUTE ; Start 04/27/19 at 08:51; Stop 04/27/19 at 08:52; Status DC Lidocaine HCl (Lidocaine Pf 2% Vial) 5 ml STK-MED ONCE .ROUTE ; Start 04/27/19 at 08:51; Stop 04/27/19 at 08:52; Status DC Ondansetron HCl (Zofran) 4 mg STK-MED ONCE .ROUTE ; Start 04/27/19 at 08:51; Stop 04/27/19 at 08:52; Status DC Fentanyl Citrate (Fentanyl 2ml Vial) 100 mcg STK-MED ONCE .ROUTE ; Start 04/27/19 at 09:16; Stop 04/27/19 at 09:17; Status DC Dexamethasone Sodium Phosphate (Decadron) 4 mg STK-MED ONCE .ROUTE ; Start 04/27/19 at 09:48; Stop 04/27/19 at 09:49; Status DC Ephedrine Sulfate (ePHEDrine PF IN SALINE SYRINGE) 50 mg STK-MED ONCE IV ; Start 04/27/19 at 09:53; Stop 04/27/19 at 09:54; Status DC Rocuronium [place] (Zemuron) 50 mg STK-MED ONCE .ROUTE ; Start 04/27/19 at 10:10; Stop 04/27/19 at 10:11; Status DC Lidocaine HCl (Xylocaine 1% Pf 30ml Vial) 60 ml STK-MED ONCE INJ ; Start 04/27/19 at 10:01; Stop 04/27/19 at 10:02; Status Cancel Sevoflurane (Ultane) 60 ml STK-MED ONCE IH ; Start 04/27/19 at 11:04; Stop 04/27/19 at 11:05; Status DC Hydromorphone HCl (Dilaudid) 0.2 mg PRN Q4HRS PRN IVP PAIN; Start 04/27/19 at 11:30 Hydromorphone HCl (Dilaudid) 2 mg PRN Q4HRS PRN PO SEVERE PAIN Last administered on 04/28/19at 11:52; Start 04/27/19 at 11:30 Lidocaine HCl (Xylocaine-Mpf 1% 2ml Vial) 2 ml STK-MED ONCE .ROUTE ; Start 04/28/19 at 07:56; Stop 04/28/19 at 07:57; Status DC Sodium Chloride 1,000 ml @ 1,000 mls/hr Q1H PRN IV hypotension; Start 04/28/19 at 08:25; Stop 04/28/19 at 14:24 Diphenhydramine HCl (Benadryl) 25 mg 1X PRN PRN IV ITCHING; Start 04/28/19 at 08:30; Stop 04/29/19 at 08:29 Diphenhydramine HCl (Benadryl) 25 mg 1X PRN PRN IV ITCHING; Start 04/28/19 at 08:30; Stop 04/29/19 at 08:29 Sodium Chloride 1,000 ml @ 400 mls/hr Q2H30M PRN IV PATENCY; Start 04/28/19 at 08:25; Stop 04/28/19 at 20:24 Info (PHARMACY MONITORING -- do not chart) 1 each PRN DAILY PRN MC SEE COMMENTS; Start 04/28/19 at 08:30 Active Scripts Active Cephalexin 250 Mg Capsule 500 Mg PO BID 14 Days Ondansetron Odt (Ondansetron) 4 Mg Tab.rapdis 4 Mg PO Q6HRS PRN Metoclopramide Hcl 5 Mg Tablet 5 Mg PO TIDACHC Humalog (Insulin Lispro) 100 Unit/1 Ml Insuln.pen 0 Units SQ TIDWMEALS 30 Days BG 150-199= 1 units 200-299= 2 units 300-399= 4 units 400-499= 6 units ac tid sliding scale Reported Zofran (Ondansetron Hcl) 4 Mg Tablet 1 Tab PO Q6HRS Vitamin D3 (Cholecalciferol (Vitamin D3)) 1,000 Unit Tablet 1 Tab PO DAILY Vitamin B-12 (Cyanocobalamin (Vitamin B-12)) 1,000 Mcg Tablet 1 Tab PO DAILY Tylenol (Acetaminophen) 325 Mg Tablet 325 Mg PO QID Tylenol (Acetaminophen) 325 Mg Tablet 1 Tab PO PRN Q4HRS Tramadol Hcl 50 Mg Tablet 25 Mg PO Q6HRS PRN Senna (Sennosides) 8.6 Mg Tablet 8.6 Mg PO PRN DAILY PRN 2 tabs Renvela (Sevelamer Carbonate) 800 Mg Tablet 800 Mg PO TIDWMEALS Renal Caps Softgel (Folic Acid/Vitamin B Comp W-C) 1 Mg Capsule 1 Mg PO DAILY Reglan (Metoclopramide Hcl) 10 Mg Tablet 5 Mg PO TID Protonix (Pantoprazole Sodium) 20 Mg Tablet.dr 1 Tab PO DAILY Probiotic (Lactobacillus Acidophilus) 1 Each Capsule 1 Each PO BID Milk Of Magnesia (Magnesium Hydroxide) 400 Mg/5 Ml Oral.susp 400 Mg PO PRN DAILY PRN Lipitor (Atorvastatin Calcium) 40 Mg Tablet 1 Tab PO QHS Skin Treatment (Ammonium Lactate) 225 Gm Lotion 225 Gm TP BID Humalog (Insulin Lispro) 100 Unit/1 Ml Insuln.pen 100 Unit SQ TIDBFRMEAL 150-199=1 unit 200-299=2 units 300-399=4 units 100-499=6 units Duoneb 0.5-3(2.5) Mg/3 Ml (Albuterol/Ipratropium) 3 Ml Ampul.neb 3 Ml NEB PRN Q4HRS PRN Clopidogrel (Clopidogrel Bisulfate) 75 Mg Tablet 1 Tab PO DAILY Clindamycin Hcl 150 Mg Capsule 150 Mg PO TID Dulcolax (Bisacodyl) 10 Mg Supp.rect 10 Mg RC PRN DAILY PRN Benadryl Allergy (Diphenhydramine Hcl) 12.5 Mg/5 Ml Liquid 10 Ml PO PRN Q6-8HRS Aspir-Low (Aspirin) 81 Mg Tablet. 1 Tab PO DAILY Allopurinol 100 Mg Tablet 1 Tab PO DAILY Tramadol Hcl 50 Mg Tablet 0.5 Mg PO PRN Q6HRS PRN Senna (Sennosides) 8.6 Mg Tablet 2 Tab PO PRN DAILY PRN Bisacodyl 10 Mg Supp.rect 10 Mg RC PRN DAILY PRN Protonix (Pantoprazole Sodium) 20 Mg Tablet.dr 1 Tab PO DAILY Duoneb 0.5-3(2.5) Mg/3 Ml (Albuterol/Ipratropium) 3 Ml Ampul.neb 3 Ml NEB PRN Q4HRS PRN Milk Of Magnesia (Magnesium Hydroxide) 400 Mg/5 Ml Oral.susp 400 Mg PO PRN DAILY PRN Lac-Hydrin Five (Ammonium Lactate) 226 Gm Lotion 226 Gm TP BID Benadryl Allergy (Diphenhydramine Hcl) 12.5 Mg/5 Ml Liquid 25 Mg PO PRN Q6HRS PRN Vitamin B-12 (Cyanocobalamin (Vitamin B-12)) 1,000 Mcg Tablet 1 Tab PO DAILY Allopurinol 100 Mg Tablet 1 Tab PO DAILY Renal Caps Softgel (Folic Acid/Vitamin B Comp W-C) 1 Mg Capsule 1 Cap PO DAILY Acidophilus Lactobacilli (Lactobacillus Acidophilus) 1 Each Capsule 1 Each PO BID Renvela (Sevelamer Carbonate) 800 Mg Tablet 800 Mg PO TIDWMEALS Tylenol (Acetaminophen) 325 Mg Tablet 1 Tab PO PRN Q4HRS Aspirin 81 Mg Tab.chew 81 Mg PO DAILY Lipitor (Atorvastatin Calcium) 40 Mg Tablet 40 Mg PO HS Clopidogrel (Clopidogrel Bisulfate) 75 Mg Tablet 75 Mg PO DAILY Vitamin D-3 (Cholecalciferol (Vitamin D3)) 2,000 Unit Capsule 1,000 Unit PO DAILY Vitals/I & O Vital Sign - Last 24 Hours 04/27/19 04/27/19 04/27/19 04/27/19 14:11 15:00 19:15 19:45 Temp 96.8 98.2 96.8 98.2 Pulse 60 61 Resp 18 18 B/P (MAP) 124/70 (88) 120/37 (64) Pulse Ox 97 92 O2 Delivery Room Air Room Air Room Air Room Air 04/27/19 04/27/19 04/28/19 04/28/19 20:27 23:29 01:01 02:01 Temp 97.7 97.7 Pulse 62 Resp 20 18 20 20 B/P (MAP) 151/29 (69) Pulse Ox 96 O2 Delivery Room Air Room Air Room Air 5/04/28/19 04/28/19 04/28/19 03:25 06:10 07:00 07:30 Temp 98.1 97.9 98.1 97.9 Pulse 61 63 Resp 20 20 18 B/P (MAP) 139/59 (85) 94/52 (66) Pulse Ox 98 97 O2 Delivery Room Air Room Air Room Air Room Air 04/28/19 04/28/19 11:52 12:55 O2 Delivery Room Air Room Air Intake and Output 04/27/19 04/27/19 04/28/19 15:00 23:00 07:00 Intake Total 90 ml 240 ml 240 ml Output Total 75 ml 90 ml Balance 15 ml 150 ml 240 ml KIMI TIDWELL MD April 28, 2019 13:08
--- NOTE | 2019-04-28 13:12 | PDOC ---
Provider Note Provider Note AF VSS awake and alert right BKA dressing dry, CAROL in place with serosanginous drainage A/P POD#1 right BKA - dressing change in the next few days - antibiotics per ID SITA ENRIQUEZ MD April 28, 2019 13:12
[2019-04-28 15:00] VITALS: BP 115/24
[2019-04-28 19:00] VITALS: BP 85/45
[2019-04-28] MEDS: ATORVASTATIN CALCIUM 40 MG TABLET. PO SCH (21:13)
[2019-04-28 22:40] VITALS: BP 100/70
[2019-04-29] MEDS: traMADol 50 MG TABLET PO PRN ×3 (01:20→23:29)
[2019-04-29 03:00] VITALS: BP 102/55
[2019-04-29] MEDS: PIPERACILLIN/TAZOBACTAM 2.25 GM in IV NORMAL SALINE 50ML 50 ML IV SCH ×3 (06:00→23:29)
[2019-04-29 07:00] VITALS: BP 114/24
[2019-04-29] MEDS: METOCLOPRAMIDE 5 MG TABLET. PO SCH ×3 (07:55→16:16)
[2019-04-29] MEDS: PANTOPRAZOLE 40 MG TABLET.DR. PO SCH (07:55)
[2019-04-29] MEDS: INSULIN LISPRO 300 UNITS/3 ML INSULN.PEN. SQ SCH ×3 (08:00→17:00)
[2019-04-29] MEDS: CYANOCOBALAMIN (VITAMIN B-12) 1,000 MCG TABLET. PO SCH (08:36)
[2019-04-29] MEDS: ASPIRIN ENTERIC COATED 81 MG TABLET.DR. PO SCH (08:36)
[2019-04-29] MEDS: CHOLECALCIFEROL (VITAMIN D3) 1,000 UNIT TABLET PO SCH (08:36)
[2019-04-29] MEDS: ACETAMINOPHEN 325 MG TABLET. PO SCH ×4 (08:36→21:15)
[2019-04-29] MEDS: SEVELAMER CARBONATE 800 MG TABLET. PO SCH ×3 (08:36→17:20)
[2019-04-29] MEDS: FOLIC/VIT B COMP W-C (RENAL) TABLET. PO SCH (08:36)
[2019-04-29] MEDS: LACTOBACILLUS RHAMNOSUS GG 1 CAPSULE. PO SCH ×2 (08:36→21:15)
[2019-04-29] MEDS: ALLOPURINOL 100 MG TABLET. PO SCH (08:36)
[2019-04-29] MEDS: CLOPIDOGREL BISULFATE 75 MG TABLET PO SCH (08:36)
--- NOTE | 2019-04-29 10:42 | PDOC ---
Provider Note Provider Note AF VSS awake and alert right BKA dressing removed, CAROL removed, incision intact with no erythema, no hematoma, minimal bloody drainage A/P POD#2 right BKA - dry dressing daily - continue medical management, placement ok with vascular when medically stable SITA ENRIQUEZ MD Apr 29, 2019 10:42
--- NOTE | 2019-04-29 10:49 | NUR ---
Dr. Street notified of pt's pain meds.
[2019-04-29 11:00] VITALS: BP 143/37
--- NOTE | 2019-04-29 11:13 | PDOC ---
PROGRESS NOTES Subjective Subjective constipated and will order lactulose today. having pain and will increase prn tramadol. he becomes encephalopathic with narcotics in past. Objective Objective Vital Signs Date Time Temp Pulse Resp B/P (MAP) Pulse Ox O2 Delivery O2 Flow Rate FiO2 04/29/19 09:08 Room Air 04/29/19 07:00 98.2 60 18 114/24 (54) 97 98.2 04/27/19 11:45 8 Intake and Output 04/29/19 07:00 Intake Total 1040 ml Output Total 50 ml Balance 990 ml Intake Oral 480 ml IV Total 350 ml Other 210 ml Output Urine Total 0 ml Drainage Total 50 ml Physical Exam Abdomen: Soft Heart: Regular rate, Normal S1, Normal S2 Extremities: No edema, Other (right BKA with dressing) General: Alert HEENT: Atraumatic Lungs: Clear to auscultation Neuro: Normal speech Psych/Mental Status: Mental status NL Skin: No rashes Assessment Assessment 1. 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 History of right transmetatarsal amputation with skin graft. 3. End-stage renal disease on hemodialysis. 4. Obstructive sleep apnea. 5. Diabetes mellitus type 2 with peripheral neuropathy. 6. Peripheral arterial disease. 7. Anemia of chronic disease. 8. Hyperlipidemia. 9. Morbid obesity. left heel wound phantom limb pain constipation Plan Plan of Care continue zyvox and zosyn per ID lactulose today increase prn tramadol Comment Review of Relevant I have reviewed the following items simeon (where applicable) has been applied. Labs Laboratory Tests Test 04/27/19 11:39 04/27/19 16:44 04/28/19 03:25 04/28/19 07:35 Glucose (Fingerstick) 132 mg/dL (70-99) 157 mg/dL (70-99) 127 mg/dL (70-99) White Blood Count 12.7 x10^3/uL (4.0-11.0) Red Blood Count 3.84 x10^6/uL (4.30-5.70) Hemoglobin 10.7 g/dL (13.0-17.5) Hematocrit 33.4 % (39.0-53.0) Mean Corpuscular Volume 87 fL (79-100) Mean Corpuscular Hemoglobin 28 pg (25-35) Mean Corpuscular Hemoglobin Concent 32 g/dL (31-37) Red Cell Distribution Width 18.3 % (11.5-14.5) Platelet Count 356 x10^3/uL (140-400) Neutrophils (%) (Auto) 82 % (31-73) Lymphocytes (%) (Auto) 11 % (24-48) Monocytes (%) (Auto) 6 % (0-9) Eosinophils (%) (Auto) 1 % (0-3) Basophils (%) (Auto) 1 % (0-3) Neutrophils # (Auto) 10.3 x10^3uL (1.8-7.7) Lymphocytes # (Auto) 1.4 x10^3/uL (1.0-4.8) Monocytes # (Auto) 0.8 x10^3/uL (0.0-1.1) Eosinophils # (Auto) 0.1 x10^3/uL (0.0-0.7) Basophils # (Auto) 0.1 x10^3/uL (0.0-0.2) Sodium Level 140 mmol/L (136-145) Potassium Level 4.5 mmol/L (3.5-5.1) Chloride Level 101 mmol/L (98-107) Carbon Dioxide Level 28 mmol/L (21-32) Anion Gap 11 (6-14) Blood Urea Nitrogen 29 mg/dL (8-26) Creatinine 4.9 mg/dL (0.7-1.3) Estimated GFR (Cockcroft-Gault) 14.0 Glucose Level 175 mg/dL (70-99) Calcium Level 8.9 mg/dL (8.5-10.1) Test 04/28/19 11:59 04/28/19 16:49 04/28/19 20:55 04/29/19 08:13 Glucose (Fingerstick) 111 mg/dL (70-99) 126 mg/dL (70-99) 136 mg/dL (70-99) 112 mg/dL (70-99) Laboratory Tests Test 04/28/19 11:59 04/28/19 16:49 04/28/19 20:55 04/29/19 08:13 Glucose (Fingerstick) 111 mg/dL (70-99) 126 mg/dL (70-99) 136 mg/dL (70-99) 112 mg/dL (70-99) Microbiology 04/24/19 Anaerobic/Aerobic Culture, Resulted Pending 04/24/19 Anaerobic Culture Result 1 (SIXTO), Resulted Pending 04/24/19 Aerobic Culture - Final, Resulted 04/24/19 Aerobic Culture Result 1 (SIXTO) - Final, Resulted 04/24/19 Aerobic Culture Result 2 (SIXTO) - Final, Resulted 04/24/19 Antimicrobic Susceptibility - Final, Resulted 04/24/19 Gram Stain - Final, Resulted 04/24/19 Gram Stain Result 1 (SIXTO) - Final, Resulted 04/24/19 Gram Stain Result 2 (SIXTO) - Final, Resulted Medications Current Medications Linezolid/Dextrose 300 ml @ 300 mls/hr Q12HR IV Last administered on 04/29/19at 08:37; Start 04/24/19 at 13:30 Piperacillin Sod/ Tazobactam Sod 2.25 gm/Sodium Chloride 50 ml @ 100 mls/hr Q8HRS IV Last administered on 04/29/19at 06:00; Start 04/24/19 at 14:00 Magnesium Hydroxide (Milk Of Magnesia) 2,400 mg PRN DAILY PRN PO CONSTIPATION; Start 04/24/19 at 12:15 Ondansetron HCl (Zofran Odt) 4 mg PRN Q6HRS PRN PO NAUSEA/VOMITING, 1st CHOICE; Start 04/24/19 at 12:15 Tramadol HCl (Ultram) 25 mg PRN Q6HRS PRN PO MODERATE PAIN Last administered on 04/29/19at 07:55; Start 04/24/19 at 12:15; Stop 04/29/19 at 11:09; Status DC Aspirin (Ecotrin) 81 mg DAILYWBKFT PO Last administered on 04/29/19at 08:36; Start 04/24/19 at 13:30 Sevelamer Carbonate (Renvela) 800 mg TIDWMEALS PO Last administered on 04/29/19 08:36; Start 04/24/19 at 13:30 Cyanocobalamin (Vitamin B-12) 1,000 mcg DAILY PO Last administered on 04/29/19 08:36; Start 04/24/19 at 13:30 Allopurinol (Zyloprim) 100 mg DAILY PO Last administered on 04/29/19at 08:36; Start 04/24/19 at 13:30 Atorvastatin Calcium (Lipitor) 40 mg QHS PO Last administered on 04/28/19 21:13; Start 04/24/19 at 21:00 Acetaminophen (Tylenol) 325 mg PRN QID PRN PO MILD PAIN / TEMP Last administered on 04/29/19 06:00; Start 04/24/19 at 12:15 Clopidogrel Bisulfate (Plavix) 75 mg DAILYWBKFT PO Last administered on 04/29/19 08:36; Start 04/24/19 at 13:30 Metoclopramide HCl (Reglan) 5 mg PRN BFRMEALHC PRN PO NAUSEA/VOMITING, 2nd CHOICE; Start 04/24/19 at 12:15 Vitamin D (Vitamin D3) 1,000 unit DAILY PO Last administered on 04/29/19 08:36; Start 04/24/19 at 13:30 Pantoprazole Sodium (Protonix) 40 mg DAILYAC PO Last administered on 04/29/19 07:55; Start 04/24/19 at 13:30 Insulin Human Lispro (HumaLOG) 0-5 UNITS TIDWMEALS SQ ; Start 04/24/19 at 17:00 Dextrose (Dextrose 50%-Water Syringe) 12.5 gm PRN Q15MIN PRN IV SEE COMMENTS; Start 04/24/19 at 12:15 Lactobacillus Rhamnosus (Culturelle) 1 cap BID PO Last administered on 04/29/19 08:36; Start 04/24/19 at 13:30 Vitamin B Complex/ Vitamin C (Krista-Beatriz) 1 tab DAILY PO Last administered on 04/29/19 08:36; Start 04/24/19 at 13:30 Piperacillin Sod/ Tazobactam Sod 2.25 gm/Sodium Chloride 50 ml @ 100 mls/hr Q8HRS IV ; Start 04/24/19 at 14:00; Status UNV Clopidogrel Bisulfate (Plavix) 75 mg DAILYWBKFT PO ; Start 04/25/19 at 08:00; Status UNV Metoclopramide HCl (Reglan) 5 mg TIDBFRMEAL PO Last administered on 04/29/19 07:55; Start 04/24/19 at 16:30 Vitamin D (Vitamin D3) 1,000 unit DAILY PO ; Start 04/25/19 at 09:00; Status UNV Pantoprazole Sodium (Protonix) 20 mg DAILYAC PO ; Start 04/25/19 at 07:30; Status UNV Aspirin (Onesimo Aspirin) 81 mg DAILYWBKFT PO ; Start 04/25/19 at 08:00; Status UNV Sevelamer Carbonate (Renvela) 800 mg TIDWMEALS PO ; Start 04/24/19 at 17:00; Status UNV Cyanocobalamin (Vitamin B-12) 1,000 mcg DAILY PO ; Start 04/25/19 at 09:00; Status UNV Lactobacillus Rhamnosus (Culturelle) 1 cap BID PO ; Start 04/24/19 at 21:00; Status UNV Allopurinol (Zyloprim) 100 mg DAILY PO ; Start 04/25/19 at 09:00; Status UNV Atorvastatin Calcium (Lipitor) 40 mg QHS PO ; Start 04/24/19 at 21:00; Status UNV Acetaminophen (Tylenol) 325 mg PRN Q6HRS PRN PO MILD PAIN / TEMP; Start 04/24/19 at 12:15; Status UNV Acetaminophen (Tylenol) 325 mg QID PO Last administered on 04/29/19at 08:36; Start 04/24/19 at 13:30 Ondansetron HCl (Zofran Odt) 4 mg PRN Q6HRS PRN PO NAUSEA/VOMITING; Start 04/24/19 at 12:15; Status UNV Tramadol HCl (Ultram) 25 mg PRN Q6HRS PRN PO PAIN; Start 04/24/19 at 12:15; Status UNV Diphenhydramine HCl (Benadryl) 25 mg PRN Q6HRS PRN PO ITCHING; Start 04/24/19 at 12:15 Magnesium Hydroxide (Milk Of Magnesia) 2,400 mg PRN DAILY PRN PO CONSTIPATION; Start 04/24/19 at 12:15; Status UNV Insulin Human Lispro (HumaLOG) 0-6 UNITS BG 300-39... TIDWMEALS SQ ; Start 04/24/19 at 17:00; Status UNV Sodium Chloride 1,000 ml @ 1,000 mls/hr Q1H PRN IV hypotension; Start 04/24/19 at 17:00; Stop 04/24/19 at 23:00; Status DC Sodium Chloride 1,000 ml @ 400 mls/hr Q2H30M PRN IV PATENCY; Start 04/24/19 at 17:00; Stop 04/24/19 at 23:00; Status DC Info (PHARMACY MONITORING -- do not chart) 1 each PRN DAILY PRN MC SEE CO MMENTS; Start 04/24/19 at 17:15; Status UNV Info (PHARMACY MONITORING -- do not chart) 1 each PRN DAILY PRN MC SEE COMMENTS; Start 04/24/19 at 17:15; Stop 04/26/19 at 11:06; Status DC Darbepoetin Reinaldo (Aranesp) 60 mcg WEEKLYHS SQ Last administered on 04/25/19at 22:34; Start 04/25/19 at 21:00 Bacitracin 02035 unit/Sodium Chloride 500 ml @ 500 mls/hr 1X ONCE IRR ; Start 04/26/19 at 06:00; Stop 04/26/19 at 06:59; Status Cancel Ondansetron HCl (Zofran) 4 mg PRN Q6HRS PRN IV NAUSEA/VOMITING; Start 04/26/19 at 07:00; Stop 04/27/19 at 06:59; Status DC Morphine Sulfate (Morphine Sulfate) 1 mg PRN Q10MIN PRN IV SEVERE PAIN 7-10; Start 04/26/19 at 07:00; Stop 04/27/19 at 06:59; Status DC Ringer's Solution 1,000 ml @ 30 mls/hr Q24H IV ; Start 04/26/19 at 07:00; Stop 04/26/19 at 18:59; Status DC Hydromorphone HCl (Dilaudid) 0.5 mg PRN Q10MIN PRN IV SEV PAIN, Second choice; Start 04/26/19 at 07:00; Stop 04/27/19 at 06:59; Status DC Ondansetron HCl (Zofran) 4 mg PRN Q6HRS PRN IV NAUSEA/VOMITING; Start 04/26/19 at 07:00; Stop 04/27/19 at 06:59; Status UNV Morphine Sulfate (Morphine Sulfate) 1 mg PRN Q10MIN PRN IV SEVERE PAIN 7-10; Start 04/26/19 at 07:00; Stop 04/27/19 at 06:59; Status UNV Ringer's Solution 1,000 ml @ 30 mls/hr Q24H IV ; Start 04/26/19 at 07:00; Stop 04/26/19 at 18:59; Status UNV Hydromorphone HCl (Dilaudid) 0.5 mg PRN Q10MIN PRN IV SEV PAIN, Second choice; Start 04/26/19 at 07:00; Stop 04/27/19 at 06:59; Status UNV Sodium Chloride 1,000 ml @ 1,000 mls/hr Q1H PRN IV hypotension; Start 04/26/19 at 07:17; Stop 04/26/19 at 13:16; Status DC Sodium Chloride 1,000 ml @ 400 mls/hr Q2H30M PRN IV PATENCY; Start 04/26/19 at 07:17; Stop 04/26/19 at 19:16; Status DC Info (PHARMACY MONITORING -- do not chart) 1 each PRN DAILY PRN MC SEE COMMENTS; Start 04/26/19 at 07:30; Status UNV Info (PHARMACY MONITORING -- do not chart) 1 each PRN DAILY PRN MC SEE COMMENTS; Start 04/26/19 at 07:30 Lidocaine HCl 48 ml/Sodium Bicarbonate 12 meq/Miscellaneous 60 ml @ 60 mls/hr 1X ONCE ID ; Start 04/27/19 at 06:00; Stop 04/27/19 at 06:59; Status DC Ondansetron HCl (Zofran) 4 mg PRN Q6HRS PRN IV NAUSEA/VOMITING; Start 04/27/19 at 07:00; Stop 04/28/19 at 06:59; Status DC Fentanyl Citrate (Fentanyl 2ml Vial) 25 mcg PRN Q5MIN PRN IV MILD PAIN 1-3; Start 04/27/19 at 07:00; Stop 04/28/19 at 06:59; Status DC Fentanyl Citrate (Fentanyl 2ml Vial) 50 mcg PRN Q5MIN PRN IV MODERATE TO SEVERE PAIN Last administered on 04/27/19at 11:55; Start 04/27/19 at 07:00; Stop 04/28/19 at 06:59; Status DC Morphine Sulfate (Morphine Sulfate) 1 mg PRN Q10MIN PRN IV SEVERE PAIN 7-10; Start 04/27/19 at 07:00; Stop 04/28/19 at 06:59; Status DC Hydromorphone HCl (Dilaudid) 0.5 mg PRN Q10MIN PRN IV SEV PAIN, Second choice; Start 04/27/19 at 07:00; Stop 04/28/19 at 06:59; Status DC Prochlorperazine Edisylate (Compazine) 5 mg PACU PRN PRN IV NAUSEA, MRX1; Start 04/27/19 at 07:00; Stop 04/28/19 at 06:59; Status DC Sodium Chloride 1,000 ml @ 0 mls/hr Q0M IV ; Start 04/27/19 at 07:00; Stop 04/29/19 at 11:09; Status DC Propofol 20 ml @ As Directed STK-MED ONCE IV ; Start 04/27/19 at 08:51; Stop 04/27/19 at 08:52; Status DC Famotidine (Pepcid Vial) 20 mg STK-MED ONCE .ROUTE ; Start 04/27/19 at 08:51; Stop 04/27/19 at 08:52; Status DC Lidocaine HCl (Lidocaine Pf 2% Vial) 5 ml STK-MED ONCE .ROUTE ; Start 04/27/19 at 08:51; Stop 04/27/19 at 08:52; Status DC Ondansetron HCl (Zofran) 4 mg STK-MED ONCE .ROUTE ; Start 04/27/19 at 08:51; Stop 04/27/19 at 08:52; Status DC Fentanyl Citrate (Fentanyl 2ml Vial) 100 mcg STK-MED ONCE .ROUTE ; Start at 09:16; Stop 04/27/19 at 09:17; Status DC Dexamethasone Sodium Phosphate (Decadron) 4 mg STK-MED ONCE .ROUTE ; Start at 09:48; Stop 04/27/19 at 09:49; Status DC Ephedrine Sulfate (ePHEDrine PF IN SALINE SYRINGE) 50 mg STK-MED ONCE IV ; Start 04/27/19 at 09:53; Stop 04/27/19 at 09:54; Status DC Rocuronium [place] (Zemuron) 50 mg STK-MED ONCE .ROUTE ; Start 04/27/19 at 10:10; Stop 04/27/19 at 10:11; Status DC Lidocaine HCl (Xylocaine 1% Pf 30ml Vial) 60 ml STK-MED ONCE INJ ; Start 9 at 10:01; Stop 04/27/19 at 10:02; Status Cancel Sevoflurane (Ultane) 60 ml STK-MED ONCE IH ; Start 04/27/19 at 11:04; Stop at 11:05; Status DC Hydromorphone HCl (Dilaudid) 0.2 mg PRN Q4HRS PRN IVP PAIN; Start 04/27/19 at 11:30; Stop 04/28/19 at 13:10; Status DC Hydromorphone HCl (Dilaudid) 2 mg PRN Q4HRS PRN PO SEVERE PAIN Last administered on 04/28/19at 11:52; Start 04/27/19 at 11:30; Stop 04/28/19 at 13:10; Status DC Lidocaine HCl (Xylocaine-Mpf 1% 2ml Vial) 2 ml STK-MED ONCE .ROUTE ; Start 04/28/19 at 07:56; Stop 04/28/19 at 07:57; Status DC Sodium Chloride 1,000 ml @ 1,000 mls/hr Q1H PRN IV hypotension; Start 04/28/19 at 08:25; Stop 04/28/19 at 14:24; Status DC Diphenhydramine HCl (Benadryl) 25 mg 1X PRN PRN IV ITCHING; Start 04/28/19 at 08:30; Stop 04/29/19 at 08:29; Status DC Diphenhydramine HCl (Benadryl) 25 mg 1X PRN PRN IV ITCHING; Start 04/28/19 at 08:30; Stop 04/29/19 at 08:29; Status DC Sodium Chloride 1,000 ml @ 400 mls/hr Q2H30M PRN IV PATENCY; Start 04/28/19 at 08:25; Stop 04/28/19 at 20:24; Status DC Info (PHARMACY MONITORING -- do not chart) 1 each PRN DAILY PRN MC SEE COMMENTS; Start 04/28/19 at 08:30 Tramadol HCl (Ultram) 50 mg PRN Q6HRS PRN PO MODERATE PAIN; Start 04/29/19 at 11:15 Active Scripts Active Cephalexin 250 Mg Capsule 500 Mg PO BID 14 Days Ondansetron Odt (Ondansetron) 4 Mg Tab.rapdis 4 Mg PO Q6HRS PRN Metoclopramide Hcl 5 Mg Tablet 5 Mg PO TIDACHC Humalog (Insulin Lispro) 100 Unit/1 Ml Insuln.pen 0 Units SQ TIDWMEALS 30 Days BG 150-199= 1 units 200-299= 2 units 300-399= 4 units 400-499= 6 units ac tid sliding scale Reported Zofran (Ondansetron Hcl) 4 Mg Tablet 1 Tab PO Q6HRS Vitamin D3 (Cholecalciferol (Vitamin D3)) 1,000 Unit Tablet 1 Tab PO DAILY Vitamin B-12 (Cyanocobalamin (Vitamin B-12)) 1,000 Mcg Tablet 1 Tab PO DAILY Tylenol (Acetaminophen) 325 Mg Tablet 325 Mg PO QID Tylenol (Acetaminophen) 325 Mg Tablet 1 Tab PO PRN Q4HRS Tramadol Hcl 50 Mg Tablet 25 Mg PO Q6HRS PRN Senna (Sennosides) 8.6 Mg Tablet 8.6 Mg PO PRN DAILY PRN 2 tabs Renvela (Sevelamer Carbonate) 800 Mg Tablet 800 Mg PO TIDWMEALS Renal Caps Softgel (Folic Acid/Vitamin B Comp W-C) 1 Mg Capsule 1 Mg PO DAILY Reglan (Metoclopramide Hcl) 10 Mg Tablet 5 Mg PO TID Protonix (Pantoprazole Sodium) 20 Mg Tablet.dr 1 Tab PO DAILY Probiotic (Lactobacillus Acidophilus) 1 Each Capsule 1 Each PO BID Milk Of Magnesia (Magnesium Hydroxide) 400 Mg/5 Ml Oral.susp 400 Mg PO PRN DAILY PRN Lipitor (Atorvastatin Calcium) 40 Mg Tablet 1 Tab PO QHS Skin Treatment (Ammonium Lactate) 225 Gm Lotion 225 Gm TP BID Humalog (Insulin Lispro) 100 Unit/1 Ml Insuln.pen 100 Unit SQ TIDBFRMEAL 150-199=1 unit 200-299=2 units 300-399=4 units 100-499=6 units Duoneb 0.5-3(2.5) Mg/3 Ml (Albuterol/Ipratropium) 3 Ml Ampul.neb 3 Ml NEB PRN Q4HRS PRN Clopidogrel (Clopidogrel Bisulfate) 75 Mg Tablet 1 Tab PO DAILY Clindamycin Hcl 150 Mg Capsule 150 Mg PO TID Dulcolax (Bisacodyl) 10 Mg Supp.rect 10 Mg RC PRN DAILY PRN Benadryl Allergy (Diphenhydramine Hcl) 12.5 Mg/5 Ml Liquid 10 Ml PO PRN Q6-8HRS Aspir-Low (Aspirin) 81 Mg Tablet.dr 1 Tab PO DAILY Allopurinol 100 Mg Tablet 1 Tab PO DAILY Tramadol Hcl 50 Mg Tablet 0.5 Mg PO PRN Q6HRS PRN Senna (Sennosides) 8.6 Mg Tablet 2 Tab PO PRN DAILY PRN Bisacodyl 10 Mg Supp.rect 10 Mg RC PRN DAILY PRN Protonix (Pantoprazole Sodium) 20 Mg Tablet.dr 1 Tab PO DAILY Duoneb 0.5-3(2.5) Mg/3 Ml (Albuterol/Ipratropium) 3 Ml Ampul.neb 3 Ml NEB PRN Q4HRS PRN Milk Of Magnesia (Magnesium Hydroxide) 400 Mg/5 Ml Oral.susp 400 Mg PO PRN DAILY PRN Lac-Hydrin Five (Ammonium Lactate) 226 Gm Lotion 226 Gm TP BID Benadryl Allergy (Diphenhydramine Hcl) 12.5 Mg/5 Ml Liquid 25 Mg PO PRN Q6HRS PRN Vitamin B-12 (Cyanocobalamin (Vitamin B-12)) 1,000 Mcg Tablet 1 Tab PO DAILY Allopurinol 100 Mg Tablet 1 Tab PO DAILY Renal Caps Softgel (Folic Acid/Vitamin B Comp W-C) 1 Mg Capsule 1 Cap PO DAILY Acidophilus Lactobacilli (Lactobacillus Acidophilus) 1 Each Capsule 1 Each PO BID Renvela (Sevelamer Carbonate) 800 Mg Tablet 800 Mg PO TIDWMEALS Tylenol (Acetaminophen) 325 Mg Tablet 1 Tab PO PRN Q4HRS Aspirin 81 Mg Tab.chew 81 Mg PO DAILY Lipitor (Atorvastatin Calcium) 40 Mg Tablet 40 Mg PO HS Clopidogrel (Clopidogrel Bisulfate) 75 Mg Tablet 75 Mg PO DAILY Vitamin D-3 (Cholecalciferol (Vitamin D3)) 2,000 Unit Capsule 1,000 Unit PO DAILY Vitals/I & O Vital Sign - Last 24 Hours 04/28/19 04/28/19 04/28/19 04/28/19 11:52 12:55 15:00 19:00 Temp 97.8 98.0 97.8 98.0 Pulse 70 63 Resp 16 18 B/P (MAP) 115/24 (54) 85/45 (58) Pulse Ox 98 99 O2 Delivery Room Air Room Air Room Air Room Air 04/28/19 04/28/19 04/29/19 04/29/19 19:55 22:40 01:20 02:20 Temp 97.8 97.8 Pulse 60 Resp 19 20 20 B/P (MAP) 100/70 (80) Pulse Ox 97 O2 Delivery Room Air Room Air Room Air 04/29/19 04/29/19 04/29/19 04/29/19 03:00 07:00 07:15 07:55 Temp 98.1 98.2 98.1 98.2 Pulse 62 60 Resp 20 18 B/P (MAP) 102/55 (71) 114/24 (54) Pulse Ox 95 97 O2 Delivery Room Air Room Air Room Air Room Air 04/29/19 09:08 O2 Delivery Room Air Intake and Output 04/28/19 04/28/19 04/29/19 15:00 23:00 07:00 Intake Total 590 ml 450 ml Output Total 40 ml 10 ml 0 ml Balance 550 ml -10 ml 450 ml KIMI TIDWELL MD Apr 29, 2019 11:13
[2019-04-29] MEDS: LACTULOSE 20 GM/30 ML SOLUTION. PO SCH ×2 (12:46→15:30)
--- NOTE | 2019-04-29 14:55 | PDOC ---
Infectious Disease Note Subjective Subjective c/o right leg pain and mild upset stomach No F/C ROS ROS per HPI Vital Sign Vital Signs Vital Signs Date Time Temp Pulse Resp B/P (MAP) Pulse Ox O2 Delivery O2 Flow Rate FiO2 04/29/19 11:00 96.4 75 18 143/37 (72) 97 Room Air 96.4 Physical Exam PHYSICAL EXAM GENERAL: Propped up in bed, alert, NAD HEENT: Oral mucosa dry NECK: Supple LUNGS: Clear bilaterally. No wheezing. HEART: S1, S2. PPM ABDOMEN: Obese, soft, nontender EXTREMITIES: No gross edema. RUE-AV fistula. Right leg bandaged. Left heel protector in place. NEUROLOGIC: Alert, responds appropriately DERMATOLOGIC: Warm, dry. No generalized rash. PIV Labs Lab Laboratory Tests Test 04/28/19 16:49 04/28/19 20:55 04/29/19 08:13 04/29/19 11:06 Glucose (Fingerstick) 126 mg/dL (70-99) 136 mg/dL (70-99) 112 mg/dL (70-99) 172 mg/dL (70-99) Micro Microbiology 04/24/19 Anaerobic/Aerobic Culture, Resulted Pending 04/24/19 Anaerobic Culture Result 1 (SIXTO), Resulted Pending 04/24/19 Aerobic Culture - Final, Resulted 04/24/19 Aerobic Culture Result 1 (SIXTO) - Final, Resulted 04/24/19 Aerobic Culture Result 2 (SIXTO) - Final, Resulted 04/24/19 Antimicrobic Susceptibility - Final, Resulted 04/24/19 Gram Stain - Final, Resulted 04/24/19 Gram Stain Result 1 (SIXTO) - Final, Resulted 04/24/19 Gram Stain Result 2 (SIXTO) - Final, Resulted Objective Assessment Right lateral necrotic foot wound. 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 Left heel superficial wound not infected DM with neuropathy ESRD on HD Anemia of chroniic disease Chronic lymphedema Chronic venous stasis PAD Plan Plan of Care Cont Zosyn and Zyvox will deescalate 6/2 CBC in am Pain management per primary Attending Co-Sign Attending Co-Sign The patient was seen and interviewed as well as examined at the bedside. The chart was reviewed. The case was discussed. Agree with the plan of care. SHAVON KNAPP [employer] ACCOUNT SPECIALIST Apr 29, 2019 14:55 JAYY SUÁREZ MD Apr 29, 2019 16:27
[2019-04-29 15:00] VITALS: BP 137/39
--- NOTE | 2019-04-29 15:45 | PDOC ---
SUBJECTIVE ROS c/o Rt leg pain OBJECTIVE Vital Signs Vital Signs Date Time Temp Pulse Resp B/P (MAP) Pulse Ox O2 Delivery O2 Flow Rate FiO2 04/29/19 15:00 97.7 68 20 137/39 (71) 96 Room Air 97.7 I & 0 Intake and Output 04/29/19 06:59 Intake Total 1040 ml Output Total 50 ml Balance 990 ml Intake Oral 480 ml IV Total 350 ml Other 210 ml Output Urine Total 0 ml Drainage Total 50 ml PHYSICAL EXAM Physical Exam GENERAL: comfortably sleeping, alert, NAD HEENT: Oral mucosa moist NECK: Supple LUNGS: Clear bilaterally. No wheezing. HEART: S1, S2. PPM ABDOMEN: Obese, soft, nontender EXTREMITIES: No gross edema. RUE-AV fistula. Right leg bandaged. NEUROLOGIC: Alert, responds appropriately Skin : Warm, dry. No generalized rash. DIAGNOSIS/ASSESSMENT Assessment & Plan ESRD- On HD MWF Currently no indication today, continue per schedule Right lateral necrotic foot wound. 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 DM - Per primary Anemia - On BELLA Chronic lymphedema/Chronic venous stasis HyperPhos- On Phos Binder HTN- BP stable COMMENT/RELEVANT DATA Meds Current Medications Medications (Trade) Dose Ordered Sig/Bhavesh Start Time Stop Time Status Last Admin Dose Admin Acetaminophen (Tylenol) 325 mg QID 04/24/19 13:30 04/29/19 12:46 325 MG Allopurinol (Zyloprim) 100 mg DAILY 04/25/19 09:00 UNV Aspirin (Onesimo Aspirin) 81 mg DAILYWBKFT 04/25/19 08:00 UNV Aspirin (Ecotrin) 81 mg DAILYWBKFT 04/24/19 13:30 04/29/19 08:36 81 MG Atorvastatin Calcium (Lipitor) 40 mg QHS 04/24/19 21:00 UNV Bacitracin 71841 unit/Sodium Chloride 500 ml @ 500 mls/hr 1X ONCE 04/26/19 06:00 04/26/19 06:59 Cancel Clopidogrel Bisulfate (Plavix) 75 mg DAILYWBKFT 04/25/19 08:00 UNV Cyanocobalamin (Vitamin B-12) 1,000 mcg DAILY 04/25/19 09:00 UNV Darbepoetin Reinaldo (Aranesp) 60 mcg WEEKLYHS 04/25/19 21:00 04/25/19 22:34 60 MCG Dexamethasone Sodium Phosphate (Decadron) 4 mg STK-MED ONCE 04/27/19 09:48 04/27/19 09:49 DC Dextrose (Dextrose 50%-Water Syringe) 12.5 gm PRN Q15MIN PRN 04/24/19 12:15 Diphenhydramine HCl (Benadryl) 25 mg 1X PRN PRN 04/28/19 08:30 04/29/19 08:29 DC Ephedrine Sulfate (ePHEDrine PF IN SALINE SYRINGE) 50 mg STK-MED ONCE 04/27/19 09:53 04/27/19 09:54 DC Famotidine (Pepcid Vial) 20 mg STK-MED ONCE 04/27/19 08:51 04/27/19 08:52 DC Fentanyl Citrate (Fentanyl 2ml Vial) 100 mcg STK-MED ONCE 04/27/19 09:16 04/27/19 09:17 DC Hydromorphone HCl (Dilaudid) 2 mg PRN Q4HRS PRN 04/27/19 11:30 04/28/19 13:10 DC 04/28/19 11:52 2 MG Info (PHARMACY MONITORING -- do not chart) 1 each PRN DAILY PRN 04/28/19 08:30 Insulin Human Lispro (HumaLOG) 0-6 UNITS BG 300-39... TIDWMEALS 04/24/19 17:00 UNV Lactobacillus Rhamnosus (Culturelle) 1 cap BID 04/24/19 21:00 UNV Lactulose (Lactulose) 20 gm Q2H 04/29/19 13:00 04/29/19 15:01 DC 04/29/19 15:30 20 GM Lidocaine HCl (Lidocaine Pf 2% Vial) 5 ml STK-MED ONCE 04/27/19 08:51 04/27/19 08:52 DC Lidocaine HCl (Xylocaine 1% Pf 30ml Vial) 60 ml STK-MED ONCE 04/27/19 10:01 04/27/19 10:02 Cancel Lidocaine HCl (Xylocaine-Mpf 1% 2ml Vial) 2 ml STK-MED ONCE 04/28/19 07:56 04/28/19 07:57 DC Lidocaine HCl 48 ml/Sodium Bicarbonate 12 meq/Miscellaneous 60 ml @ 60 mls/hr 1X ONCE 04/27/19 06:00 04/27/19 06:59 DC Linezolid/Dextrose 300 ml @ 300 mls/hr Q12HR 04/24/19 13:30 04/29/19 08:37 300 MLS/HR Magnesium Hydroxide (Milk Of Magnesia) 2,400 mg PRN DAILY PRN 04/24/19 12:15 UNV Metoclopramide HCl (Reglan) 5 mg TIDBFRMEAL 04/24/19 16:30 04/29/19 11:57 5 MG Morphine Sulfate (Morphine Sulfate) 1 mg PRN Q10MIN PRN 04/27/19 07:00 04/28/19 06:59 DC Ondansetron HCl (Zofran Odt) 4 mg PRN Q6HRS PRN 04/24/19 12:15 UNV Ondansetron HCl (Zofran) 4 mg STK-MED ONCE 04/27/19 08:51 04/27/19 08:52 DC Pantoprazole Sodium (Protonix) 20 mg DAILYAC 04/25/19 07:30 UNV Piperacillin Sod/ Tazobactam Sod 2.25 gm/Sodium Chloride 50 ml @ 100 mls/hr Q8HRS 04/24/19 14:00 UNV Prochlorperazine Edisylate (Compazine) 5 mg PACU PRN PRN 04/27/19 07:00 04/28/19 06:59 DC Propofol 20 ml @ As Directed STK-MED ONCE 04/27/19 08:51 04/27/19 08:52 DC Ringer's Solution 1,000 ml @ 30 mls/hr Q24H 04/26/19 07:00 04/26/19 18:59 UNV Rocuronium [place] (Zemuron) 50 mg STK-MED ONCE 04/27/19 10:10 04/27/19 10:11 DC Sevelamer Carbonate (Renvela) 800 mg TIDWMEALS 04/24/19 17:00 UNV Sevoflurane (Ultane) 60 ml STK-MED ONCE 04/27/19 11:04 04/27/19 11:05 DC Sodium Chloride 1,000 ml @ 400 mls/hr Q2H30M PRN 04/28/19 08:25 04/28/19 20:24 DC Tramadol HCl (Ultram) 50 mg PRN Q6HRS PRN 04/29/19 11:15 Vitamin B Complex/ Vitamin C (Krista-Beatriz) 1 tab DAILY 04/24/19 13:30 04/29/19 08:36 1 TAB Vitamin D (Vitamin D3) 1,000 unit DAILY 04/25/19 09:00 UNV Lab Laboratory Tests Test 04/28/19 16:49 04/28/19 20:55 04/29/19 08:13 04/29/19 11:06 Glucose (Fingerstick) 126 mg/dL (70-99) 136 mg/dL (70-99) 112 mg/dL (70-99) 172 mg/dL (70-99) Results All relevant outside records, renal labs, imaging studies, telemetry/EKG's were reviewed. WAYLON GONZALEZ MD Apr 29, 2019 15:45
[2019-04-29 19:00] VITALS: BP 134/58
[2019-04-29] MEDS: ATORVASTATIN CALCIUM 40 MG TABLET. PO SCH (21:15)
[2019-04-29 23:00] VITALS: BP 127/74
[2019-04-30 03:00] VITALS: BP 124/55
[2019-04-30 06:14] LABS: BASO # 0.1 x10^3/uL (0.0-0.2); BASO % 1 % (0-3); EOS # 0.5 x10^3/uL (0.0-0.7); EOS % 5 % (0-3); HEMATOCRIT 32.9 % (39.0-53.0); HEMOGLOBIN 10.7 g/dL (13.0-17.5); LYMPH # 1.3 x10^3/uL (1.0-4.8); LYMPH % 13 % (24-48); MEAN CORPUSCULAR HEMOGLOBIN 28 pg (25-35); MEAN CORPUSCULAR HGB CONC 33 g/dL (31-37); MEAN CORPUSCULAR VOLUME 87 fL (79-100); MONO # 0.6 x10^3/uL (0.0-1.1); MONO % 6 % (0-9); NEUT # 7.7 x10^3uL (1.8-7.7); NEUT % 76 % (31-73); PLATELET COUNT 307 x10^3/uL (140-400); RED BLOOD COUNT 3.78 x10^6/uL (4.30-5.70); RED CELL DISTRIBUTION WIDTH 18.3 % (11.5-14.5); WHITE BLOOD COUNT 10.1 x10^3/uL (4.0-11.0)
[2019-04-30] MEDS: PANTOPRAZOLE 40 MG TABLET.DR. PO SCH (06:30)
[2019-04-30] MEDS: METOCLOPRAMIDE 5 MG TABLET. PO SCH ×3 (06:30→17:20)
[2019-04-30] MEDS: PIPERACILLIN/TAZOBACTAM 2.25 GM in IV NORMAL SALINE 50ML 50 ML IV SCH (06:30)
[2019-04-30 07:00] VITALS: BP 172/30
[2019-04-30] MEDS: INSULIN LISPRO 300 UNITS/3 ML INSULN.PEN. SQ SCH ×3 (07:59→17:00)
[2019-04-30] MEDS: CYANOCOBALAMIN (VITAMIN B-12) 1,000 MCG TABLET. PO SCH (08:37)
[2019-04-30] MEDS: CLOPIDOGREL BISULFATE 75 MG TABLET PO SCH (08:37)
[2019-04-30] MEDS: LACTOBACILLUS RHAMNOSUS GG 1 CAPSULE. PO SCH ×2 (08:38→22:55)
[2019-04-30] MEDS: ALLOPURINOL 100 MG TABLET. PO SCH (08:38)
[2019-04-30] MEDS: CHOLECALCIFEROL (VITAMIN D3) 1,000 UNIT TABLET PO SCH (08:38)
[2019-04-30] MEDS: SEVELAMER CARBONATE 800 MG TABLET. PO SCH ×3 (08:38→17:19)
[2019-04-30] MEDS: ACETAMINOPHEN 325 MG TABLET. PO SCH ×4 (08:38→22:55)
[2019-04-30] MEDS: FOLIC/VIT B COMP W-C (RENAL) TABLET. PO SCH (08:38)
[2019-04-30] MEDS: ASPIRIN ENTERIC COATED 81 MG TABLET.DR. PO SCH (08:38)
[2019-04-30] MEDS: traMADol 50 MG TABLET PO PRN ×2 (08:47→22:55)
--- NOTE | 2019-04-30 10:27 | PDOC ---
PROGRESS NOTES Subjective Subjective feels better. pain under better control. he had good results with lactulose per nurse. lab reviewed. Objective Objective Vital Signs Date Time Temp Pulse Resp B/P (MAP) Pulse Ox O2 Delivery O2 Flow Rate FiO2 04/30/19 09:49 Room Air 04/30/19 07:00 98.4 60 20 172/30 (77) 94 98.4 04/29/19 20:00 8.0 Intake and Output 04/30/19 06:59 Intake Total 1160 ml Output Total 0 ml Balance 1160 ml Intake Oral 1160 ml Output Urine Total 0 ml # Bowel Movements 6 Physical Exam Abdomen: Soft, Other (obese) Heart: Regular rate, Normal S1, Normal S2 Extremities: Other (right AKA) General: Alert HEENT: Atraumatic Lungs: Clear to auscultation Neuro: Normal speech Psych/Mental Status: Mental status NL Skin: No rashes Assessment Assessment 1. 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 History of right transmetatarsal amputation with skin graft. 3. End-stage renal disease on hemodialysis. 4. Obstructive sleep apnea. 5. Diabetes mellitus type 2 with peripheral neuropathy. 6. Peripheral arterial disease. 7. Anemia of chronic disease. 8. Hyperlipidemia. 9. Morbid obesity. left heel wound phantom limb pain better Plan Plan of Care descaling antibiotics per ID anticipate dismissal to [facility] tomorrow after hemodialysis hemodialysis tomorrow Comment Review of Relevant I have reviewed the following items simeon (where applicable) has been applied. Labs Laboratory Tests Test 04/28/19 11:59 04/28/19 16:49 04/28/19 20:55 04/29/19 08:13 Glucose (Fingerstick) 111 mg/dL (70-99) 126 mg/dL (70-99) 136 mg/dL (70-99) 112 mg/dL (70-99) Test 04/29/19 11:06 04/29/19 16:57 04/29/19 21:12 04/30/19 05:30 Glucose (Fingerstick) 172 mg/dL (70-99) 134 mg/dL (70-99) 115 mg/dL (70-99) White Blood Count 10.1 x10^3/uL (4.0-11.0) Red Blood Count 3.78 x10^6/uL (4.30-5.70) Hemoglobin 10.7 g/dL (13.0-17.5) Hematocrit 32.9 % (39.0-53.0) Mean Corpuscular Volume 87 fL (79-100) Mean Corpuscular Hemoglobin 28 pg (25-35) Mean Corpuscular Hemoglobin Concent 33 g/dL (31-37) Red Cell Distribution Width 18.3 % (11.5-14.5) Platelet Count 307 x10^3/uL (140-400) Neutrophils (%) (Auto) 76 % (31-73) Lymphocytes (%) (Auto) 13 % (24-48) Monocytes (%) (Auto) 6 % (0-9) Eosinophils (%) (Auto) 5 % (0-3) Basophils (%) (Auto) 1 % (0-3) Neutrophils # (Auto) 7.7 x10^3uL (1.8-7.7) Lymphocytes # (Auto) 1.3 x10^3/uL (1.0-4.8) Monocytes # (Auto) 0.6 x10^3/uL (0.0-1.1) Eosinophils # (Auto) 0.5 x10^3/uL (0.0-0.7) Basophils # (Auto) 0.1 x10^3/uL (0.0-0.2) Test 04/30/19 07:32 Glucose (Fingerstick) 95 mg/dL (70-99) Laboratory Tests Test 04/29/19 11:06 04/29/19 16:57 04/29/19 21:12 04/30/19 05:30 Glucose (Fingerstick) 172 mg/dL (70-99) 134 mg/dL (70-99) 115 mg/dL (70-99) White Blood Count 10.1 x10^3/uL (4.0-11.0) Red Blood Count 3.78 x10^6/uL (4.30-5.70) Hemoglobin 10.7 g/dL (13.0-17.5) Hematocrit 32.9 % (39.0-53.0) Mean Corpuscular Volume 87 fL (79-100) Mean Corpuscular Hemoglobin 28 pg (25-35) Mean Corpuscular Hemoglobin Concent 33 g/dL (31-37) Red Cell Distribution Width 18.3 % (11.5-14.5) Platelet Count 307 x10^3/uL (140-400) Neutrophils (%) (Auto) 76 % (31-73) Lymphocytes (%) (Auto) 13 % (24-48) Monocytes (%) (Auto) 6 % (0-9) Eosinophils (%) (Auto) 5 % (0-3) Basophils (%) (Auto) 1 % (0-3) Neutrophils # (Auto) 7.7 x10^3uL (1.8-7.7) Lymphocytes # (Auto) 1.3 x10^3/uL (1.0-4.8) Monocytes # (Auto) 0.6 x10^3/uL (0.0-1.1) Eosinophils # (Auto) 0.5 x10^3/uL (0.0-0.7) Basophils # (Auto) 0.1 x10^3/uL (0.0-0.2) Test 04/30/19 07:32 Glucose (Fingerstick) 95 mg/dL (70-99) Microbiology 04/24/19 Anaerobic/Aerobic Culture - Final, Complete 04/24/19 Anaerobic Culture Result 1 (SIXTO) - Final, Complete 04/24/19 Aerobic Culture - Final, Complete 04/24/19 Aerobic Culture Result 1 (SIXTO) - Final, Complete 04/24/19 Aerobic Culture Result 2 (SIXTO) - Final, Complete 04/24/19 Antimicrobic Susceptibility - Final, Complete 04/24/19 Gram Stain - Final, Complete 04/24/19 Gram Stain Result 1 (SIXTO) - Final, Complete 04/24/19 Gram Stain Result 2 (SIXTO) - Final, Complete Medications Current Medications Linezolid/Dextrose 300 ml @ 300 mls/hr Q12HR IV Last administered on 04/30/19at 08:38; Start 04/24/19 at 13:30 Piperacillin Sod/ Tazobactam Sod 2.25 gm/Sodium Chloride 50 ml @ 100 mls/hr Q8HRS IV Last administered on 04/30/19at 06:30; Start 04/24/19 at 14:00 Magnesium Hydroxide (Milk Of Magnesia) 2,400 mg PRN DAILY PRN PO CONSTIPATION; Start 04/24/19 at 12:15 Ondansetron HCl (Zofran Odt) 4 mg PRN Q6HRS PRN PO NAUSEA/VOMITING, 1st CHOICE; Start 04/24/19 at 12:15 Tramadol HCl (Ultram) 25 mg PRN Q6HRS PRN PO MODERATE PAIN Last administered on 04/29/19 07:55; Start 04/24/19 at 12:15; Stop 04/29/19 at 11:09; Status DC Aspirin (Ecotrin) 81 mg DAILYWBKFT PO Last administered on 04/30/19 08:38; Start 04/24/19 at 13:30 Sevelamer Carbonate (Renvela) 800 mg TIDWMEALS PO Last administered on 04/30/19 08:38; Start 04/24/19 at 13:30 Cyanocobalamin (Vitamin B-12) 1,000 mcg DAILY PO Last administered on 04/30/19 08:37; Start 04/24/19 at 13:30 Allopurinol (Zyloprim) 100 mg DAILY PO Last administered on 04/30/19 08:38; Start 04/24/19 at 13:30 Atorvastatin Calcium (Lipitor) 40 mg QHS PO Last administered on 04/29/19 21:15; Start 04/24/19 at 21:00 Acetaminophen (Tylenol) 325 mg PRN QID PRN PO MILD PAIN / TEMP Last administered on 04/29/19 06:00; Start 04/24/19 at 12:15 Clopidogrel Bisulfate (Plavix) 75 mg DAILYWBKFT PO Last administered on 04/30/19 08:37; Start 04/24/19 at 13:30 Metoclopramide HCl (Reglan) 5 mg PRN BFRMEALHC PRN PO NAUSEA/VOMITING, 2nd CHOICE; Start 04/24/19 at 12:15 Vitamin D (Vitamin D3) 1,000 unit DAILY PO Last administered on 04/30/19 08:38; Start 04/24/19 at 13:30 Pantoprazole Sodium (Protonix) 40 mg DAILYAC PO Last administered on 04/30/19 0 6:30; Start 04/24/19 at 13:30 Insulin Human Lispro (HumaLOG) 0-5 UNITS TIDWMEALS SQ Last administered on 04/29/19 12:00; Start 04/24/19 at 17:00 Dextrose (Dextrose 50%-Water Syringe) 12.5 gm PRN Q15MIN PRN IV SEE COMMENTS; Start 04/24/19 at 12:15 Lactobacillus Rhamnosus (Culturelle) 1 cap BID PO Last administered on 04/30/19at 08:38; Start 04/24/19 at 13:30 Vitamin B Complex/ Vitamin C (Krista-Beatriz) 1 tab DAILY PO Last administered on 04/30/19at 08:38; Start 04/24/19 at 13:30 Piperacillin Sod/ Tazobactam Sod 2.25 gm/Sodium Chloride 50 ml @ 100 mls/hr Q8HRS IV ; Start 04/24/19 at 14:00; Status UNV Clopidogrel Bisulfate (Plavix) 75 mg DAILYWBKFT PO ; Start 04/25/19 at 08:00; Status UNV Metoclopramide HCl (Reglan) 5 mg TIDBFRMEAL PO Last administered on 04/30/19at 06:30; Start 04/24/19 at 16:30 Vitamin D (Vitamin D3) 1,000 unit DAILY PO ; Start 04/25/19 at 09:00; Status UNV Pantoprazole Sodium (Protonix) 20 mg DAILYAC PO ; Start 04/25/19 at 07:30; Status UNV Aspirin (Onesimo Aspirin) 81 mg DAILYWBKFT PO ; Start 04/25/19 at 08:00; Status UNV Sevelamer Carbonate (Renvela) 800 mg TIDWMEALS PO ; Start 04/24/19 at 17:00; Status UNV Cyanocobalamin (Vitamin B-12) 1,000 mcg DAILY PO ; Start 04/25/19 at 09:00; Status UNV Lactobacillus Rhamnosus (Culturelle) 1 cap BID PO ; Start 04/24/19 at 21:00; Status UNV Allopurinol (Zyloprim) 100 mg DAILY PO ; Start 04/25/19 at 09:00; Status UNV Atorvastatin Calcium (Lipitor) 40 mg QHS PO ; Start 04/24/19 at 21:00; Status UNV Acetaminophen (Tylenol) 325 mg PRN Q6HRS PRN PO MILD PAIN / TEMP; Start 04/24/19 at 12:15; Status UNV Acetaminophen (Tylenol) 325 mg QID PO Last administered on 04/30/19at 08:38; S tart 04/24/19 at 13:30 Ondansetron HCl (Zofran Odt) 4 mg PRN Q6HRS PRN PO NAUSEA/VOMITING; Start 04/24/19 at 12:15; Status UNV Tramadol HCl (Ultram) 25 mg PRN Q6HRS PRN PO PAIN; Start 04/24/19 at 12:15; Status UNV Diphenhydramine HCl (Benadryl) 25 mg PRN Q6HRS PRN PO ITCHING; Start 04/24/19 at 12:15 Magnesium Hydroxide (Milk Of Magnesia) 2,400 mg PRN DAILY PRN PO CONSTIPATION; Start 04/24/19 at 12:15; Status UNV Insulin Human Lispro (HumaLOG) 0-6 UNITS BG 300-39... TIDWMEALS SQ ; Start 04/24/19 at 17:00; Status UNV Sodium Chloride 1,000 ml @ 1,000 mls/hr Q1H PRN IV hypotension; Start 04/24/19 at 17:00; Stop 04/24/19 at 23:00; Status DC Sodium Chloride 1,000 ml @ 400 mls/hr Q2H30M PRN IV PATENCY; Start 04/24/19 at 17:00; Stop 04/24/19 at 23:00; Status DC Info (PHARMACY MONITORING -- do not chart) 1 each PRN DAILY PRN MC SEE COMMENTS; Start 04/24/19 at 17:15; Status UNV Info (PHARMACY MONITORING -- do not chart) 1 each PRN DAILY PRN MC SEE COMMENTS; Start 04/24/19 at 17:15; Stop 04/26/19 at 11:06; Status DC Darbepoetin Reinaldo (Aranesp) 60 mcg WEEKLYHS SQ Last administered on 04/25/19at 22:34; Start 04/25/19 at 21:00 Bacitracin 43549 unit/Sodium Chloride 500 ml @ 500 mls/hr 1X ONCE IRR ; Start 04/26/19 at 06:00; Stop 04/26/19 at 06:59; Status Cancel Ondansetron HCl (Zofran) 4 mg PRN Q6HRS PRN IV NAUSEA/VOMITING; Start 04/26/19 at 07:00; Stop 04/27/19 at 06:59; Status DC Morphine Sulfate (Morphine Sulfate) 1 mg PRN Q10MIN PRN IV SEVERE PAIN 7-10; Start 04/26/19 at 07:00; Stop 04/27/19 at 06:59; Status DC Ringer's Solution 1,000 ml @ 30 mls/hr Q24H IV ; Start 04/26/19 at 07:00; Stop 04/26/19 at 18:59; Status DC Hydromorphone HCl (Dilaudid) 0.5 mg PRN Q10MIN PRN IV SEV PAIN, Second choice; Start 04/26/19 at 07:00; Stop 04/27/19 at 06:59; Status DC Ondansetron HCl (Zofran) 4 mg PRN Q6HRS PRN IV NAUSEA/VOMITING; Start 04/26/19 at 07:00; Stop 04/27/19 at 06:59; Status UNV Morphine Sulfate (Morphine Sulfate) 1 mg PRN Q10MIN PRN IV SEVERE PAIN 7-10; Start 04/26/19 at 07:00; Stop 04/27/19 at 06:59; Status UNV Ringer's Solution 1,000 ml @ 30 mls/hr Q24H IV ; Start 04/26/19 at 07:00; Stop 04/26/19 at 18:59; Status UNV Hydromorphone HCl (Dilaudid) 0.5 mg PRN Q10MIN PRN IV SEV PAIN, Second choice; Start 04/26/19 at 07:00; Stop 04/27/19 at 06:59; Status UNV Sodium Chloride 1,000 ml @ 1,000 mls/hr Q1H PRN IV hypotension; Start 04/26/19 at 07:17; Stop 04/26/19 at 13:16; Status DC Sodium Chloride 1,000 ml @ 400 mls/hr Q2H30M PRN IV PATENCY; Start 04/26/19 at 07:17; Stop 04/26/19 at 19:16; Status DC Info (PHARMACY MONITORING -- do not chart) 1 each PRN DAILY PRN MC SEE COMMENTS; Start 04/26/19 at 07:30; Status UNV Info (PHARMACY MONITORING -- do not chart) 1 each PRN DAILY PRN MC SEE COMMENTS; Start 04/26/19 at 07:30 Lidocaine HCl 48 ml/Sodium Bicarbonate 12 meq/Miscellaneous 60 ml @ 60 mls/hr 1X ONCE ID ; Start 04/27/19 at 06:00; Stop 04/27/19 at 06:59; Status DC Ondansetron HCl (Zofran) 4 mg PRN Q6HRS PRN IV NAUSEA/VOMITING; Start 04/27/19 at 07:00; Stop 04/28/19 at 06:59; Status DC Fentanyl Citrate (Fentanyl 2ml Vial) 25 mcg PRN Q5MIN PRN IV MILD PAIN 1-3; Start 04/27/19 at 07:00; Stop 04/28/19 at 06:59; Status DC Fentanyl Citrate (Fentanyl 2ml Vial) 50 mcg PRN Q5MIN PRN IV MODERATE TO SEVERE PAIN Last administered on 04/27/19at 11:55; Start 04/27/19 at 07:00; Stop 04/28/19 at 06:59; Status DC Morphine Sulfate (Morphine Sulfate) 1 mg PRN Q10MIN PRN IV SEVERE PAIN 7-10; Start 04/27/19 at 07:00; Stop 04/28/19 at 06:59; Status DC Hydromorphone HCl (Dilaudid) 0.5 mg PRN Q10MIN PRN IV SEV PAIN, Second choice; Start 04/27/19 at 07:00; Stop 04/28/19 at 06:59; Status DC Prochlorperazine Edisylate (Compazine) 5 mg PACU PRN PRN IV NAUSEA, MRX1; Start 04/27/19 at 07:00; Stop 04/28/19 at 06:59; Status DC Sodium Chloride 1,000 ml @ 0 mls/hr Q0M IV ; Start 04/27/19 at 07:00; Stop 04/29/19 at 11:09; Status DC Propofol 20 ml @ As Directed STK-MED ONCE IV ; Start 04/27/19 at 08:51; Stop 04/27/19 at 08:52; Status DC Famotidine (Pepcid Vial) 20 mg STK-MED ONCE .ROUTE ; Start 04/27/19 at 08:51; Stop 04/27/19 at 08:52; Status DC Lidocaine HCl (Lidocaine Pf 2% Vial) 5 ml STK-MED ONCE .ROUTE ; Start 04/27/19 at 08:51; Stop 04/27/19 at 08:52; Status DC Ondansetron HCl (Zofran) 4 mg STK-MED ONCE .ROUTE ; Start 04/27/19 at 08:51; Stop 04/27/19 at 08:52; Status DC Fentanyl Citrate (Fentanyl 2ml Vial) 100 mcg STK-MED ONCE .ROUTE ; Start 04/27/19 at 09:16; Stop 04/27/19 at 09:17; Status DC Dexamethasone Sodium Phosphate (Decadron) 4 mg STK-MED ONCE .ROUTE ; Start 04/27/19 at 09:48; Stop 04/27/19 at 09:49; Status DC Ephedrine Sulfate (ePHEDrine PF IN SALINE SYRINGE) 50 mg STK-MED ONCE IV ; Start 04/27/19 at 09:53; Stop 04/27/19 at 09:54; Status DC Rocuronium [place] (Zemuron) 50 mg STK-MED ONCE .ROUTE ; Start 04/27/19 at 10:10; Stop 04/27/19 at 10:11; Status DC Lidocaine HCl (Xylocaine 1% Pf 30ml Vial) 60 ml STK-MED ONCE INJ ; Start 04/27/19 at 10:01; Stop 04/27/19 at 10:02; Status Cancel Sevoflurane (Ultane) 60 ml STK-MED ONCE IH ; Start 04/27/19 at 11:04; Stop 04/27/19 at 11:05; Status DC Hydromorphone HCl (Dilaudid) 0.2 mg PRN Q4HRS PRN IVP PAIN; Start 04/27/19 at 11:30; Stop 04/28/19 at 13:10; Status DC Hydromorphone HCl (Dilaudid) 2 mg PRN Q4HRS PRN PO SEVERE PAIN Last administered on 04/28/19at 11:52; Start 04/27/19 at 11:30; Stop 04/28/19 at 13:10; Status DC Lidocaine HCl (Xylocaine-Mpf 1% 2ml Vial) 2 ml STK-MED ONCE .ROUTE ; Start 04/28/19 at 07:56; Stop 04/28/19 at 07:57; Status DC Sodium Chloride 1,000 ml @ 1,000 mls/hr Q1H PRN IV hypotension; Start 04/28/19 at 08:25; Stop 04/28/19 at 14:24; Status DC Diphenhydramine HCl (Benadryl) 25 mg 1X PRN PRN IV ITCHING; Start 04/28/19 at 08:30; Stop 04/29/19 at 08:29; Status DC Diphenhydramine HCl (Benadryl) 25 mg 1X PRN PRN IV ITCHING; Start 04/28/19 at 08:30; Stop 04/29/19 at 08:29; Status DC Sodium Chloride 1,000 ml @ 400 mls/hr Q2H30M PRN IV PATENCY; Start 04/28/19 at 08:25; Stop 04/28/19 at 20:24; Status DC Info (PHARMACY MONITORING -- do not chart) 1 each PRN DAILY PRN MC SEE COMMENTS; Start 04/28/19 at 08:30 Tramadol HCl (Ultram) 50 mg PRN Q6HRS PRN PO MODERATE PAIN Last administered on 04/30/19at 08:47; Start 04/29/19 at 11:15 Lactulose (Lactulose) 20 gm Q2H PO Last administered on 04/29/19at 15:30; Start 04/29/19 at 13:00; Stop 04/29/19 at 15:01; Status DC Active Scripts Active Cephalexin 250 Mg Capsule 500 Mg PO BID 14 Days Ondansetron Odt (Ondansetron) 4 Mg Tab.rapdis 4 Mg PO Q6HRS PRN Metoclopramide Hcl 5 Mg Tablet 5 Mg PO TIDACHC Humalog (Insulin Lispro) 100 Unit/1 Ml Insuln.pen 0 Units SQ TIDWMEALS 30 Days BG 150-199= 1 units 200-299= 2 units 300-399= 4 units 400-499= 6 units ac tid sliding scale Reported Zofran (Ondansetron Hcl) 4 Mg Tablet 1 Tab PO Q6HRS Vitamin D3 (Cholecalciferol (Vitamin D3)) 1,000 Unit Tablet 1 Tab PO DAILY Vitamin B-12 (Cyanocobalamin (Vitamin B-12)) 1,000 Mcg Tablet 1 Tab PO DAILY Tylenol (Acetaminophen) 325 Mg Tablet 325 Mg PO QID Tylenol (Acetaminophen) 325 Mg Tablet 1 Tab PO PRN Q4HRS Tramadol Hcl 50 Mg Tablet 25 Mg PO Q6HRS PRN Senna (Sennosides) 8.6 Mg Tablet 8.6 Mg PO PRN DAILY PRN 2 tabs Renvela (Sevelamer Carbonate) 800 Mg Tablet 800 Mg PO TIDWMEALS Renal Caps Softgel (Folic Acid/Vitamin B Comp W-C) 1 Mg Capsule 1 Mg PO DAILY Reglan (Metoclopramide Hcl) 10 Mg Tablet 5 Mg PO TID Protonix (Pantoprazole Sodium) 20 Mg Tablet.dr 1 Tab PO DAILY Probiotic (Lactobacillus Acidophilus) 1 Each Capsule 1 Each PO BID Milk Of Magnesia (Magnesium Hydroxide) 400 Mg/5 Ml Oral.susp 400 Mg PO PRN DAILY PRN Lipitor (Atorvastatin Calcium) 40 Mg Tablet 1 Tab PO QHS Skin Treatment (Ammonium Lactate) 225 Gm Lotion 225 Gm TP BID Humalog (Insulin Lispro) 100 Unit/1 Ml Insuln.pen 100 Unit SQ TIDBFRMEAL 150-199=1 unit 200-299=2 units 300-399=4 units 100-499=6 units Duoneb 0.5-3(2.5) Mg/3 Ml (Albuterol/Ipratropium) 3 Ml Ampul.neb 3 Ml NEB PRN Q4HRS PRN Clopidogrel (Clopidogrel Bisulfate) 75 Mg Tablet 1 Tab PO DAILY Clindamycin Hcl 150 Mg Capsule 150 Mg PO TID Dulcolax (Bisacodyl) 10 Mg Supp.rect 10 Mg RC PRN DAILY PRN Benadryl Allergy (Diphenhydramine Hcl) 12.5 Mg/5 Ml Liquid 10 Ml PO PRN Q6-8HRS Aspir-Low (Aspirin) 81 Mg Tablet.dr 1 Tab PO DAILY Allopurinol 100 Mg Tablet 1 Tab PO DAILY Tramadol Hcl 50 Mg Tablet 0.5 Mg PO PRN Q6HRS PRN Senna (Sennosides) 8.6 Mg Tablet 2 Tab PO PRN DAILY PRN Bisacodyl 10 Mg Supp.rect 10 Mg RC PRN DAILY PRN Protonix (Pantoprazole Sodium) 20 Mg Tablet.dr 1 Tab PO DAILY Duoneb 0.5-3(2.5) Mg/3 Ml (Albuterol/Ipratropium) 3 Ml Ampul.neb 3 Ml NEB PRN Q4HRS PRN Milk Of Magnesia (Magnesium Hydroxide) 400 Mg/5 Ml Oral.susp 400 Mg PO PRN DAILY PRN Lac-Hydrin Five (Ammonium Lactate) 226 Gm Lotion 226 Gm TP BID Benadryl Allergy (Diphenhydramine Hcl) 12.5 Mg/5 Ml Liquid 25 Mg PO PRN Q6HRS PRN Vitamin B-12 (Cyanocobalamin (Vitamin B-12)) 1,000 Mcg Tablet 1 Tab PO DAILY Allopurinol 100 Mg Tablet 1 Tab PO DAILY Renal Caps Softgel (Folic Acid/Vitamin B Comp W-C) 1 Mg Capsule 1 Cap PO DAILY Acidophilus Lactobacilli (Lactobacillus Acidophilus) 1 Each Capsule 1 Each PO BID Renvela (Sevelamer Carbonate) 800 Mg Tablet 800 Mg PO TIDWMEALS Tylenol (Acetaminophen) 325 Mg Tablet 1 Tab PO PRN Q4HRS Aspirin 81 Mg Tab.chew 81 Mg PO DAILY Lipitor (Atorvastatin Calcium) 40 Mg Tablet 40 Mg PO HS Clopidogrel (Clopidogrel Bisulfate) 75 Mg Tablet 75 Mg PO DAILY Vitamin D-3 (Cholecalciferol (Vitamin D3)) 2,000 Unit Capsule 1,000 Unit PO DAILY Vitals/I & O Vital Sign - Last 24 Hours 04/29/19 04/29/19 04/29/19 04/29/19 11:00 15:00 19:00 20:00 Temp 96.4 97.7 98.3 96.4 97.7 98.3 Pulse 75 68 62 Resp 18 20 18 B/P (MAP) 143/37 (72) 137/39 (71) 134/58 (83) Pulse Ox 97 96 97 O2 Delivery Room Air Room Air Room Air Room Air O2 Flow Rate 8.0 04/29/19 04/30/19 04/30/19 04/30/19 23:00 03:00 07:00 07:20 Temp 98.4 96.8 98.4 98.4 96.8 98.4 Pulse 63 61 60 Resp 18 16 20 B/P (MAP) 127/74 (91) 124/55 (78) 172/30 (77) Pulse Ox 94 O2 Delivery Room Air Room Air Room Air Room Air 04/30/19 04/30/19 08:47 09:49 O2 Delivery Room Air Room Air Intake and Output 04/29/19 04/29/19 04/30/19 14:59 22:59 06:59 Intake Total 360 ml 400 ml 400 ml Output Total 0 ml Balance 360 ml 400 ml 400 ml KIMI TIDWELL MD Apr 30, 2019 10:27
[2019-04-30] MEDS ORDERED: TRAM50TA PO (10:34)
[2019-04-30] MEDS ORDERED: SENN-80 PO (10:34)
--- NOTE | 2019-04-30 10:38 | SNU/HH DC ---
DISCHARGE ORDERS DISCHARGE INFORMATION: DISCHARGE DATE: May 01, 2019 FINAL DIAGNOSIS necrotic right foot wound. right BKA CONDITION ON DISCHARGE: Stable CODE STATUS: Code Status: Full POST DISCHARGE ORDERS: WEIGHT BEARING STATUS: Other, see below (NWB RLE) DIET AFTER DISCHARGE: Renal (ADA renal diet) WOUND/INCISION CARE: Other, see below (continue same wound care at [facility]) FOLLOW-UP: PHYSICIAN FOLLOW-UP: dr. tidwell at residential ADDITIONAL FOLLOW-UP: dr. Arteaga in 2 weeks. please arrange appt DISCHARGE MEDICATIONS: Home Meds Active Scripts Tramadol Hcl (TRAMADOL HCL) 50 Mg Tablet, 50 MG PO PRN Q6HRS PRN for MODERATE PAIN, #30 TAB Prov:KIMI TIDWELL MD 04/30/19 Sennosides (SENNA) 8.6 Mg Tablet, 2 TAB PO PRN DAILY PRN for CONSTIPATION for 30 Days, TAB Prov:KIMI TIDWELL MD 04/30/19 Ondansetron (ONDANSETRON ODT) 4 Mg Tab.rapdis, 4 MG PO Q6HRS PRN for NAUSEA/VOMITING, #30 TAB Prov:KIMI TIDWELL MD 03/16/19 Metoclopramide Hcl (METOCLOPRAMIDE HCL) 5 Mg Tablet, 5 MG PO TIDACHC for nausea, #100 TAB Prov:KIMI TIDWELL MD 01/05/19 Insulin Lispro (HUMALOG) 100 Unit/1 Ml Insuln.pen, 0 UNITS SQ TIDWMEALS for diabetes for 30 Days, EACH BG 150-199= 1 units 200-299= 2 units 300-399= 4 units 400-499= 6 units ac tid sliding scale Prov:KIMI TIDWELL MD 11/11/18 Reported Medications Cholecalciferol (Vitamin D3) (VITAMIN D3) 1,000 Unit Tablet, 1 TAB PO DAILY for supplement, #30 TAB 5 Refills 04/24/19 Cyanocobalamin (Vitamin B-12) (VITAMIN B-12) 1,000 Mcg Tablet, 1 TAB PO DAILY for supplement, #30 TAB 2 Refills 04/24/19 Sennosides (SENNA) 8.6 Mg Tablet, 8.6 MG PO PRN DAILY PRN for CONSTIPATION, TAB 2 tabs 04/24/19 Sevelamer Carbonate (RENVELA) 800 Mg Tablet, 800 MG PO TIDWMEALS for esrd, TAB 04/24/19 Folic Acid/Vitamin B Comp W-C (RENAL CAPS SOFTGEL) 1 Mg Capsule, 1 MG PO DAILY for supplement, CAP 04/24/19 Metoclopramide Hcl (REGLAN) 10 Mg Tablet, 5 MG PO TID for nausea, #120 TAB 0 Refills 04/24/19 Pantoprazole Sodium (PROTONIX) 20 Mg Tablet.dr, 1 TAB PO DAILY for gerd, #30 TAB 04/24/19 Lactobacillus Acidophilus (PROBIOTIC) 1 Each Capsule, 1 EACH PO BID for supplement, CAP 04/24/19 Magnesium Hydroxide (MILK OF MAGNESIA) 400 Mg/5 Ml Oral.susp, 400 MG PO PRN DAILY PRN for CONSTIPATION, MISC 04/24/19 Atorvastatin Calcium (LIPITOR) 40 Mg Tablet, 1 TAB PO QHS for hyperlipidemia, #90 TAB 1 Refill 04/24/19 Insulin Lispro (HUMALOG) 100 Unit/1 Ml Insuln.pen, 100 UNIT SQ TIDBFRMEAL for dm, SYR 150-199=1 unit 200-299=2 units 300-399=4 units 100-499=6 units 04/24/19 Clopidogrel Bisulfate (CLOPIDOGREL) 75 Mg Tablet, 1 TAB PO DAILY for dvt, #90 TAB 1 Refill 04/24/19 Bisacodyl (DULCOLAX) 10 Mg Supp.rect, 10 MG RC PRN DAILY PRN for CONSTIPATION, SUPP.RECT 0 Refills 04/24/19 Ipratropium/Albuterol Sulfate (DUONEB 0.5-3(2.5) MG/3 ML) 3 Ml Ampul.neb, 3 ML NEB PRN Q4HRS PRN for WHEEZING, EACH 03/13/19 Ammonium Lactate (Lac-Hydrin Five) 226 Gm Lotion, 226 GM TP BID for itching, MISC 03/13/19 Diphenhydramine Hcl (BENADRYL ALLERGY) 12.5 Mg/5 Ml Liquid, 25 MG PO PRN Q6HRS PRN for ITCHING, LIQUID 03/13/19 Allopurinol (ALLOPURINOL) 100 Mg Tablet, 1 TAB PO DAILY for gout, #90 TAB 3 Refills 11/24/18 Acetaminophen (TYLENOL) 325 Mg Tablet, 1 TAB PO PRN Q4HRS for pain/temp, #30 TAB 11/24/18 Aspirin (ASPIRIN) 81 Mg Tab.chew, 81 MG PO DAILY for prophylaxis, TAB.CHEW 11/24/18 Discontinued Reported Medications Acetaminophen (TYLENOL) 325 Mg Tablet, 325 MG PO QID for pain, TAB 04/24/19 Acetaminophen (TYLENOL) 325 Mg Tablet, 1 TAB PO PRN Q4HRS for pain or inc temp, #30 TAB 04/24/19 Ammonium Lactate (SKIN TREATMENT) 225 Gm Lotion, 225 GM TP BID for skin integrity, MISC 04/24/19 Aspirin (ASPIR-LOW) 81 Mg Tablet.dr, 1 TAB PO DAILY for atherosclerotic heart disease, #30 TAB 3 Refills 04/24/19 Allopurinol (ALLOPURINOL) 100 Mg Tablet, 1 TAB PO DAILY for gout, #30 TAB 5 Refills 04/24/19 Bisacodyl (BISACODYL) 10 Mg Supp.rect, 10 MG RC PRN DAILY PRN for CONSTIPATION, SUPP.RECT 0 Refills 04/11/19 Pantoprazole Sodium (PROTONIX) 20 Mg Tablet.dr, 1 TAB PO DAILY for GERD, #30 TAB 04/11/19 Magnesium Hydroxide (MILK OF MAGNESIA) 400 Mg/5 Ml Oral.susp, 400 MG PO PRN DAILY PRN for CONSTIPATION, MISC 03/13/19 Cyanocobalamin (Vitamin B-12) (VITAMIN B-12) 1,000 Mcg Tablet, 1 TAB PO DAILY for supplement, #30 TAB 2 Refills 11/24/18 Folic Acid/Vitamin B Comp W-C (RENAL CAPS SOFTGEL) 1 Mg Capsule, 1 CAP PO DAILY for renal vitamin, #90 CAP 3 Refills 11/24/18 Lactobacillus Acidophilus (Acidophilus Lactobacilli) 1 Each Capsule, 1 EACH PO BID for prophylaxis, CAP 11/24/18 Sevelamer Carbonate (RENVELA) 800 Mg Tablet, 800 MG PO TIDWMEALS for ESRD, TAB 11/24/18 Atorvastatin Calcium (LIPITOR) 40 Mg Tablet, 40 MG PO HS for FOR CHOLESTEROL, #30 TAB 0 Refills 11/24/18 Clopidogrel Bisulfate (CLOPIDOGREL) 75 Mg Tablet, 75 MG PO DAILY for TO PREVENT BLOOD CLOTS, #30 TAB 0 Refills 11/24/18 Cholecalciferol (Vitamin D3) (VITAMIN D-3) 2,000 Unit Capsule, 1000 UNIT PO DAILY, CAP 09/13/17 Ondansetron Hcl (ZOFRAN) 4 Mg Tablet, 1 TAB PO Q6HRS for nausea and vomiting, #20 TAB 04/24/19 Tramadol Hcl (TRAMADOL HCL) 50 Mg Tablet, 25 MG PO Q6HRS PRN for PAIN, TAB 04/24/19 Ipratropium/Albuterol Sulfate (DUONEB 0.5-3(2.5) MG/3 ML) 3 Ml Ampul.neb, 3 ML NEB PRN Q4HRS PRN for DYSPEPSIA, EACH 04/24/19 Clindamycin Hcl (CLINDAMYCIN HCL) 150 Mg Capsule, 150 MG PO TID for foot infection, CAP 04/24/19 Diphenhydramine Hcl (BENADRYL ALLERGY) 12.5 Mg/5 Ml Liquid, 10 ML PO PRN Q6-8HRS for itching, #120 ML 04/24/19 Tramadol Hcl (TRAMADOL HCL) 50 Mg Tablet, 0.5 MG PO PRN Q6HRS PRN for PAIN, TAB 0 Refills 04/11/19 Discontinued Scripts Cephalexin (CEPHALEXIN) 250 Mg Capsule, 500 MG PO BID for post skin graft for 14 Days, #28 CAP Prov:KIMI TIDWELL MD 03/16/19 KIMI TIDWELL MD Apr 30, 2019 10:38
--- NOTE | 2019-04-30 10:44 | PDOC ---
Provider Note Provider Note discharge summary dictated # [id number] KIMI TIDWELL MD Apr 30, 2019 10:44
[2019-04-30 11:00] VITALS: BP 155/26
--- NOTE | 2019-04-30 13:59 | PDOC ---
Infectious Disease Note Subjective Subjective Tired, Pain off and on Denies N/V/F/C ROS ROS per HPI Vital Sign Vital Signs Vital Signs Date Time Temp Pulse Resp B/P (MAP) Pulse Ox O2 Delivery O2 Flow Rate FiO2 04/30/19 11:00 98.7 65 18 155/26 (69) 94 Room Air 98.7 04/29/19 20:00 8.0 Physical Exam PHYSICAL EXAM GENERAL: Propped up in bed, alert, NAD HEENT: Oral mucosa dry NECK: Supple LUNGS: Clear bilaterally. No wheezing. HEART: S1, S2. PPM ABDOMEN: Obese, soft, nontender EXTREMITIES: No gross edema. RUE-AV fistula. Right leg bandaged. Left heel protector in place. NEUROLOGIC: Alert, responds appropriately DERMATOLOGIC: Warm, no generalized rash. PIV Labs Lab Laboratory Tests Test 04/29/19 16:57 04/29/19 21:12 04/30/19 05:30 04/30/19 07:32 Glucose (Fingerstick) 134 mg/dL (70-99) 115 mg/dL (70-99) 95 mg/dL (70-99) White Blood Count 10.1 x10^3/uL (4.0-11.0) Red Blood Count 3.78 x10^6/uL (4.30-5.70) Hemoglobin 10.7 g/dL (13.0-17.5) Hematocrit 32.9 % (39.0-53.0) Mean Corpuscular Volume 87 fL (79-100) Mean Corpuscular Hemoglobin 28 pg (25-35) Mean Corpuscular Hemoglobin Concent 33 g/dL (31-37) Red Cell Distribution Width 18.3 % (11.5-14.5) Platelet Count 307 x10^3/uL (140-400) Neutrophils (%) (Auto) 76 % (31-73) Lymphocytes (%) (Auto) 13 % (24-48) Monocytes (%) (Auto) 6 % (0-9) Eosinophils (%) (Auto) 5 % (0-3) Basophils (%) (Auto) 1 % (0-3) Neutrophils # (Auto) 7.7 x10^3uL (1.8-7.7) Lymphocytes # (Auto) 1.3 x10^3/uL (1.0-4.8) Monocytes # (Auto) 0.6 x10^3/uL (0.0-1.1) Eosinophils # (Auto) 0.5 x10^3/uL (0.0-0.7) Basophils # (Auto) 0.1 x10^3/uL (0.0-0.2) Test 04/30/19 11:20 Glucose (Fingerstick) 138 mg/dL (70-99) Micro Objective Assessment Right lateral necrotic foot wound. 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 Left heel superficial wound not infected DM with neuropathy ESRD on HD Anemia of chronic disease Chronic lymphedema Chronic venous stasis PAD Plan Plan of Care Cont Zosyn and Zyvox - wean off Pain management per primary D/w nursing Attending Co-Sign Attending Co-Sign The patient was seen and interviewed as well as examined at the bedside. The chart was reviewed. The case was discussed. Agree with the plan of care. SHAVON KNAPP APRN Apr 30, 2019 13:59 JAYY SUÁREZ MD Apr 30, 2019 15:39
--- NOTE | 2019-04-30 14:02 | DS ---
DATE OF DISCHARGE: 04/30/2019 DATE OF ANTICIPATED DISMISSAL: 05/01/2019. CONSULTANTS: Dr. Arteaga, Dr. James, Dr. Ashley Muir and Dr. Rose. PROCEDURE: Right below-knee amputation. FINAL DIAGNOSES: 1. Infected necrotic right foot wound. 2. Peripheral arterial disease. 3. History of right transmetatarsal amputation with skin graft. 4. End-stage renal disease, on hemodialysis. 5. Obstructive sleep apnea. 6. Diabetes mellitus type 2 with peripheral neuropathy. 7. Anemia of chronic disease. 8. Hyperlipidemia. 9. Morbid obesity. 10. Phantom limb syndrome. HOSPITAL COURSE: The patient is a 78-year-old -[place] male resident of a long term with end-stage renal disease, on hemodialysis Wednesday, Wednesday and Fridays; with diabetes mellitus type 2 with peripheral neuropathy and peripheral arterial disease, anemia of chronic disease, hyperlipidemia, morbid obesity with a recent right transmetatarsal amputation and skin graft to that area, admitted to [facility] on 04/24/2019 with an infected necrotic right lateral foot wound. Over the last couple of days, he was noted to have some foul discharge from his right foot wound as he developed an increasing size right lateral foot wound. He was seen by Wound Care and they recommended admitting him to [facility] on 04/24/2019. The patient was seen by Dr. Arteaga in consultation and he recommended a right below-knee amputation. The patient was also seen by the Infectious Disease doctor and treated with IV antibiotics. He was treated with Zyvox and Zosyn. He received hemodialysis and he was seen by Dr. James and Dr. Bear in consultation. Dr. Byers saw the patient postop and recommended that the patient can be transferred back to the long term when medically stable. He tolerated the procedure well, had some phantom limb pain. His tramadol was increased from 25 to 50 mg q.i.d. and Tylenol was kept at 325 mg q.i.d. and every 4 hours p.r.n., and he was much more comfortable. It is anticipated that he will be dismissed back to the long term after hemodialysis on 05/01/2019 and will be dismissed on Plavix 75 mg every day, metoclopramide 5 mg before meals t.i.d., Humalog insulin sliding scale low dose as written before meals t.i.d., vitamin D 1000 units every day, Protonix 20 mg every day, aspirin 81 mg every day, Renvela 800 mg t.i.d. with meals, Krista-Beatriz 1 every day, vitamin B12 at 1000 mcg every day, probiotic one tablet b.i.d., allopurinol 100 mg every day, atorvastatin 40 mg at bedtime, Tylenol 325 mg 1 tablet q.i.d. and every 4 hours p.r.n., Zofran 4 mg p.o. every 6 hours p.r.n., tramadol was increased to 50 mg p.o. every 6 hours p.r.n. He is currently on IV antibiotics, Zyvox and Zosyn, and these should be descaled per the Infectious Disease doctor and hopefully will be off by the time he is dismissed after hemodialysis on Wednesday back to the long term. He is nonweightbearing to the right lower extremity and will be dismissed on a diabetic renal diet. He will be dialyzed Mondays, Wednesdays, and Fridays. He will follow up with Dr. Arteaga in the office in about 2 weeks. KIMI TIDWELL MD DR: LOBO/dianna JOB#: [id number] / [id number]
[2019-04-30 15:00] VITALS: BP 152/30
[2019-04-30 19:00] VITALS: BP 136/63
[2019-04-30] MEDS: ATORVASTATIN CALCIUM 40 MG TABLET. PO SCH (22:55)
[2019-04-30 23:00] VITALS: BP 113/60
[2019-05-01 03:00] VITALS: BP 128/60
[2019-05-01] MEDS: traMADol 50 MG TABLET PO PRN ×2 (06:35→12:47)
[2019-05-01] MEDS: PANTOPRAZOLE 40 MG TABLET.DR. PO SCH (06:35)
[2019-05-01] MEDS: METOCLOPRAMIDE 5 MG TABLET. PO SCH ×3 (06:35→17:09)
[2019-05-01] MEDS ORDERED: IV NORMAL SALINE 1000ML BAG 1,000 ML IV PRN ×2 (07:33)
[2019-05-01] MEDS ORDERED: DIALYSIS PATIENT. MC PRN ×2 (07:45)
[2019-05-01] MEDS ORDERED: ALBUMIN HUMAN 25% 200 ML IV PRN (07:45)
[2019-05-01 07:49] LABS: BASO # 0.1 x10^3/uL (0.0-0.2); BASO % 1 % (0-3); EOS # 0.6 x10^3/uL (0.0-0.7); EOS % 5 % (0-3); HEMATOCRIT 30.8 % (39.0-53.0); HEMOGLOBIN 9.8 g/dL (13.0-17.5); LYMPH # 1.4 x10^3/uL (1.0-4.8); LYMPH % 13 % (24-48); MEAN CORPUSCULAR HEMOGLOBIN 28 pg (25-35); MEAN CORPUSCULAR HGB CONC 32 g/dL (31-37); MEAN CORPUSCULAR VOLUME 87 fL (79-100); MONO # 0.5 x10^3/uL (0.0-1.1); MONO % 5 % (0-9); NEUT # 8.3 x10^3uL (1.8-7.7); NEUT % 77 % (31-73); PLATELET COUNT 290 x10^3/uL (140-400); RED BLOOD COUNT 3.53 x10^6/uL (4.30-5.70); RED CELL DISTRIBUTION WIDTH 17.9 % (11.5-14.5); WHITE BLOOD COUNT 10.8 x10^3/uL (4.0-11.0)
[2019-05-01] MEDS: INSULIN LISPRO 300 UNITS/3 ML INSULN.PEN. SQ SCH ×3 (08:00→17:15)
[2019-05-01] MEDS: SEVELAMER CARBONATE 800 MG TABLET. PO SCH ×3 (08:00→17:09)
[2019-05-01 08:04] LABS: CALCIUM 8.2 mg/dL (8.5-10.1); CREATININE 6.4 mg/dL (0.7-1.3); GFR 10.3
[2019-05-01] MEDS: ACETAMINOPHEN 325 MG TABLET. PO SCH ×4 (09:00→21:09)
--- NOTE | 2019-05-01 09:34 | NUR ---
SW following for discharge planning. Discussed with RN, pt ready to discharge back to [facility] today. SW faxed dc orders. Transportation set up for 1500. No further SW needs. RN notified.
--- NOTE | 2019-05-01 10:02 | PDOC ---
PROGRESS NOTES Subjective Subjective seen during hemodialysis. feels well. no complaints. lab reviewed. Objective Objective Vital Signs Date Time Temp Pulse Resp B/P (MAP) Pulse Ox O2 Delivery O2 Flow Rate FiO2 05/01/19 07:00 Room Air 8.0 05/01/19 03:00 98.6 62 20 128/60 (82) 97 98.6 Intake and Output 05/01/19 06:59 Intake Total 250 ml Output Total 251 ml Balance -1 ml Intake Oral 250 ml Output Urine Total 250 ml Stool Total 1 ml # Bowel Movements 2 Physical Exam Abdomen: Soft, Other (obese) Heart: Normal S1, Normal S2 Extremities: No edema, Other (right BKA) General: Alert HEENT: Atraumatic Lungs: Clear to auscultation Neuro: Normal speech Psych/Mental Status: Mental status NL Skin: No rashes Assessment Assessment 1. 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 History of right transmetatarsal amputation with skin graft. 3. End-stage renal disease on hemodialysis. 4. Obstructive sleep apnea. 5. Diabetes mellitus type 2 with peripheral neuropathy. 6. Peripheral arterial disease. 7. Anemia of chronic disease. 8. Hyperlipidemia. 9. Morbid obesity. 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 Labs Laboratory Tests Test 04/29/19 11:06 04/29/19 16:57 04/29/19 21:12 04/30/19 05:30 Glucose (Fingerstick) 172 mg/dL (70-99) 134 mg/dL (70-99) 115 mg/dL (70-99) White Blood Count 10.1 x10^3/uL (4.0-11.0) Red Blood Count 3.78 x10^6/uL (4.30-5.70) Hemoglobin 10.7 g/dL (13.0-17.5) Hematocrit 32.9 % (39.0-53.0) Mean Corpuscular Volume 87 fL (79-100) Mean Corpuscular Hemoglobin 28 pg (25-35) Mean Corpuscular Hemoglobin Concent 33 g/dL (31-37) Red Cell Distribution Width 18.3 % (11.5-14.5) Platelet Count 307 x10^3/uL (140-400) Neutrophils (%) (Auto) 76 % (31-73) Lymphocytes (%) (Auto) 13 % (24-48) Monocytes (%) (Auto) 6 % (0-9) Eosinophils (%) (Auto) 5 % (0-3) Basophils (%) (Auto) 1 % (0-3) Neutrophils # (Auto) 7.7 x10^3uL (1.8-7.7) Lymphocytes # (Auto) 1.3 x10^3/uL (1.0-4.8) Monocytes # (Auto) 0.6 x10^3/uL (0.0-1.1) Eosinophils # (Auto) 0.5 x10^3/uL (0.0-0.7) Basophils # (Auto) 0.1 x10^3/uL (0.0-0.2) Test 04/30/19 07:32 04/30/19 11:20 04/30/19 17:02 04/30/19 20:35 Glucose (Fingerstick) 95 mg/dL (70-99) 138 mg/dL (70-99) 150 mg/dL (70-99) 152 mg/dL (70-99) Test 05/01/19 07:25 White Blood Count 10.8 x10^3/uL (4.0-11.0) Red Blood Count 3.53 x10^6/uL (4.30-5.70) Hemoglobin 9.8 g/dL (13.0-17.5) Hematocrit 30.8 % (39.0-53.0) Mean Corpuscular Volume 87 fL (79-100) Mean Corpuscular Hemoglobin 28 pg (25-35) Mean Corpuscular Hemoglobin Concent 32 g/dL (31-37) Red Cell Distribution Width 17.9 % (11.5-14.5) Platelet Count 290 x10^3/uL (140-400) Neutrophils (%) (Auto) 77 % (31-73) Lymphocytes (%) (Auto) 13 % (24-48) Monocytes (%) (Auto) 5 % (0-9) Eosinophils (%) (Auto) 5 % (0-3) Basophils (%) (Auto) 1 % (0-3) Neutrophils # (Auto) 8.3 x10^3uL (1.8-7.7) Lymphocytes # (Auto) 1.4 x10^3/uL (1.0-4.8) Monocytes # (Auto) 0.5 x10^3/uL (0.0-1.1) Eosinophils # (Auto) 0.6 x10^3/uL (0.0-0.7) Basophils # (Auto) 0.1 x10^3/uL (0.0-0.2) Sodium Level 139 mmol/L (136-145) Potassium Level 4.0 mmol/L (3.5-5.1) Chloride Level 101 mmol/L (98-107) Carbon Dioxide Level 27 mmol/L (21-32) Anion Gap 11 (6-14) Blood Urea Nitrogen 28 mg/dL (8-26) Creatinine 6.4 mg/dL (0.7-1.3) Estimated GFR (Cockcroft-Gault) 10.3 Glucose Level 104 mg/dL (70-99) Calcium Level 8.2 mg/dL (8.5-10.1) Laboratory Tests Test 04/30/19 11:20 04/30/19 17:02 04/30/19 20:35 05/01/19 07:25 Glucose (Fingerstick) 138 mg/dL (70-99) 150 mg/dL (70-99) 152 mg/dL (70-99) White Blood Count 10.8 x10^3/uL (4.0-11.0) Red Blood Count 3.53 x10^6/uL (4.30-5.70) Hemoglobin 9.8 g/dL (13.0-17.5) Hematocrit 30.8 % (39.0-53.0) Mean Corpuscular Volume 87 fL (79-100) Mean Corpuscular Hemoglobin 28 pg (25-35) Mean Corpuscular Hemoglobin Concent 32 g/dL (31-37) Red Cell Distribution Width 17.9 % (11.5-14.5) Platelet Count 290 x10^3/uL (140-400) Neutrophils (%) (Auto) 77 % (31-73) Lymphocytes (%) (Auto) 13 % (24-48) Monocytes (%) (Auto) 5 % (0-9) Eosinophils (%) (Auto) 5 % (0-3) Basophils (%) (Auto) 1 % (0-3) Neutrophils # (Auto) 8.3 x10^3uL (1.8-7.7) Lymphocytes # (Auto) 1.4 x10^3/uL (1.0-4.8) Monocytes # (Auto) 0.5 x10^3/uL (0.0-1.1) Eosinophils # (Auto) 0.6 x10^3/uL (0.0-0.7) Basophils # (Auto) 0.1 x10^3/uL (0.0-0.2) Sodium Level 139 mmol/L (136-145) Potassium Level 4.0 mmol/L (3.5-5.1) Chloride Level 101 mmol/L (98-107) Carbon Dioxide Level 27 mmol/L (21-32) Anion Gap 11 (6-14) Blood Urea Nitrogen 28 mg/dL (8-26) Creatinine 6.4 mg/dL (0.7-1.3) Estimated GFR (Cockcroft-Gault) 10.3 Glucose Level 104 mg/dL (70-99) Calcium Level 8.2 mg/dL (8.5-10.1) Microbiology 04/24/19 Anaerobic/Aerobic Culture - Final, Complete 04/24/19 Anaerobic Culture Result 1 (SIXTO) - Final, Complete 04/24/19 Aerobic Culture - Final, Complete 04/24/19 Aerobic Culture Result 1 (SIXTO) - Final, Complete 04/24/19 Aerobic Culture Result 2 (SIXTO) - Final, Complete 04/24/19 Antimicrobic Susceptibility - Final, Complete 04/24/19 Gram Stain - Final, Complete 04/24/19 Gram Stain Result 1 (SIXTO) - Final, Complete 04/24/19 Gram Stain Result 2 (SIXTO) - Final, Complete Medications Current Medications Linezolid/Dextrose 300 ml @ 300 mls/hr Q12HR IV Last administered on 04/30/19at 08:38; Start 04/24/19 at 13:30; Stop 04/30/19 at 13:58; Status DC Piperacillin Sod/ Tazobactam Sod 2.25 gm/Sodium Chloride 50 ml @ 100 mls/hr Q8HRS IV Last administered on 04/30/19at 06:30; Start 04/24/19 at 14:00; Stop 04/30/19 at 13:58; Status DC Magnesium Hydroxide (Milk Of Magnesia) 2,400 mg PRN DAILY PRN PO CONSTIPATION; Start 04/24/19 at 12:15 Ondansetron HCl (Zofran Odt) 4 mg PRN Q6HRS PRN PO NAUSEA/VOMITING, 1st CHOICE; Start 04/24/19 at 12:15 Tramadol HCl (Ultram) 25 mg PRN Q6HRS PRN PO MODERATE PAIN Last administered on 04/29/19 07:55; Start 04/24/19 at 12:15; Stop 04/29/19 at 11:09; Status DC Aspirin (Ecotrin) 81 mg DAILYWBKFT PO Last administered on 04/30/19 08:38; Start 04/24/19 at 13:30 Sevelamer Carbonate (Renvela) 800 mg TIDWMEALS PO Last administered on 04/30/19 17:19; Start 04/24/19 at 13:30 Cyanocobalamin (Vitamin B-12) 1,000 mcg DAILY PO Last administered on 04/30/19 08:37; Start 04/24/19 at 13:30 Allopurinol (Zyloprim) 100 mg DAILY PO Last administered on 04/30/19 08:38; Start 04/24/19 at 13:30 Atorvastatin Calcium (Lipitor) 40 mg QHS PO Last administered on 04/30/19 22:55; Start 04/24/19 at 21:00 Acetaminophen (Tylenol) 325 mg PRN QID PRN PO MILD PAIN / TEMP Last administered on 04/29/19 06:00; Start 04/24/19 at 12:15 Clopidogrel Bisulfate (Plavix) 75 mg DAILYWBKFT PO Last administered on 04/30/19 08:37; Start 04/24/19 at 13:30 Metoclopramide HCl (Reglan) 5 mg PRN BFRMEALHC PRN PO NAUSEA/VOMITING, 2nd CHOICE; Start 04/24/19 at 12:15 Vitamin D (Vitamin D3) 1,000 unit DAILY PO Last administered on 04/30/19 08:38; Start 04/24/19 at 13:30 Pantoprazole Sodium (Protonix) 40 mg DAILYAC PO Last administered on 6/3/19at 06:35; Start 04/24/19 at 13:30 Insulin Human Lispro (HumaLOG) 0-5 UNITS TIDWMEALS SQ Last administered on 04/29/19at 12:00; Start 04/24/19 at 17:00 Dextrose (Dextrose 50%-Water Syringe) 12.5 gm PRN Q15MIN PRN IV SEE COMMENTS; Start 04/24/19 at 12:15 Lactobacillus Rhamnosus (Culturelle) 1 cap BID PO Last administered on 04/30/19at 22:55; Start 04/24/19 at 13:30 Vitamin B Complex/ Vitamin C (Krista-Beartiz) 1 tab DAILY PO Last administered on 04/30/19at 08:38; Start 04/24/19 at 13:30 Piperacillin Sod/ Tazobactam Sod 2.25 gm/Sodium Chloride 50 ml @ 100 mls/hr Q8HRS IV ; Start 04/24/19 at 14:00; Status UNV Clopidogrel Bisulfate (Plavix) 75 mg DAILYWBKFT PO ; Start 04/25/19 at 08:00; Status UNV Metoclopramide HCl (Reglan) 5 mg TIDBFRMEAL PO Last administered on 05/01/19at 06:35; Start 04/24/19 at 16:30 Vitamin D (Vitamin D3) 1,000 unit DAILY PO ; Start 04/25/19 at 09:00; Status UNV Pantoprazole Sodium (Protonix) 20 mg DAILYAC PO ; Start 04/25/19 at 07:30; Status UNV Aspirin (Onesimo Aspirin) 81 mg DAILYWBKFT PO ; Start 04/25/19 at 08:00; Status UNV Sevelamer Carbonate (Renvela) 800 mg TIDWMEALS PO ; Start 04/24/19 at 17:00; Status UNV Cyanocobalamin (Vitamin B-12) 1,000 mcg DAILY PO ; Start 04/25/19 at 09:00; Status UNV Lactobacillus Rhamnosus (Culturelle) 1 cap BID PO ; Start 04/24/19 at 21:00; Status UNV Allopurinol (Zyloprim) 100 mg DAILY PO ; Start 04/25/19 at 09:00; Status UNV Atorvastatin Calcium (Lipitor) 40 mg QHS PO ; Start 04/24/19 at 21:00; Status UNV Acetaminophen (Tylenol) 325 mg PRN Q6HRS PRN PO MILD PAIN / TEMP; Start 04/24/19 at 12:15; Status UNV Acetaminophen (Tylenol) 325 mg QID PO Last administered on 04/30/19at 22:55; Start 04/24/19 at 13:30 Ondansetron HCl (Zofran Odt) 4 mg PRN Q6HRS PRN PO NAUSEA/VOMITING; Start 04/24/19 at 12:15; Status UNV Tramadol HCl (Ultram) 25 mg PRN Q6HRS PRN PO PAIN; Start 04/24/19 at 12:15; Status UNV Diphenhydramine HCl (Benadryl) 25 mg PRN Q6HRS PRN PO ITCHING; Start 04/24/19 at 12:15 Magnesium Hydroxide (Milk Of Magnesia) 2,400 mg PRN DAILY PRN PO CONSTIPATION; Start 04/24/19 at 12:15; Status UNV Insulin Human Lispro (HumaLOG) 0-6 UNITS BG 300-39... TIDWMEALS SQ ; Start 04/24/19 at 17:00; Status UNV Sodium Chloride 1,000 ml @ 1,000 mls/hr Q1H PRN IV hypotension; Start 04/24/19 at 17:00; Stop 04/24/19 at 23:00; Status DC Sodium Chloride 1,000 ml @ 400 mls/hr Q2H30M PRN IV PATENCY; Start 04/24/19 at 17:00; Stop 04/24/19 at 23:00; Status DC Info (PHARMACY MONITORING -- do not chart) 1 each PRN DAILY PRN MC SEE COMMENTS; Start 04/24/19 at 17:15; Status UNV Info (PHARMACY MONITORING -- do not chart) 1 each PRN DAILY PRN MC SEE COMMENTS; Start 04/24/19 at 17:15; Stop 04/26/19 at 11:06; Status DC Darbepoetin Reinaldo (Aranesp) 60 mcg WEEKLYHS SQ Last administered on 04/25/19at 22:34; Start 04/25/19 at 21:00 Bacitracin 41300 unit/Sodium Chloride 500 ml @ 500 mls/hr 1X ONCE IRR ; Start 04/26/19 at 06:00; Stop 04/26/19 at 06:59; Status Cancel Ondansetron HCl (Zofran) 4 mg PRN Q6HRS PRN IV NAUSEA/VOMITING; Start 04/26/19 at 07:00; Stop 04/27/19 at 06:59; Status DC Morphine Sulfate (Morphine Sulfate) 1 mg PRN Q10MIN PRN IV SEVERE PAIN 7-10; Start 04/26/19 at 07:00; Stop 04/27/19 at 06:59; Status DC Ringer's Solution 1,000 ml @ 30 mls/hr Q24H IV ; Start 04/26/19 at 07:00; Stop 04/26/19 at 18:59; Status DC Hydromorphone HCl (Dilaudid) 0.5 mg PRN Q10MIN PRN IV SEV PAIN, Second choice; Start 04/26/19 at 07:00; Stop 04/27/19 at 06:59; Status DC Ondansetron HCl (Zofran) 4 mg PRN Q6HRS PRN IV NAUSEA/VOMITING; Start 04/26/19 at 07:00; Stop 04/27/19 at 06:59; Status UNV Morphine Sulfate (Morphine Sulfate) 1 mg PRN Q10MIN PRN IV SEVERE PAIN 7-10; Start 04/26/19 at 07:00; Stop 04/27/19 at 06:59; Status UNV Ringer's Solution 1,000 ml @ 30 mls/hr Q24H IV ; Start 04/26/19 at 07:00; Stop 04/26/19 at 18:59; Status UNV Hydromorphone HCl (Dilaudid) 0.5 mg PRN Q10MIN PRN IV SEV PAIN, Second choice; Start 04/26/19 at 07:00; Stop 04/27/19 at 06:59; Status UNV Sodium Chloride 1,000 ml @ 1,000 mls/hr Q1H PRN IV hypotension; Start 04/26/19 at 07:17; Stop 04/26/19 at 13:16; Status DC Sodium Chloride 1,000 ml @ 400 mls/hr Q2H30M PRN IV PATENCY; Start 04/26/19 at 07:17; Stop 04/26/19 at 19:16; Status DC Info (PHARMACY MONITORING -- do not chart) 1 each PRN DAILY PRN MC SEE COMMENTS; Start 04/26/19 at 07:30; Status UNV Info (PHARMACY MONITORING -- do not chart) 1 each PRN DAILY PRN MC SEE COMMENTS; Start 04/26/19 at 07:30 Lidocaine HCl 48 ml/Sodium Bicarbonate 12 meq/Miscellaneous 60 ml @ 60 mls/hr 1X ONCE ID ; Start 04/27/19 at 06:00; Stop 04/27/19 at 06:59; Status DC Ondansetron HCl (Zofran) 4 mg PRN Q6HRS PRN IV NAUSEA/VOMITING; Start 04/27/19 at 07:00; Stop 04/28/19 at 06:59; Status DC Fentanyl Citrate (Fentanyl 2ml Vial) 25 mcg PRN Q5MIN PRN IV MILD PAIN 1-3; Start 04/27/19 at 07:00; Stop 04/28/19 at 06:59; Status DC Fentanyl Citrate (Fentanyl 2ml Vial) 50 mcg PRN Q5MIN PRN IV MODERATE TO SEVERE PAIN Last administered on 04/27/19at 11:55; Start 04/27/19 at 07:00; Stop 04/28/19 at 06:59; Status DC Morphine Sulfate (Morphine Sulfate) 1 mg PRN Q10MIN PRN IV SEVERE PAIN 7-10; Start 04/27/19 at 07:00; Stop 04/28/19 at 06:59; Status DC Hydromorphone HCl (Dilaudid) 0.5 mg PRN Q10MIN PRN IV SEV PAIN, Second choice; Start 04/27/19 at 07:00; Stop 04/28/19 at 06:59; Status DC Prochlorperazine Edisylate (Compazine) 5 mg PACU PRN PRN IV NAUSEA, MRX1; Start 04/27/19 at 07:00; Stop 04/28/19 at 06:59; Status DC Sodium Chloride 1,000 ml @ 0 mls/hr Q0M IV ; Start 04/27/19 at 07:00; Stop 04/29/19 at 11:09; Status DC Propofol 20 ml @ As Directed STK-MED ONCE IV ; Start 04/27/19 at 08:51; Stop 04/27/19 at 08:52; Status DC Famotidine (Pepcid Vial) 20 mg STK-MED ONCE .ROUTE ; Start 04/27/19 at 08:51; Stop 04/27/19 at 08:52; Status DC Lidocaine HCl (Lidocaine Pf 2% Vial) 5 ml STK-MED ONCE .ROUTE ; Start 04/27/19 at 08:51; Stop 04/27/19 at 08:52; Status DC Ondansetron HCl (Zofran) 4 mg STK-MED ONCE .ROUTE ; Start 04/27/19 at 08:51; Stop 04/27/19 at 08:52; Status DC Fentanyl Citrate (Fentanyl 2ml Vial) 100 mcg STK-MED ONCE .ROUTE ; Start 04/27/19 at 09:16; Stop 04/27/19 at 09:17; Status DC Dexamethasone Sodium Phosphate (Decadron) 4 mg STK-MED ONCE .ROUTE ; Start 04/27/19 at 09:48; Stop 04/27/19 at 09:49; Status DC Ephedrine Sulfate (ePHEDrine PF IN SALINE SYRINGE) 50 mg STK-MED ONCE IV ; Start 04/27/19 at 09:53; Stop 04/27/19 at 09:54; Status DC Rocuronium [place] (Zemuron) 50 mg STK-MED ONCE .ROUTE ; Start 04/27/19 at 10:10; Stop 04/27/19 at 10:11; Status DC Lidocaine HCl (Xylocaine 1% Pf 30ml Vial) 60 ml STK-MED ONCE INJ ; Start 04/27/19 at 10:01; Stop 04/27/19 at 10:02; Status Cancel Sevoflurane (Ultane) 60 ml STK-MED ONCE IH ; Start 04/27/19 at 11:04; Stop 04/27/19 at 11:05; Status DC Hydromorphone HCl (Dilaudid) 0.2 mg PRN Q4HRS PRN IVP PAIN; Start 04/27/19 at 11:30; Stop 04/28/19 at 13:10; Status DC Hydromorphone HCl (Dilaudid) 2 mg PRN Q4HRS PRN PO SEVERE PAIN Last administered on 04/28/19at 11:52; Start 04/27/19 at 11:30; Stop 04/28/19 at 13:10; Status DC Lidocaine HCl (Xylocaine-Mpf 1% 2ml Vial) 2 ml STK-MED ONCE .ROUTE ; Start 04/28/19 at 07:56; Stop 04/28/19 at 07:57; Status DC Sodium Chloride 1,000 ml @ 1,000 mls/hr Q1H PRN IV hypotension; Start 04/28/19 at 08:25; Stop 04/28/19 at 14:24; Status DC Diphenhydramine HCl (Benadryl) 25 mg 1X PRN PRN IV ITCHING; Start 04/28/19 at 08:30; Stop 04/29/19 at 08:29; Status DC Diphenhydramine HCl (Benadryl) 25 mg 1X PRN PRN IV ITCHING; Start 04/28/19 at 08:30; Stop 04/29/19 at 08:29; Status DC Sodium Chloride 1,000 ml @ 400 mls/hr Q2H30M PRN IV PATENCY; Start 04/28/19 at 08:25; Stop 04/28/19 at 20:24; Status DC Info (PHARMACY MONITORING -- do not chart) 1 each PRN DAILY PRN MC SEE COMMENTS; Start 04/28/19 at 08:30 Tramadol HCl (Ultram) 50 mg PRN Q6HRS PRN PO MODERATE PAIN Last administered on 05/01/19at 06:35; Start 04/29/19 at 11:15 Lactulose (Lactulose) 20 gm Q2H PO Last administered on 04/29/19at 15:30; Start 04/29/19 at 13:00; Stop 04/29/19 at 15:01; Status DC Sodium Chloride 1,000 ml @ 1,000 mls/hr Q1H PRN IV hypotension; Start 05/01/19 at 07:33; Stop 05/01/19 at 13:32 Albumin Human 200 ml @ 200 mls/hr 1X PRN PRN IV Hypotension; Start 05/01/19 at 07:45; Stop 05/01/19 at 13:44 Sodium Chloride 1,000 ml @ 400 mls/hr Q2H30M PRN IV PATENCY; Start 05/01/19 at 07:33; Stop 05/01/19 at 19:32 Info (PHARMACY MONITORING -- do not chart) 1 each PRN DAILY PRN MC SEE COMMENTS; Start 05/01/19 at 07:45; Status UNV Info (PHARMACY MONITORING -- do not chart) 1 each PRN DAILY PRN MC SEE COM MENTS; Start 05/01/19 at 07:45; Status UNV Active Scripts Active Tramadol Hcl 50 Mg Tablet 50 Mg PO PRN Q6HRS PRN Senna (Sennosides) 8.6 Mg Tablet 2 Tab PO PRN DAILY PRN 30 Days Ondansetron Odt (Ondansetron) 4 Mg Tab.rapdis 4 Mg PO Q6HRS PRN Metoclopramide Hcl 5 Mg Tablet 5 Mg PO TIDACHC Humalog (Insulin Lispro) 100 Unit/1 Ml Insuln.pen 0 Units SQ TIDWMEALS 30 Days BG 150-199= 1 units 200-299= 2 units 300-399= 4 units 400-499= 6 units ac tid sliding scale Reported Zofran (Ondansetron Hcl) 4 Mg Tablet 1 Tab PO Q6HRS Vitamin D3 (Cholecalciferol (Vitamin D3)) 1,000 Unit Tablet 1 Tab PO DAILY Tylenol (Acetaminophen) 325 Mg Tablet 325 Mg PO QID Tylenol (Acetaminophen) 325 Mg Tablet 1 Tab PO PRN Q4HRS Senna (Sennosides) 8.6 Mg Tablet 8.6 Mg PO PRN DAILY PRN 2 tabs Renvela (Sevelamer Carbonate) 800 Mg Tablet 800 Mg PO TIDWMEALS Renal Caps Softgel (Folic Acid/Vitamin B Comp W-C) 1 Mg Capsule 1 Mg PO DAILY Reglan (Metoclopramide Hcl) 10 Mg Tablet 5 Mg PO TID Protonix (Pantoprazole Sodium) 20 Mg Tablet.dr 1 Tab PO DAILY Probiotic (Lactobacillus Acidophilus) 1 Each Capsule 1 Each PO BID Milk Of Magnesia (Magnesium Hydroxide) 400 Mg/5 Ml Oral.susp 400 Mg PO PRN DAILY PRN Lipitor (Atorvastatin Calcium) 40 Mg Tablet 1 Tab PO QHS Skin Treatment (Ammonium Lactate) 225 Gm Lotion 225 Gm TP BID Humalog (Insulin Lispro) 100 Unit/1 Ml Insuln.pen 100 Unit SQ TIDBFRMEAL 150-199=1 unit 200-299=2 units 300-399=4 units 100-499=6 units Clopidogrel (Clopidogrel Bisulfate) 75 Mg Tablet 1 Tab PO DAILY Dulcolax (Bisacodyl) 10 Mg Supp.rect 10 Mg RC PRN DAILY PRN Aspir-Low (Aspirin) 81 Mg Tablet.dr 1 Tab PO DAILY Allopurinol 100 Mg Tablet 1 Tab PO DAILY Bisacodyl 10 Mg Supp.rect 10 Mg RC PRN DAILY PRN Protonix (Pantoprazole Sodium) 20 Mg Tablet.dr 1 Tab PO DAILY Duoneb 0.5-3(2.5) Mg/3 Ml (Albuterol/Ipratropium) 3 Ml Ampul.neb 3 Ml NEB PRN Q4HRS PRN Milk Of Magnesia (Magnesium Hydroxide) 400 Mg/5 Ml Oral.susp 400 Mg PO PRN DAILY PRN Lac-Hydrin Five (Ammonium Lactate) 226 Gm Lotion 226 Gm TP BID Benadryl Allergy (Diphenhydramine Hcl) 12.5 Mg/5 Ml Liquid 25 Mg PO PRN Q6HRS PRN Vitamin B-12 (Cyanocobalamin (Vitamin B-12)) 1,000 Mcg Tablet 1 Tab PO DAILY Allopurinol 100 Mg Tablet 1 Tab PO DAILY Renal Caps Softgel (Folic Acid/Vitamin B Comp W-C) 1 Mg Capsule 1 Cap PO DAILY Acidophilus Lactobacilli (Lactobacillus Acidophilus) 1 Each Capsule 1 Each PO BID Renvela (Sevelamer Carbonate) 800 Mg Tablet 800 Mg PO TIDWMEALS Tylenol (Acetaminophen) 325 Mg Tablet 1 Tab PO PRN Q4HRS Aspirin 81 Mg Tab.chew 81 Mg PO DAILY Lipitor (Atorvastatin Calcium) 40 Mg Tablet 40 Mg PO HS Clopidogrel (Clopidogrel Bisulfate) 75 Mg Tablet 75 Mg PO DAILY Vitamin D-3 (Cholecalciferol (Vitamin D3)) 2,000 Unit Capsule 1,000 Unit PO DAILY Vitals/I & O Vital Sign - Last 24 Hours 04/30/19 04/30/19 04/30/19 04/30/19 11:00 15:00 19:00 20:00 Temp 98.7 98.7 98.2 98.7 98.7 98.2 Pulse 65 69 65 Resp 18 20 22 B/P (MAP) 155/26 (69) 152/30 (70) 136/63 (87) Pulse Ox 94 92 98 O2 Delivery Room Air Room Air Room Air Room Air 04/30/19 05/01/19 05/01/19 23:00 03:00 07:00 Temp 97.9 98.6 97.9 98.6 Pulse 64 62 Resp 22 20 B/P (MAP) 113/60 (77) 128/60 (82) Pulse Ox 94 97 O2 Delivery Room Air Room Air Room Air O2 Flow Rate 8.0 Intake and Output 04/30/19 04/30/19 05/01/19 14:59 22:59 06:59 Intake Total 100 ml 150 ml Output Total 250 ml 1 ml Balance 100 ml -250 ml 149 ml KIMI TIDWELL MD May 01, 2019 10:02
--- NOTE | 2019-05-01 11:15 | PDOC ---
PROGRESS NOTES Subjective Subjective "I am going to [facility] at 3:00 today." Objective Objective Vascular Surgery - POD#4 Right BKA General: Patient seen and examined while on hemodialysis. Awake and alert. Conversive. Denies leg pain at this moment. Vital Signs stable, afebrile. RLE: Right BKA dressing removed. Incision intact with no erythema, no hematoma, minimal bloody drainage. Staple line healthy. A/P POD#4 right BKA - dry dressing daily - instruct [facility] to wash incision daily and lightly with CLEAN washcloth, soap and water. Pat dry. - PT needs to continue to work with patient on flexion and extension of right knee to not allow knee to become limited on ROM. - follow up appointment has been made with Dr. Byers for staple removal. May 25, 2019 at 1300. - ok to discharge from vascular perspective. Vital Signs Date Time Temp Pulse Resp B/P (MAP) Pulse Ox O2 Delivery O2 Flow Rate FiO2 05/01/19 07:00 Room Air 8.0 05/01/19 03:00 98.6 62 20 128/60 (82) 97 98.6 Intake and Output 05/01/19 06:59 Intake Total 250 ml Output Total 251 ml Balance -1 ml Intake Oral 250 ml Output Urine Total 250 ml Stool Total 1 ml # Bowel Movements 2 Comment Review of Relevant I have reviewed the following items simeon (where applicable) has been applied. Labs Laboratory Tests Test 04/29/19 16:57 04/29/19 21:12 04/30/19 05:30 04/30/19 07:32 Glucose (Fingerstick) 134 mg/dL (70-99) 115 mg/dL (70-99) 95 mg/dL (70-99) White Blood Count 10.1 x10^3/uL (4.0-11.0) Red Blood Count 3.78 x10^6/uL (4.30-5.70) Hemoglobin 10.7 g/dL (13.0-17.5) Hematocrit 32.9 % (39.0-53.0) Mean Corpuscular Volume 87 fL (79-100) Mean Corpuscular Hemoglobin 28 pg (25-35) Mean Corpuscular Hemoglobin Concent 33 g/dL (31-37) Red Cell Distribution Width 18.3 % (11.5-14.5) Platelet Count 307 x10^3/uL (140-400) Neutrophils (%) (Auto) 76 % (31-73) Lymphocytes (%) (Auto) 13 % (24-48) Monocytes (%) (Auto) 6 % (0-9) Eosinophils (%) (Auto) 5 % (0-3) Basophils (%) (Auto) 1 % (0-3) Neutrophils # (Auto) 7.7 x10^3uL (1.8-7.7) Lymphocytes # (Auto) 1.3 x10^3/uL (1.0-4.8) Monocytes # (Auto) 0.6 x10^3/uL (0.0-1.1) Eosinophils # (Auto) 0.5 x10^3/uL (0.0-0.7) Basophils # (Auto) 0.1 x10^3/uL (0.0-0.2) Test 04/30/19 11:20 04/30/19 17:02 04/30/19 20:35 05/01/19 07:25 Glucose (Fingerstick) 138 mg/dL (70-99) 150 mg/dL (70-99) 152 mg/dL (70-99) White Blood Count 10.8 x10^3/uL (4.0-11.0) Red Blood Count 3.53 x10^6/uL (4.30-5.70) Hemoglobin 9.8 g/dL (13.0-17.5) Hematocrit 30.8 % (39.0-53.0) Mean Corpuscular Volume 87 fL (79-100) Mean Corpuscular Hemoglobin 28 pg (25-35) Mean Corpuscular Hemoglobin Concent 32 g/dL (31-37) Red Cell Distribution Width 17.9 % (11.5-14.5) Platelet Count 290 x10^3/uL (140-400) Neutrophils (%) (Auto) 77 % (31-73) Lymphocytes (%) (Auto) 13 % (24-48) Monocytes (%) (Auto) 5 % (0-9) Eosinophils (%) (Auto) 5 % (0-3) Basophils (%) (Auto) 1 % (0-3) Neutrophils # (Auto) 8.3 x10^3uL (1.8-7.7) Lymphocytes # (Auto) 1.4 x10^3/uL (1.0-4.8) Monocytes # (Auto) 0.5 x10^3/uL (0.0-1.1) Eosinophils # (Auto) 0.6 x10^3/uL (0.0-0.7) Basophils # (Auto) 0.1 x10^3/uL (0.0-0.2) Sodium Level 139 mmol/L (136-145) Potassium Level 4.0 mmol/L (3.5-5.1) Chloride Level 101 mmol/L (98-107) Carbon Dioxide Level 27 mmol/L (21-32) Anion Gap 11 (6-14) Blood Urea Nitrogen 28 mg/dL (8-26) Creatinine 6.4 mg/dL (0.7-1.3) Estimated GFR (Cockcroft-Gault) 10.3 Glucose Level 104 mg/dL (70-99) Calcium Level 8.2 mg/dL (8.5-10.1) Laboratory Tests Test 04/30/19 11:20 04/30/19 17:02 04/30/19 20:35 05/01/19 07:25 Glucose (Fingerstick) 138 mg/dL (70-99) 150 mg/dL (70-99) 152 mg/dL (70-99) White Blood Count 10.8 x10^3/uL (4.0-11.0) Red Blood Count 3.53 x10^6/uL (4.30-5.70) Hemoglobin 9.8 g/dL (13.0-17.5) Hematocrit 30.8 % (39.0-53.0) Mean Corpuscular Volume 87 fL (79-100) Mean Corpuscular Hemoglobin 28 pg (25-35) Mean Corpuscular Hemoglobin Concent 32 g/dL (31-37) Red Cell Distribution Width 17.9 % (11.5-14.5) Platelet Count 290 x10^3/uL (140-400) Neutrophils (%) (Auto) 77 % (31-73) Lymphocytes (%) (Auto) 13 % (24-48) Monocytes (%) (Auto) 5 % (0-9) Eosinophils (%) (Auto) 5 % (0-3) Basophils (%) (Auto) 1 % (0-3) Neutrophils # (Auto) 8.3 x10^3uL (1.8-7.7) Lymphocytes # (Auto) 1.4 x10^3/uL (1.0-4.8) Monocytes # (Auto) 0.5 x10^3/uL (0.0-1.1) Eosinophils # (Auto) 0.6 x10^3/uL (0.0-0.7) Basophils # (Auto) 0.1 x10^3/uL (0.0-0.2) Sodium Level 139 mmol/L (136-145) Potassium Level 4.0 mmol/L (3.5-5.1) Chloride Level 101 mmol/L (98-107) Carbon Dioxide Level 27 mmol/L (21-32) Anion Gap 11 (6-14) Blood Urea Nitrogen 28 mg/dL (8-26) Creatinine 6.4 mg/dL (0.7-1.3) Estimated GFR (Cockcroft-Gault) 10.3 Glucose Level 104 mg/dL (70-99) Calcium Level 8.2 mg/dL (8.5-10.1) Microbiology 04/24/19 Anaerobic/Aerobic Culture - Final, Complete 04/24/19 Anaerobic Culture Result 1 (SIXTO) - Final, Complete 04/24/19 Aerobic Culture - Final, Complete 04/24/19 Aerobic Culture Result 1 (SIXTO) - Final, Complete 04/24/19 Aerobic Culture Result 2 (SIXTO) - Final, Complete 04/24/19 Antimicrobic Susceptibility - Final, Complete 04/24/19 Gram Stain - Final, Complete 04/24/19 Gram Stain Result 1 (SIXTO) - Final, Complete 04/24/19 Gram Stain Result 2 (SIXTO) - Final, Complete Medications Current Medications Linezolid/Dextrose 300 ml @ 300 mls/hr Q12HR IV Last administered on 04/30/19at 08:38; Start 04/24/19 at 13:30; Stop 04/30/19 at 13:58; Status DC Piperacillin Sod/ Tazobactam Sod 2.25 gm/Sodium Chloride 50 ml @ 100 mls/hr Q8HRS IV Last administered on 04/30/19at 06:30; Start 04/24/19 at 14:00; Stop 04/30/19 at 13:58; Status DC Magnesium Hydroxide (Milk Of Magnesia) 2,400 mg PRN DAILY PRN PO CONSTIPATION; Start 04/24/19 at 12:15 Ondansetron HCl (Zofran Odt) 4 mg PRN Q6HRS PRN PO NAUSEA/VOMITING, 1st CHOICE; Start 04/24/19 at 12:15 Tramadol HCl (Ultram) 25 mg PRN Q6HRS PRN PO MODERATE PAIN Last administered on 04/29/19 07:55; Start 04/24/19 at 12:15; Stop 04/29/19 at 11:09; Status DC Aspirin (Ecotrin) 81 mg DAILYWBKFT PO Last administered on 04/30/19 08:38; Start 04/24/19 at 13:30 Sevelamer Carbonate (Renvela) 800 mg TIDWMEALS PO Last administered on 04/30/19 17:19; Start 04/24/19 at 13:30 Cyanocobalamin (Vitamin B-12) 1,000 mcg DAILY PO Last administered on 04/30/19 08:37; Start 04/24/19 at 13:30 Allopurinol (Zyloprim) 100 mg DAILY PO Last administered on 04/30/19 08:38; Start 04/24/19 at 13:30 Atorvastatin Calcium (Lipitor) 40 mg QHS PO Last administered on 04/30/19 22:55; Start 04/24/19 at 21:00 Acetaminophen (Tylenol) 325 mg PRN QID PRN PO MILD PAIN / TEMP Last administered on 04/29/19 06:00; Start 04/24/19 at 12:15 Clopidogrel Bisulfate (Plavix) 75 mg DAILYWBKFT PO Last administered on 04/30/19 08:37; Start 04/24/19 at 13:30 Metoclopramide HCl (Reglan) 5 mg PRN BFRMEALHC PRN PO NAUSEA/VOMITING, 2nd CHOICE; Start 04/24/19 at 12:15 Vitamin D (Vitamin D3) 1,000 unit DAILY PO Last administered on 04/30/19 08:38; Start 04/24/19 at 13:30 Pantoprazole Sodium (Protonix) 40 mg DAILYAC PO Last administered on 05/01/19 06:35; Start 04/24/19 at 13:30 Insulin Human Lispro (HumaLOG) 0-5 UNITS TIDWMEALS SQ Last administered on 04/29/19at 12:00; Start 04/24/19 at 17:00 Dextrose (Dextrose 50%-Water Syringe) 12.5 gm PRN Q15MIN PRN IV SEE COMMENTS; Start 04/24/19 at 12:15 Lactobacillus Rhamnosus (Culturelle) 1 cap BID PO Last administered on 04/30/19at 22:55; Start 04/24/19 at 13:30 Vitamin B Complex/ Vitamin C (Krista-Beatriz) 1 tab DAILY PO Last administered on 04/30/19at 08:38; Start 04/24/19 at 13:30 Piperacillin Sod/ Tazobactam Sod 2.25 gm/Sodium Chloride 50 ml @ 100 mls/hr Q8HRS IV ; Start 04/24/19 at 14:00; Status UNV Clopidogrel Bisulfate (Plavix) 75 mg DAILYWBKFT PO ; Start 04/25/19 at 08:00; Status UNV Metoclopramide HCl (Reglan) 5 mg TIDBFRMEAL PO Last administered on 05/01/19at 06:35; Start 04/24/19 at 16:30 Vitamin D (Vitamin D3) 1,000 unit DAILY PO ; Start 04/25/19 at 09:00; Status UNV Pantoprazole Sodium (Protonix) 20 mg DAILYAC PO ; Start 04/25/19 at 07:30; Status UNV Aspirin (Onesimo Aspirin) 81 mg DAILYWBKFT PO ; Start 04/25/19 at 08:00; Status UNV Sevelamer Carbonate (Renvela) 800 mg TIDWMEALS PO ; Start 04/24/19 at 17:00; Status UNV Cyanocobalamin (Vitamin B-12) 1,000 mcg DAILY PO ; Start 04/25/19 at 09:00; Status UNV Lactobacillus Rhamnosus (Culturelle) 1 cap BID PO ; Start 04/24/19 at 21:00; St atus UNV Allopurinol (Zyloprim) 100 mg DAILY PO ; Start 04/25/19 at 09:00; Status UNV Atorvastatin Calcium (Lipitor) 40 mg QHS PO ; Start 04/24/19 at 21:00; Status UNV Acetaminophen (Tylenol) 325 mg PRN Q6HRS PRN PO MILD PAIN / TEMP; Start 04/24/19 at 12:15; Status UNV Acetaminophen (Tylenol) 325 mg QID PO Last administered on 04/30/19at 22:55; Start 04/24/19 at 13:30 Ondansetron HCl (Zofran Odt) 4 mg PRN Q6HRS PRN PO NAUSEA/VOMITING; Start 04/24/19 at 12:15; Status UNV Tramadol HCl (Ultram) 25 mg PRN Q6HRS PRN PO PAIN; Start 04/24/19 at 12:15; Status UNV Diphenhydramine HCl (Benadryl) 25 mg PRN Q6HRS PRN PO ITCHING; Start 04/24/19 at 12:15 Magnesium Hydroxide (Milk Of Magnesia) 2,400 mg PRN DAILY PRN PO CONSTIPATION; Start 04/24/19 at 12:15; Status UNV Insulin Human Lispro (HumaLOG) 0-6 UNITS BG 300-39... TIDWMEALS SQ ; Start 04/24/19 at 17:00; Status UNV Sodium Chloride 1,000 ml @ 1,000 mls/hr Q1H PRN IV hypotension; Start 04/24/19 at 17:00; Stop 04/24/19 at 23:00; Status DC Sodium Chloride 1,000 ml @ 400 mls/hr Q2H30M PRN IV PATENCY; Start 04/24/19 at 17:00; Stop 04/24/19 at 23:00; Status DC Info (PHARMACY MONITORING -- do not chart) 1 each PRN DAILY PRN MC SEE COMMENTS; Start 04/24/19 at 17:15; Status UNV Info (PHARMACY MONITORING -- do not chart) 1 each PRN DAILY PRN MC SEE COMMENTS; Start 04/24/19 at 17:15; Stop 04/26/19 at 11:06; Status DC Darbepoetin Reinaldo (Aranesp) 60 mcg WEEKLYHS SQ Last administered on 04/25/19at 22:34; Start 04/25/19 at 21:00 Bacitracin 90252 unit/Sodium Chloride 500 ml @ 500 mls/hr 1X ONCE IRR ; Start 04/26/19 at 06:00; Stop 04/26/19 at 06:59; Status Cancel Ondansetron HCl (Zofran) 4 mg PRN Q6HRS PRN IV NAUSEA/VOMITING; Start 04/26/19 at 07:00; Stop 04/27/19 at 06:59; Status DC Morphine Sulfate (Morphine Sulfate) 1 mg PRN Q10MIN PRN IV SEVERE PAIN 7-10; Start 04/26/19 at 07:00; Stop 04/27/19 at 06:59; Status DC Ringer's Solution 1,000 ml @ 30 mls/hr Q24H IV ; Start 04/26/19 at 07:00; Stop 04/26/19 at 18:59; Status DC Hydromorphone HCl (Dilaudid) 0.5 mg PRN Q10MIN PRN IV SEV PAIN, Second choice; Start 04/26/19 at 07:00; Stop 04/27/19 at 06:59; Status DC Ondansetron HCl (Zofran) 4 mg PRN Q6HRS PRN IV NAUSEA/VOMITING; Start 04/26/19 at 07:00; Stop 04/27/19 at 06:59; Status UNV Morphine Sulfate (Morphine Sulfate) 1 mg PRN Q10MIN PRN IV SEVERE PAIN 7-10; Start 04/26/19 at 07:00; Stop 04/27/19 at 06:59; Status UNV Ringer's Solution 1,000 ml @ 30 mls/hr Q24H IV ; Start 04/26/19 at 07:00; Stop 04/26/19 at 18:59; Status UNV Hydromorphone HCl (Dilaudid) 0.5 mg PRN Q10MIN PRN IV SEV PAIN, Second choice; Start 04/26/19 at 07:00; Stop 04/27/19 at 06:59; Status UNV Sodium Chloride 1,000 ml @ 1,000 mls/hr Q1H PRN IV hypotension; Start 04/26/19 at 07:17; Stop 04/26/19 at 13:16; Status DC Sodium Chloride 1,000 ml @ 400 mls/hr Q2H30M PRN IV PATENCY; Start 04/26/19 at 07:17; Stop 04/26/19 at 19:16; Status DC Info (PHARMACY MONITORING -- do not chart) 1 each PRN DAILY PRN MC SEE COMMENTS; Start 04/26/19 at 07:30; Status UNV Info (PHARMACY MONITORING -- do not chart) 1 each PRN DAILY PRN MC SEE COMMENTS; Start 04/26/19 at 07:30 Lidocaine HCl 48 ml/Sodium Bicarbonate 12 meq/Miscellaneous 60 ml @ 60 mls/hr 1X ONCE ID ; Start 04/27/19 at 06:00; Stop 04/27/19 at 06:59; Status DC Ondansetron HCl (Zofran) 4 mg PRN Q6HRS PRN IV NAUSEA/VOMITING; Start 04/27/19 at 07:00; Stop 04/28/19 at 06:59; Status DC Fentanyl Citrate (Fentanyl 2ml Vial) 25 mcg PRN Q5MIN PRN IV MILD PAIN 1-3; Start 04/27/19 at 07:00; Stop 04/28/19 at 06:59; Status DC Fentanyl Citrate (Fentanyl 2ml Vial) 50 mcg PRN Q5MIN PRN IV MODERATE TO SEVERE PAIN Last administered on 04/27/19at 11:55; Start 04/27/19 at 07:00; Stop 9 at 06:59; Status DC Morphine Sulfate (Morphine Sulfate) 1 mg PRN Q10MIN PRN IV SEVERE PAIN 7-10; Start 04/27/19 at 07:00; Stop 04/28/19 at 06:59; Status DC Hydromorphone HCl (Dilaudid) 0.5 mg PRN Q10MIN PRN IV SEV PAIN, Second choice; Start 04/27/19 at 07:00; Stop 04/28/19 at 06:59; Status DC Prochlorperazine Edisylate (Compazine) 5 mg PACU PRN PRN IV NAUSEA, MRX1; Start 04/27/19 at 07:00; Stop 04/28/19 at 06:59; Status DC Sodium Chloride 1,000 ml @ 0 mls/hr Q0M IV ; Start 04/27/19 at 07:00; Stop 04/29/19 at 11:09; Status DC Propofol 20 ml @ As Directed STK-MED ONCE IV ; Start 04/27/19 at 08:51; Stop 04/27/19 at 08:52; Status DC Famotidine (Pepcid Vial) 20 mg STK-MED ONCE .ROUTE ; Start 04/27/19 at 08:51; Stop 04/27/19 at 08:52; Status DC Lidocaine HCl (Lidocaine Pf 2% Vial) 5 ml STK-MED ONCE .ROUTE ; Start 04/27/19 at 08:51; Stop 04/27/19 at 08:52; Status DC Ondansetron HCl (Zofran) 4 mg STK-MED ONCE .ROUTE ; Start 04/27/19 at 08:51; Stop 04/27/19 at 08:52; Status DC Fentanyl Citrate (Fentanyl 2ml Vial) 100 mcg STK-MED ONCE .ROUTE ; Start 04/27/19 at 09:16; Stop 04/27/19 at 09:17; Status DC Dexamethasone Sodium Phosphate (Decadron) 4 mg STK-MED ONCE .ROUTE ; Start 04/27/19 at 09:48; Stop 04/27/19 at 09:49; Status DC Ephedrine Sulfate (ePHEDrine PF IN SALINE SYRINGE) 50 mg STK-MED ONCE IV ; Start 04/27/19 at 09:53; Stop 04/27/19 at 09:54; Status DC Rocuronium Cedar (Zemuron) 50 mg STK-MED ONCE .ROUTE ; Start 04/27/19 at 10:10; Stop 04/27/19 at 10:11; Status DC Lidocaine HCl (Xylocaine 1% Pf 30ml Vial) 60 ml STK-MED ONCE INJ ; Start 04/27/19 at 10:01; Stop 04/27/19 at 10:02; Status Cancel Sevoflurane (Ultane) 60 ml STK-MED ONCE IH ; Start 04/27/19 at 11:04; Stop 04/27/19 at 11:05; Status DC Hydromorphone HCl (Dilaudid) 0.2 mg PRN Q4HRS PRN IVP PAIN; Start 04/27/19 at 11:30; Stop 04/28/19 at 13:10; Status DC Hydromorphone HCl (Dilaudid) 2 mg PRN Q4HRS PRN PO SEVERE PAIN Last administered on 04/28/19at 11:52; Start 04/27/19 at 11:30; Stop 04/28/19 at 13:10; Status DC Lidocaine HCl (Xylocaine-Mpf 1% 2ml Vial) 2 ml STK-MED ONCE .ROUTE ; Start 04/28/19 at 07:56; Stop 04/28/19 at 07:57; Status DC Sodium Chloride 1,000 ml @ 1,000 mls/hr Q1H PRN IV hypotension; Start 04/28/19 at 08:25; Stop 04/28/19 at 14:24; Status DC Diphenhydramine HCl (Benadryl) 25 mg 1X PRN PRN IV ITCHING; Start 04/28/19 at 08:30; Stop 04/29/19 at 08:29; Status DC Diphenhydramine HCl (Benadryl) 25 mg 1X PRN PRN IV ITCHING; Start 04/28/19 at 08:30; Stop 04/29/19 at 08:29; Status DC Sodium Chloride 1,000 ml @ 400 mls/hr Q2H30M PRN IV PATENCY; Start 04/28/19 at 08:25; Stop 04/28/19 at 20:24; Status DC Info (PHARMACY MONITORING -- do not chart) 1 each PRN DAILY PRN MC SEE COMMENTS; Start 04/28/19 at 08:30 Tramadol HCl (Ultram) 50 mg PRN Q6HRS PRN PO MODERATE PAIN Last administered on 05/01/19at 06:35; Start 04/29/19 at 11:15 Lactulose (Lactulose) 20 gm Q2H PO Last administered on 04/29/19at 15:30; Start 04/29/19 at 13:00; Stop 04/29/19 at 15:01; Status DC Sodium Chloride 1,000 ml @ 1,000 mls/hr Q1H PRN IV hypotension; Start 05/01/19 at 07:33; Stop 05/01/19 at 13:32 Albumin Human 200 ml @ 200 mls/hr 1X PRN PRN IV Hypotension; Start 05/01/19 at 07:45; Stop 05/01/19 at 13:44 Sodium Chloride 1,000 ml @ 400 mls/hr Q2H30M PRN IV PATENCY; Start 05/01/19 at 07:33; Stop 05/01/19 at 19:32 Info (PHARMACY MONITORING -- do not chart) 1 each PRN DAILY PRN MC SEE COMMENTS; Start 05/01/19 at 07:45; Status UNV Info (PHARMACY MONITORING -- do not chart) 1 each PRN DAILY PRN MC SEE COMMENTS; Start 05/01/19 at 07:45; Status UNV Active Scripts Active Tramadol Hcl 50 Mg Tablet 50 Mg PO PRN Q6HRS PRN Senna (Sennosides) 8.6 Mg Tablet 2 Tab PO PRN DAILY PRN 30 Days Ondansetron Odt (Ondansetron) 4 Mg Tab.rapdis 4 Mg PO Q6HRS PRN Metoclopramide Hcl 5 Mg Tablet 5 Mg PO TIDACHC Humalog (Insulin Lispro) 100 Unit/1 Ml Insuln.pen 0 Units SQ TIDWMEALS 30 Days BG 150-199= 1 units 200-299= 2 units 300-399= 4 units 400-499= 6 units ac tid sliding scale Reported Zofran (Ondansetron Hcl) 4 Mg Tablet 1 Tab PO Q6HRS Vitamin D3 (Cholecalciferol (Vitamin D3)) 1,000 Unit Tablet 1 Tab PO DAILY Tylenol (Acetaminophen) 325 Mg Tablet 325 Mg PO QID Tylenol (Acetaminophen) 325 Mg Tablet 1 Tab PO PRN Q4HRS Senna (Sennosides) 8.6 Mg Tablet 8.6 Mg PO PRN DAILY PRN 2 tabs Renvela (Sevelamer Carbonate) 800 Mg Tablet 800 Mg PO TIDWMEALS Renal Caps Softgel (Folic Acid/Vitamin B Comp W-C) 1 Mg Capsule 1 Mg PO DAILY Reglan (Metoclopramide Hcl) 10 Mg Tablet 5 Mg PO TID Protonix (Pantoprazole Sodium) 20 Mg Tablet. 1 Tab PO DAILY Probiotic (Lactobacillus Acidophilus) 1 Each Capsule 1 Each PO BID Milk Of Magnesia (Magnesium Hydroxide) 400 Mg/5 Ml Oral.susp 400 Mg PO PRN DAILY PRN Lipitor (Atorvastatin Calcium) 40 Mg Tablet 1 Tab PO QHS Skin Treatment (Ammonium Lactate) 225 Gm Lotion 225 Gm TP BID Humalog (Insulin Lispro) 100 Unit/1 Ml Insuln.pen 100 Unit SQ TIDBFRMEAL 150-199=1 unit 200-299=2 units 300-399=4 units 100-499=6 units Clopidogrel (Clopidogrel Bisulfate) 75 Mg Tablet 1 Tab PO DAILY Dulcolax (Bisacodyl) 10 Mg Supp.rect 10 Mg RC PRN DAILY PRN Aspir-Low (Aspirin) 81 Mg Tablet. 1 Tab PO DAILY Allopurinol 100 Mg Tablet 1 Tab PO DAILY Bisacodyl 10 Mg Supp.rect 10 Mg RC PRN DAILY PRN Protonix (Pantoprazole Sodium) 20 Mg Tablet.dr 1 Tab PO DAILY Duoneb 0.5-3(2.5) Mg/3 Ml (Albuterol/Ipratropium) 3 Ml Ampul.neb 3 Ml NEB PRN Q4HRS PRN Milk Of Magnesia (Magnesium Hydroxide) 400 Mg/5 Ml Oral.susp 400 Mg PO PRN DAILY PRN Lac-Hydrin Five (Ammonium Lactate) 226 Gm Lotion 226 Gm TP BID Benadryl Allergy (Diphenhydramine Hcl) 12.5 Mg/5 Ml Liquid 25 Mg PO PRN Q6HRS PRN Vitamin B-12 (Cyanocobalamin (Vitamin B-12)) 1,000 Mcg Tablet 1 Tab PO DAILY Allopurinol 100 Mg Tablet 1 Tab PO DAILY Renal Caps Softgel (Folic Acid/Vitamin B Comp W-C) 1 Mg Capsule 1 Cap PO DAILY Acidophilus Lactobacilli (Lactobacillus Acidophilus) 1 Each Capsule 1 Each PO BID Renvela (Sevelamer Carbonate) 800 Mg Tablet 800 Mg PO TIDWMEALS Tylenol (Acetaminophen) 325 Mg Tablet 1 Tab PO PRN Q4HRS Aspirin 81 Mg Tab.chew 81 Mg PO DAILY Lipitor (Atorvastatin Calcium) 40 Mg Tablet 40 Mg PO HS Clopidogrel (Clopidogrel Bisulfate) 75 Mg Tablet 75 Mg PO DAILY Vitamin D-3 (Cholecalciferol (Vitamin D3)) 2,000 Unit Capsule 1,000 Unit PO DAILY Vitals/I & O Vital Sign - Last 24 Hours 04/30/19 04/30/19 04/30/19 04/30/19 15:00 19:00 20:00 23:00 Temp 98.7 98.2 97.9 98.7 98.2 97.9 Pulse 69 65 64 Resp 20 22 22 B/P (MAP) 152/30 (70) 136/63 (87) 113/60 (77) Pulse Ox 92 98 94 O2 Delivery Room Air Room Air Room Air Room Air 05/01/19 05/01/19 03:00 07:00 Temp 98.6 98.6 Pulse 62 Resp 20 B/P (MAP) 128/60 (82) Pulse Ox 97 O2 Delivery Room Air Room Air O2 Flow Rate 8.0 Intake and Output 04/30/19 04/30/19 05/01/19 14:59 22:59 06:59 Intake Total 100 ml 150 ml Output Total 250 ml 1 ml Balance 100 ml -250 ml 149 ml RANDAL REBOLLEDO APRN May 01, 2019 11:15
--- NOTE | 2019-05-01 11:20 | NUR ---
Dr. Street paged per SW request re: multiple duplications on D/c med list for PP.
--- NOTE | 2019-05-01 11:25 | PDOC ---
SUBJECTIVE ROS Seen on HD , Tolerating well OBJECTIVE Vital Signs Vital Signs Date Time Temp Pulse Resp B/P (MAP) Pulse Ox O2 Delivery O2 Flow Rate FiO2 05/01/19 07:00 Room Air 8.0 05/01/19 03:00 98.6 62 20 128/60 (82) 97 98.6 I & 0 Intake and Output 05/01/19 07:00 Intake Total 250 ml Output Total 251 ml Balance -1 ml Intake Oral 250 ml Output Urine Total 250 ml Stool Total 1 ml # Bowel Movements 2 PHYSICAL EXAM Physical Exam GENERAL: alert, NAD HEENT: Oral mucosa moist NECK: Supple LUNGS: Clear bilaterally. No wheezing. HEART: S1, S2. PPM ABDOMEN: Obese, soft, nontender EXTREMITIES: No gross edema. RUE-AV fistula. Right leg bandaged. NEUROLOGIC: Alert, responds appropriately Skin : Warm, dry. No generalized rash. DIAGNOSIS/ASSESSMENT Assessment & Plan ESRD- On HD MWF Seen on HD , Tolerating well Continue as ordered, Dw Behavior Therapist Right lateral necrotic foot wound. 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 DM - Per primary Anemia - On BELLA Chronic lymphedema/Chronic venous stasis HyperPhos- On Phos Binder HTN- BP stable COMMENT/RELEVANT DATA Meds Current Medications Medications (Trade) Dose Ordered Sig/Bhavesh Start Time Stop Time Status Last Admin Dose Admin Acetaminophen (Tylenol) 325 mg QID 04/24/19 13:30 04/30/19 22:55 325 MG Albumin Human 200 ml @ 200 mls/hr 1X PRN PRN 05/01/19 07:45 05/01/19 13:44 Allopurinol (Zyloprim) 100 mg DAILY 04/25/19 09:00 UNV Aspirin (Onesimo Aspirin) 81 mg DAILYWBKFT 04/25/19 08:00 UNV Aspirin (Ecotrin) 81 mg DAILYWBKFT 04/24/19 13:30 04/30/19 08:38 81 MG Atorvastatin Calcium (Lipitor) 40 mg QHS 04/24/19 21:00 UNV Bacitracin 65183 unit/Sodium Chloride 500 ml @ 500 mls/hr 1X ONCE 04/26/19 06:00 04/26/19 06:59 Cancel Clopidogrel Bisulfate (Plavix) 75 mg DAILYWBKFT 04/25/19 08:00 UNV Cyanocobalamin (Vitamin B-12) 1,000 mcg DAILY 04/25/19 09:00 UNV Darbepoetin Reinaldo (Aranesp) 60 mcg WEEKLYHS 04/25/19 21:00 04/25/19 22:34 60 MCG Dexamethasone Sodium Phosphate (Decadron) 4 mg STK-MED ONCE 04/27/19 09:48 04/27/19 09:49 DC Dextrose (Dextrose 50%-Water Syringe) 12.5 gm PRN Q15MIN PRN 04/24/19 12:15 Diphenhydramine HCl (Benadryl) 25 mg 1X PRN PRN 04/28/19 08:30 04/29/19 08:29 DC Ephedrine Sulfate (ePHEDrine PF IN SALINE SYRINGE) 50 mg STK-MED ONCE 04/27/19 09:53 04/27/19 09:54 DC Famotidine (Pepcid Vial) 20 mg STK-MED ONCE 04/27/19 08:51 04/27/19 08:52 DC Fentanyl Citrate (Fentanyl 2ml Vial) 100 mcg STK-MED ONCE 04/27/19 09:16 04/27/19 09:17 DC Hydromorphone HCl (Dilaudid) 2 mg PRN Q4HRS PRN 04/27/19 11:30 04/28/19 13:10 DC 04/28/19 11:52 2 MG Info (PHARMACY MONITORING -- do not chart) 1 each PRN DAILY PRN 05/01/19 07:45 UNV Insulin Human Lispro (HumaLOG) 0-6 UNITS BG 300-39... TIDWMEALS 04/24/19 17:00 UNV Lactobacillus Rhamnosus (Culturelle) 1 cap BID 04/24/19 21:00 UNV Lactulose (Lactulose) 20 gm Q2H 04/29/19 13:00 04/29/19 15:01 DC 04/29/19 15:30 20 GM Lidocaine HCl (Lidocaine Pf 2% Vial) 5 ml STK-MED ONCE 04/27/19 08:51 04/27/19 08:52 DC Lidocaine HCl (Xylocaine 1% Pf 30ml Vial) 60 ml STK-MED ONCE 04/27/19 10:01 04/27/19 10:02 Cancel Lidocaine HCl (Xylocaine-Mpf 1% 2ml Vial) 2 ml STK-MED ONCE 04/28/19 07:56 04/28/19 07:57 DC Lidocaine HCl 48 ml/Sodium Bicarbonate 12 meq/Miscellaneous 60 ml @ 60 mls/hr 1X ONCE 04/27/19 06:00 04/27/19 06:59 DC Linezolid/Dextrose 300 ml @ 300 mls/hr Q12HR 04/24/19 13:30 04/30/19 13:58 DC 04/30/19 08:38 300 MLS/HR Magnesium Hydroxide (Milk Of Magnesia) 2,400 mg PRN DAILY PRN 04/24/19 12:15 UNV Metoclopramide HCl (Reglan) 5 mg TIDBFRMEAL 04/24/19 16:30 05/01/19 06:35 5 MG Morphine Sulfate (Morphine Sulfate) 1 mg PRN Q10MIN PRN 04/27/19 07:00 04/28/19 06:59 DC Ondansetron HCl (Zofran Odt) 4 mg PRN Q6HRS PRN 04/24/19 12:15 UNV Ondansetron HCl (Zofran) 4 mg STK-MED ONCE 04/27/19 08:51 04/27/19 08:52 DC Pantoprazole Sodium (Protonix) 20 mg DAILYAC 04/25/19 07:30 UNV Piperacillin Sod/ Tazobactam Sod 2.25 gm/Sodium Chloride 50 ml @ 100 mls/hr Q8HRS 04/24/19 14:00 UNV Prochlorperazine Edisylate (Compazine) 5 mg PACU PRN PRN 04/27/19 07:00 04/28/19 06:59 DC Propofol 20 ml @ As Directed STK-MED ONCE 04/27/19 08:51 04/27/19 08:52 DC Ringer's Solution 1,000 ml @ 30 mls/hr Q24H 04/26/19 07:00 04/26/19 18:59 UNV Rocuronium [place] (Zemuron) 50 mg STK-MED ONCE 04/27/19 10:10 04/27/19 10:11 DC Sevelamer Carbonate (Renvela) 800 mg TIDWMEALS 04/24/19 17:00 UNV Sevoflurane (Ultane) 60 ml STK-MED ONCE 04/27/19 11:04 04/27/19 11:05 DC Sodium Chloride 1,000 ml @ 400 mls/hr Q2H30M PRN 05/01/19 07:33 05/01/19 19:32 Tramadol HCl (Ultram) 50 mg PRN Q6HRS PRN 04/29/19 11:15 05/01/19 06:35 50 MG Vitamin B Complex/ Vitamin C (Krista-Beatriz) 1 tab DAILY 04/24/19 13:30 04/30/19 08:38 1 TAB Vitamin D (Vitamin D3) 1,000 unit DAILY 04/25/19 09:00 UNV Lab Laboratory Tests Test 04/30/19 17:02 04/30/19 20:35 05/01/19 07:25 Glucose (Fingerstick) 150 mg/dL (70-99) 152 mg/dL (70-99) White Blood Count 10.8 x10^3/uL (4.0-11.0) Red Blood Count 3.53 x10^6/uL (4.30-5.70) Hemoglobin 9.8 g/dL (13.0-17.5) Hematocrit 30.8 % (39.0-53.0) Mean Corpuscular Volume 87 fL (79-100) Mean Corpuscular Hemoglobin 28 pg (25-35) Mean Corpuscular Hemoglobin Concent 32 g/dL (31-37) Red Cell Distribution Width 17.9 % (11.5-14.5) Platelet Count 290 x10^3/uL (140-400) Neutrophils (%) (Auto) 77 % (31-73) Lymphocytes (%) (Auto) 13 % (24-48) Monocytes (%) (Auto) 5 % (0-9) Eosinophils (%) (Auto) 5 % (0-3) Basophils (%) (Auto) 1 % (0-3) Neutrophils # (Auto) 8.3 x10^3uL (1.8-7.7) Lymphocytes # (Auto) 1.4 x10^3/uL (1.0-4.8) Monocytes # (Auto) 0.5 x10^3/uL (0.0-1.1) Eosinophils # (Auto) 0.6 x10^3/uL (0.0-0.7) Basophils # (Auto) 0.1 x10^3/uL (0.0-0.2) Sodium Level 139 mmol/L (136-145) Potassium Level 4.0 mmol/L (3.5-5.1) Chloride Level 101 mmol/L (98-107) Carbon Dioxide Level 27 mmol/L (21-32) Anion Gap 11 (6-14) Blood Urea Nitrogen 28 mg/dL (8-26) Creatinine 6.4 mg/dL (0.7-1.3) Estimated GFR (Cockcroft-Gault) 10.3 Glucose Level 104 mg/dL (70-99) Calcium Level 8.2 mg/dL (8.5-10.1) Results All relevant outside records, renal labs, imaging studies, telemetry/EKG's were reviewed. WAYLON GONZALEZ MD May 01, 2019 11:25
--- NOTE | 2019-05-01 11:45 | NUR ---
Dr. Street notified of areas needing to be fixed in d/c med list for [facility] to take pt. FABRIZIO Rivas notified of Dr. Street's notification. Smiley, RN nursing supervisor landscape also notified of reason for possible delay in d/c to [facility] today.
--- NOTE | 2019-05-01 12:05 | PDOC ---
Infectious Disease Note Subjective Subjective In HD. Doing well and pain controlled Denies N/V/F/C Vital Sign Vital Signs Vital Signs Date Time Temp Pulse Resp B/P (MAP) Pulse Ox O2 Delivery O2 Flow Rate FiO2 05/01/19 07:00 Room Air 8.0 05/01/19 03:00 98.6 62 20 128/60 (82) 97 98.6 Physical Exam PHYSICAL EXAM GENERAL: Propped up in bed, alert, NAD HEENT: Oral mucosa dry NECK: Supple LUNGS: Clear bilaterally. No wheezing. HEART: S1, S2. PPM ABDOMEN: Obese, soft, nontender EXTREMITIES: No gross edema. RUE-AV fistula. Right leg bandaged. Left heel protector in place. NEUROLOGIC: Alert, responds appropriately DERMATOLOGIC: Warm, no generalized rash. PIV Labs Lab Laboratory Tests Test 04/30/19 17:02 04/30/19 20:35 05/01/19 07:25 Glucose (Fingerstick) 150 mg/dL (70-99) 152 mg/dL (70-99) White Blood Count 10.8 x10^3/uL (4.0-11.0) Red Blood Count 3.53 x10^6/uL (4.30-5.70) Hemoglobin 9.8 g/dL (13.0-17.5) Hematocrit 30.8 % (39.0-53.0) Mean Corpuscular Volume 87 fL (79-100) Mean Corpuscular Hemoglobin 28 pg (25-35) Mean Corpuscular Hemoglobin Concent 32 g/dL (31-37) Red Cell Distribution Width 17.9 % (11.5-14.5) Platelet Count 290 x10^3/uL (140-400) Neutrophils (%) (Auto) 77 % (31-73) Lymphocytes (%) (Auto) 13 % (24-48) Monocytes (%) (Auto) 5 % (0-9) Eosinophils (%) (Auto) 5 % (0-3) Basophils (%) (Auto) 1 % (0-3) Neutrophils # (Auto) 8.3 x10^3uL (1.8-7.7) Lymphocytes # (Auto) 1.4 x10^3/uL (1.0-4.8) Monocytes # (Auto) 0.5 x10^3/uL (0.0-1.1) Eosinophils # (Auto) 0.6 x10^3/uL (0.0-0.7) Basophils # (Auto) 0.1 x10^3/uL (0.0-0.2) Sodium Level 139 mmol/L (136-145) Potassium Level 4.0 mmol/L (3.5-5.1) Chloride Level 101 mmol/L (98-107) Carbon Dioxide Level 27 mmol/L (21-32) Anion Gap 11 (6-14) Blood Urea Nitrogen 28 mg/dL (8-26) Creatinine 6.4 mg/dL (0.7-1.3) Estimated GFR (Cockcroft-Gault) 10.3 Glucose Level 104 mg/dL (70-99) Calcium Level 8.2 mg/dL (8.5-10.1) Micro Microbiology 04/24/19 Anaerobic/Aerobic Culture - Final, Complete 04/24/19 Anaerobic Culture Result 1 (SIXTO) - Final, Complete 04/24/19 Aerobic Culture - Final, Complete 04/24/19 Aerobic Culture Result 1 (SIXTO) - Final, Complete 04/24/19 Aerobic Culture Result 2 (SIXTO) - Final, Complete 04/24/19 Antimicrobic Susceptibility - Final, Complete 04/24/19 Gram Stain - Final, Complete 04/24/19 Gram Stain Result 1 (SIXTO) - Final, Complete 04/24/19 Gram Stain Result 2 (SIXTO) - Final, Complete Objective Assessment Right lateral necrotic foot wound. 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 Vascular note reviewed OK to transfer JAYY SUÁREZ MD May 01, 2019 12:05
[2019-05-01] MEDS: ALLOPURINOL 100 MG TABLET. PO SCH (12:40)
[2019-05-01] MEDS: CHOLECALCIFEROL (VITAMIN D3) 1,000 UNIT TABLET PO SCH (12:40)
[2019-05-01] MEDS: LACTOBACILLUS RHAMNOSUS GG 1 CAPSULE. PO SCH ×2 (12:40→21:09)
[2019-05-01] MEDS: ASPIRIN ENTERIC COATED 81 MG TABLET.DR. PO SCH (12:40)
[2019-05-01] MEDS: FOLIC/VIT B COMP W-C (RENAL) TABLET. PO SCH (12:40)
[2019-05-01] MEDS: CYANOCOBALAMIN (VITAMIN B-12) 1,000 MCG TABLET. PO SCH (12:40)
[2019-05-01] MEDS: CLOPIDOGREL BISULFATE 75 MG TABLET PO SCH (12:41)
--- NOTE | 2019-05-01 13:23 | NUR ---
SW following. Transportation for pt to [facility] has been cancelled. Pt will not be discharging until Dr. Street addresses and fixes the discharge paperwork which has multiple medications repeated. Discharge in the computer has medications stopped which are not stopped on the discharge continuing care plan. SW will continue to follow. RN notified of discharge stopped.
[2019-05-01 15:00] VITALS: BP 111/59
[2019-05-01 19:00] VITALS: BP 92/38
[2019-05-01] MEDS: ATORVASTATIN CALCIUM 40 MG TABLET. PO SCH (21:09)
[2019-05-01 23:00] VITALS: BP 143/60
[2019-05-02 01:00] VITALS: BP 78/34
[2019-05-02 03:00] VITALS: BP 78/34
[2019-05-02] MEDS: PANTOPRAZOLE 40 MG TABLET.DR. PO SCH (07:10)
[2019-05-02] MEDS: METOCLOPRAMIDE 5 MG TABLET. PO SCH ×2 (07:10→12:29)
[2019-05-02] MEDS: traMADol 50 MG TABLET PO PRN (07:10)
[2019-05-02 07:57] VITALS: BP 128/32
[2019-05-02] MEDS: INSULIN LISPRO 300 UNITS/3 ML INSULN.PEN. SQ SCH ×2 (08:00→12:34)
[2019-05-02] MEDS: CYANOCOBALAMIN (VITAMIN B-12) 1,000 MCG TABLET. PO SCH (08:15)
[2019-05-02] MEDS: LACTOBACILLUS RHAMNOSUS GG 1 CAPSULE. PO SCH (08:15)
[2019-05-02] MEDS: SEVELAMER CARBONATE 800 MG TABLET. PO SCH ×2 (08:15→12:29)
[2019-05-02] MEDS: ACETAMINOPHEN 325 MG TABLET. PO SCH ×2 (08:16→12:29)
[2019-05-02] MEDS: CLOPIDOGREL BISULFATE 75 MG TABLET PO SCH (08:16)
[2019-05-02] MEDS: ASPIRIN ENTERIC COATED 81 MG TABLET.DR. PO SCH (08:16)
[2019-05-02] MEDS: FOLIC/VIT B COMP W-C (RENAL) TABLET. PO SCH (08:16)
[2019-05-02] MEDS: CHOLECALCIFEROL (VITAMIN D3) 1,000 UNIT TABLET PO SCH (08:16)
[2019-05-02] MEDS: ALLOPURINOL 100 MG TABLET. PO SCH (08:16)
--- NOTE | 2019-05-02 09:19 | NUR ---
Dr. Street paged re: approximate time of rounding today.
--- NOTE | 2019-05-02 09:51 | NUR ---
Dr. Street on the unit, informed of the reasons with d/c orders/meds in the computer and [facility] not accepting it as is. stated he is not going to fix it and to have SW call him as he does not know what else to do to fix it. FABRIZIO Rivas and JUAN Reisteaching supervisor paged.
--- NOTE | 2019-05-02 10:25 | PDOC ---
PROGRESS NOTES Subjective Subjective feels okay. [facility]. Objective Objective Vital Signs Date Time Temp Pulse Resp B/P (MAP) Pulse Ox O2 Delivery O2 Flow Rate FiO2 05/02/19 08:16 Room Air 05/02/19 07:57 98.4 64 18 128/32 (64) 95 98.4 05/01/19 07:00 8.0 Intake and Output 05/02/19 07:00 Intake Total 600 ml Output Total 70 ml Balance 530 ml Intake Oral 600 ml Output Urine Total 70 ml # Bowel Movements 2 Physical Exam Abdomen: Soft Heart: Regular rate, Normal S1, Normal S2 Extremities: No edema, Other (right BKA with immobilizer) General: Alert HEENT: Atraumatic Lungs: Clear to auscultation Neuro: Normal speech Psych/Mental Status: Mental status NL Skin: No rashes Assessment Assessment 1. 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 History of right transmetatarsal amputation with skin graft. 3. End-stage renal disease on hemodialysis. 4. Obstructive sleep apnea. 5. Diabetes mellitus type 2 with peripheral neuropathy. 6. Peripheral arterial disease. 7. Anemia of chronic disease. 8. Hyperlipidemia. 9. Morbid obesity. 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 Labs Laboratory Tests Test 04/30/19 11:20 04/30/19 17:02 04/30/19 20:35 05/01/19 07:25 Glucose (Fingerstick) 138 mg/dL (70-99) 150 mg/dL (70-99) 152 mg/dL (70-99) White Blood Count 10.8 x10^3/uL (4.0-11.0) Red Blood Count 3.53 x10^6/uL (4.30-5.70) Hemoglobin 9.8 g/dL (13.0-17.5) Hematocrit 30.8 % (39.0-53.0) Mean Corpuscular Volume 87 fL (79-100) Mean Corpuscular Hemoglobin 28 pg (25-35) Mean Corpuscular Hemoglobin Concent 32 g/dL (31-37) Red Cell Distribution Width 17.9 % (11.5-14.5) Platelet Count 290 x10^3/uL (140-400) Neutrophils (%) (Auto) 77 % (31-73) Lymphocytes (%) (Auto) 13 % (24-48) Monocytes (%) (Auto) 5 % (0-9) Eosinophils (%) (Auto) 5 % (0-3) Basophils (%) (Auto) 1 % (0-3) Neutrophils # (Auto) 8.3 x10^3uL (1.8-7.7) Lymphocytes # (Auto) 1.4 x10^3/uL (1.0-4.8) Monocytes # (Auto) 0.5 x10^3/uL (0.0-1.1) Eosinophils # (Auto) 0.6 x10^3/uL (0.0-0.7) Basophils # (Auto) 0.1 x10^3/uL (0.0-0.2) Sodium Level 139 mmol/L (136-145) Potassium Level 4.0 mmol/L (3.5-5.1) Chloride Level 101 mmol/L (98-107) Carbon Dioxide Level 27 mmol/L (21-32) Anion Gap 11 (6-14) Blood Urea Nitrogen 28 mg/dL (8-26) Creatinine 6.4 mg/dL (0.7-1.3) Estimated GFR (Cockcroft-Gault) 10.3 Glucose Level 104 mg/dL (70-99) Calcium Level 8.2 mg/dL (8.5-10.1) Test 05/01/19 12:21 05/01/19 16:37 05/01/19 20:53 05/02/19 07:42 Glucose (Fingerstick) 85 mg/dL (70-99) 171 mg/dL (70-99) 164 mg/dL (70-99) 116 mg/dL (70-99) Laboratory Tests Test 05/01/19 12:21 05/01/19 16:37 05/01/19 20:53 05/02/19 07:42 Glucose (Fingerstick) 85 mg/dL (70-99) 171 mg/dL (70-99) 164 mg/dL (70-99) 116 mg/dL (70-99) Microbiology 04/24/19 Anaerobic/Aerobic Culture - Final, Complete 04/24/19 Anaerobic Culture Result 1 (SIXTO) - Final, Complete 04/24/19 Aerobic Culture - Final, Complete 04/24/19 Aerobic Culture Result 1 (SIXTO) - Final, Complete 04/24/19 Aerobic Culture Result 2 (SIXTO) - Final, Complete 04/24/19 Antimicrobic Susceptibility - Final, Complete 04/24/19 Gram Stain - Final, Complete 04/24/19 Gram Stain Result 1 (SIXTO) - Final, Complete 04/24/19 Gram Stain Result 2 (SIXTO) - Final, Complete Medications Current Medications Linezolid/Dextrose 300 ml @ 300 mls/hr Q12HR IV Last administered on 04/30/19 08:38; Start 04/24/19 at 13:30; Stop 04/30/19 at 13:58; Status DC Piperacillin Sod/ Tazobactam Sod 2.25 gm/Sodium Chloride 50 ml @ 100 mls/hr Q8HRS IV Last administered on 04/30/19 06:30; Start 04/24/19 at 14:00; Stop 04/30/19 at 13:58; Status DC Magnesium Hydroxide (Milk Of Magnesia) 2,400 mg PRN DAILY PRN PO CONSTIPATION; Start 04/24/19 at 12:15 Ondansetron HCl (Zofran Odt) 4 mg PRN Q6HRS PRN PO NAUSEA/VOMITING, 1st CHOICE; Start 04/24/19 at 12:15 Tramadol HCl (Ultram) 25 mg PRN Q6HRS PRN PO MODERATE PAIN Last administered on 04/29/19 07:55; Start 04/24/19 at 12:15; Stop 04/29/19 at 11:09; Status DC Aspirin (Ecotrin) 81 mg DAILYWBKFT PO Last administered on 05/02/19 08:16; Start 04/24/19 at 13:30 Sevelamer Carbonate (Renvela) 800 mg TIDWMEALS PO Last administered on 05/02/19 08:15; Start 04/24/19 at 13:30 Cyanocobalamin (Vitamin B-12) 1,000 mcg DAILY PO Last administered on 05/02/19 08:15; Start 04/24/19 at 13:30 Allopurinol (Zyloprim) 100 mg DAILY PO Last administered on 05/02/19 08:16; Start 04/24/19 at 13:30 Atorvastatin Calcium (Lipitor) 40 mg QHS PO Last administered on 05/01/19 21:09; Start 04/24/19 at 21:00 Acetaminophen (Tylenol) 325 mg PRN QID PRN PO MILD PAIN / TEMP Last administered on 04/29/19 06:00; Start 04/24/19 at 12:15 Clopidogrel Bisulfate (Plavix) 75 mg DAILYWBKFT PO Last administered on 05/02/19 08:16; Start 04/24/19 at 13:30 Metoclopramide HCl (Reglan) 5 mg PRN BFRMEALHC PRN PO NAUSEA/VOMITING, 2nd CHOICE; Start 04/24/19 at 12:15 Vitamin D (Vitamin D3) 1,000 unit DAILY PO Last administered on 05/02/19 08:16; Start 04/24/19 at 13:30 Pantoprazole Sodium (Protonix) 40 mg DAILYAC PO Last administered on 05/02/19 07:10; Start 04/24/19 at 13:30 Insulin Human Lispro (HumaLOG) 0-5 UNITS TIDWMEALS SQ Last administered on 05/01/19 17:15; Start 04/24/19 at 17:00 Dextrose (Dextrose 50%-Water Syringe) 12.5 gm PRN Q15MIN PRN IV SEE COMMENTS; Start 04/24/19 at 12:15 Lactobacillus Rhamnosus (Culturelle) 1 cap BID PO Last administered on 05/02/19 08:15; Start 04/24/19 at 13:30 Vitamin B Complex/ Vitamin C (Krista-Beatriz) 1 tab DAILY PO Last administered on 05/02/19 08:16; Start 04/24/19 at 13:30 Piperacillin Sod/ Tazobactam Sod 2.25 gm/Sodium Chloride 50 ml @ 100 mls/hr Q8HRS IV ; Start 04/24/19 at 14:00; Status UNV Clopidogrel Bisulfate (Plavix) 75 mg DAILYWBKFT PO ; Start 04/25/19 at 08:00; Status UNV Metoclopramide HCl (Reglan) 5 mg TIDBFRMEAL PO Last administered on 05/02/19 07:10; Start 04/24/19 at 16:30 Vitamin D (Vitamin D3) 1,000 unit DAILY PO ; Start 04/25/19 at 09:00; Status UNV Pantoprazole Sodium (Protonix) 20 mg DAILYAC PO ; Start 04/25/19 at 07:30; Status UNV Aspirin (Onesimo Aspirin) 81 mg DAILYWBKFT PO ; Start 04/25/19 at 08:00; Status UNV Sevelamer Carbonate (Renvela) 800 mg TIDWMEALS PO ; Start 04/24/19 at 17:00; Status UNV Cyanocobalamin (Vitamin B-12) 1,000 mcg DAILY PO ; Start 04/25/19 at 09:00; Status UNV Lactobacillus Rhamnosus (Culturelle) 1 cap BID PO ; Start 04/24/19 at 21:00; Status UNV Allopurinol (Zyloprim) 100 mg DAILY PO ; Start 04/25/19 at 09:00; Status UNV Atorvastatin Calcium (Lipitor) 40 mg QHS PO ; Start 04/24/19 at 21:00; Status UNV Acetaminophen (Tylenol) 325 mg PRN Q6HRS PRN PO MILD PAIN / TEMP; Start 04/24/19 at 12:15; Status UNV Acetaminophen (Tylenol) 325 mg QID PO Last administered on 05/02/19at 08:16; Start 04/24/19 at 13:30 Ondansetron HCl (Zofran Odt) 4 mg PRN Q6HRS PRN PO NAUSEA/VOMITING; Start 04/24/19 at 12:15; Status UNV Tramadol HCl (Ultram) 25 mg PRN Q6HRS PRN PO PAIN; Start 04/24/19 at 12:15; Status UNV Diphenhydramine HCl (Benadryl) 25 mg PRN Q6HRS PRN PO ITCHING; Start 04/24/19 at 12:15 Magnesium Hydroxide (Milk Of Magnesia) 2,400 mg PRN DAILY PRN PO CONSTIPATION; Start 04/24/19 at 12:15; Status UNV Insulin Human Lispro (HumaLOG) 0-6 UNITS BG 300-39... TIDWMEALS SQ ; Start 04/24/19 at 17:00; Status UNV Sodium Chloride 1,000 ml @ 1,000 mls/hr Q1H PRN IV hypotension; Start 04/24/19 at 17:00; Stop 04/24/19 at 23:00; Status DC Sodium Chloride 1,000 ml @ 400 mls/hr Q2H30M PRN IV PATENCY; Start 04/24/19 at 17:00; Stop 04/24/19 at 23:00; Status DC Info (PHARMACY MONITORING -- do not chart) 1 each PRN DAILY PRN MC SEE COMMENTS; Start 04/24/19 at 17:15; Status UNV Info (PHARMACY MONITORING -- do not chart) 1 each PRN DAILY PRN MC SEE COMMENTS; Start 04/24/19 at 17:15; Stop 04/26/19 at 11:06; Status DC Darbepoetin Reinaldo (Aranesp) 60 mcg WEEKLYHS SQ Last administered on 04/25/19at 22:34; Start 04/25/19 at 21:00 Bacitracin 71977 unit/Sodium Chloride 500 ml @ 500 mls/hr 1X ONCE IRR ; Start 04/26/19 at 06:00; Stop 04/26/19 at 06:59; Status Cancel Ondansetron HCl (Zofran) 4 mg PRN Q6HRS PRN IV NAUSEA/VOMITING; Start 04/26/19 at 07:00; Stop 04/27/19 at 06:59; Status DC Morphine Sulfate (Morphine Sulfate) 1 mg PRN Q10MIN PRN IV SEVERE PAIN 7-10; Start 04/26/19 at 07:00; Stop 04/27/19 at 06:59; Status DC Ringer's Solution 1,000 ml @ 30 mls/hr Q24H IV ; Start 04/26/19 at 07:00; Stop 04/26/19 at 18:59; Status DC Hydromorphone HCl (Dilaudid) 0.5 mg PRN Q10MIN PRN IV SEV PAIN, Second choice; Start 04/26/19 at 07:00; Stop 04/27/19 at 06:59; Status DC Ondansetron HCl (Zofran) 4 mg PRN Q6HRS PRN IV NAUSEA/VOMITING; Start 04/26/19 at 07:00; Stop 04/27/19 at 06:59; Status UNV Morphine Sulfate (Morphine Sulfate) 1 mg PRN Q10MIN PRN IV SEVERE PAIN 7-10; Start 04/26/19 at 07:00; Stop 04/27/19 at 06:59; Status UNV Ringer's Solution 1,000 ml @ 30 mls/hr Q24H IV ; Start 04/26/19 at 07:00; Stop 04/26/19 at 18:59; Status UNV Hydromorphone HCl (Dilaudid) 0.5 mg PRN Q10MIN PRN IV SEV PAIN, Second choice; Start 04/26/19 at 07:00; Stop 04/27/19 at 06:59; Status UNV Sodium Chloride 1,000 ml @ 1,000 mls/hr Q1H PRN IV hypotension; Start 04/26/19 at 07:17; Stop 04/26/19 at 13:16; Status DC Sodium Chloride 1,000 ml @ 400 mls/hr Q2H30M PRN IV PATENCY; Start 04/26/19 at 07:17; Stop 04/26/19 at 19:16; Status DC Info (PHARMACY MONITORING -- do not chart) 1 each PRN DAILY PRN MC SEE COMMENTS; Start 04/26/19 at 07:30; Status UNV Info (PHARMACY MONITORING -- do not chart) 1 each PRN DAILY PRN MC SEE COMMENTS; Start 04/26/19 at 07:30; Stop 05/01/19 at 11:58; Status DC Lidocaine HCl 48 ml/Sodium Bicarbonate 12 meq/Miscellaneous 60 ml @ 60 mls/hr 1X ONCE ID ; Start 04/27/19 at 06:00; Stop 04/27/19 at 06:59; Status DC Ondansetron HCl (Zofran) 4 mg PRN Q6HRS PRN IV NAUSEA/VOMITING; Start 04/27/19 at 07:00; Stop 04/28/19 at 06:59; Status DC Fentanyl Citrate (Fentanyl 2ml Vial) 25 mcg PRN Q5MIN PRN IV MILD PAIN 1-3; Start 04/27/19 at 07:00; Stop 04/28/19 at 06:59; Status DC Fentanyl Citrate (Fentanyl 2ml Vial) 50 mcg PRN Q5MIN PRN IV MODERATE TO SEVERE PAIN Last administered on 04/27/19at 11:55; Start 04/27/19 at 07:00; Stop 04/28/19 at 06:59; Status DC Morphine Sulfate (Morphine Sulfate) 1 mg PRN Q10MIN PRN IV SEVERE PAIN 7-10; Start 04/27/19 at 07:00; Stop 04/28/19 at 06:59; Status DC Hydromorphone HCl (Dilaudid) 0.5 mg PRN Q10MIN PRN IV SEV PAIN, Second choice; Start 04/27/19 at 07:00; Stop 04/28/19 at 06:59; Status DC Prochlorperazine Edisylate (Compazine) 5 mg PACU PRN PRN IV NAUSEA, MRX1; Start 04/27/19 at 07:00; Stop 04/28/19 at 06:59; Status DC Sodium Chloride 1,000 ml @ 0 mls/hr Q0M IV ; Start 04/27/19 at 07:00; Stop 04/29/19 at 11:09; Status DC Propofol 20 ml @ As Directed STK-MED ONCE IV ; Start 04/27/19 at 08:51; Stop 04/27/19 at 08:52; Status DC Famotidine (Pepcid Vial) 20 mg STK-MED ONCE .ROUTE ; Start 04/27/19 at 08:51; Stop 04/27/19 at 08:52; Status DC Lidocaine HCl (Lidocaine Pf 2% Vial) 5 ml STK-MED ONCE .ROUTE ; Start 04/27/19 at 08:51; Stop 04/27/19 at 08:52; Status DC Ondansetron HCl (Zofran) 4 mg STK-MED ONCE .ROUTE ; Start 04/27/19 at 08:51; Stop 04/27/19 at 08:52; Status DC Fentanyl Citrate (Fentanyl 2ml Vial) 100 mcg STK-MED ONCE .ROUTE ; Start 04/27/19 at 09:16; Stop 04/27/19 at 09:17; Status DC Dexamethasone Sodium Phosphate (Decadron) 4 mg STK-MED ONCE .ROUTE ; Start 04/27/19 at 09:48; Stop 04/27/19 at 09:49; Status DC Ephedrine Sulfate (ePHEDrine PF IN SALINE SYRINGE) 50 mg STK-MED ONCE IV ; Start 04/27/19 at 09:53; Stop 04/27/19 at 09:54; Status DC Rocuronium [place] (Zemuron) 50 mg STK-MED ONCE .ROUTE ; Start 04/27/19 at 10:10; Stop 04/27/19 at 10:11; Status DC Lidocaine HCl (Xylocaine 1% Pf 30ml Vial) 60 ml STK-MED ONCE INJ ; Start 04/27/19 at 10:01; Stop 04/27/19 at 10:02; Status Cancel Sevoflurane (Ultane) 60 ml STK-MED ONCE IH ; Start 04/27/19 at 11:04; Stop 04/27/19 at 11:05; Status DC Hydromorphone HCl (Dilaudid) 0.2 mg PRN Q4HRS PRN IVP PAIN; Start 04/27/19 at 11:30; Stop 04/28/19 at 13:10; Status DC Hydromorphone HCl (Dilaudid) 2 mg PRN Q4HRS PRN PO SEVERE PAIN Last administered on 04/28/19at 11:52; Start 04/27/19 at 11:30; Stop 04/28/19 at 13:10; Status DC Lidocaine HCl (Xylocaine-Mpf 1% 2ml Vial) 2 ml STK-MED ONCE .ROUTE ; Start 04/28/19 at 07:56; Stop 04/28/19 at 07:57; Status DC Sodium Chloride 1,000 ml @ 1,000 mls/hr Q1H PRN IV hypotension; Start 04/28/19 at 08:25; Stop 04/28/19 at 14:24; Status DC Diphenhydramine HCl (Benadryl) 25 mg 1X PRN PRN IV ITCHING; Start 04/28/19 at 08:30; Stop 04/29/19 at 08:29; Status DC Diphenhydramine HCl (Benadryl) 25 mg 1X PRN PRN IV ITCHING; Start 04/28/19 at 08:30; Stop 04/29/19 at 08:29; Status DC Sodium Chloride 1,000 ml @ 400 mls/hr Q2H30M PRN IV PATENCY; Start 04/28/19 at 08:25; Stop 04/28/19 at 20:24; Status DC Info (PHARMACY MONITORING -- do not chart) 1 each PRN DAILY PRN MC SEE COMMENTS; Start 04/28/19 at 08:30 Tramadol HCl (Ultram) 50 mg PRN Q6HRS PRN PO MODERATE PAIN Last administered on 05/02/19at 07:10; Start 04/29/19 at 11:15 Lactulose (Lactulose) 20 gm Q2H PO Last administered on 04/29/19at 15:30; Start 04/29/19 at 13:00; Stop 04/29/19 at 15:01; Status DC Sodium Chloride 1,000 ml @ 1,000 mls/hr Q1H PRN IV hypotension; Start 05/01/19 at 07:33; Stop 05/01/19 at 13:32; Status DC Albumin Human 200 ml @ 200 mls/hr 1X PRN PRN IV Hypotension; Start 05/01/19 at 07:45; Stop 05/01/19 at 13:44; Status DC Sodium Chloride 1,000 ml @ 400 mls/hr Q2H30M PRN IV PATENCY; Start 05/01/19 at 07:33; Stop 05/01/19 at 19:32; Status DC Info (PHARMACY MONITORING -- do not chart) 1 each PRN DAILY PRN MC SEE COMMENTS; Start 05/01/19 at 07:45; Status UNV Info (PHARMACY MONITORING -- do not chart) 1 each PRN DAILY PRN MC SEE COMME NTS; Start 05/01/19 at 07:45; Status UNV Active Scripts Active Tramadol Hcl 50 Mg Tablet 50 Mg PO PRN Q6HRS PRN Senna (Sennosides) 8.6 Mg Tablet 2 Tab PO PRN DAILY PRN 30 Days Ondansetron Odt (Ondansetron) 4 Mg Tab.rapdis 4 Mg PO Q6HRS PRN Metoclopramide Hcl 5 Mg Tablet 5 Mg PO TIDACHC Humalog (Insulin Lispro) 100 Unit/1 Ml Insuln.pen 0 Units SQ TIDWMEALS 30 Days BG 150-199= 1 units 200-299= 2 units 300-399= 4 units 400-499= 6 units ac tid sliding scale Reported Vitamin D3 (Cholecalciferol (Vitamin D3)) 1,000 Unit Tablet 1 Tab PO DAILY Vitamin B-12 (Cyanocobalamin (Vitamin B-12)) 1,000 Mcg Tablet 1 Tab PO DAILY Senna (Sennosides) 8.6 Mg Tablet 8.6 Mg PO PRN DAILY PRN 2 tabs Renvela (Sevelamer Carbonate) 800 Mg Tablet 800 Mg PO TIDWMEALS Renal Caps Softgel (Folic Acid/Vitamin B Comp W-C) 1 Mg Capsule 1 Mg PO DAILY Reglan (Metoclopramide Hcl) 10 Mg Tablet 5 Mg PO TID Protonix (Pantoprazole Sodium) 20 Mg Tablet. 1 Tab PO DAILY Probiotic (Lactobacillus Acidophilus) 1 Each Capsule 1 Each PO BID Milk Of Magnesia (Magnesium Hydroxide) 400 Mg/5 Ml Oral.susp 400 Mg PO PRN DAILY PRN Lipitor (Atorvastatin Calcium) 40 Mg Tablet 1 Tab PO QHS Humalog (Insulin Lispro) 100 Unit/1 Ml Insuln.pen 100 Unit SQ TIDBFRMEAL 150-199=1 unit 200-299=2 units 300-399=4 units 100-499=6 units Clopidogrel (Clopidogrel Bisulfate) 75 Mg Tablet 1 Tab PO DAILY Dulcolax (Bisacodyl) 10 Mg Supp.rect 10 Mg RC PRN DAILY PRN Duoneb 0.5-3(2.5) Mg/3 Ml (Albuterol/Ipratropium) 3 Ml Ampul.neb 3 Ml NEB PRN Q4HRS PRN Lac-Hydrin Five (Ammonium Lactate) 226 Gm Lotion 226 Gm TP BID Benadryl Allergy (Diphenhydramine Hcl) 12.5 Mg/5 Ml Liquid 25 Mg PO PRN Q6HRS PRN Allopurinol 100 Mg Tablet 1 Tab PO DAILY Tylenol (Acetaminophen) 325 Mg Tablet 1 Tab PO PRN Q4HRS Aspirin 81 Mg Tab.chew 81 Mg PO DAILY Vitals/I & O Vital Sign - Last 24 Hours 05/01/19 05/01/19 05/01/19 05/01/19 12:47 15:00 19:00 19:40 Temp 98.0 98.7 98.0 98.7 Pulse 67 74 Resp 18 18 B/P (MAP) 111/59 (76) 92/38 (56) Pulse Ox 95 99 O2 Delivery Room Air Room Air Room Air Room Air 05/01/19 05/02/19 05/02/19 05/02/19 23:00 03:00 07:10 07:15 Temp 99.1 99.4 99.1 99.4 Pulse 60 69 Resp 18 18 B/P (MAP) 143/60 (87) 78/34 (49) Pulse Ox 97 100 O2 Delivery Room Air Room Air Room Air Room Air 05/02/19 05/02/19 07:57 08:16 Temp 98.4 98.4 Pulse 64 Resp 18 B/P (MAP) 128/32 (64) Pulse Ox 95 O2 Delivery Room Air Room Air Intake and Output 05/01/19 05/01/19 05/02/19 15:00 23:00 07:00 Intake Total 360 ml 240 ml Output Total 70 ml Balance 360 ml 170 ml KIMI TIDWELL MD May 02, 2019 10:25
--- NOTE | 2019-05-02 10:45 | SNU/HH DC ---
DISCHARGE ORDERS DISCHARGE INFORMATION: DISCHARGE DATE: May 01, 2019 CONDITION ON DISCHARGE: Stable CODE STATUS: Code Status: Full POST DISCHARGE ORDERS: WEIGHT BEARING STATUS: Other, see below (NWB RLE) DIET AFTER DISCHARGE: Renal (ADA renal diet) WOUND/INCISION CARE: Other, see below (continue same wound care at [facility]) FOLLOW-UP: PHYSICIAN FOLLOW-UP: dr. tidwell at [facility] ADDITIONAL FOLLOW-UP: dr. Arteaga in 2 weeks. please arrange appt DISCHARGE MEDICATIONS: Home Meds Active Scripts Tramadol Hcl (TRAMADOL HCL) 50 Mg Tablet, 50 MG PO PRN Q6HRS PRN for MODERATE PAIN, #30 TAB Prov:KIMI TIDWELL MD 04/30/19 Sennosides (SENNA) 8.6 Mg Tablet, 2 TAB PO PRN DAILY PRN for CONSTIPATION for 30 Days, TAB Prov:KIMI TIDWELL MD 04/30/19 Ondansetron (ONDANSETRON ODT) 4 Mg Tab.rapdis, 4 MG PO Q6HRS PRN for NAUSEA/VOMITING, #30 TAB Prov:KIMI TIDWELL MD 03/16/19 Metoclopramide Hcl (METOCLOPRAMIDE HCL) 5 Mg Tablet, 5 MG PO TIDACHC for nausea, #100 TAB Prov:KIMI TIDWELL MD 01/05/19 Insulin Lispro (HUMALOG) 100 Unit/1 Ml Insuln.pen, 0 UNITS SQ TIDWMEALS for diabetes for 30 Days, EACH BG 150-199= 1 units 200-299= 2 units 300-399= 4 units 400-499= 6 units ac tid sliding scale Prov:KIMI TIDWELL MD 11/11/18 Reported Medications Cholecalciferol (Vitamin D3) (VITAMIN D3) 1,000 Unit Tablet, 1 TAB PO DAILY for supplement, #30 TAB 5 Refills 04/24/19 Cyanocobalamin (Vitamin B-12) (VITAMIN B-12) 1,000 Mcg Tablet, 1 TAB PO DAILY for supplement, #30 TAB 2 Refills 04/24/19 Sennosides (SENNA) 8.6 Mg Tablet, 8.6 MG PO PRN DAILY PRN for CONSTIPATION, TAB 2 tabs 04/24/19 Sevelamer Carbonate (RENVELA) 800 Mg Tablet, 800 MG PO TIDWMEALS for esrd, TAB 04/24/19 Folic Acid/Vitamin B Comp W-C (RENAL CAPS SOFTGEL) 1 Mg Capsule, 1 MG PO DAILY for supplement, CAP 04/24/19 Metoclopramide Hcl (REGLAN) 10 Mg Tablet, 5 MG PO TID for nausea, #120 TAB 0 Refills 04/24/19 Pantoprazole Sodium (PROTONIX) 20 Mg Tablet.dr, 1 TAB PO DAILY for gerd, #30 TAB 04/24/19 Lactobacillus Acidophilus (PROBIOTIC) 1 Each Capsule, 1 EACH PO BID for supplement, CAP 04/24/19 Magnesium Hydroxide (MILK OF MAGNESIA) 400 Mg/5 Ml Oral.susp, 400 MG PO PRN DAILY PRN for CONSTIPATION, MISC 04/24/19 Atorvastatin Calcium (LIPITOR) 40 Mg Tablet, 1 TAB PO QHS for hyperlipidemia, #90 TAB 1 Refill 04/24/19 Insulin Lispro (HUMALOG) 100 Unit/1 Ml Insuln.pen, 100 UNIT SQ TIDBFRMEAL for dm, SYR 150-199=1 unit 200-299=2 units 300-399=4 units 100-499=6 units 04/24/19 Clopidogrel Bisulfate (CLOPIDOGREL) 75 Mg Tablet, 1 TAB PO DAILY for dvt, #90 TAB 1 Refill 04/24/19 Bisacodyl (DULCOLAX) 10 Mg Supp.rect, 10 MG RC PRN DAILY PRN for CONSTIPATION, SUPP.RECT 0 Refills 04/24/19 Ipratropium/Albuterol Sulfate (DUONEB 0.5-3(2.5) MG/3 ML) 3 Ml Ampul.neb, 3 ML NEB PRN Q4HRS PRN for WHEEZING, EACH 03/13/19 Ammonium Lactate (Lac-Hydrin Five) 226 Gm Lotion, 226 GM TP BID for itching, MISC 03/13/19 Diphenhydramine Hcl (BENADRYL ALLERGY) 12.5 Mg/5 Ml Liquid, 25 MG PO PRN Q6HRS PRN for ITCHING, LIQUID 03/13/19 Allopurinol (ALLOPURINOL) 100 Mg Tablet, 1 TAB PO DAILY for gout, #90 TAB 3 Refills 11/24/18 Acetaminophen (TYLENOL) 325 Mg Tablet, 1 TAB PO PRN Q4HRS for pain/temp, #30 TAB 11/24/18 Aspirin (ASPIRIN) 81 Mg Tab.chew, 81 MG PO DAILY for prophylaxis, TAB.CHEW 11/24/18 Discontinued Reported Medications Acetaminophen (TYLENOL) 325 Mg Tablet, 325 MG PO QID for pain, TAB 04/24/19 Acetaminophen (TYLENOL) 325 Mg Tablet, 1 TAB PO PRN Q4HRS for pain or inc temp, #30 TAB 04/24/19 Ammonium Lactate (SKIN TREATMENT) 225 Gm Lotion, 225 GM TP BID for skin integrity, MISC 04/24/19 Aspirin (ASPIR-LOW) 81 Mg Tablet.dr, 1 TAB PO DAILY for atherosclerotic heart disease, #30 TAB 3 Refills 04/24/19 Allopurinol (ALLOPURINOL) 100 Mg Tablet, 1 TAB PO DAILY for gout, #30 TAB 5 Refills 04/24/19 Bisacodyl (BISACODYL) 10 Mg Supp.rect, 10 MG RC PRN DAILY PRN for CONSTIPATION, SUPP.RECT 0 Refills 04/11/19 Pantoprazole Sodium (PROTONIX) 20 Mg Tablet.dr, 1 TAB PO DAILY for GERD, #30 TAB 04/11/19 Magnesium Hydroxide (MILK OF MAGNESIA) 400 Mg/5 Ml Oral.susp, 400 MG PO PRN DAILY PRN for CONSTIPATION, MISC 03/13/19 Cyanocobalamin (Vitamin B-12) (VITAMIN B-12) 1,000 Mcg Tablet, 1 TAB PO DAILY for supplement, #30 TAB 2 Refills 11/24/18 Folic Acid/Vitamin B Comp W-C (RENAL CAPS SOFTGEL) 1 Mg Capsule, 1 CAP PO DAILY for renal vitamin, #90 CAP 3 Refills 11/24/18 Lactobacillus Acidophilus (Acidophilus Lactobacilli) 1 Each Capsule, 1 EACH PO BID for prophylaxis, CAP 11/24/18 Sevelamer Carbonate (RENVELA) 800 Mg Tablet, 800 MG PO TIDWMEALS for ESRD, TAB 11/24/18 Atorvastatin Calcium (LIPITOR) 40 Mg Tablet, 40 MG PO HS for FOR CHOLESTEROL, #30 TAB 0 Refills 11/24/18 Clopidogrel Bisulfate (CLOPIDOGREL) 75 Mg Tablet, 75 MG PO DAILY for TO PREVENT BLOOD CLOTS, #30 TAB 0 Refills 11/24/18 Cholecalciferol (Vitamin D3) (VITAMIN D-3) 2,000 Unit Capsule, 1000 UNIT PO DAILY, CAP 09/13/17 Ondansetron Hcl (ZOFRAN) 4 Mg Tablet, 1 TAB PO Q6HRS for nausea and vomiting, #20 TAB 04/24/19 Tramadol Hcl (TRAMADOL HCL) 50 Mg Tablet, 25 MG PO Q6HRS PRN for PAIN, TAB 04/24/19 Ipratropium/Albuterol Sulfate (DUONEB 0.5-3(2.5) MG/3 ML) 3 Ml Ampul.neb, 3 ML N EB PRN Q4HRS PRN for DYSPEPSIA, EACH 04/24/19 Clindamycin Hcl (CLINDAMYCIN HCL) 150 Mg Capsule, 150 MG PO TID for foot infection, CAP 04/24/19 Diphenhydramine Hcl (BENADRYL ALLERGY) 12.5 Mg/5 Ml Liquid, 10 ML PO PRN Q6-8HRS for itching, #120 ML 04/24/19 Tramadol Hcl (TRAMADOL HCL) 50 Mg Tablet, 0.5 MG PO PRN Q6HRS PRN for PAIN, TAB 0 Refills 04/11/19 Discontinued Scripts Cephalexin (CEPHALEXIN) 250 Mg Capsule, 500 MG PO BID for post skin graft for 14 Days, #28 CAP Prov:KIMI TIDWELL MD 03/16/19 KIMI TIDWELL MD May 02, 2019 10:45
[2019-05-02 11:00] VITALS: BP 148/33
--- NOTE | 2019-05-02 13:24 | NUR ---
Pt. discharged to [facility] via [facility]. RLE brace and dressing CDI. L heel dressing CDI
--- NOTE | 2019-05-02 13:39 | NUR ---
SW following. Pt will discharge to [facility] between 1130 and 1230. [employer] transporting pt, RN notified.
== END 2019-05-02 13:25 | disposition home or self-care (01) | DRG 856 ==
LOC: 4 NORTH 11:41
PROVIDERS: ADMIT Internal Medicine; ATTEND Internal Medicine
PROC: 5A1D70Z Performance of Urinary Filtration, Intermittent, Less than 6 Hours Per Day (ICD-10-PCS; 2019-04-24)
PROC: 30233N1 Transfusion of Nonautologous Red Blood Cells into Peripheral Vein, Percutaneous Approach (ICD-10-PCS; 2019-04-26)
PROC: 5A1D70Z Performance of Urinary Filtration, Intermittent, Less than 6 Hours Per Day (ICD-10-PCS; 2019-04-26)
PROC: 0Y6H0Z1 Detachment at Right Lower Leg, High, Open Approach (ICD-10-PCS; principal; 2019-04-27 09:15)
PROC: 5A1D70Z Performance of Urinary Filtration, Intermittent, Less than 6 Hours Per Day (ICD-10-PCS; 2019-04-28)
PROC: 5A1D70Z Performance of Urinary Filtration, Intermittent, Less than 6 Hours Per Day (ICD-10-PCS; 2019-05-01)
DX: T81.49XA Infection following a procedure, other surgical site, initial encounter (principal); N18.6 End stage renal disease; E11.52 Type 2 diabetes mellitus with diabetic peripheral angiopathy with gangrene; I13.2 Hypertensive heart and chronic kidney disease with heart failure and with stage 5 chronic kidney disease, or end stage renal disease; I50.32 Chronic diastolic (congestive) heart failure; I69.354 Hemiplegia and hemiparesis following cerebral infarction affecting left non-dominant side; L97.429 Non-pressure chronic ulcer of left heel and midfoot with unspecified severity; E11.42 Type 2 diabetes mellitus with diabetic polyneuropathy; E11.22 Type 2 diabetes mellitus with diabetic chronic kidney disease; D63.8 Anemia in other chronic diseases classified elsewhere; E66.01 Morbid (severe) obesity due to excess calories; E78.5 Hyperlipidemia, unspecified; F03.90 Unspecified dementia, unspecified severity, without behavioral disturbance, psychotic disturbance, mood disturbance, and anxiety; G47.33 Obstructive sleep apnea (adult) (pediatric); G54.6 Phantom limb syndrome with pain; I25.10 Atherosclerotic heart disease of native coronary artery without angina pectoris; I48.2 Chronic atrial fibrillation; I87.8 Other specified disorders of veins; I89.0 Lymphedema, not elsewhere classified; J44.9 Chronic obstructive pulmonary disease, unspecified; K21.9 Gastro-esophageal reflux disease without esophagitis; M19.90 Unspecified osteoarthritis, unspecified site; K59.00 Constipation, unspecified; T81.89XA Other complications of procedures, not elsewhere classified, initial encounter; I49.5 Sick sinus syndrome; E11.621 Type 2 diabetes mellitus with foot ulcer; L97.519 Non-pressure chronic ulcer of other part of right foot with unspecified severity; Z79.02 Long term (current) use of antithrombotics/antiplatelets; Z79.82 Long term (current) use of aspirin; Z79.899 Other long term (current) drug therapy; Z82.49 Family history of ischemic heart disease and other diseases of the circulatory system; Z83.3 Family history of diabetes mellitus; Z86.010 Personal history of colon polyps; Z89.511 Acquired absence of right leg below knee; Z89.412 Acquired absence of left great toe; Z95.5 Presence of coronary angioplasty implant and graft; Z99.2 Dependence on renal dialysis; Z99.3 Dependence on wheelchair; Z79.2 Long term (current) use of antibiotics
CPT/HCPCS: 36415; 71045; 80048; 80053; 82962; 83036; 83735; 84100; 85014; 85018; 85025; 85027; 85651; 86140; 86850; 86900; 86901; 86920; 87071; 87075; 87641; 88307; 88311; 93005; 93306; A7015; J0171; J0881; J1100; J1815; J2001; J2020; J2405; J2543; J2704; J3010; J3490; J8597; P9016; 97110; 97530; A4461

== ENCOUNTER → 2019-05-16 | Outpatient (CLI) | payer BC, OTHER ==
[2019-05-02 11:00] VITALS: BP 148/33
[~2019-05-16] MED LIST changes: +AMMO225L8 TP; +ASPI81TA50 PO; +CLIN150C14 PO; +LACT1CAP6 PO
[2019-05-16 05:56] LABS: BASO # 0.1 x10^3/uL (0.0-0.2); BASO % 1 % (0-3); EOS # 0.6 x10^3/uL (0.0-0.7); EOS % 6 % (0-3); HEMATOCRIT 32.9 % (39.0-53.0); HEMOGLOBIN 10.9 g/dL (13.0-17.5); LYMPH # 1.6 x10^3/uL (1.0-4.8); LYMPH % 17 % (24-48); MEAN CORPUSCULAR HEMOGLOBIN 29 pg (25-35); MEAN CORPUSCULAR HGB CONC 33 g/dL (31-37); MEAN CORPUSCULAR VOLUME 87 fL (79-100); MONO # 0.6 x10^3/uL (0.0-1.1); MONO % 6 % (0-9); NEUT # 6.6 x10^3uL (1.8-7.7); NEUT % 70 % (31-73); PLATELET COUNT 254 x10^3/uL (140-400); RED BLOOD COUNT 3.79 x10^6/uL (4.30-5.70); RED CELL DISTRIBUTION WIDTH 19.5 % (11.5-14.5); WHITE BLOOD COUNT 9.5 x10^3/uL (4.0-11.0)
== END | disposition home or self-care (01) ==
LOC: SPEC 01:03
PROVIDERS: ATTEND Internal Medicine
DX: Z47.81 Encounter for orthopedic aftercare following surgical amputation (principal)
CPT/HCPCS: 36415; 82550; 85025; 85651

== ENCOUNTER → 2019-05-31 | Outpatient (CLI) | payer BC ==
[2019-05-31] VITALS (9 sets, daily range): BP systolic 100–136; BP diastolic 57–70
[~2019-05-31] VITALS: Ht 170.2 cm; Wt 124.3 kg
[~2019-05-31] MED LIST changes: +HEPARIN for IV BOLUS 10,000 UNIT/10 ML VIAL. IV ONE; +HEPARIN for IV BOLUS 10,000 UNIT/10 ML VIAL. ONE; +IODIXANOL 320 MG/ML 100 ML VIAL. IART ONE; +IODIXANOL 320 MG/ML 100 ML VIAL. ONE; +LIDOCAINE 1% Multi-Dose 20 ML VIAL. INJ ONE; +LIDOCAINE 1% Multi-Dose 20 ML VIAL. ONE; +MIDAZOLAM HCL/PF 5 MG/5 ML VIAL. IV ONE; +MIDAZOLAM HCL/PF 5 MG/5 ML VIAL. ONE; +OMEP20TA8 PO; -PANT40TA5 PO; +PANT40TA77 PO; +fentaNYL PF VIAL 250 MCG/5 ML VIAL IV ONE; +fentaNYL PF VIAL 250 MCG/5 ML VIAL ONE
[2019-05-31 10:30] LABS: HEMATOCRIT 35.5 % (39.0-53.0); HEMOGLOBIN 11.6 g/dL (13.0-17.5); RED BLOOD COUNT 4.05 x10^6/uL (4.30-5.70); WHITE BLOOD COUNT 11.8 x10^3/uL (4.0-11.0)
[2019-05-31 10:40] LABS: CALCIUM 9.3 mg/dL (8.5-10.1); CREATININE 3.7 mg/dL (0.7-1.3); GFR 19.3; POTASSIUM 3.3 mmol/L (3.5-5.1)
[2019-05-31 11:02] LABS: PROTHROMBIN TIME PATIENT 18.9 SEC (11.7-14.0)
--- NOTE | 2019-05-31 15:01 | PDOC4 ---
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 Surgeon: Kimani Broussard MD Anesthesia Type: conscious sedation under surgeon and RN supervision -- 60 minutes -- versed 1.5mg fentanyl 75 mcg Blood Loss: minimal Specimans Obtained: none Findings: 1) Aorta widely patent without aneurysm or significant occlusive disease 2) bilateral common iliac arteries calcified but without flow limiting stenosis 3) bilateral external iliac arteries calcified but without flow limiting stenosis 4) left common femoral artery with distal 60% calcified stenosis 5) left SFA with diffuse calcified plaque with several areas of moderate stenosis 6) left distal popliteal artery P3 segment shows high grade calcified stenosis > 60% 7) left MATT occludes shortly after its origin - the DP in the foot is small and calcified with minimal flow out into the foot 8) the peroneal occludes shortly after it's origin and is poorly seen distally 9) the PT is patent but with diffuse stenosis -- responded well to angioplasty -- but the PT then occludes at the ankle and I was unable to pass any catheter / wire into the foot Complications: none Operative Note: the patient was taken to the medical lab director and the groins were prepped and draped in the usual sterile fashion. A timeout was performed and sedation with IV fentanyl and versed given with appropriate monitoring devices in place. attention was directed to the right groin where the right common femoral artery was marked over the femoral head and examined with ultrasound -- the vessel was found to be patent with good flow and an image of the vessel was taken and saved for the medical record. Attention was directed to the groin where under U/S guidance local anesthetic was injected and the CHIEF RELAY TESTER was accessed with a micropuncture wire. this was used to introduce a micropuncture sheath retrograde with good backbleeding. this was used to exchange the wire for a Bentson wire and this was used to exchange for a 5F pinnacle sheath. This was aspirated and flushed without difficulty. These were used to pass a catheter into the aorta and an aortogram was obtained. The catheter was pulled to the aortic bifurcation and oblique pelvic angiograms were obtained. the catheter was used to hook the aortic bifurcation and pass a Bentson wire then catheter to the left CHIEF RELAY TESTER. left leg runoff to the foot was obtained. heparin was given and I passed a supracore wire to the left poplilteal artery. This was used to exchange for a 6F 90cm terumo destination sheath passed up and over to the left popliteal P1 segment under fluoro guidance. I used a combination of catheters / wires to cross the SOCIAL STAFF WORKER stenosis and balloon angioplasty the SOCIAL STAFF WORKER with a 3 x 100 balloon with multiple overlapping inflations. This showed good results but I was unable to pass any wire through the SECURITY COMPLIANCE SPECIALIST at the ankle. I then tried to cross the MATT long segment SECURITY COMPLIANCE SPECIALIST but was unsuccessful. the Sheath was removed over a Bentson wire and this was used to deliver a 6F angioseal sheath -- the 6 F angioseal closure device was deployed at the right CHIEF RELAY TESTER access site with excellent hemostasis. The patient was escorted to recovery in stable condition. He was examined and found to have no groin access site issues. RICH BROUSSARD MD May 31, 2019 15:01
--- NOTE | 2019-05-31 16:12 | NUR ---
Discharge Note: NARENDRA MACIAS Discharge instructions and discharge home medications reviewed with Food And Beverage Server and a copy given. All questions have been answered and understanding verbalized. The following instructions and handouts were given: groin site care and moderate sedation Discontinued lines and drains: Peripheral IV intact. Patient discharged to [facility] with Wheelchair van [facility] Wheelchair. Report given to Fred MARTINEZ at [facility]. Dr. Rain advises another amputation surgery. Right groin site is soft and no bleeding noted. Adult brief in place and patient's shorts placed back on him for return trip to facility. Chair lift used to transfer patient back to wheelchair for transport.
== END ==
LOC: CCL 09:47 → EDSTATUS 12:00
PROVIDERS: ATTEND Surgery Vascular Surgery
DX: I70.263 Atherosclerosis of native arteries of extremities with gangrene, bilateral legs (principal)
CPT/HCPCS: 36415; 37228; 75625; 75710; 76937; 80048; 85027; 85610; 99152; 99153; C1713; C1760; C1769; C1885; C1892; C1894; J1644; J2250; J3010; Q9967; G0269; C1771